=== PATIENT | male | born 1965 | race Caucasian/White ===

== ENCOUNTER → 2016-10-24 | Outpatient (CLI) | payer OTHER ==
[~2016-10-24] MED LIST: /BACL20TA; /BACL20TA OR; /CELE20CA PO; /FENT25PA TD; AMBI10TA PO; AMIT25TA2 OR; AMIT50TA PO; AMIT50TA2 OR; ATEN50TA2; ATEN50TA2 OR; BUPIVACAINE HCL 0.25% 10 ML VIAL As Ordered ONE; BUPIVACAINE HCL 0.25% 30 ML VIAL As Ordered ONE; COLA100C2; COLA100C2 OR; DURAGESIC PATCH; FISH1000 PO; FLON0.05; HYZAAR; HYZAAR OR; KETO-28; KETO-28 OR; LEVO25TABR PO; LYRI200C; LYRI200C OR; LYRI300C OR; NORT25CA2; NORT25CA2 OR; OXYC10TA56; PERC5TAB8; PERC5TAB8 OR; PINDOLOL; PINDOLOL OR; POTASSIUM PO; ROBA750T OR; SKEL800T5 OR; SOMA350T PO; TOPI100T; TOPI100T OR; TOPI200T; TOPOMAX OR; TORA; TORADOL; TORADOL IM; TRIA37.53 PO; TRIAMCINOLONE ACETONIDE SUSP 40 MG/ML VIAL (J3301) As Ordered ONE; VALI5TAB OR; VOLT1GEL TOP; [UNRECOGNIZED DRUG - OTHER] OR
--- NOTE | 2016-10-28 00:08 | ECWPNPC ---
PATIENT NAME: ALEX JI : 1965 GENDER: MALE VISIT DATE: 10/24/2016 DISCHARGE DATE: 10/24/16 1335 VISIT LOCKED DATE TIME: PHYSICIAN: JAVON LEONARDO RESOURCE: JAVON LEONARDO REASON FOR APPOINTMENT 1. TPI UNDER W/C HISTORY OF PRESENT ILLNESS HISTORY OF PRESENT ILLNESS: PAIN THE PATIENT DESCRIBES THE PAIN... FALL RISK SCREENING: SCREENING :NO FALLS IN THE PAST YEAR CURRENT MEDICATIONS TAKING ATENOLOL 50 MG TABLET 1 TABLET ORALLY BID, NOTES: 10/23/16@0 TAKING HYZAAR 100-25 MG TABLET 1 TABLET ORALLY ONCE A DAY, NOTES: 10/23/16 TAKING TRIAMTERENE-HCTZ 37.5-25 MG TABLET 1 TABLET IN THE MORNING ORALLY ONCE A DAY, NOTES: 0600 TAKING KETOROLAC TROMETHAMINE 10 MG TABLET 1 TABLET NEEDED ORALLY EVERY 6 HRS PRN, NOTES: 10/22/16@1500 TAKING LEVOTHYROXINE SODIUM 50 MCG TABLET 1 TABLET ORALLY ONCE A DAY, NOTES: 10/23/16@1000 TAKING PINDOLOL 5 MG TABLET 1 TABLET ORALLY QID, NOTES: 10/24/16@06 TAKING POTASSIUM CHLORIDE 10 PACKET 1 PACKET ORALLY ONCE A DAY, NOTES: 10/24/16@599 TAKING METFORMIN HCL ER 750 MG TABLET EXTENDED RELEASE 24 HOUR ORALLY TWICE A DAY, NOTES: 10/23/16@2000 TAKING TOUJEO SOLOSTAR 300 UNIT/ML SOLUTION PEN-INJECTOR 20 UNITS SUBCUTANEOUS EVERY A M, NOTES: 10/23/16@599 TAKING SOMA 350 MG TABLET 1 TABLET ORALLY AT BEDTIME MDD=1, NOTES: 10/23/16@2199 TAKING ROBAXIN-750 750 MG TABLET 1 TABLET ORALLY Q6H PRN, NOTES: 10/24/16 TAKING COLACE 100 MG CAPSULE 1 CAPSULE NEEDED ORALLY ONCE A DAY, NOTES: 10/23/16 TAKING TOPAMAX 100 MG TABLET 1 TABLET ORALLY TWICE A DAY, NOTES: 10/24/16@00 TAKING AMITRIPTYLINE HCL 50 MG TABLET 3 ORALLY ONCE A DAY, NOTES: 10/23/16@2199 TAKING LYRICA 300 MG CAPSULE 1 CAPSULE ORALLY Q12H MDD2, NOTES: 1/10/17@2200 TAKING FENTANYL 50 MCG/HR PATCH 72 HOUR 1 PATCH TO SKIN TRANSDERMAL 1 PATCH Q72H MDD 1 PATCH Q72H, NOTES: 10/24/16 ON TAKING PERCOCET 7.5-325 MG TABLET 1 ORALLY Q6H PRN MDD4, NOTES: 10/24/16@0600 NOT-TAKING ZYRTEC 10 MG TABLET 1 TABLET NEEDED ORALLY ONCE A DAY NOT-TAKING FLONASE 50 MCG/ACT SUSPENSION 1 SPRAY IN EACH NOSTRIL NASALLY ONCE A DAY MEDICATION LIST REVIEWED AND RECONCILED WITH THE PATIENT PAST MEDICAL HISTORY DM, HTN, CHRONIC PAIN , THYROID DISEASE, GERD, MIGRANES ALLERGIES AZITHROMYCIN: LIP SWELLING: ALLERGY SUMATRIPTAN: FACIAL SWELLING: ALLERGY PROPOXYPHENE: PRICKLY FEELING, RASH, SOB: ALLERGY ZYRTEC: RASH: ALLERGY SURGICAL HISTORY FUSION C3-C4 1994 3 SURGURIES TO LEFT KNEE 1993 SOCIAL HISTORY GENERAL: TOBACCO USE ARE YOU A:NONSMOKER LEARNING BARRIERS / SPECIAL NEEDS ABILITY TO UNDERSTAND WRITTEN INSTRUCTIONS AVERAGE , KNOWLEDGE OF EDUCATIONAL NEEDS/TREATMENT PLAN AVERAGE , RESTORATIONIST? YES CONGREGATION, LEARNING PREFERENCE VERBAL INSTRUCTION/DEMONSTRATION, READING , ORIENTED TO PLAN OF CARE: PATIENT , PAIN MANAGEMENT PATIENT , TEACHING MATERIALS PRINTED HANDOUT , RESPONSE TO EDUCATION DEMOSTRATES INDEPENDENTELY , TEACHING MATERIALS PRINTED HANDOUT , RESPONSE TO EDUCATION DEMONSTRATES INDEPENDENTLY , ORIENTED TO PLAN OF CARE: PATIENT, PAIN MANAGEMENT PATIENT, ORIENTED TO PLAN OF CARE: PATIENT, PAIN MANAGEMENT PATIENT. NEW PATIENT PAIN DIARY TODAY'S VISITNOTES FROM 0-10, WHAT LEVEL IS YOUR PAIN TODAY?0 PAIN CLINIC PFS, CLERGY, PUBLIC HEALTH REFERRALS PFS REFERRAL NEEDED?NO CLERGY REFERRAL NEEDED?NO PUBLIC HEALTH REFERRAL NEEDED?NO WAS THE PROVIDER NOTIFIED OF ANY PERTINENT INFO?NO PFS REFERRAL NEEDED?NO CLERGY REFERRAL NEEDED?NO PUBLIC HEALTH REFERRAL NEEDED?NO WAS THE PROVIDER NOTIFIED OF ANY PERTINENT INFO?NO ADVANCED DIRECTIVES HEALTH CARE PROXY? YES POWER OF STATION HELPER? YES HOSPITALIZATION/MAJOR DIAGNOSTIC PROCEDURE SURGERIES HYPERTENSION HEAD INJURY 03/1986 REVIEW OF SYSTEMS CONSTITUTIONAL: ANY CHANGE IN YOUR MEDICAL CONDITION? NO . CHILLS NO . FEVER NO . INFECTION: DO YOU HAVE NEW INFECTIONS? NO . DO YOU HAVE HISTORY OF MRSA? NO . MUSCULOSKELETAL: ANY NEW PATTERNS OF PAIN OR NUMBNESS? NO . GASTROENTEROLOGY: ANY NEW CHANGE IN BOWEL CONTROL? NO . GENITOURINARY: ANY NEW CHANGE IN BLADDER CONTROL? NO . IS THERE A CHANCE YOU COULD BE ? NO . HEMATOLOGY/LYMPH: DO YOU TAKE ANY BLOOD THINNERS? (FOR EXAMPLE- COUMADIN, PLAVIX, AGGRENOX, PLATEL, PRADAXA, OR XARELTO) NO . WHEN WAS YOUR LAST DOSE? DATE: TIME: . NEUROLOGY: HAVE YOU FALLEN IN THE PAST 6 MONTHS? NO . ANY NEW EXTREMITY NUMBNESS OR WEAKNESS? NO . CARDIOLOGY: DO YOU HAVE A PACEMAKER OR DEFIBRILLATOR? NO . RESPIRATORY: HAVE YOU BEEN SICK IN THE PAST WEEK? NO . FEVER NO . FLU LIKE SYMPTOMS? NO . COUGH NO . INTEGUMENTARY: DO YOU HAVE ANY RASHES OR OPEN SORES? NO . ALLERGIC/IMMUNO: ARE YOU ALLERGIC TO SHELLFISH OR IV DYE? NO . ANY NEW ALLERGIES? NO . PSYCHIATRIC: DO YOU HAVE THOUGHTS OF HURTING YOURSELF OR SOMEONE ELSE? NO . ARE YOU ABUSED, NEGLECTED, OR IN AN UNSAFE ENVIRONMENT? NO . ENDOCRINOLOGY: ARE YOU DIABETIC? YES . OTHER: DO YOU NEED ANY PRESCRIPTIONS? NO . IF YES, PLEASE LIST: ____ . ANY NEW PROBLEMS WITH YOUR MEDICATIONS? NO . WHEN DID YOU LAST EAT? ____10/23/16 . WHEN DID YOU LAST DRINK? ____10/23/16 . WHAT DID YOU LAST DRINK? ____WATER @0600 WITH MEDS . NAME OF PERSON DRIVING YOU HOME? ____WIFE . DO YOU HAVE ANY OTHER QUESTIONS OR CONCERNS NO . REVIEWED BY: PROVIDER: . VITAL SIGNS WT 330 LBS, HT 75 IN, BMI 41.24 INDEX, BP 122/76 MM HG, HR 79 /MIN, RR 18 /MIN, TEMP 97.9 F, OXYGEN SAT % 95%, NA INITIALS SC 10:16, REVIEWED BY: VD. ASSESSMENTS MYALGIA - M79.1 (PRIMARY) PROCEDURES PN TRIGGER POINT INJECTION WITH STEROIDS PRE PROCEDURE DIAGNOSIS 1. MYALGIA 2. PAIN AT BILATERAL NECK, BILATERAL SHOULDER, AND BILATERAL THORACIC AREA POST PROCEDURE DIAGNOSIS 1. MYALGIA 2. PAIN AT BILATERAL NECK, BILATERAL SHOULDER, AND BILATERAL THORACIC AREA PROCEDURE TRIGGER POINT INJECTION AT BILATERAL NECK, BILATERAL SHOULDER, AND BILATERAL THORACIC AREA SURGEON DR. JAVON LEONARDO FOXING CLOSER NONE ANESTHESIA LOCAL PRE PROCEDURE NOTE THE PATIENT HAS A HISTORY OF CHRONIC PAIN AT THE RIGHT AND LEFT NECK, RIGHT AND LEFT SHOULDER, AND RIGHT AND LEFT THORACIC AREA. I EVALUATE THE PATIENT AND REVIEWED THE CHART. THERE IS EVIDENCE OF BANDS OF TISSUE WITH RESTRICTION OF MOVEMENT AND PRESENCE OF TRIGGER POINT AT THE AFFECTED AREA. I WENT OVER THE RISKS, ALTERNATIVES, AND BENEFITS ASSOCIATED WITH THIS PROCEDURE. THE PATIENT WOULD LIKE TO PROCEED AND GIVE CONSENT TO PERFORMED THE PROCEDURE. THE PATIENT DENIES UNEXPLAINABLE WEIGHT LOSS, FEVER, CHILLS, OR NEW CHANGES IN URINARY OR BOWEL CONTROL DESCRIPTION OF PROCEDURE THE PATIENT WAS BROUGHT TO THE PROCEDURE ROOM AND PLACED IN THE SITTING POSITION. THE AREA WAS CLEANED WITH ALCOHOL. THE PROCEDURE WAS DONE USING ASEPTIC STERILE TECHNIQUE. I CHECKED LATERALITY AND THE LEVEL WHERE THE PROCEDURE WAS GOING TO BE PERFORMED WITH THE PATIENT AND THE SUPPORTING STAFF AT THE MOMENT OF THE TIME OUT IN THE PROCEDURE ROOM. USING A 25-GAUGE NEEDLE, TRIGGER POINTS WERE INJECTED AT THE RIGHT AND LEFT NECK, RIGHT AND LEFT SHOULDER, AND RIGHT AND LEFT THORACIC AREA WITH A TOTAL OF 40 ML OF BUPIVACAINE 0.25% AND KENALOG 40 MG. THERE WAS NO EVIDENCE OF BLOOD, PARESTHESIA OR CEREBROSPINAL FLUID DURING THE PROCEDURE. THE PATIENT WAS SENT TO THE RECOVERY ROOM. THE PATIENT WAS MOVING THE EXTREMITIES AND DOING WELL. THERE WAS NO COMPLICATION DURING THE PROCEDURE POST PROCEDURE NOTE THE PATIENT WILL BE SEEN IN A FOLLOW UP IN THE NEXT FEW WEEKS. INSTRUCTIONS WERE GIVEN, QUESTIONS WERE ANSWERED, AND THE PATIENT EXPRESSED UNDERSTANDING AND AGREES WITH THE PLAN. PN WORKMANS' COMP OPINION IN YOUR OPINION, WAS THE INCIDENT THAT THE PATIENT DESCRIBED THE COMPETENT MEDICAL CAUSE OF THIS INJURY/ILLNESS? YES ARE THE PATIENT'S COMPLAINTS CONSISTENT WITH HIS/HER HISTORY OF THE INJURY/ILLNESS? YES IS THE PATIENT'S HISTORY OF THE INJURY/ILLNESS CONSISTENT WITH YOUR OBJECTIVE FINDING? YES WHAT IS THE PERCENTAGE OF TEMPORARY IMPAIRMENT? TOTAL = 100% IS THE PATIENT WORKING? NO DOCTOR ON SITE: JAVON VALDEZ MD PROCEDURE CODES 29135 INJECT TRIGGER POINTS, =/> 3 FOLLOW UP 3 WEEKS ELECTRONICALLY SIGNED BY JAVON LEONARDO MD ON 10/27/2016 AT 05:59 PM EST DISCLAIMER : THIS IS A VISIT SUMMARY EXTRACTED FROM THE [employer] CHART. IT IS NOT A COPY OF THE [employer] PROGRESS NOTE. MTDShiloh
== END ==
LOC: M PAIN 09:40
PROVIDERS: ATTEND Anesthesiology
DX: G89.29 Other chronic pain (principal); M79.1 Myalgia; M54.6 Pain in thoracic spine; M54.2 Cervicalgia; M25.511 Pain in right shoulder; M25.512 Pain in left shoulder; Z79.899 Other long term (current) drug therapy; Z79.891 Long term (current) use of opiate analgesic; Z79.84 Long term (current) use of oral hypoglycemic drugs; Z88.1 Allergy status to other antibiotic agents; Z88.5 Allergy status to narcotic agent; Z88.8 Allergy status to other drugs, medicaments and biological substances
CPT/HCPCS: 20553; J3301

== ENCOUNTER → 2016-11-17 | Outpatient (CLI) | payer OTHER ==
[~2016-11-17] MED LIST changes: -BUPIVACAINE HCL 0.25% 10 ML VIAL As Ordered ONE; -BUPIVACAINE HCL 0.25% 30 ML VIAL As Ordered ONE; -TRIAMCINOLONE ACETONIDE SUSP 40 MG/ML VIAL (J3301) As Ordered ONE
--- NOTE | 2016-11-24 23:54 | ECWPNPC ---
PATIENT NAME: ALEX JI : 1965 GENDER: MALE VISIT DATE: 11/17/2016 DISCHARGE DATE: 11/17/16 1518 VISIT LOCKED DATE TIME: PHYSICIAN: JAVON LEONARDO RESOURCE: JAVON LEONARDO REASON FOR APPOINTMENT 1. W/C NECK, BACK, HEAD HISTORY OF PRESENT ILLNESS HISTORY OF PRESENT ILLNESS: PAIN THE PATIENT DESCRIBES THE PAIN... 51 YEAR OLD MALE PATIENT WITH HISTORY OF CHRONIC NECK, BACK, AND HEAD PAIN. PATIENT DESCRIBES THE PAIN ACHING, TENDER, THROBBING, SORE, AND HAVING IT ALL THE TIME WITH A PAIN SCORE OF 8/10. PATIENT WAS INJURED IN A WORK RELATED INJURY ON 04/13/1988 WORKING FOR [employer], PATIENT WAS TIEING DOWN A ROLL OF CARPET WHEN ANOTHER ROLL OF CARPET FELL ON HIM, INJURING HIS NECK, BACK, AND HEAD. PATIENT RECEIVED A TPI ON 10/24/2016 AND STATES THAT HE FELT A 50 PERCENT REDUCTION IN PAIN. PATIENT REPORTS THAT HE HAS TIRED PHYSICAL THERAPY IN THE PAST AND IT WORKED FOR HIM, DEPENDING ON WHAT THE PHYSICAL THERAPIST DID. PATIENT REPORTS THAT HIS HEADACHES HAVE BEGAN TO COME BACK. THAT SINCE THE LAST INJECTION HE SAW A REDUCTION IN THE NUMBER OF HEADACHES HE WOULD GET. PATIENT REPORTS THAT WHEN HE DOES GET A HEADACHE LIGHTS AND SOUNDS ONLY MAKE IT WORST, AND IT AFFECTS HIS ABILITY TO PERFORM NORMAL ACTIVITIES. PATIENT DENIES UNEXPLAINABLE WEIGHT LOSS, FEVER, CHILLS, NEW CHANGES ON HIS URINARY OR BOWEL CONTROL. FALL RISK SCREENING: SCREENING :NO FALLS IN THE PAST YEAR CURRENT MEDICATIONS TAKING ATENOLOL 50 MG TABLET 1 TABLET ORALLY BID, NOTES: 10/23/16@2200 TAKING HYZAAR 100-25 MG TABLET 1 TABLET ORALLY ONCE A DAY, NOTES: 10/23/16@2200 TAKING TRIAMTERENE-HCTZ 37.5-25 MG TABLET 1 TABLET IN THE MORNING ORALLY ONCE A DAY, NOTES: 0600 TAKING KETOROLAC TROMETHAMINE 10 MG TABLET 1 TABLET NEEDED ORALLY EVERY 6 HRS PRN, NOTES: 10/22/16@1500 TAKING LEVOTHYROXINE SODIUM 50 MCG TABLET 1 TABLET ORALLY ONCE A DAY, NOTES: 10/23/16@1000 TAKING PINDOLOL 5 MG TABLET 1 TABLET ORALLY QID, NOTES: 10/24/16@0600 TAKING POTASSIUM CHLORIDE 10 MEQ (PRT) TABLET EXTENDED RELEASE 1 TABLET ORALLY ONCE A DAY, NOTES: 10/24/16@0600 TAKING METFORMIN HCL ER 750 MG TABLET EXTENDED RELEASE 24 HOUR ORALLY TWICE A DAY, NOTES: 10/23/16@2000 TAKING TOUJEO SOLOSTAR 300 UNIT/ML SOLUTION PEN-INJECTOR 10 UNITS SUBCUTANEOUS EVERY A M, NOTES: 10/23/16@0600 TAKING SOMA 350 MG TABLET 1 TABLET ORALLY AT BEDTIME MDD=1, NOTES: 10/23/16@0 TAKING ROBAXIN-750 750 MG TABLET 1 TABLET ORALLY Q6H PRN, NOTES: 10/24/16@599 TAKING COLACE 100 MG CAPSULE 1 CAPSULE NEEDED ORALLY ONCE A DAY, NOTES: 10/23/16@2199 TAKING TOPAMAX 100 MG TABLET 1 TABLET ORALLY TWICE A DAY, NOTES: 10/24/16@599 TAKING AMITRIPTYLINE HCL 50 MG TABLET 3 ORALLY ONCE A DAY, NOTES: 10/23/16@0 TAKING LYRICA 300 MG CAPSULE 1 CAPSULE ORALLY Q12H MDD2, NOTES: 10/24/16@2199 TAKING FENTANYL 50 MCG/HR PATCH 72 HOUR 1 PATCH TO SKIN TRANSDERMAL 1 PATCH Q72H MDD 1 PATCH Q72H, NOTES: 10/24/16 ON TAKING PERCOCET 7.5-325 MG TABLET 1 ORALLY Q6H PRN MDD4 NOT-TAKING FLONASE 50 MCG/ACT SUSPENSION 1 SPRAY IN EACH NOSTRIL NASALLY ONCE A DAY DISCONTINUED SOMA 350 MG TABLET 1 TABLET NEEDED ORALLY BEFORE BEDTIME PRN MDD1 DISCONTINUED ZYRTEC 10 MG TABLET 1 TABLET NEEDED ORALLY ONCE A DAY MEDICATION LIST REVIEWED AND RECONCILED WITH THE PATIENT PAST MEDICAL HISTORY DM, HTN, CHRONIC PAIN , THYROID DISEASE, GERD, MIGRANES ALLERGIES AZITHROMYCIN: LIP SWELLING: ALLERGY SUMATRIPTAN: FACIAL SWELLING: ALLERGY PROPOXYPHENE: PRICKLY FEELING, RASH, SOB: ALLERGY SURGICAL HISTORY FUSION C3-C4 1994 3 SURGURIES TO LEFT KNEE 1993 FAMILY HISTORY NO FAMILY HISTORY DOCUMENTED. 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 NEW PATIENT PAIN DIARY TODAY'S VISITNOTES FROM 0-10, WHAT LEVEL IS YOUR PAIN TODAY?0 PAIN CLINIC PFS, CLERGY, PUBLIC HEALTH REFERRALS PFS REFERRAL NEEDED?NO CLERGY REFERRAL NEEDED?NO PUBLIC HEALTH REFERRAL NEEDED?NO WAS THE PROVIDER NOTIFIED OF ANY PERTINENT INFO?NO PFS REFERRAL NEEDED?NO CLERGY REFERRAL NEEDED?NO PUBLIC HEALTH REFERRAL NEEDED?NO WAS THE PROVIDER NOTIFIED OF ANY PERTINENT INFO?NO HOSPITALIZATION/MAJOR DIAGNOSTIC PROCEDURE SURGERIES HYPERTENSION HEAD INJURY 03/1986 REVIEW OF SYSTEMS CONSTITUTIONAL: ANY CHANGE IN YOUR MEDICAL CONDITION? NO . CHILLS NO . FEVER NO . INFECTION: DO YOU HAVE NEW INFECTIONS? NO . DO YOU HAVE HISTORY OF MRSA? NO . MUSCULOSKELETAL: ANY NEW PATTERNS OF PAIN OR NUMBNESS? NO . GASTROENTEROLOGY: ANY NEW CHANGE IN BOWEL CONTROL? NO . GENITOURINARY: ANY NEW CHANGE IN BLADDER CONTROL? NO . IS THERE A CHANCE YOU COULD BE ? NO . HEMATOLOGY/LYMPH: DO YOU TAKE ANY BLOOD THINNERS? (FOR EXAMPLE- COUMADIN, PLAVIX, AGGRENOX, PLATEL, PRADAXA, OR XARELTO) NO . WHEN WAS YOUR LAST DOSE? DATE: TIME: . NEUROLOGY: HAVE YOU FALLEN IN THE PAST 6 MONTHS? YES . ANY NEW EXTREMITY NUMBNESS OR WEAKNESS? NO . CARDIOLOGY: DO YOU HAVE A PACEMAKER OR DEFIBRILLATOR? NO . RESPIRATORY: HAVE YOU BEEN SICK IN THE PAST WEEK? NO . FEVER NO . FLU LIKE SYMPTOMS? NO . COUGH NO . INTEGUMENTARY: DO YOU HAVE ANY RASHES OR OPEN SORES? NO . ALLERGIC/IMMUNO: ARE YOU ALLERGIC TO SHELLFISH OR IV DYE? NO . ANY NEW ALLERGIES? NO . PSYCHIATRIC: DO YOU HAVE THOUGHTS OF HURTING YOURSELF OR SOMEONE ELSE? NO . ARE YOU ABUSED, NEGLECTED, OR IN AN UNSAFE ENVIRONMENT? NO . ENDOCRINOLOGY: ARE YOU DIABETIC? YES . OTHER: DO YOU NEED ANY PRESCRIPTIONS? YES . IF YES, PLEASE LIST: ROBAXIN . ANY NEW PROBLEMS WITH YOUR MEDICATIONS? NO . WHEN DID YOU LAST EAT? ____ . WHEN DID YOU LAST DRINK? ____ . WHAT DID YOU LAST DRINK? ____ . NAME OF PERSON DRIVING YOU HOME? ____ . DO YOU HAVE ANY OTHER QUESTIONS OR CONCERNS YES, FOLLOWING WITH [facility] FOR RIGHT SHOULDER AND LEFT KNEE . REVIEWED BY: PROVIDER: JAVON LEONARDO MD . VITAL SIGNS WT 330 LBS, HT 75 IN, BMI 41.24 INDEX, BP 143/98 MM HG, HR 85 /MIN, RR 18 /MIN, TEMP 97.2 F, OXYGEN SAT % 95%, NA INITIALS SC 13:32. EXAMINATION : PATIENT IS ALERT O X 3 AND COOPERATIVE. PATIENT AMBULATES WITH A CANE ON THE RIGHT HAND, WALKS WITH A WIDE ANGLE ANTALGIC GAIT, AND HAS STIFFNESS IN HIS BACK. PATIENT TAKES A WHILE TO STRAIGHTEN OUT HIS BACK. THERE IS TENDERNESS IN THE PATIENT'S CERVICAL AND LUMBAR PARASPINAL MUSCLE GROUP WITH BANDS OF TISSUES, RESTRICTION OF MOVEMENT, AND PRESENCE OF TRIGGER POINTS. PATIENT IS ABLE TO ABDUCT HIS LEFT ARM AT 80 DEGREES AND RIGHT ARM AT 50 DEGREES. PATIENT TRUNK AREA HAS LIMITED FLEXIBILITY, STARTED TO DEVELOP SPASTICITY WHEN HE ATTEMPTED TO FLEX AND EXTEND. PATIENT IS ABLE TO EXTEND NECK AT 5 DEGREES. PATIENT IS ABLE TO TURN HIS NECK TO THE RIGHT AT 45 DEGREES AND TO THE LEFT AT 5 DEGREES. PATIENT LEFT LEG IS WEAKER AT FLEXION AND EXTENSION. ASSESSMENTS CHRONIC MIGRAINE WITHOUT AURA, INTRACTABLE, WITHOUT STATUS MIGRAINOSUS - G43.719 (PRIMARY) MYALGIA - M79.1 SPONDYLOSIS WITHOUT MYELOPATHY OR RADICULOPATHY, LUMBAR REGION - M47.816 SPONDYLOSIS WITHOUT MYELOPATHY OR RADICULOPATHY, LUMBOSACRAL REGION - M47.817 TREATMENT CHRONIC MIGRAINE WITHOUT AURA, INTRACTABLE, WITHOUT STATUS MIGRAINOSUS NOTES: WE DISCUSSED SEVERAL ISSUES WITH MR. JI PAIN MANAGEMENT CASE. AT THIS TIME THE PATIENT WILL CONTINUE ON THE SAME MEDICATION REGIMEN BEFORE AND RECEIVE A REFILL OF THE MEDICATIONS. AT THIS TIME THE PATIENT IS A GOOD CANDIDATE FOR A BOTOX INJECTION AND A LUMBAR FACET BLOCK. WE DISCUSSED THE RISK, ALTERNATIVES, AND BENEFITS AND THE PATIENT WOULD LIKE TO PROCEED. PATIENT WILL BE BOOKED PENDING APPROVAL. SINCE PATIENT SAW GOOD RESULTS FOR PHYSICAL THERAPY I WILL ORDERED FOR THE PATIENT TO BEGIN PT AGAIN. PATIENT DID NOT BRING MEDICATION BOTTLES IN TODAY, AND WAS ADVISED TO ALL BRING THE BOTTLES TO EVERY VISIT. URINE TOX ORDERED ON 06/30/2016 SHOWS INCONSISTENT RESULTS, I WILL ORDER ANOTHER UTOX TODAY. PATIENT TO FOLLOW UP WITH ME IN 3 WEEKS. PROCEDURES PN WORKMANS' COMP OPINION IN YOUR OPINION, WAS THE INCIDENT THAT THE PATIENT DESCRIBED THE COMPETENT MEDICAL CAUSE OF THIS INJURY/ILLNESS? YES ARE THE PATIENT'S COMPLAINTS CONSISTENT WITH HIS/HER HISTORY OF THE INJURY/ILLNESS? YES IS THE PATIENT'S HISTORY OF THE INJURY/ILLNESS CONSISTENT WITH YOUR OBJECTIVE FINDING? YES WHAT IS THE PERCENTAGE OF TEMPORARY IMPAIRMENT? TOTAL = 100% IS THE PATIENT WORKING? NO DOCTOR ON SITE: JAVON VALDEZ MD PREVENTIVE MEDICINE PAIN CLINIC TEACHING: PROCEDURE TEACHING LUMBAR FACET AND BOTOX INFORMATION REVIEWED WITH PATIENT.. PROCEDURE CODES FA211 ESTABILISHED PATIENT [facility] CHARGE [id number] PAIN ASSESS POS TOOL F/U PLAN DOC G8427 DOC MEDS VERIFIED W/PT OR RE FOLLOW UP 3 WEEKS ELECTRONICALLY SIGNED BY JVAON LEONARDO MD ON 11/24/2016 AT 09:55 AM EST DISCLAIMER : THIS IS A VISIT SUMMARY EXTRACTED FROM THE [employer] CHART. IT IS NOT A COPY OF THE [employer] PROGRESS NOTE. MTDD
== END ==
LOC: M PAIN 13:30
PROVIDERS: ATTEND Anesthesiology
DX: Z09 Encounter for follow-up examination after completed treatment for conditions other than malignant neoplasm (principal); G89.29 Other chronic pain; G43.719 Chronic migraine without aura, intractable, without status migrainosus; M79.1 Myalgia; M47.816 Spondylosis without myelopathy or radiculopathy, lumbar region; M47.817 Spondylosis without myelopathy or radiculopathy, lumbosacral region; M54.2 Cervicalgia; E11.9 Type 2 diabetes mellitus without complications; I10 Essential (primary) hypertension; E07.9 Disorder of thyroid, unspecified; K21.9 Gastro-esophageal reflux disease without esophagitis; G43.909 Migraine, unspecified, not intractable, without status migrainosus; Z88.1 Allergy status to other antibiotic agents; Z88.8 Allergy status to other drugs, medicaments and biological substances; Z79.84 Long term (current) use of oral hypoglycemic drugs; Z79.891 Long term (current) use of opiate analgesic; Z79.899 Other long term (current) drug therapy

== ENCOUNTER → 2016-12-19 | Outpatient (CLI) | payer OTHER ==
--- NOTE | 2016-12-30 23:22 | ECWPNPC ---
PATIENT NAME: ALEX JI : 1965 GENDER: MALE VISIT DATE: 12/19/2016 DISCHARGE DATE: 12/19/16 1613 VISIT LOCKED DATE TIME: PHYSICIAN: JAVON LEONARDO RESOURCE: JAVON LEONARDO REASON FOR APPOINTMENT 1. W/C HISTORY OF PRESENT ILLNESS HISTORY OF PRESENT ILLNESS: PAIN THE PATIENT DESCRIBES THE PAIN... 51 YEAR OLD MALE PATIENT WITH HISTORY OF CHRONIC NECK, BACK, AND HEAD PAIN. PATIENT DESCRIBES THE PAIN TENDER, THROBBING, SORE, SHOOTING, IT COMES AND GOES, AND HAVING IT ALL THE TIME WITH A PAIN SCORE OF 8/10 ON TODAY'S VISIT. PATIENT WAS INJURED IN A WORK RELATED INJURY ON 04/13/1988 WORKING FOR [employer], PATIENT WAS TIEING DOWN A ROLL OF CARPET WHEN ANOTHER ROLL OF CARPET FELL ON HIM, INJURING HIS NECK, BACK, AND HEAD. PATIENT REPORTS THAT HE IS SUFFERING FROM HEADACHES, LIGHTS AND SOUNDS ONLY MAKE IT WORST. PATIENT REPORTS THAT HE HAS DIFFICULTIES SLEEPING. PATIENT DENIES UNEXPLAINABLE WEIGHT LOSS, FEVER, CHILLS, NEW CHANGES ON HIS URINARY OR BOWEL CONTROL. FALL RISK SCREENING: SCREENING :NO FALLS IN THE PAST YEAR CURRENT MEDICATIONS TAKING ATENOLOL 50 MG TABLET 1 TABLET ORALLY BID, NOTES: 10/23/16@2200 TAKING HYZAAR 100-25 MG TABLET 1 TABLET ORALLY ONCE A DAY, NOTES: 10/23/16@2199 TAKING TRIAMTERENE-HCTZ 37.5-25 MG TABLET 1 TABLET IN THE MORNING ORALLY ONCE A DAY, NOTES: 0600 TAKING LEVOTHYROXINE SODIUM 50 MCG TABLET 1 TABLET ORALLY ONCE A DAY, NOTES: 10/23/16@1000 TAKING PINDOLOL 5 MG TABLET 1 TABLET ORALLY QID, NOTES: 10/24/16@0600 TAKING POTASSIUM CHLORIDE 10 MEQ (PRT) TABLET EXTENDED RELEASE 1 TABLET ORALLY ONCE A DAY, NOTES: 10/24/16@599 TAKING METFORMIN HCL ER 750 MG TABLET EXTENDED RELEASE 24 HOUR ORALLY TWICE A DAY, NOTES: 10/23/16@1999 TAKING TOUJEO SOLOSTAR 300 UNIT/ML SOLUTION PEN-INJECTOR 10 UNITS SUBCUTANEOUS EVERY A M, NOTES: 10/23/16@0600 TAKING AMITRIPTYLINE HCL 50 MG TABLET 3 ORALLY ONCE A DAY, NOTES: 10/23/16@2200 TAKING PERCOCET 7.5-325 MG TABLET 1 ORALLY Q6H PRN MDD4 TAKING FENTANYL 50 MCG/HR PATCH 72 HOUR 1 PATCH TO SKIN TRANSDERMAL 1 PATCH Q72H MDD 1 PATCH Q72H, NOTES: 10/24/16 ON TAKING LYRICA 300 MG CAPSULE 1 CAPSULE ORALLY TWICE A DAY FOR PAIN TAKING SOMA 350 MG TABLET 1 TABLET NEEDED ORALLY 1 PER DAY TAKING ROBAXIN-750 750 MG TABLET 1 TABLET ORALLY EVERY 4 HRS PRN FOR SPASMS AND PAIN MDD3 TAKING COLACE 100 MG CAPSULE 1 CAPSULE NEEDED ORALLY ONCE A DAY TAKING TOPAMAX 100 MG TABLET 1 TABLET ORALLY TWICE A DAY TAKING KETOROLAC TROMETHAMINE 10 MG TABLET 1 TABLET WITH FOOD OR MILK NEEDED ORALLY EVERY 6 HRS NEEDED FOR PAIN MDD3 NOT-TAKING AMITRIPTYLINE HCL 50 MG TABLET 1 TABLET ORALLY THREE TIMES DAILY NOT-TAKING FLONASE 50 MCG/ACT SUSPENSION 1 SPRAY IN EACH NOSTRIL NASALLY ONCE A DAY DISCONTINUED KETOROLAC TROMETHAMINE 10 MG TABLET 1 TABLET NEEDED ORALLY EVERY 6 HRS PRN, NOTES: 10/22/16@1500 DISCONTINUED SOMA 350 MG TABLET 1 TABLET ORALLY AT BEDTIME MDD=1, NOTES: 10/23/16@0 DISCONTINUED ROBAXIN-750 750 MG TABLET 1 TABLET ORALLY Q6H PRN, NOTES: 10/24/16@0600 DISCONTINUED COLACE 100 MG CAPSULE 1 CAPSULE NEEDED ORALLY ONCE A DAY, NOTES: 10/23/16@2199 DISCONTINUED TOPAMAX 100 MG TABLET 1 TABLET ORALLY TWICE A DAY, NOTES: 10/24/16@0600 DISCONTINUED LYRICA 300 MG CAPSULE 1 CAPSULE ORALLY Q12H MDD2, NOTES: 10/24/16@2199 MEDICATION LIST REVIEWED AND RECONCILED WITH THE PATIENT PAST MEDICAL HISTORY DM, HTN, CHRONIC PAIN , THYROID DISEASE, GERD, MIGRANES ALLERGIES AZITHROMYCIN: LIP SWELLING: ALLERGY SUMATRIPTAN: FACIAL SWELLING: ALLERGY PROPOXYPHENE: PRICKLY FEELING, RASH, SOB: ALLERGY SURGICAL HISTORY FUSION C3-C4 1994 3 SURGURIES TO LEFT KNEE 1993 FAMILY HISTORY NO FAMILY HISTORY DOCUMENTED. 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 NEW PATIENT PAIN DIARY TODAY'S VISITNOTES FROM 0-10, WHAT LEVEL IS YOUR PAIN TODAY?0 PAIN CLINIC PFS, CLERGY, PUBLIC HEALTH REFERRALS PFS REFERRAL NEEDED?NO CLERGY REFERRAL NEEDED?NO PUBLIC HEALTH REFERRAL NEEDED?NO WAS THE PROVIDER NOTIFIED OF ANY PERTINENT INFO?NO PFS REFERRAL NEEDED?NO CLERGY REFERRAL NEEDED?NO PUBLIC HEALTH REFERRAL NEEDED?NO WAS THE PROVIDER NOTIFIED OF ANY PERTINENT INFO?NO HOSPITALIZATION/MAJOR DIAGNOSTIC PROCEDURE SURGERIES HYPERTENSION HEAD INJURY 03/1986 REVIEW OF SYSTEMS CONSTITUTIONAL: ANY CHANGE IN YOUR MEDICAL CONDITION? NO . CHILLS NO . FEVER NO . INFECTION: DO YOU HAVE NEW INFECTIONS? NO . DO YOU HAVE HISTORY OF MRSA? NO . MUSCULOSKELETAL: ANY NEW PATTERNS OF PAIN OR NUMBNESS? NO . GASTROENTEROLOGY: ANY NEW CHANGE IN BOWEL CONTROL? NO . GENITOURINARY: ANY NEW CHANGE IN BLADDER CONTROL? NO . IS THERE A CHANCE YOU COULD BE ? NO . HEMATOLOGY/LYMPH: DO YOU TAKE ANY BLOOD THINNERS? (FOR EXAMPLE- COUMADIN, PLAVIX, AGGRENOX, PLATEL, PRADAXA, OR XARELTO) NO . WHEN WAS YOUR LAST DOSE? DATE: TIME: . NEUROLOGY: HAVE YOU FALLEN IN THE PAST 6 MONTHS? YES PT REPORTS A LABRUM TEAR RIGHT SHOULDER FROM FALL 14 MONTHS AGO . ANY NEW EXTREMITY NUMBNESS OR WEAKNESS? NO . CARDIOLOGY: DO YOU HAVE A PACEMAKER OR DEFIBRILLATOR? NO . RESPIRATORY: HAVE YOU BEEN SICK IN THE PAST WEEK? NO . FEVER NO . FLU LIKE SYMPTOMS? NO . COUGH NO . INTEGUMENTARY: DO YOU HAVE ANY RASHES OR OPEN SORES? NO . ALLERGIC/IMMUNO: ARE YOU ALLERGIC TO SHELLFISH OR IV DYE? NO . ANY NEW ALLERGIES? NO . PSYCHIATRIC: DO YOU HAVE THOUGHTS OF HURTING YOURSELF OR SOMEONE ELSE? NO . ARE YOU ABUSED, NEGLECTED, OR IN AN UNSAFE ENVIRONMENT? NO . ENDOCRINOLOGY: ARE YOU DIABETIC? NO . OTHER: DO YOU NEED ANY PRESCRIPTIONS? YES PATCHES . IF YES, PLEASE LIST: ____ . ANY NEW PROBLEMS WITH YOUR MEDICATIONS? NO . WHEN DID YOU LAST EAT? ____ . WHEN DID YOU LAST DRINK? ____ . WHAT DID YOU LAST DRINK? ____ . NAME OF PERSON DRIVING YOU HOME? ____ . DO YOU HAVE ANY OTHER QUESTIONS OR CONCERNS YES PT WOULD LIKE TO DISCUSS BOTOX INJECTIONS . REVIEWED BY: PROVIDER: JAVON LEONARDO MD . VITAL SIGNS WT 330 LBS, HT 75 IN, BMI 41.24 INDEX, BP 143/87 MM HG, HR 79 /MIN, RR 18 /MIN, TEMP 97.4 F, OXYGEN SAT % 98, SAFE IN ENV? (Y/N) YES, NA INITIALS TL 1417, REVIEWED BY: KAROLINA. EXAMINATION : PATIENT IS ALERT O X 3 AND COOPERATIVE. PATIENT HAS DIFFICULTIES STANDING UP FOR THE EXAMINATION. PATIENT AMBULATES WITH SMALL STEPS AND WITH A CANE ON THE RIGHT HAND. PATIENT HAS A SMALL GAIT AND BALANCE ISSUES. THERE IS TENDERNESS IN THE CERVICAL PARASPINAL MUSCLE GROUP WITH BANDS OF TISSUES, RESTRICTION OF MOVEMENT, AND PRESENCE OF TRIGGER POINTS. AUTONOMIC DYSREFLEXIA WHEN I EXAMINED THE NECK. PATIENT IS ABLE TO ROTATE THE HIS NECK TO THE LEFT AT 5 DEGREES AND TO THE RIGHT AT 15 DEGREES. PATIENT IS ABLE TO EXTEND HIS NECK AT 30 DEGREES AND FLEX AT 5 DEGREES WITH DIFFICULTIES. THERE IS TENDERNESS IN THE LUMBAR PARASPINAL MUSCLE GROUP WITH BANDS OF TISSUES, RESTRICTION OF MOVEMENT, AND PRESENCE OF TRIGGER POINTS. ASSESSMENTS INTRACTABLE CHRONIC MIGRAINE WITHOUT AURA AND WITHOUT STATUS MIGRAINOSUS - G43.719 (PRIMARY) MYALGIA - M79.1 SPONDYLOSIS WITHOUT MYELOPATHY OR RADICULOPATHY, LUMBAR REGION - M47.816 SPONDYLOSIS WITHOUT MYELOPATHY OR RADICULOPATHY, LUMBOSACRAL REGION - M47.817 CERVICALGIA - M54.2 TREATMENT INTRACTABLE CHRONIC MIGRAINE WITHOUT AURA AND WITHOUT STATUS MIGRAINOSUS REFILL PERCOCET TABLET, 7.5-325 MG, 1, ORALLY, Q6H PRN MDD4, 30 DAY(S), 100, REFILLS 0 NOTES: WE DISCUSSED SEVERAL ISSUES WITH MR. JI PAIN MANAGEMENT CASE. PATIENT IS A GOOD CANDIDATE FOR A TRIGGER POINT INJECTION IN THE NECK AREA. WE DISCUSSED THE RISK, BENEFITS, AND ALTERNATIVES AND THE PATIENT WOULD LIKE TO PROCEED. PATIENT WILL BE BOOKED PENDING APPROVAL. DISCUSSED WITH THE PATIENT THAT SINCE THE HEADACHES AND MIGRAINES IS BEING APPEALED BY WORKER COMP AT THIS TIME, I WILL NOT BE ABLE TO REQUEST FOR BOTOX INJECTIONS. PATIENT WILL RECEIVE A REFILL OF THE PERCOCET, FENTANYL PATCH, LYRICA, SOMA, ROBAXIN, COLACE, TOPAMAX, KETOROLAC TODAY. PATIENT BROUGHT HIS MEDICATION BOTTLES TO TODAY'S VISIT. UTOX ORDERED ON 11-17-2016 SHOWS CONSISTENT RESULTS. PATIENT TO FOLLOW UP WITH ME IN 5 WEEKS. , INSTRUCTIONS WERE GIVEN, QUESTIONS WERE ANSWERED, PATIENT REPORTS UNDERSTANDING AND AGREES WITH THE PLAN. I, JOHN ZUNIGA, DOCUMENTED THE ABOVE INFORMATION ACTING A SCRIBE FOR DR. LEONARDO. I HAVE REVIEWED THE ABOVE DOCUMENT, WRITTEN BY JOHN ZUNIGA SCRIBE AND I VERIFY THAT IT IS ACCURATE. OTHERS CONTINUE FENTANYL PATCH 72 HOUR, 50 MCG/HR, 1 PATCH TO SKIN, TRANSDERMAL, 1 PATCH Q72H MDD 1 PATCH Q72H, 30 DAY(S), 10, REFILLS 0, NOTES: 10/24/16 ON REFILL LYRICA CAPSULE, 300 MG, 1 CAPSULE, ORALLY, TWICE A DAY FOR PAIN, 30 DAY(S), 60, REFILLS 0 REFILL SOMA TABLET, 350 MG, 1 TABLET NEEDED, ORALLY, 1 PER DAY, 30 DAY(S), 30, REFILLS 0 REFILL ROBAXIN-750 TABLET, 750 MG, 1 TABLET, ORALLY, EVERY 4 HRS PRN FOR SPASMS AND PAIN MDD3, 30 DAY(S), 90, REFILLS 1 REFILL COLACE CAPSULE, 100 MG, 1 CAPSULE NEEDED, ORALLY, ONCE A DAY, 30 DAY(S), 30, REFILLS 1 REFILL TOPAMAX TABLET, 100 MG, 1 TABLET, ORALLY FOR PAIN, TWICE A DAY, 30 DAY(S), 60, REFILLS 1 REFILL KETOROLAC TROMETHAMINE TABLET, 10 MG, 1 TABLET WITH FOOD OR MILK NEEDED, ORALLY, EVERY 6 HRS NEEDED FOR PAIN MDD3, 5 DAY(S), 15, REFILLS 0 PROCEDURES PN WORKMANS' COMP OPINION IN YOUR OPINION, WAS THE INCIDENT THAT THE PATIENT DESCRIBED THE COMPETENT MEDICAL CAUSE OF THIS INJURY/ILLNESS? YES ARE THE PATIENT'S COMPLAINTS CONSISTENT WITH HIS/HER HISTORY OF THE INJURY/ILLNESS? YES IS THE PATIENT'S HISTORY OF THE INJURY/ILLNESS CONSISTENT WITH YOUR OBJECTIVE FINDING? YES WHAT IS THE PERCENTAGE OF TEMPORARY IMPAIRMENT? TOTAL = 100% IS THE PATIENT WORKING? NO DOCTOR ON SITE: JAVON VALDEZ MD PROCEDURE CODES FA211 ESTABILISHED PATIENT [facility] FACILITY CHARGE G8730 PAIN ASSESS POS TOOL F/U PLAN DOC G8427 DOC MEDS VERIFIED W/PT OR RE DISPOSITION & COMMUNICATION FOLLOW UP 5 WEEKS ELECTRONICALLY SIGNED BY JAVON LEONARDO MD ON 12/30/2016 AT 08:58 PM EDT DISCLAIMER : THIS IS A VISIT SUMMARY EXTRACTED FROM THE [employer] CHART. IT IS NOT A COPY OF THE [employer] PROGRESS NOTE. NAHEED
== END ==
LOC: M PAIN 13:40
PROVIDERS: ATTEND Anesthesiology
DX: Z09 Encounter for follow-up examination after completed treatment for conditions other than malignant neoplasm (principal); G89.29 Other chronic pain; G43.719 Chronic migraine without aura, intractable, without status migrainosus; M79.1 Myalgia; M47.816 Spondylosis without myelopathy or radiculopathy, lumbar region; M47.817 Spondylosis without myelopathy or radiculopathy, lumbosacral region; M54.2 Cervicalgia; E11.9 Type 2 diabetes mellitus without complications; I10 Essential (primary) hypertension; E07.9 Disorder of thyroid, unspecified; K21.9 Gastro-esophageal reflux disease without esophagitis; G43.909 Migraine, unspecified, not intractable, without status migrainosus; Z88.1 Allergy status to other antibiotic agents; Z88.8 Allergy status to other drugs, medicaments and biological substances; Z79.84 Long term (current) use of oral hypoglycemic drugs; Z79.4 Long term (current) use of insulin; Z79.891 Long term (current) use of opiate analgesic; Z79.899 Other long term (current) drug therapy

== ENCOUNTER → 2017-01-04 | Outpatient (CLI) | payer OTHER ==
[~2017-01-04] MED LIST changes: +BUPIVACAINE HCL 0.25% 30 ML VIAL As Ordered ONE; +ISOVUE-M 300 61% 15ML VIAL (Q9967) As Ordered ONE; +LIDOCAINE 1% SDV INJ 30 ML VIAL As Ordered ONE; +MIDAZOLAM INJ 2 MG/2 ML VIAL (J2250) As Ordered ONE; +TRIAMCINOLONE ACETONIDE SUSP 40 MG/ML VIAL (J3301) As Ordered ONE; +fentaNYL 100 MCG/2 ML INJECTION (J3010) As Ordered ONE
--- NOTE | 2017-01-04 16:19 | REP ---
FACET BLOCK: The images were reviewed with Dr. Zee. The patient has a history of low back pain. The portable C-Arm was provided in the OR for Dr. Cota for fluoroscopic guidance. Four intraoperative spot films were obtained for needle placement verification for bilateral lumbar facet injection. The films are on the PACs system and are available for review. 36 seconds of fluoroscopy time was utilized for this procedure. Reviewed by DEON Lr 01/04/2017 04:29 PEdited and Signed by Sim Zee MD 01/05/2017 01:15 P
--- NOTE | 2017-01-10 02:33 | ECWPNPC ---
PATIENT NAME: ALEX JI : 1965 GENDER: MALE VISIT DATE: 01/04/2017 DISCHARGE DATE: 01/04/17 1322 VISIT LOCKED DATE TIME: PHYSICIAN: JAVON LEONARDO RESOURCE: JAVON LEONARDO REASON FOR APPOINTMENT 1. LFBT W/C HISTORY OF PRESENT ILLNESS HISTORY OF PRESENT ILLNESS: PAIN THE PATIENT DESCRIBES THE PAIN... FALL RISK SCREENING: SCREENING :NO FALLS IN THE PAST YEAR CURRENT MEDICATIONS TAKING PERCOCET 7.5-325 MG TABLET 1 ORALLY Q6H PRN MDD4, NOTES: 01-04-17599 TAKING FENTANYL 50 MCG/HR PATCH 72 HOUR 1 PATCH TO SKIN TRANSDERMAL 1 PATCH Q72H MDD 1 PATCH Q72H, NOTES: 01-03-17 ON TAKING LYRICA 300 MG CAPSULE 1 CAPSULE ORALLY TWICE A DAY FOR PAIN, NOTES: 01-04-17599 TAKING SOMA 350 MG TABLET 1 TABLET NEEDED ORALLY 1 PER DAY, NOTES: 01-03-172199 TAKING ROBAXIN-750 750 MG TABLET 1 TABLET ORALLY EVERY 4 HRS PRN FOR SPASMS AND PAIN MDD3, NOTES: 01-04-17599 TAKING COLACE 100 MG CAPSULE 1 CAPSULE NEEDED ORALLY ONCE A DAY, NOTES: 01-03-172199 TAKING TOPAMAX 100 MG TABLET 1 TABLET ORALLY FOR PAIN TWICE A DAY, NOTES: 01-04-17599 TAKING KETOROLAC TROMETHAMINE 10 MG TABLET 1 TABLET WITH FOOD OR MILK NEEDED ORALLY EVERY 6 HRS NEEDED FOR PAIN MDD3, NOTES: WEEK AGO TAKING ATENOLOL 50 MG TABLET 1 TABLET ORALLY BID, NOTES: 01-03-172199 TAKING HYZAAR 100-25 MG TABLET 1 TABLET ORALLY ONCE A DAY, NOTES: 01-03-17 AM TAKING TRIAMTERENE-HCTZ 37.5-25 MG TABLET 1 TABLET IN THE MORNING ORALLY ONCE A DAY, NOTES: 01-04-17599 TAKING LEVOTHYROXINE SODIUM 50 MCG TABLET 1 TABLET ORALLY ONCE A DAY, NOTES: 01-03-17 08 TAKING PINDOLOL 5 MG TABLET 1 TABLET ORALLY QID, NOTES: 01-04-17599 TAKING POTASSIUM CHLORIDE 10 MEQ (PRT) TABLET EXTENDED RELEASE 1 TABLET ORALLY ONCE A DAY, NOTES: 01-04-17599 TAKING METFORMIN HCL ER 750 MG TABLET EXTENDED RELEASE 24 HOUR ORALLY TWICE A DAY, NOTES: 01-03-172199 TAKING TOUJEO SOLOSTAR 300 UNIT/ML SOLUTION PEN-INJECTOR 10 UNITS SUBCUTANEOUS EVERY A M, NOTES: 01-03-17 0600 TAKING AMITRIPTYLINE HCL 50 MG TABLET 3 ORALLY ONCE A DAY, NOTES: 01-03-172199 NOT-TAKING FLONASE 50 MCG/ACT SUSPENSION 1 SPRAY IN EACH NOSTRIL NASALLY ONCE A DAY DISCONTINUED AMITRIPTYLINE HCL 50 MG TABLET 1 TABLET ORALLY THREE TIMES DAILY MEDICATION LIST REVIEWED AND RECONCILED WITH THE PATIENT PAST MEDICAL HISTORY DM, HTN, CHRONIC PAIN , THYROID DISEASE, GERD, MIGRANES ALLERGIES AZITHROMYCIN: LIP SWELLING: ALLERGY SUMATRIPTAN: FACIAL SWELLING: ALLERGY PROPOXYPHENE: PRICKLY FEELING, RASH, SOB: ALLERGY REVIEW OF SYSTEMS CONSTITUTIONAL: ANY CHANGE IN YOUR MEDICAL CONDITION? NO . CHILLS NO . FEVER NO . INFECTION: DO YOU HAVE NEW INFECTIONS? NO . DO YOU HAVE HISTORY OF MRSA? NO . MUSCULOSKELETAL: ANY NEW PATTERNS OF PAIN OR NUMBNESS? NO . GASTROENTEROLOGY: ANY NEW CHANGE IN BOWEL CONTROL? NO . GENITOURINARY: ANY NEW CHANGE IN BLADDER CONTROL? NO . IS THERE A CHANCE YOU COULD BE ? NO . HEMATOLOGY/LYMPH: DO YOU TAKE ANY BLOOD THINNERS? (FOR EXAMPLE- COUMADIN, PLAVIX, AGGRENOX, PLATEL, PRADAXA, OR XARELTO) NO . WHEN WAS YOUR LAST DOSE? DATE: TIME: . NEUROLOGY: HAVE YOU FALLEN IN THE PAST 6 MONTHS? YES . ANY NEW EXTREMITY NUMBNESS OR WEAKNESS? NO . CARDIOLOGY: DO YOU HAVE A PACEMAKER OR DEFIBRILLATOR? NO . RESPIRATORY: HAVE YOU BEEN SICK IN THE PAST WEEK? NO . FEVER NO . FLU LIKE SYMPTOMS? NO . COUGH NO . INTEGUMENTARY: DO YOU HAVE ANY RASHES OR OPEN SORES? NO . ALLERGIC/IMMUNO: ARE YOU ALLERGIC TO SHELLFISH OR IV DYE? NO . ANY NEW ALLERGIES? NO . PSYCHIATRIC: DO YOU HAVE THOUGHTS OF HURTING YOURSELF OR SOMEONE ELSE? NO . ARE YOU ABUSED, NEGLECTED, OR IN AN UNSAFE ENVIRONMENT? NO . ENDOCRINOLOGY: ARE YOU DIABETIC? YES, FSBS= 101 . OTHER: DO YOU NEED ANY PRESCRIPTIONS? NO . IF YES, PLEASE LIST: ____ . ANY NEW PROBLEMS WITH YOUR MEDICATIONS? NO . WHEN DID YOU LAST EAT? 3-22-17 2200 . WHEN DID YOU LAST DRINK? 01-04-17 0600 . WHAT DID YOU LAST DRINK? WATER . NAME OF PERSON DRIVING YOU HOME? [place] . DO YOU HAVE ANY OTHER QUESTIONS OR CONCERNS YES, PATIENT STATES THAT INSURANCE WON'T LET HIM HAVE BOTOX FOR NOW, SO IS WONDERING IF THE TPI WERE SCHEDULED? &NBSP;. REVIEWED BY: PROVIDER: . VITAL SIGNS WT 330 LBS, HT 75 IN, BMI 41.24 INDEX, BP 136/76 MM HG, HR 76 /MIN, RR 18 /MIN, TEMP 96.7 F, OXYGEN SAT % 95%, NA INITIALS SC10:45, REVIEWED BY: CM. ASSESSMENTS SPONDYLOSIS WITHOUT MYELOPATHY OR RADICULOPATHY, LUMBAR REGION - M47.816 (PRIMARY) SPONDYLOSIS WITHOUT MYELOPATHY OR RADICULOPATHY, LUMBOSACRAL REGION - M47.817 PROCEDURES PN LUMBAR FACET BLOCK THERAPEUTIC PRE PROCEDURE DIAGNOSIS : LUMBAR SPONDYLOSIS, LUMBOSACRAL SPONDYLOSIS POST PROCEDURE DIAGNOSIS : LUMBAR SPONDYLOSIS, LUMBOSACRAL SPONDYLOSIS PROCEDURE BILATERAL L4-L5 AND BILATERAL L5-S1 FACET THERAPEUTIC BLOCK SURGEON DR. JAVON LEONARDO MARBLE [place] NONE ANESTHESIA LOCAL WITH IV SEDATION PRE PROCEDURE NOTE THE PATIENT HAS A HISTORY OF CHRONIC LOW BACK PAIN. I EVALUATED THE PATIENT AND REVIEWED THE CHART. PATIENT HAS HISTORY OF TREMORS AND TONIC ACTIVITY, I DISCUSSED IT WITH THE PATIENT. I WILL PROCEED WITH IV SEDATION. I WENT OVER THE RISKS, ALTERNATIVES, AND BENEFITS ASSOCIATED WITH THIS PROCEDURE. THE PATIENT WOULD LIKE TO PROCEED AND GIVE CONSENT TO PERFORMED THE PROCEDURE WITH IV SEDATION.. THE PATIENT DENIES UNEXPLAINABLE WEIGHT LOSS, FEVER, CHILLS, OR NEW CHANGES IN URINARY OR BOWEL CONTROL DESCRIPTION OF PROCEDURE THE PATIENT WAS BROUGHT TO THE PROCEDURE ROOM AND PLACED IN THE PRONE POSITION. THE LUMBOSACRAL AREA WAS CLEANED WITH CHLORAPREP SOLUTION AND DRAPED ASEPTICALLY. THE PROCEDURE WAS DONE UNDER STERILE CONDITIONS. I CHECKED LATERALITY AND THE LEVEL WHERE THE PROCEDURE WAS GOING TO BE PERFORMED WITH THE PATIENT AND THE SUPPORTING STAFF AT THE MOMENT OF THE TIME OUT IN THE PROCEDURE ROOM. UNDER FLUOROSCOPIC GUIDANCE, THE TARGET POINT WAS SELECTED AT THE RIGHT AND LEFT L4-L5 AND RIGHT AND LEFT L5-S1 FACET JOINT. TARGET POINT WAS SELECTED AFTER LATERAL ROTATION AND TILT OF THE MAGNIFIER OF THE C-ARM. LIDOCAINE 0.5% WAS USED TO NUMB THE SKIN AND THE SUBCUTANEOUS TISSUE BELOW IT. SPINAL NEEDLES, 22-GAUGE, WERE ADVANCED UNDER FLUOROSCOPIC GUIDANCE AND FOLLOWING PATIENT FEEDBACK UNTIL THE TARGETS WERE TOUCHED. THE POSITION OF THE NEEDLES WAS VERIFIED WITH AP AND LATERAL VIEWS. AFTER PROPER POSITION OF THE NEEDLES WAS ACHIEVED, ISOVUE-M DYE 30% 0.1 ML WAS INJECTED SHOWING ADEQUATE SPREAD OF THE DYE. THEN A SOLUTION OF 1.9 ML OF BUPIVACAINE 0.125% OF KENALOG 10 MG WAS INJECTED AT EACH SITE. PATIENT RECEIVED VERSED 2 MG AND FENTANYL 100 MCG IV DIVIDED DOSES. FACE TO FACE TIME WAS 15 MINUTES. THERE WAS NO EVIDENCE OF BLOOD, PARESTHESIA OR CEREBROSPINAL FLUID DURING THE PROCEDURE. THE PATIENT WAS SENT TO THE RECOVERY ROOM. THE PATIENT WAS MOVING THE EXTREMITIES AND DOING WELL. THERE WAS NO COMPLICATION DURING THE PROCEDURE. FLUOROSCOPY TIME WAS 39 SECONDS POST PROCEDURE NOTE THE PATIENT WILL BE SEEN IN A FOLLOW UP IN THE NEXT FEW WEEKS. INSTRUCTIONS WERE GIVEN, QUESTIONS WERE ANSWERED, AND THE PATIENT EXPRESSED UNDERSTANDING AND AGREES WITH THE PLAN. INSTRUCTIONS WERE GIVEN, QUESTIONS WERE ANSWERED, PATIENT REPORTS UNDERSTANDING AND AGREES WITH THE PLAN. I, JOHN ZUNIGA, DOCUMENTED THE ABOVE INFORMATION ACTING A SCRIBE FOR DR. LEONARDO. I HAVE REVIEWED THE ABOVE DOCUMENT, WRITTEN BY JOHN ZUNIGA SCRIBE AND I VERIFY THAT IT IS ACCURATE DIAGNOSTIC IMAGING [facility] FACET BLOCK (PAIN)[id number] PROCEDURE CODES 93523 INJ PARAVERT F JNT L/S 1 LEV 36949 INJ PARAVERT F JNT L/S 2 LEV 6045F RADXPS IN END [id number] PXD 63587 MOD SED SAME PHYS/QHP 5/>YRS DISPOSITION & COMMUNICATION FOLLOW UP 3 WEEKS ELECTRONICALLY SIGNED BY JAVON LEONARDO MD ON 01/08/2017 AT 05:15 PM EDT DISCLAIMER : THIS IS A VISIT SUMMARY EXTRACTED FROM THE [employer] CHART. IT IS NOT A COPY OF THE [employer] PROGRESS NOTE. MTDD
== END ==
LOC: M PAIN 10:20
PROVIDERS: ATTEND Anesthesiology
DX: G89.29 Other chronic pain (principal); M47.816 Spondylosis without myelopathy or radiculopathy, lumbar region; M47.817 Spondylosis without myelopathy or radiculopathy, lumbosacral region; M54.5 Low back pain; Z79.891 Long term (current) use of opiate analgesic; Z79.899 Other long term (current) drug therapy; Z79.84 Long term (current) use of oral hypoglycemic drugs; Z79.4 Long term (current) use of insulin; E11.9 Type 2 diabetes mellitus without complications; I10 Essential (primary) hypertension; E03.9 Hypothyroidism, unspecified; K21.9 Gastro-esophageal reflux disease without esophagitis; G43.909 Migraine, unspecified, not intractable, without status migrainosus; Z88.0 Allergy status to penicillin; Z88.8 Allergy status to other drugs, medicaments and biological substances
CPT/HCPCS: 64493; 64494; 99152; J2250; J3010; J3301; Q9967

== ENCOUNTER → 2017-01-23 | Outpatient (CLI) | payer OTHER ==
[~2017-01-23] MED LIST changes: -BUPIVACAINE HCL 0.25% 30 ML VIAL As Ordered ONE; -ISOVUE-M 300 61% 15ML VIAL (Q9967) As Ordered ONE; -LIDOCAINE 1% SDV INJ 30 ML VIAL As Ordered ONE; -MIDAZOLAM INJ 2 MG/2 ML VIAL (J2250) As Ordered ONE; -TRIAMCINOLONE ACETONIDE SUSP 40 MG/ML VIAL (J3301) As Ordered ONE; -fentaNYL 100 MCG/2 ML INJECTION (J3010) As Ordered ONE
--- NOTE | 2017-02-05 00:30 | ECWPNPC ---
PATIENT NAME: ALEX JI : 1965 GENDER: MALE VISIT DATE: 01/23/2017 DISCHARGE DATE: 01/23/17 1607 VISIT LOCKED DATE TIME: PHYSICIAN: JAVON LEONARDO RESOURCE: JAVON LEONARDO REASON FOR APPOINTMENT 1. W/C BACK, NECK, AND HEAD PAIN HISTORY OF PRESENT ILLNESS HISTORY OF PRESENT ILLNESS: PAIN THE PATIENT DESCRIBES THE PAIN... 51 YEAR OLD MALE PATIENT WITH HISTORY OF CHRONIC NECK, BACK, AND HEAD PAIN. PATIENT DESCRIBES THE PAIN TENDER, THROBBING, SORE, SHOOTING, IT COMES AND GOES, AND HAVING IT ALL THE TIME WITH A PAIN SCORE OF 8/10 ON TODAY'S VISIT. 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 MR. JI IS CURRENTLY USING FENTANYL PATCH, PERCOCET, LYRICA, SOMA, TOPAMAX, TRAMADOL, AND ROBAXIN AND STATES THAT THESE MEDICATIONS KEEP HIM MOBILE AND FUNCTIONAL. PATIENT REPORTS THAT HE HAS DIFFICULTIES SLEEPING. PATIENT DENIES UNEXPLAINABLE WEIGHT LOSS, FEVER, CHILLS, NEW CHANGES ON HIS URINARY OR BOWEL CONTROL. FALL RISK SCREENING: SCREENING :NO FALLS IN THE PAST YEAR CURRENT MEDICATIONS TAKING PERCOCET 7.5-325 MG TABLET 1 ORALLY Q6H PRN MDD4 TAKING FENTANYL 50 MCG/HR PATCH 72 HOUR 1 PATCH TO SKIN TRANSDERMAL 1 PATCH Q72H MDD 1 PATCH Q72H TAKING LYRICA 300 MG CAPSULE 1 CAPSULE ORALLY TWICE A DAY FOR PAIN TAKING SOMA 350 MG TABLET 1 TABLET NEEDED ORALLY 1 PER DAY TAKING ROBAXIN-750 750 MG TABLET 1 TABLET ORALLY EVERY 4 HRS PRN FOR SPASMS AND PAIN MDD3 TAKING COLACE 100 MG CAPSULE 1 CAPSULE NEEDED ORALLY ONCE A DAY TAKING TOPAMAX 100 MG TABLET 1 TABLET ORALLY FOR PAIN TWICE A DAY TAKING KETOROLAC TROMETHAMINE 10 MG TABLET 1 TABLET WITH FOOD OR MILK NEEDED ORALLY EVERY 6 HRS NEEDED FOR PAIN MDD3 TAKING ATENOLOL 50 MG TABLET 1 TABLET ORALLY BID TAKING HYZAAR 100-25 MG TABLET 1 TABLET ORALLY ONCE A DAY TAKING TRIAMTERENE-HCTZ 37.5-25 MG TABLET 1 TABLET IN THE MORNING ORALLY ONCE A DAY TAKING LEVOTHYROXINE SODIUM 50 MCG TABLET 1 TABLET ORALLY ONCE A DAY TAKING PINDOLOL 5 MG TABLET 1 TABLET ORALLY QID TAKING POTASSIUM CHLORIDE 10 MEQ (PRT) TABLET EXTENDED RELEASE 1 TABLET ORALLY ONCE A DAY TAKING METFORMIN HCL ER 750 MG TABLET EXTENDED RELEASE 24 HOUR ORALLY TWICE A DAY TAKING TOUJEO SOLOSTAR 300 UNIT/ML SOLUTION PEN-INJECTOR 10 UNITS SUBCUTANEOUS EVERY A M TAKING AMITRIPTYLINE HCL 50 MG TABLET 3 ORALLY ONCE A DAY NOT-TAKING FLONASE 50 MCG/ACT SUSPENSION 1 SPRAY IN EACH NOSTRIL NASALLY ONCE A DAY MEDICATION LIST REVIEWED AND RECONCILED WITH THE PATIENT PAST MEDICAL HISTORY DM, HTN, CHRONIC PAIN , THYROID DISEASE, GERD, MIGRANES ALLERGIES AZITHROMYCIN: LIP SWELLING: ALLERGY SUMATRIPTAN: FACIAL SWELLING: ALLERGY PROPOXYPHENE: PRICKLY FEELING, RASH, SOB: ALLERGY SURGICAL HISTORY FUSION C3-C4 1994 3 SURGURIES TO LEFT KNEE 1993 FAMILY HISTORY NO FAMILY HISTORY DOCUMENTED. SOCIAL HISTORY GENERAL: PAIN CLINIC PFS, CLERGY, PUBLIC HEALTH REFERRALS CLERGY REFERRAL NEEDED?NO WAS THE PROVIDER NOTIFIED OF ANY PERTINENT INFO?NO PFS REFERRAL NEEDED?NO PUBLIC HEALTH REFERRAL NEEDED?NO PATIENT: ____. HOSPITALIZATION/MAJOR DIAGNOSTIC PROCEDURE SURGERIES HYPERTENSION HEAD INJURY 03/1986 REVIEW OF SYSTEMS CONSTITUTIONAL: ANY CHANGE IN YOUR MEDICAL CONDITION? NO . CHILLS NO . FEVER NO . INFECTION: DO YOU HAVE NEW INFECTIONS? NO . DO YOU HAVE HISTORY OF MRSA? NO . MUSCULOSKELETAL: ANY NEW PATTERNS OF PAIN OR NUMBNESS? NUMBNESS OR BURNING DOWN RIGHT LEG AND FOOT. WHEN FOOT IS NUMB HE TENDS TO DRAG IT. INCREASED NUMBNESS LEFT CALF WITH NEW NUMBNESS LEFT BABY TOE . GASTROENTEROLOGY: ANY NEW CHANGE IN BOWEL CONTROL? NO . GENITOURINARY: ANY NEW CHANGE IN BLADDER CONTROL? NO . IS THERE A CHANCE YOU COULD BE ? NO . HEMATOLOGY/LYMPH: DO YOU TAKE ANY BLOOD THINNERS? (FOR EXAMPLE- COUMADIN, PLAVIX, AGGRENOX, PLATEL, PRADAXA, OR XARELTO) NO . WHEN WAS YOUR LAST DOSE? DATE: TIME: . NEUROLOGY: HAVE YOU FALLEN IN THE PAST 6 MONTHS? YES, FELL THIS A.M.--LEGS JUST GAVE OUT. RIGHT ANKLE SEEMS TO BE SWOLLEN NOW . ANY NEW EXTREMITY NUMBNESS OR WEAKNESS? YES, LEFT CALF AND LEFT BABY TOE, NUMBNESS RIGHT FOOT . CARDIOLOGY: DO YOU HAVE A PACEMAKER OR DEFIBRILLATOR? NO . RESPIRATORY: HAVE YOU BEEN SICK IN THE PAST WEEK? NO . FEVER NO . FLU LIKE SYMPTOMS? NO . COUGH NO . INTEGUMENTARY: DO YOU HAVE ANY RASHES OR OPEN SORES? NO . ALLERGIC/IMMUNO: ARE YOU ALLERGIC TO SHELLFISH OR IV DYE? NO . ANY NEW ALLERGIES? NO . PSYCHIATRIC: DO YOU HAVE THOUGHTS OF HURTING YOURSELF OR SOMEONE ELSE? NO . ARE YOU ABUSED, NEGLECTED, OR IN AN UNSAFE ENVIRONMENT? NO . ENDOCRINOLOGY: ARE YOU DIABETIC? YES, FSBS THIS A.M WAS 101 . OTHER: DO YOU NEED ANY PRESCRIPTIONS? YES . IF YES, PLEASE LIST: ____FENTANYL,OXYCODONE, SOMA, ROBAXIN,LYRICA,TOPIRAMATE . ANY NEW PROBLEMS WITH YOUR MEDICATIONS? NO . WHEN DID YOU LAST EAT? ____ . WHEN DID YOU LAST DRINK? ____ . WHAT DID YOU LAST DRINK? ____ . NAME OF PERSON DRIVING YOU HOME? ____ . DO YOU HAVE ANY OTHER QUESTIONS OR CONCERNS WONDERING ABOUT HIS TPI . REVIEWED BY: PROVIDER: JAVON LEONARDO MD . VITAL SIGNS WT 330 LBS, HT 75 IN, BMI 41.24 INDEX, BP 134/77 MM HG, HR 79 /MIN, RR 18 /MIN, TEMP 96.1 F, OXYGEN SAT % 96%, NA INITIALS SC14:[id number], REVIEWED BY: AD. EXAMINATION : PATIENT IS ALERT O X 3 AND COOPERATIVE. PATIENT HAS DIFFICULTIES STANDING UP FOR THE EXAMINATION. PATIENT AMBULATES WITH SMALL STEPS AND WITH A CANE ON THE RIGHT HAND. PATIENT HAS A SMALL GAIT AND BALANCE ISSUES. THERE IS TENDERNESS IN THE CERVICAL PARASPINAL MUSCLE GROUP WITH BANDS OF TISSUES, RESTRICTION OF MOVEMENT, AND PRESENCE OF TRIGGER POINTS. AUTONOMIC DYSREFLEXIA WHEN I EXAMINED THE NECK. PATIENT IS ABLE TO ROTATE THE HIS NECK TO THE LEFT AT 5 DEGREES AND TO THE RIGHT AT 15 DEGREES. PATIENT IS ABLE TO EXTEND HIS NECK AT 30 DEGREES AND FLEX AT 5 DEGREES WITH DIFFICULTIES. THERE IS TENDERNESS IN THE LUMBAR PARASPINAL MUSCLE GROUP WITH BANDS OF TISSUES, RESTRICTION OF MOVEMENT, AND PRESENCE OF TRIGGER POINTS. ASSESSMENTS MYALGIA - M79.1 (PRIMARY) LOW BACK PAIN - M54.5 TREATMENT MYALGIA NOTES: WE DISCUSSED SEVERAL ISSUES WITH MR. JI PAIN MANAGEMENT CASE. AT THIS TIME THE PATIENT WILL CONTINUE WITH THE SAME MEDICATION REGIME BEFORE. PATIENT IS USING PERCOCET, FENTANYL PATCH AND KETOROLAC FOR THE SOMATIC PAIN, SOMA AND ROBAXIN FOR THE MUSCLE SPASMS AND SPASTICITY, AMITRIPTYLINE AND LYRICA FOR THE NEUROPATHIC PAIN, TOPAMAX FOR THE HEADACHES, AND COLACE FOR THE CONSTIPATION FROM THE OPIOIDS. PATIENT STATES THAT THE MEDICATION KEEPS HIM MOBILE AND FUNCTIONAL AND WITHOUT THE MEDICATION HE STATES HE WOULD NOT BE ABLE TO FUNCTION ENOUGH TO EVEN GET OUT OF BED. PATIENT DENIES ABUSE OF ANY MEDICATION, DENIES USE OF ILLEGAL SUBSTANCES, AND STATES THAT HE IS ONLY USING THE MEDICATION FOR PAIN MANAGEMENT. PATIENT URINE TOXICOLOGY REPORT DONE ON 11/17/16 SHOWS CONSISTENT RESULTS WITH THE PATIENTS MEDICATION LIST. PATIENT BROUGHT MEDICATIONS TO THE VISIT IN THEIR ORIGINAL BOTTLES. AT THIS TIME JUST TO THE SPASTICITY AND TIGHTNESS I WOULD LIKE TO MOVE FORWARD WITH TRIGGER POINT INJECTION. WE DISCUSSED THE RISKS, BENEFITS, AND ALTNERATIVES OF THE INJECTION AND THE PATIENT WOULD LIKE TO PROCEED AT THIS TIME. I WOULD ALSO LIKE THE PATIENT TO RECEIVE A CT OF THE LUMBAR AREA THE PATIENT HAS NOT HAD ONE AND HAS A PATTERN OF PAIN AND NUMBNESS. INSTRUCTIONS WERE GIVEN, QUESTIONS WERE ANSWERED, PATIENT REPORTS UNDERSTANDING AND AGREES WITH THE PLAN. I, ADELAIDA SANDERS, DOCUMENTED THE ABOVE INFORMATION ACTING A SCRIBE FOR DR. LEONARDO. I HAVE REVIEWED THE ABOVE DOCUMENT, WRITTEN BY ADELAIDA CRISTOBAL AND I VERIFY THAT IT IS ACCURATE. OTHERS REFILL PERCOCET TABLET, 7.5-325 MG, 1, ORALLY (CODE D FOR CHRONIC PAIN ), Q6H PRN MDD4, 60 DAYS, 200, REFILLS 0 REFILL AMITRIPTYLINE HCL TABLET, 50 MG, 3, ORALLY FOR PAIN, ONCE A DAY, 30 DAY(S), 90, REFILLS 2 REFILL FENTANYL PATCH 72 HOUR, 50 MCG/HR, 1 PATCH TO SKIN, TRANSDERMAL (CODE D FOR CHRONIC PAIN), 1 PATCH Q72 HRS, 60 DAYS, 20, REFILLS 0 REFILL LYRICA CAPSULE, 300 MG, 1 CAPSULE, ORALLY (CODE D FOR CHRONIC PAIN ), TWICE A DAY FOR PAIN, 60 DAYS, 120, REFILLS 0 REFILL SOMA TABLET, 350 MG, 1 TABLET NEEDED, ORALLY ( CHRONIC PAIN CODE D), 1 PER DAY NEEDED FOR SPASMS AND PAIN, 60 DAYS, 60, REFILLS 0 REFILL ROBAXIN-750 TABLET, 750 MG, 1 TABLET, ORALLY, EVERY 4 HRS PRN FOR SPASMS AND PAIN MDD3, 30 DAY(S), 90, REFILLS 2 REFILL COLACE CAPSULE, 100 MG, 1 CAPSULE NEEDED, ORALLY, ONCE A DAY, 30 DAY(S), 30, REFILLS 2 REFILL TOPAMAX TABLET, 100 MG, 1 TABLET, ORALLY FOR PAIN, TWICE A DAY, 30 DAY(S), 60, REFILLS 2 REFILL KETOROLAC TROMETHAMINE TABLET, 10 MG, 1 TABLET WITH FOOD OR MILK NEEDED, ORALLY, EVERY 6 HRS NEEDED FOR PAIN MDD3, 5 DAY(S), 15, REFILLS 1 PROCEDURES PN WORKMANS' COMP OPINION IN YOUR OPINION, WAS THE INCIDENT THAT THE PATIENT DESCRIBED THE COMPETENT MEDICAL CAUSE OF THIS INJURY/ILLNESS? YES ARE THE PATIENT'S COMPLAINTS CONSISTENT WITH HIS/HER HISTORY OF THE INJURY/ILLNESS? YES IS THE PATIENT'S HISTORY OF THE INJURY/ILLNESS CONSISTENT WITH YOUR OBJECTIVE FINDING? YES WHAT IS THE PERCENTAGE OF TEMPORARY IMPAIRMENT? TOTAL = 100% IS THE PATIENT WORKING? NO DOCTOR ON SITE: JAVON VALDEZ MD PROCEDURE CODES FA211 ESTABILISHED PATIENT [facility] FACILITY CHARGE G8427 DOC MEDS VERIFIED W/PT OR RE G8730 PAIN ASSESS POS TOOL F/U PLAN DOC DISPOSITION & COMMUNICATION FOLLOW UP TPI AFTER APPROVAL ELECTRONICALLY SIGNED BY JAVON LEONARDO MD ON 02/04/2017 AT 04:42 PM EDT DISCLAIMER : THIS IS A VISIT SUMMARY EXTRACTED FROM THE [employer] CHART. IT IS NOT A COPY OF THE [employer] PROGRESS NOTE. NAHEED
== END ==
LOC: M PAIN 14:00
PROVIDERS: ATTEND Anesthesiology
DX: M79.1 Myalgia (principal); M54.5 Low back pain; Z79.891 Long term (current) use of opiate analgesic; Z79.899 Other long term (current) drug therapy; Z79.84 Long term (current) use of oral hypoglycemic drugs; Z88.0 Allergy status to penicillin; Z88.8 Allergy status to other drugs, medicaments and biological substances; Z88.5 Allergy status to narcotic agent; E11.9 Type 2 diabetes mellitus without complications; I10 Essential (primary) hypertension; E03.9 Hypothyroidism, unspecified; K21.9 Gastro-esophageal reflux disease without esophagitis; G43.709 Chronic migraine without aura, not intractable, without status migrainosus

== ENCOUNTER → 2017-01-30 | Outpatient (CLI) | payer OTHER ==
[~2017-01-30] MED LIST changes: +BUPIVACAINE HCL 0.25% 10 ML VIAL As Ordered ONE; +BUPIVACAINE HCL 0.25% 30 ML VIAL As Ordered ONE; +TRIAMCINOLONE ACETONIDE SUSP 40 MG/ML VIAL (J3301) As Ordered ONE
--- NOTE | 2017-02-04 23:31 | ECWPNPC ---
PATIENT NAME: ALEX JI : 1965 GENDER: MALE VISIT DATE: 01/30/2017 DISCHARGE DATE: 01/30/17 0000 VISIT LOCKED DATE TIME: PHYSICIAN: JAVON LEONARDO RESOURCE: JAVON LEONARDO REASON FOR APPOINTMENT 1. TPI HISTORY OF PRESENT ILLNESS HISTORY OF PRESENT ILLNESS: PAIN THE PATIENT DESCRIBES THE PAIN... FALL RISK SCREENING: SCREENING :NO FALLS IN THE PAST YEAR CURRENT MEDICATIONS TAKING ATENOLOL 50 MG TABLET 1 TABLET ORALLY BID, NOTES: 629 TAKING HYZAAR 100-25 MG TABLET 1 TABLET ORALLY ONCE A DAY, NOTES: 629 TAKING TRIAMTERENE-HCTZ 37.5-25 MG TABLET 1 TABLET IN THE MORNING ORALLY ONCE A DAY, NOTES: 629 TAKING LEVOTHYROXINE SODIUM 50 MCG TABLET 1 TABLET ORALLY ONCE A DAY, NOTES: 629 TAKING PINDOLOL 5 MG TABLET 1 TABLET ORALLY QID, NOTES: 629 TAKING POTASSIUM CHLORIDE 10 MEQ (PRT) TABLET EXTENDED RELEASE 1 TABLET ORALLY ONCE A DAY, NOTES: 629 TAKING METFORMIN HCL ER 750 MG TABLET EXTENDED RELEASE 24 HOUR ORALLY TWICE A DAY, NOTES: 2199 TAKING TOUJEO SOLOSTAR 300 UNIT/ML SOLUTION PEN-INJECTOR 10 UNITS SUBCUTANEOUS EVERY A M, NOTES: 629 YESTERDAY TAKING PERCOCET 7.5-325 MG TABLET 1 ORALLY (CODE D FOR CHRONIC PAIN ) Q6H PRN MDD4, NOTES: 629 TAKING AMITRIPTYLINE HCL 50 MG TABLET 3 ORALLY FOR PAIN ONCE A DAY, NOTES: 2200 TAKING FENTANYL 50 MCG/HR PATCH 72 HOUR 1 PATCH TO SKIN TRANSDERMAL (CODE D FOR CHRONIC PAIN) 1 PATCH Q72 HRS, NOTES: YESTRERDAY 530PM TAKING LYRICA 300 MG CAPSULE 1 CAPSULE ORALLY (CODE D FOR CHRONIC PAIN ) TWICE A DAY FOR PAIN, NOTES: 0630 TAKING SOMA 350 MG TABLET 1 TABLET NEEDED ORALLY ( CHRONIC PAIN CODE D) 1 PER DAY NEEDED FOR SPASMS AND PAIN, NOTES: 2200 TAKING ROBAXIN-750 750 MG TABLET 1 TABLET ORALLY EVERY 4 HRS PRN FOR SPASMS AND PAIN MDD3, NOTES: 0630 TAKING COLACE 100 MG CAPSULE 1 CAPSULE NEEDED ORALLY ONCE A DAY, NOTES: 65280 TAKING TOPAMAX 100 MG TABLET 1 TABLET ORALLY FOR PAIN TWICE A DAY, NOTES: 629 TAKING KETOROLAC TROMETHAMINE 10 MG TABLET 1 TABLET WITH FOOD OR MILK NEEDED ORALLY EVERY 6 HRS NEEDED FOR PAIN MDD3, NOTES: SUNDAY TOOK 20MG NOT-TAKING FLONASE 50 MCG/ACT SUSPENSION 1 SPRAY IN EACH NOSTRIL NASALLY ONCE A DAY MEDICATION LIST REVIEWED AND RECONCILED WITH THE PATIENT PAST MEDICAL HISTORY DM, HTN, CHRONIC PAIN , THYROID DISEASE, GERD, MIGRANES ALLERGIES AZITHROMYCIN: LIP SWELLING: ALLERGY SUMATRIPTAN: FACIAL SWELLING: ALLERGY PROPOXYPHENE: PRICKLY FEELING, RASH, SOB: ALLERGY SOCIAL HISTORY GENERAL: PAIN CLINIC PFS, CLERGY, PUBLIC HEALTH REFERRALS CLERGY REFERRAL NEEDED?NO WAS THE PROVIDER NOTIFIED OF ANY PERTINENT INFO?NO PFS REFERRAL NEEDED?NO PUBLIC HEALTH REFERRAL NEEDED?NO PATIENT: ____. REVIEW OF SYSTEMS CONSTITUTIONAL: ANY CHANGE IN YOUR MEDICAL CONDITION? NO . CHILLS NO . FEVER NO . INFECTION: DO YOU HAVE NEW INFECTIONS? NO . DO YOU HAVE HISTORY OF MRSA? NO . MUSCULOSKELETAL: ANY NEW PATTERNS OF PAIN OR NUMBNESS? YES, DOWN RIGHT LEG AND INTO RIGHT FOOT. RIGHT FOOT NUMB AND WILL NOT WORK TO PUSH DOWN GAS PEDAL . GASTROENTEROLOGY: ANY NEW CHANGE IN BOWEL CONTROL? NO . GENITOURINARY: ANY NEW CHANGE IN BLADDER CONTROL? NO . IS THERE A CHANCE YOU COULD BE ? NO . HEMATOLOGY/LYMPH: DO YOU TAKE ANY BLOOD THINNERS? (FOR EXAMPLE- COUMADIN, PLAVIX, AGGRENOX, PLATEL, PRADAXA, OR XARELTO) NO . WHEN WAS YOUR LAST DOSE? DATE: TIME: . NEUROLOGY: HAVE YOU FALLEN IN THE PAST 6 MONTHS? YES, LEGS BUCKLE.FOOT DROP TO RIGHT FOOT . ANY NEW EXTREMITY NUMBNESS OR WEAKNESS? NO . CARDIOLOGY: DO YOU HAVE A PACEMAKER OR DEFIBRILLATOR? NO . RESPIRATORY: HAVE YOU BEEN SICK IN THE PAST WEEK? NO . FEVER NO . FLU LIKE SYMPTOMS? NO . COUGH NO . INTEGUMENTARY: DO YOU HAVE ANY RASHES OR OPEN SORES? NO . ALLERGIC/IMMUNO: ARE YOU ALLERGIC TO SHELLFISH OR IV DYE? NO . ANY NEW ALLERGIES? NO . PSYCHIATRIC: DO YOU HAVE THOUGHTS OF HURTING YOURSELF OR SOMEONE ELSE? NO . ARE YOU ABUSED, NEGLECTED, OR IN AN UNSAFE ENVIRONMENT? NO . ENDOCRINOLOGY: ARE YOU DIABETIC? YES, BLOOD SUGAR AT 0630 WAS 97 . OTHER: DO YOU NEED ANY PRESCRIPTIONS? NO . IF YES, PLEASE LIST: ____ . ANY NEW PROBLEMS WITH YOUR MEDICATIONS? NO . WHEN DID YOU LAST EAT? 0600 . WHEN DID YOU LAST DRINK? 0800 . WHAT DID YOU LAST DRINK? WATER . NAME OF PERSON DRIVING YOU HOME? ____ . DO YOU HAVE ANY OTHER QUESTIONS OR CONCERNS NO . REVIEWED BY: PROVIDER: . VITAL SIGNS WT 330 LBS, HT 75 IN, BMI 41.24 INDEX, BP 143/71 MM HG, HR 79 /MIN, RR 18 /MIN, TEMP 96.9 F, OXYGEN SAT % 97%, NA INITIALS [id number], REVIEWED BY: NL. ASSESSMENTS MYALGIA - M79.1 (PRIMARY) PROCEDURES PN TRIGGER POINT INJECTION WITH STEROIDS PRE PROCEDURE DIAGNOSIS 1. MYALGIA 2. PAIN AT BILATERAL NECK AREA, BILATERAL SHOULDER AREA, AND BILATERAL THORACIC AREA POST PROCEDURE DIAGNOSIS 1. MYALGIA 2. PAIN AT BILATERAL NECK AREA, BILATERAL SHOULDER AREA, AND BILATERAL THORACIC AREA PROCEDURE TRIGGER POINT INJECTION AT BILATERAL NECK AREA, BILATERAL SHOULDER AREA, AND THORACIC AREA SURGEON DR. JAVON LEONARDO BLADE WORKER NONE ANESTHESIA LOCAL PRE PROCEDURE NOTE THE PATIENT HAS A HISTORY OF CHRONIC PAIN AT THE RIGHT AND LEFT NECK AREA, RIGHT AND LEFT NECK AREA, AND RIGHT AND LEFT THORACIC AREA. I EVALUATE THE PATIENT AND REVIEWED THE CHART. THERE IS EVIDENCE OF BANDS OF TISSUE WITH RESTRICTION OF MOVEMENT AND PRESENCE OF TRIGGER POINT AT THE AFFECTED AREA. I WENT OVER THE RISKS, ALTERNATIVES, AND BENEFITS ASSOCIATED WITH THIS PROCEDURE. THE PATIENT WOULD LIKE TO PROCEED AND GIVE CONSENT TO PERFORMED THE PROCEDURE. THE PATIENT DENIES UNEXPLAINABLE WEIGHT LOSS, FEVER, CHILLS, OR NEW CHANGES IN URINARY OR BOWEL CONTROL DESCRIPTION OF PROCEDURE THE PATIENT WAS BROUGHT TO THE PROCEDURE ROOM AND PLACED IN THE SITTING POSITION. THE AREA WAS CLEANED WITH ALCOHOL. THE PROCEDURE WAS DONE USING ASEPTIC STERILE TECHNIQUE. I CHECKED LATERALITY AND THE LEVEL WHERE THE PROCEDURE WAS GOING TO BE PERFORMED WITH THE PATIENT AND THE SUPPORTING STAFF AT THE MOMENT OF THE TIME OUT IN THE PROCEDURE ROOM. USING A 25-GAUGE NEEDLE, TRIGGER POINTS WERE INJECTED AT THE RIGHT AND LEFT NECK AREA, RIGHT AND LEFT SHOULDER AREA, AND RIGHT AND LEFT THORACIC AREA WITH A TOTAL OF 40 ML OF BUPIVACAINE 0.25% AND KENALOG 40 MG. THERE WAS NO EVIDENCE OF BLOOD, PARESTHESIA OR CEREBROSPINAL FLUID DURING THE PROCEDURE. THE PATIENT WAS SENT TO THE RECOVERY ROOM. THE PATIENT WAS MOVING THE EXTREMITIES AND DOING WELL. THERE WAS NO COMPLICATION DURING THE PROCEDURE POST PROCEDURE NOTE THE PATIENT WILL BE SEEN IN A FOLLOW UP IN THE NEXT FEW WEEKS. INSTRUCTIONS WERE GIVEN, QUESTIONS WERE ANSWERED, AND THE PATIENT EXPRESSED UNDERSTANDING AND AGREES WITH THE PLAN. I, ADELAIDA SANDERS, DOCUMENTED THE ABOVE INFORMATION ACTING A SCRIBE FOR DR. LEONARDO. I, DR. LEONARDO, HAVE REVIEWED THE ABOVE DOCUMENT, SCRIBED BY ADELAIDA SANDERS, AND I VERIFY THAT IT IS ACCURATE PN WORKMANS' COMP OPINION IN YOUR OPINION, WAS THE INCIDENT THAT THE PATIENT DESCRIBED THE COMPETENT MEDICAL CAUSE OF THIS INJURY/ILLNESS? YES ARE THE PATIENT'S COMPLAINTS CONSISTENT WITH HIS/HER HISTORY OF THE INJURY/ILLNESS? YES IS THE PATIENT'S HISTORY OF THE INJURY/ILLNESS CONSISTENT WITH YOUR OBJECTIVE FINDING? YES WHAT IS THE PERCENTAGE OF TEMPORARY IMPAIRMENT? TOTAL = 100% IS THE PATIENT WORKING? NO DOCTOR ON SITE: JAVON VALDEZ MD PROCEDURE CODES 18756 INJECT TRIGGER POINTS 3/> DISPOSITION & COMMUNICATION FOLLOW UP 3 WEEKS ELECTRONICALLY SIGNED BY JAVON LEONARDO MD ON 02/04/2017 AT 04:55 PM EDT DISCLAIMER : THIS IS A VISIT SUMMARY EXTRACTED FROM THE [employer] CHART. IT IS NOT A COPY OF THE [employer] PROGRESS NOTE. NAHEED
== END ==
LOC: M PAIN 13:20
PROVIDERS: ATTEND Anesthesiology
DX: G89.29 Other chronic pain (principal); M79.1 Myalgia; E11.9 Type 2 diabetes mellitus without complications; I10 Essential (primary) hypertension; M21.371 Foot drop, right foot; K21.9 Gastro-esophageal reflux disease without esophagitis; G43.909 Migraine, unspecified, not intractable, without status migrainosus; E07.9 Disorder of thyroid, unspecified; Z79.84 Long term (current) use of oral hypoglycemic drugs; Z79.899 Other long term (current) drug therapy; Z79.891 Long term (current) use of opiate analgesic; Z88.1 Allergy status to other antibiotic agents; Z88.8 Allergy status to other drugs, medicaments and biological substances
CPT/HCPCS: 20553; J3301

== ENCOUNTER → 2017-03-07 | Outpatient (CLI) | payer OTHER ==
[~2017-03-07] MED LIST changes: -BUPIVACAINE HCL 0.25% 10 ML VIAL As Ordered ONE; -BUPIVACAINE HCL 0.25% 30 ML VIAL As Ordered ONE; -TRIAMCINOLONE ACETONIDE SUSP 40 MG/ML VIAL (J3301) As Ordered ONE
--- NOTE | 2017-03-21 02:59 | ECWPNPC ---
PATIENT NAME: ALEX JI : 1965 GENDER: MALE VISIT DATE: 03/07/2017 DISCHARGE DATE: 03/07/17 1741 VISIT LOCKED DATE TIME: PHYSICIAN: JAVON LEONARDO RESOURCE: JAVON LEONARDO REASON FOR APPOINTMENT 1. MEDS HISTORY OF PRESENT ILLNESS HISTORY OF PRESENT ILLNESS: PAIN THE PATIENT DESCRIBES THE PAIN... 51 YEAR OLD MALE PATIENT WITH HISTORY OF CHRONIC NECK, BACK, AND HEAD PAIN. PATIENT DESCRIBES THE PAIN TENDER, THROBBING, SORE, AND HAVING IT ALL THE TIME WITH A PAIN SCORE OF 8/10 ON TODAY'S VISIT. 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 PATIENT RECEIVED A TRIGGER POINT INJECTION IN THE BILATERAL NECK, SHOULDER, AND THORACIC AREA. PATIENT STATES THE INJECTION HELPED WITH REDUCING HIS PAIN WITH OVER 50 PERCENT OF PAIN RELIEF AND INCREASING HIS MOBILITY AND FUNCTIONALITY. PATIENT DOES REPORT THAT THE PAIN IS SLOWLY RETURNING. PATIENT STATES THAT HIS NECK HURTS THE MOST TODAY. PATIENT STATES THAT HEADACHES CONTINUE TO BOTHER HIM WORKERS' COMP IS NOT ALLOWING BOTOX INJECTIONS. PATIENT DENIES UNEXPLAINABLE WEIGHT LOSS, FEVER, CHILLS, NEW CHANGES ON HIS URINARY OR BOWEL CONTROL. FALL RISK SCREENING: SCREENING :NO FALLS IN THE PAST YEAR CURRENT MEDICATIONS TAKING ATENOLOL 50 MG TABLET 1 TABLET ORALLY BID TAKING HYZAAR 100-25 MG TABLET 1 TABLET ORALLY ONCE A DAY TAKING TRIAMTERENE-HCTZ 37.5-25 MG TABLET 1 TABLET IN THE MORNING ORALLY ONCE A DAY TAKING LEVOTHYROXINE SODIUM 50 MCG TABLET 1 TABLET ORALLY ONCE A DAY TAKING PINDOLOL 5 MG TABLET 1 TABLET ORALLY QID TAKING POTASSIUM CHLORIDE 10 MEQ (PRT) TABLET EXTENDED RELEASE 1 TABLET ORALLY ONCE A DAY TAKING METFORMIN HCL ER 750 MG TABLET EXTENDED RELEASE 24 HOUR ORALLY TWICE A DAY TAKING TOUJEO SOLOSTAR 300 UNIT/ML SOLUTION PEN-INJECTOR 10 UNITS SUBCUTANEOUS EVERY A M TAKING PERCOCET 7.5-325 MG TABLET 1 ORALLY (CODE D FOR CHRONIC PAIN ) Q6H PRN MDD4 TAKING AMITRIPTYLINE HCL 50 MG TABLET 3 ORALLY FOR PAIN ONCE A DAY, NOTES: 2 TAKING FENTANYL 50 MCG/HR PATCH 72 HOUR 1 PATCH TO SKIN TRANSDERMAL (CODE D FOR CHRONIC PAIN) 1 PATCH Q72 HRS, NOTES: YES TAKING LYRICA 300 MG CAPSULE 1 CAPSULE ORALLY (CODE D FOR CHRONIC PAIN ) TWICE A DAY FOR PAIN TAKING SOMA 350 MG TABLET 1 TABLET NEEDED ORALLY ( CHRONIC PAIN CODE D) 1 PER DAY NEEDED FOR SPASMS AND PAIN TAKING ROBAXIN-750 750 MG TABLET 1 TABLET ORALLY EVERY 4 HRS PRN FOR SPASMS AND PAIN MDD3 TAKING COLACE 100 MG CAPSULE 1 CAPSULE NEEDED ORALLY ONCE A DAY TAKING TOPAMAX 100 MG TABLET 1 TABLET ORALLY FOR PAIN TWICE A DAY TAKING KETOROLAC TROMETHAMINE 10 MG TABLET 1 TABLET WITH FOOD OR MILK NEEDED ORALLY EVERY 6 HRS NEEDED FOR PAIN MDD3 NOT-TAKING FLONASE 50 MCG/ACT SUSPENSION 1 SPRAY IN EACH NOSTRIL NASALLY ONCE A DAY MEDICATION LIST REVIEWED AND RECONCILED WITH THE PATIENT PAST MEDICAL HISTORY DM, HTN, CHRONIC PAIN , THYROID DISEASE, GERD, MIGRANES ALLERGIES AZITHROMYCIN: LIP SWELLING: ALLERGY SUMATRIPTAN: FACIAL SWELLING: ALLERGY PROPOXYPHENE: PRICKLY FEELING, RASH, SOB: ALLERGY SURGICAL HISTORY FUSION C3-C4 1994 3 SURGURIES TO LEFT KNEE 1993 FAMILY HISTORY NO FAMILY HISTORY DOCUMENTED. SOCIAL HISTORY GENERAL: PAIN CLINIC PFS, CLERGY, PUBLIC HEALTH REFERRALS CLERGY REFERRAL NEEDED?NO WAS THE PROVIDER NOTIFIED OF ANY PERTINENT INFO?NO PFS REFERRAL NEEDED?NO PUBLIC HEALTH REFERRAL NEEDED?NO PATIENT: ____. HOSPITALIZATION/MAJOR DIAGNOSTIC PROCEDURE SURGERIES HYPERTENSION HEAD INJURY 03/1986 REVIEW OF SYSTEMS CONSTITUTIONAL: ANY CHANGE IN YOUR MEDICAL CONDITION? NO . CHILLS NO . FEVER NO . INFECTION: DO YOU HAVE NEW INFECTIONS? NO . DO YOU HAVE HISTORY OF MRSA? NO . MUSCULOSKELETAL: ANY NEW PATTERNS OF PAIN OR NUMBNESS? NO . GASTROENTEROLOGY: ANY NEW CHANGE IN BOWEL CONTROL? NO . GENITOURINARY: ANY NEW CHANGE IN BLADDER CONTROL? NO . IS THERE A CHANCE YOU COULD BE ? NO . HEMATOLOGY/LYMPH: DO YOU TAKE ANY BLOOD THINNERS? (FOR EXAMPLE- COUMADIN, PLAVIX, AGGRENOX, PLATEL, PRADAXA, OR XARELTO) NO . WHEN WAS YOUR LAST DOSE? DATE: TIME: . NEUROLOGY: HAVE YOU FALLEN IN THE PAST 6 MONTHS? NO . ANY NEW EXTREMITY NUMBNESS OR WEAKNESS? NO . CARDIOLOGY: DO YOU HAVE A PACEMAKER OR DEFIBRILLATOR? NO . RESPIRATORY: HAVE YOU BEEN SICK IN THE PAST WEEK? NO . FEVER NO . FLU LIKE SYMPTOMS? NO . COUGH NO . INTEGUMENTARY: DO YOU HAVE ANY RASHES OR OPEN SORES? NO . ALLERGIC/IMMUNO: ARE YOU ALLERGIC TO SHELLFISH OR IV DYE? NO . ANY NEW ALLERGIES? NO . PSYCHIATRIC: DO YOU HAVE THOUGHTS OF HURTING YOURSELF OR SOMEONE ELSE? NO . ARE YOU ABUSED, NEGLECTED, OR IN AN UNSAFE ENVIRONMENT? NO . ENDOCRINOLOGY: ARE YOU DIABETIC? YES, FSBS= 100 . OTHER: DO YOU NEED ANY PRESCRIPTIONS? NO . IF YES, PLEASE LIST: ____ . ANY NEW PROBLEMS WITH YOUR MEDICATIONS? NO . WHEN DID YOU LAST EAT? ____ . WHEN DID YOU LAST DRINK? ____ . WHAT DID YOU LAST DRINK? ____ . NAME OF PERSON DRIVING YOU HOME? ____ . DO YOU HAVE ANY OTHER QUESTIONS OR CONCERNS NO . REVIEWED BY: PROVIDER: JAVON LEONARDO MD . VITAL SIGNS WT 330.0 LBS, HT 75 IN, BMI 41.24 INDEX, BP 118/69 MM HG, HR 77 /MIN, RR 16 /MIN, TEMP 97.4 F, OXYGEN SAT % 96%, NA INITIALS TL 1558, REVIEWED BY: CM. EXAMINATION : PATIENT IS ALERT O X 3 AND COOPERATIVE. THERE IS TENDERNESS IN THE CERVICAL PARASPINAL MUSCLE GROUP. CT OF THE CERVICAL SPINE DONE ON 07/30/2015 SHOWS FACET ARTHROPATHY AND A FUSION AT C3-C4. CT OF THE LUMBAR SPINE DONE ON DISC BULGES AND FACET ARTHROPATHY AT MULTIPLE LEVELS. ASSESSMENTS SPONDYLOSIS WITHOUT MYELOPATHY OR RADICULOPATHY, CERVICAL REGION - M47.812 (PRIMARY) TREATMENT SPONDYLOSIS WITHOUT MYELOPATHY OR RADICULOPATHY, CERVICAL REGION NOTES: WE DISCUSSED SEVERAL ISSUES WITH MR. JI PAIN MANAGEMENT CASE. AT THIS TIME THE PATIENT WILL CONTINUE WITH THE SAME MEDICATION REGIME BEFORE. PATIENT IS USING PERCOCET, FENTANYL PATCH AND KETOROLAC FOR THE SOMATIC PAIN, SOMA AND ROBAXIN FOR THE MUSCLE SPASMS AND SPASTICITY, AMITRIPTYLINE AND LYRICA FOR THE NEUROPATHIC PAIN, TOPAMAX FOR THE HEADACHES, AND COLACE FOR THE CONSTIPATION FROM THE OPIOIDS. PATIENT STATES THAT THE MEDICATION KEEPS HIM MOBILE AND FUNCTIONAL AND WITHOUT THE MEDICATION HE STATES HE WOULD NOT BE ABLE TO FUNCTION ENOUGH TO EVEN GET OUT OF BED. PATIENT DENIES ABUSE OF ANY MEDICATION, DENIES USE OF ILLEGAL SUBSTANCES, AND STATES THAT HE IS ONLY USING THE MEDICATION FOR PAIN MANAGEMENT. AFTER EXAMINING THE PATIENT AND REVIEWING THE MRI OF THE CERVICAL SPINE PATIENT IS A GOOD CANDIDATE FOR A BILATERAL CERVICAL FACET BLOCK THERAPEUTIC, DUE TO THE FUSION AT C3-C4 I WILL DO LEVELS C2-C3 AND C4-C5. WE DISCUSSED THE RISK, BENEFITS, AND ALTERNATIVES AND PATIENT WOULD LIKE TO PROCEED FORWARD. PATIENT WILL BE BOOKED PENDING APPROVAL. PATIENT URINE TOXICOLOGY REPORT DONE ON 11/17/16 SHOWS CONSISTENT RESULTS WITH THE PATIENTS MEDICATION LIST. PATIENT WILL FOLLOW UP WITH ME IN 6 WEEKS. INSTRUCTIONS WERE GIVEN, QUESTIONS WERE ANSWERED, PATIENT REPORTS UNDERSTANDING AND AGREES WITH THE PLAN. I, JOHN ZUNIGA, DOCUMENTED THE ABOVE INFORMATION ACTING A SCRIBE FOR DR. LEONARDO. I HAVE REVIEWED THE ABOVE DOCUMENT, WRITTEN BY JOHN ZUNIGA SCRIBE AND I VERIFY THAT IT IS ACCURATE. OTHERS REFILL PERCOCET TABLET, 7.5-325 MG, 1, ORALLY, Q6H PRN MDD4, 30 DAY(S), 100, REFILLS 0 REFILL AMITRIPTYLINE HCL TABLET, 50 MG, 3, ORALLY FOR PAIN, ONCE A DAY, 30 DAY(S), 90, REFILLS 2, NOTES: 2 REFILL FENTANYL PATCH 72 HOUR, 50 MCG/HR, 1 PATCH TO SKIN, TRANSDERMAL, 1 PATCH Q72 HRS, 30 DAYS, 10, REFILLS 0, NOTES: YES REFILL LYRICA CAPSULE, 300 MG, 1 CAPSULE, ORALLY, TWICE A DAY FOR PAIN, 30 DAY(S), 60, REFILLS 0 REFILL SOMA TABLET, 350 MG, 1 TABLET NEEDED, ORALLY, 1 PER DAY NEEDED FOR SPASMS AND PAIN, 30 DAY(S), 30, REFILLS 0 REFILL ROBAXIN-750 TABLET, 750 MG, 1 TABLET, ORALLY, EVERY 4 HRS PRN FOR SPASMS AND PAIN MDD3, 30 DAY(S), 90, REFILLS 2 REFILL COLACE CAPSULE, 100 MG, 1 CAPSULE NEEDED, ORALLY, ONCE A DAY, 30 DAY(S), 30, REFILLS 2 REFILL TOPAMAX TABLET, 100 MG, 1 TABLET, ORALLY FOR PAIN, TWICE A DAY, 30 DAY(S), 60, REFILLS 2 REFILL KETOROLAC TROMETHAMINE TABLET, 10 MG, 1 TABLET WITH FOOD OR MILK NEEDED, ORALLY, EVERY 6 HRS NEEDED FOR PAIN MDD3, 5 DAY(S), 15, REFILLS 1 PROCEDURES PN WORKMANS' COMP OPINION IN YOUR OPINION, WAS THE INCIDENT THAT THE PATIENT DESCRIBED THE COMPETENT MEDICAL CAUSE OF THIS INJURY/ILLNESS? YES ARE THE PATIENT'S COMPLAINTS CONSISTENT WITH HIS/HER HISTORY OF THE INJURY/ILLNESS? YES IS THE PATIENT'S HISTORY OF THE INJURY/ILLNESS CONSISTENT WITH YOUR OBJECTIVE FINDING? YES WHAT IS THE PERCENTAGE OF TEMPORARY IMPAIRMENT? TOTAL = 100% IS THE PATIENT WORKING? NO DOCTOR ON SITE: JAVON VALDEZ MD PROCEDURE CODES FA211 ESTABILISHED PATIENT [facility] FACILITY CHARGE G8730 PAIN ASSESS POS TOOL F/U PLAN DOC G8427 DOC MEDS VERIFIED W/PT OR RE DISPOSITION & COMMUNICATION FOLLOW UP 6 WEEKS ELECTRONICALLY SIGNED BY JAVON LEONARDO MD ON 03/20/2017 AT 06:20 PM EDT DISCLAIMER : THIS IS A VISIT SUMMARY EXTRACTED FROM THE [employer] CHART. IT IS NOT A COPY OF THE [employer] PROGRESS NOTE. NAHEED
== END ==
LOC: M PAIN 15:40
PROVIDERS: ATTEND Anesthesiology
DX: M47.812 Spondylosis without myelopathy or radiculopathy, cervical region (principal); G89.29 Other chronic pain; Z79.891 Long term (current) use of opiate analgesic; Z79.899 Other long term (current) drug therapy

== ENCOUNTER → 2017-05-14 | Outpatient (CLI) | payer OTHER ==
[~2017-05-14] MED LIST changes: +BUPIVACAINE HCL 0.25% 30 ML VIAL As Ordered ONE; +ISOVUE-M 300 61% 15ML VIAL (Q9967) As Ordered ONE; +LIDOCAINE 1% SDV INJ 30 ML VIAL As Ordered ONE; +MIDAZOLAM INJ 2 MG/2 ML VIAL (J2250) As Ordered ONE; +TRIAMCINOLONE ACETONIDE SUSP 40 MG/ML VIAL (J3301) As Ordered ONE; +fentaNYL 100 MCG/2 ML INJECTION (J3010) As Ordered ONE
--- NOTE | 2017-05-14 17:51 | REP ---
FACET BLOCK: The images were reviewed with Dr. Mendoza. The patient has a history of neck pain. The portable C-Arm was provided in the OR for Dr. Cota for fluoroscopic guidance. Four intraoperative spot films were obtained for needle placement verification for bilateral cervical facet injection. The films are on the PACs system and are available for review. 12 seconds of fluoroscopy time was utilized for this procedure. Reviewed by DEON Lr 05/15/2017 01:13 PEdited and Signed by Nelson Mendoza MD 05/15/2017 07:15 P
--- NOTE | 2017-05-29 00:52 | ECWPNPC ---
PATIENT NAME: ALEX JI : 1965 GENDER: MALE VISIT DATE: 05/14/2017 DISCHARGE DATE: 05/14/17 1417 VISIT LOCKED DATE TIME: PHYSICIAN: JAVON LEONARDO RESOURCE: JAVON LEONARDO REASON FOR APPOINTMENT 1. CFBT BILATERAL HISTORY OF PRESENT ILLNESS HISTORY OF PRESENT ILLNESS: PAIN THE PATIENT DESCRIBES THE PAIN... FALL RISK SCREENING: SCREENING :NO FALLS IN THE PAST YEAR CURRENT MEDICATIONS TAKING AMITRIPTYLINE HCL 50 MG TABLET 3 ORALLY FOR PAIN ONCE A DAY, NOTES: 05-13-172099 TAKING LYRICA 300 MG CAPSULE 1 CAPSULE ORALLY TWICE A DAY FOR PAIN, NOTES: 05-14-17599 TAKING SOMA 350 MG TABLET 1 TABLET NEEDED ORALLY 1 PER DAY NEEDED FOR SPASMS AND PAIN, NOTES: 05-13-172099 TAKING ROBAXIN-750 750 MG TABLET 1 TABLET ORALLY EVERY 4 HRS PRN FOR SPASMS AND PAIN MDD3, NOTES: 05-14-17999 TAKING COLACE 100 MG CAPSULE 1 CAPSULE NEEDED ORALLY ONCE A DAY, NOTES: 05-13-172099 TAKING TOPAMAX 100 MG TABLET 1 TABLET ORALLY FOR PAIN TWICE A DAY, NOTES: 05-14-17599 TAKING KETOROLAC TROMETHAMINE 10 MG TABLET 1 TABLET WITH FOOD OR MILK NEEDED ORALLY EVERY 6 HRS NEEDED FOR PAIN MDD3, NOTES: 05-12-171999 TAKING ATENOLOL 50 MG TABLET 1 TABLET ORALLY BID, NOTES: 05-14-17999 TAKING HYZAAR 100-25 MG TABLET 1 TABLET ORALLY ONCE A DAY, NOTES: 05-13-172099 TAKING TRIAMTERENE-HCTZ 37.5-25 MG TABLET 1 TABLET IN THE MORNING ORALLY ONCE A DAY, NOTES: 05-14-17599 TAKING LEVOTHYROXINE SODIUM 50 MCG TABLET 1 TABLET ORALLY ONCE A DAY, NOTES: 05-14-17999 TAKING PINDOLOL 5 MG TABLET 1 TABLET ORALLY QID, NOTES: 05-14-17599 TAKING POTASSIUM CHLORIDE 10 MEQ (PRT) TABLET EXTENDED RELEASE 1 TABLET ORALLY ONCE A DAY, NOTES: 05-14-17599 TAKING METFORMIN HCL ER 750 MG TABLET EXTENDED RELEASE 24 HOUR ORALLY TWICE A DAY, NOTES: 05-14-600 TAKING TOUJEO SOLOSTAR 300 UNIT/ML SOLUTION PEN-INJECTOR 10 UNITS SUBCUTANEOUS EVERY A M, NOTES: 05-13-17 0600 TAKING FENTANYL 50 MCG/HR PATCH 72 HOUR 1 PATCH TO SKIN TRANSDERMAL 1 PATCH Q72 HRS, NOTES: YES TAKING PERCOCET 7.5-325 MG TABLET 1 ORALLY Q6H PRN MDD4, NOTES: 05-14-17U NOT-TAKING FLONASE 50 MCG/ACT SUSPENSION 1 SPRAY IN EACH NOSTRIL NASALLY ONCE A DAY MEDICATION LIST REVIEWED AND RECONCILED WITH THE PATIENT PAST MEDICAL HISTORY DM, HTN, CHRONIC PAIN , THYROID DISEASE, GERD, MIGRANES ALLERGIES AZITHROMYCIN: LIP SWELLING: ALLERGY SUMATRIPTAN: FACIAL SWELLING: ALLERGY PROPOXYPHENE: PRICKLY FEELING, RASH, SOB: ALLERGY REVIEW OF SYSTEMS REVIEWED BY: PROVIDER: . CONSTITUTIONAL: ANY CHANGE IN YOUR MEDICAL CONDITION? NO . CHILLS NO . FEVER NO . INFECTION: DO YOU HAVE NEW INFECTIONS? NO . DO YOU HAVE HISTORY OF MRSA? NO . MUSCULOSKELETAL: ANY NEW PATTERNS OF PAIN OR NUMBNESS? NO . GASTROENTEROLOGY: ANY NEW CHANGE IN BOWEL CONTROL? NO . GENITOURINARY: ANY NEW CHANGE IN BLADDER CONTROL? NO . IS THERE A CHANCE YOU COULD BE ? NO . HEMATOLOGY/LYMPH: DO YOU TAKE ANY BLOOD THINNERS? (FOR EXAMPLE- COUMADIN, PLAVIX, AGGRENOX, PLATEL, PRADAXA, OR XARELTO) NO . WHEN WAS YOUR LAST DOSE? DATE: TIME: . NEUROLOGY: HAVE YOU FALLEN IN THE PAST 6 MONTHS? NO . ANY NEW EXTREMITY NUMBNESS OR WEAKNESS? NO . CARDIOLOGY: DO YOU HAVE A PACEMAKER OR DEFIBRILLATOR? NO . RESPIRATORY: HAVE YOU BEEN SICK IN THE PAST WEEK? NO . FEVER NO . FLU LIKE SYMPTOMS? NO . COUGH NO . INTEGUMENTARY: DO YOU HAVE ANY RASHES OR OPEN SORES? NO . ALLERGIC/IMMUNO: ARE YOU ALLERGIC TO SHELLFISH OR IV DYE? NO . ANY NEW ALLERGIES? NO . PSYCHIATRIC: DO YOU HAVE THOUGHTS OF HURTING YOURSELF OR SOMEONE ELSE? NO . ARE YOU ABUSED, NEGLECTED, OR IN AN UNSAFE ENVIRONMENT? NO . ENDOCRINOLOGY: ARE YOU DIABETIC? YES FINGER STICK THIS MORNING 103 . OTHER: DO YOU NEED ANY PRESCRIPTIONS? YES . IF YES, PLEASE LIST: ALL MEDICATIONS . ANY NEW PROBLEMS WITH YOUR MEDICATIONS? NO . WHEN DID YOU LAST EAT? 0600 . WHEN DID YOU LAST DRINK? 0600 . WHAT DID YOU LAST DRINK? WATER . NAME OF PERSON DRIVING YOU HOME? SPOUSE, SON . DO YOU HAVE ANY OTHER QUESTIONS OR CONCERNS YES, STATES BOTOX WAS APPROVED . VITAL SIGNS WT 330.0 LBS, HT 75 IN, BMI 41.24 INDEX, BP 158/79 MM HG, HR 82 /MIN, RR 18 /MIN, TEMP 96.5 F, OXYGEN SAT % 96%, NA INITIALS TL 1140, REVIEWED BY: LS. ASSESSMENTS SPONDYLOSIS WITHOUT MYELOPATHY OR RADICULOPATHY, CERVICAL REGION - M47.812 (PRIMARY) PROCEDURES PN CERVICAL FACET BLOCK LOW BILATERAL CERVICAL PRE PROCEDURE DIAGNOSIS CERVICAL SPONDYLOSIS POST PROCEDURE DIAGNOSIS CERVICAL SPONDYLOSIS PROCEDURE BILATERAL C3-C4 AND BILATERAL C4-C5 CERVICAL FACET BLOCK SURGEON DR. JAVON LEONARDO TENTER FEEDER NONE ANESTHESIA LOCAL WITH IV SEDATION PRE PROCEDURE NOTE THE PATIENT HAS HISTORY OF CHRONIC CERVICAL PAIN. I EVALUATE THE PATIENT AND REVIEWED THE CHART. I WENT OVER THE RISKS, ALTERNATIVES, AND BENEFITS ASSOCIATED WITH THIS PROCEDURE. PATIENT WOULD LIKE TO MOVE FORWARD WITH IV SEDATION DUE TO DISCOMFORT, PAIN AND ANXIETY ASSOCIATED WITH THE PROCEDURE. THE PATIENT WOULD LIKE TO PROCEED AND GIVE CONSENT TO PERFORMED THE PROCEDURE. THE PATIENT DENIES UNEXPLAINABLE WEIGHT LOSS, FEVER, CHILLS, OR NEW CHANGES IN URINARY OR BOWEL CONTROL. DESCRIPTION OF PROCEDURE THE PATIENT WAS BROUGHT TO THE PROCEDURE ROOM AND PLACED IN THE PRONE POSITION. THE CERVICOTHORACIC AREA WAS CLEANED WITH CHLORAPREP SOLUTION AND DRAPED ASEPTICALLY. THE PROCEDURE WAS DONE UNDER STERILE CONDITIONS. I CHECKED LATERALITY AND THE LEVEL WHERE THE PROCEDURE WAS GOING TO BE PERFORMED WITH THE PATIENT AND THE SUPPORTING STAFF AT THE MOMENT OF THE TIME OUT IN THE PROCEDURE ROOM. UNDER FLUOROSCOPIC GUIDANCE, TARGET POINT WAS SELECTED AT THE RIGHT AND LEFT C3-C4 AND RIGHT AND LEFT C4-C5 CERVICAL FACET JOINT. TARGET POINTS WERE SELECTED AFTER LATERAL ROTATION AND TILT OF THE MAGNIFIER OF THE C-ARM. LIDOCAINE 0.5% WAS USED TO NUMB THE SKIN AND THE SUBCUTANEOUS TISSUE BELOW IT. SPINAL NEEDLES, 22-GAUGE, WERE ADVANCED UNDER FLUOROSCOPIC GUIDANCE AND FOLLOWING PATIENT FEEDBACK UNTIL THE TARGETS WERE TOUCHED. THE POSITION OF THE NEEDLES WAS VERIFIED WITH AP AND LATERAL VIEWS. AFTER PROPER POSITION OF THE NEEDLES WAS ACHIEVED, ISOVUE M DYE 30, 0.1 ML WAS INJECTED SHOWING SPREAD OF THE DYE. THEN A SOLUTION OF 0.9 ML OF BUPIVACAINE 0.125% AND KENALOG 10 MG WAS INJECTED AT EACH SITE. PATIENT RECEIVED VERSED 4 MG AND FENTANYL 200 MCG IV DIVIDED DOSES THERE WAS NO EVIDENCE OF BLOOD, PARESTHESIA OR CEREBROSPINAL FLUID DURING THE PROCEDURE. THE PATIENT WAS SENT TO THE RECOVERY ROOM. THE PATIENT WAS MOVING THE EXTREMITIES AND DOING WELL. THERE WAS NO COMPLICATION DURING THE PROCEDURE. FLUOROSCOPY TIME WAS 12 SECONDS. FACE TO FACE TIME WAS 20 MINUTES POST PROCEDURE NOTE THE PATIENT WILL BE SEEN IN A FOLLOW UP IN THE NEXT FEW WEEKS. INSTRUCTIONS WERE GIVEN, QUESTIONS WERE ANSWERED, AND THE PATIENT EXPRESSED UNDERSTANDING AND AGREES WITH THE PLAN. I, ADELAIDA SANDERS, DOCUMENTED THE ABOVE INFORMATION ACTING A SCRIBE FOR DR. LEONARDO. I HAVE REVIEWED THE ABOVE DOCUMENT, WRITTEN BY ADELAIDA SANDERS SCRIBE AND I VERIFY THAT IT IS [facility] FACET BLOCK (PAIN)[id number] PROCEDURE CODES 69039 INJ PARAVERT F JNT C/T 1 LEV 22410 INJ PARAVERT F JNT C/T 2 LEV 6045F RADXPS IN END [id number] PXD 73421 MOD SED SAME PHYS/QHP 5/>YRS DISPOSITION & COMMUNICATION FOLLOW UP 3 WEEKS ELECTRONICALLY SIGNED BY JAVON LEONARDO MD ON 05/28/2017 AT 08:24 PM EDT DISCLAIMER : THIS IS A VISIT SUMMARY EXTRACTED FROM THE [employer] CHART. IT IS NOT A COPY OF THE [employer] PROGRESS NOTE. MTDD
== END ==
LOC: M PAIN 11:40
PROVIDERS: ATTEND Anesthesiology
DX: G89.29 Other chronic pain (principal); M47.812 Spondylosis without myelopathy or radiculopathy, cervical region; E11.9 Type 2 diabetes mellitus without complications; I10 Essential (primary) hypertension; E07.9 Disorder of thyroid, unspecified; K21.9 Gastro-esophageal reflux disease without esophagitis; G43.909 Migraine, unspecified, not intractable, without status migrainosus; Z88.1 Allergy status to other antibiotic agents; Z88.8 Allergy status to other drugs, medicaments and biological substances; Z79.84 Long term (current) use of oral hypoglycemic drugs; Z79.891 Long term (current) use of opiate analgesic; Z79.899 Other long term (current) drug therapy
CPT/HCPCS: 64490; 64491; 99152; J2250; J3010; J3301; Q9967

== ENCOUNTER → 2017-05-18 | Outpatient (CLI) | payer OTHER ==
[~2017-05-18] MED LIST changes: -BUPIVACAINE HCL 0.25% 30 ML VIAL As Ordered ONE; -ISOVUE-M 300 61% 15ML VIAL (Q9967) As Ordered ONE; -LIDOCAINE 1% SDV INJ 30 ML VIAL As Ordered ONE; -MIDAZOLAM INJ 2 MG/2 ML VIAL (J2250) As Ordered ONE; -TRIAMCINOLONE ACETONIDE SUSP 40 MG/ML VIAL (J3301) As Ordered ONE; -fentaNYL 100 MCG/2 ML INJECTION (J3010) As Ordered ONE
--- NOTE | 2017-06-21 01:01 | ECWPNPC ---
PATIENT NAME: ALEX JI : 1965 GENDER: MALE VISIT DATE: 05/18/2017 DISCHARGE DATE: 05/18/17 0000 VISIT LOCKED DATE TIME: PHYSICIAN: BLANE EUGENE RESOURCE: BLANE EUGENE REASON FOR APPOINTMENT 1. W/C, NEEDS BOTOX SCRIPT HISTORY OF PRESENT ILLNESS HISTORY OF PRESENT ILLNESS: HERE FOR POST PROC. F/U.HAD CFBT ON 05-14-17.REPORTS MARKED REDUCTION IN NECK PAIN THAT CONTINUES TODAY.RATING PAIN VAS 3/10.WORSE AREA OF PAIN IS HEADACHE. HAS RESPONDED WELL TO BOTOX INJECTIONS IN PAST.STATES IT HAS BEEN APPROVED VIA [employer].DESCIBES GENERALIZED BODY PAIN CONSTANT, ACHING AND THROBBING. THIS IS A WORK INJURY W 1987.HAD TPI NECK ON 08-09-16.REPORTS SIGNIFICANT REDUCTION IN RESTRICTION OF ROJM UPPER BACK AND NECK POST PROCEDURE.PATIENT FEELS THIS IS BEGINNING TO WEAR OFF. PAIN THE PATIENT DESCRIBES THE PAIN... THE PATIENT DESCRIBES THE PAIN... THE PATIENT DESCRIBES THE PAIN... THE PATIENT DESCRIBES THE PAIN... THE PATIENT DESCRIBES THE PAIN... FALL RISK SCREENING: SCREENING :NO FALLS IN THE PAST YEAR CURRENT MEDICATIONS TAKING AMITRIPTYLINE HCL 50 MG TABLET 3 ORALLY FOR PAIN ONCE A DAY TAKING LYRICA 300 MG CAPSULE 1 CAPSULE ORALLY TWICE A DAY FOR PAIN TAKING SOMA 350 MG TABLET 1 TABLET NEEDED ORALLY 1 PER DAY NEEDED FOR SPASMS AND PAIN TAKING ROBAXIN-750 750 MG TABLET 1 TABLET ORALLY EVERY 4 HRS PRN FOR SPASMS AND PAIN MDD3 TAKING COLACE 100 MG CAPSULE 1 CAPSULE NEEDED ORALLY ONCE A DAY TAKING TOPAMAX 100 MG TABLET 1 TABLET ORALLY FOR PAIN TWICE A DAY TAKING KETOROLAC TROMETHAMINE 10 MG TABLET 1 TABLET WITH FOOD OR MILK NEEDED ORALLY EVERY 6 HRS NEEDED FOR PAIN MDD3 TAKING ATENOLOL 50 MG TABLET 1 TABLET ORALLY BID TAKING HYZAAR 100-25 MG TABLET 1 TABLET ORALLY ONCE A DAY TAKING TRIAMTERENE-HCTZ 37.5-25 MG TABLET 1 TABLET IN THE MORNING ORALLY ONCE A DAY TAKING LEVOTHYROXINE SODIUM 50 MCG TABLET 1 TABLET ORALLY ONCE A DAY TAKING PINDOLOL 5 MG TABLET 1 TABLET ORALLY QID TAKING POTASSIUM CHLORIDE 10 MEQ (PRT) TABLET EXTENDED RELEASE 1 TABLET ORALLY ONCE A DAY TAKING METFORMIN HCL ER 750 MG TABLET EXTENDED RELEASE 24 HOUR ORALLY TWICE A DAY TAKING TOUJEO SOLOSTAR 300 UNIT/ML SOLUTION PEN-INJECTOR 10 UNITS SUBCUTANEOUS EVERY A M TAKING FENTANYL 50 MCG/HR PATCH 72 HOUR 1 PATCH TO SKIN TRANSDERMAL 1 PATCH Q72 HRS TAKING PERCOCET 7.5-325 MG TABLET 1 ORALLY Q6H PRN MDD4 NOT-TAKING FLONASE 50 MCG/ACT SUSPENSION 1 SPRAY IN EACH NOSTRIL NASALLY ONCE A DAY MEDICATION LIST REVIEWED AND RECONCILED WITH THE PATIENT PAST MEDICAL HISTORY DM, HTN, CHRONIC PAIN , THYROID DISEASE, GERD, MIGRANES ALLERGIES AZITHROMYCIN: LIP SWELLING: ALLERGY SUMATRIPTAN: FACIAL SWELLING: ALLERGY PROPOXYPHENE: PRICKLY FEELING, RASH, SOB: ALLERGY SURGICAL HISTORY FUSION C3-C4 1994 3 SURGURIES TO LEFT KNEE 1993 HOSPITALIZATION/MAJOR DIAGNOSTIC PROCEDURE SURGERIES HYPERTENSION HEAD INJURY 03/1986 REVIEW OF SYSTEMS REVIEWED BY: PROVIDER: BLANE ACKERMAN . CONSTITUTIONAL: ANY CHANGE IN YOUR MEDICAL CONDITION? NO . CHILLS NO . FEVER NO . INFECTION: DO YOU HAVE NEW INFECTIONS? NO . DO YOU HAVE HISTORY OF MRSA? NO . MUSCULOSKELETAL: ANY NEW PATTERNS OF PAIN OR NUMBNESS? NO . GASTROENTEROLOGY: ANY NEW CHANGE IN BOWEL CONTROL? NO . GENITOURINARY: ANY NEW CHANGE IN BLADDER CONTROL? NO . IS THERE A CHANCE YOU COULD BE ? NO . HEMATOLOGY/LYMPH: DO YOU TAKE ANY BLOOD THINNERS? (FOR EXAMPLE- COUMADIN, PLAVIX, AGGRENOX, PLATEL, PRADAXA, OR XARELTO) NO . WHEN WAS YOUR LAST DOSE? DATE: TIME: . NEUROLOGY: HAVE YOU FALLEN IN THE PAST 6 MONTHS? YES, PT STATES HE FELL, HIS BACK GAVE OUT AND HE FELL . ANY NEW EXTREMITY NUMBNESS OR WEAKNESS? NO . CARDIOLOGY: DO YOU HAVE A PACEMAKER OR DEFIBRILLATOR? NO . RESPIRATORY: HAVE YOU BEEN SICK IN THE PAST WEEK? NO . FEVER NO . FLU LIKE SYMPTOMS? NO . COUGH NO . INTEGUMENTARY: DO YOU HAVE ANY RASHES OR OPEN SORES? NO . ALLERGIC/IMMUNO: ARE YOU ALLERGIC TO SHELLFISH OR IV DYE? NO . ANY NEW ALLERGIES? NO . PSYCHIATRIC: DO YOU HAVE THOUGHTS OF HURTING YOURSELF OR SOMEONE ELSE? NO . ARE YOU ABUSED, NEGLECTED, OR IN AN UNSAFE ENVIRONMENT? NO . ENDOCRINOLOGY: ARE YOU DIABETIC? YES . OTHER: DO YOU NEED ANY PRESCRIPTIONS? YES, TO DISCUSS WITH BLANE . IF YES, PLEASE LIST: ____ . ANY NEW PROBLEMS WITH YOUR MEDICATIONS? NO . WHEN DID YOU LAST EAT? ____ . WHEN DID YOU LAST DRINK? ____ . WHAT DID YOU LAST DRINK? ____ . NAME OF PERSON DRIVING YOU HOME? ____ . DO YOU HAVE ANY OTHER QUESTIONS OR CONCERNS NO . VITAL SIGNS WT 330 LBS, HT 75 IN, BMI 41.24 INDEX, BP 135/78 MM HG, HR 78 /MIN, RR 18 /MIN, TEMP 96.0 F, OXYGEN SAT % 95, NA INITIALS MP 1126, REVIEWED BY: EM. EXAMINATION GENERAL EXAMINATION: LUNGS:LUNG SOUNDS ARE CLEAR. HEART:HEART RATE REGULAR. MUSCULOSKELETAL:*. LUMBAR SACRAL SPINEMUSCLE STRENGTH TESTING 3/5 BILATERAL. PALPATION: POSITIVE FOR PAIN OVER CERVICAL SPINE. POSITIVE FOR PAIN OVER CERVICAL PARSPINALS. MULTIPLE TRIGGER POINTS ELICITED NECK AND TRAPEZIUS BILAT.. DIAGNOSTIC: . ASSESSMENTS SPONDYLOSIS WITHOUT MYELOPATHY OR RADICULOPATHY, CERVICAL REGION - M47.812 (PRIMARY) MYALGIA - M79.1 (PRIMARY) INTRACTABLE CHRONIC MIGRAINE WITHOUT AURA AND WITHOUT STATUS MIGRAINOSUS - G43.719 TREATMENT OTHERS REFILL AMITRIPTYLINE HCL TABLET, 50 MG, 3, ORALLY FOR PAIN, ONCE A DAY, 30 DAY(S), 90, REFILLS 2 REFILL LYRICA CAPSULE, 300 MG, 1 CAPSULE, ORALLY, TWICE A DAY FOR PAIN, 30 DAY(S), 60, REFILLS 0 REFILL SOMA TABLET, 350 MG, 1 TABLET NEEDED, ORALLY, 1 PER DAY NEEDED FOR SPASMS AND PAIN, 30 DAY(S), 30, REFILLS 0 REFILL ROBAXIN-750 TABLET, 750 MG, 1 TABLET, ORALLY, EVERY 4 HRS PRN FOR SPASMS AND PAIN MDD3, 30 DAY(S), 90, REFILLS 2 REFILL COLACE CAPSULE, 100 MG, 1 CAPSULE NEEDED, ORALLY, ONCE A DAY, 30 DAY(S), 30, REFILLS 2 REFILL TOPAMAX TABLET, 100 MG, 1 TABLET, ORALLY FOR PAIN, TWICE A DAY, 30 DAY(S), 60, REFILLS 2 REFILL FENTANYL PATCH 72 HOUR, 50 MCG/HR, 1 PATCH TO SKIN, TRANSDERMAL, 1 PATCH Q72 HRS, 30 DAYS, 10, REFILLS 0 REFILL PERCOCET TABLET, 7.5-325 MG, 1, ORALLY, Q6H PRN MDD4, 30 DAY(S), 100, REFILLS 0 START CYCLOBENZAPRINE HCL TABLET, 10 MG, 1 TABLET NEEDED, ORALLY, THREE TIMES A DAY, 10 DAY(S), 30 TABLET, REFILLS 0 NOTES: ISTOP REGISTRY REVIEWED AND DEMNOSTRATES COMPLLIANCE. BRINGS IN MEDICATIONS WHICH IS APPROPRIATE FOR WHAT WAS DISPENSED. RECENT URINE TOXICOLOGY REVIEWED. NO UNAUTHORIZED MEDICATIONS. NO ILLICIT SUBSTANCES AND PRESCRIBED MEDICATIONS WERE PRESENT. , RISKS AND BENEFITS OF NARCOTIC/OPIOD MEDICATIONS WERE REVIEWED WITH PATIENT - THIS INCLUDES BUT IS NOT LIMITED TO RISK OF DEPENDANCE/DEVELOPMENT OF ADDICTION, MOOD DISTURBANCE AND DEPRESSION, OSTEOPOROSIS, HORMONAL AND LABIDAL CHANGES, RESPIRATORY DEPRESSION AND . PATIENT IS ADVISED NOT TO DRIVE WHILE ON THESE MEDICA. PROCEDURES PN WORKMANS' COMP OPINION IN YOUR OPINION, WAS THE INCIDENT THAT THE PATIENT DESCRIBED THE COMPETENT MEDICAL CAUSE OF THIS INJURY/ILLNESS? YES ARE THE PATIENT'S COMPLAINTS CONSISTENT WITH HIS/HER HISTORY OF THE INJURY/ILLNESS? YES IS THE PATIENT'S HISTORY OF THE INJURY/ILLNESS CONSISTENT WITH YOUR OBJECTIVE FINDING? YES WHAT IS THE PERCENTAGE OF TEMPORARY IMPAIRMENT? TOTAL = 100% IS THE PATIENT WORKING? NO DOCTOR ON SITE: JAVON VALDEZ MD PROCEDURE CODES FA211 ESTABILISHED PATIENT [facility] CHARGE DISPOSITION & COMMUNICATION FOLLOW UP 4 WEEKS (REASON: W/C SCHEDULE BOTOX) ELECTRONICALLY SIGNED BY MEKA PRESLEY ON 06/20/2017 AT 04:57 PM EDT DISCLAIMER : THIS IS A VISIT SUMMARY EXTRACTED FROM THE [employer] CHART. IT IS NOT A COPY OF THE [employer] PROGRESS NOTE. MTDD
== END ==
LOC: M PAIN 11:00
PROVIDERS: ATTEND Nurse Practitioner Family
DX: M47.812 Spondylosis without myelopathy or radiculopathy, cervical region (principal); M79.1 Myalgia; G43.719 Chronic migraine without aura, intractable, without status migrainosus; I10 Essential (primary) hypertension; E11.9 Type 2 diabetes mellitus without complications; Z79.84 Long term (current) use of oral hypoglycemic drugs; Z79.4 Long term (current) use of insulin; Z79.891 Long term (current) use of opiate analgesic; Z79.899 Other long term (current) drug therapy; Z88.0 Allergy status to penicillin; Z88.8 Allergy status to other drugs, medicaments and biological substances

== ENCOUNTER → 2017-07-11 | Outpatient (CLI) | payer OTHER ==
[~2017-07-11] MED LIST changes: +BOTULINUM INJ 100 UNITS (J0585) IM ONE; +diazePAM 5 MG TAB As Ordered ONE; +oxyCODONE 5MG TAB As Ordered ONE
--- NOTE | 2017-07-18 01:28 | ECWPNPC ---
PATIENT NAME: ALEX JI : 1965 GENDER: MALE VISIT DATE: 07/11/2017 DISCHARGE DATE: 07/11/17 1411 VISIT LOCKED DATE TIME: PHYSICIAN: JAVON LEONARDO RESOURCE: JAVON LEONARDO REASON FOR APPOINTMENT 1. BOTOX HISTORY OF PRESENT ILLNESS HISTORY OF PRESENT ILLNESS: PAIN THE PATIENT DESCRIBES THE PAIN... THE PATIENT DESCRIBES THE PAIN... PAIN THE PATIENT DESCRIBES THE PAIN... THE PATIENT DESCRIBES THE PAIN... FALL RISK SCREENING: SCREENING :NO FALLS IN THE PAST YEAR :NO FALLS IN THE PAST YEAR SCREENING :NO FALLS IN THE PAST YEAR :NO FALLS IN THE PAST YEAR CURRENT MEDICATIONS TAKING KETOROLAC TROMETHAMINE 10 MG TABLET 1 TABLET WITH FOOD OR MILK NEEDED ORALLY EVERY 6 HRS NEEDED FOR PAIN MDD3, NOTES: 2199 TAKING ATENOLOL 50 MG TABLET 1 TABLET ORALLY BID, NOTES: 07-11-17899 TAKING HYZAAR 100-25 MG TABLET 1 TABLET ORALLY ONCE A DAY, NOTES: 07-10-172199 TAKING TRIAMTERENE-HCTZ 37.5-25 MG TABLET 1 TABLET IN THE MORNING ORALLY ONCE A DAY, NOTES: 07-11-17699 TAKING LEVOTHYROXINE SODIUM 50 MCG TABLET 1 TABLET ORALLY ONCE A DAY, NOTES: 07-11-17899 TAKING PINDOLOL 5 MG TABLET 1 TABLET ORALLY QID, NOTES: 07-11-17899 TAKING POTASSIUM CHLORIDE 10 MEQ (PRT) TABLET EXTENDED RELEASE 1 TABLET ORALLY ONCE A DAY, NOTES: 07-11-17699 TAKING METFORMIN HCL ER 750 MG TABLET EXTENDED RELEASE 24 HOUR ORALLY TWICE A DAY, NOTES: 07-10-172099 TAKING TOUJEO SOLOSTAR 300 UNIT/ML SOLUTION PEN-INJECTOR 10 UNITS SUBCUTANEOUS EVERY A M TAKING AMITRIPTYLINE HCL 50 MG TABLET 3 ORALLY FOR PAIN ONCE A DAY, NOTES: 07-10-172199 TAKING ROBAXIN-750 750 MG TABLET 1 TABLET ORALLY EVERY 4 HRS PRN FOR SPASMS AND PAIN MDD3, NOTES: 07-11-17899 TAKING COLACE 100 MG CAPSULE 1 CAPSULE NEEDED ORALLY ONCE A DAY, NOTES: 07-10-172199 TAKING TOPAMAX 100 MG TABLET 1 TABLET ORALLY FOR PAIN TWICE A DAY, NOTES: 8-82-23-0700 TAKING PERCOCET 7.5-325 MG TABLET 1 ORALLY Q6H PRN MDD4, NOTES: 07-11-17 0900 TAKING SOMA 350 MG TABLET 1 TABLET NEEDED ORALLY 1 PER DAY NEEDED FOR SPASMS AND PAIN, NOTES: 07-10-17 2200 TAKING FENTANYL 50 MCG/HR PATCH 72 HOUR 1 PATCH TO SKIN TRANSDERMAL 1 PATCH Q72 HRS, NOTES: ON LEFT SHOULDER TAKING LYRICA 300 MG CAPSULE 1 CAPSULE ORALLY TWICE A DAY FOR PAIN, NOTES: 07-11-17 NOT-TAKING CYCLOBENZAPRINE HCL 10 MG TABLET 1 TABLET NEEDED ORALLY THREE TIMES A DAY NOT-TAKING FLONASE 50 MCG/ACT SUSPENSION 1 SPRAY IN EACH NOSTRIL NASALLY ONCE A DAY MEDICATION LIST REVIEWED AND RECONCILED WITH THE PATIENT PAST MEDICAL HISTORY DM, HTN, CHRONIC PAIN , THYROID DISEASE, GERD, MIGRANES ALLERGIES AZITHROMYCIN: LIP SWELLING: ALLERGY SUMATRIPTAN: FACIAL SWELLING: ALLERGY PROPOXYPHENE: PRICKLY FEELING, RASH, SOB: ALLERGY REVIEW OF SYSTEMS REVIEWED BY: PROVIDER: , . CONSTITUTIONAL: ANY CHANGE IN YOUR MEDICAL CONDITION? NO, NO . CHILLS NO, NO . FEVER NO, NO . INFECTION: DO YOU HAVE NEW INFECTIONS? NO, NO . DO YOU HAVE HISTORY OF MRSA? NO, NO . MUSCULOSKELETAL: ANY NEW PATTERNS OF PAIN OR NUMBNESS? NO, NO . GASTROENTEROLOGY: ANY NEW CHANGE IN BOWEL CONTROL? NO, NO . GENITOURINARY: ANY NEW CHANGE IN BLADDER CONTROL? NO, NO . IS THERE A CHANCE YOU COULD BE ? NO, NO . HEMATOLOGY/LYMPH: DO YOU TAKE ANY BLOOD THINNERS? (FOR EXAMPLE- COUMADIN, PLAVIX, AGGRENOX, PLATEL, PRADAXA, OR XARELTO) NO, NO . WHEN WAS YOUR LAST DOSE? DATE: TIME: , DATE: TIME: . NEUROLOGY: HAVE YOU FALLEN IN THE PAST 6 MONTHS? NO, NO . ANY NEW EXTREMITY NUMBNESS OR WEAKNESS? NO, NO . CARDIOLOGY: DO YOU HAVE A PACEMAKER OR DEFIBRILLATOR? NO, NO . RESPIRATORY: HAVE YOU BEEN SICK IN THE PAST WEEK? NO, NO . FEVER NO, NO . FLU LIKE SYMPTOMS? NO, NO . COUGH NO, NO . INTEGUMENTARY: DO YOU HAVE ANY RASHES OR OPEN SORES? NO, NO . ALLERGIC/IMMUNO: ARE YOU ALLERGIC TO SHELLFISH OR IV DYE? NO, NO . ANY NEW ALLERGIES? NO, NO . PSYCHIATRIC: DO YOU HAVE THOUGHTS OF HURTING YOURSELF OR SOMEONE ELSE? NO, NO . ARE YOU ABUSED, NEGLECTED, OR IN AN UNSAFE ENVIRONMENT? NO, NO . ENDOCRINOLOGY: ARE YOU DIABETIC? NO, NO . OTHER: DO YOU NEED ANY PRESCRIPTIONS? NO, NO . IF YES, PLEASE LIST: ____, ____ . ANY NEW PROBLEMS WITH YOUR MEDICATIONS? NO, NO . WHEN DID YOU LAST EAT? ____, ____LAST NIGHT . WHEN DID YOU LAST DRINK? THIS MORNING . WHAT DID YOU LAST DRINK? WATER____, ____ . NAME OF PERSON DRIVING YOU HOME? ____, ____CRICKET . DO YOU HAVE ANY OTHER QUESTIONS OR CONCERNS NO, NO . VITAL SIGNS WT 330 LBS, HT 75 IN, BMI 41.24 INDEX, BP 117/66 MM HG, HR 87 /MIN, RR 20 /MIN, TEMP 97.2 F, OXYGEN SAT % 94, NA INITIALS MP 1155. ASSESSMENTS CHRONIC MIGRAINE WITHOUT AURA WITHOUT STATUS MIGRAINOSUS, NOT INTRACTABLE - G43.709 (PRIMARY) PROCEDURES PN BOTOX INJECTIONS SUBSEQUENT INJECTIONS PRE PROCEDURE DIAGNOSIS CHRONIC MIGRAINE HEADACHES POST PROCEDURE DIAGNOSIS CHRONIC MIGRAINE HEADACHES PROCEDURE BOTOX INJECTION AT THE HEAD AND SHOULDERS SURGEON DR. JAVON LEONARDO NARROW [employer] WEAVER NONE ANESTHESIA NONE PRE PROCEDURE NOTE THE PATIENT HAS HISTORY OF CHRONIC MIGRAINE HEADACHES. I EVALUATE THE PATIENT AND REVIEWED THE CHART. I WENT OVER THE RISKS, ALTERNATIVES, AND BENEFITS ASSOCIATED WITH THIS PROCEDURE. THE PATIENT WOULD LIKE TO PROCEED AND GIVE CONSENT TO PERFORMED THE PROCEDURE. THE PATIENT DENIES UNEXPLAINABLE WEIGHT LOSS, FEVER, CHILLS, OR NEW CHANGES IN URINARY OR BOWEL CONTROL. THE PATIENT EXPRESS THAT THE USE OF BOTOX HAS REDUCE SIGNIFICANTLY THE SEVERITY OF THE HEADACHES IN THE PAST AND EXPRESSED THAT WANT TO RECEIVE THIS PROCEDURE AGAIN TODAY DESCRIPTION OF PROCEDURE THE PATIENTS WAS BROUGHT TO THE PROCEDURE ROOM AND PLACED IN THE SUPINE POSITION. I CHECKED LATERALITY AND THE AREAS WHERE THE PROCEDURE WAS GOING TO BE PERFORMED WITH THE PATIENT AND THE SUPPORTING STAFF AT THE MOMENT OF THE TIME OUT IN THE PROCEDURE ROOM. FOR THE PROCEDURE I USED A SOLUTION OF 5 UNITS OF BOTOX PER EACH 0.1 ML OF THE SOLUTION. I USED A 30-GAUGE NEEDLE TO INJECT THE SOLUTION AT THE SELECTED LOCATIONS. I INJECTED FIRST THE RIGHT AND LEFT ECONOMIC RESEARCH ASSISTANT MUSCLES. THE LANDMARK FOR BOTH INJECTIONS WAS APPROXIMATELY 1 CM ABOVE THE SUPERIOR MEDIAL EDGE OF THE EYEBROW. AFTER THESE TWO INJECTIONS, I INJECTED THE PROCERUS MUSCLE AT THE MIDLINE POINT BETWEEN THESE FIRST TWO INJECTIONS. THEN I PROCEEDED TO INJECT THE RIGHT AND LEFT FRONTALIS MUSCLE. TWO INJECTIONS WERE DONE IN EACH SIDE. THE FIRST INJECTION WAS DONE APPROXIMATELY 2 CM ABOVE THE FIRST INJECTION OF THE ECONOMIC RESEARCH ASSISTANT. THE SECOND INJECTION WAS DONE APPROXIMATELY 1.5 CM LATERAL TO THIS FIST INJECTION OF THE FRONTALIS OF EACH SIDE. AFTER THE INJECTIONS OVER THE FOREHEAD WERE DONE, THE PATIENT'S HEAD WAS TURNED TO THE LEFT SIDE AND WE STARTED TO WORK WITH THE RIGHT TEMPORALIS MUSCLE. FIRST INJECTION WAS DONE IN A VERTICAL LINE OF THE TRAGUS APPROXIMATELY 3 CM ABOVE THE TRAGUS. THE SECOND INJECTION WAS DONE APPROXIMATELY 2 CM ABOVE THE FIRST INJECTION. THE THIRD INJECTION WAS DONE APPROXIMATELY 1 CM FRONT SARGENT FROM THIS VERTICAL LINE CREATED AT THE LEVEL OF THE TRAGUS, CUSTODIAL BETWEEN THESE TWO INJECTIONS. THE FOURTH INJECTION WAS DONE APPROXIMATELY 1.5 CM BACK FROM THE SECOND INJECTION TO THE TEMPORALIS IN LINE TO THE MIDPORTION OF THE EAR. THEN, WE PROCEEDED TO INJECT THE LEFT TEMPORALIS MUSCLE. WE CLEANED THE AREA WITH ALCOHOL AND PROCEEDED TO PERFORM THE SAME FOR INJECTIONS DESCRIBED ABOVE BUT IN THE LEFT TEMPORALIS MUSCLE USING THE SAME LANDMARKS. AFTER THESE INJECTIONS WERE DONE, THE PATIENT WAS SEATED. FIRST, WE STARTED TO INJECT THE LEFT AND RIGHT OCCIPITALIS MUSCLE. I INJECTED AT THE FOLLOWING PLACES IN THE RIGHT AND LEFT MUSCLE. THE FIRST INJECTION WAS DONE AT THE MIDPOINT POSITION BETWEEN THE MASTOID PROCESS AND THE INION OF THE OCCIPITAL PROTUBERANCE. THE SECOND INJECTION WAS DONE APPROXIMATELY 1.5 CM SUPERIOR AND LATERAL OF THIS POINT. THE THIRD INJECTION WAS DONE APPROXIMATELY 1.5 CM SUPERIOR AND MEDIAL TO THIS FIRST INJECTION. THEN, I PROCEEDED TO INJECT THE RIGHT AND LEFT PARASPINAL MUSCLES. LANDMARK OF THE INJECTION WERE APPROXIMATELY: FIRST INJECTION 3 CM BELOW THE INION AND 1 CM LATERAL TO THE MIDLINE AND SECOND INJECTION AT EACH SIDE WAS DONE APPROXIMATELY 1.5 CM SUPERIOR AND LATERAL OF THE FIRST INJECTION. THE LAST GROUP OF INJECTIONS WAS DONE OVER THE RIGHT AND LEFT TRAPEZIUS MUSCLE OVER THE SHOULDERS AREA. THE FIRST INJECTION WAS DONE AT THE MIDPOINT BETWEEN THE INFLECTION POINT BETWEEN THE NECK AND SHOULDER AND THE ACROMION. THE SECOND AND THIRD INJECTIONS WERE DONE APPROXIMATELY 2.5 CM LATERAL AND MEDIAL FROM THIS FIRST INJECTION. SAME TARGETS WERE USED IN THE RIGHT AND LEFT SIDE. IN TOTAL, I INJECTED 155 UNITS OF BOTOX. PROCEDURE WAS DONE WITHOUT EVIDENCE OF PARESTHESIA, PNEUMOTHORAX, OR ANY COMPLICATIONS. THE PATIENT TOLERATED THE PROCEDURE VERY WELL. THE PATIENT WAS SENT TO THE RECOVERY ROOM FOR OBSERVATIONS. INJECTIONS WERE DONE AFTER CLEANING WITH ALCOHOL, USING ASEPTIC TECHNIQUES POST PROCEDURE NOTE THE PROCEDURE DONE WAS DISCUSSED WITH THE PATIENT. THE PATIENT WILL BE SEEN IN A FOLLOW UP IN THE NEXT FEW WEEKS. INSTRUCTIONS WERE GIVEN, QUESTIONS WERE ANSWERED, AND THE PATIENT EXPRESSED UNDERSTANDING AND AGREES WITH THE PLAN. I, ADELAIDA SANDERS, DOCUMENTED THE ABOVE INFORMATION ACTING A SCRIBE FOR DR. LEONARDO. I HAVE REVIEWED THE ABOVE DOCUMENT, WRITTEN BY ADELAIDA DICKIBAlanna AND I VERIFY THAT IT IS ACCURATE PROCEDURE CODES 76168 CHEMODENERV [employer] MIGRAINE DISPOSITION & COMMUNICATION FOLLOW UP 3 WEEKS ELECTRONICALLY SIGNED BY JAVON LEONARDO MD ON 07/16/2017 AT 12:56 PM EDT DISCLAIMER : THIS IS A VISIT SUMMARY EXTRACTED FROM THE [employer] [facility] [employer] CHART. IT IS NOT A COPY OF THE [employer] [facility] [employer] PROGRESS NOTE. MTDShiloh
== END ==
LOC: M PAIN 11:30
PROVIDERS: ATTEND Anesthesiology
DX: G43.709 Chronic migraine without aura, not intractable, without status migrainosus (principal); E11.9 Type 2 diabetes mellitus without complications; I10 Essential (primary) hypertension; E07.9 Disorder of thyroid, unspecified; Z79.891 Long term (current) use of opiate analgesic; Z79.4 Long term (current) use of insulin; Z88.0 Allergy status to penicillin; Z88.8 Allergy status to other drugs, medicaments and biological substances
CPT/HCPCS: 64615; J0585

== ENCOUNTER → 2017-07-17 | Outpatient (CLI) | payer OTHER ==
[~2017-07-17] MED LIST changes: -BOTULINUM INJ 100 UNITS (J0585) IM ONE; -diazePAM 5 MG TAB As Ordered ONE; -oxyCODONE 5MG TAB As Ordered ONE
== END ==
LOC: M PAIN 15:30
PROVIDERS: ATTEND Anesthesiology
DX: Z53.9 Procedure and treatment not carried out, unspecified reason (principal)

== ENCOUNTER → 2017-07-24 | Outpatient (CLI) | payer OTHER ==
--- NOTE | 2017-07-31 00:50 | ECWPNPC ---
PATIENT NAME: ALEX JI : 1965 GENDER: MALE VISIT DATE: 07/24/2017 DISCHARGE DATE: 07/24/17 170 VISIT LOCKED DATE TIME: PHYSICIAN: JAVON LEONARDO RESOURCE: JAVON LEONARDO REASON FOR APPOINTMENT 1. W/C HISTORY OF PRESENT ILLNESS HISTORY OF PRESENT ILLNESS: PAIN THE PATIENT DESCRIBES THE PAIN... 51 YEAR OLD MALE PATIENT WITH HISTORY OF CHRONIC NECK, BACK, AND HEAD PAIN. PATIENT DESCRIBES THE PAIN TENDER, THROBBING, SORE, AND HAVING IT ALL THE TIME WITH A PAIN SCORE OF 8/10 ON TODAY'S VISIT. PATIENT WAS INJURED IN A WORK RELATED INJURY ON 04/13/1988 WORKING FOR [employer], PATIENT WAS TIEING DOWN A ROLL OF CARPET WHEN ANOTHER ROLL OF CARPET FELL ON HIM, INJURING HIS NECK, BACK, AND HEAD. PATIENT RECEIVED BOTOX INJECTION FOR MIGRAINES ON 07/11/17 AND STATES THAT HE IS FEELING RELIEF FROM THE HEADACHES AT THIS TIME. CURRENTLY THE PATIENT IS USING AMITRIPTYLINE, LYRICA, SOMA, ROBAXIN, COLACE, TOPAMAX AND SOMA AND THE PATIENT STATES THAT WITHOUT THESE MEDICATIONS HE WOULD NOT BE ABLE TO FUNCTION/. PATIENT DENIES UNEXPLAINABLE WEIGHT LOSS, FEVER, CHILLS, NEW CHANGES ON HIS URINARY OR BOWEL CONTROL. FALL RISK SCREENING: SCREENING :NO FALLS IN THE PAST YEAR CURRENT MEDICATIONS TAKING KETOROLAC TROMETHAMINE 10 MG TABLET 1 TABLET WITH FOOD OR MILK NEEDED ORALLY EVERY 6 HRS NEEDED FOR PAIN MDD3, NOTES: 3- 2200 TAKING ATENOLOL 50 MG TABLET 1 TABLET ORALLY BID, NOTES: 07-11-17899 TAKING HYZAAR 100-25 MG TABLET 1 TABLET ORALLY ONCE A DAY, NOTES: 07-10-172199 TAKING TRIAMTERENE-HCTZ 37.5-25 MG TABLET 1 TABLET IN THE MORNING ORALLY ONCE A DAY, NOTES: 07-11-17699 TAKING LEVOTHYROXINE SODIUM 50 MCG TABLET 1 TABLET ORALLY ONCE A DAY, NOTES: 07-11-17899 TAKING PINDOLOL 5 MG TABLET 1 TABLET ORALLY QID, NOTES: 07-11-17899 TAKING POTASSIUM CHLORIDE 10 MEQ (PRT) TABLET EXTENDED RELEASE 1 TABLET ORALLY ONCE A DAY, NOTES: 07-11-17699 TAKING METFORMIN HCL ER 750 MG TABLET EXTENDED RELEASE 24 HOUR ORALLY TWICE A DAY, NOTES: 07-10-17 2100 TAKING TOUJEO SOLOSTAR 300 UNIT/ML SOLUTION PEN-INJECTOR 10 UNITS SUBCUTANEOUS EVERY A M TAKING AMITRIPTYLINE HCL 50 MG TABLET 3 ORALLY FOR PAIN ONCE A DAY, NOTES: 07-10-172199 TAKING ROBAXIN-750 750 MG TABLET 1 TABLET ORALLY EVERY 4 HRS PRN FOR SPASMS AND PAIN MDD3, NOTES: 07-11-17899 TAKING COLACE 100 MG CAPSULE 1 CAPSULE NEEDED ORALLY ONCE A DAY, NOTES: 07-10-172199 TAKING TOPAMAX 100 MG TABLET 1 TABLET ORALLY FOR PAIN TWICE A DAY, NOTES: 07-11-17-699 TAKING PERCOCET 7.5-325 MG TABLET 1 ORALLY Q6H PRN MDD4, NOTES: 07-11-17899 TAKING SOMA 350 MG TABLET 1 TABLET NEEDED ORALLY 1 PER DAY NEEDED FOR SPASMS AND PAIN, NOTES: 07-10-172199 TAKING FENTANYL 50 MCG/HR PATCH 72 HOUR 1 PATCH TO SKIN TRANSDERMAL 1 PATCH Q72 HRS, NOTES: ON LEFT SHOULDER TAKING LYRICA 300 MG CAPSULE 1 CAPSULE ORALLY TWICE A DAY FOR PAIN, NOTES: 07-11-17 NOT-TAKING CYCLOBENZAPRINE HCL 10 MG TABLET 1 TABLET NEEDED ORALLY THREE TIMES A DAY NOT-TAKING FLONASE 50 MCG/ACT SUSPENSION 1 SPRAY IN EACH NOSTRIL NASALLY ONCE A DAY MEDICATION LIST REVIEWED AND RECONCILED WITH THE PATIENT PAST MEDICAL HISTORY DM, HTN, CHRONIC PAIN , THYROID DISEASE, GERD, MIGRANES ALLERGIES AZITHROMYCIN: LIP SWELLING: ALLERGY SUMATRIPTAN: FACIAL SWELLING: ALLERGY PROPOXYPHENE: PRICKLY FEELING, RASH, SOB: ALLERGY REVIEW OF SYSTEMS REVIEWED BY: PROVIDER: JAVON LEONARDO MD . CONSTITUTIONAL: ANY CHANGE IN YOUR MEDICAL CONDITION? NO . CHILLS NO . FEVER NO . INFECTION: DO YOU HAVE NEW INFECTIONS? NO . DO YOU HAVE HISTORY OF MRSA? NO . MUSCULOSKELETAL: ANY NEW PATTERNS OF PAIN OR NUMBNESS? NO . GASTROENTEROLOGY: ANY NEW CHANGE IN BOWEL CONTROL? NO . GENITOURINARY: ANY NEW CHANGE IN BLADDER CONTROL? NO . IS THERE A CHANCE YOU COULD BE ? NO . HEMATOLOGY/LYMPH: DO YOU TAKE ANY BLOOD THINNERS? (FOR EXAMPLE- COUMADIN, PLAVIX, AGGRENOX, PLATEL, PRADAXA, OR XARELTO) NO . WHEN WAS YOUR LAST DOSE? DATE: TIME: . NEUROLOGY: HAVE YOU FALLEN IN THE PAST 6 MONTHS? NO . ANY NEW EXTREMITY NUMBNESS OR WEAKNESS? NO . CARDIOLOGY: DO YOU HAVE A PACEMAKER OR DEFIBRILLATOR? NO . RESPIRATORY: HAVE YOU BEEN SICK IN THE PAST WEEK? NO . FEVER NO . FLU LIKE SYMPTOMS? NO . COUGH NO . INTEGUMENTARY: DO YOU HAVE ANY RASHES OR OPEN SORES? NO . ALLERGIC/IMMUNO: ARE YOU ALLERGIC TO SHELLFISH OR IV DYE? NO . ANY NEW ALLERGIES? NO . PSYCHIATRIC: DO YOU HAVE THOUGHTS OF HURTING YOURSELF OR SOMEONE ELSE? NO . ARE YOU ABUSED, NEGLECTED, OR IN AN UNSAFE ENVIRONMENT? NO . ENDOCRINOLOGY: ARE YOU DIABETIC? YES . OTHER: DO YOU NEED ANY PRESCRIPTIONS? YES . IF YES, PLEASE LIST: ____OXYCODONE, LYRICA, SOMA . ANY NEW PROBLEMS WITH YOUR MEDICATIONS? NO . WHEN DID YOU LAST EAT? ____ . WHEN DID YOU LAST DRINK? ____ . WHAT DID YOU LAST DRINK? ____ . NAME OF PERSON DRIVING YOU HOME? ____ . DO YOU HAVE ANY OTHER QUESTIONS OR CONCERNS NO . VITAL SIGNS WT 330 LBS, HT 75 IN, BMI 41.24 INDEX, BP 130/83 MM HG, HR 88 /MIN, RR 20 /MIN, TEMP 96.8 F, OXYGEN SAT % 93%, BLOOD GLUCOSE LEVEL 91 PER PT, NA INITIALS SC 15:21, REVIEWED BY: KAROLINA. EXAMINATION : PATIENT IS ALERT O X 3 AND COOPERATIVE. THERE IS TENDERNESS IN THE CERVICAL PARASPINAL MUSCLE GROUP. CT OF THE CERVICAL SPINE DONE ON 07/30/2015 SHOWS FACET ARTHROPATHY AND A FUSION AT C3-C4. CT OF THE LUMBAR SPINE DONE ON DISC BULGES AND FACET ARTHROPATHY AT MULTIPLE LEVELS. THE PATIENTS MOVES WITH DIFFICULTIES. GAIT IS UNSTEADY. HE HAS DIFFICULTIES STANDING. HE USE A CANE TO AMBULATE. ALSO SEVERE DIFFICULTIES FLEXING AND EXTENDING HIS BACK. LEFT LEG STRAIGHT LEG RAISING TEST POSITIVE AT [address] LUMBAR SPINE 02/15/2017 REVIEWED. ASSESSMENTS INTERVERTEBRAL DISC DISORDER WITH RADICULOPATHY OF LUMBOSACRAL REGION - M51.17 (PRIMARY) CHRONIC MIGRAINE WITHOUT AURA WITHOUT STATUS MIGRAINOSUS, NOT INTRACTABLE - G43.709 SPONDYLOSIS OF CERVICAL REGION WITHOUT MYELOPATHY OR RADICULOPATHY - M47.812 LOW BACK PAIN - M54.5 OTHER CHRONIC PAIN - G89.29 TREATMENT CHRONIC MIGRAINE WITHOUT AURA WITHOUT STATUS MIGRAINOSUS, NOT INTRACTABLE REFILL TOPAMAX TABLET, 100 MG, 1 TABLET, ORALLY FOR PAIN, TWICE A DAY, 30 DAY(S), 60, REFILLS 2, NOTES: 07-11-17 REFILL PERCOCET TABLET, 7.5-325 MG, 1, ORALLY, Q6H PRN MDD4, 30 DAY(S), 100, REFILLS 0, NOTES: 07-11-17899 REFILL SOMA TABLET, 350 MG, 1 TABLET NEEDED, ORALLY, 1 PER DAY NEEDED FOR SPASMS AND PAIN, 30 DAY(S), 30, REFILLS 0, NOTES: 07-10-172199 REFILL FENTANYL PATCH 72 HOUR, 50 MCG/HR, 1 PATCH TO SKIN, TRANSDERMAL, 1 PATCH Q72 HRS, 30 DAYS, 10, REFILLS 0, NOTES: ON LEFT SHOULDER REFILL LYRICA CAPSULE, 300 MG, 1 CAPSULE, ORALLY, TWICE A DAY FOR PAIN, 30 DAY(S), 60, REFILLS 2, NOTES: 07-11-17 REFILL KETOROLAC TROMETHAMINE TABLET, 10 MG, 1 TABLET WITH FOOD OR MILK NEEDED, ORALLY, EVERY 6 HRS NEEDED FOR PAIN MDD3, 5 DAY(S), 15, REFILLS 1, NOTES: 2199 REFILL AMITRIPTYLINE HCL TABLET, 50 MG, 3, ORALLY FOR PAIN, ONCE A DAY, 30 DAY(S), 90, REFILLS 2, NOTES: 07-10-172199 REFILL ROBAXIN-750 TABLET, 750 MG, 1 TABLET, ORALLY, EVERY 4 HRS PRN FOR SPASMS AND PAIN MDD3, 30 DAY(S), 90, REFILLS 2, NOTES: 07-11-17899 REFILL COLACE CAPSULE, 100 MG, 1 CAPSULE NEEDED, ORALLY, ONCE A DAY, 30 DAY(S), 30, REFILLS 2, NOTES: 07-10-172199 NOTES: URINE TOXICOLOGYPILL COUNT LUMBAR EPIDURAL. CLINICAL NOTES: WE DISCUSSED SEVERAL ISSUES WITH MR. JI PAIN MANAGEMENT CASE. AT THIS TIME THE PATIENT WILL CONTINUE WITH THE SAME MEDICATION REGIME BEFORE. PATIENT IS USING PERCOCET, FENTANYL PATCH AND KETOROLAC FOR THE SOMATIC PAIN, SOMA AND ROBAXIN FOR THE MUSCLE SPASMS AND SPASTICITY, AMITRIPTYLINE AND LYRICA FOR THE NEUROPATHIC PAIN, TOPAMAX FOR THE HEADACHES, AND COLACE FOR THE CONSTIPATION FROM THE OPIOIDS. THE PATIENT EXPLAINED THAT IF HE REDUCE THE USE OF MUSCLE RELAXANTS THE SPASMS ARE NOT TOLERABLE REASON WHY HE NEEDS TO USE THEM EVERY DAY. PATIENT STATES THAT THE MEDICATION KEEPS HIM MOBILE AND FUNCTIONAL AND WITHOUT THE MEDICATION HE STATES HE WOULD NOT BE ABLE TO FUNCTION ENOUGH TO EVEN GET OUT OF BED. MR. JI STATES THAT HE HAS TRIED TO REDUCE THE MEDICATION BUT WHEN HE DOES HE IS UNABLE TO MOVE OR FUNCTION DUE TO SEVERE PAIN. PATIENT DENIES ABUSE OF ANY MEDICATION, DENIES USE OF ILLEGAL SUBSTANCES, AND STATES THAT HE IS ONLY USING THE MEDICATION FOR PAIN MANAGEMENT. URINE TOXICOLOGY REPORT DONE ON 11/2016 SHOWS CONSISTENT RESULTS. PATIENT WILL PERFORM A URINE TOXICOLOGY TODAY. PATIENT HAD A RANDOM PILL COUNT AT TODAY'S VISIT. OPIOID RISK TOOL SHOWS LOW RISK. DUE TO THE SEVERE PAIN IN THE PATIENT'S LOWER BACK AND THE RADICULAR PAIN I WOULD LIKE TO PROCEED WITH A LUMBAR EPIDURAL. THE BOTOX INJECTION HAS HELPED HIM. AFTER FURTHER DISCUSSION WITH MR. JI MY PLAN IS TO REDUCE THE FENTANYL PATCH FROM 50 TO 25 MCG AFTER THE EPIDURAL. THE PATIENT UNDERSTAND THE ATTEMPTS ON REDUCING THE OPIOIDS USE AND WILL LIKE TO CONTINUE WITH THE PLAN. WE DISCUSSED THE RISKS, BENEFITS, AND ALTERNATIVES OF THE INE MEDICATION AND THE PATIENT WOULD LIKE TO PROCEED. PATIENT HAS HAD DECREASED PAIN AND INCREASED MOBILITY AND FUNCTIONALITY FROM THIS INJECTION IN THE PAST. INSTRUCTIONS WERE GIVEN, QUESTIONS WERE ANSWERED, PATIENT REPORTS UNDERSTANDING AND AGREES WITH THE PLAN. I, ADELAIDA SANDERS, DOCUMENTED THE ABOVE INFORMATION ACTING A SCRIBE FOR DR. LEONARDO. I HAVE REVIEWED THE ABOVE DOCUMENT, WRITTEN BY ADELAIDA CRISTOBAL AND I VERIFY THAT IT IS ACCURATE. PROCEDURES PN WORKMANS' COMP OPINION IN YOUR OPINION, WAS THE INCIDENT THAT THE PATIENT DESCRIBED THE COMPETENT MEDICAL CAUSE OF THIS INJURY/ILLNESS? YES ARE THE PATIENT'S COMPLAINTS CONSISTENT WITH HIS/HER HISTORY OF THE INJURY/ILLNESS? YES IS THE PATIENT'S HISTORY OF THE INJURY/ILLNESS CONSISTENT WITH YOUR OBJECTIVE FINDING? YES WHAT IS THE PERCENTAGE OF TEMPORARY IMPAIRMENT? TOTAL = 100% IS THE PATIENT WORKING? NO DOCTOR ON SITE: JAVON VALDEZ MD PROCEDURE CODES FA211 ESTABILISHED PATIENT [facility] CHARGE B0466 DOC MEDS VERIFIED W/PT OR RE D1656 PAIN ASSESS POS TOOL F/U PLAN DOC DISPOSITION & COMMUNICATION FOLLOW UP LESI AFTER APPROVAL ELECTRONICALLY SIGNED BY JAVON LEONARDO MD ON 07/30/2017 AT 11:18 AM EDT DISCLAIMER : THIS IS A VISIT SUMMARY EXTRACTED FROM THE [employer] CHART. IT IS NOT A COPY OF THE [employer] PROGRESS NOTE. MTDD
== END ==
LOC: M PAIN 15:30
PROVIDERS: ATTEND Anesthesiology
DX: M51.17 Intervertebral disc disorders with radiculopathy, lumbosacral region (principal); G43.709 Chronic migraine without aura, not intractable, without status migrainosus; M47.812 Spondylosis without myelopathy or radiculopathy, cervical region; M54.5 Low back pain; G89.29 Other chronic pain; I10 Essential (primary) hypertension; E11.9 Type 2 diabetes mellitus without complications; E07.9 Disorder of thyroid, unspecified; Z79.4 Long term (current) use of insulin; Z79.891 Long term (current) use of opiate analgesic; Z79.899 Other long term (current) drug therapy; Z88.1 Allergy status to other antibiotic agents; Z88.8 Allergy status to other drugs, medicaments and biological substances

== ENCOUNTER → 2017-08-07 | Outpatient (CLI) | payer OTHER ==
[~2017-08-07] MED LIST changes: +ISOVUE-M 300 61% 15ML VIAL (Q9967) As Ordered ONE; +LIDOCAINE 1% SDV INJ 30 ML VIAL As Ordered ONE; +diazePAM 5 MG TAB As Ordered ONE; +methylPREDNISolone SUSP 40 MG/ML (DEPO-medrol) VIAL (J1030) As Ordered ONE; +oxyCODONE 5MG TAB As Ordered ONE
--- NOTE | 2017-08-07 13:36 | REP ---
Partial lumbar spine series: Three views . History: Injection procedure for pain. 21 seconds of fluoroscopy time is reported. Findings: A sequence of three fluoroscopically obtained last image hold procedural spot radiographs of the lumbar spine document needle position and contrast injection associated with injection procedure. Signed by Jabari Rock MD 08/07/2017 01:28 P
--- NOTE | 2017-08-07 23:35 | ECWPNPC ---
PATIENT NAME: ALEX JI : 1965 GENDER: MALE VISIT DATE: 08/07/2017 DISCHARGE DATE: 08/07/171123 VISIT LOCKED DATE TIME: PHYSICIAN: JAVON LEONARDO RESOURCE: JAVON LEONARDO REASON FOR APPOINTMENT 1. LESI L4-L5 W/C HISTORY OF PRESENT ILLNESS HISTORY OF PRESENT ILLNESS: PAIN THE PATIENT DESCRIBES THE PAIN... FALL RISK SCREENING: SCREENING :NO FALLS IN THE PAST YEAR CURRENT MEDICATIONS TAKING ATENOLOL 50 MG TABLET 1 TABLET ORALLY BID, NOTES: 08/06/172199 TAKING HYZAAR 100-25 MG TABLET 1 TABLET ORALLY ONCE A DAY, NOTES: 08/07/17599 TAKING TRIAMTERENE-HCTZ 37.5-25 MG TABLET 1 TABLET IN THE MORNING ORALLY ONCE A DAY, NOTES: 08/07/17599 TAKING LEVOTHYROXINE SODIUM 50 MCG TABLET 1 TABLET ORALLY ONCE A DAY, NOTES: 08/06/17 1000 TAKING PINDOLOL 5 MG TABLET 1 TABLET ORALLY QID, NOTES: 08/07/17599 TAKING POTASSIUM CHLORIDE 10 MEQ (PRT) TABLET EXTENDED RELEASE 1 TABLET ORALLY ONCE A DAY, NOTES: 08/07/17599 TAKING METFORMIN HCL ER 750 MG TABLET EXTENDED RELEASE 24 HOUR ORALLY TWICE A DAY, NOTES: 08/06/172199 TAKING TOUJEO SOLOSTAR 300 UNIT/ML SOLUTION PEN-INJECTOR 10 UNITS SUBCUTANEOUS EVERY A M, NOTES: 08/06/17599 TAKING TOPAMAX 100 MG TABLET 1 TABLET ORALLY FOR PAIN TWICE A DAY, NOTES: 08/07/17599 TAKING PERCOCET 7.5-325 MG TABLET 1 ORALLY Q6H PRN MDD4, NOTES: 08/07/17599 TAKING SOMA 350 MG TABLET 1 TABLET NEEDED ORALLY 1 PER DAY NEEDED FOR SPASMS AND PAIN, NOTES: 08/06/172199 TAKING FENTANYL 50 MCG/HR PATCH 72 HOUR 1 PATCH TO SKIN TRANSDERMAL 1 PATCH Q72 HRS, NOTES: ON LEFT SHOULDER TAKING LYRICA 300 MG CAPSULE 1 CAPSULE ORALLY TWICE A DAY FOR PAIN, NOTES: 08/07/17599 TAKING KETOROLAC TROMETHAMINE 10 MG TABLET 1 TABLET WITH FOOD OR MILK NEEDED ORALLY EVERY 6 HRS NEEDED FOR PAIN MDD3, NOTES: > 1 WEEK TAKING AMITRIPTYLINE HCL 50 MG TABLET 3 ORALLY FOR PAIN ONCE A DAY, NOTES: 08/06/17 2200 TAKING ROBAXIN-750 750 MG TABLET 1 TABLET ORALLY EVERY 4 HRS PRN FOR SPASMS AND PAIN MDD3, NOTES: 08/07/17 0600 TAKING COLACE 100 MG CAPSULE 1 CAPSULE NEEDED ORALLY ONCE A DAY, NOTES: 08/06/17 220 NOT-TAKING CYCLOBENZAPRINE HCL 10 MG TABLET 1 TABLET NEEDED ORALLY THREE TIMES A DAY NOT-TAKING FLONASE 50 MCG/ACT SUSPENSION 1 SPRAY IN EACH NOSTRIL NASALLY ONCE A DAY MEDICATION LIST REVIEWED AND RECONCILED WITH THE PATIENT PAST MEDICAL HISTORY DM, HTN, CHRONIC PAIN , THYROID DISEASE, GERD, MIGRANES ALLERGIES AZITHROMYCIN: LIP SWELLING: ALLERGY SUMATRIPTAN: FACIAL SWELLING: ALLERGY PROPOXYPHENE: PRICKLY FEELING, RASH, SOB: ALLERGY REVIEW OF SYSTEMS REVIEWED BY: PROVIDER: . CONSTITUTIONAL: ANY CHANGE IN YOUR MEDICAL CONDITION? NO . CHILLS NO . FEVER NO . INFECTION: DO YOU HAVE NEW INFECTIONS? NO . DO YOU HAVE HISTORY OF MRSA? NO . MUSCULOSKELETAL: ANY NEW PATTERNS OF PAIN OR NUMBNESS? NO . GASTROENTEROLOGY: ANY NEW CHANGE IN BOWEL CONTROL? NO . GENITOURINARY: ANY NEW CHANGE IN BLADDER CONTROL? NO . IS THERE A CHANCE YOU COULD BE ? NO . HEMATOLOGY/LYMPH: DO YOU TAKE ANY BLOOD THINNERS? (FOR EXAMPLE- COUMADIN, PLAVIX, AGGRENOX, PLATEL, PRADAXA, OR XARELTO) NO . WHEN WAS YOUR LAST DOSE? DATE: TIME: . NEUROLOGY: HAVE YOU FALLEN IN THE PAST 6 MONTHS? YES LEGS BUCKLE AT TIMES, USES KNEE BRACE AND WALKING STICK. LAST FALL WAS TWO DAYS AGO, NO INJURIES SUSTAINED PER PT, NO ED VISIT, NO XRAYS. . ANY NEW EXTREMITY NUMBNESS OR WEAKNESS? NO . CARDIOLOGY: DO YOU HAVE A PACEMAKER OR DEFIBRILLATOR? NO . RESPIRATORY: HAVE YOU BEEN SICK IN THE PAST WEEK? NO . FEVER NO . FLU LIKE SYMPTOMS? NO . COUGH NO . INTEGUMENTARY: DO YOU HAVE ANY RASHES OR OPEN SORES? NO . ALLERGIC/IMMUNO: ARE YOU ALLERGIC TO SHELLFISH OR IV DYE? NO . ANY NEW ALLERGIES? NO . PSYCHIATRIC: DO YOU HAVE THOUGHTS OF HURTING YOURSELF OR SOMEONE ELSE? NO . ARE YOU ABUSED, NEGLECTED, OR IN AN UNSAFE ENVIRONMENT? NO . ENDOCRINOLOGY: ARE YOU DIABETIC? YES . OTHER: DO YOU NEED ANY PRESCRIPTIONS? NO . IF YES, PLEASE LIST: ____ . ANY NEW PROBLEMS WITH YOUR MEDICATIONS? NO . WHEN DID YOU LAST EAT? ____08/06/172399 . WHEN DID YOU LAST DRINK? ____08/06/172399 . WHAT DID YOU LAST DRINK? ____WATER . NAME OF PERSON DRIVING YOU HOME? ____KATE . DO YOU HAVE ANY OTHER QUESTIONS OR CONCERNS NO . VITAL SIGNS WT 330 LBS, HT 75 IN, BMI 41.24 INDEX, BP 168/87 MM HG, HR 82 /MIN, RR 20 /MIN, TEMP 98.0 F, OXYGEN SAT % 95%, NA INITIALS AW 0909, REVIEWED BY: ASSESSMENTS INTERVERTEBRAL DISC DISORDER WITH RADICULOPATHY OF LUMBAR REGION - M51.16 (PRIMARY) PROCEDURES PRE PROCEDURE DIAGNOSIS LUMBAR DISC DISORDER WITH RADICULOPATHY POST PROCEDURE DIAGNOSIS LUMBAR DISC DISORDER WITH RADICULOPATHY PROCEDURE LUMBAR EPIDURAL STEROID INJECTION UNDER FLUOROSCOPIC GUIDANCE SURGEON DR. JAVON LEONARDO TRANSITIONS MANAGER RN NONE ANESTHESIA LOCAL PRE PROCEDURE NOTE THE PATIENT HAS A HISTORY OF CHRONIC LOW BACK PAIN. I EVALUATE THE PATIENT AND REVIEWED THE CHART. I WENT OVER THE RISKS, ALTERNATIVES, AND BENEFITS ASSOCIATED WITH THIS PROCEDURE. THE PATIENT WOULD LIKE TO PROCEED AND GIVE CONSENT TO PERFORMED THE PROCEDURE. THE PATIENT DENIES UNEXPLAINABLE WEIGHT LOSS, FEVER, CHILLS, OR NEW CHANGES IN URINARY OR BOWEL CONTROL. DESCRIPTION OF PROCEDURE THE PATIENT WAS BROUGHT TO THE PROCEDURE ROOM AND PLACED IN THE PRONE POSITION. THE LUMBOSACRAL AREA WAS CLEANED WITH BETADINE SOLUTION AND DRAPED ASEPTICALLY. THE PROCEDURE WAS DONE UNDER STERILE CONDITIONS. I CHECKED LATERALITY AND THE LEVEL WHERE THE PROCEDURE WAS GOING TO BE PERFORMED WITH THE PATIENT AND THE SUPPORTING STAFF AT THE MOMENT OF THE TIME OUT IN THE PROCEDURE ROOM. UNDER FLUOROSCOPIC GUIDANCE, THE TARGET POINT WAS SELECTED AT THE INTERLAMINAR LEVEL OF L4-L5. LIDOCAINE WAS USED TO NUMB THE SKIN AND THE SUBCUTANEOUS TISSUE BELOW IT. EPIDURAL TUOHY NEEDLE, 17-GAUGE, WAS ADVANCED UNDER FLUOROSCOPIC GUIDANCE AND FOLLOWING PATIENT FEEDBACK UNTIL THE EPIDURAL SPACE WAS REACHED, 7 CM DEEP INTO THE SKIN BY THE LOSS OF RESISTANCE TECHNIQUE. ISOVUE M DYE 30%, 0.25 ML, WAS INJECTED SHOWING ADEQUATE SPREAD OF THE DYE. THEN, A SOLUTION OF 3 ML OF NORMAL SALINE WITH DEPO-MEDROL 60 MG WAS INJECTED SLOWLY FOLLOWING PATIENT FEEDBACK. THERE WAS NO EVIDENCE OF BLOOD, PARESTHESIA OR CEREBROSPINAL FLUID DURING THE PROCEDURE. THE PATIENT WAS SENT TO THE RECOVERY ROOM. THE PATIENT WAS MOVING THE EXTREMITIES AND DOING WELL. THERE WAS NO COMPLICATION DURING THE PROCEDURE. FLUOROSCOPY TIME WAS 21 SECONDS. POST PROCEDURE NOTE THE PATIENT WILL BE SEEN IN A FOLLOW UP IN THE NEXT FEW WEEKS. INSTRUCTIONS WERE GIVEN, QUESTIONS WERE ANSWERED, AND THE PATIENT EXPRESSED UNDERSTANDING AND AGREES WITH THE PLAN. I, ADELAIDA SANDERS, DOCUMENTED THE ABOVE INFORMATION ACTING A SCRIBE FOR DR. LEONARDO. I HAVE REVIEWED THE ABOVE DOCUMENT, WRITTEN BY ADELAIDA DICKIBAlanna AND I VERIFY THAT IT IS ACCURATE PN WORKMANS' COMP OPINION IN YOUR OPINION, WAS THE INCIDENT THAT THE PATIENT DESCRIBED THE COMPETENT MEDICAL CAUSE OF THIS INJURY/ILLNESS? YES ARE THE PATIENT'S COMPLAINTS CONSISTENT WITH HIS/HER HISTORY OF THE INJURY/ILLNESS? YES IS THE PATIENT'S HISTORY OF THE INJURY/ILLNESS CONSISTENT WITH YOUR OBJECTIVE FINDING? YES WHAT IS THE PERCENTAGE OF TEMPORARY IMPAIRMENT? TOTAL = 100% IS THE PATIENT WORKING? NO DOCTOR ON SITE: JAVON VALDEZ MD DIAGNOSTIC IMAGING [facility] FLUORO GUIDE SPINE INJECTION (PAIN)[id number] PROCEDURE CODES 90134 LUMBAR/SACRAL W/ IMAGING 6045F RADXPS IN END [id number] PXD DISPOSITION & COMMUNICATION FOLLOW UP 3 WEEKS ELECTRONICALLY SIGNED BY JAVON LEONARDO MD ON 08/07/2017 AT 05:51 PM EDT DISCLAIMER : THIS IS A VISIT SUMMARY EXTRACTED FROM THE [employer] CHART. IT IS NOT A COPY OF THE [employer] PROGRESS NOTE. MTDShiloh
== END ==
LOC: M PAIN 08:45
PROVIDERS: ATTEND Anesthesiology
DX: G89.29 Other chronic pain (principal); M51.16 Intervertebral disc disorders with radiculopathy, lumbar region; G43.709 Chronic migraine without aura, not intractable, without status migrainosus; E11.9 Type 2 diabetes mellitus without complications; I10 Essential (primary) hypertension; E07.9 Disorder of thyroid, unspecified; Z88.1 Allergy status to other antibiotic agents; Z88.8 Allergy status to other drugs, medicaments and biological substances; Z79.4 Long term (current) use of insulin; Z79.891 Long term (current) use of opiate analgesic; Z79.899 Other long term (current) drug therapy
CPT/HCPCS: 62323; J1030; Q9967

== ENCOUNTER → 2017-08-30 | Outpatient (CLI) | payer OTHER ==
[~2017-08-30] MED LIST changes: -ISOVUE-M 300 61% 15ML VIAL (Q9967) As Ordered ONE; -LIDOCAINE 1% SDV INJ 30 ML VIAL As Ordered ONE; -diazePAM 5 MG TAB As Ordered ONE; -methylPREDNISolone SUSP 40 MG/ML (DEPO-medrol) VIAL (J1030) As Ordered ONE; -oxyCODONE 5MG TAB As Ordered ONE
--- NOTE | 2017-09-25 02:04 | ECWPNPC ---
PATIENT NAME: ALEX JI : 1965 GENDER: MALE VISIT DATE: 08/30/2017 DISCHARGE DATE: 08/30/17 1606 VISIT LOCKED DATE TIME: PHYSICIAN: BLANE EUGENE RESOURCE: BLANE EUGENE REASON FOR APPOINTMENT 1. POST BOTOX HISTORY OF PRESENT ILLNESS HISTORY OF PRESENT ILLNESS: PAIN THE PATIENT DESCRIBES THE PAIN... THE PATIENT DESCRIBES THE PAIN... 51 YEAR OLD MALE PATIENT HERE FOR POST PROCEDURE F/U. HISTORY OF CHRONIC NECK, BACK, AND HEAD PAIN.HAD L3/4-L4/5 LESI ON 08-07-17.REPORTS >50% IMPROVEMENT IN PAIN X3 WEEKS THEN PAIN HAS GRADUALLY RETURNED TO BASELINE.PATIENT DESCRIBES THE PAIN TENDER, THROBBING, SORE, AND HAVING IT ALL THE TIME WITH A PAIN SCORE OF 7.5/10 ON TODAY'S VISIT. PATIENT WAS INJURED IN A WORK RELATED INJURY ON 04/13/1988 WORKING FOR [employer].HE WAS TIEING DOWN A ROLL OF CARPET WHEN ANOTHER ROLL OF CARPET FELL ON HIM, INJURING HIS NECK, BACK, AND HEAD. PATIENT RECEIVED BOTOX INJECTION FOR MIGRAINES ON 07/11/17 AND STATES THAT HE IS FEELING RELIEF FROM THE HEADACHES BUT HEADACHE FREQUENCY IS BEGINING TO BE MORE FREQUENT . CURRENTLY THE PATIENT IS USING AMITRIPTYLINE, LYRICA, SOMA, ROBAXIN, COLACE, TOPAMAX AND SOMA AND THE PATIENT STATES THAT WITHOUT THESE MEDICATIONS HE WOULD NOT BE ABLE TO FUNCTION/. PATIENT DENIES UNEXPLAINABLE WEIGHT LOSS, FEVER, CHILLS, NEW CHANGES ON HIS URINARY OR BOWEL CONTROL. FALL RISK SCREENING: SCREENING :NO FALLS IN THE PAST YEAR CURRENT MEDICATIONS TAKING ATENOLOL 50 MG TABLET 1 TABLET ORALLY BID TAKING HYZAAR 100-25 MG TABLET 1 TABLET ORALLY ONCE A DAY TAKING TRIAMTERENE-HCTZ 37.5-25 MG TABLET 1 TABLET IN THE MORNING ORALLY ONCE A DAY TAKING LEVOTHYROXINE SODIUM 50 MCG TABLET 1 TABLET ORALLY ONCE A DAY TAKING PINDOLOL 5 MG TABLET 1 TABLET ORALLY QID TAKING POTASSIUM CHLORIDE 10 MEQ (PRT) TABLET EXTENDED RELEASE 1 TABLET ORALLY ONCE A DAY TAKING METFORMIN HCL ER 750 MG TABLET EXTENDED RELEASE 24 HOUR ORALLY TWICE A DAY TAKING TOUJEO SOLOSTAR 300 UNIT/ML SOLUTION PEN-INJECTOR 10 UNITS SUBCUTANEOUS EVERY A M TAKING TOPAMAX 100 MG TABLET 1 TABLET ORALLY FOR PAIN TWICE A DAY TAKING PERCOCET 7.5-325 MG TABLET 1 ORALLY Q6H PRN MDD4 TAKING SOMA 350 MG TABLET 1 TABLET NEEDED ORALLY 1 PER DAY NEEDED FOR SPASMS AND PAIN TAKING FENTANYL 50 MCG/HR PATCH 72 HOUR 1 PATCH TO SKIN TRANSDERMAL 1 PATCH Q72 HRS TAKING LYRICA 300 MG CAPSULE 1 CAPSULE ORALLY TWICE A DAY FOR PAIN TAKING KETOROLAC TROMETHAMINE 10 MG TABLET 1 TABLET WITH FOOD OR MILK NEEDED ORALLY EVERY 6 HRS NEEDED FOR PAIN MDD3 TAKING AMITRIPTYLINE HCL 50 MG TABLET 3 ORALLY FOR PAIN ONCE A DAY TAKING ROBAXIN-750 750 MG TABLET 1 TABLET ORALLY EVERY 4 HRS PRN FOR SPASMS AND PAIN MDD3 TAKING COLACE 100 MG CAPSULE 1 CAPSULE NEEDED ORALLY ONCE A DAY NOT-TAKING CYCLOBENZAPRINE HCL 10 MG TABLET 1 TABLET NEEDED ORALLY THREE TIMES A DAY NOT-TAKING FLONASE 50 MCG/ACT SUSPENSION 1 SPRAY IN EACH NOSTRIL NASALLY ONCE A DAY MEDICATION LIST REVIEWED AND RECONCILED WITH THE PATIENT PAST MEDICAL HISTORY DM, HTN, CHRONIC PAIN , THYROID DISEASE, GERD, MIGRANES ALLERGIES AZITHROMYCIN: LIP SWELLING: ALLERGY SUMATRIPTAN: FACIAL SWELLING: ALLERGY PROPOXYPHENE: PRICKLY FEELING, RASH, SOB: ALLERGY SURGICAL HISTORY FUSION C3-C4 1994 3 SURGURIES TO LEFT KNEE 1993 SOCIAL HISTORY GENERAL: TOBACCO USE ARE YOU A:NONSMOKER LUNG CANCER SCREENING SMOKING STATUS:NON SMOKER ALCOHOL SCREENING POINTS0 INTERPRETATIONNEGATIVE YARSANISM RELNYVQT19 GNOSTICIST LANGUAGE LANGUAGES SPOKEN:JAPANESE LEARNING BARRIERS / SPECIAL NEEDS BARRIERS TO LEARNING?NO HEARING IMPAIRED?NO VISION IMPAIRED?YES :CORRECTIVE LENSES COGNITIVELY IMPAIRED?NO READINESS TO LEARN?YES LEARNING PREFERENCES?YES :BOOKLETS, HANDOUTS SPECIAL DEVICES?YES :OTHER PAIN CLINIC PFS, CLERGY, PUBLIC HEALTH REFERRALS PFS REFERRAL NEEDED?NO CLERGY REFERRAL NEEDED?NO PUBLIC HEALTH REFERRAL NEEDED?NO WAS THE PROVIDER NOTIFIED OF ANY PERTINENT INFO?NO HAS THE PATIENT BEEN EDUCATED REGARDING HIS/HER PLAN OF CARE?YES HAS THE PATIENT BEEN EDUCATED REGARDING PAIN, THE RISK FOR PAIN, THE IMPORTANCE OF EFFECTIVE PAIN MANAGEMENT, AND THE PAIN ASSESSMENT PROCESS?YES PATIENT: ____. 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 SHE MARIEKES, HOSPITALIZATION/MAJOR DIAGNOSTIC PROCEDURE SURGERIES HYPERTENSION HEAD INJURY 03/1986 REVIEW OF SYSTEMS REVIEWED BY: PROVIDER: BLANE ACKERMAN . CONSTITUTIONAL: ANY CHANGE IN YOUR MEDICAL CONDITION? NO . CHILLS NO . FEVER NO . INFECTION: DO YOU HAVE NEW INFECTIONS? NO . DO YOU HAVE HISTORY OF MRSA? NO . MUSCULOSKELETAL: ANY NEW PATTERNS OF PAIN OR NUMBNESS? NO, PT STATES CERVICAL FACET BLOCK DX DONE 05/14/17. PRE PROCEDURE PAIN WAS 8/10, POST PROCEDURE PAIN WAS 4/10. TODAY PAIN IS 7.5/10 . GASTROENTEROLOGY: ANY NEW CHANGE IN BOWEL CONTROL? NO . GENITOURINARY: ANY NEW CHANGE IN BLADDER CONTROL? NO . IS THERE A CHANCE YOU COULD BE ? NO . HEMATOLOGY/LYMPH: DO YOU TAKE ANY BLOOD THINNERS? (FOR EXAMPLE- COUMADIN, PLAVIX, AGGRENOX, PLATEL, PRADAXA, OR XARELTO) NO . WHEN WAS YOUR LAST DOSE? DATE: TIME: . NEUROLOGY: HAVE YOU FALLEN IN THE PAST 6 MONTHS? YES, PT STATES HE FALLS FREQUENTLY FROM KNEES BUCKELING. PT STATES HE DID SEEK MEDICAL TX FOR INJURIES AND IS CURRENTLY UNDER ORTHO CARE . ANY NEW EXTREMITY NUMBNESS OR WEAKNESS? NO . CARDIOLOGY: DO YOU HAVE A PACEMAKER OR DEFIBRILLATOR? NO . RESPIRATORY: HAVE YOU BEEN SICK IN THE PAST WEEK? NO . FEVER NO . FLU LIKE SYMPTOMS? NO . COUGH NO . INTEGUMENTARY: DO YOU HAVE ANY RASHES OR OPEN SORES? NO . ALLERGIC/IMMUNO: ARE YOU ALLERGIC TO SHELLFISH OR IV DYE? NO . ANY NEW ALLERGIES? NO . PSYCHIATRIC: DO YOU HAVE THOUGHTS OF HURTING YOURSELF OR SOMEONE ELSE? NO . ARE YOU ABUSED, NEGLECTED, OR IN AN UNSAFE ENVIRONMENT? NO . ENDOCRINOLOGY: ARE YOU DIABETIC? YES . OTHER: DO YOU NEED ANY PRESCRIPTIONS? YES, FENTANYL, OXYCODONES, SOMA . IF YES, PLEASE LIST: ____ . ANY NEW PROBLEMS WITH YOUR MEDICATIONS? NO . WHEN DID YOU LAST EAT? ____ . WHEN DID YOU LAST DRINK? ____ . WHAT DID YOU LAST DRINK? ____ . NAME OF PERSON DRIVING YOU HOME? ____ . DO YOU HAVE ANY OTHER QUESTIONS OR CONCERNS NO . VITAL SIGNS WT 330 LBS, HT 75 IN, BMI 41.24 INDEX, BP 138/77 MM HG, HR 78 /MIN, RR 18 /MIN, TEMP 97.8 F, OXYGEN SAT % 91%, NA INITIALS SC 15:12, REVIEWED BY: EM. EXAMINATION GENERAL EXAMINATION: LUNGS:LUNG SOUNDS ARE CLEAR. HEART:HEART RATE REGULAR. MUSCULOSKELETAL:*. LUMBAR SACRAL SPINEMUSCLE STRENGTH TESTING 3/5 BILATERAL. PALPATION: POSITIVE FOR PAIN OVER L/S SPINE. POSITIVE FOR PAIN OVER L/S PARSPINALS. MULTIPLE TRIGGER POINTS ELICITED NECK AND TRAPEZIUS BILAT.. DIAGNOSTIC: . ASSESSMENTS SPONDYLOSIS WITHOUT MYELOPATHY OR RADICULOPATHY, CERVICAL REGION - M47.812 (PRIMARY) MYALGIA - M79.1 (PRIMARY) INTERVERTEBRAL DISC DISORDER WITH RADICULOPATHY OF LUMBOSACRAL REGION - M51.17 (PRIMARY) INTRACTABLE CHRONIC MIGRAINE WITHOUT AURA AND WITHOUT STATUS MIGRAINOSUS - G43.719 TREATMENT SPONDYLOSIS WITHOUT MYELOPATHY OR RADICULOPATHY, CERVICAL REGION CONTINUE TOPAMAX TABLET, 100 MG, 1 TABLET, ORALLY FOR PAIN, TWICE A DAY REFILL PERCOCET TABLET, 7.5-325 MG, 1, ORALLY, Q6H PRN MDD4, 30 DAY(S), 100, REFILLS 0 REFILL SOMA TABLET, 350 MG, 1 TABLET NEEDED, ORALLY, 1 PER DAY NEEDED FOR SPASMS AND PAIN, 30 DAY(S), 30, REFILLS 0 REFILL FENTANYL PATCH 72 HOUR, 50 MCG/HR, 1 PATCH TO SKIN, TRANSDERMAL, 1 PATCH Q72 HRS, 30 DAYS, 10, REFILLS 0 CONTINUE LYRICA CAPSULE, 300 MG, 1 CAPSULE, ORALLY, TWICE A DAY FOR PAIN CONTINUE AMITRIPTYLINE HCL TABLET, 50 MG, 3, ORALLY FOR PAIN, ONCE A DAY CONTINUE ROBAXIN-750 TABLET, 750 MG, 1 TABLET, ORALLY, EVERY 4 HRS PRN FOR SPASMS AND PAIN MDD3 CONTINUE COLACE CAPSULE, 100 MG, 1 CAPSULE NEEDED, ORALLY, ONCE A DAY CONTINUE CYCLOBENZAPRINE HCL TABLET, 10 MG, 1 TABLET NEEDED, ORALLY, THREE TIMES A DAY NOTES: ISTOP REGISTRY REVIEWED [id number] AND DEMNOSTRATES COMPLLIANCE. BRINGS IN MEDICATIONS WHICH IS APPROPRIATE FOR WHAT WAS DISPENSED. RECENT URINE TOXICOLOGY REVIEWED. NO UNAUTHORIZED MEDICATIONS. NO ILLICIT SUBSTANCES AND PRESCRIBED MEDICATIONS WERE PRESENT. , RISKS AND BENEFITS OF NARCOTIC/OPIOD MEDICATIONS WERE REVIEWED WITH PATIENT - THIS INCLUDES BUT IS NOT LIMITED TO RISK OF DEPENDANCE/DEVELOPMENT OF ADDICTION, MOOD DISTURBANCE AND DEPRESSION, OSTEOPOROSIS, HORMONAL AND LABIDAL CHANGES, RESPIRATORY DEPRESSION AND . PATIENT IS ADVISED NOT TO DRIVE WHILE ON THESE MEDICATIONSREQUEST W/C-L3/4-L4/5 LESIREQUEST W/C BOTOX. PROCEDURES PN WORKMANS' COMP OPINION IN YOUR OPINION, WAS THE INCIDENT THAT THE PATIENT DESCRIBED THE COMPETENT MEDICAL CAUSE OF THIS INJURY/ILLNESS? YES IN YOUR OPINION, WAS THE INCIDENT THAT THE PATIENT DESCRIBED THE COMPETENT MEDICAL CAUSE OF THIS INJURY/ILLNESS? YES ARE THE PATIENT'S COMPLAINTS CONSISTENT WITH HIS/HER HISTORY OF THE INJURY/ILLNESS? YES ARE THE PATIENT'S COMPLAINTS CONSISTENT WITH HIS/HER HISTORY OF THE INJURY/ILLNESS? YES IS THE PATIENT'S HISTORY OF THE INJURY/ILLNESS CONSISTENT WITH YOUR OBJECTIVE FINDING? YES IS THE PATIENT'S HISTORY OF THE INJURY/ILLNESS CONSISTENT WITH YOUR OBJECTIVE FINDING? YES WHAT IS THE PERCENTAGE OF TEMPORARY IMPAIRMENT? MARKED = 75% WHAT IS THE PERCENTAGE OF TEMPORARY IMPAIRMENT? MARKED = 75% IS THE PATIENT WORKING? NO , NO IS THE PATIENT WORKING? NO , NO DOCTOR ON SITE: JAVON VALDEZ MD DOCTOR ON SITE: JAVON VALDEZ MD PROCEDURE CODES FA211 ESTABILISHED PATIENT [facility] FACILITY CHARGE DISPOSITION & COMMUNICATION FOLLOW UP 4 WEEKS (REASON: REQUEST W/C-L3/4-L4/5 LESI REQUEST W/C BOTOX) ELECTRONICALLY SIGNED BY MEKA PRESLEY ON 09/24/2017 AT 12:15 PM EST DISCLAIMER : THIS IS A VISIT SUMMARY EXTRACTED FROM THE [employer] CHART. IT IS NOT A COPY OF THE [employer] PROGRESS NOTE. NAHEED
== END ==
LOC: M PAIN 14:30
PROVIDERS: ATTEND Nurse Practitioner Family
DX: M47.812 Spondylosis without myelopathy or radiculopathy, cervical region (principal); M79.1 Myalgia; M51.17 Intervertebral disc disorders with radiculopathy, lumbosacral region; G43.719 Chronic migraine without aura, intractable, without status migrainosus; E11.9 Type 2 diabetes mellitus without complications; I10 Essential (primary) hypertension; E07.9 Disorder of thyroid, unspecified; K21.9 Gastro-esophageal reflux disease without esophagitis; Z79.4 Long term (current) use of insulin; Z79.891 Long term (current) use of opiate analgesic; Z79.899 Other long term (current) drug therapy; Z88.1 Allergy status to other antibiotic agents; Z88.8 Allergy status to other drugs, medicaments and biological substances; Z91.81 History of falling

== ENCOUNTER → 2017-10-04 | Outpatient (CLI) | payer OTHER ==
[~2017-10-04] MED LIST changes: -/BACL20TA; -/BACL20TA OR; -/CELE20CA PO; -/FENT25PA TD; -AMBI10TA PO; -AMIT25TA2 OR; -AMIT50TA PO; -AMIT50TA2 OR; -ATEN50TA2; -ATEN50TA2 OR; +BOTULINUM INJ 100 UNITS (J0585) IM; -COLA100C2; -COLA100C2 OR; -DURAGESIC PATCH; -FISH1000 PO; -FLON0.05; -HYZAAR; -HYZAAR OR; -KETO-28; -KETO-28 OR; -LEVO25TABR PO; -LYRI200C; -LYRI200C OR; -LYRI300C OR; -NORT25CA2; -NORT25CA2 OR; -OXYC10TA56; -PERC5TAB8; -PERC5TAB8 OR; -PINDOLOL; -PINDOLOL OR; -POTASSIUM PO; -ROBA750T OR; -SKEL800T5 OR; -SOMA350T PO; -TOPI100T; -TOPI100T OR; -TOPI200T; -TOPOMAX OR; -TORA; -TORADOL; -TORADOL IM; -TRIA37.53 PO; -VALI5TAB OR; -VOLT1GEL TOP; -[UNRECOGNIZED DRUG - OTHER] OR; +diazePAM 5 MG TAB As Ordered; +oxyCODONE 5MG TAB As Ordered
== END ==
LOC: M PAIN 13:00
DX: G43.709 Chronic migraine without aura, not intractable, without status migrainosus (principal); E11.9 Type 2 diabetes mellitus without complications; I10 Essential (primary) hypertension; E03.9 Hypothyroidism, unspecified; Z79.891 Long term (current) use of opiate analgesic; Z79.899 Other long term (current) drug therapy; Z79.4 Long term (current) use of insulin; Z88.1 Allergy status to other antibiotic agents; Z88.8 Allergy status to other drugs, medicaments and biological substances
CPT/HCPCS: 64615; J0585

== ENCOUNTER → 2017-10-23 | Outpatient (CLI) | payer OTHER | LOC: M PAIN 13:45 | DX: G89.29 Other chronic pain (principal); M47.812 Spondylosis without myelopathy or radiculopathy, cervical region; G43.719 Chronic migraine without aura, intractable, without status migrainosus; M51.17 Intervertebral disc disorders with radiculopathy, lumbosacral region; E11.9 Type 2 diabetes mellitus without complications; I10 Essential (primary) hypertension; K21.9 Gastro-esophageal reflux disease without esophagitis; Z88.8 Allergy status to other drugs, medicaments and biological substances; Z79.84 Long term (current) use of oral hypoglycemic drugs; Z79.891 Long term (current) use of opiate analgesic; Z79.899 Other long term (current) drug therapy; Z98.1 Arthrodesis status | CPT/HCPCS: G0463 ==

== ENCOUNTER → 2017-11-14 | Outpatient (CLI) | payer OTHER ==
[~2017-11-14] MED LIST changes: -BOTULINUM INJ 100 UNITS (J0585) IM; +ISOVUE-M 300 61% 15ML VIAL (Q9967) As Ordered; +LIDOCAINE 1% SDV INJ 30 ML VIAL As Ordered; +methylPREDNISolone SUSP 40 MG/ML (DEPO-medrol) VIAL (J1030) As Ordered
== END ==
LOC: M PAIN 08:30
DX: G89.29 Other chronic pain (principal); M54.5 Low back pain; E11.9 Type 2 diabetes mellitus without complications; I10 Essential (primary) hypertension; E07.9 Disorder of thyroid, unspecified; G43.909 Migraine, unspecified, not intractable, without status migrainosus; Z79.84 Long term (current) use of oral hypoglycemic drugs; Z79.891 Long term (current) use of opiate analgesic; Z79.899 Other long term (current) drug therapy; Z88.1 Allergy status to other antibiotic agents; Z88.8 Allergy status to other drugs, medicaments and biological substances
CPT/HCPCS: J1030

== ENCOUNTER → 2017-12-24 | Outpatient (CLI) | payer OTHER | LOC: M PAIN 10:45 | DX: M51.16 Intervertebral disc disorders with radiculopathy, lumbar region (principal); M47.812 Spondylosis without myelopathy or radiculopathy, cervical region; M79.1 Myalgia; E11.9 Type 2 diabetes mellitus without complications; I10 Essential (primary) hypertension; E07.9 Disorder of thyroid, unspecified; G43.719 Chronic migraine without aura, intractable, without status migrainosus; Z79.84 Long term (current) use of oral hypoglycemic drugs; Z79.891 Long term (current) use of opiate analgesic; Z79.899 Other long term (current) drug therapy; Z88.1 Allergy status to other antibiotic agents; Z88.8 Allergy status to other drugs, medicaments and biological substances | CPT/HCPCS: G0463 ==

== ENCOUNTER → 2018-01-03 | Outpatient (CLI) | payer OTHER ==
[~2018-01-03] MED LIST changes: +BOTULINUM INJ 100 UNITS (J0585) IM; -ISOVUE-M 300 61% 15ML VIAL (Q9967) As Ordered; -LIDOCAINE 1% SDV INJ 30 ML VIAL As Ordered; -methylPREDNISolone SUSP 40 MG/ML (DEPO-medrol) VIAL (J1030) As Ordered
== END ==
LOC: M PAIN 12:30
DX: G43.709 Chronic migraine without aura, not intractable, without status migrainosus (principal); E11.9 Type 2 diabetes mellitus without complications; I10 Essential (primary) hypertension; E07.9 Disorder of thyroid, unspecified; Z79.84 Long term (current) use of oral hypoglycemic drugs; Z79.891 Long term (current) use of opiate analgesic; Z79.899 Other long term (current) drug therapy; Z88.0 Allergy status to penicillin
CPT/HCPCS: J0585

== ENCOUNTER → 2018-01-24 | Outpatient (CLI) | payer OTHER, MEDICARE | LOC: M PAIN 13:15 | DX: G89.29 Other chronic pain (principal); G43.709 Chronic migraine without aura, not intractable, without status migrainosus; E11.9 Type 2 diabetes mellitus without complications; I10 Essential (primary) hypertension; K21.9 Gastro-esophageal reflux disease without esophagitis; E07.9 Disorder of thyroid, unspecified; Z98.1 Arthrodesis status; Z79.891 Long term (current) use of opiate analgesic; Z79.899 Other long term (current) drug therapy; Z88.1 Allergy status to other antibiotic agents; Z88.8 Allergy status to other drugs, medicaments and biological substances | CPT/HCPCS: G0463 ==

== ENCOUNTER → 2018-03-26 | Outpatient (CLI) | payer OTHER | LOC: M PAIN 10:15 | DX: Z53.29 Procedure and treatment not carried out because of patient's decision for other reasons (principal) ==

== ENCOUNTER → 2018-04-08 | Outpatient (CLI) | payer OTHER | LOC: M PAIN 12:30 | DX: G43.709 Chronic migraine without aura, not intractable, without status migrainosus (principal); E11.9 Type 2 diabetes mellitus without complications; I10 Essential (primary) hypertension; E07.9 Disorder of thyroid, unspecified; G43.909 Migraine, unspecified, not intractable, without status migrainosus; Z79.84 Long term (current) use of oral hypoglycemic drugs; Z79.891 Long term (current) use of opiate analgesic; Z79.899 Other long term (current) drug therapy; Z88.1 Allergy status to other antibiotic agents; Z88.8 Allergy status to other drugs, medicaments and biological substances | CPT/HCPCS: J0585 ==

== ENCOUNTER → 2018-06-04 | Outpatient (CLI) | payer OTHER | LOC: M PAIN 11:45 | DX: M51.16 Intervertebral disc disorders with radiculopathy, lumbar region (principal); G43.709 Chronic migraine without aura, not intractable, without status migrainosus; M79.1 Myalgia; M54.2 Cervicalgia; E11.9 Type 2 diabetes mellitus without complications; I10 Essential (primary) hypertension; E03.9 Hypothyroidism, unspecified; K21.9 Gastro-esophageal reflux disease without esophagitis; Z79.82 Long term (current) use of aspirin; Z79.891 Long term (current) use of opiate analgesic; Z79.899 Other long term (current) drug therapy; Z88.8 Allergy status to other drugs, medicaments and biological substances | CPT/HCPCS: G0463 ==

== ENCOUNTER → 2018-06-28 | Outpatient (CLI) | payer OTHER | LOC: M PLARAD 08:13 | DX: M25.562 Pain in left knee (principal); Z53.9 Procedure and treatment not carried out, unspecified reason ==

== ENCOUNTER → 2018-08-20 | Outpatient (CLI) | payer OTHER | LOC: M PAIN 11:45 | DX: M51.16 Intervertebral disc disorders with radiculopathy, lumbar region (principal); G43.809 Other migraine, not intractable, without status migrainosus; E11.9 Type 2 diabetes mellitus without complications; I10 Essential (primary) hypertension; E07.9 Disorder of thyroid, unspecified; K21.9 Gastro-esophageal reflux disease without esophagitis; Z98.1 Arthrodesis status; Z79.84 Long term (current) use of oral hypoglycemic drugs; Z79.899 Other long term (current) drug therapy; Z79.891 Long term (current) use of opiate analgesic; Z88.8 Allergy status to other drugs, medicaments and biological substances; Z88.1 Allergy status to other antibiotic agents | CPT/HCPCS: G0463 ==

== ENCOUNTER → 2018-09-27 | Outpatient (CLI) | payer OTHER ==
[~2018-09-27] MED LIST changes: +/BACL20TA; +/BACL20TA OR; +/CELE20CA PO; +/FENT25PA TD; +AMBI10TA PO; +AMIT25TA2 OR; +AMIT50TA PO; +AMIT50TA2 OR; +ATEN50TA2; +ATEN50TA2 OR; -BOTULINUM INJ 100 UNITS (J0585) IM; +COLA100C2; +COLA100C2 OR; +DURAGESIC PATCH; +FISH1000 PO; +FLON0.05; +HYZAAR; +HYZAAR OR; +KETO-28; +KETO-28 OR; +LEVO25TABR PO; +LYRI200C; +LYRI200C OR; +LYRI300C OR; +NORT25CA2; +NORT25CA2 OR; +OXYC10TA56; +PERC5TAB8; +PERC5TAB8 OR; +PINDOLOL; +PINDOLOL OR; +POTASSIUM PO; +ROBA750T OR; +SKEL800T5 OR; +SOMA350T PO; +TOPI100T; +TOPI100T OR; +TOPI200T; +TOPOMAX OR; +TORA; +TORADOL; +TORADOL IM; +TRIA37.53 PO; +VALI5TAB OR; +VOLT1GEL TOP; +[UNRECOGNIZED DRUG - OTHER] OR; -diazePAM 5 MG TAB As Ordered; -oxyCODONE 5MG TAB As Ordered
--- NOTE | 2018-10-22 01:43 | ECWPNPC ---
PATIENT NAME: ALEX JI : 1965 GENDER: MALE VISIT DATE: 09/27/2018 DISCHARGE DATE: 09/27/18 1544 VISIT LOCKED DATE TIME: PHYSICIAN: BLANE EUGENE RESOURCE: BLANE EUGENE REASON FOR APPOINTMENT 1. W/C MED MGMT- KEEP 30 MINUTES HISTORY OF PRESENT ILLNESS DEPRESSION SCREENING: PHQ-2 IN LAST TWO WEEKS HAVE YOU BEEN BOTHERED BY LITTLE INTEREST OR PLEASURE IN DOING THINGSNO FEELING DOWN, DEPRESSED, OR HOPELESSNO HISTORY OF PRESENT ILLNESS: HERE FOR POST PROCEDURE F/U.HAD LESI L4/5 ON 04-15-18 AND REPORTS SIGNIFICANT IMPROVEMENT IN PAIN THAT CONTINUES TODAY.REPORTS RESOLUTION OF RADICULAR SYMPTOMS IN LEGS.REPORTING MUSCLE SPASM PAIN IN NECK REGION THAT HAS ESCALATED OVER THE PAST 2 WEEKS.REPORTING SEVERE INCREASE IN BILATERAL NEUROPATHY IN FEET SINCE LYRICA WAS STOPPED 5 MONTHS AGO.THIS WAS UNDER COMPLETE CONTROL WHEN HE WAS TAKING LYRICA.REPORTING POOR SLEEP DUE TO UNCONTROLLED NEUROPATHIC PAIN IN FEET.REPORTING INABILITY TO TAKE DOG FOR WALK SINCE STOPPING LYRICA.RATING PAIN VAS 8/10 IN NECK AND FEET.THIS IS A WORK RELATED INJURY WITH DOI:04-13-1988.HE ALSO STATES THAT HE IS HAVING MORE MIGRAINE HEADACHES.HAVING DAILY HEADACHES.HE RESPONDS WELL TO BOTOX INJECTIONS.ROBAXIN IS BEING USED TO TREAT WHOLE BODY SPASMS OF WHICH THEY ARE CURRENTLY DENYING PAYMENT FOR AND HE HAS BEEN HAVING MORE EPISODES WITHOUT THIS MEDICATION. PAIN THE PATIENT DESCRIBES THE PAIN... THE PATIENT DESCRIBES THE PAIN... THE PATIENT DESCRIBES THE PAIN... FALL RISK SCREENING: SCREENING :NO FALLS IN THE PAST YEAR CURRENT MEDICATIONS TAKING ATENOLOL 50 MG TABLET 1 TABLET ORALLY BID TAKING LEVOTHYROXINE SODIUM 50 MCG TABLET 1 TABLET ORALLY ONCE A DAY TAKING TRIAMTERENE-HCTZ 37.5-25 MG TABLET 1 TABLET IN THE MORNING ORALLY ONCE A DAY TAKING PINDOLOL 5 MG TABLET 1 TABLET ORALLY QID TAKING POTASSIUM CHLORIDE 10 MEQ (PRT) TABLET EXTENDED RELEASE 1 TABLET ORALLY TWICE DAILY TAKING METFORMIN HCL ER 750 MG TABLET EXTENDED RELEASE 24 HOUR ORALLY TWICE A DAY TAKING COLACE 100 MG CAPSULE 1 CAPSULE NEEDED ORALLY ONCE A DAY TAKING TOPAMAX 100 MG TABLET 1 TABLET ORALLY FOR PAIN TWICE A DAY TAKING CYCLOBENZAPRINE HCL 10 MG TABLET 1 TABLET NEEDED ORALLY Q6-8H PRN FOR SEVERE MUSCLE SPASM PAIN #45 TAB. SHOULD LAST 30 DAYS TAKING KETOROLAC TROMETHAMINE 10 MG TABLET 1 TABLET WITH FOOD OR MILK NEEDED ORALLY Q6H PRN FOR SEVERE PAIN MDD4 TAKING PERCOCET 7.5-325 MG TABLET 1 ORALLY Q6H PRN MDD4 TAKING FENTANYL 50 MCG/HR PATCH 72 HOUR 1 PATCH TO SKIN TRANSDERMAL Q72 HR=MDD TAKING AMITRIPTYLINE HCL 50 MG TABLET 3 ORALLY FOR PAIN ONCE A DAY NOT-TAKING LYRICA 150 MG CAPSULE 1 CAPSULE ORALLY THREE TIMES A DAY MDD3 NOT-TAKING ROBAXIN-750 750 MG TABLET 1 STRIP ORALLY Q6-8 PRN NOT-TAKING ROBAXIN-750 750 MG TABLET 1 TABLET ORALLY EVERY 4 HRS PRN FOR SPASMS AND PAIN MDD3 MEDICATION LIST REVIEWED AND RECONCILED WITH THE PATIENT PAST MEDICAL HISTORY DM, HTN, CHRONIC PAIN , THYROID DISEASE, GERD, MIGRANES ALLERGIES AZITHROMYCIN: LIP SWELLING: ALLERGY SUMATRIPTAN: FACIAL SWELLING: ALLERGY PROPOXYPHENE: PRICKLY FEELING, RASH, SOB: ALLERGY SURGICAL HISTORY FUSION C3-C4 1994 3 SURGURIES TO LEFT KNEE 1993 FAMILY HISTORY FATHER: 51 YRS, DIAGNOSED WITH DIABETES MOTHER: 50 YRS, DIAGNOSED WITH CANCER 3 BROTHER(S) , 2 SISTER(S) . 1 SON(S) - HEALTHY. ON BROTHER R/T PANCREATIC CANCER, ONE SISTER WITH MS BROTHER - COMPLICATIONS FROM AGENT ORANGEBROTHER - BLOOD CLOT. SOCIAL HISTORY GENERAL: TOBACCO USE ARE YOU A:NONSMOKER LUNG CANCER SCREENING SMOKING STATUS:NON SMOKER ALCOHOL SCREENING DID YOU HAVE A DRINK CONTAINING ALCOHOL IN THE PAST YEAR?NO POINTS0 INTERPRETATIONNEGATIVE RECREATIONAL DRUG USE DRUG USE?NO CAFFEINE CAFFEINE USE?NO HIV / HEP-C SCREENING HIV TEST OFFERED TO PATIENT:YES DATE OFFERED:01/17/2018 TEST ACCEPTED:NO REASON:PATIENT DECLINED BROCHURE PROVIDED TO PATIENTNO HEP-C TEST OFFERED TO PATIENT:YES DATE OFFERED:01/17/2018 TEST ACCEPTED:NO REASON:PATIENT DECLINED YARSANISM [id number] LANGUAGE LANGUAGES SPOKEN:LIBERIAN LEARNING BARRIERS / SPECIAL NEEDS CHANGE FROM LAST VISIT?NO BARRIERS TO LEARNING?NO HEARING IMPAIRED?NO VISION IMPAIRED?YES :CORRECTIVE LENSES COGNITIVELY IMPAIRED?NO READINESS TO LEARN?YES LEARNING PREFERENCES?YES :BOOKLETS, HANDOUTS LEARNING CAPABILITIES PRESENT?YES EMOTIONAL BARRIERS?NO SPECIAL DEVICES?YES :CANE, WHEELCHAIR DOMESTIC VIOLENCE DO YOU FEEL SAFE IN YOUR ENVIRONMENT?YES PAIN CLINIC PFS, CLERGY, PUBLIC HEALTH REFERRALS PFS REFERRAL NEEDED?NO CLERGY REFERRAL NEEDED?NO PUBLIC HEALTH REFERRAL NEEDED?NO WAS THE PROVIDER NOTIFIED OF ANY PERTINENT INFO?NO N/A HAS THE PATIENT BEEN EDUCATED REGARDING HIS/HER PLAN OF CARE?YES HAS THE PATIENT BEEN EDUCATED REGARDING PAIN, THE RISK FOR PAIN, THE IMPORTANCE OF EFFECTIVE PAIN MANAGEMENT, AND THE PAIN ASSESSMENT PROCESS?YES ADVANCE DIRECTIVE ADVANCE DIRECTIVE DISCUSSED WITH PATIENT:YES HCP - SHE JI () REVIEWED 04/15/18 1430 LAS REVIEWED WITH PATIENT 09/27/18 1512 JS. HOSPITALIZATION/MAJOR DIAGNOSTIC PROCEDURE SURGERIES HYPERTENSION HEAD INJURY 03/1986 REVIEW OF SYSTEMS REVIEWED BY: PROVIDER: BLANE ACKERMAN . CONSTITUTIONAL: ANY CHANGE IN YOUR MEDICAL CONDITION? NO . CHILLS NO . FEVER NO . INFECTION: DO YOU HAVE NEW INFECTIONS? NO . DO YOU HAVE HISTORY OF MRSA? NO . MUSCULOSKELETAL: ANY NEW PATTERNS OF PAIN OR NUMBNESS? NO . GASTROENTEROLOGY: ANY NEW CHANGE IN BOWEL CONTROL? NO . GENITOURINARY: ANY NEW CHANGE IN BLADDER CONTROL? NO . IS THERE A CHANCE YOU COULD BE ? NO . HEMATOLOGY/LYMPH: DO YOU TAKE ANY BLOOD THINNERS? (FOR EXAMPLE- COUMADIN, PLAVIX, AGGRENOX, PLATEL, PRADAXA, OR XARELTO) NO . WHEN WAS YOUR LAST DOSE? DATE: TIME: . NEUROLOGY: HAVE YOU FALLEN IN THE PAST 6 MONTHS? NO . ANY NEW EXTREMITY NUMBNESS OR WEAKNESS? NO . CARDIOLOGY: DO YOU HAVE A PACEMAKER OR DEFIBRILLATOR? NO . RESPIRATORY: HAVE YOU BEEN SICK IN THE PAST WEEK? NO . FEVER NO . FLU LIKE SYMPTOMS? NO . COUGH NO . INTEGUMENTARY: DO YOU HAVE ANY RASHES OR OPEN SORES? NO . ALLERGIC/IMMUNO: ARE YOU ALLERGIC TO SHELLFISH OR IV DYE? NO . ANY NEW ALLERGIES? NO . PSYCHIATRIC: DO YOU HAVE THOUGHTS OF HURTING YOURSELF OR SOMEONE ELSE? NO . ARE YOU ABUSED, NEGLECTED, OR IN AN UNSAFE ENVIRONMENT? NO . ENDOCRINOLOGY: ARE YOU DIABETIC? YES . OTHER: DO YOU NEED ANY PRESCRIPTIONS? YES . IF YES, PLEASE LIST: ____OXYCODONE, FENTANYL . ANY NEW PROBLEMS WITH YOUR MEDICATIONS? NO . WHEN DID YOU LAST EAT? ____ . WHEN DID YOU LAST DRINK? ____ . WHAT DID YOU LAST DRINK? ____ . NAME OF PERSON DRIVING YOU HOME? ____ . DO YOU HAVE ANY OTHER QUESTIONS OR CONCERNS NO . VITAL SIGNS WT 332 LBS, HT 75 IN, BMI 41.49 INDEX, BP 168/85 MM HG, HR 85 /MIN, RR 18 /MIN, TEMP 97.1 F, OXYGEN SAT % 96%, SAFE IN ENV? (Y/N) YES, NA INITIALS OK 15:10, REVIEWED BY: TERRENCE. EXAMINATION GENERAL EXAMINATION: LUNGS:LUNG SOUNDS ARE CLEAR . HEART:HEART RATE REGULAR . MUSCULOSKELETAL:*, TRIGGER POINTS:, ELICITED WITH PALPATION OVER CERVICAL SPINOUS PROCESSES AND ACROSS THE TRAPEZIUS MUSCLES BILATERALLY. RESTRICTION OF ROM IS NOTED. MUSCLE SPASM IS NOTED ACROSS TRAPEZIUS BILAT.. LUMBAR SACRAL SPINEMUSCLE STRENGTH TESTING 3/5 BILATERAL. PALPATION: POSITIVE FOR PAIN OVER L/S SPINE. POSITIVE FOR PAIN OVER L/S PARSPINALS. MULTIPLE TRIGGER POINTS ELICITED NECK AND TRAPEZIUS BILAT. . NEUROLOGIC EXAM:ANTALGIC GAIT W ASSIST OF CANE. DIAGNOSTIC: . ASSESSMENTS INTERVERTEBRAL DISC DISORDERS WITH RADICULOPATHY, LUMBOSACRAL REGION - M51.17 (PRIMARY) INTRACTABLE CHRONIC MIGRAINE WITHOUT AURA AND WITHOUT STATUS MIGRAINOSUS - G43.719 CERVICALGIA - M54.2 TREATMENT INTERVERTEBRAL DISC DISORDERS WITH RADICULOPATHY, LUMBOSACRAL REGION CONTINUE CYCLOBENZAPRINE HCL TABLET, 10 MG, 1 TABLET NEEDED, ORALLY, Q6-8H PRN FOR SEVERE MUSCLE SPASM PAIN #45 TAB. SHOULD LAST 30 DAYS CONTINUE KETOROLAC TROMETHAMINE TABLET, 10 MG, 1 TABLET WITH FOOD OR MILK NEEDED, ORALLY, Q6H PRN FOR SEVERE PAIN MDD4 REFILL PERCOCET TABLET, 7.5-325 MG, 1, ORALLY, Q6H PRN MDD4, 30 DAY(S), 120, REFILLS 0 REFILL FENTANYL PATCH 72 HOUR, 50 MCG/HR, 1 PATCH TO SKIN, TRANSDERMAL, Q72 HR=MDD, 30 DAY(S), 10, REFILLS 0 REFILL ROBAXIN-750 TABLET, 750 MG, 1 STRIP, ORALLY, Q6-8 PRN, 30 DAY(S), 60, REFILLS 2 REFILL LYRICA CAPSULE, 150 MG, 1 CAPSULE, ORALLY, THREE TIMES A DAY MDD3, 30 DAY(S), 90, REFILLS 2 NOTES: ISTOP REGISTRY REVIEWED AND DEMONSTRATES COMPLLIANCE. BRINGS IN MEDICATIONS WHICH IS APPROPRIATE FOR WHAT WAS DISPENSED. RECENT URINE TOXICOLOGY REVIEWED. NO UNAUTHORIZED MEDICATIONS. NO ILLICIT SUBSTANCES AND PRESCRIBED MEDICATIONS WERE PRESENT. , RISKS AND BENEFITS OF NARCOTIC/OPIOD MEDICATIONS WERE REVIEWED WITH PATIENT - THIS INCLUDES BUT IS NOT LIMITED TO RISK OF DEPENDANCE/DEVELOPMENT OF ADDICTION, MOOD DISTURBANCE AND DEPRESSION, OSTEOPOROSIS, HORMONAL AND LABIDAL CHANGES, RESPIRATORY DEPRESSION AND . PATIENT IS ADVISED NOT TO DRIVE OR DRINK ALCOHOL WHILE ON THESE MEDICATIONS. PROCEDURES PN WORKMANS' COMP OPINION IN YOUR OPINION, WAS THE INCIDENT THAT THE PATIENT DESCRIBED THE COMPETENT MEDICAL CAUSE OF THIS INJURY/ILLNESS? YES ARE THE PATIENT'S COMPLAINTS CONSISTENT WITH HIS/HER HISTORY OF THE INJURY/ILLNESS? YES IS THE PATIENT'S HISTORY OF THE INJURY/ILLNESS CONSISTENT WITH YOUR OBJECTIVE FINDING? YES WHAT IS THE PERCENTAGE OF TEMPORARY IMPAIRMENT? MARKED = 75% IS THE PATIENT WORKING? NO DOCTOR ON SITE: JAVON VALDEZ MD PREVENTIVE MEDICINE PAIN CLINIC TEACHING: PROCEDURE TEACHING REVIEWED BOTOX PROCEDURE INFORMATION WITH PATIENT. ALSO REVIEWED PRE-PROCEDURE INSTRUCTIONS. PATIENT VERBALIZED AN UNDERSTANDING. SAMY MOTLEY 09/27/2018 3:46:14 PM > . PROCEDURE CODES FA211 ESTABILISHED PATIENT [facility] CHARGE DISPOSITION & COMMUNICATION FOLLOW UP POST BOTOX ELECTRONICALLY SIGNED BY MEKA BAPTISTE ON 10/21/2018 AT 04:45 PM EST DISCLAIMER : THIS IS A VISIT SUMMARY EXTRACTED FROM THE [employer] CHART. IT IS NOT A COPY OF THE [employer] PROGRESS NOTE. NAHEED
== END ==
LOC: M PAIN 14:45
PROVIDERS: ATTEND Nurse Practitioner Family
DX: M51.17 Intervertebral disc disorders with radiculopathy, lumbosacral region (principal); G43.719 Chronic migraine without aura, intractable, without status migrainosus; M54.2 Cervicalgia; E11.9 Type 2 diabetes mellitus without complications; I10 Essential (primary) hypertension; E07.9 Disorder of thyroid, unspecified; G43.909 Migraine, unspecified, not intractable, without status migrainosus; E66.01 Morbid (severe) obesity due to excess calories; Z68.41 Body mass index [BMI] 40.0-44.9, adult; Z79.84 Long term (current) use of oral hypoglycemic drugs; Z79.891 Long term (current) use of opiate analgesic; Z79.899 Other long term (current) drug therapy; Z88.1 Allergy status to other antibiotic agents; Z88.8 Allergy status to other drugs, medicaments and biological substances; Z87.820 Personal history of traumatic brain injury

== ENCOUNTER → 2018-10-23 | Outpatient (CLI) | payer OTHER ==
[~2018-10-23] MED LIST changes: +BOTULINUM INJ 100 UNITS (J0585) IM ONE; +diazePAM 5 MG TAB As Ordered ONE; +oxyCODONE 5MG TAB As Ordered ONE
--- NOTE | 2018-11-11 01:05 | ECWPNPC ---
PATIENT NAME: ALEX JI : 1965 GENDER: MALE VISIT DATE: 10/23/2018 DISCHARGE DATE: 10/23/18 1405 VISIT LOCKED DATE TIME: PHYSICIAN: JAVON LEONARDO MD RESOURCE: JAVON LEONARDO MD REASON FOR APPOINTMENT 1. BOTOX HISTORY OF PRESENT ILLNESS HISTORY OF PRESENT ILLNESS: PAIN THE PATIENT DESCRIBES THE PAIN... FALL RISK SCREENING: SCREENING :NO FALLS IN THE PAST YEAR CURRENT MEDICATIONS TAKING ATENOLOL 50 MG TABLET 1 TABLET ORALLY BID, NOTES: 10/23/18 06 TAKING LEVOTHYROXINE SODIUM 50 MCG TABLET 1 TABLET ORALLY ONCE A DAY, NOTES: 10/23/18599 TAKING TRIAMTERENE-HCTZ 37.5-25 MG TABLET 1 TABLET IN THE MORNING ORALLY ONCE A DAY, NOTES: 10/23/18599 TAKING PINDOLOL 5 MG TABLET 1 TABLET ORALLY QID, NOTES: 10/23/18599 TAKING POTASSIUM CHLORIDE 10 MEQ (PRT) TABLET EXTENDED RELEASE 1 TABLET ORALLY TWICE DAILY, NOTES: 10/23/18599 TAKING METFORMIN HCL ER 750 MG TABLET EXTENDED RELEASE 24 HOUR ORALLY TWICE A DAY, NOTES: 10/22/18 TAKING COLACE 100 MG CAPSULE 1 CAPSULE NEEDED ORALLY ONCE A DAY, NOTES: NONE LATELY TAKING TOPAMAX 100 MG TABLET 1 TABLET ORALLY FOR PAIN TWICE A DAY, NOTES: 10/23/18 06 TAKING AMITRIPTYLINE HCL 50 MG TABLET 3 ORALLY FOR PAIN ONCE A DAY, NOTES: 10/22/18 TAKING CYCLOBENZAPRINE HCL 10 MG TABLET 1 TABLET NEEDED ORALLY Q6-8H PRN FOR SEVERE MUSCLE SPASM PAIN #45 TAB. SHOULD LAST 30 DAYS, NOTES: 10/22/18 TAKING KETOROLAC TROMETHAMINE 10 MG TABLET 1 TABLET WITH FOOD OR MILK NEEDED ORALLY Q6H PRN FOR SEVERE PAIN MDD4, NOTES: 10/19/18 TAKING PERCOCET 7.5-325 MG TABLET 1 ORALLY Q6H PRN MDD4, NOTES: 10/23/18 0600 TAKING FENTANYL 50 MCG/HR PATCH 72 HOUR 1 PATCH TO SKIN TRANSDERMAL Q72 HR=MDD, NOTES: 10/21/18 DISCONTINUED ROBAXIN-750 750 MG TABLET 1 STRIP ORALLY Q6-8 PRN DISCONTINUED LYRICA 150 MG CAPSULE 1 CAPSULE ORALLY THREE TIMES A DAY MDD3 DISCONTINUED ROBAXIN-750 750 MG TABLET 1 TABLET ORALLY EVERY 4 HRS PRN FOR SPASMS AND PAIN MDD3 MEDICATION LIST REVIEWED AND RECONCILED WITH THE PATIENT PAST MEDICAL HISTORY DM, HTN, CHRONIC PAIN , THYROID DISEASE, GERD, MIGRANES ALLERGIES AZITHROMYCIN: LIP SWELLING: ALLERGY SUMATRIPTAN: FACIAL SWELLING: ALLERGY PROPOXYPHENE: PRICKLY FEELING, RASH, SOB: ALLERGY SURGICAL HISTORY FUSION C3-C4 1994 3 SURGURIES TO LEFT KNEE 1993 FAMILY HISTORY FATHER: 51 YRS, DIAGNOSED WITH DIABETES MOTHER: 50 YRS, DIAGNOSED WITH CANCER 3 BROTHER(S) , 2 SISTER(S) . 1 SON(S) - HEALTHY. ON BROTHER R/T PANCREATIC CANCER, ONE SISTER WITH MS BROTHER - COMPLICATIONS FROM AGENT ORANGEBROTHER - BLOOD CLOT. SOCIAL HISTORY GENERAL: TOBACCO USE ARE YOU A:NONSMOKER LUNG CANCER SCREENING SMOKING STATUS:NON SMOKER ALCOHOL SCREENING DID YOU HAVE A DRINK CONTAINING ALCOHOL IN THE PAST YEAR?NO POINTS0 INTERPRETATIONNEGATIVE RECREATIONAL DRUG USE DRUG USE?NO CAFFEINE CAFFEINE USE?NO HIV / HEP-C SCREENING HIV TEST OFFERED TO PATIENT:YES DATE OFFERED:01/17/2018 TEST ACCEPTED:NO REASON:PATIENT DECLINED BROCHURE PROVIDED TO PATIENTNO HEP-C TEST OFFERED TO PATIENT:YES DATE OFFERED:01/17/2018 TEST ACCEPTED:NO REASON:PATIENT DECLINED RELIGIOUS [id number] CONGREGATIONAL LANGUAGE LANGUAGES SPOKEN:AZERI LEARNING BARRIERS / SPECIAL NEEDS CHANGE FROM LAST VISIT?NO BARRIERS TO LEARNING?NO HEARING IMPAIRED?NO VISION IMPAIRED?YES :CORRECTIVE LENSES COGNITIVELY IMPAIRED?NO READINESS TO LEARN?YES LEARNING PREFERENCES?YES :BOOKLETS, HANDOUTS LEARNING CAPABILITIES PRESENT?YES EMOTIONAL BARRIERS?NO SPECIAL DEVICES?YES :CANE, WHEELCHAIR DOMESTIC VIOLENCE DO YOU FEEL SAFE IN YOUR ENVIRONMENT?YES PAIN CLINIC PFS, CLERGY, PUBLIC HEALTH REFERRALS PFS REFERRAL NEEDED?NO CLERGY REFERRAL NEEDED?NO PUBLIC HEALTH REFERRAL NEEDED?NO WAS THE PROVIDER NOTIFIED OF ANY PERTINENT INFO?NO N/A HAS THE PATIENT BEEN EDUCATED REGARDING HIS/HER PLAN OF CARE?YES HAS THE PATIENT BEEN EDUCATED REGARDING PAIN, THE RISK FOR PAIN, THE IMPORTANCE OF EFFECTIVE PAIN MANAGEMENT, AND THE PAIN ASSESSMENT PROCESS?YES ADVANCE DIRECTIVE ADVANCE DIRECTIVE DISCUSSED WITH PATIENT:YES HCP - SHE JI () REVIEWED 04/15/18 1430 LAS REVIEWED WITH PATIENT 09/27/18 1512 JS. HOSPITALIZATION/MAJOR DIAGNOSTIC PROCEDURE SURGERIES HYPERTENSION HEAD INJURY 03/1986 REVIEW OF SYSTEMS REVIEWED BY: PROVIDER: . CONSTITUTIONAL: ANY CHANGE IN YOUR MEDICAL CONDITION? NO . CHILLS NO . FEVER NO . INFECTION: DO YOU HAVE NEW INFECTIONS? NO . DO YOU HAVE HISTORY OF MRSA? NO . MUSCULOSKELETAL: ANY NEW PATTERNS OF PAIN OR NUMBNESS? NO . GASTROENTEROLOGY: ANY NEW CHANGE IN BOWEL CONTROL? NO . GENITOURINARY: ANY NEW CHANGE IN BLADDER CONTROL? NO . IS THERE A CHANCE YOU COULD BE ? NO . HEMATOLOGY/LYMPH: DO YOU TAKE ANY BLOOD THINNERS? (FOR EXAMPLE- COUMADIN, PLAVIX, AGGRENOX, PLATEL, PRADAXA, OR XARELTO) NO . WHEN WAS YOUR LAST DOSE? DATE: TIME: . NEUROLOGY: HAVE YOU FALLEN IN THE PAST 6 MONTHS? YES, FELL LAST WEEKEND FROM LOSS OF BALANCE PT DENIES INJURIES . ANY NEW EXTREMITY NUMBNESS OR WEAKNESS? YES, BILAT ARM AND HAND DEVELOP PINS AND NEEDLES SENSATION WHEN LYING ON THAT SIDE . CARDIOLOGY: DO YOU HAVE A PACEMAKER OR DEFIBRILLATOR? NO . RESPIRATORY: HAVE YOU BEEN SICK IN THE PAST WEEK? NO . FEVER NO . FLU LIKE SYMPTOMS? NO . COUGH NO . INTEGUMENTARY: DO YOU HAVE ANY RASHES OR OPEN SORES? NO . ALLERGIC/IMMUNO: ARE YOU ALLERGIC TO SHELLFISH OR IV DYE? NO . ANY NEW ALLERGIES? NO . PSYCHIATRIC: DO YOU HAVE THOUGHTS OF HURTING YOURSELF OR SOMEONE ELSE? NO . ARE YOU ABUSED, NEGLECTED, OR IN AN UNSAFE ENVIRONMENT? NO . ENDOCRINOLOGY: ARE YOU DIABETIC? YES . OTHER: DO YOU NEED ANY PRESCRIPTIONS? NO . IF YES, PLEASE LIST: ____ . ANY NEW PROBLEMS WITH YOUR MEDICATIONS? NO . WHEN DID YOU LAST EAT? 10/22/18 2200 . WHEN DID YOU LAST DRINK? 10/23/18 0800 . WHAT DID YOU LAST DRINK? WATER . NAME OF PERSON DRIVING YOU HOME? CRICKET . DO YOU HAVE ANY OTHER QUESTIONS OR CONCERNS NO . VITAL SIGNS WT 334 LBS, HT 75 IN, BMI 41.74 INDEX, BP 151/95 MM HG, HR 83 /MIN, RR 18 /MIN, TEMP 95.1 F, OXYGEN SAT % 95%, NA INITIALS SC 11:55, REVIEWED BY: EM. ASSESSMENTS CHRONIC MIGRAINE - G43.709 (PRIMARY) PROCEDURES PN BOTOX INJECTIONS SUBSEQUENT INJECTIONS PRE PROCEDURE DIAGNOSIS CHRONIC MIGRAINE HEADACHES. POST PROCEDURE DIAGNOSIS CHRONIC MIGRAINE HEADACHES. PROCEDURE BOTOX INJECTION AT THE HEAD, NECK AND SHOULDERS. SURGEON DR. JAVON LEONARDO CONTRACT ADMINISTRATIVE ASSISTANT NONE ANESTHESIA NONE PRE PROCEDURE NOTE THE PATIENT HAS HISTORY OF CHRONIC MIGRAINE HEADACHES. I EVALUATE THE PATIENT AND REVIEWED THE CHART. I WENT OVER THE RISKS, ALTERNATIVES, AND BENEFITS ASSOCIATED WITH THIS PROCEDURE. THE PATIENT WOULD LIKE TO PROCEED AND GIVE CONSENT TO PERFORMED THE PROCEDURE. THE PATIENT DENIES UNEXPLAINABLE WEIGHT LOSS, FEVER, CHILLS, OR NEW CHANGES IN URINARY OR BOWEL CONTROL. THE PATIENT DID A BOTOX INJECTION AT THE HEAD, NECK AND SHOULDERS MANY MONTHS AGO AND EXPRESSED MORE THAN 50% REDUCTION ON THE FREQUENCY AND INTENSITY OF THE HEADACHES. BUT THE LAST SESSION WAS DONE MORE THAN 6 MONTHS AGO. NOW HE IS HAVING HEADACHES AGAIN EVERY DAY. THE PATIENT EXPRESS THAT THE USE OF BOTOX HAS REDUCE SIGNIFICANTLY THE SEVERITY OF THE HEADACHES IN THE PAST AND EXPRESSED THAT WANT TO RECEIVE THIS PROCEDURE AGAIN. DESCRIPTION OF PROCEDURE THE PATIENTS WAS BROUGHT TO THE PROCEDURE ROOM AND PLACED IN THE SUPINE POSITION. I CHECKED LATERALITY AND THE AREAS WHERE THE PROCEDURE WAS GOING TO BE PERFORMED WITH THE PATIENT AND THE SUPPORTING STAFF AT THE MOMENT OF THE TIME OUT IN THE PROCEDURE ROOM. FOR THE PROCEDURE I USED A SOLUTION OF 5 UNITS OF BOTOX PER EACH 0.1 ML OF THE SOLUTION. I USED A 30-GAUGE NEEDLE TO INJECT THE SOLUTION AT THE SELECTED LOCATIONS. I INJECTED FIRST THE RIGHT AND LEFT PRISON OFFICER MUSCLES. THE LANDMARK FOR BOTH INJECTIONS WAS APPROXIMATELY 1 CM ABOVE THE SUPERIOR MEDIAL EDGE OF THE EYEBROW. AFTER THESE TWO INJECTIONS, I INJECTED THE PROCERUS MUSCLE AT THE MIDLINE POINT BETWEEN THESE FIRST TWO INJECTIONS. THEN I PROCEEDED TO INJECT THE RIGHT AND LEFT FRONTALIS MUSCLE. TWO INJECTIONS WERE DONE IN EACH SIDE. THE FIRST INJECTION WAS DONE APPROXIMATELY 2 CM ABOVE THE FIRST INJECTION OF THE PRISON OFFICER. THE SECOND INJECTION WAS DONE APPROXIMATELY 1.5 CM LATERAL TO THIS FIST INJECTION OF THE FRONTALIS OF EACH SIDE. AFTER THE INJECTIONS OVER THE FOREHEAD WERE DONE, THE PATIENT'S HEAD WAS TURNED TO THE LEFT SIDE AND WE STARTED TO WORK WITH THE RIGHT TEMPORALIS MUSCLE. FIRST INJECTION WAS DONE IN A VERTICAL LINE OF THE TRAGUS APPROXIMATELY 3 CM ABOVE THE TRAGUS. THE SECOND INJECTION WAS DONE APPROXIMATELY 2 CM ABOVE THE FIRST INJECTION. THE THIRD INJECTION WAS DONE APPROXIMATELY 1 CM FRONT SARGENT FROM THIS VERTICAL LINE CREATED AT THE LEVEL OF THE TRAGUS, SKILLED NURSING BETWEEN THESE TWO INJECTIONS. THE FOURTH INJECTION WAS DONE APPROXIMATELY 1.5 CM BACK FROM THE SECOND INJECTION TO THE TEMPORALIS IN LINE TO THE MIDPORTION OF THE EAR. THEN, WE PROCEEDED TO INJECT THE LEFT TEMPORALIS MUSCLE. WE CLEANED THE AREA WITH ALCOHOL AND PROCEEDED TO PERFORM THE SAME FOR INJECTIONS DESCRIBED ABOVE BUT IN THE LEFT TEMPORALIS MUSCLE USING THE SAME LANDMARKS. AFTER THESE INJECTIONS WERE DONE, THE PATIENT WAS SEATED. FIRST, WE STARTED TO INJECT THE LEFT AND RIGHT OCCIPITALIS MUSCLE. I INJECTED AT THE FOLLOWING PLACES IN THE RIGHT AND LEFT MUSCLE. THE FIRST INJECTION WAS DONE AT THE MIDPOINT POSITION BETWEEN THE MASTOID PROCESS AND THE INION OF THE OCCIPITAL PROTUBERANCE. THE SECOND INJECTION WAS DONE APPROXIMATELY 1.5 CM SUPERIOR AND LATERAL OF THIS POINT. THE THIRD INJECTION WAS DONE APPROXIMATELY 1.5 CM SUPERIOR AND MEDIAL TO THIS FIRST INJECTION. THEN, I PROCEEDED TO INJECT THE RIGHT AND LEFT PARASPINAL MUSCLES. LANDMARK OF THE INJECTION WERE APPROXIMATELY: FIRST INJECTION 3 CM BELOW THE INION AND 1 CM LATERAL TO THE MIDLINE AND SECOND INJECTION AT EACH SIDE WAS DONE APPROXIMATELY 1.5 CM SUPERIOR AND LATERAL OF THE FIRST INJECTION. THE LAST GROUP OF INJECTIONS WAS DONE OVER THE RIGHT AND LEFT TRAPEZIUS MUSCLE OVER THE SHOULDERS AREA. THE FIRST INJECTION WAS DONE AT THE MIDPOINT BETWEEN THE INFLECTION POINT BETWEEN THE NECK AND SHOULDER AND THE ACROMION. THE SECOND AND THIRD INJECTIONS WERE DONE APPROXIMATELY 2.5 CM LATERAL AND MEDIAL FROM THIS FIRST INJECTION. SAME TARGETS WERE USED IN THE RIGHT AND LEFT SIDE. FINALLY I INJECTED 2.5 UNITS OF BOTOX AT 5 POINTS IN THE SUPERIOR CRANIAL AREA WHERE THE PATIENT EXPRESSED HAVING A LOT OF PAIN. IN TOTAL, I INJECTED 167.5 UNITS OF BOTOX. PROCEDURE WAS DONE WITHOUT EVIDENCE OF PARESTHESIA, PNEUMOTHORAX, OR ANY COMPLICATIONS. THE PATIENT TOLERATED THE PROCEDURE VERY WELL. THE PATIENT WAS SENT TO THE RECOVERY ROOM FOR OBSERVATIONS. INJECTIONS WERE DONE AFTER CLEANING WITH ALCOHOL, USING ASEPTIC TECHNIQUES POST PROCEDURE NOTE THE PROCEDURE DONE WAS DISCUSSED WITH THE PATIENT. THE PATIENT WILL BE SEEN IN A FOLLOW UP IN THE NEXT FEW WEEKS. INSTRUCTIONS WERE GIVEN, QUESTIONS WERE ANSWERED, AND THE PATIENT EXPRESSED UNDERSTANDING AND AGREES WITH THE PLAN. I, ALICIA DEL VALLE, DOCUMENTED THE ABOVE INFORMATION ACTING A SCRIBE FOR DR. LEONARDO. I HAVE REVIEWED THE ABOVE DOCUMENT, WRITTEN BY ALICIA CRISTOBAL AND I VERIFY THAT IT IS ACCURATE. PROCEDURE CODES 89353 CHEMODENERV MUSC MIGRAINE DISPOSITION & COMMUNICATION FOLLOW UP 3 WEEKS ELECTRONICALLY SIGNED BY JAVON LEONARDO MD, MD ON 11/10/2018 AT 04:25 PM EST DISCLAIMER : THIS IS A VISIT SUMMARY EXTRACTED FROM THE [employer] CHART. IT IS NOT A COPY OF THE [employer] PROGRESS NOTE. NAHEED
== END ==
LOC: M PAIN 11:30
PROVIDERS: ATTEND Anesthesiology
DX: G43.709 Chronic migraine without aura, not intractable, without status migrainosus (principal); E11.9 Type 2 diabetes mellitus without complications; I10 Essential (primary) hypertension; E07.9 Disorder of thyroid, unspecified; G43.909 Migraine, unspecified, not intractable, without status migrainosus; E66.01 Morbid (severe) obesity due to excess calories; Z68.41 Body mass index [BMI] 40.0-44.9, adult; Z79.84 Long term (current) use of oral hypoglycemic drugs; Z79.891 Long term (current) use of opiate analgesic; Z79.899 Other long term (current) drug therapy; Z88.1 Allergy status to other antibiotic agents; Z88.8 Allergy status to other drugs, medicaments and biological substances
CPT/HCPCS: 64615; J0585

== ENCOUNTER → 2018-12-24 | Outpatient (CLI) | payer OTHER ==
[~2018-12-24] MED LIST changes: -BOTULINUM INJ 100 UNITS (J0585) IM ONE; -diazePAM 5 MG TAB As Ordered ONE; -oxyCODONE 5MG TAB As Ordered ONE
--- NOTE | 2019-01-07 02:33 | ECWPNPC ---
PATIENT NAME: ALEX JI : 1965 GENDER: MALE VISIT DATE: 12/24/2018 DISCHARGE DATE: 12/24/18 1606 VISIT LOCKED DATE TIME: PHYSICIAN: JAVON LEONARDO MD RESOURCE: JAVNO LEONARDO MD REASON FOR APPOINTMENT 1. POST PROC PER LB HISTORY OF PRESENT ILLNESS HISTORY OF PRESENT ILLNESS: PAIN THE PATIENT DESCRIBES THE PAIN... 53 YEAR OLD MALE PATIENT WITH A HISTORY OF CHRONIC MIGRAINES, NECK, AND LOW BACK PAIN. THE PATIENT DESCRIBES THE PAIN ACHING, SORE, TENDER, AND CONTINUOUS WITH A PAIN SCORE OF 3-7/10 DEPENDING ON PHYSICAL ACTIVITY. 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 THE PATIENT SAYS THE THE PATIENT SAYS THE PAIN IN HIS LOW BACK RADIATES DOWN HIS LEFT LEG. THE PATIENT RECEIVED BOTOX ON 10/23/2018 AND REPORTS HAVING MIGRAINES EVERYDAY BEFORE THE INJECTIONS AND NOW HAS LESS THAN 10 TO 12 PER MONTH. PATIENT DENIES UNEXPLAINABLE WEIGHT LOSS, FEVER, CHILLS, NEW CHANGES ON HIS URINARY OR BOWEL CONTROL. FALL RISK SCREENING: SCREENING : NO FALLS IN THE PAST YEAR. CURRENT MEDICATIONS TAKING ATENOLOL 50 MG TABLET 1 TABLET ORALLY BID TAKING LEVOTHYROXINE SODIUM 50 MCG TABLET 1 TABLET ORALLY ONCE A DAY TAKING TRIAMTERENE-HCTZ 37.5-25 MG TABLET 1 TABLET IN THE MORNING ORALLY ONCE A DAY TAKING PINDOLOL 5 MG TABLET 1 TABLET ORALLY QID TAKING POTASSIUM CHLORIDE 10 MEQ (PRT) TABLET EXTENDED RELEASE 1 TABLET ORALLY TWICE DAILY TAKING METFORMIN HCL ER 750 MG TABLET EXTENDED RELEASE 24 HOUR ORALLY TWICE A DAY TAKING COLACE 100 MG CAPSULE 1 CAPSULE NEEDED ORALLY ONCE A DAY, NOTES: NONE LATELY TAKING TOPAMAX 100 MG TABLET 1 TABLET ORALLY FOR PAIN TWICE A DAY TAKING AMITRIPTYLINE HCL 50 MG TABLET 3 ORALLY FOR PAIN ONCE A DAY TAKING CYCLOBENZAPRINE HCL 10 MG TABLET 1 TABLET NEEDED ORALLY Q6-8H PRN FOR SEVERE MUSCLE SPASM PAIN #45 TAB. SHOULD LAST 30 DAYS TAKING KETOROLAC TROMETHAMINE 10 MG TABLET 1 TABLET WITH FOOD OR MILK NEEDED ORALLY Q6H PRN FOR SEVERE PAIN MDD4 TAKING PERCOCET 7.5-325 MG TABLET 1 ORALLY Q6H PRN MDD4 TAKING FENTANYL 50 MCG/HR PATCH 72 HOUR 1 PATCH TO SKIN TRANSDERMAL Q72 HR=MDD MEDICATION LIST REVIEWED AND RECONCILED WITH THE PATIENT PAST MEDICAL HISTORY DM, HTN, CHRONIC PAIN , THYROID DISEASE, GERD, MIGRANES ALLERGIES AZITHROMYCIN: LIP SWELLING - ALLERGY SUMATRIPTAN: FACIAL SWELLING - ALLERGY PROPOXYPHENE: PRICKLY FEELING, RASH, SOB - ALLERGY SURGICAL HISTORY FUSION C3-C4 1994 3 SURGURIES TO LEFT KNEE 1993 FAMILY HISTORY FATHER: 51 YRS, DIAGNOSED WITH DIABETES MOTHER: 50 YRS, CANCER 3 BROTHER(S) , 2 SISTER(S) . 1 SON(S) - HEALTHY. ON BROTHER R/T PANCREATIC CANCER, ONE SISTER WITH MS BROTHER - COMPLICATIONS FROM AGENT ORANGEBROTHER - BLOOD CLOT. SOCIAL HISTORY GENERAL: TOBACCO USE ARE YOU A:NONSMOKER LATEX QUESTIONNAIRE LATEX ALLERGY : HAVE YOU EVER DEVELOPED ANY TYPE OF REACTION AFTER HANDLING LATEX PRODUCTS SUCH RUBBER GLOVES, CONDOMS, DIAPHRAGMS, BALLOONS, SOCKS, OR UNDERWEAR?NO LATEX ALLERGY : HAVE YOU EVER DEVELOPED ANY TYPE OF REACTION DURING OR AFTER DENTAL APPOINTMENT, VAGINAL/RECTAL EXAMINATION, SURGICAL PROCEDURE, OR ANY OTHER EXPOSURE?NO LATEX RISK : HAVE YOU EVER HAD ANY DIFFICULTY BREATHING OR HIVES AFTER EATING OR HANDLING ANY FRUITS, OR VEGETABLES; SUCH KIWI, BANANAS, STONE FRUITS, OR CHESTNUTSNO LATEX RISK : DO YOU HAVE A PREVIOUS PERSONAL HISTORY OF MORE THAN NINE SURGERIES, SPINA BIFIDA, OR REPEATED CATHERTIZATIONS? NO LATEX RISK : ARE YOU FREQUENTLY EXPOSED TO LATEX PRODUCTS IN YOUR OCCUPATION?NO DATE ASKED : 12/24/2018 LUNG CANCER SCREENING SMOKING STATUS:NON SMOKER ALCOHOL SCREENING DID YOU HAVE A DRINK CONTAINING ALCOHOL IN THE PAST YEAR?NO POINTS0 INTERPRETATIONNEGATIVE RECREATIONAL DRUG USE DRUG USE?NO CAFFEINE CAFFEINE USE?NO HIV / HEP-C SCREENING HIV TEST OFFERED TO PATIENT:YES DATE OFFERED:01/17/2018 TEST ACCEPTED:NO REASON:PATIENT DECLINED BROCHURE PROVIDED TO PATIENTNO HEP-C TEST OFFERED TO PATIENT:YES DATE OFFERED:01/17/2018 TEST ACCEPTED:NO REASON:PATIENT DECLINED SABIANIST [id number] LATTER DAY LANGUAGE LANGUAGES SPOKEN:SAUDI ARABIAN LEARNING BARRIERS / SPECIAL NEEDS CHANGE FROM LAST VISIT?NO BARRIERS TO LEARNING?NO HEARING IMPAIRED?NO VISION IMPAIRED?YES :CORRECTIVE LENSES COGNITIVELY IMPAIRED?NO READINESS TO LEARN?YES LEARNING PREFERENCES?YES :BOOKLETS, HANDOUTS LEARNING CAPABILITIES PRESENT?YES EMOTIONAL BARRIERS?NO SPECIAL DEVICES?YES :CANE, WHEELCHAIR DOMESTIC VIOLENCE DO YOU FEEL SAFE IN YOUR ENVIRONMENT?YES PAIN CLINIC PFS, CLERGY, PUBLIC HEALTH REFERRALS PFS REFERRAL NEEDED?NO CLERGY REFERRAL NEEDED?NO PUBLIC HEALTH REFERRAL NEEDED?NO WAS THE PROVIDER NOTIFIED OF ANY PERTINENT INFO?YES N/A HAS THE PATIENT BEEN EDUCATED REGARDING HIS/HER PLAN OF CARE?YES HAS THE PATIENT BEEN EDUCATED REGARDING PAIN, THE RISK FOR PAIN, THE IMPORTANCE OF EFFECTIVE PAIN MANAGEMENT, AND THE PAIN ASSESSMENT PROCESS?YES ADVANCE DIRECTIVE ADVANCE DIRECTIVE DISCUSSED WITH PATIENT:YES HCP - SHE JI () REVIEWED 04/15/18 1430 LAS REVIEWED WITH PATIENT 09/27/18 1512 JS. HOSPITALIZATION/MAJOR DIAGNOSTIC PROCEDURE SURGERIES HYPERTENSION HEAD INJURY 03/1986 REVIEW OF SYSTEMS REVIEWED BY: PROVIDER: JAVON LEONARDO MD . CONSTITUTIONAL: ANY CHANGE IN YOUR MEDICAL CONDITION? NO . CHILLS NO . FEVER NO . INFECTION: DO YOU HAVE NEW INFECTIONS? NO . DO YOU HAVE HISTORY OF MRSA? NO . MUSCULOSKELETAL: ANY NEW PATTERNS OF PAIN OR NUMBNESS? YES, IN LAST MONTH PT STATES THAT HE HAS LOST FEELING IN LEFT TOES, INTERMITTENTLY. PT STATES THAT HE FEELS TINGLING AND LOSS OF SENSATION IN LEFT ARM. . GASTROENTEROLOGY: ANY NEW CHANGE IN BOWEL CONTROL? NO . GENITOURINARY: ANY NEW CHANGE IN BLADDER CONTROL? NO . IS THERE A CHANCE YOU COULD BE ? NO . HEMATOLOGY/LYMPH: DO YOU TAKE ANY BLOOD THINNERS? (FOR EXAMPLE- COUMADIN, PLAVIX, AGGRENOX, PLATEL, PRADAXA, OR XARELTO) NO . WHEN WAS YOUR LAST DOSE? DATE: TIME: . NEUROLOGY: HAVE YOU FALLEN IN THE PAST 12 MONTHS? YES, PT STATES THAT HE FELL ON SUNDAY WHILE AT HOME, LOST BALANCE, LEFT LEG WEAKNESS, NO INJURY, NO REPORT TO ED. . ANY NEW EXTREMITY NUMBNESS OR WEAKNESS? NO . CARDIOLOGY: DO YOU HAVE A PACEMAKER OR DEFIBRILLATOR? NO . RESPIRATORY: HAVE YOU BEEN SICK IN THE PAST WEEK? NO . FEVER NO . FLU LIKE SYMPTOMS? NO . COUGH NO . INTEGUMENTARY: DO YOU HAVE ANY RASHES OR OPEN SORES? NO . ALLERGIC/IMMUNO: ARE YOU ALLERGIC TO IV DYE? NO . ANY NEW ALLERGIES? NO . PSYCHIATRIC: DO YOU HAVE THOUGHTS OF HURTING YOURSELF OR SOMEONE ELSE? NO . ARE YOU ABUSED, NEGLECTED, OR IN AN UNSAFE ENVIRONMENT? NO . ENDOCRINOLOGY: ARE YOU DIABETIC? YES, FSBS 93 ON 12/24 . OTHER: DO YOU NEED ANY PRESCRIPTIONS? NO . IF YES, PLEASE LIST: ____ . ANY NEW PROBLEMS WITH YOUR MEDICATIONS? NO . WHEN DID YOU LAST EAT? ____ . WHEN DID YOU LAST DRINK? ____ . WHAT DID YOU LAST DRINK? ____ . NAME OF PERSON DRIVING YOU HOME? BRAD . DO YOU HAVE ANY OTHER QUESTIONS OR CONCERNS NO . VITAL SIGNS WT 352.4 LBS, HT 75 IN, BMI 44.04 INDEX, BP 142/91 MM HG, HR 78 /MIN, RR 18 /MIN, TEMP 96.7 F, OXYGEN SAT % 96%, SAFE IN ENV? (Y/N) Y, NA INITIALS AW 1510, REVIEWED BY: ANTHONY. EXAMINATION GENERAL EXAMINATION: PATIENT IS ALERT O X 3 AND COOPERATIVE. LEFT LEG IS WEAKER AT EXTENSION AND FLEXION. STRAIGHT LEG RAISE OF THE LEFT LEG IS POSITIVE AT [address] OF THE LUMBAR SPINE DONE ON 02/15/2017 SHOWS STENOSIS AT MULTIPLE LEVELS. ASSESSMENTS CHRONIC MIGRAINE - G43.709 (PRIMARY) INTERVERTEBRAL DISC DISORDER WITH RADICULOPATHY OF LUMBAR REGION - M51.16 TREATMENT CHRONIC MIGRAINE CLINICAL NOTES: WE DISCUSSED SEVERAL ISSUES WITH MR. JI'S PAIN MANAGEMENT CASE. DUE TO THE CHRONIC MIGRAINES AND THE PATIENT HAVING GOOD REDUCTION IN THE AMOUNT OF MIGRAINES PER MONTH IN THE PAST, I WOULD LIKE TO MOVE FORWARD WITH BOTOX INJECTIONS AT THIS TIME. DUE TO THE LUMBAR RADICULOPATHY, I WOULD ALSO LIKE TO MOVE FORWARD WITH A LUMBAR EPIDURAL STEROID INJECTION AT THIS TIME. WE DISCUSSED THE BENEFITS, RISKS, AND ALTERNATIVES OF THE INJECTIONS AND THE PATIENT WOULD LIKE TO PROCEED. THE PATIENT WILL FOLLOW UP WITH A NURSE PRACTITIONER AFTER THE INJECTIONS. INSTRUCTIONS WERE GIVEN, QUESTIONS WERE ANSWERED, PATIENT REPORTS UNDERSTANDING AND AGREES WITH THE PLAN. I, ALICIA DEL VALEL, DOCUMENTED THE ABOVE INFORMATION ACTING A SCRIBE FOR DR. LEONARDO. I HAVE REVIEWED THE ABOVE DOCUMENT, WRITTEN BY ALICIA DICKIBAlanna AND I VERIFY THAT IT IS ACCURATE. . PROCEDURE CODES [id number] ESTABILISHED PATIENT [facility] FACILITY CHARGE [id number] CURRENT MEDS W/DOSAGES DOCUMENTED [id number] PAIN ASSESS POS TOOL F/U PLAN DOC DISPOSITION & COMMUNICATION FOLLOW UP 4 WEEKS ELECTRONICALLY SIGNED BY JAVON LEONARDO MD, MD ON 01/06/2019 AT 06:33 PM EDT DISCLAIMER : THIS IS A VISIT SUMMARY EXTRACTED FROM THE [employer] CHART. IT IS NOT A COPY OF THE [employer] PROGRESS NOTE. NAHEED
== END ==
LOC: M PAIN 14:30
PROVIDERS: ATTEND Anesthesiology
DX: G43.709 Chronic migraine without aura, not intractable, without status migrainosus (principal); M51.16 Intervertebral disc disorders with radiculopathy, lumbar region; E11.9 Type 2 diabetes mellitus without complications; I10 Essential (primary) hypertension; G89.29 Other chronic pain; E07.9 Disorder of thyroid, unspecified; K21.9 Gastro-esophageal reflux disease without esophagitis; Z98.1 Arthrodesis status; Z79.84 Long term (current) use of oral hypoglycemic drugs; Z79.891 Long term (current) use of opiate analgesic; Z79.899 Other long term (current) drug therapy; Z88.1 Allergy status to other antibiotic agents; Z88.8 Allergy status to other drugs, medicaments and biological substances

== ENCOUNTER → 2019-01-27 | Outpatient (CLI) | payer OTHER ==
[~2019-01-27] MED LIST changes: -/BACL20TA; -/BACL20TA OR; -/CELE20CA PO; -/FENT25PA TD; +BACL1TAB9; +BACL1TAB9 OR; +CELE1CAP4 PO; +FENT1DIS14 TD
--- NOTE | 2019-01-29 01:54 | ECWPNPC ---
PATIENT NAME: ALEX JI : 1965 GENDER: MALE VISIT DATE: 01/27/2019 DISCHARGE DATE: 01/27/19 1510 VISIT LOCKED DATE TIME: PHYSICIAN: BLANE EUGENE RESOURCE: BLANE EUGENE REASON FOR APPOINTMENT 1. W/C HISTORY OF PRESENT ILLNESS HISTORY OF PRESENT ILLNESS: HERE FOR ROUTINE F/U AND MEDICINE MANAGEMENT FOR CHRONIC PAIN ASSOCIATED WITH WORK RELATED INJURY.REPORTING MUSCLE SPASM PAIN IN NECK REGION THAT HAS BEEN ESCALATING OVER THE PAST 2 MONTHS.REPORTING DISABLING MIGRAINE HEADACHES THAT OCCUR 20 DAYS APPROXIMATLEY MONTHLY. ACCOMPANIES HIM IN EXAM ROOM TODAY.SHE REPORTS THAT HIS QUALITY OF LIFE AND ABILITY TO PARTICIPATE IN FAMILY ACTIVITIES HAS DRAMATICALLY DECLINED SINCE FENTANYL PATCH DOSAGE WAS REDUCED > THAN SIX MONTHS AGO.STATES THAT HE IS IN BED OR RECLINER 20 HOURS OF THE DAY.HE REPORTS INABILITY TO DO SIMPLE ACTIVITIES IE PREPARE DINNER WITH FAMILY THAT HE WAS ABLE TO DO PRIOR TO LOWERING FENTANYL AND ELIMINATING LYRICA.REPORTING SEVERE INCREASE IN BILATERAL NEUROPATHY IN FEET SINCE LYRICA WAS STOPPED SEVERAL MONTHS AGO.THIS WAS UNDER COMPLETE CONTROL WHEN HE WAS TAKING LYRICA.REPORTING POOR SLEEP DUE TO UNCONTROLLED NEUROPATHIC PAIN IN FEET.REPORTING INABILITY TO TAKE DOG FOR WALK SINCE STOPPING LYRICA AND REDUCING FENTANYL.RATING PAIN VAS 8/10 IN NECK AND FEET.THIS IS A WORK RELATED INJURY WITH DOI:[id number].HE ALSO STATES THAT HE IS HAVING MORE MIGRAINE HEADACHES.HAVING DAILY HEADACHES.HE RESPONDS WELL TO BOTOX INJECTIONS.ROBAXIN IS BEING USED TO TREAT WHOLE BODY SPASMS OF WHICH THEY ARE CURRENTLY DENYING PAYMENT FOR AND HE HAS BEEN HAVING MORE EPISODES WITHOUT THIS MEDICATION. PAIN THE PATIENT DESCRIBES THE PAIN... THE PATIENT DESCRIBES THE PAIN... THE PATIENT DESCRIBES THE PAIN... THE PATIENT DESCRIBES THE PAIN... FALL RISK SCREENING: SCREENING :NO FALLS REPORTED IN THE LAST YEAR CURRENT MEDICATIONS TAKING ATENOLOL 50 MG TABLET 1 TABLET ORALLY BID TAKING LEVOTHYROXINE SODIUM 50 MCG TABLET 1 TABLET ORALLY ONCE A DAY TAKING TRIAMTERENE-HCTZ 37.5-25 MG TABLET 1 TABLET IN THE MORNING ORALLY ONCE A DAY TAKING PINDOLOL 5 MG TABLET 1 TABLET ORALLY QID TAKING POTASSIUM CHLORIDE 10 MEQ (PRT) TABLET EXTENDED RELEASE 1 TABLET ORALLY TWICE DAILY TAKING METFORMIN HCL ER 750 MG TABLET EXTENDED RELEASE 24 HOUR ORALLY TWICE A DAY TAKING COLACE 100 MG CAPSULE 1 CAPSULE NEEDED ORALLY ONCE A DAY, NOTES: NONE LATELY TAKING AMITRIPTYLINE HCL 50 MG TABLET 3 ORALLY FOR PAIN ONCE A DAY TAKING CYCLOBENZAPRINE HCL 10 MG TABLET 1 TABLET NEEDED ORALLY Q6-8H PRN FOR SEVERE MUSCLE SPASM PAIN #45 TAB. SHOULD LAST 30 DAYS TAKING KETOROLAC TROMETHAMINE 10 MG TABLET 1 TABLET WITH FOOD OR MILK NEEDED ORALLY Q6H PRN FOR SEVERE PAIN MDD4 TAKING TOPAMAX 100 MG TABLET 1 TABLET ORALLY FOR PAIN TWICE A DAY TAKING PERCOCET 7.5-325 MG TABLET 1 ORALLY Q6H PRN MDD4 TAKING FENTANYL 50 MCG/HR PATCH 72 HOUR 1 PATCH TO SKIN TRANSDERMAL Q72 HR=MDD MEDICATION LIST REVIEWED AND RECONCILED WITH THE PATIENT PAST MEDICAL HISTORY DM, HTN, CHRONIC PAIN , THYROID DISEASE, GERD, MIGRANES ALLERGIES AZITHROMYCIN: LIP SWELLING - ALLERGY SUMATRIPTAN: FACIAL SWELLING - ALLERGY PROPOXYPHENE: PRICKLY FEELING, RASH, SOB - ALLERGY SURGICAL HISTORY FUSION C3-C4 1994 3 SURGURIES TO LEFT KNEE 1993 FAMILY HISTORY FATHER: 51 YRS, DIAGNOSED WITH DIABETES MOTHER: 50 YRS, CANCER 3 BROTHER(S) , 2 SISTER(S) . 1 SON(S) - HEALTHY. ON BROTHER R\/T PANCREATIC CANCER, ONE SISTER WITH MS \NBROTHER - COMPLICATIONS FROM AGENT ORANGE\NBROTHER - BLOOD CLOT. SOCIAL HISTORY GENERAL: TOBACCO USE ARE YOU A:NONSMOKER LATEX QUESTIONNAIRE LATEX ALLERGY : HAVE YOU EVER DEVELOPED ANY TYPE OF REACTION AFTER HANDLING LATEX PRODUCTS SUCH RUBBER GLOVES, CONDOMS, DIAPHRAGMS, BALLOONS, SOCKS, OR UNDERWEAR?NO LATEX ALLERGY : HAVE YOU EVER DEVELOPED ANY TYPE OF REACTION DURING OR AFTER DENTAL APPOINTMENT, VAGINAL/RECTAL EXAMINATION, SURGICAL PROCEDURE, OR ANY OTHER EXPOSURE?NO LATEX RISK : HAVE YOU EVER HAD ANY DIFFICULTY BREATHING OR HIVES AFTER EATING OR HANDLING ANY FRUITS, OR VEGETABLES; SUCH KIWI, BANANAS, STONE FRUITS, OR CHESTNUTSNO LATEX RISK : DO YOU HAVE A PREVIOUS PERSONAL HISTORY OF MORE THAN NINE SURGERIES, SPINA BIFIDA, OR REPEATED CATHERTIZATIONS? NO LATEX RISK : ARE YOU FREQUENTLY EXPOSED TO LATEX PRODUCTS IN YOUR OCCUPATION?NO DATE ASKED : 01/27/2019 LUNG CANCER SCREENING SMOKING STATUS:NON SMOKER ALCOHOL SCREENING DID YOU HAVE A DRINK CONTAINING ALCOHOL IN THE PAST YEAR?NO POINTS0 INTERPRETATIONNEGATIVE RECREATIONAL DRUG USE DRUG USE?NO CAFFEINE CAFFEINE USE?NO HIV / HEP-C SCREENING HIV TEST OFFERED TO PATIENT:YES DATE OFFERED:01/17/2018 TEST ACCEPTED:NO REASON:PATIENT DECLINED BROCHURE PROVIDED TO PATIENTNO HEP-C TEST OFFERED TO PATIENT:YES DATE OFFERED:01/17/2018 TEST ACCEPTED:NO REASON:PATIENT DECLINED HOAHAOISM [id number] LANGUAGE LANGUAGES SPOKEN:TURKMEN LEARNING BARRIERS / SPECIAL NEEDS CHANGE FROM LAST VISIT?NO BARRIERS TO LEARNING?NO HEARING IMPAIRED?NO VISION IMPAIRED?YES :CORRECTIVE LENSES COGNITIVELY IMPAIRED?NO READINESS TO LEARN?YES LEARNING PREFERENCES?YES :BOOKLETS, HANDOUTS LEARNING CAPABILITIES PRESENT?YES EMOTIONAL BARRIERS?NO SPECIAL DEVICES?YES :CANE, WHEELCHAIR DOMESTIC VIOLENCE DO YOU FEEL SAFE IN YOUR ENVIRONMENT?YES PAIN CLINIC PFS, CLERGY, PUBLIC HEALTH REFERRALS PFS REFERRAL NEEDED?NO CLERGY REFERRAL NEEDED?NO PUBLIC HEALTH REFERRAL NEEDED?NO WAS THE PROVIDER NOTIFIED OF ANY PERTINENT INFO?YES N/A HAS THE PATIENT BEEN EDUCATED REGARDING HIS/HER PLAN OF CARE?YES HAS THE PATIENT BEEN EDUCATED REGARDING PAIN, THE RISK FOR PAIN, THE IMPORTANCE OF EFFECTIVE PAIN MANAGEMENT, AND THE PAIN ASSESSMENT PROCESS?YES ADVANCE DIRECTIVE ADVANCE DIRECTIVE DISCUSSED WITH PATIENT:YES HCP - SHE JI () REVIEWED 04/15/18 1430 LAS REVIEWED WITH PATIENT 09/27/18 1512 JS. HOSPITALIZATION/MAJOR DIAGNOSTIC PROCEDURE SURGERIES HYPERTENSION HEAD INJURY 03/1986 REVIEW OF SYSTEMS REVIEWED BY: PROVIDER: BLANE ACKERMAN . CONSTITUTIONAL: ANY CHANGE IN YOUR MEDICAL CONDITION? NO . CHILLS NO . FEVER NO . INFECTION: DO YOU HAVE NEW INFECTIONS? NO . DO YOU HAVE HISTORY OF MRSA? NO . MUSCULOSKELETAL: ANY NEW PATTERNS OF PAIN OR NUMBNESS? YES, INCREASED PAIN IN LEFT AND RIGHT TOES, NUMBNESS, LEFT NUMBNESS IS GREATER THAN RIGHT. . GASTROENTEROLOGY: ANY NEW CHANGE IN BOWEL CONTROL? NO . GENITOURINARY: ANY NEW CHANGE IN BLADDER CONTROL? NO . IS THERE A CHANCE YOU COULD BE ? NO . HEMATOLOGY/LYMPH: DO YOU TAKE ANY BLOOD THINNERS? (FOR EXAMPLE- COUMADIN, PLAVIX, AGGRENOX, PLATEL, PRADAXA, OR XARELTO) NO . WHEN WAS YOUR LAST DOSE? DATE: TIME: . NEUROLOGY: HAVE YOU FALLEN IN THE PAST 12 MONTHS? YES, PT STATES THAT HE WAS HOME, LEGS BUCKLED AND PT FELL, NO INJURY, NO REPORT TO ED. . ANY NEW EXTREMITY NUMBNESS OR WEAKNESS? YES, NUMBNESS IN TOES INCREASING . CARDIOLOGY: DO YOU HAVE A PACEMAKER OR DEFIBRILLATOR? NO . RESPIRATORY: HAVE YOU BEEN SICK IN THE PAST WEEK? NO . FEVER NO . FLU LIKE SYMPTOMS? NO . COUGH NO . INTEGUMENTARY: DO YOU HAVE ANY RASHES OR OPEN SORES? NO . ALLERGIC/IMMUNO: ARE YOU ALLERGIC TO IV DYE? NO . ANY NEW ALLERGIES? NO . PSYCHIATRIC: DO YOU HAVE THOUGHTS OF HURTING YOURSELF OR SOMEONE ELSE? NO . ARE YOU ABUSED, NEGLECTED, OR IN AN UNSAFE ENVIRONMENT? NO . ENDOCRINOLOGY: ARE YOU DIABETIC? YES, FSBS 93 . OTHER: DO YOU NEED ANY PRESCRIPTIONS? YES, FENTANYL, OXYCODONE . IF YES, PLEASE LIST: ____ . ANY NEW PROBLEMS WITH YOUR MEDICATIONS? NO . WHEN DID YOU LAST EAT? ____ . WHEN DID YOU LAST DRINK? ____ . WHAT DID YOU LAST DRINK? ____ . NAME OF PERSON DRIVING YOU HOME? ____ . DO YOU HAVE ANY OTHER QUESTIONS OR CONCERNS NO, DR Swift HAS SENT REQUEST FOR AUTH FOR LUMBAR EPIDURAL . VITAL SIGNS WT 352 LBS, HT 75 IN, BMI 43.99 INDEX, BP 138/86 MM HG, HR 89 /MIN, RR 18 /MIN, TEMP 96.9 F, OXYGEN SAT % 95%, SAFE IN ENV? (Y/N) Y, NA INITIALS AW 1349, REVIEWED BY: ANTHONY. EXAMINATION GENERAL EXAMINATION: LUNGS:LUNG SOUNDS ARE CLEAR . HEART:HEART RATE REGULAR . MUSCULOSKELETAL:*, TRIGGER POINTS:, ELICITED WITH PALPATION OVER CERVICAL SPINOUS PROCESSES AND ACROSS THE TRAPEZIUS MUSCLES BILATERALLY. RESTRICTION OF ROM IS NOTED. MUSCLE SPASM IS NOTED ACROSS TRAPEZIUS BILAT.. LUMBAR SACRAL SPINEMUSCLE STRENGTH TESTING 3/5 BILATERAL. PALPATION: POSITIVE FOR PAIN OVER L/S SPINE. POSITIVE FOR PAIN OVER L/S PARSPINALS. MULTIPLE TRIGGER POINTS ELICITED NECK AND TRAPEZIUS BILAT. . NEUROLOGIC EXAM:CN'S II-XII GROSSLY INTACT.WALKS WITH WIDE BASED ANTALGIC GAIT WITH ASSIST OF CANE AND .VERY UNSTEADY POSITIVE ROMBERG. DIAGNOSTIC: . ASSESSMENTS INTERVERTEBRAL DISC DISORDER WITH RADICULOPATHY OF LUMBAR REGION - M51.16 (PRIMARY) MIGRAINE WITH AURA AND WITHOUT STATUS MIGRAINOSUS, NOT INTRACTABLE - G43.109 TREATMENT INTERVERTEBRAL DISC DISORDER WITH RADICULOPATHY OF LUMBAR REGION CONTINUE COLACE CAPSULE, 100 MG, 1 CAPSULE NEEDED, ORALLY, ONCE A DAY, NOTES: NONE LATELY CONTINUE TOPAMAX TABLET, 100 MG, 1 TABLET, ORALLY FOR PAIN, TWICE A DAY NOTES: DUE TO MIGRAINE HEADACHE REFRACTORY TO ORAL MEDICATION,TRYPTANS ,NSAIDS,AND ANTIDEPRESSANTS,I FEEL ITS MEDICALLY NECESSARY TO USE AIMOVIG INJECTION MONTHLY.DUE TO SIGNIFICANT REDUCTION IN QUALITY OF LIFE AND INABILITY TO ATTEND TO SIMPLE TASKS IT IS MY RECOMMENDATION TO INCREASE FENTANYL PATCH DOSAGE AND RESTART LYRICA.UNCONTROLLED PAIN CAN BE STATISTICALLY LINKED TO INCREASED RISK FOR SEVERE DEPRESSION THAT CAN RESULT IN INCREASED RISK FOR SUICIDE. OTHERS CONTINUE AMITRIPTYLINE HCL TABLET, 50 MG, 3, ORALLY FOR PAIN, ONCE A DAY CONTINUE CYCLOBENZAPRINE HCL TABLET, 10 MG, 1 TABLET NEEDED, ORALLY, Q6-8H PRN FOR SEVERE MUSCLE SPASM PAIN #45 TAB. SHOULD LAST 30 DAYS CONTINUE KETOROLAC TROMETHAMINE TABLET, 10 MG, 1 TABLET WITH FOOD OR MILK NEEDED, ORALLY, Q6H PRN FOR SEVERE PAIN MDD4 REFILL PERCOCET TABLET, 7.5-325 MG, 1, ORALLY, Q6H PRN MDD4, 30 DAY(S), 120, REFILLS 0 INCREASE FENTANYL PATCH 72 HOUR, 75 MCG/HR, 1 PATCH TO SKIN, TRANSDERMAL, Q72 HR=MDD, 30 DAY(S), 10, REFILLS 0 START AIMOVIG SOLUTION AUTO-INJECTOR, 70 MG/ML, 1 ML, SUBCUTANEOUS, MONTHLY, 30 DAY(S), 4, REFILLS 2 PROCEDURES PN WORKMANS' COMP OPINION IN YOUR OPINION, WAS THE INCIDENT THAT THE PATIENT DESCRIBED THE COMPETENT MEDICAL CAUSE OF THIS INJURY/ILLNESS? YES ARE THE PATIENT'S COMPLAINTS CONSISTENT WITH HIS/HER HISTORY OF THE INJURY/ILLNESS? YES IS THE PATIENT'S HISTORY OF THE INJURY/ILLNESS CONSISTENT WITH YOUR OBJECTIVE FINDING? YES WHAT IS THE PERCENTAGE OF TEMPORARY IMPAIRMENT? MARKED = 75% IS THE PATIENT WORKING? NO DOCTOR ON SITE: JAVON VALDEZ MD PROCEDURE CODES FA211 ESTABILISHED PATIENT [facility] FACILITY CHARGE DISPOSITION & COMMUNICATION FOLLOW UP 1 WEEK/NURSING PILL COUNT/ID ELECTRONICALLY SIGNED BY MEKA BAPTISTE ON 01/28/2019 AT 03:51 PM EDT DISCLAIMER : THIS IS A VISIT SUMMARY EXTRACTED FROM THE [employer] CHART. IT IS NOT A COPY OF THE [employer] PROGRESS NOTE. MTDD
== END ==
LOC: M PAIN 13:45
PROVIDERS: ATTEND Nurse Practitioner Family
DX: M51.16 Intervertebral disc disorders with radiculopathy, lumbar region (principal); G89.29 Other chronic pain; G43.109 Migraine with aura, not intractable, without status migrainosus; E11.9 Type 2 diabetes mellitus without complications; I10 Essential (primary) hypertension; E03.9 Hypothyroidism, unspecified; Z88.1 Allergy status to other antibiotic agents; Z88.5 Allergy status to narcotic agent; Z88.8 Allergy status to other drugs, medicaments and biological substances; E66.01 Morbid (severe) obesity due to excess calories; Z68.41 Body mass index [BMI] 40.0-44.9, adult; Z79.84 Long term (current) use of oral hypoglycemic drugs; Z79.891 Long term (current) use of opiate analgesic; Z79.899 Other long term (current) drug therapy

== ENCOUNTER → 2019-02-20 | Outpatient (CLI) | payer OTHER ==
[~2019-02-20] MED LIST changes: +ISOVUE-M 300 61% 15ML VIAL (Q9967) As Ordered ONE; +LIDOCAINE 1% SDV INJ 30 ML VIAL As Ordered ONE; +MIDAZOLAM INJ 2 MG/2 ML VIAL (J2250) As Ordered ONE; +fentaNYL 100 MCG/2 ML INJECTION (J3010) As Ordered ONE; +methylPREDNISolone SUSP 40 MG/ML (DEPO-medrol) VIAL (J1030) As Ordered ONE
--- NOTE | 2019-02-21 08:07 | REP ---
Partial lumbar spine series: Two views . History: Injection procedure for pain. 17 seconds of fluoroscopy time is reported. Findings: A sequence of two fluoroscopically obtained last image hold procedural spot radiographs of the lumbar spine document needle position and contrast injection associated with injection procedure. Electronically Signed by Jabari Rock MD 02/21/2019 07:57 A
--- NOTE | 2019-03-08 23:31 | ECWPNPC ---
PATIENT NAME: ALEX JI : 1965 GENDER: MALE VISIT DATE: 02/20/2019 DISCHARGE DATE: 02/20/191651 VISIT LOCKED DATE TIME: PHYSICIAN: JAVON LEONARDO MD RESOURCE: JAVON LEONARDO MD REASON FOR APPOINTMENT 1. W/C LESI HISTORY OF PRESENT ILLNESS HISTORY OF PRESENT ILLNESS: PAIN THE PATIENT DESCRIBES THE PAIN... FALL RISK SCREENING: SCREENING :NO FALLS REPORTED IN THE LAST YEAR CURRENT MEDICATIONS TAKING ATENOLOL 50 MG TABLET 1 TABLET ORALLY BID, NOTES: 02/19/19 TAKING LEVOTHYROXINE SODIUM 50 MCG TABLET 1 TABLET ORALLY ONCE A DAY, NOTES: 02/20/19599 TAKING TRIAMTERENE-HCTZ 37.5-25 MG TABLET 1 TABLET IN THE MORNING ORALLY ONCE A DAY, NOTES: 02/20/19599 TAKING PINDOLOL 5 MG TABLET 1 TABLET ORALLY QID, NOTES: 02/20/19599 TAKING POTASSIUM CHLORIDE 10 MEQ (PRT) TABLET EXTENDED RELEASE 1 TABLET ORALLY TWICE DAILY, NOTES: 02/20/19599 TAKING METFORMIN HCL ER 750 MG TABLET EXTENDED RELEASE 24 HOUR ORALLY TWICE A DAY, NOTES: 02/19/19 TAKING COLACE 100 MG CAPSULE 1 CAPSULE NEEDED ORALLY ONCE A DAY, NOTES: 02/19/19 TAKING AMITRIPTYLINE HCL 50 MG TABLET 3 ORALLY FOR PAIN ONCE A DAY, NOTES: 02/19/19 TAKING TOPAMAX 100 MG TABLET 1 TABLET ORALLY FOR PAIN TWICE A DAY, NOTES: 02/20/19599 TAKING CYCLOBENZAPRINE HCL 10 MG TABLET 1 TABLET NEEDED ORALLY Q6-8H PRN FOR SEVERE MUSCLE SPASM PAIN #45 TAB. SHOULD LAST 30 DAYS, NOTES: 02/18/19 TAKING PERCOCET 7.5-325 MG TABLET 1 ORALLY Q6H PRN MDD4, NOTES: 02/20/19 0600 TAKING KETOROLAC TROMETHAMINE 10 MG TABLET 1 TABLET WITH FOOD OR MILK NEEDED ORALLY Q6H PRN FOR SEVERE PAIN MDD4, NOTES: 02/16/19 TAKING FENTANYL 50 MCG/HR PATCH 72 HOUR 1 PATCH TO SKIN TRANSDERMAL Q72 HR=MDD, NOTES: 02/18/19 NOT-TAKING AIMOVIG 70 MG/ML SOLUTION AUTO-INJECTOR 1 ML SUBCUTANEOUS MONTHLY MEDICATION LIST REVIEWED AND RECONCILED WITH THE PATIENT PAST MEDICAL HISTORY DM, HTN, CHRONIC PAIN , THYROID DISEASE, GERD, MIGRANES ALLERGIES AZITHROMYCIN: LIP SWELLING - ALLERGY SUMATRIPTAN: FACIAL SWELLING - ALLERGY PROPOXYPHENE: PRICKLY FEELING, RASH, SOB - ALLERGY SURGICAL HISTORY FUSION C3-C4 1994 3 SURGURIES TO LEFT KNEE 1993 FAMILY HISTORY FATHER: 51 YRS, DIAGNOSED WITH DIABETES MOTHER: 50 YRS, CANCER 3 BROTHER(S) , 2 SISTER(S) . 1 SON(S) - HEALTHY. ON BROTHER R\/T PANCREATIC CANCER, ONE SISTER WITH MS \NBROTHER - COMPLICATIONS FROM AGENT ORANGE\NBROTHER - BLOOD CLOT. SOCIAL HISTORY GENERAL: TOBACCO USE ARE YOU A:NONSMOKER HIV / HEP-C SCREENING HIV TEST OFFERED TO PATIENT:YES DATE OFFERED:01/17/2018 TEST ACCEPTED:NO REASON:PATIENT DECLINED BROCHURE PROVIDED TO PATIENTNO HEP-C TEST OFFERED TO PATIENT:YES DATE OFFERED:01/17/2018 TEST ACCEPTED:NO REASON:PATIENT DECLINED LANGUAGE LANGUAGES SPOKEN:S[place]TH SUDANESE DOMESTIC VIOLENCE DO YOU FEEL SAFE IN YOUR ENVIRONMENT?YES RECREATIONAL DRUG USE DRUG USE?NO LEARNING BARRIERS / SPECIAL NEEDS CHANGE FROM LAST VISIT?NO BARRIERS TO LEARNING?NO HEARING IMPAIRED?NO VISION IMPAIRED?YES :CORRECTIVE LENSES COGNITIVELY IMPAIRED?NO READINESS TO LEARN?YES LEARNING PREFERENCES?YES :BOOKLETS, HANDOUTS LEARNING CAPABILITIES PRESENT?YES EMOTIONAL BARRIERS?NO SPECIAL DEVICES?YES :CANE, WHEELCHAIR LUNG CANCER SCREENING SMOKING STATUS:NON SMOKER PAIN CLINIC PFS, CLERGY, PUBLIC HEALTH REFERRALS PFS REFERRAL NEEDED?NO CLERGY REFERRAL NEEDED?NO PUBLIC HEALTH REFERRAL NEEDED?NO WAS THE PROVIDER NOTIFIED OF ANY PERTINENT INFO?YES N/A HAS THE PATIENT BEEN EDUCATED REGARDING HIS/HER PLAN OF CARE?YES HAS THE PATIENT BEEN EDUCATED REGARDING PAIN, THE RISK FOR PAIN, THE IMPORTANCE OF EFFECTIVE PAIN MANAGEMENT, AND THE PAIN ASSESSMENT PROCESS?YES LATEX QUESTIONNAIRE LATEX ALLERGY : HAVE YOU EVER DEVELOPED ANY TYPE OF REACTION AFTER HANDLING LATEX PRODUCTS SUCH RUBBER GLOVES, CONDOMS, DIAPHRAGMS, BALLOONS, SOCKS, OR UNDERWEAR?NO LATEX ALLERGY : HAVE YOU EVER DEVELOPED ANY TYPE OF REACTION DURING OR AFTER DENTAL APPOINTMENT, VAGINAL/RECTAL EXAMINATION, SURGICAL PROCEDURE, OR ANY OTHER EXPOSURE?NO LATEX RISK : HAVE YOU EVER HAD ANY DIFFICULTY BREATHING OR HIVES AFTER EATING OR HANDLING ANY FRUITS, OR VEGETABLES; SUCH KIWI, BANANAS, STONE FRUITS, OR CHESTNUTSNO LATEX RISK : DO YOU HAVE A PREVIOUS PERSONAL HISTORY OF MORE THAN NINE SURGERIES, SPINA BIFIDA, OR REPEATED CATHERTIZATIONS? NO LATEX RISK : ARE YOU FREQUENTLY EXPOSED TO LATEX PRODUCTS IN YOUR OCCUPATION?NO DATE ASKED : 01/27/2019 CAFFEINE CAFFEINE USE?NO ADVANCE DIRECTIVE ADVANCE DIRECTIVE DISCUSSED WITH PATIENT:YES HCP - SHE JI () ZOROASTRIANISM [id number] LATTER DAY ALCOHOL SCREENING DID YOU HAVE A DRINK CONTAINING ALCOHOL IN THE PAST YEAR?NO POINTS0 INTERPRETATIONNEGATIVE REVIEWED 04/15/18 1430 LAS REVIEWED WITH PATIENT 09/27/18 1512 JS. HOSPITALIZATION/MAJOR DIAGNOSTIC PROCEDURE SURGERIES HYPERTENSION HEAD INJURY 03/1986 REVIEW OF SYSTEMS REVIEWED BY: PROVIDER: . CONSTITUTIONAL: ANY CHANGE IN YOUR MEDICAL CONDITION? NO . CHILLS NO . FEVER NO . INFECTION: DO YOU HAVE NEW INFECTIONS? NO . DO YOU HAVE HISTORY OF MRSA? NO . MUSCULOSKELETAL: ANY NEW PATTERNS OF PAIN OR NUMBNESS? YES . GASTROENTEROLOGY: ANY NEW CHANGE IN BOWEL CONTROL? NO . GENITOURINARY: ANY NEW CHANGE IN BLADDER CONTROL? NO . IS THERE A CHANCE YOU COULD BE ? NO . HEMATOLOGY/LYMPH: DO YOU TAKE ANY BLOOD THINNERS? (FOR EXAMPLE- COUMADIN, PLAVIX, AGGRENOX, PLATEL, PRADAXA, OR XARELTO) NO . WHEN WAS YOUR LAST DOSE? DATE: TIME: . NEUROLOGY: HAVE YOU FALLEN IN THE PAST 12 MONTHS? YES . ANY NEW EXTREMITY NUMBNESS OR WEAKNESS? YES . CARDIOLOGY: DO YOU HAVE A PACEMAKER OR DEFIBRILLATOR? NO . RESPIRATORY: HAVE YOU BEEN SICK IN THE PAST WEEK? NO . FEVER NO . FLU LIKE SYMPTOMS? NO . COUGH NO . INTEGUMENTARY: DO YOU HAVE ANY RASHES OR OPEN SORES? NO . ALLERGIC/IMMUNO: ARE YOU ALLERGIC TO IV DYE? NO . ANY NEW ALLERGIES? NO . PSYCHIATRIC: DO YOU HAVE THOUGHTS OF HURTING YOURSELF OR SOMEONE ELSE? NO . ARE YOU ABUSED, NEGLECTED, OR IN AN UNSAFE ENVIRONMENT? NO . ENDOCRINOLOGY: ARE YOU DIABETIC? YES, FS 91 02/20/19599 . OTHER: DO YOU NEED ANY PRESCRIPTIONS? NO . IF YES, PLEASE LIST: ____ . ANY NEW PROBLEMS WITH YOUR MEDICATIONS? NO . WHEN DID YOU LAST EAT? 02/20/19599 . WHEN DID YOU LAST DRINK? 02/20/19599 . WHAT DID YOU LAST DRINK? WATER . NAME OF PERSON DRIVING YOU HOME? SHE . DO YOU HAVE ANY OTHER QUESTIONS OR CONCERNS NO . VITAL SIGNS WT 352 LBS, HT 75 IN, BMI 43.99 INDEX, BP 142/91 MM HG, HR 74 /MIN, RR 18 /MIN, TEMP 97.1 F, OXYGEN SAT % 97%, NA INITIALS SC 13:57, REVIEWED BY: GINO. ASSESSMENTS INTERVERTEBRAL DISC DISORDER WITH RADICULOPATHY OF LUMBAR REGION - M51.16 (PRIMARY) TREATMENT INTERVERTEBRAL DISC DISORDER WITH RADICULOPATHY OF LUMBAR REGION [facility] FLUORO GUIDE SPINE INJECTION (PAIN)[id number] PROCEDURES PN WORKMANS' COMP OPINION IN YOUR OPINION, WAS THE INCIDENT THAT THE PATIENT DESCRIBED THE COMPETENT MEDICAL CAUSE OF THIS INJURY/ILLNESS? YES ARE THE PATIENT'S COMPLAINTS CONSISTENT WITH HIS/HER HISTORY OF THE INJURY/ILLNESS? YES IS THE PATIENT'S HISTORY OF THE INJURY/ILLNESS CONSISTENT WITH YOUR OBJECTIVE FINDING? YES WHAT IS THE PERCENTAGE OF TEMPORARY IMPAIRMENT? MARKED = 75% IS THE PATIENT WORKING? NO DOCTOR ON SITE: JVAON VALDEZ MD PRE PROCEDURE DIAGNOSIS LUMBAR DISC DISORDER WITH RADICULOPATHY POST PROCEDURE DIAGNOSIS LUMBAR DISC DISORDER WITH RADICULOPATHY PROCEDURE LUMBAR EPIDURAL STEROID INJECTION UNDER FLUOROSCOPIC GUIDANCE SURGEON DR. JAVON LEONARDO GLASS ROLLING MACHINE OPERATOR NONE ANESTHESIA LOCAL WITH IV SEDATION PRE PROCEDURE NOTE THE PATIENT HAS A HISTORY OF CHRONIC LOW BACK PAIN. I EVALUATE THE PATIENT AND REVIEWED THE CHART. I WENT OVER THE RISKS, ALTERNATIVES, AND BENEFITS ASSOCIATED WITH THIS PROCEDURE. THE PATIENT WOULD LIKE TO PROCEED AND GIVE CONSENT TO PERFORMED THE PROCEDURE. PATIENT WOULD LIKE TO MOVE FORWARD WITH IV SEDATION DUE TO DISCOMFORT, PAIN AND ANXIETY ASSOCIATED WITH THE PROCEDURE. THE PATIENT DENIES UNEXPLAINABLE WEIGHT LOSS, FEVER, CHILLS, OR NEW CHANGES IN URINARY OR BOWEL CONTROL. DESCRIPTION OF PROCEDURE THE PATIENT WAS BROUGHT TO THE PROCEDURE ROOM AND PLACED IN THE PRONE POSITION. THE LUMBOSACRAL AREA WAS CLEANED WITH BETADINE SOLUTION AND DRAPED ASEPTICALLY. THE PROCEDURE WAS DONE UNDER STERILE CONDITIONS. I CHECKED LATERALITY AND THE LEVEL WHERE THE PROCEDURE WAS GOING TO BE PERFORMED WITH THE PATIENT AND THE SUPPORTING STAFF AT THE MOMENT OF THE TIME OUT IN THE PROCEDURE ROOM. UNDER FLUOROSCOPIC GUIDANCE, THE TARGET POINT WAS SELECTED AT THE INTERLAMINAR LEVEL OF L4-L5. LIDOCAINE WAS USED TO NUMB THE SKIN AND THE SUBCUTANEOUS TISSUE BELOW IT. EPIDURAL TUOHY NEEDLE, 17-GAUGE, WAS ADVANCED UNDER FLUOROSCOPIC GUIDANCE AND FOLLOWING PATIENT FEEDBACK UNTIL THE EPIDURAL SPACE WAS REACHED, 7 CM DEEP INTO THE SKIN BY THE LOSS OF RESISTANCE TECHNIQUE. ISOVUE M DYE 30%, 0.25 ML, WAS INJECTED SHOWING ADEQUATE SPREAD OF THE DYE. THEN, A SOLUTION OF 3 ML OF NORMAL SALINE WITH DEPO-MEDROL 60 MG WAS INJECTED SLOWLY FOLLOWING PATIENT FEEDBACK. PATIENT RECEIVED VERSED 2 MG AND FENTANYL 300 MCG IV DIVIDED DOSES. THERE WAS NO EVIDENCE OF BLOOD, PARESTHESIA OR CEREBROSPINAL FLUID DURING THE PROCEDURE. THE PATIENT WAS SENT TO THE RECOVERY ROOM. THE PATIENT WAS MOVING THE EXTREMITIES AND DOING WELL. THERE WAS NO COMPLICATION DURING THE PROCEDURE. FLUOROSCOPY TIME WAS 17 SECONDS. FACE TO FACE TIME WAS 16 MINUTES. POST PROCEDURE NOTE THE PATIENT WILL BE SEEN IN A FOLLOW UP IN THE NEXT FEW WEEKS. INSTRUCTIONS WERE GIVEN, QUESTIONS WERE ANSWERED, AND THE PATIENT EXPRESSED UNDERSTANDING AND AGREES WITH THE PLAN. I, ALICIA DEL VALLE, DOCUMENTED THE ABOVE INFORMATION ACTING A SCRIBE FOR DR. LEONARDO. I HAVE REVIEWED THE ABOVE DOCUMENT, WRITTEN BY ALICIA DICKIBAlanna AND I VERIFY THAT IT IS ACCURATE. PROCEDURE CODES 6045F RADXPS IN END [id number] PXD [id number] LUMBAR/SACRAL W/ IMAGING [id number] MOD SED SAME PHYS/QHP 5/>YRS DISPOSITION & COMMUNICATION FOLLOW UP 2 WEEKS ELECTRONICALLY SIGNED BY JAVON LEONARDO MD, MD ON 03/08/2019 AT 04:53 PM EDT DISCLAIMER : THIS IS A VISIT SUMMARY EXTRACTED FROM THE [employer] CHART. IT IS NOT A COPY OF THE [employer] PROGRESS NOTE. MTDD
== END ==
LOC: M PAIN 13:15
PROVIDERS: ATTEND Anesthesiology
DX: G89.29 Other chronic pain (principal); M51.16 Intervertebral disc disorders with radiculopathy, lumbar region; E11.9 Type 2 diabetes mellitus without complications; I10 Essential (primary) hypertension; E07.9 Disorder of thyroid, unspecified; G43.909 Migraine, unspecified, not intractable, without status migrainosus; E66.01 Morbid (severe) obesity due to excess calories; Z68.41 Body mass index [BMI] 40.0-44.9, adult; Z88.1 Allergy status to other antibiotic agents; Z79.84 Long term (current) use of oral hypoglycemic drugs; Z79.891 Long term (current) use of opiate analgesic; Z79.899 Other long term (current) drug therapy; Z88.8 Allergy status to other drugs, medicaments and biological substances; Z87.820 Personal history of traumatic brain injury
CPT/HCPCS: 62323; 99152; J1030; J2250; J3010; Q9967

== ENCOUNTER → 2019-03-20 | Outpatient (CLI) | payer OTHER ==
[~2019-03-20] MED LIST changes: -ISOVUE-M 300 61% 15ML VIAL (Q9967) As Ordered ONE; -LIDOCAINE 1% SDV INJ 30 ML VIAL As Ordered ONE; -MIDAZOLAM INJ 2 MG/2 ML VIAL (J2250) As Ordered ONE; -fentaNYL 100 MCG/2 ML INJECTION (J3010) As Ordered ONE; -methylPREDNISolone SUSP 40 MG/ML (DEPO-medrol) VIAL (J1030) As Ordered ONE
--- NOTE | 2019-04-08 01:33 | ECWPNPC ---
PATIENT NAME: ALEX JI : 1965 GENDER: MALE VISIT DATE: 03/20/2019 DISCHARGE DATE: 03/20/19 0000 VISIT LOCKED DATE TIME: PHYSICIAN: BLANE EGUENE RESOURCE: BLANE EUGENE REASON FOR APPOINTMENT 1. POST PROC/LESI HISTORY OF PRESENT ILLNESS HISTORY OF PRESENT ILLNESS: HERE FOR POST PROCEDURE F/U.HAD LESI 02/20/19.THIS HELPED WITH LBP AND FEELING HAS RETURNED IN LEFT TOES.REPORTING AN INCREASE IN HEAVINESS OF LEGS OVER THE PAST 2 MONTHS.FINDING IT DIFFICULT TO TOLERATE WALKING SHORT DISTANCES.HAS BEEN WAITING FOR BOTOX SINCE FEBRUARY AND THE WAITING HAS ESCALATED HIS PAIN.RATING PAIN VAS 7/10.PATIENT IS SUFFERING FROM 24HR CHRONIC PAIN THAT IS DISRUPTING HIS ABILITY TO TOLERATE MINIMAL ADL'S. PAIN THE PATIENT DESCRIBES THE PAIN... FALL RISK SCREENING: SCREENING :NO FALLS REPORTED IN THE LAST YEAR CURRENT MEDICATIONS TAKING ATENOLOL 50 MG TABLET 1 TABLET ORALLY BID TAKING LEVOTHYROXINE SODIUM 50 MCG TABLET 1 TABLET ORALLY ONCE A DAY TAKING TRIAMTERENE-HCTZ 37.5-25 MG TABLET 1 TABLET IN THE MORNING ORALLY ONCE A DAY TAKING PINDOLOL 5 MG TABLET 1 TABLET ORALLY QID TAKING POTASSIUM CHLORIDE 10 MEQ (PRT) TABLET EXTENDED RELEASE 1 TABLET ORALLY TWICE DAILY TAKING METFORMIN HCL ER 750 MG TABLET EXTENDED RELEASE 24 HOUR ORALLY TWICE A DAY TAKING COLACE 100 MG CAPSULE 1 CAPSULE NEEDED ORALLY ONCE A DAY TAKING AMITRIPTYLINE HCL 50 MG TABLET 3 ORALLY FOR PAIN ONCE A DAY TAKING TOPAMAX 100 MG TABLET 1 TABLET ORALLY FOR PAIN TWICE A DAY TAKING CYCLOBENZAPRINE HCL 10 MG TABLET 1 TABLET NEEDED ORALLY Q6-8H PRN FOR SEVERE MUSCLE SPASM PAIN #45 TAB. SHOULD LAST 30 DAYS TAKING PERCOCET 7.5-325 MG TABLET 1 ORALLY Q6H PRN MDD4 TAKING KETOROLAC TROMETHAMINE 10 MG TABLET 1 TABLET WITH FOOD OR MILK NEEDED ORALLY Q6H PRN FOR SEVERE PAIN MDD4 TAKING FENTANYL 50 MCG/HR PATCH 72 HOUR 1 PATCH TO SKIN TRANSDERMAL Q72 HR=MDD NOT-TAKING AIMOVIG 70 MG/ML SOLUTION AUTO-INJECTOR 1 ML SUBCUTANEOUS MONTHLY MEDICATION LIST REVIEWED AND RECONCILED WITH THE PATIENT PAST MEDICAL HISTORY DM, HTN, CHRONIC PAIN , THYROID DISEASE, GERD, MIGRANES ALLERGIES AZITHROMYCIN: LIP SWELLING - ALLERGY SUMATRIPTAN: FACIAL SWELLING - ALLERGY PROPOXYPHENE: PRICKLY FEELING, RASH, SOB - ALLERGY SURGICAL HISTORY FUSION C3-C4 1994 3 SURGURIES TO LEFT KNEE 1993 FAMILY HISTORY FATHER: 51 YRS, DIAGNOSED WITH DIABETES MOTHER: 50 YRS, CANCER 3 BROTHER(S) , 2 SISTER(S) . 1 SON(S) - HEALTHY. ON BROTHER R\/T PANCREATIC CANCER, ONE SISTER WITH MS \NBROTHER - COMPLICATIONS FROM AGENT ORANGE\NBROTHER - BLOOD CLOT. SOCIAL HISTORY GENERAL: TOBACCO USE ARE YOU A:NONSMOKER HIV / HEP-C SCREENING HIV TEST OFFERED TO PATIENT:YES DATE OFFERED:01/17/2018 TEST ACCEPTED:NO REASON:PATIENT DECLINED BROCHURE PROVIDED TO PATIENTNO HEP-C TEST OFFERED TO PATIENT:YES DATE OFFERED:01/17/2018 TEST ACCEPTED:NO REASON:PATIENT DECLINED LANGUAGE LANGUAGES SPOKEN:MONGOLIAN DOMESTIC VIOLENCE DO YOU FEEL SAFE IN YOUR ENVIRONMENT?YES RECREATIONAL DRUG USE DRUG USE?NO LEARNING BARRIERS / SPECIAL NEEDS CHANGE FROM LAST VISIT?NO BARRIERS TO LEARNING?NO HEARING IMPAIRED?NO VISION IMPAIRED?YES :CORRECTIVE LENSES COGNITIVELY IMPAIRED?NO READINESS TO LEARN?YES LEARNING PREFERENCES?YES :BOOKLETS, HANDOUTS LEARNING CAPABILITIES PRESENT?YES EMOTIONAL BARRIERS?NO SPECIAL DEVICES?YES :CANE, WHEELCHAIR LUNG CANCER SCREENING SMOKING STATUS:NON SMOKER PAIN CLINIC PFS, CLERGY, PUBLIC HEALTH REFERRALS PFS REFERRAL NEEDED?NO CLERGY REFERRAL NEEDED?NO PUBLIC HEALTH REFERRAL NEEDED?NO WAS THE PROVIDER NOTIFIED OF ANY PERTINENT INFO?YES N/A HAS THE PATIENT BEEN EDUCATED REGARDING HIS/HER PLAN OF CARE?YES HAS THE PATIENT BEEN EDUCATED REGARDING PAIN, THE RISK FOR PAIN, THE IMPORTANCE OF EFFECTIVE PAIN MANAGEMENT, AND THE PAIN ASSESSMENT PROCESS?YES LATEX QUESTIONNAIRE LATEX ALLERGY : HAVE YOU EVER DEVELOPED ANY TYPE OF REACTION AFTER HANDLING LATEX PRODUCTS SUCH RUBBER GLOVES, CONDOMS, DIAPHRAGMS, BALLOONS, SOCKS, OR UNDERWEAR?NO LATEX ALLERGY : HAVE YOU EVER DEVELOPED ANY TYPE OF REACTION DURING OR AFTER DENTAL APPOINTMENT, VAGINAL/RECTAL EXAMINATION, SURGICAL PROCEDURE, OR ANY OTHER EXPOSURE?NO LATEX RISK : HAVE YOU EVER HAD ANY DIFFICULTY BREATHING OR HIVES AFTER EATING OR HANDLING ANY FRUITS, OR VEGETABLES; SUCH KIWI, BANANAS, STONE FRUITS, OR CHESTNUTSNO LATEX RISK : DO YOU HAVE A PREVIOUS PERSONAL HISTORY OF MORE THAN NINE SURGERIES, SPINA BIFIDA, OR REPEATED CATHERTIZATIONS? NO LATEX RISK : ARE YOU FREQUENTLY EXPOSED TO LATEX PRODUCTS IN YOUR OCCUPATION?NO DATE ASKED : 01/27/2019 CAFFEINE CAFFEINE USE?NO ADVANCE DIRECTIVE ADVANCE DIRECTIVE DISCUSSED WITH PATIENT:YES HCP - SEH JI () ALEVISM [id number] UATSDIN ALCOHOL SCREENING DID YOU HAVE A DRINK CONTAINING ALCOHOL IN THE PAST YEAR?NO POINTS0 INTERPRETATIONNEGATIVE REVIEWED 04/15/18 1430 LAS REVIEWED WITH PATIENT 09/27/18 1512 JS. HOSPITALIZATION/MAJOR DIAGNOSTIC PROCEDURE SURGERIES HYPERTENSION HEAD INJURY 03/1986 REVIEW OF SYSTEMS REVIEWED BY: PROVIDER: BLANE ACKERMAN . CONSTITUTIONAL: ANY CHANGE IN YOUR MEDICAL CONDITION? NO . CHILLS NO . FEVER NO . INFECTION: DO YOU HAVE NEW INFECTIONS? NO . DO YOU HAVE HISTORY OF MRSA? NO . MUSCULOSKELETAL: ANY NEW PATTERNS OF PAIN OR NUMBNESS? YES, PAIN IS BETTER, CAN FEEL TOES AGAIN BUT LEGS ARE WEAK . GASTROENTEROLOGY: ANY NEW CHANGE IN BOWEL CONTROL? NO . GENITOURINARY: ANY NEW CHANGE IN BLADDER CONTROL? NO . IS THERE A CHANCE YOU COULD BE ? NO . HEMATOLOGY/LYMPH: DO YOU TAKE ANY BLOOD THINNERS? (FOR EXAMPLE- COUMADIN, PLAVIX, AGGRENOX, PLATEL, PRADAXA, OR XARELTO) NO . WHEN WAS YOUR LAST DOSE? DATE: TIME: . NEUROLOGY: HAVE YOU FALLEN IN THE PAST 12 MONTHS? YES, FELL SUNDAY FROM LEG WEAKNESS, PT DENIES INJURY . ANY NEW EXTREMITY NUMBNESS OR WEAKNESS? YES, LEG WEAKNESS BILAT . CARDIOLOGY: DO YOU HAVE A PACEMAKER OR DEFIBRILLATOR? NO . RESPIRATORY: HAVE YOU BEEN SICK IN THE PAST WEEK? NO . FEVER NO . FLU LIKE SYMPTOMS? NO . COUGH NO . INTEGUMENTARY: DO YOU HAVE ANY RASHES OR OPEN SORES? NO . ALLERGIC/IMMUNO: ARE YOU ALLERGIC TO IV DYE? NO . ANY NEW ALLERGIES? NO . PSYCHIATRIC: DO YOU HAVE THOUGHTS OF HURTING YOURSELF OR SOMEONE ELSE? NO . ARE YOU ABUSED, NEGLECTED, OR IN AN UNSAFE ENVIRONMENT? NO . ENDOCRINOLOGY: ARE YOU DIABETIC? YES . OTHER: DO YOU NEED ANY PRESCRIPTIONS? NO . IF YES, PLEASE LIST: ____ . ANY NEW PROBLEMS WITH YOUR MEDICATIONS? NO . WHEN DID YOU LAST EAT? ____ . WHEN DID YOU LAST DRINK? ____ . WHAT DID YOU LAST DRINK? ____ . NAME OF PERSON DRIVING YOU HOME? ____ . DO YOU HAVE ANY OTHER QUESTIONS OR CONCERNS NO . VITAL SIGNS WT 352 LBS, HT 75 IN, BMI 43.99 INDEX, BP 142/95 MM HG, HR 81 /MIN, RR 18 /MIN, TEMP 97.8 F, OXYGEN SAT % 96%, NA INITIALS SC 10:00, REVIEWED BY: GINO. EXAMINATION GENERAL EXAMINATION: LUNGS:LUNG SOUNDS ARE CLEAR . HEART:HEART RATE REGULAR . MUSCULOSKELETAL:*, TRIGGER POINTS:, ELICITED WITH PALPATION OVER CERVICAL SPINOUS PROCESSES AND ACROSS THE TRAPEZIUS MUSCLES BILATERALLY. RESTRICTION OF ROM IS NOTED. MUSCLE SPASM IS NOTED ACROSS TRAPEZIUS BILAT.. LUMBAR SACRAL SPINEMUSCLE STRENGTH TESTING 3/5 BILATERAL. PALPATION: POSITIVE FOR PAIN OVER L/S SPINE. POSITIVE FOR PAIN OVER L/S PARSPINALS. MULTIPLE TRIGGER POINTS ELICITED NECK AND TRAPEZIUS BILAT. . NEUROLOGIC EXAM:CN'S II-XII GROSSLY INTACT.WALKS WITH WIDE BASED ANTALGIC GAIT WITH ASSIST OF CANE AND .VERY UNSTEADY POSITIVE ROMBERG. DIAGNOSTIC: . ASSESSMENTS INTERVERTEBRAL DISC DISORDERS WITH RADICULOPATHY, LUMBOSACRAL REGION - M51.17 (PRIMARY) CHRONIC MIGRAINE WITHOUT AURA WITHOUT STATUS MIGRAINOSUS, NOT INTRACTABLE - G43.709 CHRONIC PAIN DISORDER - G89.4 TREATMENT INTERVERTEBRAL DISC DISORDERS WITH RADICULOPATHY, LUMBOSACRAL REGION CONTINUE PERCOCET TABLET, 7.5-325 MG, 1, ORALLY, Q6H PRN MDD4 CONTINUE KETOROLAC TROMETHAMINE TABLET, 10 MG, 1 TABLET WITH FOOD OR MILK NEEDED, ORALLY, Q6H PRN FOR SEVERE PAIN MDD4 CONTINUE FENTANYL PATCH 72 HOUR, 50 MCG/HR, 1 PATCH TO SKIN, TRANSDERMAL, Q72 HR=MDD NOTES: ISTOP REGISTRY REVIEWED AND DEMONSTRATES COMPLLIANCE. BRINGS IN MEDICATIONS WHICH IS APPROPRIATE FOR WHAT WAS DISPENSED. RECENT URINE TOXICOLOGY REVIEWED. NO UNAUTHORIZED MEDICATIONS. NO ILLICIT SUBSTANCES AND PRESCRIBED MEDICATIONS WERE PRESENT. , RISKS AND BENEFITS OF NARCOTIC/OPIOD MEDICATIONS WERE REVIEWED WITH PATIENT - THIS INCLUDES BUT IS NOT LIMITED TO RISK OF DEPENDANCE/DEVELOPMENT OF ADDICTION, MOOD DISTURBANCE AND DEPRESSION, OSTEOPOROSIS, HORMONAL AND LABIDAL CHANGES, RESPIRATORY DEPRESSION AND . PATIENT IS ADVISED NOT TO DRIVE OR DRINK ALCOHOL WHILE ON THESE MEDICATIONSW/C REQUEST BOTOX. PROCEDURES PN WORKMANS' COMP OPINION IN YOUR OPINION, WAS THE INCIDENT THAT THE PATIENT DESCRIBED THE COMPETENT MEDICAL CAUSE OF THIS INJURY/ILLNESS? YES ARE THE PATIENT'S COMPLAINTS CONSISTENT WITH HIS/HER HISTORY OF THE INJURY/ILLNESS? YES IS THE PATIENT'S HISTORY OF THE INJURY/ILLNESS CONSISTENT WITH YOUR OBJECTIVE FINDING? YES WHAT IS THE PERCENTAGE OF TEMPORARY IMPAIRMENT? MARKED = 75% IS THE PATIENT WORKING? NO DOCTOR ON SITE: JAVON VALDEZ MD PROCEDURE CODES FA211 ESTABILISHED PATIENT [facility] CHARGE DISPOSITION & COMMUNICATION FOLLOW UP W/C REQUEST BOTOX (REASON: POST BOTOX) ELECTRONICALLY SIGNED BY MEKA BAPTISTE ON 04/07/2019 AT 07:42 AM EDT DISCLAIMER : THIS IS A VISIT SUMMARY EXTRACTED FROM THE [employer] CHART. IT IS NOT A COPY OF THE [email or web address] PROGRESS NOTE. NAHEED
== END ==
LOC: M PAIN 09:30
PROVIDERS: ATTEND Nurse Practitioner Family
DX: M51.17 Intervertebral disc disorders with radiculopathy, lumbosacral region (principal); G43.709 Chronic migraine without aura, not intractable, without status migrainosus; G89.4 Chronic pain syndrome; E11.9 Type 2 diabetes mellitus without complications; I10 Essential (primary) hypertension; Z79.84 Long term (current) use of oral hypoglycemic drugs; Z79.891 Long term (current) use of opiate analgesic; Z79.899 Other long term (current) drug therapy; Z88.8 Allergy status to other drugs, medicaments and biological substances

== ENCOUNTER → 2019-04-08 | Outpatient (CLI) | payer OTHER ==
[~2019-04-08] MED LIST changes: +BOTULINUM INJ 100 UNITS (J0585) IM ONE; +diazePAM 5 MG TAB As Ordered ONE; +diphenhydrAMINE 25 MG CAP As Ordered ONE; +oxyCODONE 5MG TAB As Ordered ONE
--- NOTE | 2019-04-17 00:59 | ECWPNPC ---
PATIENT NAME: ALEX JI : 1965 GENDER: MALE VISIT DATE: 04/08/2019 DISCHARGE DATE: 04/08/19 1500 VISIT LOCKED DATE TIME: PHYSICIAN: JAVON LEONARDO MD RESOURCE: JAVON LEONARDO MD REASON FOR APPOINTMENT 1. BOTOX HISTORY OF PRESENT ILLNESS HISTORY OF PRESENT ILLNESS: PAIN THE PATIENT DESCRIBES THE PAIN... FALL RISK SCREENING: SCREENING :NO FALLS REPORTED IN THE LAST YEAR CURRENT MEDICATIONS TAKING ATENOLOL 50 MG TABLET 1 TABLET ORALLY BID, NOTES: 04/08/19 1000 TAKING LEVOTHYROXINE SODIUM 50 MCG TABLET 1 TABLET ORALLY ONCE A DAY, NOTES: 04/08/19 1000 TAKING TRIAMTERENE-HCTZ 37.5-25 MG TABLET 1 TABLET IN THE MORNING ORALLY ONCE A DAY, NOTES: 04/08/19 0500 TAKING PINDOLOL 5 MG TABLET 1 TABLET ORALLY QID, NOTES: 04/08/19 1000 TAKING POTASSIUM CHLORIDE 10 MEQ (PRT) TABLET EXTENDED RELEASE 1 TABLET ORALLY TWICE DAILY, NOTES: 04/08/19 0500 TAKING METFORMIN HCL ER 750 MG TABLET EXTENDED RELEASE 24 HOUR ORALLY TWICE A DAY, NOTES: 04/07/19 TAKING COLACE 100 MG CAPSULE 1 CAPSULE NEEDED ORALLY ONCE A DAY, NOTES: 04/07/19 TAKING TOPAMAX 100 MG TABLET 1 TABLET ORALLY FOR PAIN TWICE A DAY, NOTES: 04/08/19 17489 TAKING CYCLOBENZAPRINE HCL 10 MG TABLET 1 TABLET NEEDED ORALLY Q6-8H PRN FOR SEVERE MUSCLE SPASM PAIN #45 TAB. SHOULD LAST 30 DAYS, NOTES: 04/07/19 TAKING KETOROLAC TROMETHAMINE 10 MG TABLET 1 TABLET WITH FOOD OR MILK NEEDED ORALLY Q6H PRN FOR SEVERE PAIN MDD4, NOTES: SUNDAY TAKING FENTANYL 50 MCG/HR PATCH 72 HOUR 1 PATCH TO SKIN TRANSDERMAL Q72 HR=MDD, NOTES: 04/07/19 TAKING PERCOCET 7.5-325 MG TABLET 1 ORALLY Q6H PRN MDD4, NOTES: 04/08/19 1000 TAKING AMITRIPTYLINE HCL 50 MG TABLET 3 ORALLY FOR PAIN ONCE A DAY, NOTES: 04/07/19 NOT-TAKING AIMOVIG 70 MG/ML SOLUTION AUTO-INJECTOR 1 ML SUBCUTANEOUS MONTHLY MEDICATION LIST REVIEWED AND RECONCILED WITH THE PATIENT PAST MEDICAL HISTORY DM, HTN, CHRONIC PAIN , THYROID DISEASE, GERD, MIGRANES ALLERGIES AZITHROMYCIN: LIP SWELLING - ALLERGY SUMATRIPTAN: FACIAL SWELLING - ALLERGY PROPOXYPHENE: PRICKLY FEELING, RASH, SOB - ALLERGY SURGICAL HISTORY FUSION C3-C4 1994 3 SURGURIES TO LEFT KNEE 1993 FAMILY HISTORY FATHER: 51 YRS, DIAGNOSED WITH DIABETES MOTHER: 50 YRS, CANCER 3 BROTHER(S) , 2 SISTER(S) . 1 SON(S) - HEALTHY. ON BROTHER R\/T PANCREATIC CANCER, ONE SISTER WITH MS \NBROTHER - COMPLICATIONS FROM AGENT ORANGE\NBROTHER - BLOOD CLOT. SOCIAL HISTORY GENERAL: TOBACCO USE ARE YOU A:NONSMOKER HIV / HEP-C SCREENING HIV TEST OFFERED TO PATIENT:YES DATE OFFERED:01/17/2018 TEST ACCEPTED:NO REASON:PATIENT DECLINED BROCHURE PROVIDED TO PATIENTNO HEP-C TEST OFFERED TO PATIENT:YES DATE OFFERED:01/17/2018 TEST ACCEPTED:NO REASON:PATIENT DECLINED LANGUAGE LANGUAGES SPOKEN:KISWAHILI DOMESTIC VIOLENCE DO YOU FEEL SAFE IN YOUR ENVIRONMENT?YES RECREATIONAL DRUG USE DRUG USE?NO LEARNING BARRIERS / SPECIAL NEEDS CHANGE FROM LAST VISIT?NO BARRIERS TO LEARNING?NO HEARING IMPAIRED?NO VISION IMPAIRED?YES :CORRECTIVE LENSES COGNITIVELY IMPAIRED?NO READINESS TO LEARN?YES LEARNING PREFERENCES?YES :BOOKLETS, HANDOUTS LEARNING CAPABILITIES PRESENT?YES EMOTIONAL BARRIERS?NO SPECIAL DEVICES?YES :CANE, WHEELCHAIR LUNG CANCER SCREENING SMOKING STATUS:NON SMOKER PAIN CLINIC PFS, CLERGY, PUBLIC HEALTH REFERRALS PFS REFERRAL NEEDED?NO CLERGY REFERRAL NEEDED?NO PUBLIC HEALTH REFERRAL NEEDED?NO WAS THE PROVIDER NOTIFIED OF ANY PERTINENT INFO?YES N/A HAS THE PATIENT BEEN EDUCATED REGARDING HIS/HER PLAN OF CARE?YES HAS THE PATIENT BEEN EDUCATED REGARDING PAIN, THE RISK FOR PAIN, THE IMPORTANCE OF EFFECTIVE PAIN MANAGEMENT, AND THE PAIN ASSESSMENT PROCESS?YES LATEX QUESTIONNAIRE LATEX ALLERGY : HAVE YOU EVER DEVELOPED ANY TYPE OF REACTION AFTER HANDLING LATEX PRODUCTS SUCH RUBBER GLOVES, CONDOMS, DIAPHRAGMS, BALLOONS, SOCKS, OR UNDERWEAR?NO LATEX ALLERGY : HAVE YOU EVER DEVELOPED ANY TYPE OF REACTION DURING OR AFTER DENTAL APPOINTMENT, VAGINAL/RECTAL EXAMINATION, SURGICAL PROCEDURE, OR ANY OTHER EXPOSURE?NO LATEX RISK : HAVE YOU EVER HAD ANY DIFFICULTY BREATHING OR HIVES AFTER EATING OR HANDLING ANY FRUITS, OR VEGETABLES; SUCH KIWI, BANANAS, STONE FRUITS, OR CHESTNUTSNO LATEX RISK : DO YOU HAVE A PREVIOUS PERSONAL HISTORY OF MORE THAN NINE SURGERIES, SPINA BIFIDA, OR REPEATED CATHERTIZATIONS? NO LATEX RISK : ARE YOU FREQUENTLY EXPOSED TO LATEX PRODUCTS IN YOUR OCCUPATION?NO DATE ASKED : 01/27/2019 CAFFEINE CAFFEINE USE?NO ADVANCE DIRECTIVE ADVANCE DIRECTIVE DISCUSSED WITH PATIENT:YES HCP - SHE JI () ORIENTAL ORTHODOX [id number] JAINISM ALCOHOL SCREENING DID YOU HAVE A DRINK CONTAINING ALCOHOL IN THE PAST YEAR?NO POINTS0 INTERPRETATIONNEGATIVE REVIEWED 04/15/18 1430 LAS REVIEWED WITH PATIENT 09/27/18 1512 JS. HOSPITALIZATION/MAJOR DIAGNOSTIC PROCEDURE SURGERIES HYPERTENSION HEAD INJURY 03/1986 REVIEW OF SYSTEMS REVIEWED BY: PROVIDER: . CONSTITUTIONAL: ANY CHANGE IN YOUR MEDICAL CONDITION? NO . CHILLS NO . FEVER NO . INFECTION: DO YOU HAVE NEW INFECTIONS? NO . DO YOU HAVE HISTORY OF MRSA? NO . MUSCULOSKELETAL: ANY NEW PATTERNS OF PAIN OR NUMBNESS? NO . GASTROENTEROLOGY: ANY NEW CHANGE IN BOWEL CONTROL? NO . GENITOURINARY: ANY NEW CHANGE IN BLADDER CONTROL? NO . IS THERE A CHANCE YOU COULD BE ? NO . HEMATOLOGY/LYMPH: DO YOU TAKE ANY BLOOD THINNERS? (FOR EXAMPLE- COUMADIN, PLAVIX, AGGRENOX, PLATEL, PRADAXA, OR XARELTO) NO . WHEN WAS YOUR LAST DOSE? DATE: TIME: . NEUROLOGY: HAVE YOU FALLEN IN THE PAST 12 MONTHS? NO . ANY NEW EXTREMITY NUMBNESS OR WEAKNESS? NO . CARDIOLOGY: DO YOU HAVE A PACEMAKER OR DEFIBRILLATOR? NO . RESPIRATORY: HAVE YOU BEEN SICK IN THE PAST WEEK? NO . FEVER NO . FLU LIKE SYMPTOMS? NO . COUGH NO . INTEGUMENTARY: DO YOU HAVE ANY RASHES OR OPEN SORES? NO . ALLERGIC/IMMUNO: ARE YOU ALLERGIC TO IV DYE? NO . ANY NEW ALLERGIES? NO . PSYCHIATRIC: DO YOU HAVE THOUGHTS OF HURTING YOURSELF OR SOMEONE ELSE? NO . ARE YOU ABUSED, NEGLECTED, OR IN AN UNSAFE ENVIRONMENT? NO . ENDOCRINOLOGY: ARE YOU DIABETIC? YES, FS 89 04/08/19 0500 . OTHER: DO YOU NEED ANY PRESCRIPTIONS? NO . IF YES, PLEASE LIST: ____ . ANY NEW PROBLEMS WITH YOUR MEDICATIONS? NO . WHEN DID YOU LAST EAT? 04/08/19 0500 . WHEN DID YOU LAST DRINK? 04/08/19 0500 . WHAT DID YOU LAST DRINK? WATER . NAME OF PERSON DRIVING YOU HOME? DILCIA . DO YOU HAVE ANY OTHER QUESTIONS OR CONCERNS NO . VITAL SIGNS WT 352 LBS, HT 75 IN, BMI 43.99 INDEX, BP 154/91 MM HG, HR 75 /MIN, RR 18 /MIN, TEMP 96.0 F, OXYGEN SAT % 97%, NA INITIALS SC 11:46. ASSESSMENTS CHRONIC MIGRAINE - G43.709 (PRIMARY) PROCEDURES PN BOTOX INJECTIONS SUBSEQUENT INJECTIONS PRE PROCEDURE DIAGNOSIS CHRONIC MIGRAINE HEADACHES. POST PROCEDURE DIAGNOSIS CHRONIC MIGRAINE HEADACHES. PROCEDURE BOTOX INJECTION AT THE HEAD, NECK AND SHOULDERS. SURGEON DR. JAVON LEONARDO MANAGER PACKAGING NONE ANESTHESIA NONE PRE PROCEDURE NOTE THE PATIENT HAS HISTORY OF CHRONIC MIGRAINE HEADACHES. I EVALUATE THE PATIENT AND REVIEWED THE CHART. I WENT OVER THE RISKS, ALTERNATIVES, AND BENEFITS ASSOCIATED WITH THIS PROCEDURE. THE PATIENT WOULD LIKE TO PROCEED AND GIVE CONSENT TO PERFORMED THE PROCEDURE. THE PATIENT DENIES UNEXPLAINABLE WEIGHT LOSS, FEVER, CHILLS, OR NEW CHANGES IN URINARY OR BOWEL CONTROL. THE PATIENT DID A BOTOX INJECTION AT THE HEAD, NECK AND SHOULDER IN THE PAST AND EXPRESSED MORE THAN 50% REDUCTION ON THE FREQUENCY AND INTENSITY OF THE HEADACHES. HIS LAST BOTOX WAS 6 MONTHS AGO AND HEADACHES ARE COMING BACK. THE PATIENT EXPRESS THAT THE USE OF BOTOX HAS REDUCE SIGNIFICANTLY THE SEVERITY OF THE HEADACHES IN THE PAST AND EXPRESSED THAT WANT TO RECEIVE THIS PROCEDURE AGAIN TODAY DESCRIPTION OF PROCEDURE THE PATIENTS WAS BROUGHT TO THE PROCEDURE ROOM AND PLACED IN THE SUPINE POSITION. I CHECKED LATERALITY AND THE AREAS WHERE THE PROCEDURE WAS GOING TO BE PERFORMED WITH THE PATIENT AND THE SUPPORTING STAFF AT THE MOMENT OF THE TIME OUT IN THE PROCEDURE ROOM. FOR THE PROCEDURE I USED A SOLUTION OF 5 UNITS OF BOTOX PER EACH 0.1 ML OF THE SOLUTION. I USED A 30-GAUGE NEEDLE TO INJECT THE SOLUTION AT THE SELECTED LOCATIONS. I INJECTED FIRST THE RIGHT AND LEFT MARBLE INSTALLER SUPERVISOR MUSCLES. THE LANDMARK FOR BOTH INJECTIONS WAS APPROXIMATELY 1 CM ABOVE THE SUPERIOR MEDIAL EDGE OF THE EYEBROW. AFTER THESE TWO INJECTIONS, I INJECTED THE PROCERUS MUSCLE AT THE MIDLINE POINT BETWEEN THESE FIRST TWO INJECTIONS. THEN I PROCEEDED TO INJECT THE RIGHT AND LEFT FRONTALIS MUSCLE. TWO INJECTIONS WERE DONE IN EACH SIDE. THE FIRST INJECTION WAS DONE APPROXIMATELY 2 CM ABOVE THE FIRST INJECTION OF THE MARBLE INSTALLER SUPERVISOR. THE SECOND INJECTION WAS DONE APPROXIMATELY 1.5 CM LATERAL TO THIS FIST INJECTION OF THE FRONTALIS OF EACH SIDE. AFTER THE INJECTIONS OVER THE FOREHEAD WERE DONE, THE PATIENT'S HEAD WAS TURNED TO THE LEFT SIDE AND WE STARTED TO WORK WITH THE RIGHT TEMPORALIS MUSCLE. FIRST INJECTION WAS DONE IN A VERTICAL LINE OF THE TRAGUS APPROXIMATELY 3 CM ABOVE THE TRAGUS. THE SECOND INJECTION WAS DONE APPROXIMATELY 2 CM ABOVE THE FIRST INJECTION. THE THIRD INJECTION WAS DONE APPROXIMATELY 1 CM FRONT SARGENT FROM THIS VERTICAL LINE CREATED AT THE LEVEL OF THE TRAGUS, CORRECTION BETWEEN THESE TWO INJECTIONS. THE FOURTH INJECTION WAS DONE APPROXIMATELY 1.5 CM BACK FROM THE SECOND INJECTION TO THE TEMPORALIS IN LINE TO THE MIDPORTION OF THE EAR. THEN, WE PROCEEDED TO INJECT THE LEFT TEMPORALIS MUSCLE. WE CLEANED THE AREA WITH ALCOHOL AND PROCEEDED TO PERFORM THE SAME FOR INJECTIONS DESCRIBED ABOVE BUT IN THE LEFT TEMPORALIS MUSCLE USING THE SAME LANDMARKS. AFTER THESE INJECTIONS WERE DONE, THE PATIENT WAS SEATED. FIRST, WE STARTED TO INJECT THE LEFT AND RIGHT OCCIPITALIS MUSCLE. I INJECTED AT THE FOLLOWING PLACES IN THE RIGHT AND LEFT MUSCLE. THE FIRST INJECTION WAS DONE AT THE MIDPOINT POSITION BETWEEN THE MASTOID PROCESS AND THE INION OF THE OCCIPITAL PROTUBERANCE. THE SECOND INJECTION WAS DONE APPROXIMATELY 1.5 CM SUPERIOR AND LATERAL OF THIS POINT. THE THIRD INJECTION WAS DONE APPROXIMATELY 1.5 CM SUPERIOR AND MEDIAL TO THIS FIRST INJECTION. THEN, I PROCEEDED TO INJECT THE RIGHT AND LEFT PARASPINAL MUSCLES. LANDMARK OF THE INJECTION WERE APPROXIMATELY: FIRST INJECTION 3 CM BELOW THE INION AND 1 CM LATERAL TO THE MIDLINE AND SECOND INJECTION AT EACH SIDE WAS DONE APPROXIMATELY 1.5 CM SUPERIOR AND LATERAL OF THE FIRST INJECTION. THE LAST GROUP OF INJECTIONS WAS DONE OVER THE RIGHT AND LEFT TRAPEZIUS MUSCLE OVER THE SHOULDERS AREA. THE FIRST INJECTION WAS DONE AT THE MIDPOINT BETWEEN THE INFLECTION POINT BETWEEN THE NECK AND SHOULDER AND THE ACROMION. THE SECOND AND THIRD INJECTIONS WERE DONE APPROXIMATELY 2.5 CM LATERAL AND MEDIAL FROM THIS FIRST INJECTION. SAME TARGETS WERE USED IN THE RIGHT AND LEFT SIDE. I INJECTED ALSO 2.5 UNITS OF BOTOX AT 5 POINTS IN THE SUPERIOR CRANIAL AREA WHERE THE PATIENT EXPRESSED HAVING A LOT OF PAIN. THIS HAS WORK FOR HIM IN THE PAST. IN TOTAL, I INJECTED 167.5 UNITS OF BOTOX. PROCEDURE WAS DONE WITHOUT EVIDENCE OF PARESTHESIA, PNEUMOTHORAX, OR ANY COMPLICATIONS. THE PATIENT TOLERATED THE PROCEDURE VERY WELL. THE PATIENT WAS SENT TO THE RECOVERY ROOM FOR OBSERVATIONS. INJECTIONS WERE DONE AFTER CLEANING WITH ALCOHOL, USING ASEPTIC TECHNIQUES POST PROCEDURE NOTE THE PROCEDURE DONE WAS DISCUSSED WITH THE PATIENT. THE PATIENT WILL BE SEEN IN A FOLLOW UP IN THE NEXT FEW WEEKS. INSTRUCTIONS WERE GIVEN, QUESTIONS WERE ANSWERED, AND THE PATIENT EXPRESSED UNDERSTANDING AND AGREES WITH THE PLAN. I, ALICIA DEL VALLE, DOCUMENTED THE ABOVE INFORMATION ACTING A SCRIBE FOR DR. LEONARDO. I HAVE REVIEWED THE ABOVE DOCUMENT, WRITTEN BY ALICIA CRISTOBAL AND I VERIFY THAT IT IS ACCURATE. PN WORKMANS' COMP OPINION IN YOUR OPINION, WAS THE INCIDENT THAT THE PATIENT DESCRIBED THE COMPETENT MEDICAL CAUSE OF THIS INJURY/ILLNESS? YES ARE THE PATIENT'S COMPLAINTS CONSISTENT WITH HIS/HER HISTORY OF THE INJURY/ILLNESS? YES IS THE PATIENT'S HISTORY OF THE INJURY/ILLNESS CONSISTENT WITH YOUR OBJECTIVE FINDING? YES WHAT IS THE PERCENTAGE OF TEMPORARY IMPAIRMENT? MARKED = 75% IS THE PATIENT WORKING? NO DOCTOR ON SITE: JAVON VALDEZ MD PROCEDURE CODES 03592 CHEMOD[facility]ERV [facility] MIGRAINE DISPOSITION & COMMUNICATION FOLLOW UP 3 WEEKS ELECTRONICALLY SIGNED BY JAVON LEONARDO MD, MD ON 04/16/2019 AT 12:55 PM EDT DISCLAIMER : THIS IS A VISIT SUMMARY EXTRACTED FROM THE [employer] CHART. IT IS NOT A COPY OF THE [employer] PROGRESS NOTE. CHRISTOPHERD
== END ==
LOC: M PAIN 11:30
PROVIDERS: ATTEND Anesthesiology
DX: G43.709 Chronic migraine without aura, not intractable, without status migrainosus (principal); E11.9 Type 2 diabetes mellitus without complications; I10 Essential (primary) hypertension; E07.9 Disorder of thyroid, unspecified; K21.9 Gastro-esophageal reflux disease without esophagitis; G89.29 Other chronic pain; Z79.84 Long term (current) use of oral hypoglycemic drugs; Z79.891 Long term (current) use of opiate analgesic; Z79.899 Other long term (current) drug therapy; Z88.1 Allergy status to other antibiotic agents; Z88.8 Allergy status to other drugs, medicaments and biological substances
CPT/HCPCS: 64615; J0585

== ENCOUNTER → 2019-07-04 | Outpatient (CLI) | payer OTHER ==
[~2019-07-04] MED LIST changes: -BOTULINUM INJ 100 UNITS (J0585) IM ONE; -diazePAM 5 MG TAB As Ordered ONE; -diphenhydrAMINE 25 MG CAP As Ordered ONE; -oxyCODONE 5MG TAB As Ordered ONE
--- NOTE | 2019-07-16 00:26 | ECWPNPC ---
PATIENT NAME: ALEX JI : 1965 GENDER: MALE VISIT DATE: 07/04/2019 DISCHARGE DATE: 07/04/19 1109 VISIT LOCKED DATE TIME: PHYSICIAN: BLANE EUGENE RESOURCE: BLANE EUGENE REASON FOR APPOINTMENT 1. W/C POST PROC 30 MIN HISTORY OF PRESENT ILLNESS HISTORY OF PRESENT ILLNESS: HERE FOR F/U OF CHRONIC NECK PAIN ASSOCIATED WITH WORK RELATED INJURY MARCH 1988.HAD BOTOX ON 04/08/19.HAS RESPNDED WELL TO BOTOX AND IT IS TIME FOR 3 MOS BOTOX INJECTIONS.TODAY PAIN IN HEAD HAS ESCALATED.RATING PAIN VAS 9/10. PAIN THE PATIENT DESCRIBES THE PAIN... FALL RISK SCREENING: SCREENING :NO FALLS REPORTED IN THE LAST YEAR CURRENT MEDICATIONS TAKING PINDOLOL 5 MG TABLET 1 TABLET ORALLY QID TAKING POTASSIUM CHLORIDE 10 MEQ (PRT) TABLET EXTENDED RELEASE 1 TABLET ORALLY TWICE DAILY TAKING METFORMIN HCL ER 750 MG TABLET EXTENDED RELEASE 24 HOUR ORALLY TWICE A DAY TAKING COLACE 100 MG CAPSULE 1 CAPSULE NEEDED ORALLY ONCE A DAY TAKING KETOROLAC TROMETHAMINE 10 MG TABLET 1 TABLET WITH FOOD OR MILK NEEDED ORALLY Q6H PRN FOR SEVERE PAIN MDD4, NOTES: SUNDAY TAKING AMITRIPTYLINE HCL 50 MG TABLET 3 ORALLY FOR PAIN ONCE A DAY TAKING TOPAMAX 100 MG TABLET 1 TABLET ORALLY FOR PAIN TWICE A DAY, NOTES: 04/08/19 39358 TAKING CYCLOBENZAPRINE HCL 10 MG TABLET 1 TABLET NEEDED ORALLY Q6-8H PRN FOR SEVERE MUSCLE SPASM PAIN #45 TAB. SHOULD LAST 30 DAYS, NOTES: NEEDS TAKING FENTANYL 50 MCG/HR PATCH 72 HOUR 1 PATCH TO SKIN TRANSDERMAL Q72 HR=MDD TAKING PERCOCET 7.5-325 MG TABLET 1 ORALLY Q6H PRN MDD4 UNKNOWN ATENOLOL 50 MG TABLET 1 TABLET ORALLY BID UNKNOWN LEVOTHYROXINE SODIUM 50 MCG TABLET 1 TABLET ORALLY ONCE A DAY UNKNOWN TRIAMTERENE-HCTZ 37.5-25 MG TABLET 1 TABLET IN THE MORNING ORALLY ONCE A DAY UNKNOWN AIMOVIG 70 MG/ML SOLUTION AUTO-INJECTOR 1 ML SUBCUTANEOUS MONTHLY MEDICATION LIST REVIEWED AND RECONCILED WITH THE PATIENT PAST MEDICAL HISTORY DM, HTN, CHRONIC PAIN , THYROID DISEASE, GERD, MIGRANES ALLERGIES AZITHROMYCIN: LIP SWELLING - ALLERGY SUMATRIPTAN: FACIAL SWELLING - ALLERGY PROPOXYPHENE: PRICKLY FEELING, RASH, SOB - ALLERGY SURGICAL HISTORY FUSION C3-C4 1994 3 SURGURIES TO LEFT KNEE 1993 FAMILY HISTORY FATHER: 51 YRS, DIAGNOSED WITH DIABETES MOTHER: 50 YRS, OTHER MALIGNANT NEOPLASM OF UNSPECIFIED SITE 3 BROTHER(S) , 2 SISTER(S) . 1 SON(S) - HEALTHY. ON BROTHER R\/T PANCREATIC CANCER, ONE SISTER WITH MS \NBROTHER - COMPLICATIONS FROM AGENT ORANGE\NBROTHER - BLOOD CLOT. SOCIAL HISTORY GENERAL: TOBACCO USE ARE YOU A:NONSMOKER HIV / HEP-C SCREENING HIV TEST OFFERED TO PATIENT:YES DATE OFFERED:01/17/2018 TEST ACCEPTED:NO HEP-C TEST OFFERED TO PATIENT:YES DATE OFFERED:01/17/2018 REASON:PATIENT DECLINED TEST ACCEPTED:NO REASON:PATIENT DECLINED BROCHURE PROVIDED TO PATIENTNO LANGUAGE LANGUAGES SPOKEN:AUSTRIAN DOMESTIC VIOLENCE DO YOU FEEL SAFE IN YOUR ENVIRONMENT?YES RECREATIONAL DRUG USE DRUG USE?NO LEARNING BARRIERS / SPECIAL NEEDS CHANGE FROM LAST VISIT?NO BARRIERS TO LEARNING?NO HEARING IMPAIRED?NO VISION IMPAIRED?YES COGNITIVELY IMPAIRED?NO :CORRECTIVE LENSES READINESS TO LEARN?YES LEARNING PREFERENCES?YES :BOOKLETS, HANDOUTS LEARNING CAPABILITIES PRESENT?YES EMOTIONAL BARRIERS?NO SPECIAL DEVICES?YES :CANE, WHEELCHAIR LUNG CANCER SCREENING SMOKING STATUS:NON SMOKER PAIN CLINIC PFS, CLERGY, PUBLIC HEALTH REFERRALS PFS REFERRAL NEEDED?NO CLERGY REFERRAL NEEDED?NO PUBLIC HEALTH REFERRAL NEEDED?NO WAS THE PROVIDER NOTIFIED OF ANY PERTINENT INFO?YES N/A HAS THE PATIENT BEEN EDUCATED REGARDING HIS/HER PLAN OF CARE?YES HAS THE PATIENT BEEN EDUCATED REGARDING PAIN, THE RISK FOR PAIN, THE IMPORTANCE OF EFFECTIVE PAIN MANAGEMENT, AND THE PAIN ASSESSMENT PROCESS?YES LATEX QUESTIONNAIRE LATEX ALLERGY : HAVE YOU EVER DEVELOPED ANY TYPE OF REACTION AFTER HANDLING LATEX PRODUCTS SUCH RUBBER GLOVES, CONDOMS, DIAPHRAGMS, BALLOONS, SOCKS, OR UNDERWEAR?NO LATEX ALLERGY : HAVE YOU EVER DEVELOPED ANY TYPE OF REACTION DURING OR AFTER DENTAL APPOINTMENT, VAGINAL/RECTAL EXAMINATION, SURGICAL PROCEDURE, OR ANY OTHER EXPOSURE?NO DATE ASKED : 01/27/2019 LATEX RISK : HAVE YOU EVER HAD ANY DIFFICULTY BREATHING OR HIVES AFTER EATING OR HANDLING ANY FRUITS, OR VEGETABLES; SUCH KIWI, BANANAS, STONE FRUITS, OR CHESTNUTSNO LATEX RISK : DO YOU HAVE A PREVIOUS PERSONAL HISTORY OF MORE THAN NINE SURGERIES, SPINA BIFIDA, OR REPEATED CATHERIZATIONS? NO LATEX RISK : ARE YOU FREQUENTLY EXPOSED TO LATEX PRODUCTS IN YOUR OCCUPATION?NO CAFFEINE CAFFEINE USE?NO ADVANCE DIRECTIVE ADVANCE DIRECTIVE DISCUSSED WITH PATIENT:YES HCP - SHE JI () ANABAPTISM [id number] RESTORATION ALCOHOL SCREENING DID YOU HAVE A DRINK CONTAINING ALCOHOL IN THE PAST YEAR?NO POINTS0 INTERPRETATIONNEGATIVE REVIEWED 04/15/18 1430 LAS REVIEWED WITH PATIENT 09/27/18 1512 JS. HOSPITALIZATION/MAJOR DIAGNOSTIC PROCEDURE SURGERIES HYPERTENSION HEAD INJURY 03/1986 REVIEW OF SYSTEMS REVIEWED BY: PROVIDER: BLANE ACKERMAN . CONSTITUTIONAL: ANY CHANGE IN YOUR MEDICAL CONDITION? NO . CHILLS NO . FEVER NO . INFECTION: DO YOU HAVE NEW INFECTIONS? NO . DO YOU HAVE HISTORY OF MRSA? NO . MUSCULOSKELETAL: ANY NEW PATTERNS OF PAIN OR NUMBNESS? NO . GASTROENTEROLOGY: ANY NEW CHANGE IN BOWEL CONTROL? NO . GENITOURINARY: ANY NEW CHANGE IN BLADDER CONTROL? NO . IS THERE A CHANCE YOU COULD BE ? NO . HEMATOLOGY/LYMPH: DO YOU TAKE ANY BLOOD THINNERS? (FOR EXAMPLE- COUMADIN, PLAVIX, AGGRENOX, PLATEL, PRADAXA, OR XARELTO) NO . WHEN WAS YOUR LAST DOSE? DATE: TIME: . NEUROLOGY: HAVE YOU FALLEN IN THE PAST 12 MONTHS? NO . ANY NEW EXTREMITY NUMBNESS OR WEAKNESS? NO . CARDIOLOGY: DO YOU HAVE A PACEMAKER OR DEFIBRILLATOR? NO . RESPIRATORY: HAVE YOU BEEN SICK IN THE PAST WEEK? NO . FEVER NO . FLU LIKE SYMPTOMS? NO . COUGH NO . INTEGUMENTARY: DO YOU HAVE ANY RASHES OR OPEN SORES? NO . ALLERGIC/IMMUNO: ARE YOU ALLERGIC TO IV DYE? NO . ANY NEW ALLERGIES? NO . PSYCHIATRIC: DO YOU HAVE THOUGHTS OF HURTING YOURSELF OR SOMEONE ELSE? NO . ARE YOU ABUSED, NEGLECTED, OR IN AN UNSAFE ENVIRONMENT? NO . ENDOCRINOLOGY: ARE YOU DIABETIC? NO . OTHER: DO YOU NEED ANY PRESCRIPTIONS? NO . IF YES, PLEASE LIST: ____ . ANY NEW PROBLEMS WITH YOUR MEDICATIONS? NO . WHEN DID YOU LAST EAT? ____ . WHEN DID YOU LAST DRINK? ____ . WHAT DID YOU LAST DRINK? ____ . NAME OF PERSON DRIVING YOU HOME? ____ . DO YOU HAVE ANY OTHER QUESTIONS OR CONCERNS NO . VITAL SIGNS WT 352 LBS, HT 75 IN, BMI 43.99 INDEX, BP 136/93 MM HG, HR 85 /MIN, RR 18 /MIN, TEMP 96.2 F, OXYGEN SAT % 96%, NA INITIALS AW. EXAMINATION GENERAL EXAMINATION: LUNGS:LUNG SOUNDS ARE CLEAR . HEART:HEART RATE REGULAR . MUSCULOSKELETAL:*, TRIGGER POINTS:, ELICITED WITH PALPATION OVER CERVICAL SPINOUS PROCESSES AND ACROSS THE TRAPEZIUS MUSCLES BILATERALLY. RESTRICTION OF ROM IS NOTED. MUSCLE SPASM IS NOTED ACROSS TRAPEZIUS BILAT.. NEUROLOGIC EXAM:CN'S II-XII GROSSLY INTACT.WALKS WITH WIDE BASED ANTALGIC GAIT WITH ASSIST OF CANE AND .VERY UNSTEADY POSITIVE ROMBERG. ASSESSMENTS CHRONIC MIGRAINE WITHOUT AURA WITHOUT STATUS MIGRAINOSUS, NOT INTRACTABLE - G43.709 (PRIMARY) TREATMENT CHRONIC MIGRAINE WITHOUT AURA WITHOUT STATUS MIGRAINOSUS, NOT INTRACTABLE CONTINUE COLACE CAPSULE, 100 MG, 1 CAPSULE NEEDED, ORALLY, ONCE A DAY CONTINUE KETOROLAC TROMETHAMINE TABLET, 10 MG, 1 TABLET WITH FOOD OR MILK NEEDED, ORALLY, Q6H PRN FOR SEVERE PAIN MDD4, NOTES: SUNDAY CONTINUE AMITRIPTYLINE HCL TABLET, 50 MG, 3, ORALLY FOR PAIN, ONCE A DAY CONTINUE TOPAMAX TABLET, 100 MG, 1 TABLET, ORALLY FOR PAIN, TWICE A DAY, NOTES: 04/08/19 75446 CONTINUE CYCLOBENZAPRINE HCL TABLET, 10 MG, 1 TABLET NEEDED, ORALLY, Q6-8H PRN FOR SEVERE MUSCLE SPASM PAIN #45 TAB. SHOULD LAST 30 DAYS, NOTES: NEEDS CONTINUE FENTANYL PATCH 72 HOUR, 50 MCG/HR, 1 PATCH TO SKIN, TRANSDERMAL, Q72 HR=MDD CONTINUE PERCOCET TABLET, 7.5-325 MG, 1, ORALLY, Q6H PRN MDD4 NOTES: FOLLOWING TREATMENT GUIDELINES FOR CHRONIC MIGRAINE HEADACHE IT IS OUR MEDICAL JUDGMENT TO REQUEST BOTOX INJECTIONS Q3 MOS, ISTOP REGISTRY REVIEWED AND DEMONSTRATES COMPLLIANCE. BRINGS IN MEDICATIONS WHICH IS APPROPRIATE FOR WHAT WAS DISPENSED. RECENT URINE TOXICOLOGY REVIEWED. NO UNAUTHORIZED MEDICATIONS. NO ILLICIT SUBSTANCES AND PRESCRIBED MEDICATIONS WERE PRESENT. URINE TOX TODAY, RISKS AND BENEFITS OF NARCOTIC/OPIOD MEDICATIONS WERE REVIEWED WITH PATIENT - THIS INCLUDES BUT IS NOT LIMITED TO RISK OF DEPENDANCE/DEVELOPMENT OF ADDICTION, MOOD DISTURBANCE AND DEPRESSION, OSTEOPOROSIS, HORMONAL AND LABIDAL CHANGES, RESPIRATORY DEPRESSION AND . PATIENT IS ADVISED NOT TO DRIVE OR DRINK ALCOHOL WHILE ON THESE MEDICATIONS. CLINICAL NOTES: W/C BOTOX. PROCEDURES PN WORKMANS' COMP OPINION IN YOUR OPINION, WAS THE INCIDENT THAT THE PATIENT DESCRIBED THE COMPETENT MEDICAL CAUSE OF THIS INJURY/ILLNESS? YES ARE THE PATIENT'S COMPLAINTS CONSISTENT WITH HIS/HER HISTORY OF THE INJURY/ILLNESS? YES IS THE PATIENT'S HISTORY OF THE INJURY/ILLNESS CONSISTENT WITH YOUR OBJECTIVE FINDING? YES WHAT IS THE PERCENTAGE OF TEMPORARY IMPAIRMENT? MARKED = 75% IS THE PATIENT WORKING? NO DOCTOR ON SITE: JAVON VALDEZ MD PROCEDURE CODES FA211 ESTABILISHED PATIENT [facility] CHARGE DISPOSITION & COMMUNICATION FOLLOW UP POST (REASON: W/C BOTOX ) ELECTRONICALLY SIGNED BY MEKA BAPTISTE ON 07/15/2019 AT 01:56 PM EDT DISCLAIMER : THIS IS A VISIT SUMMARY EXTRACTED FROM THE [employer] CHART. IT IS NOT A COPY OF THE [employer] PROGRESS NOTE. NAHEED
== END ==
LOC: M PAIN 10:00
PROVIDERS: ATTEND Nurse Practitioner Family
DX: G43.709 Chronic migraine without aura, not intractable, without status migrainosus (principal); G89.29 Other chronic pain; E11.9 Type 2 diabetes mellitus without complications; I10 Essential (primary) hypertension; Z88.1 Allergy status to other antibiotic agents; Z88.5 Allergy status to narcotic agent; Z88.8 Allergy status to other drugs, medicaments and biological substances; E66.01 Morbid (severe) obesity due to excess calories; Z68.41 Body mass index [BMI] 40.0-44.9, adult; Z79.84 Long term (current) use of oral hypoglycemic drugs; Z79.891 Long term (current) use of opiate analgesic; Z79.899 Other long term (current) drug therapy

== ENCOUNTER → 2019-08-01 | Outpatient (CLI) | payer OTHER | LOC: M RAD 14:36 | PROVIDERS: ATTEND Physician Assistant | DX: M17.11 Unilateral primary osteoarthritis, right knee (principal) ==

== ENCOUNTER → 2019-08-08 | Outpatient (CLI) | payer OTHER ==
--- NOTE | 2019-08-28 01:43 | ECWPNPC ---
PATIENT NAME: ALEX JI : 1965 GENDER: MALE VISIT DATE: 08/08/2019 DISCHARGE DATE: 08/08/19 0000 VISIT LOCKED DATE TIME: PHYSICIAN: JAVON LEONARDO MD RESOURCE: JAVON LEONARDO MD REASON FOR APPOINTMENT 1. BACK PAIN HISTORY OF PRESENT ILLNESS HISTORY OF PRESENT ILLNESS: PAIN THE PATIENT DESCRIBES THE PAIN... 53 YEAR OLD MALE PATIENT WITH A HISTORY OF CHRONIC BACK PAIN. THE PATIENT DESCRIBES THE PAIN ACHING, TENDER, SORE, AND CONTINUOUS WITH A PAIN SCORE OF 5-10/10 DEPENDING ON PHYSICAL ACTIVITY. 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 THE PATIENT REPORTS BLACKING OUT DOZEN OF TIMES AFTER THE IMPACT AND AN AMBULANCE BROUGHT HIM TO [facility], WHERE THEY PERFORMED X-RAYS AND A SERIES OF TESTS. THE PATIENT SAYS A NECK FRACTURE WAS MISSED IN THE READING OF THE X-RAY AND HE WAS EVENTUALLY RELEASED. THE PATIENT STATES HE CONTINUED TO EXPERIENCE MIGRAINES, HEADACHES, UNEXPECTED BLACKOUTS EVERY COUPLE OF DAYS, LEG BUCKLING, MOTOR AND BALANCE ISSUES, AND PAIN IN HIS SPINE AND DOWN HIS LEGS. THE PATIENT SAYS HE CONTINUED TO WORK WITH DIFFICULTY UNTIL 1994, BUT HE STOPPED WORKING AFTER HE WAS SEEN BY DR. BARBER, HIS ORTHOPEDIC, WHO REFERRED HIM TO DR. DEMARCO WHO PERFORMED AN EMERGENCY C3-C4 FUSION THAT SAME YEAR. THE PATIENT SAYS HE WAS INFORMED THERE WERE BONE SPURS PUSHING ON HIS SPINAL COLUMN, BUT SINCE THE SURGERY HIS PAIN CONTINUES TO PERSIST. THE PATIENT SAYS PHYSICAL THERAPY HELPS WITH SOME OF HIS PAIN DEPENDING ON THE TYPE OF THERAPY WORK. THE PATIENT SAYS MEDICATION MANAGEMENT AND INJECTION THERAPY, INCLUDING BOTOX, TRIGGER POINTS, AND SPINE INJECTIONS, HELPS HIM WELL. THE PATIENT MENTIONS HE HAS ALSO EXPERIENCED MULTIPLE INJURIES TO HIS KNEES DUE TO FALLING, RIGHT SHOULDER PAIN, AND HAS DEVELOPED MEMORY ISSUES. PATIENT DENIES UNEXPLAINABLE WEIGHT LOSS, FEVER, CHILLS, NEW CHANGES ON HIS URINARY OR BOWEL CONTROL. FALL RISK SCREENING: SCREENING :NO FALLS REPORTED IN THE LAST YEAR CURRENT MEDICATIONS TAKING PINDOLOL 5 MG TABLET 1 TABLET ORALLY QID TAKING POTASSIUM CHLORIDE 10 MEQ (PRT) TABLET EXTENDED RELEASE 1 TABLET ORALLY TWICE DAILY TAKING METFORMIN HCL ER 750 MG TABLET EXTENDED RELEASE 24 HOUR ORALLY TWICE A DAY TAKING COLACE 100 MG CAPSULE 1 CAPSULE NEEDED ORALLY ONCE A DAY TAKING KETOROLAC TROMETHAMINE 10 MG TABLET 1 TABLET WITH FOOD OR MILK NEEDED ORALLY Q6H PRN FOR SEVERE PAIN MDD4 TAKING AMITRIPTYLINE HCL 50 MG TABLET 3 ORALLY FOR PAIN ONCE A DAY TAKING CYCLOBENZAPRINE HCL 10 MG TABLET 1 TABLET NEEDED ORALLY Q6-8H PRN FOR SEVERE MUSCLE SPASM PAIN #45 TAB. SHOULD LAST 30 DAYS, NOTES: NEEDS TAKING TOPAMAX 100 MG TABLET 1 TABLET ORALLY FOR PAIN TWICE A DAY TAKING FENTANYL 50 MCG/HR PATCH 72 HOUR 1 PATCH TO SKIN TRANSDERMAL Q72 HR=MDD TAKING PERCOCET 7.5-325 MG TABLET 1 ORALLY Q6H PRN MDD4 NOT-TAKING ATENOLOL 50 MG TABLET 1 TABLET ORALLY BID NOT-TAKING LEVOTHYROXINE SODIUM 50 MCG TABLET 1 TABLET ORALLY ONCE A DAY NOT-TAKING TRIAMTERENE-HCTZ 37.5-25 MG TABLET 1 TABLET IN THE MORNING ORALLY ONCE A DAY NOT-TAKING AIMOVIG 70 MG/ML SOLUTION AUTO-INJECTOR 1 ML SUBCUTANEOUS MONTHLY MEDICATION LIST REVIEWED AND RECONCILED WITH THE PATIENT PAST MEDICAL HISTORY DM, HTN, CHRONIC PAIN , THYROID DISEASE, GERD, MIGRANES ALLERGIES AZITHROMYCIN: LIP SWELLING - ALLERGY SUMATRIPTAN: FACIAL SWELLING - ALLERGY PROPOXYPHENE: PRICKLY FEELING, RASH, SOB - ALLERGY SURGICAL HISTORY FUSION C3-C4 1994 3 SURGURIES TO LEFT KNEE 1993 FAMILY HISTORY FATHER: 51 YRS, DIAGNOSED WITH DIABETES MOTHER: 50 YRS, OTHER MALIGNANT NEOPLASM OF UNSPECIFIED SITE 3 BROTHER(S) , 2 SISTER(S) . 1 SON(S) - HEALTHY. ON BROTHER R\/T PANCREATIC CANCER, ONE SISTER WITH MS \NBROTHER - COMPLICATIONS FROM AGENT ORANGE\NBROTHER - BLOOD CLOT. SOCIAL HISTORY GENERAL: TOBACCO USE ARE YOU A:NONSMOKER HIV / HEP-C SCREENING HIV TEST OFFERED TO PATIENT:YES DATE OFFERED:01/17/2018 TEST ACCEPTED:NO HEP-C TEST OFFERED TO PATIENT:YES DATE OFFERED:01/17/2018 REASON:PATIENT DECLINED TEST ACCEPTED:NO REASON:PATIENT DECLINED BROCHURE PROVIDED TO PATIENTNO LANGUAGE LANGUAGES SPOKEN:HUNGARIAN DOMESTIC VIOLENCE DO YOU FEEL SAFE IN YOUR ENVIRONMENT?YES RECREATIONAL DRUG USE DRUG USE?NO LEARNING BARRIERS / SPECIAL NEEDS CHANGE FROM LAST VISIT?NO BARRIERS TO LEARNING?NO HEARING IMPAIRED?NO VISION IMPAIRED?YES COGNITIVELY IMPAIRED?NO :CORRECTIVE LENSES READINESS TO LEARN?YES LEARNING PREFERENCES?YES :BOOKLETS, HANDOUTS LEARNING CAPABILITIES PRESENT?YES EMOTIONAL BARRIERS?NO SPECIAL DEVICES?YES :CANE, WHEELCHAIR LUNG CANCER SCREENING SMOKING STATUS:NON SMOKER PAIN CLINIC PFS, CLERGY, PUBLIC HEALTH REFERRALS PFS REFERRAL NEEDED?NO CLERGY REFERRAL NEEDED?NO PUBLIC HEALTH REFERRAL NEEDED?NO WAS THE PROVIDER NOTIFIED OF ANY PERTINENT INFO?YES N/A HAS THE PATIENT BEEN EDUCATED REGARDING HIS/HER PLAN OF CARE?YES HAS THE PATIENT BEEN EDUCATED REGARDING PAIN, THE RISK FOR PAIN, THE IMPORTANCE OF EFFECTIVE PAIN MANAGEMENT, AND THE PAIN ASSESSMENT PROCESS?YES LATEX QUESTIONNAIRE LATEX ALLERGY : HAVE YOU EVER DEVELOPED ANY TYPE OF REACTION AFTER HANDLING LATEX PRODUCTS SUCH RUBBER GLOVES, CONDOMS, DIAPHRAGMS, BALLOONS, SOCKS, OR UNDERWEAR?NO LATEX ALLERGY : HAVE YOU EVER DEVELOPED ANY TYPE OF REACTION DURING OR AFTER DENTAL APPOINTMENT, VAGINAL/RECTAL EXAMINATION, SURGICAL PROCEDURE, OR ANY OTHER EXPOSURE?NO DATE ASKED : 01/27/2019 LATEX RISK : HAVE YOU EVER HAD ANY DIFFICULTY BREATHING OR HIVES AFTER EATING OR HANDLING ANY FRUITS, OR VEGETABLES; SUCH KIWI, BANANAS, STONE FRUITS, OR CHESTNUTSNO LATEX RISK : DO YOU HAVE A PREVIOUS PERSONAL HISTORY OF MORE THAN NINE SURGERIES, SPINA BIFIDA, OR REPEATED CATHERIZATIONS? NO LATEX RISK : ARE YOU FREQUENTLY EXPOSED TO LATEX PRODUCTS IN YOUR OCCUPATION?NO CAFFEINE CAFFEINE USE?NO ADVANCE DIRECTIVE ADVANCE DIRECTIVE DISCUSSED WITH PATIENT:YES HCP - SHE JI () NONDENOMINATIONAL [id number] RESTORATION ALCOHOL SCREENING DID YOU HAVE A DRINK CONTAINING ALCOHOL IN THE PAST YEAR?NO POINTS0 INTERPRETATIONNEGATIVE REVIEWED 04/15/18 1430 LAS REVIEWED WITH PATIENT 09/27/18 1512 JS REVIEWED WITH PATIENT 08/08/19 1638 BV. HOSPITALIZATION/MAJOR DIAGNOSTIC PROCEDURE SURGERIES HYPERTENSION HEAD INJURY 03/1986 REVIEW OF SYSTEMS REVIEWED BY: PROVIDER: JAVON LEONARDO MD . CONSTITUTIONAL: ANY CHANGE IN YOUR MEDICAL CONDITION? NO . CHILLS NO . FEVER NO . INFECTION: DO YOU HAVE NEW INFECTIONS? NO . DO YOU HAVE HISTORY OF MRSA? NO . MUSCULOSKELETAL: ANY NEW PATTERNS OF PAIN OR NUMBNESS? NO . GASTROENTEROLOGY: ANY NEW CHANGE IN BOWEL CONTROL? NO . GENITOURINARY: ANY NEW CHANGE IN BLADDER CONTROL? NO . IS THERE A CHANCE YOU COULD BE ? NO . HEMATOLOGY/LYMPH: DO YOU TAKE ANY BLOOD THINNERS? (FOR EXAMPLE- COUMADIN, PLAVIX, AGGRENOX, PLATEL, PRADAXA, OR XARELTO) NO . WHEN WAS YOUR LAST DOSE? DATE: TIME: . NEUROLOGY: HAVE YOU FALLEN IN THE PAST 12 MONTHS? YES, PT REPORTS A COUPLE FALLS SINCE LAST VISIT. STATES DUE TO LEG BUCKLING. DENIES ANY INJURIES OR ED VISIT WITH ANY FALL. . ANY NEW EXTREMITY NUMBNESS OR WEAKNESS? NO . CARDIOLOGY: DO YOU HAVE A PACEMAKER OR DEFIBRILLATOR? NO . RESPIRATORY: HAVE YOU BEEN SICK IN THE PAST WEEK? NO . FEVER NO . FLU LIKE SYMPTOMS? NO . COUGH NO . INTEGUMENTARY: DO YOU HAVE ANY RASHES OR OPEN SORES? NO . ALLERGIC/IMMUNO: ARE YOU ALLERGIC TO IV DYE? NO . ANY NEW ALLERGIES? NO . PSYCHIATRIC: DO YOU HAVE THOUGHTS OF HURTING YOURSELF OR SOMEONE ELSE? NO . ARE YOU ABUSED, NEGLECTED, OR IN AN UNSAFE ENVIRONMENT? NO . ENDOCRINOLOGY: ARE YOU DIABETIC? YES, ON MEDICATION . OTHER: DO YOU NEED ANY PRESCRIPTIONS? NO . IF YES, PLEASE LIST: ____ . ANY NEW PROBLEMS WITH YOUR MEDICATIONS? NO . WHEN DID YOU LAST EAT? ____ . WHEN DID YOU LAST DRINK? ____ . WHAT DID YOU LAST DRINK? ____ . NAME OF PERSON DRIVING YOU HOME? ____ . DO YOU HAVE ANY OTHER QUESTIONS OR CONCERNS NO . VITAL SIGNS WT 353.8 LBS, HT 75 IN, BMI 44.22 INDEX, BP 165/97 MM HG, HR 80 /MIN, RR 18 /MIN, TEMP 97.6 F, OXYGEN SAT % 95%, NA INITIALS 1630, REVIEWED BY: BV. EXAMINATION GENERAL EXAMINATION: PATIENT IS ALERT O X 3 AND COOPERATIVE. ANTALGIC WALK. PATIENT IS USING A CANE IN HIS RIGHT HAND AND HAS A KNEE BRACE ON HIS LEFT LEG THAT CAUSES LIMPING FROM THE LEFT LEG. PATIENT LET GO OF HIS CANE TO STAND WITHOUT IT. THE PATIENT EXHIBITS BALANCE ISSUES. LEFT ARM IS WEAKER AT EXTENSION AND FLEXION. RIGHT HAND INCIDENT RESPONSE CONSULTANT IS REDUCED COMPARED WITH THE LEFT SIDE. TENDERNESS OVER THE PARASPINAL MUSCLE GROUP OF THE CERVICAL AREA. PRESENCE OF BANDS OF TISSUE AND TRIGGER POINTS WITH RESTRICTION OF MOVEMENT OF THE HEAD, NECK, SHOULDERS, AND THORAX. PATIENT MOVED HIS HEAD BACK, WHICH CAUSED A LOSS OF BALANCE AND HE BEGAN TO FALL BACKWARDS. I AND HIS HAD TO CATCH HIM AND RESTABILIZE HIM. TENDERNESS OVER THE PARASPINAL MUSCLE GROUP OF THE LOW BACK, AND TOUCHING THIS AREA CAUSES A LOSS OF BALANCE. PATIENT MOVES SLOWLY TO SIT DOWN. BOTH LEGS ARE WEAK, BUT LEFT LEG IS WEAKER AT EXTENSION AND FLEXION. STRAIGHT LEG RAISE OF BOTH LEGS AT 30 DEGREES SHOWS SIGNS OF RADICULAR SYMPTOMS. CT SCAN OF THE LUMBAR SPINE DONE ON 02/15/2017 SHOWS BULGING DISC AND FACET ARTHROPATHY CHANGES. OPIOID RISK TOOL-1-LOW RISK. 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 JI' PAIN MANAGEMENT CASE. I REVIEWED WITH MR. JI OVER HIS MEDICATIONS ALONG WITH THE OBSERVATIONS DONE BY DR. ORTIZ IN THE CHART REVIEW OF FEBRUARY [id number]. PATIENT IS USING FENTANYL 50 MCG PATCH. MR. JI EXPLAINED THAT WHEN HE REDUCED FENTANYL IN THE PAST, HE WENT THROUGH SEVERE PAIN AND DISCOMFORT. I WOULD SUGGEST TO CONSIDER PERFORMING OTHER MODALITIES AT THE SAME TIME THAT A REDUCTION OF HIS DAILY USE OF NARCOTICS IS ATTEMPTED. POSSIBLE MODALITIES TO CONSIDER INCLUDES ACUPUNCTURE, MEDICAL MARIJUANA, OR PAIN PROCEDURES. MR. JI EXPRESSED HIS DISPOSITION ON TRYING AGAIN TO REDUCE HIS MEDICATIONS. THE PATIENT EXPRESSED THAT MASSAGE THERAPY HAS HELPED HIM IN THE PAST BY INCREASING HIS FUNCTIONALITY AND REDUCING HIS PAIN. THE PATIENT IS USING TOPAMAX PROPHYLAXIS FOR MIGRAINES AND AMITRIPTYLINE TO HELP WITH SLEEP. IN TERMS OF THE CYCLOBENZAPRINE, THE PATIENT IS USING THIS MEDICATION A MUSCLE RELAXANT ONLY IN THE ACUTE SETTING, WHICH IS WITHIN WORKERS COMP GUIDELINES. KETOROLAC IS ALSO USED ONLY IN ACUTE SITUATIONS AND A PRESCRIPTION OF THIS MEDICATION CAN LAST HIM FOR MANY MONTHS. THE PATIENT IS NOT USING SOMA OR LYRICA. THE PATIENT HAS BEEN RECEIVING BOTOX INJECTIONS THAT HAS HELPED HIM CONTROL HIS MIGRAINE HEADACHES. BEFORE STARTING BOTOX, THE PATIENT WAS HAVING 30 HEADACHES PER MONTH, BUT AFTER STARTING BOTOX HIS HEADACHES WERE REDUCED TO LESS THAN 10 PER MONTH. LAST BOTOX WAS DONE ON 04/08/2019. WE ARE WAITING FOR THE APPROVAL OF BOTOX FROM WORKERS COMP TO PERFORM ANOTHER ONE TO HELP WITH HIS PAIN, WHICH HAS BEEN SUCCESSFUL IN THE PAST AT HELPING TO REDUCE THE PATIENT'S PAIN AND INCREASING HIS FUNCTIONALITY. FOR EXAMPLE, WITHOUT BOTOX THE PATIENT TENDS TO STAY IN A DARK ROOM AT HOME DUE TO INCAPACITATION FROM HIS PAIN. HOWEVER, WITH THE USE OF BOTOX, THE PATIENT CAN BE WITH HIS FAMILY IN THE LIVING ROOM AND HAS AN IMPROVED QUALITY OF LIFE. THE PATIENT DOES NOT HAVE OTHER ALTERNATIVES TO INCREASE THE USE OF HIS MEDICATIONS. DUE TO THE TRIGGER POINTS, BANDS OF TISSUE, AND RESTRICTION OF MOVEMENT, I WOULD LIKE TO MOVE FORWARD WITH NECK, SHOULDER, AND THORAX TRIGGER POINT INJECTIONS AT THIS TIME. WE DISCUSSED THE BENEFITS, RISKS, AND ALTERNATIVES OF THE INJECTION AND THE PATIENT WOULD LIKE TO PROCEED. I AM LOOKING FOR LONG LASTING PAIN RELIEF FROM THIS INJECTION FOR THE PATIENT. I WAS WITH THE PATIENT FOR MORE THAN 30 MINUTES AND MORE THAN HALF OF THAT TIME WAS SPENT DISCUSSING THE PATIENT'S CARE, CONDITION, OPTIONS, AND ADDRESSING ANY CONCERNS OR QUESTIONS. INSTRUCTIONS WERE GIVEN, QUESTIONS WERE ANSWERED, PATIENT REPORTS UNDERSTANDING AND AGREES WITH THE PLAN. I, ROMAN DANIELLE, DOCUMENTED THE ABOVE INFORMATION ACTING A SCRIBE FOR DR. LEONARDO. I HAVE REVIEWED THE ABOVE DOCUMENT, WRITTEN BY ROMAN DANIELLE SCRIBAlanna AND I VERIFY THAT IT IS ACCURATE.. OTHERS START NALOXONE HCL SOLUTION, 0.4 MG/ML, DIRECTED, INJECTION START NARCAN LIQUID, 4 MG/0.1ML, DIRECTED, NASALLY, FOR OPIOID OVERDOSE, 1 DAYS, 1, REFILLS 0 PROCEDURES PN WORKMANS' COMP OPINION IN YOUR OPINION, WAS THE INCIDENT THAT THE PATIENT DESCRIBED THE COMPETENT MEDICAL CAUSE OF THIS INJURY/ILLNESS? YES ARE THE PATIENT'S COMPLAINTS CONSISTENT WITH HIS/HER HISTORY OF THE INJURY/ILLNESS? YES IS THE PATIENT'S HISTORY OF THE INJURY/ILLNESS CONSISTENT WITH YOUR OBJECTIVE FINDING? YES WHAT IS THE PERCENTAGE OF TEMPORARY IMPAIRMENT? MARKED = 75% IS THE PATIENT WORKING? NO DOCTOR ON SITE: JAVON VALDEZ MD PROCEDURE CODES FA211 ESTABILISHED PATIENT [facility] FACILITY CHARGE G8427 CURRENT MEDS W/DOSAGES DOCUMENTED G8730 PAIN ASSESS POS TOOL F/U PLAN DOC DISPOSITION & COMMUNICATION FOLLOW UP WITH DIRECTOR PRODUCT SAFETY IN 6 WEEKS ELECTRONICALLY SIGNED BY JAVON LEONARDO MD, MD ON 08/27/2019 AT 04:18 PM EST DISCLAIMER : THIS IS A VISIT SUMMARY EXTRACTED FROM THE [employer] CHART. IT IS NOT A COPY OF THE [employer] PROGRESS NOTE. CHRISTOPHERD
== END ==
LOC: M PAIN 16:15
PROVIDERS: ATTEND Anesthesiology
DX: M79.18 Myalgia, other site (principal); M96.1 Postlaminectomy syndrome, not elsewhere classified; M47.816 Spondylosis without myelopathy or radiculopathy, lumbar region; M51.16 Intervertebral disc disorders with radiculopathy, lumbar region; S14.109A Unspecified injury at unspecified level of cervical spinal cord, initial encounter; Z87.81 Personal history of (healed) traumatic fracture; S06.9X9A Unspecified intracranial injury with loss of consciousness of unspecified duration, initial encounter; E11.9 Type 2 diabetes mellitus without complications; I10 Essential (primary) hypertension; G43.909 Migraine, unspecified, not intractable, without status migrainosus; Z88.1 Allergy status to other antibiotic agents; Z88.5 Allergy status to narcotic agent; Z88.8 Allergy status to other drugs, medicaments and biological substances; E66.01 Morbid (severe) obesity due to excess calories; Z68.41 Body mass index [BMI] 40.0-44.9, adult; Z79.84 Long term (current) use of oral hypoglycemic drugs; Z79.891 Long term (current) use of opiate analgesic; Z79.899 Other long term (current) drug therapy

== ENCOUNTER → 2019-09-04 | Outpatient (CLI) | payer OTHER ==
--- NOTE | 2019-09-11 00:49 | ECWPNPC ---
PATIENT NAME: ALEX JI : 1965 GENDER: MALE VISIT DATE: 09/04/2019 DISCHARGE DATE: 09/04/19 173 VISIT LOCKED DATE TIME: PHYSICIAN: JAVON LEONARDO MD RESOURCE: JAVON LEONARDO MD REASON FOR APPOINTMENT 1. W/C DISCUSS BOTOX DENIAL HISTORY OF PRESENT ILLNESS HISTORY OF PRESENT ILLNESS: PAIN THE PATIENT DESCRIBES THE PAIN... 53 YEAR OLD MALE PATIENT WITH A HISTORY OF CHRONIC NECK, BACK, AND SHOULDER PAIN. THE PATIENT DESCRIBES THE PAIN ACHING, SORE, TENDER, SHOOTING, AND CONTINUOUS WITH A PAIN SCORE OF 4-10/10 DEPENDING ON PHYSICAL ACTIVITY. 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 THE PATIENT STATES HIS PAIN IS AFFECTING HIS ABILITY TO PERFORM HIS DAILY ACTIVITIES SUCH WALKING, HELPING HIS FAMILY AT HOME, OR ENJOYING DAILY LIVING. PATIENT DENIES UNEXPLAINABLE WEIGHT LOSS, FEVER, CHILLS, NEW CHANGES ON HIS URINARY OR BOWEL CONTROL. FALL RISK SCREENING: SCREENING :NO FALLS REPORTED IN THE LAST YEAR CURRENT MEDICATIONS TAKING NARCAN 4 MG/0.1ML LIQUID DIRECTED NASALLY FOR OPIOID OVERDOSE TAKING PINDOLOL 5 MG TABLET 1 TABLET ORALLY QID TAKING POTASSIUM CHLORIDE 10 MEQ (PRT) TABLET EXTENDED RELEASE 1 TABLET ORALLY TWICE DAILY TAKING METFORMIN HCL ER 750 MG TABLET EXTENDED RELEASE 24 HOUR ORALLY TWICE A DAY TAKING COLACE 100 MG CAPSULE 1 CAPSULE NEEDED ORALLY ONCE A DAY TAKING AMITRIPTYLINE HCL 50 MG TABLET 3 ORALLY FOR PAIN ONCE A DAY TAKING CYCLOBENZAPRINE HCL 10 MG TABLET 1 TABLET NEEDED ORALLY Q6-8H PRN FOR SEVERE MUSCLE SPASM PAIN #45 TAB. SHOULD LAST 30 DAYS, NOTES: NEEDS TAKING TOPAMAX 100 MG TABLET 1 TABLET ORALLY FOR PAIN TWICE A DAY TAKING KETOROLAC TROMETHAMINE 10 MG TABLET 1 TABLET WITH FOOD OR MILK NEEDED ORALLY Q6H PRN FOR SEVERE PAIN MDD4 TAKING FENTANYL 50 MCG/HR PATCH 72 HOUR 1 PATCH TO SKIN TRANSDERMAL Q72 HR=MDD TAKING PERCOCET 7.5-325 MG TABLET 1 ORALLY Q6H PRN MDD4 TAKING ATENOLOL 50 MG TABLET 1 TABLET ORALLY BID TAKING LEVOTHYROXINE SODIUM 50 MCG TABLET 1 TABLET ORALLY ONCE A DAY TAKING TRIAMTERENE-HCTZ 37.5-25 MG TABLET 1 TABLET IN THE MORNING ORALLY ONCE A DAY DISCONTINUED NALOXONE HCL 0.4 MG/ML SOLUTION DIRECTED INJECTION DISCONTINUED AIMOVIG 70 MG/ML SOLUTION AUTO-INJECTOR 1 ML SUBCUTANEOUS MONTHLY MEDICATION LIST REVIEWED AND RECONCILED WITH THE PATIENT PAST MEDICAL HISTORY DM, HTN, CHRONIC PAIN , THYROID DISEASE, GERD, MIGRANES LEFT KNEE PAIN RIGHT SHOULDER LABRIUM TEAR ALLERGIES AZITHROMYCIN: LIP SWELLING - ALLERGY SUMATRIPTAN: FACIAL SWELLING - ALLERGY PROPOXYPHENE: PRICKLY FEELING, RASH, SOB - ALLERGY SURGICAL HISTORY FUSION C3-C4 1994 3 SURGURIES TO LEFT KNEE 1993 FAMILY HISTORY FATHER: 51 YRS, DIAGNOSED WITH DIABETES MOTHER: 50 YRS, OTHER MALIGNANT NEOPLASM OF UNSPECIFIED SITE 3 BROTHER(S) , 2 SISTER(S) . 1 SON(S) - HEALTHY. ON BROTHER R\/T PANCREATIC CANCER, ONE SISTER WITH MS \NBROTHER - COMPLICATIONS FROM AGENT ORANGE\NBROTHER - BLOOD CLOT. SOCIAL HISTORY GENERAL: TOBACCO USE ARE YOU A:NONSMOKER HIV / HEP-C SCREENING HIV TEST OFFERED TO PATIENT:YES DATE OFFERED:01/17/2018 TEST ACCEPTED:NO HEP-C TEST OFFERED TO PATIENT:YES DATE OFFERED:01/17/2018 REASON:PATIENT DECLINED TEST ACCEPTED:NO REASON:PATIENT DECLINED BROCHURE PROVIDED TO PATIENTNO LANGUAGE LANGUAGES SPOKEN:BELARUSIAN DOMESTIC VIOLENCE DO YOU FEEL SAFE IN YOUR ENVIRONMENT?YES RECREATIONAL DRUG USE DRUG USE?NO LEARNING BARRIERS / SPECIAL NEEDS CHANGE FROM LAST VISIT?NO BARRIERS TO LEARNING?NO HEARING IMPAIRED?NO VISION IMPAIRED?YES :CORRECTIVE LENSES COGNITIVELY IMPAIRED?NO READINESS TO LEARN?YES LEARNING PREFERENCES?YES :BOOKLETS, HANDOUTS LEARNING CAPABILITIES PRESENT?YES EMOTIONAL BARRIERS?NO SPECIAL DEVICES?YES :CANE, WHEELCHAIR LUNG CANCER SCREENING SMOKING STATUS:NON SMOKER PAIN CLINIC PFS, CLERGY, PUBLIC HEALTH REFERRALS PFS REFERRAL NEEDED?NO CLERGY REFERRAL NEEDED?NO PUBLIC HEALTH REFERRAL NEEDED?NO WAS THE PROVIDER NOTIFIED OF ANY PERTINENT INFO?YES N/A HAS THE PATIENT BEEN EDUCATED REGARDING HIS/HER PLAN OF CARE?YES HAS THE PATIENT BEEN EDUCATED REGARDING PAIN, THE RISK FOR PAIN, THE IMPORTANCE OF EFFECTIVE PAIN MANAGEMENT, AND THE PAIN ASSESSMENT PROCESS?YES LATEX QUESTIONNAIRE LATEX ALLERGY : HAVE YOU EVER DEVELOPED ANY TYPE OF REACTION AFTER HANDLING LATEX PRODUCTS SUCH RUBBER GLOVES, CONDOMS, DIAPHRAGMS, BALLOONS, SOCKS, OR UNDERWEAR?NO LATEX ALLERGY : HAVE YOU EVER DEVELOPED ANY TYPE OF REACTION DURING OR AFTER DENTAL APPOINTMENT, VAGINAL/RECTAL EXAMINATION, SURGICAL PROCEDURE, OR ANY OTHER EXPOSURE?NO LATEX RISK : HAVE YOU EVER HAD ANY DIFFICULTY BREATHING OR HIVES AFTER EATING OR HANDLING ANY FRUITS, OR VEGETABLES; SUCH KIWI, BANANAS, STONE FRUITS, OR CHESTNUTSNO LATEX RISK : DO YOU HAVE A PREVIOUS PERSONAL HISTORY OF MORE THAN NINE SURGERIES, SPINA BIFIDA, OR REPEATED CATHERIZATIONS? NO LATEX RISK : ARE YOU FREQUENTLY EXPOSED TO LATEX PRODUCTS IN YOUR OCCUPATION?NO DATE ASKED : 09/04/2019 CAFFEINE CAFFEINE USE?NO ADVANCE DIRECTIVE ADVANCE DIRECTIVE DISCUSSED WITH PATIENT:YES HCP - SHE JI () RELIGIOUS [id number] CAODAISM ALCOHOL SCREENING DID YOU HAVE A DRINK CONTAINING ALCOHOL IN THE PAST YEAR?NO POINTS0 INTERPRETATIONNEGATIVE REVIEWED 04/15/18 1430 LAS REVIEWED WITH PATIENT 09/27/18 1512 JS REVIEWED WITH PATIENT 08/08/19 1638 BV. HOSPITALIZATION/MAJOR DIAGNOSTIC PROCEDURE SURGERIES HYPERTENSION HEAD INJURY 03/1986 REVIEW OF SYSTEMS REVIEWED BY: PROVIDER: JAVON LEONARDO MD . CONSTITUTIONAL: ANY CHANGE IN YOUR MEDICAL CONDITION? NO . CHILLS NO . FEVER NO . INFECTION: DO YOU HAVE NEW INFECTIONS? NO . DO YOU HAVE HISTORY OF MRSA? NO . MUSCULOSKELETAL: ANY NEW PATTERNS OF PAIN OR NUMBNESS? NO . GASTROENTEROLOGY: ANY NEW CHANGE IN BOWEL CONTROL? NO . GENITOURINARY: ANY NEW CHANGE IN BLADDER CONTROL? NO . IS THERE A CHANCE YOU COULD BE ? NO . HEMATOLOGY/LYMPH: DO YOU TAKE ANY BLOOD THINNERS? (FOR EXAMPLE- COUMADIN, PLAVIX, AGGRENOX, PLATEL, PRADAXA, OR XARELTO) NO . WHEN WAS YOUR LAST DOSE? DATE: TIME: . NEUROLOGY: HAVE YOU FALLEN IN THE PAST 12 MONTHS? YES . ANY NEW EXTREMITY NUMBNESS OR WEAKNESS? NO . CARDIOLOGY: DO YOU HAVE A PACEMAKER OR DEFIBRILLATOR? NO . RESPIRATORY: HAVE YOU BEEN SICK IN THE PAST WEEK? NO . FEVER NO . FLU LIKE SYMPTOMS? NO . COUGH NO . INTEGUMENTARY: DO YOU HAVE ANY RASHES OR OPEN SORES? NO . ALLERGIC/IMMUNO: ARE YOU ALLERGIC TO IV DYE? NO . ANY NEW ALLERGIES? NO . PSYCHIATRIC: DO YOU HAVE THOUGHTS OF HURTING YOURSELF OR SOMEONE ELSE? NO . ARE YOU ABUSED, NEGLECTED, OR IN AN UNSAFE ENVIRONMENT? NO . ENDOCRINOLOGY: ARE YOU DIABETIC? YES . OTHER: DO YOU NEED ANY PRESCRIPTIONS? NO . IF YES, PLEASE LIST: ____ . ANY NEW PROBLEMS WITH YOUR MEDICATIONS? NO . WHEN DID YOU LAST EAT? ____ . WHEN DID YOU LAST DRINK? ____ . WHAT DID YOU LAST DRINK? ____ . NAME OF PERSON DRIVING YOU HOME? ____ . DO YOU HAVE ANY OTHER QUESTIONS OR CONCERNS NO . VITAL SIGNS WT 352.6 LBS, HT 75 IN, BMI 44.07 INDEX, BP 156/88 MM HG, HR 79 /MIN, RR 18 /MIN, TEMP 96.6 F, OXYGEN SAT % 98%, NA INITIALS AW 1512. EXAMINATION GENERAL EXAMINATION: PATIENT IS ALERT O X 3 AND COOPERATIVE. TENDERNESS OVE THE PARASPINAL MUSCLE GROUP OF THE NECK, SHOULDER, AND THORACIC AREAS. PRESENCE OF BANDS OF TISSUE AND TRIGGER POINTS WITH RESTRICTION OF MOVEMENT OF THE NECK, SHOULDER, AND THORACIC AREAS. PATIENT CAN ABDUCT BOTH ARMS TO SHOULDER LEVEL. ASSESSMENTS MYALGIA, OTHER SITE - M79.18 (PRIMARY) CERVICALGIA - M54.2 PAIN IN THORACIC SPINE - M54.6 OTHER CHRONIC PAIN - G89.29 TREATMENT MYALGIA, OTHER SITE CLINICAL NOTES: WE DISCUSSED SEVERAL ISSUES WITH MR. JI' PAIN MANAGEMENT CASE. DUE TO THE TRIGGER POINTS, BANDS OF TISSUE, AND RESTRICTION OF MOVEMENT, I WOULD LIKE TO MOVE FORWARD WITH NECK, SHOULDER, AND THORACIC TRIGGER POINT INJECTIONS AT THIS TIME. WE DISCUSSED THE BENEFITS, RISKS, AND ALTERNATIVES OF THE INJECTION AND THE PATIENT WOULD LIKE TO PROCEED. I AM LOOKING FOR LONG LASTING PAIN RELIEF FROM THIS INJECTION FOR THE PATIENT. WE AGREED TO START THE MEDICATION WEANING PROCESS AFTER THE TRIGGER POINT INJECTIONS. THE PATIENT WILL FOLLOW UP IN SEVERAL WEEKS TO SEE HOW THE INJECTIONS ARE HELPING WITH HIS PAIN. INSTRUCTIONS WERE GIVEN, QUESTIONS WERE ANSWERED, PATIENT REPORTS UNDERSTANDING AND AGREES WITH THE PLAN. I, ROMAN DANIELLE, DOCUMENTED THE ABOVE INFORMATION ACTING A SCRIBE FOR DR. LEONARDO. I HAVE REVIEWED THE ABOVE DOCUMENT, WRITTEN BY ROMAN DICKIBAlanna AND I VERIFY THAT IT IS ACCURATE.. PROCEDURE CODES G8427 CURRENT MEDS W/DOSAGES DOCUMENTED G8730 PAIN ASSESS POS TOOL F/U PLAN DOC FA211 ESTABILISHED PATIENT [facility] CHARGE DISPOSITION & COMMUNICATION ELECTRONICALLY SIGNED BY JAVON LEONARDO MD, MD ON 09/10/2019 AT 04:05 PM EST DISCLAIMER : THIS IS A VISIT SUMMARY EXTRACTED FROM THE [employer] CHART. IT IS NOT A COPY OF THE [employer] PROGRESS NOTE. NAHEED
== END ==
LOC: M PAIN 15:00
PROVIDERS: ATTEND Anesthesiology
DX: M79.18 Myalgia, other site (principal); M54.2 Cervicalgia; M54.6 Pain in thoracic spine; G89.29 Other chronic pain; E11.9 Type 2 diabetes mellitus without complications; I10 Essential (primary) hypertension; E03.9 Hypothyroidism, unspecified; G43.909 Migraine, unspecified, not intractable, without status migrainosus; Z88.1 Allergy status to other antibiotic agents; Z88.8 Allergy status to other drugs, medicaments and biological substances; E66.01 Morbid (severe) obesity due to excess calories; Z68.41 Body mass index [BMI] 40.0-44.9, adult; Z79.84 Long term (current) use of oral hypoglycemic drugs; Z79.891 Long term (current) use of opiate analgesic; Z79.899 Other long term (current) drug therapy

== ENCOUNTER → 2019-10-03 | Outpatient (CLI) | payer OTHER ==
[~2019-10-03] MED LIST changes: +BUPIVACAINE HCL 0.25% 10 ML VIAL As Ordered ONE; +BUPIVACAINE HCL 0.25% 30 ML VIAL As Ordered ONE; +TRIAMCINOLONE ACETONIDE SUSP 40 MG/ML VIAL (J3301) As Ordered ONE
--- NOTE | 2019-10-17 03:17 | ECWPNPC ---
PATIENT NAME: ALEX JI : 1965 GENDER: MALE VISIT DATE: 10/03/2019 DISCHARGE DATE: 10/03/19 1108 VISIT LOCKED DATE TIME: PHYSICIAN: JAVON LEONARDO MD RESOURCE: JAVON LEONARDO MD REASON FOR APPOINTMENT 1. W/C BILAT NECK/RT SHOULDER TPI HISTORY OF PRESENT ILLNESS HISTORY OF PRESENT ILLNESS: PAIN THE PATIENT DESCRIBES THE PAIN... FALL RISK SCREENING: SCREENING :NO FALLS REPORTED IN THE LAST YEAR CURRENT MEDICATIONS TAKING NARCAN 4 MG/0.1ML LIQUID DIRECTED NASALLY FOR OPIOID OVERDOSE, NOTES: NONE LATELY TAKING PINDOLOL 5 MG TABLET 1 TABLET ORALLY QID, NOTES: 10/03/19 AM TAKING POTASSIUM CHLORIDE 10 MEQ (PRT) TABLET EXTENDED RELEASE 1 TABLET ORALLY TWICE DAILY, NOTES: 10/03/19 AM TAKING METFORMIN HCL ER 750 MG TABLET EXTENDED RELEASE 24 HOUR ORALLY TWICE A DAY, NOTES: 10/02 19 TAKING COLACE 100 MG CAPSULE 1 CAPSULE NEEDED ORALLY ONCE A DAY, NOTES: NONE LATELY TAKING CYCLOBENZAPRINE HCL 10 MG TABLET 1 TABLET NEEDED ORALLY Q6-8H PRN FOR SEVERE MUSCLE SPASM PAIN #45 TAB. SHOULD LAST 30 DAYS, NOTES: 10/02/19 TAKING TOPAMAX 100 MG TABLET 1 TABLET ORALLY FOR PAIN TWICE A DAY, NOTES: 10/03/19 TAKING KETOROLAC TROMETHAMINE 10 MG TABLET 1 TABLET WITH FOOD OR MILK NEEDED ORALLY Q6H PRN FOR SEVERE PAIN MDD4, NOTES: 10/02/19 TAKING ATENOLOL 50 MG TABLET 1 TABLET ORALLY BID, NOTES: 10/02/19 TAKING LEVOTHYROXINE SODIUM 50 MCG TABLET 1 TABLET ORALLY ONCE A DAY, NOTES: 10/02/19 TAKING TRIAMTERENE-HCTZ 37.5-25 MG TABLET 1 TABLET IN THE MORNING ORALLY ONCE A DAY, NOTES: 10/03/19 AM TAKING FLONASE ALLERGY RELIEF 50 MCG/ACT SUSPENSION 1 SPRAY IN EACH NOSTRIL NASALLY ONCE A DAY, NOTES: NONE LATELY TAKING FENTANYL 50 MCG/HR PATCH 72 HOUR 1 PATCH TO SKIN TRANSDERMAL Q72 HR=MDD, NOTES: 10/01/19 TAKING PERCOCET 7.5-325 MG TABLET 1 ORALLY Q6H PRN MDD4, NOTES: 10/03/19 TAKING AMITRIPTYLINE HCL 50 MG TABLET 3 ORALLY FOR PAIN ONCE A DAY, NOTES: 10/02/19 MEDICATION LIST REVIEWED AND RECONCILED WITH THE PATIENT PAST MEDICAL HISTORY DM, HTN, CHRONIC PAIN , THYROID DISEASE, GERD, MIGRANES LEFT KNEE PAIN RIGHT SHOULDER LABRIUM TEAR ALLERGIES AZITHROMYCIN: LIP SWELLING - ALLERGY SUMATRIPTAN: FACIAL SWELLING - ALLERGY PROPOXYPHENE: PRICKLY FEELING, RASH, SOB - ALLERGY SURGICAL HISTORY FUSION C3-C4 1994 3 SURGURIES TO LEFT KNEE 1993 FAMILY HISTORY FATHER: 51 YRS, DIAGNOSED WITH DIABETES MOTHER: 50 YRS, OTHER MALIGNANT NEOPLASM OF UNSPECIFIED SITE 3 BROTHER(S) , 2 SISTER(S) . 1 SON(S) - HEALTHY. ON BROTHER R\/T PANCREATIC CANCER, ONE SISTER WITH MS \NBROTHER - COMPLICATIONS FROM AGENT ORANGE\NBROTHER - BLOOD CLOT. SOCIAL HISTORY GENERAL: TOBACCO USE ARE YOU A:NONSMOKER HIV / HEP-C SCREENING HIV TEST OFFERED TO PATIENT:YES DATE OFFERED:01/17/2018 TEST ACCEPTED:NO HEP-C TEST OFFERED TO PATIENT:YES DATE OFFERED:01/17/2018 REASON:PATIENT DECLINED TEST ACCEPTED:NO REASON:PATIENT DECLINED BROCHURE PROVIDED TO PATIENTNO LANGUAGE LANGUAGES SPOKEN:PRYDEINIG DOMESTIC VIOLENCE DO YOU FEEL SAFE IN YOUR ENVIRONMENT?YES RECREATIONAL DRUG USE DRUG USE?NO LEARNING BARRIERS / SPECIAL NEEDS CHANGE FROM LAST VISIT?NO BARRIERS TO LEARNING?NO HEARING IMPAIRED?NO VISION IMPAIRED?YES COGNITIVELY IMPAIRED?NO :CORRECTIVE LENSES READINESS TO LEARN?YES LEARNING PREFERENCES?YES :BOOKLETS, HANDOUTS LEARNING CAPABILITIES PRESENT?YES EMOTIONAL BARRIERS?NO SPECIAL DEVICES?YES :CANE, WHEELCHAIR LUNG CANCER SCREENING SMOKING STATUS:NON SMOKER PAIN CLINIC PFS, CLERGY, PUBLIC HEALTH REFERRALS PFS REFERRAL NEEDED?NO CLERGY REFERRAL NEEDED?NO PUBLIC HEALTH REFERRAL NEEDED?NO WAS THE PROVIDER NOTIFIED OF ANY PERTINENT INFO?YES N/A HAS THE PATIENT BEEN EDUCATED REGARDING HIS/HER PLAN OF CARE?YES HAS THE PATIENT BEEN EDUCATED REGARDING PAIN, THE RISK FOR PAIN, THE IMPORTANCE OF EFFECTIVE PAIN MANAGEMENT, AND THE PAIN ASSESSMENT PROCESS?YES LATEX QUESTIONNAIRE LATEX ALLERGY : HAVE YOU EVER DEVELOPED ANY TYPE OF REACTION AFTER HANDLING LATEX PRODUCTS SUCH RUBBER GLOVES, CONDOMS, DIAPHRAGMS, BALLOONS, SOCKS, OR UNDERWEAR?NO LATEX ALLERGY : HAVE YOU EVER DEVELOPED ANY TYPE OF REACTION DURING OR AFTER DENTAL APPOINTMENT, VAGINAL/RECTAL EXAMINATION, SURGICAL PROCEDURE, OR ANY OTHER EXPOSURE?NO LATEX RISK : HAVE YOU EVER HAD ANY DIFFICULTY BREATHING OR HIVES AFTER EATING OR HANDLING ANY FRUITS, OR VEGETABLES; SUCH KIWI, BANANAS, STONE FRUITS, OR CHESTNUTSNO LATEX RISK : DO YOU HAVE A PREVIOUS PERSONAL HISTORY OF MORE THAN NINE SURGERIES, SPINA BIFIDA, OR REPEATED CATHERIZATIONS? NO LATEX RISK : ARE YOU FREQUENTLY EXPOSED TO LATEX PRODUCTS IN YOUR OCCUPATION?NO DATE ASKED : 09/25/2019 CAFFEINE CAFFEINE USE?NO ADVANCE DIRECTIVE ADVANCE DIRECTIVE DISCUSSED WITH PATIENT:YES HCP - SHE JI () HOLINESS [id number] JEWISH ALCOHOL SCREENING DID YOU HAVE A DRINK CONTAINING ALCOHOL IN THE PAST YEAR?NO POINTS0 INTERPRETATIONNEGATIVE REVIEWED 04/15/18 1430 LAS REVIEWED WITH PATIENT 09/27/18 1512 JS REVIEWED WITH PATIENT 08/08/19 1638 BVREVIEWED WITH PATIENT 09/25/19 1025 NLJPRE PROCEDURE TELEPHONE CALL COMPLETED 09/25/19 1033 NLJ. HOSPITALIZATION/MAJOR DIAGNOSTIC PROCEDURE SURGERIES HYPERTENSION HEAD INJURY 03/1986 REVIEW OF SYSTEMS REVIEWED BY: PROVIDER: . CONSTITUTIONAL: ANY CHANGE IN YOUR MEDICAL CONDITION? NO . CHILLS NO . FEVER NO . INFECTION: DO YOU HAVE NEW INFECTIONS? NO . DO YOU HAVE HISTORY OF MRSA? NO . MUSCULOSKELETAL: ANY NEW PATTERNS OF PAIN OR NUMBNESS? YES - NUMBNESS . GASTROENTEROLOGY: ANY NEW CHANGE IN BOWEL CONTROL? NO . GENITOURINARY: ANY NEW CHANGE IN BLADDER CONTROL? NO . IS THERE A CHANCE YOU COULD BE ? NO . HEMATOLOGY/LYMPH: DO YOU TAKE ANY BLOOD THINNERS? (FOR EXAMPLE- COUMADIN, PLAVIX, AGGRENOX, PLATEL, PRADAXA, OR XARELTO) NO . WHEN WAS YOUR LAST DOSE? DATE: TIME: . NEUROLOGY: HAVE YOU FALLEN IN THE PAST 12 MONTHS? YES . ANY NEW EXTREMITY NUMBNESS OR WEAKNESS? YES . CARDIOLOGY: DO YOU HAVE A PACEMAKER OR DEFIBRILLATOR? NO . RESPIRATORY: HAVE YOU BEEN SICK IN THE PAST WEEK? NO . FEVER NO . FLU LIKE SYMPTOMS? NO . COUGH NO . INTEGUMENTARY: DO YOU HAVE ANY RASHES OR OPEN SORES? NO . ALLERGIC/IMMUNO: ARE YOU ALLERGIC TO IV DYE? NO . ANY NEW ALLERGIES? NO . PSYCHIATRIC: DO YOU HAVE THOUGHTS OF HURTING YOURSELF OR SOMEONE ELSE? NO . ARE YOU ABUSED, NEGLECTED, OR IN AN UNSAFE ENVIRONMENT? NO . ENDOCRINOLOGY: ARE YOU DIABETIC? YES . OTHER: DO YOU NEED ANY PRESCRIPTIONS? NO . IF YES, PLEASE LIST: ____ . ANY NEW PROBLEMS WITH YOUR MEDICATIONS? NO . WHEN DID YOU LAST EAT? 10/02/19 1900 . WHEN DID YOU LAST DRINK? 10/03/19 0600 . WHAT DID YOU LAST DRINK? WATER . NAME OF PERSON DRIVING YOU HOME? DILCIA GARRISON . DO YOU HAVE ANY OTHER QUESTIONS OR CONCERNS NO . VITAL SIGNS WT 350.0 LBS, HT 75 IN, BMI 43.74 INDEX, BP 182/87 MM HG, HR 80 /MIN, RR 18 /MIN, TEMP 98.0 F, OXYGEN SAT % 96%, NA INITIALS AW 0921, REVIEWED BY: THEODORE. ASSESSMENTS MYALGIA, OTHER SITE - M79.18 (PRIMARY) PROCEDURES PN WORKMANS' COMP OPINION IN YOUR OPINION, WAS THE INCIDENT THAT THE PATIENT DESCRIBED THE COMPETENT MEDICAL CAUSE OF THIS INJURY/ILLNESS? YES ARE THE PATIENT'S COMPLAINTS CONSISTENT WITH HIS/HER HISTORY OF THE INJURY/ILLNESS? YES IS THE PATIENT'S HISTORY OF THE INJURY/ILLNESS CONSISTENT WITH YOUR OBJECTIVE FINDING? YES WHAT IS THE PERCENTAGE OF TEMPORARY IMPAIRMENT? TOTAL = 100% IS THE PATIENT WORKING? NO DOCTOR ON SITE: JAVON VALDEZ MD PN TRIGGER POINT INJECTION WITH STEROIDS PRE PROCEDURE DIAGNOSIS 1. MYALGIA 2. PAIN AT BILATERAL NECK AREA AND RIGHT SHOULDER AREA. POST PROCEDURE DIAGNOSIS 1. MYALGIA 2. PAIN AT BILATERAL NECK AREA AND RIGHT SHOULDER AREA. PROCEDURE TRIGGER POINT INJECTION AT BILATERAL NECK AREA AND RIGHT SHOULDER AREA. SURGEON DR. JAVON LEONARDO PASTE MIXER NONE ANESTHESIA LOCAL PRE PROCEDURE NOTE THE PATIENT HAS A HISTORY OF CHRONIC PAIN AT THE BILATERAL NECK AREA AND RIGHT SHOULDER AREA. I EVALUATED THE PATIENT AND REVIEWED THE CHART. THERE IS EVIDENCE OF BANDS OF TISSUE WITH RESTRICTION OF MOVEMENT AND PRESENCE OF TRIGGER POINT AT THE AFFECTED AREA. I WENT OVER THE RISKS, ALTERNATIVES, AND BENEFITS ASSOCIATED WITH THIS PROCEDURE. THE PATIENT WOULD LIKE TO PROCEED AND GIVES CONSENT TO PERFORM THE PROCEDURE. THE PATIENT DENIES UNEXPLAINABLE WEIGHT LOSS, FEVER, CHILLS, OR NEW CHANGES IN URINARY OR BOWEL CONTROL DESCRIPTION OF PROCEDURE THE PATIENT WAS BROUGHT TO THE PROCEDURE ROOM AND PLACED IN THE SITTING POSITION. THE AREA WAS CLEANED WITH ALCOHOL. THE PROCEDURE WAS DONE USING ASEPTIC STERILE TECHNIQUE. I CHECKED LATERALITY AND THE LEVEL WHERE THE PROCEDURE WAS GOING TO BE PERFORMED WITH THE PATIENT AND THE SUPPORTING STAFF AT THE MOMENT OF THE TIME OUT IN THE PROCEDURE ROOM. USING A 25-GAUGE NEEDLE, TRIGGER POINTS WERE INJECTED AT THE RIGHT AND LEFT NECK AREA AND RIGHT SHOULDER AREA WITH A TOTAL OF 40 ML OF BUPIVACAINE 0.25% AND KENALOG 40 MG. THERE WAS NO EVIDENCE OF BLOOD, PARESTHESIA OR CEREBROSPINAL FLUID DURING THE PROCEDURE. THE PATIENT WAS SENT TO THE RECOVERY ROOM. THE PATIENT WAS MOVING THE EXTREMITIES AND DOING WELL. THERE WAS NO COMPLICATION DURING THE PROCEDURE POST PROCEDURE NOTE I AM LOOKING FOR LONG LASTING PAIN RELIEF WITH THIS INTERVENTION. THE PATIENT WILL BE SEEN IN A FOLLOW UP IN THE NEXT FEW WEEKS. INSTRUCTIONS WERE GIVEN, QUESTIONS WERE ANSWERED, AND THE PATIENT EXPRESSED UNDERSTANDING AND AGREES WITH THE PLAN. I, ROMAN DANIELLE, DOCUMENTED THE ABOVE INFORMATION ACTING A SCRIBE FOR DR. LEONARDO. I HAVE REVIEWED THE ABOVE DOCUMENT, WRITTEN BY ROMAN DANIELLE SCRIBAlanna AND I VERIFY THAT IT IS ACCURATE. PROCEDURE CODES 21262 INJECT TRIGGER POINTS 3/> DISPOSITION & COMMUNICATION FOLLOW UP 3 WEEKS ELECTRONICALLY SIGNED BY JAVON LEONARDO MD, MD ON 10/16/2019 AT 01:54 PM EST DISCLAIMER : THIS IS A VISIT SUMMARY EXTRACTED FROM THE [employer] CHART. IT IS NOT A COPY OF THE [employer] PROGRESS NOTE. NAHEED
== END ==
LOC: M PAIN 09:00
PROVIDERS: ATTEND Anesthesiology
DX: M79.18 Myalgia, other site (principal)
CPT/HCPCS: 20553; J3301

== ENCOUNTER → 2019-10-24 | Outpatient (CLI) | payer OTHER ==
[~2019-10-24] MED LIST changes: -BUPIVACAINE HCL 0.25% 10 ML VIAL As Ordered ONE
--- NOTE | 2019-11-06 03:30 | ECWPNPC ---
PATIENT NAME: ALEX JI : 1965 GENDER: MALE VISIT DATE: 10/24/2019 DISCHARGE DATE: 10/24/19 1441 VISIT LOCKED DATE TIME: PHYSICIAN: JAVON LEONARDO MD RESOURCE: JAVON LEONARDO MD REASON FOR APPOINTMENT 1. W/C BILATERAL THORACIC TPI HISTORY OF PRESENT ILLNESS HISTORY OF PRESENT ILLNESS: PAIN THE PATIENT DESCRIBES THE PAIN... FALL RISK SCREENING: SCREENING :NO FALLS REPORTED IN THE LAST YEAR CURRENT MEDICATIONS TAKING NARCAN 4 MG/0.1ML LIQUID DIRECTED NASALLY FOR OPIOID OVERDOSE, NOTES: NONE LATELY TAKING PINDOLOL 5 MG TABLET 1 TABLET ORALLY QID, NOTES: 10/24/19 6A TAKING POTASSIUM CHLORIDE 10 MEQ (PRT) TABLET EXTENDED RELEASE 1 TABLET ORALLY TWICE DAILY, NOTES: 10/24/19 6A TAKING METFORMIN HCL ER 750 MG TABLET EXTENDED RELEASE 24 HOUR ORALLY TWICE A DAY, NOTES: 10/23/19 5PM TAKING COLACE 100 MG CAPSULE 1 CAPSULE NEEDED ORALLY ONCE A DAY, NOTES: 10/24/19 6AM TAKING CYCLOBENZAPRINE HCL 10 MG TABLET 1 TABLET NEEDED ORALLY Q6-8H PRN FOR SEVERE MUSCLE SPASM PAIN #45 TAB. SHOULD LAST 30 DAYS, NOTES: 10/24/19 6AM TAKING TOPAMAX 100 MG TABLET 1 TABLET ORALLY FOR PAIN TWICE A DAY, NOTES: 10/24/19 6AM TAKING KETOROLAC TROMETHAMINE 10 MG TABLET 1 TABLET WITH FOOD OR MILK NEEDED ORALLY Q6H PRN FOR SEVERE PAIN MDD4, NOTES: 10/24/19 6AM TAKING ATENOLOL 50 MG TABLET 1 TABLET ORALLY BID, NOTES: 10/24/19 6AM TAKING LEVOTHYROXINE SODIUM 50 MCG TABLET 1 TABLET ORALLY ONCE A DAY, NOTES: 10/24/19 6AM TAKING TRIAMTERENE-HCTZ 37.5-25 MG TABLET 1 TABLET IN THE MORNING ORALLY ONCE A DAY, NOTES: 10/24/19 6AM TAKING FLONASE ALLERGY RELIEF 50 MCG/ACT SUSPENSION 1 SPRAY IN EACH NOSTRIL NASALLY ONCE A DAY, NOTES: 10/24/19 6AM TAKING FENTANYL 50 MCG/HR PATCH 72 HOUR 1 PATCH TO SKIN TRANSDERMAL Q72 HR=MDD, NOTES: 2 DAYS AGO TAKING PERCOCET 7.5-325 MG TABLET 1 ORALLY Q6H PRN MDD4, NOTES: 10/24/19 6AM TAKING AMITRIPTYLINE HCL 50 MG TABLET 3 ORALLY FOR PAIN ONCE A DAY, NOTES: 10/24/19 6AM MEDICATION LIST REVIEWED AND RECONCILED WITH THE PATIENT PAST MEDICAL HISTORY DM, HTN, CHRONIC PAIN , THYROID DISEASE, GERD, MIGRANES LEFT KNEE PAIN RIGHT SHOULDER LABRIUM TEAR ALLERGIES AZITHROMYCIN: LIP SWELLING - ALLERGY SUMATRIPTAN: FACIAL SWELLING - ALLERGY PROPOXYPHENE: PRICKLY FEELING, RASH, SOB - ALLERGY SURGICAL HISTORY FUSION C3-C4 1994 3 SURGURIES TO LEFT KNEE 1993 FAMILY HISTORY FATHER: 51 YRS, DIAGNOSED WITH DIABETES MOTHER: 50 YRS, OTHER MALIGNANT NEOPLASM OF UNSPECIFIED SITE 3 BROTHER(S) , 2 SISTER(S) . 1 SON(S) - HEALTHY. ON BROTHER R\/T PANCREATIC CANCER, ONE SISTER WITH MS \NBROTHER - COMPLICATIONS FROM AGENT ORANGE\NBROTHER - BLOOD CLOT. SOCIAL HISTORY GENERAL: TOBACCO USE ARE YOU A:NONSMOKER HIV / HEP-C SCREENING HIV TEST OFFERED TO PATIENT:YES DATE OFFERED:01/17/2018 TEST ACCEPTED:NO HEP-C TEST OFFERED TO PATIENT:YES DATE OFFERED:01/17/2018 REASON:PATIENT DECLINED TEST ACCEPTED:NO REASON:PATIENT DECLINED BROCHURE PROVIDED TO PATIENTNO LANGUAGE LANGUAGES SPOKEN:URDU DOMESTIC VIOLENCE DO YOU FEEL SAFE IN YOUR ENVIRONMENT?YES RECREATIONAL DRUG USE DRUG USE?NO LEARNING BARRIERS / SPECIAL NEEDS CHANGE FROM LAST VISIT?NO BARRIERS TO LEARNING?NO HEARING IMPAIRED?NO VISION IMPAIRED?YES COGNITIVELY IMPAIRED?NO :CORRECTIVE LENSES READINESS TO LEARN?YES LEARNING PREFERENCES?YES :BOOKLETS, HANDOUTS LEARNING CAPABILITIES PRESENT?YES EMOTIONAL BARRIERS?NO SPECIAL DEVICES?YES :CANE, WHEELCHAIR LUNG CANCER SCREENING SMOKING STATUS:NON SMOKER PAIN CLINIC PFS, CLERGY, PUBLIC HEALTH REFERRALS PFS REFERRAL NEEDED?NO CLERGY REFERRAL NEEDED?NO PUBLIC HEALTH REFERRAL NEEDED?NO WAS THE PROVIDER NOTIFIED OF ANY PERTINENT INFO?YES N/A HAS THE PATIENT BEEN EDUCATED REGARDING HIS/HER PLAN OF CARE?YES HAS THE PATIENT BEEN EDUCATED REGARDING PAIN, THE RISK FOR PAIN, THE IMPORTANCE OF EFFECTIVE PAIN MANAGEMENT, AND THE PAIN ASSESSMENT PROCESS?YES LATEX QUESTIONNAIRE LATEX ALLERGY : HAVE YOU EVER DEVELOPED ANY TYPE OF REACTION AFTER HANDLING LATEX PRODUCTS SUCH RUBBER GLOVES, CONDOMS, DIAPHRAGMS, BALLOONS, SOCKS, OR UNDERWEAR?NO LATEX ALLERGY : HAVE YOU EVER DEVELOPED ANY TYPE OF REACTION DURING OR AFTER DENTAL APPOINTMENT, VAGINAL/RECTAL EXAMINATION, SURGICAL PROCEDURE, OR ANY OTHER EXPOSURE?NO LATEX RISK : HAVE YOU EVER HAD ANY DIFFICULTY BREATHING OR HIVES AFTER EATING OR HANDLING ANY FRUITS, OR VEGETABLES; SUCH KIWI, BANANAS, STONE FRUITS, OR CHESTNUTSNO LATEX RISK : DO YOU HAVE A PREVIOUS PERSONAL HISTORY OF MORE THAN NINE SURGERIES, SPINA BIFIDA, OR REPEATED CATHERIZATIONS? NO LATEX RISK : ARE YOU FREQUENTLY EXPOSED TO LATEX PRODUCTS IN YOUR OCCUPATION?NO DATE ASKED : 10/24/2019 CAFFEINE CAFFEINE USE?NO ADVANCE DIRECTIVE ADVANCE DIRECTIVE DISCUSSED WITH PATIENT:YES HCP - SHE JI () ANABAPTISM [id number] [place] ALCOHOL SCREENING DID YOU HAVE A DRINK CONTAINING ALCOHOL IN THE PAST YEAR?NO POINTS0 INTERPRETATIONNEGATIVE REVIEWED 04/15/18 1430 LAS REVIEWED WITH PATIENT 09/27/18 1512 JS REVIEWED WITH PATIENT 08/08/19 1638 BVREVIEWED WITH PATIENT 09/25/19 1025 NLJPRE PROCEDURE TELEPHONE CALL COMPLETED 09/25/19 1033 NLREVIEWED WITH PATIENT 10-24-2019 DS. HOSPITALIZATION/MAJOR DIAGNOSTIC PROCEDURE SURGERIES HYPERTENSION HEAD INJURY 03/1986 REVIEW OF SYSTEMS REVIEWED BY: PROVIDER: . CONSTITUTIONAL: ANY CHANGE IN YOUR MEDICAL CONDITION? NO . CHILLS NO . FEVER NO . INFECTION: DO YOU HAVE NEW INFECTIONS? NO . DO YOU HAVE HISTORY OF MRSA? NO . MUSCULOSKELETAL: ANY NEW PATTERNS OF PAIN OR NUMBNESS? NO . GASTROENTEROLOGY: ANY NEW CHANGE IN BOWEL CONTROL? NO . GENITOURINARY: ANY NEW CHANGE IN BLADDER CONTROL? NO . IS THERE A CHANCE YOU COULD BE ? NO . HEMATOLOGY/LYMPH: DO YOU TAKE ANY BLOOD THINNERS? (FOR EXAMPLE- COUMADIN, PLAVIX, AGGRENOX, PLATEL, PRADAXA, OR XARELTO) NO . WHEN WAS YOUR LAST DOSE? DATE: TIME: . NEUROLOGY: HAVE YOU FALLEN IN THE PAST 12 MONTHS? YES, PT STATES THAT HE FELL IN THE BATHROOM, STUMBLED, NO SIGNIFICANT INJURY. DID NOT REPORT TO ED. DS . ANY NEW EXTREMITY NUMBNESS OR WEAKNESS? NO . CARDIOLOGY: DO YOU HAVE A PACEMAKER OR DEFIBRILLATOR? NO . RESPIRATORY: HAVE YOU BEEN SICK IN THE PAST WEEK? NO . FEVER NO . FLU LIKE SYMPTOMS? NO . COUGH NO . INTEGUMENTARY: DO YOU HAVE ANY RASHES OR OPEN SORES? NO . ALLERGIC/IMMUNO: ARE YOU ALLERGIC TO IV DYE? NO . ANY NEW ALLERGIES? NO . PSYCHIATRIC: DO YOU HAVE THOUGHTS OF HURTING YOURSELF OR SOMEONE ELSE? NO . ARE YOU ABUSED, NEGLECTED, OR IN AN UNSAFE ENVIRONMENT? NO . ENDOCRINOLOGY: ARE YOU DIABETIC? YES, FSBS 92 . OTHER: DO YOU NEED ANY PRESCRIPTIONS? NO . IF YES, PLEASE LIST: ____ . ANY NEW PROBLEMS WITH YOUR MEDICATIONS? NO . WHEN DID YOU LAST EAT? 2019-10-24 6AM . WHEN DID YOU LAST DRINK? 10-24-2019 6AM . WHAT DID YOU LAST DRINK? WATER . NAME OF PERSON DRIVING YOU HOME? ALLURA . DO YOU HAVE ANY OTHER QUESTIONS OR CONCERNS NO . VITAL SIGNS WT 350.0 LBS, HT 75 IN, BMI 43.74 INDEX, BP 171/95 MM HG, HR 76 /MIN, RR 16 /MIN, TEMP 98.1 F, OXYGEN SAT % 97, SAFE IN ENV? (Y/N) Y, REVIEWED BY: ANTHONY. ASSESSMENTS MYALGIA, OTHER SITE - M79.18 (PRIMARY) TREATMENT OTHERS CONTINUE FENTANYL PATCH 72 HOUR, 25 MCG/HR, 1 PATCH TO SKIN, TRANSDERMAL, Q72 HR=MDD, 30 DAYS, 10, REFILLS 0 PROCEDURES PN WORKMANS' COMP OPINION IN YOUR OPINION, WAS THE INCIDENT THAT THE PATIENT DESCRIBED THE COMPETENT MEDICAL CAUSE OF THIS INJURY/ILLNESS? YES ARE THE PATIENT'S COMPLAINTS CONSISTENT WITH HIS/HER HISTORY OF THE INJURY/ILLNESS? YES IS THE PATIENT'S HISTORY OF THE INJURY/ILLNESS CONSISTENT WITH YOUR OBJECTIVE FINDING? YES WHAT IS THE PERCENTAGE OF TEMPORARY IMPAIRMENT? TOTAL = 100% IS THE PATIENT WORKING? NO DOCTOR ON SITE: JAVON VALDEZ MD PN TRIGGER POINT INJECTION WITH STEROIDS PRE PROCEDURE DIAGNOSIS 1. MYALGIA 2. PAIN AT BILATERAL THORACIC AREA POST PROCEDURE DIAGNOSIS 1. MYALGIA 2. PAIN AT BILATERAL THORACIC AREA PROCEDURE TRIGGER POINT INJECTION AT RIGHT AND LEFT THORACIC AREAS SURGEON DR. JAVON LEONARDO AWAKE OVERNIGHT COUNSELOR NONE ANESTHESIA LOCAL PRE PROCEDURE NOTE THE PATIENT HAS A HISTORY OF CHRONIC PAIN AT THE RIGHT THORACIC AREA AND LEFT THORACIC AREA. I EVALUATED THE PATIENT AND REVIEWED THE CHART. THERE IS EVIDENCE OF BANDS OF TISSUE WITH RESTRICTION OF MOVEMENT AND PRESENCE OF TRIGGER POINT AT THE AFFECTED AREAS. I WENT OVER THE RISKS, ALTERNATIVES, AND BENEFITS ASSOCIATED WITH THIS PROCEDURE. THE PATIENT WOULD LIKE TO PROCEED AND GIVES CONSENT TO PERFORM THE PROCEDURE. THE PATIENT DENIES UNEXPLAINABLE WEIGHT LOSS, FEVER, CHILLS, OR NEW CHANGES IN URINARY OR BOWEL CONTROL DESCRIPTION OF PROCEDURE THE PATIENT WAS BROUGHT TO THE PROCEDURE ROOM AND PLACED IN THE SITTING POSITION. THE AREA WAS CLEANED WITH ALCOHOL. THE PROCEDURE WAS DONE USING ASEPTIC STERILE TECHNIQUE. I CHECKED LATERALITY AND THE LEVEL WHERE THE PROCEDURE WAS GOING TO BE PERFORMED WITH THE PATIENT AND THE SUPPORTING STAFF AT THE MOMENT OF THE TIME OUT IN THE PROCEDURE ROOM. USING A 25-GAUGE NEEDLE, TRIGGER POINTS WERE INJECTED AT THE RIGHT THORACIC AREA AND LEFT THORACIC AREA WITH A TOTAL OF 40 ML OF BUPIVACAINE 0.25% AND KENALOG 40 MG. THERE WAS NO EVIDENCE OF BLOOD, PARESTHESIA OR CEREBROSPINAL FLUID DURING THE PROCEDURE. THE PATIENT WAS SENT TO THE RECOVERY ROOM. THE PATIENT WAS MOVING THE EXTREMITIES AND DOING WELL. THERE WAS NO COMPLICATION DURING THE PROCEDURE POST PROCEDURE NOTE THE PATIENT WILL BE SEEN IN A FOLLOWUP IN THE NEXT FEW WEEKS. I AM LOOKING FOR LONG-LASTING PAIN RELIEF WITH THIS INJECTION. INSTRUCTIONS WERE GIVEN, QUESTIONS WERE ANSWERED, AND THE PATIENT EXPRESSED UNDERSTANDING AND AGREES WITH THE PLAN. I, RAOUL RAPP, DOCUMENTED THE ABOVE INFORMATION ACTING A SCRIBE FOR DR. LEONARDO. I HAVE REVIEWED THE ABOVE DOCUMENT, WRITTEN BY SUSU ELLIOTT, AND I VERIFY THAT IT IS ACCURATE PROCEDURE CODES 83194 INJECT TRIGGER POINT, 1 OR 2 DISPOSITION & COMMUNICATION FOLLOW UP 3 WEEKS ELECTRONICALLY SIGNED BY JAVON LEONARDO MD, MD ON 11/05/2019 AT 02:55 PM EST DISCLAIMER : THIS IS A VISIT SUMMARY EXTRACTED FROM THE [employer] CHART. IT IS NOT A COPY OF THE [employer] PROGRESS NOTE. NAHEED
== END ==
LOC: M PAIN 13:15
PROVIDERS: ATTEND Anesthesiology
DX: M79.18 Myalgia, other site (principal); E11.9 Type 2 diabetes mellitus without complications; I10 Essential (primary) hypertension; E03.9 Hypothyroidism, unspecified; G43.909 Migraine, unspecified, not intractable, without status migrainosus; Z88.1 Allergy status to other antibiotic agents; Z88.8 Allergy status to other drugs, medicaments and biological substances; E66.01 Morbid (severe) obesity due to excess calories; Z68.41 Body mass index [BMI] 40.0-44.9, adult; Z79.84 Long term (current) use of oral hypoglycemic drugs; Z79.891 Long term (current) use of opiate analgesic; Z79.899 Other long term (current) drug therapy
CPT/HCPCS: 20552; J3301

== ENCOUNTER → 2019-11-10 | Outpatient (CLI) | payer OTHER ==
[~2019-11-10] MED LIST changes: -BUPIVACAINE HCL 0.25% 30 ML VIAL As Ordered ONE; -TRIAMCINOLONE ACETONIDE SUSP 40 MG/ML VIAL (J3301) As Ordered ONE
--- NOTE | 2019-11-12 01:50 | ECWPNPC ---
PATIENT NAME: ALEX JI : 1965 GENDER: MALE VISIT DATE: 11/10/2019 DISCHARGE DATE: 11/10/19 1248 VISIT LOCKED DATE TIME: PHYSICIAN: BLANE EUGENE RESOURCE: BLANE EUGENE REASON FOR APPOINTMENT 1. W/C POST THORACIC TPI HISTORY OF PRESENT ILLNESS HISTORY OF PRESENT ILLNESS: HERE FOR F/U OF CHRONIC BACK AND HEAD PAIN ASSOCIATED WITH WORK RELATED INJURY 04/13/86. HERE FOR POST POST PROCEDURE FOLLOW-UP AND MEDICINE MANAGEMENT. HAD TRIGGER POINT TO THE RIGHT SHOULDER AND BILATERAL NECK REGION ON 10/03/2019. REPORTING IMPROVEMENT IN PAIN POST PROCEDURE THAT CONTINUES TODAY. HAD BILATERAL THORACIC TRIGGER POINT INJECTIONS ON 10/24/2019. REPORTING IMPROVEMENT IN THAT REGION POST PROCEDURE THAT CONTINUES TODAY. REPORTS DISABLING LOW BACK AND LEG PAIN SINCE LOWERING FENTANYL PATCH TO 37.5 G EVERY 72 HOURS, 10 DAYS AGO. STATES MOST OF HIS DAYS ARE SPENT IN THE HOT TUB OR IN BED. REPORTING POOR QUALITY OF LIFE SINCE MEDICATION ADJUSTMENT AND LOWERING. INTERESTED IN USING MEDICAL MARIJUANA SINCE WORKMEN'S COMP WILL NOT COVER HIS CHRONIC PAIN MEDICATION THAT KEPT HIM FUNCTIONAL OVER THE PAST SEVERAL YEARS. DISCUSSED REFERRAL TO MEDICAL [facility] CONSULTANTS IN [place]. RATING PAIN LEVEL VIII/X VAS. PAIN THE PATIENT DESCRIBES THE PAIN... FALL RISK SCREENING: SCREENING :NO FALLS REPORTED IN THE LAST YEAR CURRENT MEDICATIONS TAKING NARCAN 4 MG/0.1ML LIQUID DIRECTED NASALLY FOR OPIOID OVERDOSE TAKING PINDOLOL 5 MG TABLET 1 TABLET ORALLY QID TAKING POTASSIUM CHLORIDE 10 MEQ (PRT) TABLET EXTENDED RELEASE 1 TABLET ORALLY TWICE DAILY TAKING METFORMIN HCL ER 750 MG TABLET EXTENDED RELEASE 24 HOUR ORALLY TWICE A DAY TAKING COLACE 100 MG CAPSULE 1 CAPSULE NEEDED ORALLY ONCE A DAY TAKING CYCLOBENZAPRINE HCL 10 MG TABLET 1 TABLET NEEDED ORALLY Q6-8H PRN FOR SEVERE MUSCLE SPASM PAIN #45 TAB. SHOULD LAST 30 DAYS TAKING TOPAMAX 100 MG TABLET 1 TABLET ORALLY FOR PAIN TWICE A DAY TAKING KETOROLAC TROMETHAMINE 10 MG TABLET 1 TABLET WITH FOOD OR MILK NEEDED ORALLY Q6H PRN FOR SEVERE PAIN MDD4 TAKING ATENOLOL 50 MG TABLET 1 TABLET ORALLY BID TAKING LEVOTHYROXINE SODIUM 50 MCG TABLET 1 TABLET ORALLY ONCE A DAY TAKING TRIAMTERENE-HCTZ 37.5-25 MG TABLET 1 TABLET IN THE MORNING ORALLY ONCE A DAY TAKING FLONASE ALLERGY RELIEF 50 MCG/ACT SUSPENSION 1 SPRAY IN EACH NOSTRIL NASALLY ONCE A DAY TAKING PERCOCET 7.5-325 MG TABLET 1 ORALLY Q6H PRN MDD4 TAKING AMITRIPTYLINE HCL 50 MG TABLET 3 ORALLY FOR PAIN ONCE A DAY TAKING FENTANYL 25 MCG/HR PATCH 72 HOUR 1 PATCH TO SKIN TRANSDERMAL Q72 HR=MDD MEDICATION LIST REVIEWED AND RECONCILED WITH THE PATIENT PAST MEDICAL HISTORY DM, HTN, CHRONIC PAIN , THYROID DISEASE, GERD, MIGRANES LEFT KNEE PAIN RIGHT SHOULDER LABRIUM TEAR ALLERGIES AZITHROMYCIN: LIP SWELLING - ALLERGY SUMATRIPTAN: FACIAL SWELLING - ALLERGY PROPOXYPHENE: PRICKLY FEELING, RASH, SOB - ALLERGY SURGICAL HISTORY FUSION C3-C4 1994 3 SURGURIES TO LEFT KNEE 1993 FAMILY HISTORY FATHER: 51 YRS, DIAGNOSED WITH DIABETES MOTHER: 50 YRS, OTHER MALIGNANT NEOPLASM OF UNSPECIFIED SITE 3 BROTHER(S) , 2 SISTER(S) . 1 SON(S) - HEALTHY. ON BROTHER R\/T PANCREATIC CANCER, ONE SISTER WITH MS \NBROTHER - COMPLICATIONS FROM AGENT ORANGE\NBROTHER - BLOOD CLOT. SOCIAL HISTORY GENERAL: TOBACCO USE ARE YOU A:NONSMOKER HIV / HEP-C SCREENING HIV TEST OFFERED TO PATIENT:YES DATE OFFERED:01/17/2018 TEST ACCEPTED:NO HEP-C TEST OFFERED TO PATIENT:YES DATE OFFERED:01/17/2018 REASON:PATIENT DECLINED TEST ACCEPTED:NO REASON:PATIENT DECLINED BROCHURE PROVIDED TO PATIENTNO LANGUAGE LANGUAGES SPOKEN:LAO DOMESTIC VIOLENCE DO YOU FEEL SAFE IN YOUR ENVIRONMENT?YES RECREATIONAL DRUG USE DRUG USE?NO LEARNING BARRIERS / SPECIAL NEEDS CHANGE FROM LAST VISIT?NO BARRIERS TO LEARNING?NO HEARING IMPAIRED?NO VISION IMPAIRED?YES COGNITIVELY IMPAIRED?NO :CORRECTIVE LENSES READINESS TO LEARN?YES LEARNING PREFERENCES?YES :BOOKLETS, HANDOUTS LEARNING CAPABILITIES PRESENT?YES EMOTIONAL BARRIERS?NO SPECIAL DEVICES?YES :CANE, WHEELCHAIR LUNG CANCER SCREENING SMOKING STATUS:NON SMOKER PAIN CLINIC PFS, CLERGY, PUBLIC HEALTH REFERRALS PFS REFERRAL NEEDED?NO CLERGY REFERRAL NEEDED?NO PUBLIC HEALTH REFERRAL NEEDED?NO WAS THE PROVIDER NOTIFIED OF ANY PERTINENT INFO?YES N/A HAS THE PATIENT BEEN EDUCATED REGARDING HIS/HER PLAN OF CARE?YES HAS THE PATIENT BEEN EDUCATED REGARDING PAIN, THE RISK FOR PAIN, THE IMPORTANCE OF EFFECTIVE PAIN MANAGEMENT, AND THE PAIN ASSESSMENT PROCESS?YES LATEX QUESTIONNAIRE LATEX ALLERGY : HAVE YOU EVER DEVELOPED ANY TYPE OF REACTION AFTER HANDLING LATEX PRODUCTS SUCH RUBBER GLOVES, CONDOMS, DIAPHRAGMS, BALLOONS, SOCKS, OR UNDERWEAR?NO LATEX ALLERGY : HAVE YOU EVER DEVELOPED ANY TYPE OF REACTION DURING OR AFTER DENTAL APPOINTMENT, VAGINAL/RECTAL EXAMINATION, SURGICAL PROCEDURE, OR ANY OTHER EXPOSURE?NO DATE ASKED : 10/24/2019 LATEX RISK : HAVE YOU EVER HAD ANY DIFFICULTY BREATHING OR HIVES AFTER EATING OR HANDLING ANY FRUITS, OR VEGETABLES; SUCH KIWI, BANANAS, STONE FRUITS, OR CHESTNUTSNO LATEX RISK : DO YOU HAVE A PREVIOUS PERSONAL HISTORY OF MORE THAN NINE SURGERIES, SPINA BIFIDA, OR REPEATED CATHERIZATIONS? NO LATEX RISK : ARE YOU FREQUENTLY EXPOSED TO LATEX PRODUCTS IN YOUR OCCUPATION?NO CAFFEINE CAFFEINE USE?NO ADVANCE DIRECTIVE ADVANCE DIRECTIVE DISCUSSED WITH PATIENT:YES HCP - SHE JI () LUTHERAN [id number] CATHOLIC ALCOHOL SCREENING DID YOU HAVE A DRINK CONTAINING ALCOHOL IN THE PAST YEAR?NO POINTS0 INTERPRETATIONNEGATIVE REVIEWED 04/15/18 1430 LAS REVIEWED WITH PATIENT 09/27/18 1512 JS REVIEWED WITH PATIENT 08/08/19 1638 BVREVIEWED WITH PATIENT 09/25/19 1025 NLJPRE PROCEDURE TELEPHONE CALL COMPLETED 09/25/19 1033 NLREVIEWED WITH PATIENT 10-24-2019 DS. HOSPITALIZATION/MAJOR DIAGNOSTIC PROCEDURE SURGERIES HYPERTENSION HEAD INJURY 03/1986 REVIEW OF SYSTEMS REVIEWED BY: PROVIDER: BLANE ACKERMAN . CONSTITUTIONAL: ANY CHANGE IN YOUR MEDICAL CONDITION? NO . CHILLS NO . FEVER NO . INFECTION: DO YOU HAVE NEW INFECTIONS? NO . DO YOU HAVE HISTORY OF MRSA? NO . MUSCULOSKELETAL: ANY NEW PATTERNS OF PAIN OR NUMBNESS? YES . GASTROENTEROLOGY: ANY NEW CHANGE IN BOWEL CONTROL? NO . GENITOURINARY: ANY NEW CHANGE IN BLADDER CONTROL? NO . IS THERE A CHANCE YOU COULD BE ? NO . HEMATOLOGY/LYMPH: DO YOU TAKE ANY BLOOD THINNERS? (FOR EXAMPLE- COUMADIN, PLAVIX, AGGRENOX, PLATEL, PRADAXA, OR XARELTO) NO . WHEN WAS YOUR LAST DOSE? DATE: TIME: . NEUROLOGY: HAVE YOU FALLEN IN THE PAST 12 MONTHS? YES . ANY NEW EXTREMITY NUMBNESS OR WEAKNESS? NO . CARDIOLOGY: DO YOU HAVE A PACEMAKER OR DEFIBRILLATOR? NO . RESPIRATORY: HAVE YOU BEEN SICK IN THE PAST WEEK? NO . FEVER NO . FLU LIKE SYMPTOMS? NO . COUGH NO . INTEGUMENTARY: DO YOU HAVE ANY RASHES OR OPEN SORES? NO . ALLERGIC/IMMUNO: ARE YOU ALLERGIC TO IV DYE? NO . ANY NEW ALLERGIES? NO . PSYCHIATRIC: DO YOU HAVE THOUGHTS OF HURTING YOURSELF OR SOMEONE ELSE? NO . ARE YOU ABUSED, NEGLECTED, OR IN AN UNSAFE ENVIRONMENT? NO . ENDOCRINOLOGY: ARE YOU DIABETIC? YES . OTHER: DO YOU NEED ANY PRESCRIPTIONS? YES . IF YES, PLEASE LIST: ALL . ANY NEW PROBLEMS WITH YOUR MEDICATIONS? NO . WHEN DID YOU LAST EAT? ____ . WHEN DID YOU LAST DRINK? ____ . WHAT DID YOU LAST DRINK? ____ . NAME OF PERSON DRIVING YOU HOME? ____ . DO YOU HAVE ANY OTHER QUESTIONS OR CONCERNS YES - JORDEN FAM WANTED ME TO TALK TO YOU ABOUT MEDICAL MARIJUANA . VITAL SIGNS WT 350 LBS, HT 75 IN, BMI 43.74 INDEX, BP 147/92 MM HG, HR 84 /MIN, RR 16 /MIN, TEMP 96.4 F, OXYGEN SAT % 96%, NA INITIALS AW 1132, REVIEWED BY: THEODORE. EXAMINATION GENERAL EXAMINATION: LUNGS:LUNG SOUNDS ARE CLEAR . HEART:HEART RATE REGULAR . MUSCULOSKELETAL:*, TRIGGER POINTS:, ELICITED WITH PALPATION OVER CERVICAL SPINOUS PROCESSES AND ACROSS THE TRAPEZIUS MUSCLES BILATERALLY. RESTRICTION OF ROM IS NOTED. MUSCLE SPASM IS NOTED ACROSS TRAPEZIUS BILAT.. FOR BILAT. SIJ MUSCLE STRENGTH TESTING 3/5 BILATERAL LOWER EXTREMITIES. PALPATION: POSITIVE FOR PAIN OVER L/S SPINE. POSITIVE FOR PAIN OVER L/S PARSPINALS. MULTIPLE TRIGGER POINTS ELICITED NECK AND TRAPEZIUS BILAT. . NEUROLOGIC EXAM:CN'S II-XII GROSSLY INTACT.WALKS WITH WIDE BASED ANTALGIC GAIT WITH ASSIST OF CANE AND .VERY UNSTEADY POSITIVE ROMBERG. DIAGNOSTIC: . ASSESSMENTS CHRONIC PAIN DISORDER - G89.4 (PRIMARY) TREATMENT CHRONIC PAIN DISORDER REFILL COLACE CAPSULE, 100 MG, 1 CAPSULE NEEDED, ORALLY, ONCE A DAY, 30 DAYS, 30 CAPSULE, REFILLS 5 REFILL CYCLOBENZAPRINE HCL TABLET, 10 MG, 1 TABLET NEEDED, ORALLY, Q6-8H PRN FOR SEVERE MUSCLE SPASM PAIN #45 TAB. SHOULD LAST 30 DAYS, 30 DAYS, 45, REFILLS 5 REFILL TOPAMAX TABLET, 100 MG, 1 TABLET, ORALLY FOR PAIN, TWICE A DAY, 30 DAYS, 60 TABLET, REFILLS 5 REFILL KETOROLAC TROMETHAMINE TABLET, 10 MG, 1 TABLET WITH FOOD OR MILK NEEDED, ORALLY, Q6H PRN FOR SEVERE PAIN MDD4, 30 DAYS, 20, REFILLS 5 REFILL PERCOCET TABLET, 7.5-325 MG, 1, ORALLY, Q6H PRN MDD4, 30 DAYS, 120, REFILLS 0 REFILL AMITRIPTYLINE HCL TABLET, 50 MG, 3, ORALLY FOR PAIN, ONCE A DAY, 30 DAYS, 90, REFILLS 5 DECREASE FENTANYL PATCH 72 HOUR, 12 MCG/HR, 1 PATCH TO SKIN, TRANSDERMAL, Q72 HR=MDD, 24 DAYS, 8, REFILLS 0 NOTES: ISTOP REGISTRY REVIEWED AND DEMONSTRATES COMPLLIANCE. BRINGS IN MEDICATIONS WHICH IS APPROPRIATE FOR WHAT WAS DISPENSED. RECENT URINE TOXICOLOGY REVIEWED. NO UNAUTHORIZED MEDICATIONS. NO ILLICIT SUBSTANCES AND PRESCRIBED MEDICATIONS WERE PRESENT. W/C REFERAL TO [facility]. REFERRAL TO: [facility] REASON:WORKMANS COMP CENTRAL PAIN SYNDROME/CHRONIC PAIN/HEAD INJURY DOI:04/13/86 PROCEDURES PN WORKMANS' COMP OPINION IN YOUR OPINION, WAS THE INCIDENT THAT THE PATIENT DESCRIBED THE COMPETENT MEDICAL CAUSE OF THIS INJURY/ILLNESS? YES ARE THE PATIENT'S COMPLAINTS CONSISTENT WITH HIS/HER HISTORY OF THE INJURY/ILLNESS? YES IS THE PATIENT'S HISTORY OF THE INJURY/ILLNESS CONSISTENT WITH YOUR OBJECTIVE FINDING? YES WHAT IS THE PERCENTAGE OF TEMPORARY IMPAIRMENT? MARKED = 75% IS THE PATIENT WORKING? NO DOCTOR ON SITE: JAVON VALDEZ MD PROCEDURE CODES FA211 ESTABILISHED PATIENT [facility] FACILITY CHARGE DISPOSITION & COMMUNICATION FOLLOW UP 3 WEEKS (REASON: W/C REFERAL TO [facility]) ELECTRONICALLY SIGNED BY MEKA BAPTISTE ON 11/11/2019 AT 10:10 AM EST DISCLAIMER : THIS IS A VISIT SUMMARY EXTRACTED FROM THE [employer] CHART. IT IS NOT A COPY OF THE [employer] PROGRESS NOTE. NAHEED
== END ==
LOC: M PAIN 11:00
PROVIDERS: ATTEND Nurse Practitioner Family
DX: G89.4 Chronic pain syndrome (principal); E11.9 Type 2 diabetes mellitus without complications; I10 Essential (primary) hypertension; E03.9 Hypothyroidism, unspecified; G43.909 Migraine, unspecified, not intractable, without status migrainosus; Z88.1 Allergy status to other antibiotic agents; Z88.8 Allergy status to other drugs, medicaments and biological substances; E66.01 Morbid (severe) obesity due to excess calories; Z68.41 Body mass index [BMI] 40.0-44.9, adult; Z79.84 Long term (current) use of oral hypoglycemic drugs; Z79.891 Long term (current) use of opiate analgesic; Z79.899 Other long term (current) drug therapy

== ENCOUNTER → 2019-12-16 | Outpatient (CLI) | payer OTHER ==
[~2019-12-16] MED LIST changes: +METF500T13 PO
--- NOTE | 2019-12-17 02:13 | ECWPNPC ---
PATIENT NAME: ALEX JI : 1965 GENDER: MALE VISIT DATE: 12/16/2019 DISCHARGE DATE: 12/16/19 1010 VISIT LOCKED DATE TIME: PHYSICIAN: BLANE EUGENE RESOURCE: BLANE EUGENE REASON FOR APPOINTMENT 1. FOLLOW UP HISTORY OF PRESENT ILLNESS HISTORY OF PRESENT ILLNESS: HERE FOR FOLLOW-UP OF CHRONIC HEAD AND BACK PAIN. THIS IS A WORK RELATED INJURY WITH DATE OF INJURY 04/13/1986. COMPLAINING OF SEVERE DAILY HEADACHES. HAS BENEFITED FROM BOTOX IN THE PAST. IT'S BEEN SEVERAL MONTHS SINCE LAST BOTOX. RATING PAIN LEVEL A 7/10. CURRENTLY USING COLACE, CYCLOBENZAPRINE, TOPAMAX, KETOROLAC, PERCOCET AND AMITRIPTYLINE. FINDINGS MEDICATION SOMEWHAT HELPFUL. HAS DISCONTINUED FENTANYL PATCH. USING MEDICAL MARIJUANA. PAIN THE PATIENT DESCRIBES THE PAIN... FALL RISK SCREENING: SCREENING :NO FALLS REPORTED IN THE LAST YEAR CURRENT MEDICATIONS TAKING NARCAN 4 MG/0.1ML LIQUID DIRECTED NASALLY FOR OPIOID OVERDOSE TAKING PINDOLOL 5 MG TABLET 1 TABLET ORALLY QID TAKING POTASSIUM CHLORIDE 10 MEQ (PRT) TABLET EXTENDED RELEASE 1 TABLET ORALLY TWICE DAILY TAKING METFORMIN HCL ER 750 MG TABLET EXTENDED RELEASE 24 HOUR ORALLY TWICE A DAY TAKING ATENOLOL 50 MG TABLET 1 TABLET ORALLY BID TAKING LEVOTHYROXINE SODIUM 50 MCG TABLET 1 TABLET ORALLY ONCE A DAY TAKING TRIAMTERENE-HCTZ 37.5-25 MG TABLET 1 TABLET IN THE MORNING ORALLY ONCE A DAY TAKING FLONASE ALLERGY RELIEF 50 MCG/ACT SUSPENSION 1 SPRAY IN EACH NOSTRIL NASALLY ONCE A DAY, NOTES: JUST NEEDED TAKING COLACE 100 MG CAPSULE 1 CAPSULE NEEDED ORALLY ONCE A DAY TAKING CYCLOBENZAPRINE HCL 10 MG TABLET 1 TABLET NEEDED ORALLY Q6-8H PRN FOR SEVERE MUSCLE SPASM PAIN #45 TAB. SHOULD LAST 30 DAYS TAKING TOPAMAX 100 MG TABLET 1 TABLET ORALLY FOR PAIN TWICE A DAY TAKING KETOROLAC TROMETHAMINE 10 MG TABLET 1 TABLET WITH FOOD OR MILK NEEDED ORALLY Q6H PRN FOR SEVERE PAIN MDD4, NOTES: NEEDED TAKING PERCOCET 7.5-325 MG TABLET 1 ORALLY Q6H PRN MDD4 TAKING AMITRIPTYLINE HCL 50 MG TABLET 3 ORALLY FOR PAIN ONCE A DAY NOT-TAKING FENTANYL 12 MCG/HR PATCH 72 HOUR 1 PATCH TO SKIN TRANSDERMAL Q72 HR=MDD, NOTES: NOT TAKING MEDICATION LIST REVIEWED AND RECONCILED WITH THE PATIENT PAST MEDICAL HISTORY DM, HTN, CHRONIC PAIN , THYROID DISEASE, GERD, MIGRANES LEFT KNEE PAIN RIGHT SHOULDER LABRIUM TEAR ALLERGIES AZITHROMYCIN: LIP SWELLING - ALLERGY SUMATRIPTAN: FACIAL SWELLING - ALLERGY PROPOXYPHENE: PRICKLY FEELING, RASH, SOB - ALLERGY SURGICAL HISTORY FUSION C3-C4 1994 3 SURGURIES TO LEFT KNEE 1993 FAMILY HISTORY FATHER: 51 YRS, DIAGNOSED WITH DIABETES MOTHER: 50 YRS, OTHER MALIGNANT NEOPLASM OF UNSPECIFIED SITE 3 BROTHER(S) , 2 SISTER(S) . 1 SON(S) - HEALTHY. ON BROTHER R\\/T PANCREATIC CANCER, ONE SISTER WITH MS \\NBROTHER - COMPLICATIONS FROM AGENT ORANGE\\NBROTHER - BLOOD CLOT. SOCIAL HISTORY GENERAL: TOBACCO USE ARE YOU A:NONSMOKER HIV / HEP-C SCREENING HIV TEST OFFERED TO PATIENT:YES DATE OFFERED:01/17/2018 TEST ACCEPTED:NO HEP-C TEST OFFERED TO PATIENT:YES DATE OFFERED:01/17/2018 REASON:PATIENT DECLINED TEST ACCEPTED:NO REASON:PATIENT DECLINED BROCHURE PROVIDED TO PATIENTNO LANGUAGE LANGUAGES SPOKEN:GERMAN DOMESTIC VIOLENCE DO YOU FEEL SAFE IN YOUR ENVIRONMENT?YES RECREATIONAL DRUG USE DRUG USE?NO LEARNING BARRIERS / SPECIAL NEEDS CHANGE FROM LAST VISIT?NO BARRIERS TO LEARNING?NO HEARING IMPAIRED?NO VISION IMPAIRED?YES COGNITIVELY IMPAIRED?NO :CORRECTIVE LENSES READINESS TO LEARN?YES LEARNING PREFERENCES?YES :BOOKLETS, HANDOUTS LEARNING CAPABILITIES PRESENT?YES EMOTIONAL BARRIERS?NO SPECIAL DEVICES?YES :CANE, WHEELCHAIR LUNG CANCER SCREENING SMOKING STATUS:NON SMOKER PAIN CLINIC PFS, CLERGY, PUBLIC HEALTH REFERRALS PFS REFERRAL NEEDED?NO CLERGY REFERRAL NEEDED?NO PUBLIC HEALTH REFERRAL NEEDED?NO WAS THE PROVIDER NOTIFIED OF ANY PERTINENT INFO?YES N/A HAS THE PATIENT BEEN EDUCATED REGARDING HIS/HER PLAN OF CARE?YES HAS THE PATIENT BEEN EDUCATED REGARDING PAIN, THE RISK FOR PAIN, THE IMPORTANCE OF EFFECTIVE PAIN MANAGEMENT, AND THE PAIN ASSESSMENT PROCESS?YES LATEX QUESTIONNAIRE LATEX ALLERGY : HAVE YOU EVER DEVELOPED ANY TYPE OF REACTION AFTER HANDLING LATEX PRODUCTS SUCH RUBBER GLOVES, CONDOMS, DIAPHRAGMS, BALLOONS, SOCKS, OR UNDERWEAR?NO LATEX ALLERGY : HAVE YOU EVER DEVELOPED ANY TYPE OF REACTION DURING OR AFTER DENTAL APPOINTMENT, VAGINAL/RECTAL EXAMINATION, SURGICAL PROCEDURE, OR ANY OTHER EXPOSURE?NO DATE ASKED : 10/24/2019 LATEX RISK : HAVE YOU EVER HAD ANY DIFFICULTY BREATHING OR HIVES AFTER EATING OR HANDLING ANY FRUITS, OR VEGETABLES; SUCH KIWI, BANANAS, STONE FRUITS, OR CHESTNUTSNO LATEX RISK : DO YOU HAVE A PREVIOUS PERSONAL HISTORY OF MORE THAN NINE SURGERIES, SPINA BIFIDA, OR REPEATED CATHERIZATIONS? NO LATEX RISK : ARE YOU FREQUENTLY EXPOSED TO LATEX PRODUCTS IN YOUR OCCUPATION?NO CAFFEINE CAFFEINE USE?NO ADVANCE DIRECTIVE ADVANCE DIRECTIVE DISCUSSED WITH PATIENT:YES HCP - SHE JI () [facility] [id number] MORMONISM ALCOHOL SCREENING DID YOU HAVE A DRINK CONTAINING ALCOHOL IN THE PAST YEAR?NO POINTS0 INTERPRETATIONNEGATIVE REVIEWED 04/15/18 1430 LAS REVIEWED WITH PATIENT 09/27/18 1512 JS REVIEWED WITH PATIENT 08/08/19 1638 BVREVIEWED WITH PATIENT 09/25/19 1025 NLJPRE PROCEDURE TELEPHONE CALL COMPLETED 09/25/19 1033 NLREVIEWED WITH PATIENT 10-24-2019 DS. HOSPITALIZATION/MAJOR DIAGNOSTIC PROCEDURE SURGERIES HYPERTENSION HEAD INJURY 03/1986 REVIEW OF SYSTEMS REVIEWED BY: PROVIDER: BLANE ACKERMAN . CONSTITUTIONAL: ANY CHANGE IN YOUR MEDICAL CONDITION? NO . CHILLS NO . FEVER NO . INFECTION: DO YOU HAVE NEW INFECTIONS? NO . DO YOU HAVE HISTORY OF MRSA? NO . MUSCULOSKELETAL: ANY NEW PATTERNS OF PAIN OR NUMBNESS? YES INCREASED DISCOMFORT IN BOTH FEET "FEELS LIKE SWOLLEN" BUT THEY ARE NOT . PT RECENTLY SAW HELPER METAL HANGING WHO STATES THAT INCREASED PAIN IS NOT FROM DIABETIC NEUROPATHY . GASTROENTEROLOGY: ANY NEW CHANGE IN BOWEL CONTROL? NO . GENITOURINARY: ANY NEW CHANGE IN BLADDER CONTROL? NO . IS THERE A CHANCE YOU COULD BE ? NO . HEMATOLOGY/LYMPH: DO YOU TAKE ANY BLOOD THINNERS? (FOR EXAMPLE- COUMADIN, PLAVIX, AGGRENOX, PLATEL, PRADAXA, OR XARELTO) NO . WHEN WAS YOUR LAST DOSE? DATE: TIME: . NEUROLOGY: HAVE YOU FALLEN IN THE PAST 12 MONTHS? PT STATES HE "FALLS OFTEN" BUT NO URGENT CARE VISITS, YES . ANY NEW EXTREMITY NUMBNESS OR WEAKNESS? NO . CARDIOLOGY: DO YOU HAVE A PACEMAKER OR DEFIBRILLATOR? NO . RESPIRATORY: HAVE YOU BEEN SICK IN THE PAST WEEK? NO . FEVER NO . FLU LIKE SYMPTOMS? NO . COUGH NO . INTEGUMENTARY: DO YOU HAVE ANY RASHES OR OPEN SORES? NO . ALLERGIC/IMMUNO: ARE YOU ALLERGIC TO IV DYE? NO . ANY NEW ALLERGIES? NO . PSYCHIATRIC: DO YOU HAVE THOUGHTS OF HURTING YOURSELF OR SOMEONE ELSE? NO . ARE YOU ABUSED, NEGLECTED, OR IN AN UNSAFE ENVIRONMENT? NO . ENDOCRINOLOGY: ARE YOU DIABETIC? NO . OTHER: DO YOU NEED ANY PRESCRIPTIONS? YES NEED ALL, YES . IF YES, PLEASE LIST: ____ . ANY NEW PROBLEMS WITH YOUR MEDICATIONS? NO . WHEN DID YOU LAST EAT? ____ . WHEN DID YOU LAST DRINK? ____ . WHAT DID YOU LAST DRINK? ____ . NAME OF PERSON DRIVING YOU HOME? ____ . DO YOU HAVE ANY OTHER QUESTIONS OR CONCERNS PT WOULD LIKE TO SCHEDULE BOTOX . VITAL SIGNS WT 360 LBS, HT 75 IN, BMI 44.99 INDEX, BP 175/81 MM HG, HR 89 /MIN, RR 16 /MIN, TEMP 97.2 F, OXYGEN SAT % 95%, NA INITIALS AW 0915. EXAMINATION GENERAL EXAMINATION: LUNGS:LUNG SOUNDS ARE CLEAR . HEART:HEART RATE REGULAR . MUSCULOSKELETAL:*, TRIGGER POINTS:, ELICITED WITH PALPATION OVER CERVICAL SPINOUS PROCESSES AND ACROSS THE TRAPEZIUS MUSCLES BILATERALLY. RESTRICTION OF ROM IS NOTED. MUSCLE SPASM IS NOTED ACROSS TRAPEZIUS BILAT.. LUMBAR:MUSCLE STRENGTH TESTING 3/5 BILATERAL LOWER EXTREMITIES. PALPATION: POSITIVE FOR PAIN OVER L/S SPINE. POSITIVE FOR PAIN OVER L/S PARSPINALS. MULTIPLE TRIGGER POINTS ELICITED NECK AND TRAPEZIUS BILAT. . NEUROLOGIC EXAM:CN'S II-XII GROSSLY INTACT.WALKS WITH WIDE BASED ANTALGIC GAIT WITH ASSIST OF CANE AND .VERY UNSTEADY POSITIVE ROMBERG. DIAGNOSTIC: . ASSESSMENTS CHRONIC MIGRAINE WITHOUT AURA WITHOUT STATUS MIGRAINOSUS, NOT INTRACTABLE - G43.709 (PRIMARY) TREATMENT CHRONIC MIGRAINE WITHOUT AURA WITHOUT STATUS MIGRAINOSUS, NOT INTRACTABLE REFILL COLACE CAPSULE, 100 MG, 1 CAPSULE NEEDED, ORALLY, ONCE A DAY, 30 DAYS, 30 CAPSULE, REFILLS 5 REFILL CYCLOBENZAPRINE HCL TABLET, 10 MG, 1 TABLET NEEDED, ORALLY, Q6-8H PRN FOR SEVERE MUSCLE SPASM PAIN #45 TAB. SHOULD LAST 30 DAYS, 30 DAYS, 45, REFILLS 5 REFILL TOPAMAX TABLET, 100 MG, 1 TABLET, ORALLY FOR PAIN, TWICE A DAY, 30 DAYS, 60 TABLET, REFILLS 5 REFILL KETOROLAC TROMETHAMINE TABLET, 10 MG, 1 TABLET WITH FOOD OR MILK NEEDED, ORALLY, Q6H PRN FOR SEVERE PAIN MDD4, 30 DAYS, 20, REFILLS 5, NOTES: NEEDED REFILL PERCOCET TABLET, 7.5-325 MG, 1, ORALLY, Q6H PRN MDD4, 30 DAYS, 120, REFILLS 0 REFILL AMITRIPTYLINE HCL TABLET, 50 MG, 3, ORALLY FOR PAIN, ONCE A DAY, 30 DAYS, 90, REFILLS 5 NOTES: ISTOP REGISTRY REVIEWED AND DEMONSTRATES COMPLLIANCE. BRINGS IN MEDICATIONS WHICH IS APPROPRIATE FOR WHAT WAS DISPENSED. RECENT URINE TOXICOLOGY REVIEWED. NO UNAUTHORIZED MEDICATIONS. NO ILLICIT SUBSTANCES AND PRESCRIBED MEDICATIONS WERE PRESENT.RISKS OF NARCOTIC/OPIOD MEDICATIONS INCLUDES BUT IS NOT LIMITED TO RISK OF DEPENDANCE/DEVELOPMENT OF ADDICTION, MOOD DISTURBANCE AND DEPRESSION, OSTEOPOROSIS, HORMONAL AND LABIDAL CHANGES, RESPIRATORY DEPRESSION AND . PATIENT IS ADVISED NOT TO DRIVE OR DRINK ALCOHOL WHILE ON THESE MEDICATIONS, W/C REQUEST BOTOX. PROCEDURE CODES [id number] ESTABILISHED PATIENT [facility] CHAR[facility] DISPOSITION & COMMUNICATION FOLLOW UP POST (REASON: W/C REQUEST BOTOX) ELECTRONICALLY SIGNED BY MKEA BAPTISTE ON 12/16/2019 AT 10:15 AM EST DISCLAIMER : THIS IS A VISIT SUMMARY EXTRACTED FROM THE [employer] CHART. IT IS NOT A COPY OF THE [employer] PROGRESS NOTE. NAHEED
== END ==
LOC: M PAIN 09:00
PROVIDERS: ATTEND Nurse Practitioner Family
DX: G43.709 Chronic migraine without aura, not intractable, without status migrainosus (principal); G89.29 Other chronic pain; E11.9 Type 2 diabetes mellitus without complications; I10 Essential (primary) hypertension; E03.9 Hypothyroidism, unspecified; Z88.1 Allergy status to other antibiotic agents; Z88.5 Allergy status to narcotic agent; Z88.8 Allergy status to other drugs, medicaments and biological substances; Z91.81 History of falling; E66.01 Morbid (severe) obesity due to excess calories; Z68.41 Body mass index [BMI] 40.0-44.9, adult; Z79.84 Long term (current) use of oral hypoglycemic drugs; Z79.891 Long term (current) use of opiate analgesic; Z79.899 Other long term (current) drug therapy

== ENCOUNTER 2019-12-30 11:29 | Outpatient (CLI) | payer OTHER ==
[2019-12-30] MEDS ORDERED: propofoL 200 MG/20 ML VIAL ONE (11:30)
[2019-12-30 13:56] VITALS: BP 152/77
--- NOTE | 2019-12-30 14:59 | REP ---
MRI LEFT KNEE: TECHNIQUE: Axial proton density fat saturation, sagittal proton density T2 STIR, water excitation, coronal proton density, proton density fat saturation. Comparison is 05/30/[facility]. Once again there is extensive complex tear of the anterior and posterior horns of the medial meniscus with truncation, essentially unchanged compared to the prior study. No tear is seen of the lateral meniscus. The cruciate and collateral ligaments are intact. In the patellar tendon there is ill-defined high signal suggesting tendinitis. There appears to be a fully thickness partial tear of the lateral patellar retinaculum. Medial patellar retinaculum is intact. There is moderate chondromalacia of the medial patellar facet. There is mild chondromalacia of the lateral femoral condyle in the tibial plateau. There is moderately severe chondromalacia of the medial femoral condyle and tibial plateau appearing similar to the prior study. There is no significant marrow edema or occult fracture. There is a moderate joint effusion with mild fluid extending into the medial popliteal fossa. There are two adjacent cartilaginous or calcific bodies in the posterior femoral notch superior to the posterior cruciate ligament having a diameter of 5 mm. IMPRESSION: Extensive complex tear with truncation of the entire medial meniscus, appears similar to the prior study of 05/30/2017. Increased signal in the patellar tendon on T2-weighted images suggesting tendinitis. There is a full thickness partial tear of the lateral patellar retinaculum. Diffuse chondromalacia as discussed above most significantly in the medial joint compartment, as on prior study. No occult fracture. Moderate joint effusion. There appear to be two adjacent cartilaginous or calcific bodies in the posterior femoral notch above the posterior cruciate ligament, maximum diameter 5 mm. Electronically Signed by Sim Zee MD 12/31/2019 09:11 A
== END 2019-12-30 14:11 | disposition home or self-care (01) ==
LOC: M RAD 11:29
PROVIDERS: ATTEND Physician Assistant
DX: M17.12 Unilateral primary osteoarthritis, left knee (principal)

== ENCOUNTER → 2020-01-07 | Outpatient (CLI) | payer OTHER ==
[~2020-01-07] MED LIST changes: +BOTOX THERAPEUTIC 100 UNIT VIAL (J0585 PER 1 UNIT) IM ONE; +diazePAM 5 MG TAB As Ordered ONE; +diphenhydrAMINE 25MG CAP As Ordered ONE; +oxyCODONE 5MG TAB As Ordered ONE
--- NOTE | 2020-01-21 00:46 | ECWPNPC ---
PATIENT NAME: ALEX JI : 1965 GENDER: MALE VISIT DATE: 01/07/2020 DISCHARGE DATE: 01/07/20 1257 VISIT LOCKED DATE TIME: PHYSICIAN: JAVON LEONARDO MD RESOURCE: JAVON LEONARDO MD REASON FOR APPOINTMENT 1. BOTOX W/C, 1 SESSION ONLY HISTORY OF PRESENT ILLNESS HISTORY OF PRESENT ILLNESS: PAIN THE PATIENT DESCRIBES THE PAIN... FALL RISK SCREENING: SCREENING :NO FALLS REPORTED IN THE LAST YEAR CURRENT MEDICATIONS TAKING NARCAN 4 MG/0.1ML LIQUID DIRECTED NASALLY FOR OPIOID OVERDOSE, NOTES: NEVER USED TAKING PINDOLOL 5 MG TABLET 1 TABLET ORALLY QID, NOTES: 01-07-20599 TAKING POTASSIUM CHLORIDE 10 MEQ (PRT) TABLET EXTENDED RELEASE 1 TABLET ORALLY TWICE DAILY, NOTES: 01-07-20599 TAKING METFORMIN HCL ER 750 MG TABLET EXTENDED RELEASE 24 HOUR ORALLY TWICE A DAY, NOTES: 01-06-203299 TAKING ATENOLOL 50 MG TABLET 1 TABLET ORALLY BID, NOTES: 01-07-20599 TAKING LEVOTHYROXINE SODIUM 50 MCG TABLET 1 TABLET ORALLY ONCE A DAY, NOTES: 01-06-30599 TAKING TRIAMTERENE-HCTZ 37.5-25 MG TABLET 1 TABLET IN THE MORNING ORALLY ONCE A DAY, NOTES: 01-07-20599 TAKING FLONASE ALLERGY RELIEF 50 MCG/ACT SUSPENSION 1 SPRAY IN EACH NOSTRIL NASALLY ONCE A DAY, NOTES: JUST NEEDED TAKING COLACE 100 MG CAPSULE 1 CAPSULE NEEDED ORALLY ONCE A DAY, NOTES: 01-04-20899 TAKING CYCLOBENZAPRINE HCL 10 MG TABLET 1 TABLET NEEDED ORALLY Q6-8H PRN FOR SEVERE MUSCLE SPASM PAIN #45 TAB. SHOULD LAST 30 DAYS, NOTES: NOT LATELY TAKING TOPAMAX 100 MG TABLET 1 TABLET ORALLY FOR PAIN TWICE A DAY, NOTES: 01-07-20699 TAKING KETOROLAC TROMETHAMINE 10 MG TABLET 1 TABLET WITH FOOD OR MILK NEEDED ORALLY Q6H PRN FOR SEVERE PAIN MDD4, NOTES: 01-06-20899 TAKING PERCOCET 7.5-325 MG TABLET 1 ORALLY Q6H PRN MDD4, NOTES: 01-07-20 TAKING AMITRIPTYLINE HCL 50 MG TABLET 3 ORALLY FOR PAIN ONCE A DAY, NOTES: 3-24-20 2100 NOT-TAKING FENTANYL 12 MCG/HR PATCH 72 HOUR 1 PATCH TO SKIN TRANSDERMAL Q72 HR=MDD, NOTES: NOT TAKING MEDICATION LIST REVIEWED AND RECONCILED WITH THE PATIENT PAST MEDICAL HISTORY DM, HTN, CHRONIC PAIN , THYROID DISEASE, GERD, MIGRANES LEFT KNEE PAIN RIGHT SHOULDER LABRIUM TEAR ALLERGIES AZITHROMYCIN: LIP SWELLING - ALLERGY SUMATRIPTAN: FACIAL SWELLING - ALLERGY PROPOXYPHENE: PRICKLY FEELING, RASH, SOB - ALLERGY SURGICAL HISTORY FUSION C3-C4 1994 3 SURGURIES TO LEFT KNEE 1993 FAMILY HISTORY FATHER: 51 YRS, DIAGNOSED WITH DIABETES MOTHER: 50 YRS, OTHER MALIGNANT NEOPLASM OF UNSPECIFIED SITE 3 BROTHER(S) , 2 SISTER(S) . 1 SON(S) - HEALTHY. ON BROTHER R\/T PANCREATIC CANCER, ONE SISTER WITH MS \NBROTHER - COMPLICATIONS FROM AGENT ORANGE\NBROTHER - BLOOD CLOT. SOCIAL HISTORY GENERAL: TOBACCO USE ARE YOU A:NONSMOKER HIV / HEP-C SCREENING HIV TEST OFFERED TO PATIENT:YES DATE OFFERED:01/17/2018 TEST ACCEPTED:NO HEP-C TEST OFFERED TO PATIENT:YES DATE OFFERED:01/17/2018 REASON:PATIENT DECLINED TEST ACCEPTED:NO REASON:PATIENT DECLINED BROCHURE PROVIDED TO PATIENTNO LANGUAGE LANGUAGES SPOKEN:CROATIAN DOMESTIC VIOLENCE DO YOU FEEL SAFE IN YOUR ENVIRONMENT?YES RECREATIONAL DRUG USE DRUG USE?NO LEARNING BARRIERS / SPECIAL NEEDS CHANGE FROM LAST VISIT?NO BARRIERS TO LEARNING?NO HEARING IMPAIRED?NO VISION IMPAIRED?YES COGNITIVELY IMPAIRED?NO :CORRECTIVE LENSES READINESS TO LEARN?YES LEARNING PREFERENCES?YES :BOOKLETS, HANDOUTS LEARNING CAPABILITIES PRESENT?YES EMOTIONAL BARRIERS?NO SPECIAL DEVICES?YES :CANE, WHEELCHAIR LUNG CANCER SCREENING SMOKING STATUS:NON SMOKER PAIN CLINIC PFS, CLERGY, PUBLIC HEALTH REFERRALS PFS REFERRAL NEEDED?NO CLERGY REFERRAL NEEDED?NO PUBLIC HEALTH REFERRAL NEEDED?NO WAS THE PROVIDER NOTIFIED OF ANY PERTINENT INFO?YES N/A HAS THE PATIENT BEEN EDUCATED REGARDING HIS/HER PLAN OF CARE?YES HAS THE PATIENT BEEN EDUCATED REGARDING PAIN, THE RISK FOR PAIN, THE IMPORTANCE OF EFFECTIVE PAIN MANAGEMENT, AND THE PAIN ASSESSMENT PROCESS?YES LATEX QUESTIONNAIRE LATEX ALLERGY : HAVE YOU EVER DEVELOPED ANY TYPE OF REACTION AFTER HANDLING LATEX PRODUCTS SUCH RUBBER GLOVES, CONDOMS, DIAPHRAGMS, BALLOONS, SOCKS, OR UNDERWEAR?NO LATEX ALLERGY : HAVE YOU EVER DEVELOPED ANY TYPE OF REACTION DURING OR AFTER DENTAL APPOINTMENT, VAGINAL/RECTAL EXAMINATION, SURGICAL PROCEDURE, OR ANY OTHER EXPOSURE?NO DATE ASKED : 10/24/2019 LATEX RISK : HAVE YOU EVER HAD ANY DIFFICULTY BREATHING OR HIVES AFTER EATING OR HANDLING ANY FRUITS, OR VEGETABLES; SUCH KIWI, BANANAS, STONE FRUITS, OR CHESTNUTSNO LATEX RISK : DO YOU HAVE A PREVIOUS PERSONAL HISTORY OF MORE THAN NINE SURGERIES, SPINA BIFIDA, OR REPEATED CATHERIZATIONS? NO LATEX RISK : ARE YOU FREQUENTLY EXPOSED TO LATEX PRODUCTS IN YOUR OCCUPATION?NO CAFFEINE CAFFEINE USE?NO ADVANCE DIRECTIVE ADVANCE DIRECTIVE DISCUSSED WITH PATIENT:YES HCP - SHE JI () MORMON [id number] UATSDIN ALCOHOL SCREENING DID YOU HAVE A DRINK CONTAINING ALCOHOL IN THE PAST YEAR?NO POINTS0 INTERPRETATIONNEGATIVE REVIEWED 04/15/18 1430 LAS REVIEWED WITH PATIENT 09/27/18 1512 JS REVIEWED WITH PATIENT 08/08/19 1638 BVREVIEWED WITH PATIENT 09/25/19 1025 NLJPRE PROCEDURE TELEPHONE CALL COMPLETED 09/25/19 1033 NLREVIEWED WITH PATIENT 10-24-2019 DS. HOSPITALIZATION/MAJOR DIAGNOSTIC PROCEDURE SURGERIES HYPERTENSION HEAD INJURY 03/1986 REVIEW OF SYSTEMS REVIEWED BY: PROVIDER: . CONSTITUTIONAL: ANY CHANGE IN YOUR MEDICAL CONDITION? NO . CHILLS NO . FEVER NO . INFECTION: DO YOU HAVE NEW INFECTIONS? NO . DO YOU HAVE HISTORY OF MRSA? NO . MUSCULOSKELETAL: ANY NEW PATTERNS OF PAIN OR NUMBNESS? NO . GASTROENTEROLOGY: ANY NEW CHANGE IN BOWEL CONTROL? NO . GENITOURINARY: ANY NEW CHANGE IN BLADDER CONTROL? NO . IS THERE A CHANCE YOU COULD BE ? NO . HEMATOLOGY/LYMPH: DO YOU TAKE ANY BLOOD THINNERS? (FOR EXAMPLE- COUMADIN, PLAVIX, AGGRENOX, PLATEL, PRADAXA, OR XARELTO) NO . WHEN WAS YOUR LAST DOSE? DATE: TIME: . NEUROLOGY: HAVE YOU FALLEN IN THE PAST 12 MONTHS? NO . ANY NEW EXTREMITY NUMBNESS OR WEAKNESS? NO . CARDIOLOGY: DO YOU HAVE A PACEMAKER OR DEFIBRILLATOR? NO . RESPIRATORY: HAVE YOU BEEN SICK IN THE PAST WEEK? NO . FEVER NO . FLU LIKE SYMPTOMS? NO . COUGH NO . INTEGUMENTARY: DO YOU HAVE ANY RASHES OR OPEN SORES? NO . ALLERGIC/IMMUNO: ARE YOU ALLERGIC TO IV DYE? NO . ANY NEW ALLERGIES? NO . PSYCHIATRIC: DO YOU HAVE THOUGHTS OF HURTING YOURSELF OR SOMEONE ELSE? NO . ARE YOU ABUSED, NEGLECTED, OR IN AN UNSAFE ENVIRONMENT? NO . ENDOCRINOLOGY: ARE YOU DIABETIC? NO . OTHER: DO YOU NEED ANY PRESCRIPTIONS? NO . IF YES, PLEASE LIST: ____ . ANY NEW PROBLEMS WITH YOUR MEDICATIONS? NO . WHEN DID YOU LAST EAT? ____01-06-20 2100 . WHEN DID YOU LAST DRINK? ____01-06-30 0900 . WHAT DID YOU LAST DRINK? ____ . NAME OF PERSON DRIVING YOU HOME? ____WIFE- DILCIA . DO YOU HAVE ANY OTHER QUESTIONS OR CONCERNS ALL DAY EVERYDAY MIGRAINES . VITAL SIGNS WT 363 LBS, HT 75 IN, BMI 45.37 INDEX, BP 156/99 MM HG, HR 85 /MIN, RR 16 /MIN, TEMP 95.9 F, OXYGEN SAT % 95%, NA INITIALS AW 1039, REVIEWED BY: THEODORE. ASSESSMENTS CHRONIC MIGRAINE - G43.709 (PRIMARY) PROCEDURES PN BOTOX INJECTIONS FIRST INJECTION PRE PROCEDURE DIAGNOSIS CHRONIC MIGRAINE HEADACHES. POST PROCEDURE DIAGNOSIS CHRONIC MIGRAINE HEADACHES. PROCEDURE BOTOX INJECTION AT THE HEAD, NECK AND SHOULDERS SURGEON DR. JAVON LEONARDO UNDERWRITING CLERKS SUPERVISOR NONE ANESTHESIA NONE PRE PROCEDURE NOTE THE PATIENT WITH HISTORY OF CHRONIC MIGRAINE HEADACHES. I EVALUATED THE PATIENT AND REVIEWED THE CHART. I WENT OVER THE RISKS, ALTERNATIVES, AND BENEFITS ASSOCIATED WITH THIS PROCEDURE. THE PATIENT WOULD LIKE TO PROCEED AND GIVES CONSENT TO PERFORM THE PROCEDURE. THE PATIENT DENIES UNEXPLAINABLE WEIGHT LOSS, FEVER, CHILLS, OR NEW CHANGES IN URINARY OR BOWEL CONTROL. THE PATIENT EXPRESSED SUFFERING OF HEADACHES CONSTANTLY, EVERY DAY OF THE MONTH, UNABLE TO FUNCTION. IN THE PAST THIS PROCEDURE HAS ALLOW HIM TO BE FUNCTIONAL AND REDUCING HIS HEADACHES SIGNIFICANTLY. THE PATIENT HAS USED THE MEDICATIONS LISTED IN THE CHART TO TREAT THE HEADACHES FOR MANY MONTHS AND THE HEADACHES PERSIST DESCRIBED ABOVE. HE EXPRESSED THAT HE WANT TO PROCEED. DESCRIPTION OF PROCEDURE THE PATIENTS WAS BROUGHT TO THE PROCEDURE ROOM AND PLACED IN THE SUPINE POSITION. I CHECKED LATERALITY AND THE AREAS WHERE THE PROCEDURE WAS GOING TO BE PERFORMED WITH THE PATIENT AND THE SUPPORTING STAFF AT THE MOMENT OF THE TIME OUT IN THE PROCEDURE ROOM. FOR THE PROCEDURE I USED A SOLUTION OF 5 UNITS OF BOTOX PER EACH 0.1 ML OF THE SOLUTION. I USED A 30-GAUGE NEEDLE TO INJECT THE SOLUTION AT THE SELECTED LOCATIONS. I INJECTED FIRST THE RIGHT AND LEFT SAFETY INTERN MUSCLES. THE LANDMARK FOR BOTH INJECTIONS WAS APPROXIMATELY 1 CM ABOVE THE SUPERIOR MEDIAL EDGE OF THE EYEBROW. AFTER THESE TWO INJECTIONS, I INJECTED THE PROCERUS MUSCLE AT THE MIDLINE POINT BETWEEN THESE FIRST TWO INJECTIONS. THEN I PROCEEDED TO INJECT THE RIGHT AND LEFT FRONTALIS MUSCLE. TWO INJECTIONS WERE DONE IN EACH SIDE. THE FIRST INJECTION WAS DONE APPROXIMATELY 2 CM ABOVE THE FIRST INJECTION OF THE SAFETY INTERN. THE SECOND INJECTION WAS DONE APPROXIMATELY 1.5 CM LATERAL TO THIS FIST INJECTION OF THE FRONTALIS OF EACH SIDE. AFTER THE INJECTIONS OVER THE FOREHEAD WERE DONE, THE PATIENT'S HEAD WAS TURNED TO THE LEFT SIDE AND WE STARTED TO WORK WITH THE RIGHT TEMPORALIS MUSCLE. FIRST INJECTION WAS DONE IN A VERTICAL LINE OF THE TRAGUS APPROXIMATELY 3 CM ABOVE THE TRAGUS. THE SECOND INJECTION WAS DONE APPROXIMATELY 2 CM ABOVE THE FIRST INJECTION. THE THIRD INJECTION WAS DONE APPROXIMATELY 1 CM FRONT SARGENT FROM THIS VERTICAL LINE CREATED AT THE LEVEL OF THE TRAGUS, FPC BETWEEN THESE TWO INJECTIONS. THE FOURTH INJECTION WAS DONE APPROXIMATELY 1.5 CM BACK FROM THE SECOND INJECTION TO THE TEMPORALIS IN LINE TO THE MIDPORTION OF THE EAR. THEN, WE PROCEEDED TO INJECT THE LEFT TEMPORALIS MUSCLE. WE CLEANED THE AREA WITH ALCOHOL AND PROCEEDED TO PERFORM THE SAME FOR INJECTIONS DESCRIBED ABOVE BUT IN THE LEFT TEMPORALIS MUSCLE USING THE SAME LANDMARKS. AFTER THESE INJECTIONS WERE DONE, THE PATIENT WAS SEATED. FIRST, WE STARTED TO INJECT THE LEFT AND RIGHT OCCIPITALIS MUSCLE. I INJECTED AT THE FOLLOWING PLACES IN THE RIGHT AND LEFT MUSCLE. THE FIRST INJECTION WAS DONE AT THE MIDPOINT POSITION BETWEEN THE MASTOID PROCESS AND THE INION OF THE OCCIPITAL PROTUBERANCE. THE SECOND INJECTION WAS DONE APPROXIMATELY 1.5 CM SUPERIOR AND LATERAL OF THIS POINT. THE THIRD INJECTION WAS DONE APPROXIMATELY 1.5 CM SUPERIOR AND MEDIAL TO THIS FIRST INJECTION. THEN, I PROCEEDED TO INJECT THE RIGHT AND LEFT PARASPINAL MUSCLES. LANDMARK OF THE INJECTION WERE APPROXIMATELY: FIRST INJECTION 3 CM BELOW THE INION AND 1 CM LATERAL TO THE MIDLINE AND SECOND INJECTION AT EACH SIDE WAS DONE APPROXIMATELY 1.5 CM SUPERIOR AND LATERAL OF THE FIRST INJECTION. THE LAST GROUP OF INJECTIONS WAS DONE OVER THE RIGHT AND LEFT TRAPEZIUS MUSCLE OVER THE SHOULDERS AREA. THE FIRST INJECTION WAS DONE AT THE MIDPOINT BETWEEN THE INFLECTION POINT BETWEEN THE NECK AND SHOULDER AND THE ACROMION. THE SECOND AND THIRD INJECTIONS WERE DONE APPROXIMATELY 2.5 CM LATERAL AND MEDIAL FROM THIS FIRST INJECTION. SAME TARGETS WERE USED IN THE RIGHT AND LEFT SIDE. FINALLY I INJECT 2.5 UNITS OF BOTOX AT 4 POINTS IN THE SUPERIOR CRANIAL AREA OF THE PATIENT, WHICH HAS HELPED HIM IN THE PAST. IN TOTAL, I INJECTED 165 UNITS OF BOTOX. PROCEDURE WAS DONE WITHOUT EVIDENCE OF PARESTHESIA OR ANY COMPLICATIONS. THE PATIENT TOLERATED THE PROCEDURE VERY WELL. THE PATIENT WAS SENT TO THE RECOVERY ROOM FOR OBSERVATIONS. INJECTIONS WERE DONE AFTER CLEANING WITH ALCOHOL, USING ASEPTIC TECHNIQUES POST PROCEDURE NOTE THE PROCEDURE DONE WAS DISCUSSED WITH THE PATIENT. THE PATIENT WILL BE SEEN IN A FOLLOW UP IN THE NEXT FEW WEEKS. I AM LOOKING FOR LONG LASTING PAIN RELIEF FOR THE PATIENT WITH THIS INJECTION. INSTRUCTIONS WERE GIVEN, QUESTIONS WERE ANSWERED, AND THE PATIENT EXPRESSED UNDERSTANDING AND AGREES WITH THE PLAN. I, ROMAN DANIELLE, DOCUMENTED THE ABOVE INFORMATION ACTING A SCRIBE FOR DR. LEONARDO. I HAVE REVIEWED THE ABOVE DOCUMENT, WRITTEN BY ROMAN DANIELLE SCRIBAlanna AND I VERIFY THAT IT IS ACCURATE. PN WORKMANS' COMP OPINION IN YOUR OPINION, WAS THE INCIDENT THAT THE PATIENT DESCRIBED THE COMPETENT MEDICAL CAUSE OF THIS INJURY/ILLNESS? YES ARE THE PATIENT'S COMPLAINTS CONSISTENT WITH HIS/HER HISTORY OF THE INJURY/ILLNESS? YES IS THE PATIENT'S HISTORY OF THE INJURY/ILLNESS CONSISTENT WITH YOUR OBJECTIVE FINDING? YES WHAT IS THE PERCENTAGE OF TEMPORARY IMPAIRMENT? TOTAL = 100% IS THE PATIENT WORKING? NO DOCTOR ON SITE: JAVON VALDEZ MD PROCEDURE CODES 28791 CHEMOD[facility]ERV [facility] MIGRAINE DISPOSITION & COMMUNICATION FOLLOW UP 3 WEEKS ELECTRONICALLY SIGNED BY JAVON LEONARDO MD, MD ON 01/20/2020 AT 04:36 PM EDT DISCLAIMER : THIS IS A VISIT SUMMARY EXTRACTED FROM THE [employer] CHART. IT IS NOT A COPY OF THE [employer] PROGRESS NOTE. NAHEED
== END ==
LOC: M PAIN 10:45
PROVIDERS: ATTEND Anesthesiology
DX: G43.709 Chronic migraine without aura, not intractable, without status migrainosus (principal); E11.9 Type 2 diabetes mellitus without complications; I10 Essential (primary) hypertension; E03.9 Hypothyroidism, unspecified; Z88.1 Allergy status to other antibiotic agents; Z88.5 Allergy status to narcotic agent; Z88.8 Allergy status to other drugs, medicaments and biological substances; E66.01 Morbid (severe) obesity due to excess calories; Z68.42 Body mass index [BMI] 45.0-49.9, adult; Z79.84 Long term (current) use of oral hypoglycemic drugs; Z79.891 Long term (current) use of opiate analgesic; Z79.899 Other long term (current) drug therapy

== ENCOUNTER → 2020-01-22 | Outpatient (CLI) | payer OTHER ==
[~2020-01-22] MED LIST changes: -BOTOX THERAPEUTIC 100 UNIT VIAL (J0585 PER 1 UNIT) IM ONE; -diazePAM 5 MG TAB As Ordered ONE; -diphenhydrAMINE 25MG CAP As Ordered ONE; -oxyCODONE 5MG TAB As Ordered ONE
--- NOTE | 2020-01-23 00:42 | ECWPNPC ---
PATIENT NAME: ALEX JI : 1965 GENDER: MALE VISIT DATE: 01/22/2020 DISCHARGE DATE: 01/22/20 1120 VISIT LOCKED DATE TIME: PHYSICIAN: BLANE EUGENE RESOURCE: BLANE EUGENE REASON FOR APPOINTMENT 1. W/C POST BOTOX HISTORY OF PRESENT ILLNESS HISTORY OF PRESENT ILLNESS: HERE FOR POST PROCEDURE FOLLOW-UP. HAD BOTOX ON 01/07/2020. REPORTING MARKED REDUCTION IN FREQUENCY OF MIGRAINE HEADACHE. STATES HE'S ONLY HAD ONE HEADACHE SINCE PROCEDURE. DISCUSSED REPEATING BOTOX IN 3 MONTHS IN ACCORDANCE WITH CLINICAL GUIDELINES FOR THE TREATMENT OF MIGRAINE HEADACHE. CHIEF AREA OF PAIN IS LOW BACK WITH RADIATION INTO LEGS BILATERALLY, LEFT GREATER THAN RIGHT. HAS RESPONDED WELL TO LUMBAR EPIDURAL STEROID INJECTIONS IN THE PAST. PAIN IS AGGRAVATED BY PROLONGED STANDING. THIS IS A WORK RELATED INJURY WITH DATE OF INJURY 1985. PAIN THE PATIENT DESCRIBES THE PAIN... FALL RISK SCREENING: SCREENING :NO FALLS REPORTED IN THE LAST YEAR CURRENT MEDICATIONS TAKING NARCAN 4 MG/0.1ML LIQUID DIRECTED NASALLY FOR OPIOID OVERDOSE TAKING PINDOLOL 5 MG TABLET 1 TABLET ORALLY QID TAKING POTASSIUM CHLORIDE 10 MEQ (PRT) TABLET EXTENDED RELEASE 1 TABLET ORALLY TWICE DAILY TAKING METFORMIN HCL ER 750 MG TABLET EXTENDED RELEASE 24 HOUR ORALLY TWICE A DAY TAKING ATENOLOL 50 MG TABLET 1 TABLET ORALLY BID TAKING LEVOTHYROXINE SODIUM 50 MCG TABLET 1 TABLET ORALLY ONCE A DAY TAKING TRIAMTERENE-HCTZ 37.5-25 MG TABLET 1 TABLET IN THE MORNING ORALLY ONCE A DAY TAKING FLONASE ALLERGY RELIEF 50 MCG/ACT SUSPENSION 1 SPRAY IN EACH NOSTRIL NASALLY ONCE A DAY, NOTES: JUST NEEDED TAKING COLACE 100 MG CAPSULE 1 CAPSULE NEEDED ORALLY ONCE A DAY TAKING CYCLOBENZAPRINE HCL 10 MG TABLET 1 TABLET NEEDED ORALLY Q6-8H PRN FOR SEVERE MUSCLE SPASM PAIN #45 TAB. SHOULD LAST 30 DAYS TAKING TOPAMAX 100 MG TABLET 1 TABLET ORALLY FOR PAIN TWICE A DAY TAKING KETOROLAC TROMETHAMINE 10 MG TABLET 1 TABLET WITH FOOD OR MILK NEEDED ORALLY Q6H PRN FOR SEVERE PAIN MDD4 TAKING PERCOCET 7.5-325 MG TABLET 1 ORALLY Q6H PRN MDD4 TAKING AMITRIPTYLINE HCL 50 MG TABLET 3 ORALLY FOR PAIN ONCE A DAY TAKING MAY HAVE - - MEDICAL MARIJUANA DIRECTED NOT-TAKING FENTANYL 12 MCG/HR PATCH 72 HOUR 1 PATCH TO SKIN TRANSDERMAL Q72 HR=MDD, NOTES: NOT TAKING MEDICATION LIST REVIEWED AND RECONCILED WITH THE PATIENT PAST MEDICAL HISTORY DM, HTN, CHRONIC PAIN , THYROID DISEASE, GERD, MIGRANES LEFT KNEE PAIN RIGHT SHOULDER LABRIUM TEAR ALLERGIES AZITHROMYCIN: LIP SWELLING - ALLERGY SUMATRIPTAN: FACIAL SWELLING - ALLERGY PROPOXYPHENE: PRICKLY FEELING, RASH, SOB - ALLERGY SURGICAL HISTORY FUSION C3-C4 1994 3 SURGURIES TO LEFT KNEE 1993 FAMILY HISTORY FATHER: 51 YRS, DIAGNOSED WITH DIABETES MOTHER: 50 YRS, OTHER MALIGNANT NEOPLASM OF UNSPECIFIED SITE 3 BROTHER(S) , 2 SISTER(S) . 1 SON(S) - HEALTHY. ON BROTHER R\/T PANCREATIC CANCER, ONE SISTER WITH MS \NBROTHER - COMPLICATIONS FROM AGENT ORANGE\NBROTHER - BLOOD CLOT. SOCIAL HISTORY GENERAL: TOBACCO USE ARE YOU A:NONSMOKER HIV / HEP-C SCREENING HIV TEST OFFERED TO PATIENT:YES DATE OFFERED:01/17/2018 TEST ACCEPTED:NO HEP-C TEST OFFERED TO PATIENT:YES DATE OFFERED:01/17/2018 REASON:PATIENT DECLINED TEST ACCEPTED:NO REASON:PATIENT DECLINED BROCHURE PROVIDED TO PATIENTNO LANGUAGE LANGUAGES SPOKEN:NIGERIAN DOMESTIC VIOLENCE DO YOU FEEL SAFE IN YOUR ENVIRONMENT?YES NEW PATIENT PAIN DIARY TODAY'S VISITNOTES 01/22/2020 PATIENT DESCRIBES PAIN :ACHING, BURNING, HAVE IT ALL THE TIME FROM 0-10, WHAT LEVEL IS YOUR PAIN TODAY?7 RECREATIONAL DRUG USE DRUG USE?NO LEARNING BARRIERS / SPECIAL NEEDS CHANGE FROM LAST VISIT?NO BARRIERS TO LEARNING?NO HEARING IMPAIRED?NO VISION IMPAIRED?YES COGNITIVELY IMPAIRED?NO :CORRECTIVE LENSES READINESS TO LEARN?YES LEARNING PREFERENCES?YES :BOOKLETS, HANDOUTS LEARNING CAPABILITIES PRESENT?YES EMOTIONAL BARRIERS?NO SPECIAL DEVICES?YES :CANE, WHEELCHAIR LUNG CANCER SCREENING SMOKING STATUS:NON SMOKER PAIN CLINIC PFS, CLERGY, PUBLIC HEALTH REFERRALS PFS REFERRAL NEEDED?NO CLERGY REFERRAL NEEDED?NO PUBLIC HEALTH REFERRAL NEEDED?NO WAS THE PROVIDER NOTIFIED OF ANY PERTINENT INFO?YES N/A HAS THE PATIENT BEEN EDUCATED REGARDING HIS/HER PLAN OF CARE?YES HAS THE PATIENT BEEN EDUCATED REGARDING PAIN, THE RISK FOR PAIN, THE IMPORTANCE OF EFFECTIVE PAIN MANAGEMENT, AND THE PAIN ASSESSMENT PROCESS?YES LATEX QUESTIONNAIRE LATEX ALLERGY : HAVE YOU EVER DEVELOPED ANY TYPE OF REACTION AFTER HANDLING LATEX PRODUCTS SUCH RUBBER GLOVES, CONDOMS, DIAPHRAGMS, BALLOONS, SOCKS, OR UNDERWEAR?NO LATEX ALLERGY : HAVE YOU EVER DEVELOPED ANY TYPE OF REACTION DURING OR AFTER DENTAL APPOINTMENT, VAGINAL/RECTAL EXAMINATION, SURGICAL PROCEDURE, OR ANY OTHER EXPOSURE?NO LATEX RISK : HAVE YOU EVER HAD ANY DIFFICULTY BREATHING OR HIVES AFTER EATING OR HANDLING ANY FRUITS, OR VEGETABLES; SUCH KIWI, BANANAS, STONE FRUITS, OR CHESTNUTSNO LATEX RISK : DO YOU HAVE A PREVIOUS PERSONAL HISTORY OF MORE THAN NINE SURGERIES, SPINA BIFIDA, OR REPEATED CATHERIZATIONS? NO LATEX RISK : ARE YOU FREQUENTLY EXPOSED TO LATEX PRODUCTS IN YOUR OCCUPATION?NO DATE ASKED : 01/22/2020 CAFFEINE CAFFEINE USE?NO ADVANCE DIRECTIVE ADVANCE DIRECTIVE DISCUSSED WITH PATIENT:YES HCP - SHE JI () DRUZE [id number] PROTESTANT ALCOHOL SCREENING DID YOU HAVE A DRINK CONTAINING ALCOHOL IN THE PAST YEAR?NO POINTS0 INTERPRETATIONNEGATIVE HOSPITALIZATION/MAJOR DIAGNOSTIC PROCEDURE SURGERIES HYPERTENSION HEAD INJURY 03/1986 REVIEW OF SYSTEMS REVIEWED BY: PROVIDER: BLANE ACKERMAN . CONSTITUTIONAL: ANY CHANGE IN YOUR MEDICAL CONDITION? NO . CHILLS NO . FEVER NO . INFECTION: DO YOU HAVE NEW INFECTIONS? NO . DO YOU HAVE HISTORY OF MRSA? NO . MUSCULOSKELETAL: ANY NEW PATTERNS OF PAIN OR NUMBNESS? YES, PAIN WORSENING DOWN LEGS AND TO HIS FEET AND TOES . GASTROENTEROLOGY: ANY NEW CHANGE IN BOWEL CONTROL? NO . GENITOURINARY: ANY NEW CHANGE IN BLADDER CONTROL? NO . IS THERE A CHANCE YOU COULD BE ? NO . HEMATOLOGY/LYMPH: DO YOU TAKE ANY BLOOD THINNERS? (FOR EXAMPLE- COUMADIN, PLAVIX, AGGRENOX, PLATEL, PRADAXA, OR XARELTO) NO . WHEN WAS YOUR LAST DOSE? DATE: TIME: . NEUROLOGY: HAVE YOU FALLEN IN THE PAST 12 MONTHS? YES, STATES MULTIPLE FALLS, NO MAJOR INJURIES, NO ED VISITS . ANY NEW EXTREMITY NUMBNESS OR WEAKNESS? NO . CARDIOLOGY: DO YOU HAVE A PACEMAKER OR DEFIBRILLATOR? NO . RESPIRATORY: HAVE YOU BEEN SICK IN THE PAST WEEK? NO . FEVER NO . FLU LIKE SYMPTOMS? NO . COUGH NO . INTEGUMENTARY: DO YOU HAVE ANY RASHES OR OPEN SORES? NO . ALLERGIC/IMMUNO: ARE YOU ALLERGIC TO IV DYE? NO . ANY NEW ALLERGIES? NO . PSYCHIATRIC: DO YOU HAVE THOUGHTS OF HURTING YOURSELF OR SOMEONE ELSE? NO . ARE YOU ABUSED, NEGLECTED, OR IN AN UNSAFE ENVIRONMENT? NO . ENDOCRINOLOGY: ARE YOU DIABETIC? YES . OTHER: DO YOU NEED ANY PRESCRIPTIONS? NO . IF YES, PLEASE LIST: ____ . ANY NEW PROBLEMS WITH YOUR MEDICATIONS? NO . WHEN DID YOU LAST EAT? ____ . WHEN DID YOU LAST DRINK? ____ . WHAT DID YOU LAST DRINK? ____ . NAME OF PERSON DRIVING YOU HOME? ____ . DO YOU HAVE ANY OTHER QUESTIONS OR CONCERNS NO . VITAL SIGNS WT 363.2 LBS, HT 75 IN, BMI 45.39 INDEX, BP 198/91 MM HG, REPEAT BP 154/99 MM HG, HR 93 /MIN, RR 16 /MIN, TEMP 96.0 F, OXYGEN SAT % 96%, BLOOD GLUCOSE LEVEL 92, SAFE IN ENV? (Y/N) YES, NA INITIALS AW 0938, REVIEWED BY: RADHA TEMP 97.7. EXAMINATION GENERAL EXAMINATION: GENERAL AWAKE,ALERT ,PLEASANT . WALKS WITH ASSISTANCE OF CANE WITH SLOW ANTALGIC GAIT. PSYCH AFFECT NORMAL . LUNGS: LUNG OWENS ARE CLEAR TO AUSCULTATION BILATERALLY. GOOD MOVEMENT OF AIR . HEART: S1, S2 IN A REGULAR RATE AND RHYTHM. NO SIGNIFICANT MURMURS, RUBS OR GALLOPS NOTED . MUSCULOSKELETAL:WEAKNESS NOTED OVER LEFT LEG . LUMBAR: PALPATION: + FOR PAIN OVER L/S SPINE. + FOR PAIN OVER L/S PARASPINALS SLE: POSITIVE OVER LEFT LEG AT 45. DIAGNOSTIC TESTS REVIEWEDPROCEDURES CT L/S SPINE 2017. ASSESSMENTS CHRONIC MIGRAINE - G43.709 (PRIMARY) INTERVERTEBRAL DISC DISORDERS WITH RADICULOPATHY, LUMBOSACRAL REGION - M51.17 TREATMENT CHRONIC MIGRAINE CONTINUE CYCLOBENZAPRINE HCL TABLET, 10 MG, 1 TABLET NEEDED, ORALLY, Q6-8H PRN FOR SEVERE MUSCLE SPASM PAIN #45 TAB. SHOULD LAST 30 DAYS CONTINUE TOPAMAX TABLET, 100 MG, 1 TABLET, ORALLY FOR PAIN, TWICE A DAY CONTINUE COLACE CAPSULE, 100 MG, 1 CAPSULE NEEDED, ORALLY, ONCE A DAY CONTINUE KETOROLAC TROMETHAMINE TABLET, 10 MG, 1 TABLET WITH FOOD OR MILK NEEDED, ORALLY, Q6H PRN FOR SEVERE PAIN MDD4 CONTINUE PERCOCET TABLET, 7.5-325 MG, 1, ORALLY, Q6H PRN MDD4 CONTINUE AMITRIPTYLINE HCL TABLET, 50 MG, 3, ORALLY FOR PAIN, ONCE A DAY NOTES: WORKMEN'S COMP REQUEST BOTOX AFTER 04/08/2020 IN ACCORDANCE WITH TREATMENT GUIDELINES FOR CHRONIC MIGRAINE: BOTOX SHOULD BE ADMINISTERED EVERY 3 MONTHS FOR PREVENTATIVE BENEFITSL4-5 LESI-WORKMEN'S COMP REQUEST, ISTOP REGISTRY REVIEWED AND DEMONSTRATES COMPLLIANCE. BRINGS IN MEDICATIONS WHICH IS APPROPRIATE FOR WHAT WAS DISPENSED. RECENT URINE TOXICOLOGY REVIEWED. NO UNAUTHORIZED MEDICATIONS. NO ILLICIT SUBSTANCES AND PRESCRIBED MEDICATIONS WERE PRESENT. , RISKS OF NARCOTIC/OPIOD MEDICATIONS INCLUDES BUT IS NOT LIMITED TO RISK OF DEPENDANCE/DEVELOPMENT OF ADDICTION, MOOD DISTURBANCE AND DEPRESSION, OSTEOPOROSIS, HORMONAL AND LABIDAL CHANGES, RESPIRATORY DEPRESSION AND . PATIENT IS ADVISED NOT TO DRIVE OR DRINK ALCOHOL WHILE ON THESE MEDICATIONS URINE TOX TODAYFENTANYL PATCHES FORMERLY WASTED PER CLINIC POLICY. PROCEDURES PN WORKMANS' COMP OPINION IN YOUR OPINION, WAS THE INCIDENT THAT THE PATIENT DESCRIBED THE COMPETENT MEDICAL CAUSE OF THIS INJURY/ILLNESS? YES ARE THE PATIENT'S COMPLAINTS CONSISTENT WITH HIS/HER HISTORY OF THE INJURY/ILLNESS? YES IS THE PATIENT'S HISTORY OF THE INJURY/ILLNESS CONSISTENT WITH YOUR OBJECTIVE FINDING? YES WHAT IS THE PERCENTAGE OF TEMPORARY IMPAIRMENT? MODERATE TO MARKED = 66.7% IS THE PATIENT WORKING? NO DOCTOR ON SITE: JAVON VALDEZ MD PREVENTIVE MEDICINE PAIN CLINIC TEACHING: PROCEDURE TEACHING REVIEWED INFORMATION ON BOTOX AND LUMBAR EPIDURAL STEROID INJECTION PROCEDURES WITH PATIENT. ALSO REVIEWED PRE-PROCEDURE INSTRUCTIONS. PATIENT VERBALIZED AN UNDERSTANDING. SAMY MOTLEY 01/22/2020 12:02:02 PM > . DISPOSITION & COMMUNICATION FOLLOW UP POST LESI (REASON: WORKMEN'S COMP REQUEST BOTOX AFTER 04/08/2020 IN ACCORDANCE WITH TREATMENT GUIDELINES FOR CHRONIC MIGRAINE: BOTOX SHOULD BE ADMINISTERED EVERY 3 MONTHS FOR PREVENTATIVE BENEFITS) ELECTRONICALLY SIGNED BY MEKA BAPTISTE ON 01/22/2020 AT 02:53 PM EDT DISCLAIMER : THIS IS A VISIT SUMMARY EXTRACTED FROM THE [facility] CHART. IT IS NOT A COPY OF THE [employer] PROGRESS NOTE. NAHEED
== END ==
LOC: M PAIN 09:30
PROVIDERS: ATTEND Nurse Practitioner Family
DX: G43.709 Chronic migraine without aura, not intractable, without status migrainosus (principal); M51.17 Intervertebral disc disorders with radiculopathy, lumbosacral region; E11.9 Type 2 diabetes mellitus without complications; I10 Essential (primary) hypertension; E03.9 Hypothyroidism, unspecified; Z88.1 Allergy status to other antibiotic agents; Z88.5 Allergy status to narcotic agent; Z88.8 Allergy status to other drugs, medicaments and biological substances; E66.01 Morbid (severe) obesity due to excess calories; Z68.42 Body mass index [BMI] 45.0-49.9, adult; Z79.84 Long term (current) use of oral hypoglycemic drugs; Z79.891 Long term (current) use of opiate analgesic; Z79.899 Other long term (current) drug therapy

== ENCOUNTER → 2020-02-10 | Outpatient (CLI) | payer OTHER | LOC: M LABSMTC 13:42 | PROVIDERS: ATTEND Anesthesiology | DX: Z11.59 Encounter for screening for other viral diseases (principal) ==

== ENCOUNTER → 2020-02-12 | Outpatient (CLI) | payer OTHER ==
[~2020-02-12] MED LIST changes: +ISOVUE-M 300 61% 15ML VIAL As Ordered ONE; +LIDOCAINE 1% SDV 30ML VIAL As Ordered ONE; +dexameTHASONE 10MG/1ML VIAL PRES.FREE (J1100 PER 1MG) As Ordered ONE; +diazePAM 5 MG TAB As Ordered ONE; +oxyCODONE 5MG TAB As Ordered ONE
--- NOTE | 2020-02-12 11:09 | REP ---
C-ARM VIEWS LUMBAR SPINE: CLINICAL HISTORY: Pain. Three C-arm views of the lower lumbar spine performed during epidural injection performed by Dr. Cota. A needle is seen in the L4-5 level and a small amount of contrast is injected. 10 seconds of fluoroscopy time utilized. Electronically Signed by Sim Zee MD 02/12/2020 12:02 P
--- NOTE | 2020-02-18 00:54 | ECWPNPC ---
PATIENT NAME: ALEX JI : 1965 GENDER: MALE VISIT DATE: 02/12/2020 DISCHARGE DATE: 02/12/20 1013 VISIT LOCKED DATE TIME: PHYSICIAN: JAVON LEONARDO MD RESOURCE: JAVON LEONARDO MD REASON FOR APPOINTMENT 1. W/C LUMBAR EPIDURAL STEROID INJECTION L4/L5 HISTORY OF PRESENT ILLNESS HISTORY OF PRESENT ILLNESS: PAIN THE PATIENT DESCRIBES THE PAIN... FALL RISK SCREENING: SCREENING :NO FALLS REPORTED IN THE LAST YEAR CURRENT MEDICATIONS TAKING NARCAN 4 MG/0.1ML LIQUID DIRECTED NASALLY FOR OPIOID OVERDOSE, NOTES: NEVER TAKING PINDOLOL 5 MG TABLET 1 TABLET ORALLY QID, NOTES: 02/11 600 TAKING POTASSIUM CHLORIDE 10 MEQ (PRT) TABLET EXTENDED RELEASE 1 TABLET ORALLY TWICE DAILY, NOTES: 02/11 600 TAKING METFORMIN HCL ER 750 MG TABLET EXTENDED RELEASE 24 HOUR ORALLY TWICE A DAY, NOTES: 02/10 600 TAKING ATENOLOL 50 MG TABLET 1 TABLET ORALLY BID, NOTES: 02/11 600 TAKING LEVOTHYROXINE SODIUM 50 MCG TABLET 1 TABLET ORALLY ONCE A DAY, NOTES: 02/10 1200 TAKING TRIAMTERENE-HCTZ 37.5-25 MG TABLET 1 TABLET IN THE MORNING ORALLY ONCE A DAY, NOTES: 02/11 600 TAKING FLONASE ALLERGY RELIEF 50 MCG/ACT SUSPENSION 1 SPRAY IN EACH NOSTRIL NASALLY ONCE A DAY, NOTES: JUST NEEDED 02/11 600 TAKING MAY HAVE - - MEDICAL MARIJUANA DIRECTED, NOTES: 02/11 600 TAKING CYCLOBENZAPRINE HCL 10 MG TABLET 1 TABLET NEEDED ORALLY Q6-8H PRN FOR SEVERE MUSCLE SPASM PAIN #45 TAB. SHOULD LAST 30 DAYS, NOTES: 02/09 TAKING TOPAMAX 100 MG TABLET 1 TABLET ORALLY FOR PAIN TWICE A DAY, NOTES: 02/11 600 TAKING COLACE 100 MG CAPSULE 1 CAPSULE NEEDED ORALLY ONCE A DAY, NOTES: 3-4 DAYS AGP TAKING KETOROLAC TROMETHAMINE 10 MG TABLET 1 TABLET WITH FOOD OR MILK NEEDED ORALLY Q6H PRN FOR SEVERE PAIN MDD4, NOTES: 02/09 TAKING AMITRIPTYLINE HCL 50 MG TABLET 3 ORALLY FOR PAIN ONCE A DAY, NOTES: 02/10 2200 TAKING PERCOCET 7.5-325 MG TABLET 1 ORALLY Q6H PRN MDD4, NOTES: 4/30 0600 NOT-TAKING FENTANYL 12 MCG/HR PATCH 72 HOUR 1 PATCH TO SKIN TRANSDERMAL Q72 HR=MDD, NOTES: NOT TAKING MEDICATION LIST REVIEWED AND RECONCILED WITH THE PATIENT PAST MEDICAL HISTORY DM, HTN, CHRONIC PAIN , THYROID DISEASE, GERD, MIGRANES LEFT KNEE PAIN RIGHT SHOULDER LABRIUM TEAR ALLERGIES AZITHROMYCIN: LIP SWELLING - ALLERGY SUMATRIPTAN: FACIAL SWELLING - ALLERGY PROPOXYPHENE: PRICKLY FEELING, RASH, SOB - ALLERGY SURGICAL HISTORY FUSION C3-C4 1994 3 SURGURIES TO LEFT KNEE 1993 FAMILY HISTORY FATHER: 51 YRS, DIAGNOSED WITH DIABETES MOTHER: 50 YRS, OTHER MALIGNANT NEOPLASM OF UNSPECIFIED SITE 3 BROTHER(S) , 2 SISTER(S) . 1 SON(S) - HEALTHY. ON BROTHER R\/T PANCREATIC CANCER, ONE SISTER WITH MS \NBROTHER - COMPLICATIONS FROM AGENT ORANGE\NBROTHER - BLOOD CLOT. SOCIAL HISTORY GENERAL: TOBACCO USE ARE YOU A:NONSMOKER LATEX QUESTIONNAIRE LATEX ALLERGY : HAVE YOU EVER DEVELOPED ANY TYPE OF REACTION AFTER HANDLING LATEX PRODUCTS SUCH RUBBER GLOVES, CONDOMS, DIAPHRAGMS, BALLOONS, SOCKS, OR UNDERWEAR?NO LATEX ALLERGY : HAVE YOU EVER DEVELOPED ANY TYPE OF REACTION DURING OR AFTER DENTAL APPOINTMENT, VAGINAL/RECTAL EXAMINATION, SURGICAL PROCEDURE, OR ANY OTHER EXPOSURE?NO LATEX RISK : HAVE YOU EVER HAD ANY DIFFICULTY BREATHING OR HIVES AFTER EATING OR HANDLING ANY FRUITS, OR VEGETABLES; SUCH KIWI, BANANAS, STONE FRUITS, OR CHESTNUTSNO LATEX RISK : DO YOU HAVE A PREVIOUS PERSONAL HISTORY OF MORE THAN NINE SURGERIES, SPINA BIFIDA, OR REPEATED CATHERIZATIONS? NO LATEX RISK : ARE YOU FREQUENTLY EXPOSED TO LATEX PRODUCTS IN YOUR OCCUPATION?NO DATE ASKED : 02/11/2020 LUNG CANCER SCREENING SMOKING STATUS:NON SMOKER ALCOHOL SCREENING DID YOU HAVE A DRINK CONTAINING ALCOHOL IN THE PAST YEAR?NO POINTS0 INTERPRETATIONNEGATIVE RECREATIONAL DRUG USE DRUG USE?NO CAFFEINE CAFFEINE USE?NO HIV / HEP-C SCREENING HIV TEST OFFERED TO PATIENT:YES DATE OFFERED:01/17/2018 TEST ACCEPTED:NO HEP-C TEST OFFERED TO PATIENT:YES DATE OFFERED:01/17/2018 REASON:PATIENT DECLINED TEST ACCEPTED:NO REASON:PATIENT DECLINED BROCHURE PROVIDED TO PATIENTNO SIKHISM [id number] GNOSTICIST LANGUAGE LANGUAGES SPOKEN:MOHAWK LEARNING BARRIERS / SPECIAL NEEDS CHANGE FROM LAST VISIT?NO BARRIERS TO LEARNING?NO HEARING IMPAIRED?NO VISION IMPAIRED?YES COGNITIVELY IMPAIRED?NO :CORRECTIVE LENSES READINESS TO LEARN?YES LEARNING PREFERENCES?YES :BOOKLETS, HANDOUTS LEARNING CAPABILITIES PRESENT?YES EMOTIONAL BARRIERS?NO SPECIAL DEVICES?YES :CANE, WHEELCHAIR DOMESTIC VIOLENCE DO YOU FEEL SAFE IN YOUR ENVIRONMENT?YES NEW PATIENT PAIN DIARY TODAY'S VISITNOTES 02/12/2020 PATIENT DESCRIBES PAIN :ACHING, BURNING, HAVE IT ALL THE TIME FROM 0-10, WHAT LEVEL IS YOUR PAIN TODAY?7 PAIN CLINIC PFS, CLERGY, PUBLIC HEALTH REFERRALS PFS REFERRAL NEEDED?NO CLERGY REFERRAL NEEDED?NO PUBLIC HEALTH REFERRAL NEEDED?NO WAS THE PROVIDER NOTIFIED OF ANY PERTINENT INFO?YES N/A HAS THE PATIENT BEEN EDUCATED REGARDING HIS/HER PLAN OF CARE?YES HAS THE PATIENT BEEN EDUCATED REGARDING PAIN, THE RISK FOR PAIN, THE IMPORTANCE OF EFFECTIVE PAIN MANAGEMENT, AND THE PAIN ASSESSMENT PROCESS?YES ADVANCE DIRECTIVE ADVANCE DIRECTIVE DISCUSSED WITH PATIENT:YES 02/12/2020 HCP - SHE JI () PAT DONE - DS. HOSPITALIZATION/MAJOR DIAGNOSTIC PROCEDURE SURGERIES HYPERTENSION HEAD INJURY 03/1986 REVIEW OF SYSTEMS REVIEWED BY: PROVIDER: JAVON LEONARDO MD . CONSTITUTIONAL: ANY CHANGE IN YOUR MEDICAL CONDITION? NO . CHILLS NO . FEVER NO . INFECTION: DO YOU HAVE NEW INFECTIONS? NO . DO YOU HAVE HISTORY OF MRSA? NO . MUSCULOSKELETAL: ANY NEW PATTERNS OF PAIN OR NUMBNESS? YES, PAIN NOW IS RADIATING INTO BOTH FEET, FEET BOTH FEEL THOUGH THEY HAVE SIGNIFICANT PRESSURE SENSATION . GASTROENTEROLOGY: ANY NEW CHANGE IN BOWEL CONTROL? NO . GENITOURINARY: ANY NEW CHANGE IN BLADDER CONTROL? NO . IS THERE A CHANCE YOU COULD BE ? NO . HEMATOLOGY/LYMPH: DO YOU TAKE ANY BLOOD THINNERS? (FOR EXAMPLE- COUMADIN, PLAVIX, AGGRENOX, PLATEL, PRADAXA, OR XARELTO) NO . WHEN WAS YOUR LAST DOSE? DATE: TIME: . NEUROLOGY: HAVE YOU FALLEN IN THE PAST 12 MONTHS? YES, PT STATES THAT HE FELL ON SUNDAY, NO SIGNIFICANT INJURY, NO REPORT TO ED.DS . ANY NEW EXTREMITY NUMBNESS OR WEAKNESS? NO . CARDIOLOGY: DO YOU HAVE A PACEMAKER OR DEFIBRILLATOR? NO . RESPIRATORY: HAVE YOU BEEN SICK IN THE PAST WEEK? NO . FEVER NO . FLU LIKE SYMPTOMS? NO . COUGH NO . INTEGUMENTARY: DO YOU HAVE ANY RASHES OR OPEN SORES? YES, SMALL SCAB WITH REDDENED AREA AROUND IT NOTED RIGHT LOWER LEG. DR. LEONARDO AWARE AND IN TO SEE PT. OKAY TO PROCEED WITH PROCEDURE.AD . ALLERGIC/IMMUNO: ARE YOU ALLERGIC TO IV DYE? NO . ANY NEW ALLERGIES? NO . PSYCHIATRIC: DO YOU HAVE THOUGHTS OF HURTING YOURSELF OR SOMEONE ELSE? NO . ARE YOU ABUSED, NEGLECTED, OR IN AN UNSAFE ENVIRONMENT? NO . ENDOCRINOLOGY: ARE YOU DIABETIC? YES, MANAGED WITH METFORMIN . OTHER: DO YOU NEED ANY PRESCRIPTIONS? NO . IF YES, PLEASE LIST: ____ . ANY NEW PROBLEMS WITH YOUR MEDICATIONS? NO . WHEN DID YOU LAST EAT? 02/10 1830 . WHEN DID YOU LAST DRINK? 02/11 06 . WHAT DID YOU LAST DRINK? WATER . NAME OF PERSON DRIVING YOU HOME? -SHE . DO YOU HAVE ANY OTHER QUESTIONS OR CONCERNS NO . VITAL SIGNS WT 364.0 LBS, HT 75 IN, BMI 45.49 INDEX, BP 188/86 MM HG, HR 94 /MIN, RR 16 /MIN, TEMP 97.0 F, OXYGEN SAT % 99%, NA INITIALS AW 0943, REVIEWED BY: AD. ASSESSMENTS INTERVERTEBRAL DISC DISORDERS WITH RADICULOPATHY, LUMBAR REGION - M51.16 (PRIMARY) LOW BACK PAIN - M54.5 OTHER CHRONIC PAIN - G89.29 TREATMENT INTERVERTEBRAL DISC DISORDERS WITH RADICULOPATHY, LUMBAR REGION [facility] FLUORO GUIDE SPINE INJECTION (PAIN) PROCEDURES PN WORKMANS' COMP OPINION IN YOUR OPINION, WAS THE INCIDENT THAT THE PATIENT DESCRIBED THE COMPETENT MEDICAL CAUSE OF THIS INJURY/ILLNESS? YES ARE THE PATIENT'S COMPLAINTS CONSISTENT WITH HIS/HER HISTORY OF THE INJURY/ILLNESS? YES IS THE PATIENT'S HISTORY OF THE INJURY/ILLNESS CONSISTENT WITH YOUR OBJECTIVE FINDING? YES WHAT IS THE PERCENTAGE OF TEMPORARY IMPAIRMENT? MODERATE TO MARKED = 66.7% IS THE PATIENT WORKING? NO DOCTOR ON SITE: JAVON VALDEZ MD PRE PROCEDURE DIAGNOSIS LUMBAR DISC DISORDER WITH RADICULOPATHY POST PROCEDURE DIAGNOSIS LUMBAR DISC DISORDER WITH RADICULOPATHY PROCEDURE LUMBAR EPIDURAL STEROID INJECTION UNDER FLUOROSCOPIC GUIDANCE SURGEON DR. JAVON LEONARDO CARROT BUNCHER NONE ANESTHESIA LOCAL PRE PROCEDURE NOTE THE PATIENT HAS A HISTORY OF CHRONIC LOW BACK PAIN. I EVALUATED THE PATIENT AND REVIEWED THE CHART. I WENT OVER THE RISKS, ALTERNATIVES, AND BENEFITS ASSOCIATED WITH THIS PROCEDURE. I DISCUSSED WITH THE PATIENT THAT THE USE OF STEROIDS MAY CONTRIBUTE TO IMMUNOSUPPRESSION OF HIS BODY AGAINST INFECTIONS SUCH THE CASTRO VIRUS, COVID-19. HE IS AWARE OF THE POTENTIAL COMPLICATIONS ASSOCIATED WITH AN INFECTION OF THIS VIRUS INCLUDING . THE PATIENT WOULD LIKE TO PROCEED AND GIVE CONSENT TO PERFORMED THE PROCEDURE. THE PATIENT DENIES UNEXPLAINABLE WEIGHT LOSS, FEVER, CHILLS, OR NEW CHANGES IN URINARY OR BOWEL CONTROL. THE PATIENT IS COVID-19 NEGATIVE DESCRIPTION OF PROCEDURE THE PATIENT WAS BROUGHT TO THE PROCEDURE ROOM AND PLACED IN THE PRONE POSITION. THE LUMBOSACRAL AREA WAS CLEANED WITH BETADINE SOLUTION AND DRAPED ASEPTICALLY. THE PROCEDURE WAS DONE UNDER STERILE CONDITIONS. I CHECKED LATERALITY AND THE LEVEL WHERE THE PROCEDURE WAS GOING TO BE PERFORMED WITH THE PATIENT AND THE SUPPORTING STAFF AT THE MOMENT OF THE TIME OUT IN THE PROCEDURE ROOM. UNDER FLUOROSCOPIC GUIDANCE, THE TARGET POINT WAS SELECTED AT THE INTERLAMINAR LEVEL OF L4-L5. LIDOCAINE WAS USED TO NUMB THE SKIN AND THE SUBCUTANEOUS TISSUE BELOW IT. EPIDURAL TUOHY NEEDLE, 17-GAUGE, WAS ADVANCED UNDER FLUOROSCOPIC GUIDANCE AND FOLLOWING PATIENT FEEDBACK UNTIL THE EPIDURAL SPACE WAS REACHED, 12 CM DEEP INTO THE SKIN BY THE LOSS OF RESISTANCE TECHNIQUE. ISOVUE M DYE 30%, 0.25 ML, WAS INJECTED SHOWING ADEQUATE SPREAD OF THE DYE. THEN, A SOLUTION OF 3 ML OF NORMAL SALINE WITH DEXAMETHASONE 10 MG WAS INJECTED SLOWLY FOLLOWING PATIENT FEEDBACK. THERE WAS NO EVIDENCE OF BLOOD, PARESTHESIA OR CEREBROSPINAL FLUID DURING THE PROCEDURE. THE PATIENT WAS SENT TO THE RECOVERY ROOM. THE PATIENT WAS MOVING THE EXTREMITIES AND DOING WELL. THERE WAS NO COMPLICATION DURING THE PROCEDURE. FLUOROSCOPY TIME WAS 10 SECONDS POST PROCEDURE NOTE THE PATIENT WILL BE SEEN IN A FOLLOW UP IN THE NEXT FEW WEEKS. I AM LOOKING FOR LONG LASTING PAIN RELIEF FOR THE PATIENT WITH THIS INJECTION. INSTRUCTIONS WERE GIVEN, QUESTIONS WERE ANSWERED, AND THE PATIENT EXPRESSED UNDERSTANDING AND AGREES WITH THE PLAN. I INSTRUCTED THE PATIENT TO STAY HOME, IF POSSIBLE, FOR A WEEK DUE TO COVID-19. I, ALFREDO JIMENEZ, DOCUMENTED THE ABOVE INFORMATION ACTING A SCRIBE FOR DR. LEONARDO. I HAVE REVIEWED THE ABOVE DOCUMENT, WRITTEN BY ALFREDO JIMENEZ, MAYELINIBE, AND I VERIFY THAT IT IS ACCURATE PROCEDURE CODES 89628 LUMBAR/SACRAL W/ IMAGING 6045F RADXPS IN END [id number] PXD DISPOSITION & COMMUNICATION FOLLOW UP F/UP CREDIT RISK ANALYTICS MANAGER. 2 WEEKS (REASON: POST-PROCEDURE F/UP) ELECTRONICALLY SIGNED BY JAVON LEONARDO MD, MD ON 02/17/2020 AT 05:02 PM EDT DISCLAIMER : THIS IS A VISIT SUMMARY EXTRACTED FROM THE [employer] CHART. IT IS NOT A COPY OF THE [employer] PROGRESS NOTE. NAHEED
== END ==
LOC: M PAIN 08:30
PROVIDERS: ATTEND Anesthesiology
DX: M51.16 Intervertebral disc disorders with radiculopathy, lumbar region (principal); M54.5 Low back pain; G89.29 Other chronic pain; E11.9 Type 2 diabetes mellitus without complications; I10 Essential (primary) hypertension; E03.9 Hypothyroidism, unspecified; G43.909 Migraine, unspecified, not intractable, without status migrainosus; Z88.1 Allergy status to other antibiotic agents; Z88.5 Allergy status to narcotic agent; Z88.8 Allergy status to other drugs, medicaments and biological substances; E66.01 Morbid (severe) obesity due to excess calories; Z68.42 Body mass index [BMI] 45.0-49.9, adult; Z79.84 Long term (current) use of oral hypoglycemic drugs; Z79.891 Long term (current) use of opiate analgesic; Z79.899 Other long term (current) drug therapy
CPT/HCPCS: 62323; J1100; Q9967

== ENCOUNTER 2020-03-05 18:48 | Emergency (ER) | payer MEDICARE, OTHER ==
[~2020-03-05] VITALS: Ht 195.6 cm; Wt 152.2 kg
[~2020-03-05 18:48] MED LIST changes: -ISOVUE-M 300 61% 15ML VIAL As Ordered ONE; -LIDOCAINE 1% SDV 30ML VIAL As Ordered ONE; -dexameTHASONE 10MG/1ML VIAL PRES.FREE (J1100 PER 1MG) As Ordered ONE; -diazePAM 5 MG TAB As Ordered ONE; -oxyCODONE 5MG TAB As Ordered ONE
[2020-03-05] MEDS ORDERED: POTA20TA6 (19:01)
[2020-03-05] MEDS ORDERED: PIND25TA (19:01)
[2020-03-05] MEDS ORDERED: CYCL-707 (19:01)
[2020-03-05] MEDS ORDERED: NS 500 ML IV ONE (20:00)
[2020-03-05] MEDS ORDERED: HumuLIN R (REGULAR) INSULIN (NovoLIN R) **100U/ML** PER UNIT IV ONE ×2 (20:15→21:45)
[2020-03-05 20:26] LABS: BASO # 0.1 10^3/uL (0.0-0.2); BASO % 0.9 % (0.0-1.0); EOS # 0.1 10^3/uL (0.0-0.5); EOS % 1.2 % (0.0-3.0); HEMATOCRIT 47.7 % (42.0-52.0); HEMOGLOBIN 16.8 g/dl (13.5-17.5); LYMPH % 18.3 % (24.0-44.0); MEAN CORPUSCULAR HEMOGLOBIN 29.4 pg (27.0-33.0); MEAN CORPUSCULAR HGB CONC 35.2 g/dl (32.0-36.5); MEAN CORPUSCULAR VOLUME 83.5 fl (80.0-96.0); MONO # 1.3 10^3/uL (0.0-0.8); MONO % 11.8 % (0.0-5.0); NEUTROPHILS # 7.1 10^3/uL (1.5-8.5); NEUTROPHILS % 66.7 % (36.0-66.0); PLATELET COUNT, AUTOMATED 267 10^3/uL (150-450); RED BLOOD COUNT 5.71 10^6/uL (4.30-6.10); WHITE BLOOD COUNT 10.7 10^3/uL (4.0-10.0)
[2020-03-05 20:54] LABS: CALCIUM LEVEL 9.4 MG/DL (8.5-10.1); CREATININE FOR GFR 1.56 MG/DL (0.70-1.30); GLOMERULAR FILTRATION RATE 49.4 (>56); POTASSIUM SERUM 4.1 MEQ/L (3.5-5.1)
[2020-03-05 22:29] VITALS: BP 169/78
== END 2020-03-05 22:43 | disposition home or self-care (01) ==
LOC: M ED 18:48
DX: R73.01 Impaired fasting glucose (principal)

== ENCOUNTER 2020-03-06 21:56 | Emergency (ER) | payer MEDICARE, OTHER ==
[~2020-03-06] VITALS: Ht 195.6 cm; Wt 151.8 kg
[~2020-03-06 21:56] MED LIST changes: +CYCL-707; +PIND25TA; +POTA20TA6
[2020-03-06] MEDS ORDERED: NS 1,000 ML IV ONE ×2 (22:15→23:30)
[2020-03-06 22:35] LABS: VENOUS BASE EXCESS -3.4 (-2.0-2.0); VENOUS HCO3 20.9 MEQ/L (23.0-27.0); VENOUS O2 SATURATION 99.1 % (60.0-80.0); VENOUS PARTIAL PRESSURE O2 149.1 mmHg (30.0-50.0); VENOUS PH 7.382 UNITS (7.330-7.430); VENOUS STANDARD HCO3 21.7 MEQ/L
[2020-03-06 22:37] LABS: BASO # 0.1 10^3/uL (0.0-0.2); BASO % 0.8 % (0.0-1.0); EOS # 0.2 10^3/uL (0.0-0.5); EOS % 1.7 % (0.0-3.0); HEMATOCRIT 46.8 % (42.0-52.0); HEMOGLOBIN 16.5 g/dl (13.5-17.5); LYMPH # 2.1 10^3/uL (1.5-5.0); LYMPH % 19.1 % (24.0-44.0); MEAN CORPUSCULAR HEMOGLOBIN 29.7 pg (27.0-33.0); MEAN CORPUSCULAR HGB CONC 35.3 g/dl (32.0-36.5); MEAN CORPUSCULAR VOLUME 84.3 fl (80.0-96.0); MONO # 1.2 10^3/uL (0.0-0.8); NEUTROPHILS # 7.4 10^3/uL (1.5-8.5); NEUTROPHILS % 66.1 % (36.0-66.0); PLATELET COUNT, AUTOMATED 290 10^3/uL (150-450); RED BLOOD COUNT 5.55 10^6/uL (4.30-6.10); WHITE BLOOD COUNT 11.2 10^3/uL (4.0-10.0)
[2020-03-06 23:09] LABS: ACETONE/KETONE 25.61 MG/DL (<2.81); ALBUMIN 4.1 GM/DL (3.2-5.2); BILIRUBIN,DIRECT 0.3 MG/DL (0.0-0.2); BILIRUBIN,TOTAL 1.3 MG/DL (0.2-1.0); TOTAL PROTEIN 7.3 GM/DL (6.4-8.2)
[2020-03-06] MEDS ORDERED: HumaLOG INSULIN (NovoLOG) PER UNIT SC STA (23:24)
[2020-03-06] MEDS ORDERED: LEVEMIR (INSULIN DETEMIR) 1 UNITS/0.01ML SC ONE (23:30)
[2020-03-07] MEDS ORDERED: HumaLOG INSULIN (NovoLOG) PER UNIT SC STA (00:44)
[2020-03-07] MEDS ORDERED: LEVE1INJ5 SC (02:50)
[2020-03-07 02:58] VITALS: BP 139/88
== END 2020-03-07 03:09 | disposition home or self-care (01) ==
LOC: M ED 21:56
DX: E11.65 Type 2 diabetes mellitus with hyperglycemia (principal); I10 Essential (primary) hypertension; G43.909 Migraine, unspecified, not intractable, without status migrainosus; M54.9 Dorsalgia, unspecified; G89.29 Other chronic pain; Z88.1 Allergy status to other antibiotic agents; Z88.5 Allergy status to narcotic agent; Z88.8 Allergy status to other drugs, medicaments and biological substances; Z79.899 Other long term (current) drug therapy; Z79.84 Long term (current) use of oral hypoglycemic drugs

== ENCOUNTER → 2020-04-09 | Outpatient (CLI) | payer OTHER ==
[~2020-04-09] MED LIST changes: +LEVE1INJ5 SC
--- NOTE | 2020-04-14 02:49 | ECWPNPC ---
PATIENT NAME: ALEX JI : 1965 GENDER: MALE VISIT DATE: 04/09/2020 DISCHARGE DATE: 04/09/20 1047 VISIT LOCKED DATE TIME: PHYSICIAN: BLANE EUGENE RESOURCE: BLANE EUGENE REASON FOR APPOINTMENT 1. 1 [facility] HISTORY OF PRESENT ILLNESS GENERAL: -. FALL RISK SCREENING: SCREENING :NO FALLS REPORTED IN THE LAST YEAR PAIN SCREENING: PATIENT HAS A COMPLAINT OF ACUTE OR CHRONIC PAIN :NO NURSING NOTE: -. PAIN CENTER INTAKE QUESTIONS: DO YOU HAVE A HISTORY OF MRSA? :NO DO YOU TAKE A BLOOD THINNERS? :NO DO YOU HAVE ANY BLEEDING DISORDERS? :NO ANY NEW NUMBNESS OR WEAKNESS IN YOUR LEGS OR ARMS? :NO ANY PACEMAKER,DEFIBRILLATOR, OR DORSAL COLUMN STIMULATOR? :NO DO YOU HAVE ANY RASHES OR OPEN SORES? :NO ARE YOU ALLERGIC TO IV DYE? :NO ARE YOU DIABETIC? :NO ANY NEW PROBLEMS WITH YOUR MEDICATIONS? :NO HAVE YOU RECEIVED A VACCINE IN THE PAST 30 DAYS? :NO DO YOU PLAN TO RECEIVE A VACCINE IN THE NEXT 21 DAYS? :NO DO YOU NEED ANY PRESCRIPTION? :NO DO YOU TAKE ANY IMMUNOSUPPRESSIVE MEDICATIONS? :NO IS THERE A CHANCE YOU COULD BE ? :NO ARE YOU BREAST FEEDING? :NO HISTORY OF PRESENT ILLNESS: HERE FOR FOLLOW-UP OF CHRONIC HEAD AND BACK PAIN. THIS IS A WORK RELATED INJURY WITH DATE OF INJURY 04/13/1986. COMPLAINING OF SEVERE DAILY HEADACHES. HAS BENEFITED FROM BOTOX IN THE PAST. IT'S BEEN SEVERAL MONTHS SINCE LAST BOTOX. HAS DISCONTINUED FENTANYL PATCH. USING MEDICAL MARIJUANA. PAIN THE PATIENT DESCRIBES THE PAIN... CURRENT MEDICATIONS TAKING PINDOLOL 5 MG TABLET 1 TABLET ORALLY QID TAKING POTASSIUM CHLORIDE 10 MEQ (PRT) TABLET EXTENDED RELEASE 1 TABLET ORALLY TWICE DAILY TAKING METFORMIN HCL ER 750 MG TABLET EXTENDED RELEASE 24 HOUR ORALLY TWICE A DAY TAKING ATENOLOL 50 MG TABLET 1 TABLET ORALLY BID TAKING LEVOTHYROXINE SODIUM 50 MCG TABLET 1 TABLET ORALLY ONCE A DAY TAKING TRIAMTERENE-HCTZ 37.5-25 MG TABLET 1 TABLET IN THE MORNING ORALLY ONCE A DAY TAKING FLONASE ALLERGY RELIEF 50 MCG/ACT SUSPENSION 1 SPRAY IN EACH NOSTRIL NASALLY ONCE A DAY TAKING MAY HAVE - - MEDICAL MARIJUANA DIRECTED TAKING CYCLOBENZAPRINE HCL 10 MG TABLET 1 TABLET NEEDED ORALLY Q6-8H PRN FOR SEVERE MUSCLE SPASM PAIN #45 TAB. SHOULD LAST 30 DAYS TAKING TOPAMAX 100 MG TABLET 1 TABLET ORALLY FOR PAIN TWICE A DAY TAKING KETOROLAC TROMETHAMINE 10 MG TABLET 1 TABLET WITH FOOD OR MILK NEEDED ORALLY Q6H PRN FOR SEVERE PAIN MDD4 TAKING AMITRIPTYLINE HCL 50 MG TABLET 3 ORALLY FOR PAIN ONCE A DAY TAKING PERCOCET 7.5-325 MG TABLET 1 ORALLY Q6H PRN MDD4 TAKING LEVEMIR 100 UNIT/ML SOLUTION 16 UNITS SUBCUTANEOUS BID NOT-TAKING COLACE 100 MG CAPSULE 1 CAPSULE NEEDED ORALLY ONCE A DAY NOT-TAKING NARCAN 4 MG/0.1ML LIQUID DIRECTED NASALLY FOR OPIOID OVERDOSE, NOTES: NEVER NOT-TAKING FENTANYL 12 MCG/HR PATCH 72 HOUR 1 PATCH TO SKIN TRANSDERMAL Q72 HR=MDD, NOTES: NOT TAKING MEDICATION LIST REVIEWED AND RECONCILED WITH THE PATIENT PAST MEDICAL HISTORY DM, HTN, CHRONIC PAIN , THYROID DISEASE, GERD, MIGRANES LEFT KNEE PAIN RIGHT SHOULDER LABRIUM TEAR FUSION AT 3-4 C ALLERGIES AZITHROMYCIN: LIP SWELLING - ALLERGY SUMATRIPTAN: FACIAL SWELLING - ALLERGY PROPOXYPHENE: PRICKLY FEELING, RASH, SOB - ALLERGY SURGICAL HISTORY FUSION C3-C4 1994 3 SURGURIES TO LEFT KNEE 1993 FAMILY HISTORY FATHER: 51 YRS, DIAGNOSED WITH DIABETES MOTHER: 50 YRS, OTHER MALIGNANT NEOPLASM OF UNSPECIFIED SITE 3 BROTHER(S) , 2 SISTER(S) . 1 SON(S) - HEALTHY. ON BROTHER R\/T PANCREATIC CANCER, ONE SISTER WITH MS \NBROTHER - COMPLICATIONS FROM AGENT ORANGE\NBROTHER - BLOOD CLOT. SOCIAL HISTORY GENERAL: TOBACCO USE ARE YOU A:NONSMOKER LATEX QUESTIONNAIRE LATEX ALLERGY : HAVE YOU EVER DEVELOPED ANY TYPE OF REACTION AFTER HANDLING LATEX PRODUCTS SUCH RUBBER GLOVES, CONDOMS, DIAPHRAGMS, BALLOONS, SOCKS, OR UNDERWEAR?NO LATEX ALLERGY : HAVE YOU EVER DEVELOPED ANY TYPE OF REACTION DURING OR AFTER DENTAL APPOINTMENT, VAGINAL/RECTAL EXAMINATION, SURGICAL PROCEDURE, OR ANY OTHER EXPOSURE?NO DATE ASKED : 02/27/2020 LATEX RISK : HAVE YOU EVER HAD ANY DIFFICULTY BREATHING OR HIVES AFTER EATING OR HANDLING ANY FRUITS, OR VEGETABLES; SUCH KIWI, BANANAS, STONE FRUITS, OR CHESTNUTSNO LATEX RISK : DO YOU HAVE A PREVIOUS PERSONAL HISTORY OF MORE THAN NINE SURGERIES, SPINA BIFIDA, OR REPEATED CATHERIZATIONS? NO LATEX RISK : ARE YOU FREQUENTLY EXPOSED TO LATEX PRODUCTS IN YOUR OCCUPATION?NO LUNG CANCER SCREENING SMOKING STATUS:NON SMOKER ALCOHOL SCREENING DID YOU HAVE A DRINK CONTAINING ALCOHOL IN THE PAST YEAR?NO POINTS0 INTERPRETATIONNEGATIVE RECREATIONAL DRUG USE DRUG USE?NO CAFFEINE CAFFEINE USE?NO HIV / HEP-C SCREENING HIV TEST OFFERED TO PATIENT:YES DATE OFFERED:01/17/2018 TEST ACCEPTED:NO HEP-C TEST OFFERED TO PATIENT:YES DATE OFFERED:01/17/2018 REASON:PATIENT DECLINED TEST ACCEPTED:NO REASON:PATIENT DECLINED BROCHURE PROVIDED TO PATIENTNO CHRISTIANITY [id number] ANABAPTISM LANGUAGE LANGUAGES SPOKEN:GERMAN LEARNING BARRIERS / SPECIAL NEEDS CHANGE FROM LAST VISIT?NO BARRIERS TO LEARNING?NO HEARING IMPAIRED?NO VISION IMPAIRED?YES COGNITIVELY IMPAIRED?NO :CORRECTIVE LENSES READINESS TO LEARN?YES LEARNING PREFERENCES?YES :BOOKLETS, HANDOUTS LEARNING CAPABILITIES PRESENT?YES EMOTIONAL BARRIERS?NO SPECIAL DEVICES?YES :CANE, WHEELCHAIR DOMESTIC VIOLENCE DO YOU FEEL SAFE IN YOUR ENVIRONMENT?YES NEW PATIENT PAIN DIARY TODAY'S VISITNOTES 02/27/2020 PATIENT DESCRIBES PAIN :ACHING, BURNING, HAVE IT ALL THE TIME FROM 0-10, WHAT LEVEL IS YOUR PAIN TODAY?7 PAIN CLINIC PFS, CLERGY, PUBLIC HEALTH REFERRALS PFS REFERRAL NEEDED?NO CLERGY REFERRAL NEEDED?NO PUBLIC HEALTH REFERRAL NEEDED?NO WAS THE PROVIDER NOTIFIED OF ANY PERTINENT INFO?YES N/A HAS THE PATIENT BEEN EDUCATED REGARDING HIS/HER PLAN OF CARE?YES HAS THE PATIENT BEEN EDUCATED REGARDING PAIN, THE RISK FOR PAIN, THE IMPORTANCE OF EFFECTIVE PAIN MANAGEMENT, AND THE PAIN ASSESSMENT PROCESS?YES ADVANCE DIRECTIVE ADVANCE DIRECTIVE DISCUSSED WITH PATIENT:YES HCP - SHE JI () PAT DONE 4-29 DS. HOSPITALIZATION/MAJOR DIAGNOSTIC PROCEDURE SURGERIES HYPERTENSION HEAD INJURY 03/1986 REVIEW OF SYSTEMS CONSTITUTIONAL: ANY RECENT FEVER NO . CHILLS NO . WEIGHT CHANGE OF UNKNOWN REASONS NO . GASTROENTEROLOGY: NEW UNEXPLAINABLE CHANGES IN BOWEL CONTROL NO . CONSTIPATION NO . GENITOURINARY: ANY NEW CHANGE IN BLADDER CONTROL? NO . NEUROLOGY: NEW ONSET DIZZINESS OR NEUROLOGICAL CHANGES NOT MENTIONED NO . NEW NUMBNESS OR PAIN PATTERNS NOT MENTIONED AND PERTINENT TO TODAY'S VISIT NO . CARDIOLOGY: NEW CHEST PRESSURE NO . NEW CHEST PAIN NO . RESPIRATORY: UNEXPLAINABLE COUGH NO . NEW SHORTNESS OF BREATH NO . VITAL SIGNS WT 329.2 LBS, HT 75 IN, BMI 41.14 INDEX, BP 137/74 MM HG, HR 90 /MIN, RR 18 /MIN, TEMP 97.3 F, OXYGEN SAT % 96%, NA INITIALS SC 10:14. EXAMINATION GENERAL EXAMINATION: GENERALAWAKE,ALERT ,PLEASANT . PSYCHAFFECT NORMAL . LUNGS:LUNG OWENS ARE CLEAR TO AUSCULTATION BILATERALLY. GOOD MOVEMENT OF AIR . HEART:S1, S2 IN A REGULAR RATE AND RHYTHM. NO SIGNIFICANT MURMURS, RUBS OR GALLOPS NOTED . ASSESSMENTS INTERVERTEBRAL DISC DISORDERS WITH RADICULOPATHY, LUMBOSACRAL REGION - M51.17 (PRIMARY) CHRONIC MIGRAINE - G43.709 TREATMENT INTERVERTEBRAL DISC DISORDERS WITH RADICULOPATHY, LUMBOSACRAL REGION CONTINUE PERCOCET TABLET, 7.5-325 MG, 1, ORALLY, Q6H PRN MDD4 CONTINUE AMITRIPTYLINE HCL TABLET, 50 MG, 3, ORALLY FOR PAIN, ONCE A DAY CONTINUE KETOROLAC TROMETHAMINE TABLET, 10 MG, 1 TABLET WITH FOOD OR MILK NEEDED, ORALLY, Q6H PRN FOR SEVERE PAIN MDD4 CONTINUE COLACE CAPSULE, 100 MG, 1 CAPSULE NEEDED, ORALLY, ONCE A DAY NOTES: WE ARE REQUESTING MRI OF LS SPINE WITH IV SEDATION. WORKMEN'S COMP COORDINATOR SPOKE WITH PATIENT. FOLLOW-UP WILL BE SCHEDULED POST BOTOX. PROCEDURES PN WORKMANS' COMP OPINION IN YOUR OPINION, WAS THE INCIDENT THAT THE PATIENT DESCRIBED THE COMPETENT MEDICAL CAUSE OF THIS INJURY/ILLNESS? YES ARE THE PATIENT'S COMPLAINTS CONSISTENT WITH HIS/HER HISTORY OF THE INJURY/ILLNESS? YES IS THE PATIENT'S HISTORY OF THE INJURY/ILLNESS CONSISTENT WITH YOUR OBJECTIVE FINDING? YES WHAT IS THE PERCENTAGE OF TEMPORARY IMPAIRMENT? MILD = 25% IS THE PATIENT WORKING? NO DOCTOR ON SITE: JAVON VALDEZ MD PROCEDURE CODES FA211 ESTABILISHED PATIENT [facility] FACILITY CHARGE DISPOSITION & COMMUNICATION FOLLOW UP 1 MONTH POST BOTOX (REASON: W/C HEADACHE/BACK PAIN) ELECTRONICALLY SIGNED BY MEKA BAPTISTE ON 04/13/2020 AT 03:35 PM EDT DISCLAIMER : THIS IS A VISIT SUMMARY EXTRACTED FROM THE [employer] CHART. IT IS NOT A COPY OF THE [employer] PROGRESS NOTE. NAHEED
== END ==
LOC: M PAIN 09:45
PROVIDERS: ATTEND Nurse Practitioner Family
DX: M51.17 Intervertebral disc disorders with radiculopathy, lumbosacral region (principal); G43.709 Chronic migraine without aura, not intractable, without status migrainosus; E11.9 Type 2 diabetes mellitus without complications; I10 Essential (primary) hypertension; Z79.4 Long term (current) use of insulin; Z79.891 Long term (current) use of opiate analgesic; Z79.899 Other long term (current) drug therapy; Z88.1 Allergy status to other antibiotic agents; Z88.8 Allergy status to other drugs, medicaments and biological substances

== ENCOUNTER → 2020-04-18 | Outpatient (CLI) | payer OTHER | LOC: M LABSMTC 09:33 | PROVIDERS: ATTEND Anesthesiology | DX: Z03.818 Encounter for observation for suspected exposure to other biological agents ruled out (principal); Z11.59 Encounter for screening for other viral diseases | CPT/HCPCS: C9803; U0003 ==

== ENCOUNTER → 2020-04-21 | Outpatient (CLI) | payer OTHER ==
[~2020-04-21] MED LIST changes: +BOTOX THERAPEUTIC 100 UNIT VIAL (J0585 PER 1 UNIT) IM ONE; +diazePAM 5 MG TAB As Ordered ONE; +diphenhydrAMINE 25MG CAP As Ordered ONE; +oxyCODONE 5MG TAB As Ordered ONE
--- NOTE | 2020-04-22 02:39 | ECWPNPC ---
PATIENT NAME: ALEX JI : 1965 GENDER: MALE VISIT DATE: 04/21/2020 DISCHARGE DATE: 04/21/20 1248 VISIT LOCKED DATE TIME: PHYSICIAN: JAVON LEONARDO MD RESOURCE: JAVON LEONARDO MD REASON FOR APPOINTMENT 1. BOTOX WAS APPROVED FOR 1 INJECTION ONLY. W/C HISTORY OF PRESENT ILLNESS GENERAL: -. FALL RISK SCREENING: SCREENING :TWO OR MORE FALLS WITHOUT INJURY IN THE PAST YEAR PAIN SCREENING: PATIENT HAS A COMPLAINT OF ACUTE OR CHRONIC PAIN :YES LOCATION OF PAIN: HEAD NECK SHOULDERS INTENSITY OF PAIN (SCALE OF 1 TO 10):7 WHAT DOES YOUR PAIN FEEL LIKE:CONTINOUS, TENDER, THROBBING PAIN IS INCREASED BY:ACTIVITIES PAIN IS DECREASED BY:OTHERS LAY DOWN NURSING NOTE: -. PAIN CENTER INTAKE QUESTIONS: DO YOU HAVE A HISTORY OF MRSA? :NO DO YOU TAKE A BLOOD THINNERS? :NO DO YOU HAVE ANY BLEEDING DISORDERS? :NO ANY NEW NUMBNESS OR WEAKNESS IN YOUR LEGS OR ARMS? :NO ANY PACEMAKER,DEFIBRILLATOR, OR DORSAL COLUMN STIMULATOR? :NO DO YOU HAVE ANY RASHES OR OPEN SORES? :NO ARE YOU ALLERGIC TO IV DYE? :NO ARE YOU DIABETIC? :YES METFORMIN ANY NEW PROBLEMS WITH YOUR MEDICATIONS? :NO HAVE YOU RECEIVED A VACCINE IN THE PAST 30 DAYS? :NO DO YOU PLAN TO RECEIVE A VACCINE IN THE NEXT 21 DAYS? :NO DO YOU TAKE ANY IMMUNOSUPPRESSIVE MEDICATIONS? :NO ANY HISTORY OF SEIZURES? :NO ANY HISTORY OF CARDIAC ISSUES OR EVENTS? :NO DO YOU HAVE SLEEP APNEA? :NO ANY RECENT HEAD INJURY? :NO DO YOU HAVE ANY NEW INFECTIONS? :NO IS THERE A CHANCE YOU COULD BE ? :NO ARE YOU BREAST FEEDING? :NO WHEN DID YOU LAST EAT? : -04/20/201999 WHEN DID YOU LAST DRINK? : -04/21/20599 WHAT DID YOU LAST DRINK? : GREEN TEA NAME OF PERSON DRIVING YOU HOME? : -BRAD () DO YOU HAVE ANY OTHER QUESTIONS OR CONCERNS? : -NO CURRENT MEDICATIONS TAKING PINDOLOL 5 MG TABLET 1 TABLET ORALLY QID, NOTES: 04/21/20599 TAKING POTASSIUM CHLORIDE 10 MEQ (PRT) TABLET EXTENDED RELEASE 1 TABLET ORALLY TWICE DAILY, NOTES: 04/21/20599 TAKING METFORMIN HCL ER 750 MG TABLET EXTENDED RELEASE 24 HOUR ORALLY TWICE A DAY, NOTES: 04/20/20 08 TAKING ATENOLOL 50 MG TABLET 1 TABLET ORALLY BID, NOTES: 04/21/20599 TAKING LEVOTHYROXINE SODIUM 50 MCG TABLET 1 TABLET ORALLY ONCE A DAY, NOTES: 04/21/20599 TAKING TRIAMTERENE-HCTZ 37.5-25 MG TABLET 1 TABLET IN THE MORNING ORALLY ONCE A DAY, NOTES: 04/21/20599 TAKING FLONASE ALLERGY RELIEF 50 MCG/ACT SUSPENSION 1 SPRAY IN EACH NOSTRIL NASALLY ONCE A DAY, NOTES: 04/21/20599 TAKING MAY HAVE - - MEDICAL MARIJUANA DIRECTED, NOTES: 04/21/20599 TAKING CYCLOBENZAPRINE HCL 10 MG TABLET 1 TABLET NEEDED ORALLY Q6-8H PRN FOR SEVERE MUSCLE SPASM PAIN #45 TAB. SHOULD LAST 30 DAYS, NOTES: 04/19/20 TAKING TOPAMAX 100 MG TABLET 1 TABLET ORALLY FOR PAIN TWICE A DAY, NOTES: 04/21/20599 TAKING LEVEMIR 100 UNIT/ML SOLUTION 16 UNITS SUBCUTANEOUS BID, NOTES: 04/20/201999 TAKING PERCOCET 7.5-325 MG TABLET 1 ORALLY Q6H PRN MDD4, NOTES: 04/21/20599 TAKING AMITRIPTYLINE HCL 50 MG TABLET 3 ORALLY FOR PAIN ONCE A DAY, NOTES: 04/20/201999 TAKING KETOROLAC TROMETHAMINE 10 MG TABLET 1 TABLET WITH FOOD OR MILK NEEDED ORALLY Q6H PRN FOR SEVERE PAIN MDD4, NOTES: 04/19/20 TAKING COLACE 100 MG CAPSULE 1 CAPSULE NEEDED ORALLY ONCE A DAY, NOTES: 04/21/20599 TAKING BYDUREON 2 MG PEN-INJECTOR DIRECTED SUBCUTANEOUS , NOTES: 1 WEEK AGO NOT-TAKING NARCAN 4 MG/0.1ML LIQUID DIRECTED NASALLY FOR OPIOID OVERDOSE, NOTES: NEVER NOT-TAKING FENTANYL 12 MCG/HR PATCH 72 HOUR 1 PATCH TO SKIN TRANSDERMAL Q72 HR=MDD, NOTES: NOT TAKING MEDICATION LIST REVIEWED AND RECONCILED WITH THE PATIENT PAST MEDICAL HISTORY DM, HTN, CHRONIC PAIN , THYROID DISEASE, GERD, MIGRANES LEFT KNEE PAIN RIGHT SHOULDER LABRIUM TEAR FUSION AT 3-4 C ALLERGIES AZITHROMYCIN: LIP SWELLING - ALLERGY SUMATRIPTAN: FACIAL SWELLING - ALLERGY PROPOXYPHENE: PRICKLY FEELING, RASH, SOB - ALLERGY SURGICAL HISTORY FUSION C3-C4 1994 3 SURGURIES TO LEFT KNEE 1993 FAMILY HISTORY FATHER: 51 YRS, DIAGNOSED WITH DIABETES MOTHER: 50 YRS, OTHER MALIGNANT NEOPLASM OF UNSPECIFIED SITE 3 BROTHER(S) , 2 SISTER(S) . 1 SON(S) - HEALTHY. ON BROTHER R\/T PANCREATIC CANCER, ONE SISTER WITH MS \NBROTHER - COMPLICATIONS FROM AGENT ORANGE\NBROTHER - BLOOD CLOT. SOCIAL HISTORY GENERAL: TOBACCO USE ARE YOU A:NONSMOKER LATEX QUESTIONNAIRE LATEX ALLERGY : HAVE YOU EVER DEVELOPED ANY TYPE OF REACTION AFTER HANDLING LATEX PRODUCTS SUCH RUBBER GLOVES, CONDOMS, DIAPHRAGMS, BALLOONS, SOCKS, OR UNDERWEAR?NO LATEX ALLERGY : HAVE YOU EVER DEVELOPED ANY TYPE OF REACTION DURING OR AFTER DENTAL APPOINTMENT, VAGINAL/RECTAL EXAMINATION, SURGICAL PROCEDURE, OR ANY OTHER EXPOSURE?NO DATE ASKED : 02/27/2020 LATEX RISK : HAVE YOU EVER HAD ANY DIFFICULTY BREATHING OR HIVES AFTER EATING OR HANDLING ANY FRUITS, OR VEGETABLES; SUCH KIWI, BANANAS, STONE FRUITS, OR CHESTNUTSNO LATEX RISK : DO YOU HAVE A PREVIOUS PERSONAL HISTORY OF MORE THAN NINE SURGERIES, SPINA BIFIDA, OR REPEATED CATHERIZATIONS? NO LATEX RISK : ARE YOU FREQUENTLY EXPOSED TO LATEX PRODUCTS IN YOUR OCCUPATION?NO LUNG CANCER SCREENING SMOKING STATUS:NON SMOKER ALCOHOL SCREENING DID YOU HAVE A DRINK CONTAINING ALCOHOL IN THE PAST YEAR?NO POINTS0 INTERPRETATIONNEGATIVE RECREATIONAL DRUG USE DRUG USE?NO HAS PRESCRIPTION FOR MEDICAL MARIJUANA. CAFFEINE CAFFEINE USE?NO HIV / HEP-C SCREENING HIV TEST OFFERED TO PATIENT:YES DATE OFFERED:01/17/2018 TEST ACCEPTED:NO HEP-C TEST OFFERED TO PATIENT:YES DATE OFFERED:01/17/2018 REASON:PATIENT DECLINED TEST ACCEPTED:NO REASON:PATIENT DECLINED BROCHURE PROVIDED TO PATIENTNO JEWISH [id number] ZOROASTRIANISM LANGUAGE LANGUAGES SPOKEN:NIGERIAN LEARNING BARRIERS / SPECIAL NEEDS CHANGE FROM LAST VISIT?NO BARRIERS TO LEARNING?NO HEARING IMPAIRED?NO VISION IMPAIRED?YES COGNITIVELY IMPAIRED?NO :CORRECTIVE LENSES READINESS TO LEARN?YES LEARNING PREFERENCES?YES :BOOKLETS, HANDOUTS LEARNING CAPABILITIES PRESENT?YES EMOTIONAL BARRIERS?NO SPECIAL DEVICES?YES :CANE, WHEELCHAIR DOMESTIC VIOLENCE DO YOU FEEL SAFE IN YOUR ENVIRONMENT?YES NEW PATIENT PAIN DIARY TODAY'S VISITNOTES 02/27/2020 PATIENT DESCRIBES PAIN :ACHING, BURNING, HAVE IT ALL THE TIME FROM 0-10, WHAT LEVEL IS YOUR PAIN TODAY?7 PAIN CLINIC PFS, CLERGY, PUBLIC HEALTH REFERRALS PFS REFERRAL NEEDED?NO CLERGY REFERRAL NEEDED?NO PUBLIC HEALTH REFERRAL NEEDED?NO WAS THE PROVIDER NOTIFIED OF ANY PERTINENT INFO?YES N/A HAS THE PATIENT BEEN EDUCATED REGARDING HIS/HER PLAN OF CARE?YES HAS THE PATIENT BEEN EDUCATED REGARDING PAIN, THE RISK FOR PAIN, THE IMPORTANCE OF EFFECTIVE PAIN MANAGEMENT, AND THE PAIN ASSESSMENT PROCESS?YES ADVANCE DIRECTIVE ADVANCE DIRECTIVE DISCUSSED WITH PATIENT:YES HCP - SHE JI () PAT DONE 4-29 DS. HOSPITALIZATION/MAJOR DIAGNOSTIC PROCEDURE SURGERIES HYPERTENSION HEAD INJURY 03/1986 VITAL SIGNS WT 329.0 LBS, HT 75 IN, BMI 41.12 INDEX, BP 127/79 MM HG, HR 95 /MIN, RR 18 /MIN, TEMP 96.0 F, OXYGEN SAT % 95%, SAFE IN ENV? (Y/N) YES, NA INITIALS AW 1043, REVIEWED BY: THEODORE. EXAMINATION GENERAL EXAMINATION: THE PATIENT IS ALERT, ORIENTED TIMES THREE AND COOPERATIVE. HEART SHOWS REGULAR RHYTHM, NO MURMURS AND NO GALLOPS. LUNGS ARE CLEAR TO AUSCULTATION. ASSESSMENTS CHRONIC MIGRAINE - G43.709 (PRIMARY) TREATMENT CHRONIC MIGRAINE MEDICATION: BENADRYL TAB 25MG ORALLY (DIPHENHYDRAMINE)TO MCKEE RN 04/21/2020 11:24:14 AM > LOT #[id number] EXP. 09/03/22. TO MKCEE RN 04/21/2020 11:32:28 AM > GIVEN. MEDICATION: VALIUM TAB 10MG ORALLY (DIAZEPAM)TO MCKEE RN 04/21/2020 11:25:14 AM > LOT #[id number]. EXP. 12/05. TO MCKEE RN 04/21/2020 11:32:59 AM > GIVEN. MEDICATION: OXYCODONE HCL TAB 10MG ORALLYTO MCKEE RN 04/21/2020 11:26:11 AM > LOT #[id number]. EXP. 11/2021. TO MCKEE RN 04/21/2020 11:33:19 AM > GIVEN. PROCEDURES PAIN NURSING RECORD PRE-PROCEDURE IV SITE N/A, PRE-PROCEDURE ORAL MEDICATIONS INSTRUCTED REGARDING POTENTIAL DIZZINESS AND DROWSINESS AFTER SEDATION MEDICATIONS. VERBALIZED UNDERSTANDING. PROCEDURE IN ROOM N/A, PHYSICIAN IN ROOM 1203, START 1212, FINISH 1227, PHYSICIAN OUT OF ROOM 1231, OUT OF ROOM 1240, STEROID N/A, O2 N/A, ECG N/A, PATIENT SHIELDED NO, SAFETY STRAP NO, PREP ALCOHOL, IV INFUSED N/A, DRESSING N/A LOC: IN ROOM N/A, PHYSICIAN IN ROOM 1203, START 1212, FINISH 1227, PHYSICIAN OUT OF ROOM 1231, OUT OF ROOM 1240, STEROID N/A, O2 N/A, ECG N/A, PATIENT SHIELDED NO, SAFETY STRAP NO, PREP ALCOHOL, IV INFUSED N/A, DRESSING N/A RESP: TO MCKEE RN 04/21/2020 12:16:24 PM > , 1. ALERT, ORIENTED COLOR: TO MCKEE RN 04/21/2020 12:16:38 PM > , 1. PINK SKIN: TO MCKEE RN 04/21/2020 12:16:44 PM > , 1. WARM, DRY POSITION: TO MCKEE RN 04/21/2020 12:16:52 PM > , 2. SUPINE VITALS: 1232 124/58 100-16 95%. Ishmael MCKEE EXTRUSION FORMER: POST PAIN /10, DRESSING SITE NO DRESSING, IV N/A, GAIT STEADY, TEACHING COMPLETED, PATIENT ACKNOWLEDGES UNDERSTANDING YES, PATIENT DISCHARGED AT 1243 PN BOTOX INJECTIONS SUBSEQUENT INJECTIONS PRE PROCEDURE DIAGNOSIS CHRONIC MIGRAINE HEADACHES POST PROCEDURE DIAGNOSIS CHRONIC MIGRAINE HEADACHES PROCEDURE BOTOX INJECTION AT THE HEAD, NECK AND SHOULDERS SURGEON DR. JAVON LEONARDO FILTERING MACHINE TENDER NONE ANESTHESIA NONE PRE PROCEDURE NOTE THE PATIENT WITH HISTORY OF CHRONIC MIGRAINE HEADACHES. I EVALUATED THE PATIENT AND REVIEWED THE CHART. I WENT OVER THE RISKS, ALTERNATIVES, AND BENEFITS ASSOCIATED WITH THIS PROCEDURE. THE PATIENT WOULD LIKE TO PROCEED AND GAVE CONSENT TO PERFORM THE PROCEDURE. THE PATIENT DENIES UNEXPLAINABLE WEIGHT LOSS, FEVER, CHILLS, OR NEW CHANGES IN URINARY OR BOWEL CONTROL. THE PATIENT DID A BOTOX INJECTION AT THE HEAD, NECK AND SHOULDERS 3 MONTHS AGO. THE PATIENT STATES THAT BEFORE THE FIRST INJECTION, HE WAS HAVING HEADACHES CONSTANTLY THAT WOULD CAUSE NAUSEA AND VISUAL PROBLEMS AND HE WAS CONFINED TO A DARK ROOM. AFTER THAT INJECTION, HE CAN FUNCTION AND CAN PERFORM ACTIVITIES WITH HIS FAMILY. HE DOES NOT FEEL NAUSEA AND DOES NOT HAVE VISUAL PROBLEMS. HE STATES THAT THE PAIN STILL PERSISTS; HOWEVER, IT IS LESS IN INTENSITY. BEFORE THE INJECTIONS, HE HAD 10/10 PAIN AND AFTER IT WENT DOWN TO A 4/10. THE PATIENT SAID THAT THE USE OF BOTOX HAS REDUCED SIGNIFICANTLY THE SEVERITY OF THE HEADACHES. THE PATIENT WOULD LIKE TO PROCEED WITH THIS PROCEDURE AGAIN TODAY DESCRIPTION OF PROCEDURE THE PATIENT WAS BROUGHT TO THE PROCEDURE ROOM AND PLACED IN THE SUPINE POSITION. I CHECKED LATERALITY AND THE AREAS WHERE THE PROCEDURE WAS GOING TO BE PERFORMED WITH THE PATIENT AND THE SUPPORTING STAFF AT THE MOMENT OF THE TIME OUT IN THE PROCEDURE ROOM. FOR THE PROCEDURE I USED A SOLUTION OF 5 UNITS OF BOTOX PER EACH 0.1 ML OF THE SOLUTION. I USED A 30-GAUGE NEEDLE TO INJECT THE SOLUTION AT THE SELECTED LOCATIONS. I INJECTED FIRST THE RIGHT AND LEFT IGNITION MECHANIC MUSCLES. THE LANDMARK FOR BOTH INJECTIONS WAS APPROXIMATELY 1 CM ABOVE THE SUPERIOR MEDIAL EDGE OF THE EYEBROW. AFTER THESE TWO INJECTIONS, I INJECTED THE PROCERUS MUSCLE AT THE MIDLINE POINT BETWEEN THESE FIRST TWO INJECTIONS. THEN I PROCEEDED TO INJECT THE RIGHT AND LEFT FRONTALIS MUSCLE. TWO INJECTIONS WERE DONE IN EACH SIDE. THE FIRST INJECTION WAS DONE APPROXIMATELY 2 CM ABOVE THE FIRST INJECTION OF THE IGNITION MECHANIC. THE SECOND INJECTION WAS DONE APPROXIMATELY 1.5 CM LATERAL TO THIS FIST INJECTION OF THE FRONTALIS OF EACH SIDE. AFTER THE INJECTIONS OVER THE FOREHEAD WERE DONE, THE PATIENT'S HEAD WAS TURNED TO THE LEFT SIDE AND WE STARTED TO WORK WITH THE RIGHT TEMPORALIS MUSCLE. FIRST INJECTION WAS DONE IN A VERTICAL LINE OF THE TRAGUS APPROXIMATELY 3 CM ABOVE THE TRAGUS. THE SECOND INJECTION WAS DONE APPROXIMATELY 2 CM ABOVE THE FIRST INJECTION. THE THIRD INJECTION WAS DONE APPROXIMATELY 1 CM FRONTWARD FROM THIS VERTICAL LINE CREATED AT THE LEVEL OF THE TRAGUS, SENIOR CARE BETWEEN THESE TWO INJECTIONS. THE FOURTH INJECTION WAS DONE APPROXIMATELY 1.5 CM BACK FROM THE SECOND INJECTION TO THE TEMPORALIS IN LINE TO THE MIDPORTION OF THE EAR. THEN, WE PROCEEDED TO INJECT THE LEFT TEMPORALIS MUSCLE. WE CLEANED THE AREA WITH ALCOHOL AND PROCEEDED TO PERFORM THE SAME FOR INJECTIONS DESCRIBED ABOVE BUT IN THE LEFT TEMPORALIS MUSCLE USING THE SAME LANDMARKS. AFTER THESE INJECTIONS WERE DONE, THE PATIENT WAS SEATED. FIRST, WE STARTED TO INJECT THE LEFT AND RIGHT OCCIPITALIS MUSCLE. I INJECTED AT THE FOLLOWING PLACES IN THE RIGHT AND LEFT MUSCLE. THE FIRST INJECTION WAS DONE AT THE MIDPOINT POSITION BETWEEN THE MASTOID PROCESS AND THE INION OF THE OCCIPITAL PROTUBERANCE. THE SECOND INJECTION WAS DONE APPROXIMATELY 1.5 CM SUPERIOR AND LATERAL OF THIS POINT. THE THIRD INJECTION WAS DONE APPROXIMATELY 1.5 CM SUPERIOR AND MEDIAL TO THIS FIRST INJECTION. NEXT, I PROCEEDED TO INJECT THE RIGHT AND LEFT PARASPINAL MUSCLES. LANDMARK OF THE INJECTION WERE APPROXIMATELY: FIRST INJECTION 3 CM BELOW THE INION AND 1 CM LATERAL TO THE MIDLINE AND SECOND INJECTION AT EACH SIDE WAS DONE APPROXIMATELY 1.5 CM SUPERIOR AND LATERAL OF THE FIRST INJECTION. THE LAST GROUP OF INJECTIONS WAS DONE OVER THE RIGHT AND LEFT TRAPEZIUS MUSCLE OVER THE SHOULDER AREA. THE FIRST INJECTION WAS DONE AT THE MIDPOINT BETWEEN THE INFLECTION POINT BETWEEN THE NECK AND SHOULDER AND THE ACROMION. THE SECOND AND THIRD INJECTIONS WERE DONE APPROXIMATELY 2.5 CM LATERAL AND MEDIAL FROM THIS FIRST INJECTION. SAME TARGETS WERE USED IN THE RIGHT AND LEFT SIDE. FINALLY, I INJECTED 2.5 UNITS OF BOTOX AT 4 POINTS IN THE SUPERIOR CRANIAL AREA OF THE PATIENT, WHICH HAS HELPED HIM IN THE PAST. IN TOTAL, I INJECTED 165 UNITS OF BOTOX. THE MEDICATION WAS VERIFIED WITH THE NURSE. PROCEDURE WAS DONE WITHOUT EVIDENCE OF PARESTHESIA, PNEUMOTHORAX, OR ANY COMPLICATIONS. THE PATIENT TOLERATED THE PROCEDURE VERY WELL. EBL LESS THAN 5 ML. THE PATIENT WAS SENT TO THE RECOVERY ROOM FOR OBSERVATIONS. INJECTIONS WERE DONE AFTER CLEANING WITH ALCOHOL, USING ASEPTIC TECHNIQUES POST PROCEDURE NOTE THE PROCEDURE WAS DISCUSSED WITH THE PATIENT. THE PATIENT WILL BE SEEN IN A FOLLOW UP IN THE NEXT FEW WEEKS. I AM LOOKING FOR LONG LASTING PAIN RELIEF FOR THE PATIENT WITH THIS INTERVENTION. INSTRUCTIONS WERE GIVEN, QUESTIONS WERE ANSWERED, AND THE PATIENT EXPRESSED UNDERSTANDING AND AGREED WITH THE PLAN. I, ALFREDO JIMENEZ, DOCUMENTED THE ABOVE INFORMATION ACTING A SCRIBE FOR DR. LEONARDO. I HAVE REVIEWED THE ABOVE DOCUMENT, WRITTEN BY ALFREDO JIMENEZ, GRINDING MACHINE TENDER, AND I VERIFY THAT IT IS ACCURATE PN WORKMANS' COMP OPINION IN YOUR OPINION, WAS THE INCIDENT THAT THE PATIENT DESCRIBED THE COMPETENT MEDICAL CAUSE OF THIS INJURY/ILLNESS? YES ARE THE PATIENT'S COMPLAINTS CONSISTENT WITH HIS/HER HISTORY OF THE INJURY/ILLNESS? YES IS THE PATIENT'S HISTORY OF THE INJURY/ILLNESS CONSISTENT WITH YOUR OBJECTIVE FINDING? YES WHAT IS THE PERCENTAGE OF TEMPORARY IMPAIRMENT? TOTAL = 100% . IS THE PATIENT WORKING? NO . DOCTOR ON SITE: JAVON VALDEZ MD PROCEDURE CODES 09261 CHEMODENERV MUSC MIGRAINE DISPOSITION & COMMUNICATION FOLLOW UP F/UP WITH MINE SAFETY MANAGER (REASON: W/C POST BOTOX ) ELECTRONICALLY SIGNED BY JAVON LEONARDO MD, MD ON 04/21/2020 AT 04:53 PM EDT DISCLAIMER : THIS IS A VISIT SUMMARY EXTRACTED FROM THE [employer] CHART. IT IS NOT A COPY OF THE [employer] PROGRESS NOTE. NAHEED
== END ==
LOC: M PAIN 10:45
PROVIDERS: ATTEND Anesthesiology
DX: G43.709 Chronic migraine without aura, not intractable, without status migrainosus (principal)
CPT/HCPCS: 64615; J0585

== ENCOUNTER 2020-05-18 11:50 | Day surgery (SDC) | payer OTHER ==
[~2020-05-18 11:50] MED LIST changes: -BOTOX THERAPEUTIC 100 UNIT VIAL (J0585 PER 1 UNIT) IM ONE; -diazePAM 5 MG TAB As Ordered ONE; -diphenhydrAMINE 25MG CAP As Ordered ONE; -oxyCODONE 5MG TAB As Ordered ONE
== END 2020-05-18 13:15 | disposition home or self-care (01) ==
LOC: M SDC 11:50
PROVIDERS: ATTEND Anesthesiology
DX: M51.36 Other intervertebral disc degeneration, lumbar region (principal); M46.96 Unspecified inflammatory spondylopathy, lumbar region; M48.061 Spinal stenosis, lumbar region without neurogenic claudication; M51.17 Intervertebral disc disorders with radiculopathy, lumbosacral region

== ENCOUNTER → 2020-05-20 | Outpatient (CLI) | payer OTHER | LOC: M LABSMTC 13:20 | PROVIDERS: ATTEND Orthopaedic Surgery | DX: Z11.59 Encounter for screening for other viral diseases (principal) ==

== ENCOUNTER → 2020-08-02 | Outpatient (CLI) | payer OTHER ==
--- NOTE | 2020-08-09 16:27 | ECWPNPC ---
PATIENT NAME: ALEX JI : 1965 GENDER: MALE VISIT DATE: 08/02/2020 DISCHARGE DATE: 08/02/20929 VISIT LOCKED DATE TIME: PHYSICIAN: JAVON LEONARDO MD RESOURCE: JAVON LEONARDO MD REASON FOR APPOINTMENT 1. W/C NECK/BACK HISTORY OF PRESENT ILLNESS GENERAL: 54-YEAR-OLD MALE PATIENT WITH A HISTORY OF CHRONIC LOW BACK AND BILATERAL LEG PAIN. THE PATIENT DESCRIBES THE PAIN ACHING, SHARP, SHOOTING AND CONTINUOUS WITH A PAIN SCORE RANGING FROM 4-9/10 DEPENDING ON PHYSICAL ACTIVITY IN THE BACK WITH RADIATION TOWARDS BOTH LEGS WITH A LITTLE MORE RADIATION TOWARDS THE RIGHT FOOT. THE PATIENT IS HAVING DIFFICULTY WALKING. THIS IS AFFECTING HIS ACTIVITIES OF DAILY LIVING SUCH COOKING AND CLEANING HIS HOUSE. THE PATIENT WAS HURT ON A WORK RELATED INJURY IN 04/13/1986. THE PATIENT IS EXPERIENCING AN LOW QUALITY OF LIFE DUE TO THE PAIN AND THE MEDICATIONS ARE NOT ENOUGH TO HELP WITH THE PAIN. PATIENT DENIES UNEXPLAINABLE WEIGHT LOSS, FEVER, CHILLS, NEW CHANGES ON HIS URINARY OR BOWEL CONTROL. FALL RISK SCREENING: SCREENING :NO FALLS REPORTED IN THE LAST YEAR FALL WITH INJURY EVALUATED BY MD. STATES HE INJURED RIGHT SHOULDER AND LEFT KNEE. PAIN SCREENING: PATIENT HAS A COMPLAINT OF ACUTE OR CHRONIC PAIN :YES LOCATION OF PAIN:NECK, UPPER BACK, MID BACK, LOW BACK, LEFT HIP, RIGHT HIP, LEG(S), FEET INTENSITY OF PAIN (SCALE OF 1 TO 10):7 WHAT DOES YOUR PAIN FEEL LIKE:CONTINOUS, SHARP, SHOOTING DURATION:CONTINOUS, CONSTANT PAIN IS INCREASED BY:ACTIVITIES PAIN IS DECREASED BY:USE OF PAIN MEDICATIONS, OTHERS HEAT TREATMENT/MEDICATIONS USED TO MANAGE PAIN:OPIOIDS LEVEL OF RELIEF FROM PAIN TREATMENTS IN THE PAST:25% PAIN HAS INTERFERED WITH THE FOLLOWING:MOOD, WALKING ABILITY, EMPLOYMENT, SLEEP NURSING NOTE: -. PAIN CENTER INTAKE QUESTIONS: DO YOU HAVE A HISTORY OF MRSA? :NO DO YOU TAKE A BLOOD THINNERS? :NO DO YOU HAVE ANY BLEEDING DISORDERS? :NO ANY NEW NUMBNESS OR WEAKNESS IN YOUR LEGS OR ARMS? :YES INTERMITTENT ANY PACEMAKER,DEFIBRILLATOR, OR DORSAL COLUMN STIMULATOR? :NO DO YOU HAVE ANY RASHES OR OPEN SORES? :NO ARE YOU ALLERGIC TO IV DYE? :NO ARE YOU DIABETIC? :YES ANY NEW PROBLEMS WITH YOUR MEDICATIONS? :NO HAVE YOU RECEIVED A VACCINE IN THE PAST 30 DAYS? :NO DO YOU PLAN TO RECEIVE A VACCINE IN THE NEXT 21 DAYS? :NO DO YOU NEED ANY PRESCRIPTION? :NO DO YOU TAKE ANY IMMUNOSUPPRESSIVE MEDICATIONS? :NO ANY HISTORY OF SEIZURES? :NO ANY HISTORY OF CARDIAC ISSUES OR EVENTS? :NO DO YOU HAVE SLEEP APNEA? :NO ANY RECENT HEAD INJURY? :NO DO YOU HAVE ANY NEW INFECTIONS? :NO IS THERE A CHANCE YOU COULD BE ? :NO ARE YOU BREAST FEEDING? :NO WHEN DID YOU LAST EAT? : - WHEN DID YOU LAST DRINK? : - WHAT DID YOU LAST DRINK? : - NAME OF PERSON DRIVING YOU HOME? : - DO YOU HAVE ANY OTHER QUESTIONS OR CONCERNS? : - CURRENT MEDICATIONS TAKING PINDOLOL 5 MG TABLET 1 TABLET ORALLY QID TAKING POTASSIUM CHLORIDE 10 MEQ (PRT) TABLET EXTENDED RELEASE 1 TABLET ORALLY TWICE DAILY TAKING METFORMIN HCL ER 750 MG TABLET EXTENDED RELEASE 24 HOUR ORALLY TWICE A DAY TAKING ATENOLOL 50 MG TABLET 1 TABLET ORALLY BID TAKING LEVOTHYROXINE SODIUM 50 MCG TABLET 1 TABLET ORALLY ONCE A DAY TAKING TRIAMTERENE-HCTZ 37.5-25 MG TABLET 1 TABLET IN THE MORNING ORALLY ONCE A DAY TAKING FLONASE ALLERGY RELIEF 50 MCG/ACT SUSPENSION 1 SPRAY IN EACH NOSTRIL NASALLY ONCE A DAY TAKING MAY HAVE - - MEDICAL MARIJUANA DIRECTED TAKING CYCLOBENZAPRINE HCL 10 MG TABLET 1 TABLET NEEDED ORALLY Q6-8H PRN FOR SEVERE MUSCLE SPASM PAIN #45 TAB. SHOULD LAST 30 DAYS TAKING TOPAMAX 100 MG TABLET 1 TABLET ORALLY FOR PAIN TWICE A DAY TAKING LEVEMIR 100 UNIT/ML SOLUTION 16 UNITS SUBCUTANEOUS BID TAKING KETOROLAC TROMETHAMINE 10 MG TABLET 1 TABLET WITH FOOD OR MILK NEEDED ORALLY Q6H PRN FOR SEVERE PAIN MDD4 TAKING COLACE 100 MG CAPSULE 1 CAPSULE NEEDED ORALLY ONCE A DAY TAKING BYDUREON 2 MG PEN-INJECTOR DIRECTED SUBCUTANEOUS TAKING PERCOCET 5-325 MG TABLET 1 ORALLY Q6H PRN MDD4 TAKING AMITRIPTYLINE HCL 50 MG TABLET 3 ORALLY FOR PAIN ONCE A DAY NOT-TAKING NARCAN 4 MG/0.1ML LIQUID DIRECTED NASALLY FOR OPIOID OVERDOSE, NOTES: NEVER NOT-TAKING FENTANYL 12 MCG/HR PATCH 72 HOUR 1 PATCH TO SKIN TRANSDERMAL Q72 HR=MDD, NOTES: NOT TAKING MEDICATION LIST REVIEWED AND RECONCILED WITH THE PATIENT PAST MEDICAL HISTORY DM, HTN, CHRONIC PAIN , THYROID DISEASE, GERD, MIGRANES LEFT KNEE PAIN RIGHT SHOULDER LABRIUM TEAR FUSION AT 3-4 C ALLERGIES AZITHROMYCIN: LIP SWELLING - ALLERGY SUMATRIPTAN: FACIAL SWELLING - ALLERGY PROPOXYPHENE: PRICKLY FEELING, RASH, SOB - ALLERGY SURGICAL HISTORY FUSION C3-C4 1994 3 SURGURIES TO LEFT KNEE 1993 LEFT KNEE ARTHROSCOPY 05/2020 FAMILY HISTORY FATHER: 51 YRS, DIAGNOSED WITH DIABETES MOTHER: 50 YRS, OTHER MALIGNANT NEOPLASM OF UNSPECIFIED SITE 3 BROTHER(S) , 2 SISTER(S) . 1 SON(S) - HEALTHY. ON BROTHER R\/T PANCREATIC CANCER, ONE SISTER WITH MS \NBROTHER - COMPLICATIONS FROM AGENT ORANGE\NBROTHER - BLOOD CLOT. SOCIAL HISTORY GENERAL: TOBACCO USE ARE YOU A:NONSMOKER LATEX QUESTIONNAIRE LATEX ALLERGY : HAVE YOU EVER DEVELOPED ANY TYPE OF REACTION AFTER HANDLING LATEX PRODUCTS SUCH RUBBER GLOVES, CONDOMS, DIAPHRAGMS, BALLOONS, SOCKS, OR UNDERWEAR?NO LATEX ALLERGY : HAVE YOU EVER DEVELOPED ANY TYPE OF REACTION DURING OR AFTER DENTAL APPOINTMENT, VAGINAL/RECTAL EXAMINATION, SURGICAL PROCEDURE, OR ANY OTHER EXPOSURE?NO LATEX RISK : HAVE YOU EVER HAD ANY DIFFICULTY BREATHING OR HIVES AFTER EATING OR HANDLING ANY FRUITS, OR VEGETABLES; SUCH KIWI, BANANAS, STONE FRUITS, OR CHESTNUTSNO LATEX RISK : DO YOU HAVE A PREVIOUS PERSONAL HISTORY OF MORE THAN NINE SURGERIES, SPINA BIFIDA, OR REPEATED CATHERIZATIONS? NO LATEX RISK : ARE YOU FREQUENTLY EXPOSED TO LATEX PRODUCTS IN YOUR OCCUPATION?NO DATE ASKED : 08/02/2020 LUNG CANCER SCREENING SMOKING STATUS:NON SMOKER ALCOHOL SCREENING DID YOU HAVE A DRINK CONTAINING ALCOHOL IN THE PAST YEAR?NO POINTS0 INTERPRETATIONNEGATIVE RECREATIONAL DRUG USE DRUG USE?NO HAS PRESCRIPTION FOR MEDICAL MARIJUANA. CAFFEINE CAFFEINE USE?NO HIV / HEP-C SCREENING HIV TEST OFFERED TO PATIENT:YES DATE OFFERED:01/17/2018 TEST ACCEPTED:NO HEP-C TEST OFFERED TO PATIENT:YES DATE OFFERED:01/17/2018 REASON:PATIENT DECLINED TEST ACCEPTED:NO REASON:PATIENT DECLINED BROCHURE PROVIDED TO PATIENTNO ORTHODOXY [id number] PENTECOSTALISM LANGUAGE LANGUAGES SPOKEN:KYRGYZ LEARNING BARRIERS / SPECIAL NEEDS CHANGE FROM LAST VISIT?NO BARRIERS TO LEARNING?NO HEARING IMPAIRED?NO VISION IMPAIRED?YES :CORRECTIVE LENSES COGNITIVELY IMPAIRED?NO READINESS TO LEARN?YES LEARNING PREFERENCES?YES :BOOKLETS, HANDOUTS LEARNING CAPABILITIES PRESENT?YES EMOTIONAL BARRIERS?NO SPECIAL DEVICES?YES :CANE, WHEELCHAIR SAMPLE WRAPPER NEEDED?NO DOMESTIC VIOLENCE DO YOU FEEL SAFE IN YOUR ENVIRONMENT?YES PAIN CLINIC PFS, CLERGY, PUBLIC HEALTH REFERRALS PFS REFERRAL NEEDED?NO CLERGY REFERRAL NEEDED?NO PUBLIC HEALTH REFERRAL NEEDED?NO WAS THE PROVIDER NOTIFIED OF ANY PERTINENT INFO?YES N/A HAS THE PATIENT BEEN EDUCATED REGARDING HIS/HER PLAN OF CARE?YES HAS THE PATIENT BEEN EDUCATED REGARDING PAIN, THE RISK FOR PAIN, THE IMPORTANCE OF EFFECTIVE PAIN MANAGEMENT, AND THE PAIN ASSESSMENT PROCESS?YES ADVANCE DIRECTIVE ADVANCE DIRECTIVE DISCUSSED WITH PATIENT:YES HCP - SHE JI () PAT DONE 02-10 DS. HOSPITALIZATION/MAJOR DIAGNOSTIC PROCEDURE SURGERIES HYPERTENSION HEAD INJURY 03/1986 REVIEW OF SYSTEMS CONSTITUTIONAL: ANY RECENT FEVER NO . CHILLS NO . WEIGHT CHANGE OF UNKNOWN REASONS NO . GASTROENTEROLOGY: NEW UNEXPLAINABLE CHANGES IN BOWEL CONTROL NO . CONSTIPATION NO . GENITOURINARY: ANY NEW CHANGE IN BLADDER CONTROL? NO . NEUROLOGY: NEW ONSET DIZZINESS OR NEUROLOGICAL CHANGES NOT MENTIONED NO . NEW NUMBNESS OR PAIN PATTERNS NOT MENTIONED AND PERTINENT TO TODAY'S VISIT NO . CARDIOLOGY: NEW CHEST PRESSURE NO . NEW CHEST PAIN NO . RESPIRATORY: UNEXPLAINABLE COUGH NO . NEW SHORTNESS OF BREATH NO . VITAL SIGNS WT 317 LBS, HT 78 IN, BMI 36.63 INDEX, BP 130/70 MM HG, HR 80 /MIN, RR 18 /MIN, TEMP 97.5 F, OXYGEN SAT % 98, SAFE IN ENV? (Y/N) YES, NA INITIALS KG, REVIEWED BY: LETTY. EXAMINATION GENERAL EXAMINATION: THE PATIENT IS ALERT, ORIENTED TIMES THREE AND COOPERATIVE. HEART SHOWS REGULAR RHYTHM, NO MURMURS AND NO GALLOPS. LUNGS ARE CLEAR TO AUSCULTATION. THE PATIENT HAS A LOT OF DIFFICULT STANDING. THE PATIENT HAS AN UNSTEADY GAIT. THE PATIENT IS HOLDING A CANE WITH HIS RIGHT HAND. STRAIGHT LEG RAISE IS POSITIVE FOR RADICULOPATHY OVER THE RIGHT LEG AT 20 DEGREE. MRI OF THE LUMBAR DATED 03/18/2020 SHOWS A RIGHT SEVERE STENOSIS AT L4-L5. ASSESSMENTS INTERVERTEBRAL DISC DISORDER WITH RADICULOPATHY OF LUMBAR REGION - M51.16 (PRIMARY) TREATMENT INTERVERTEBRAL DISC DISORDER WITH RADICULOPATHY OF LUMBAR REGION CLINICAL NOTES: I DISCUSSED ALTERNATIVES WITH MR. JI. I FEEL THAT WE SHOULD DO AN EPIDURAL STEROID INJECTION AT L4-L5 TO HELP THE PATIENT. I WILL REQUEST AUTHORIZATION, BOOK AFTER APPROVED. THE PATIENT UNDERSTANDS AND AGREES WITH THE PLAN. I, ALFREDO JIMENEZ, DOCUMENTED THE ABOVE INFORMATION ACTING A SCRIBE FOR DR. LEONARDO. I HAVE REVIEWED THE ABOVE DOCUMENT, WRITTEN BY ALFREDO JIMENEZ, AUTOMOTIVE PRODUCTION WORKER, AND I VERIFY THAT IT IS ACCURATE. PROCEDURES PN WORKMANS' COMP OPINION IN YOUR OPINION, WAS THE INCIDENT THAT THE PATIENT DESCRIBED THE COMPETENT MEDICAL CAUSE OF THIS INJURY/ILLNESS? YES ARE THE PATIENT'S COMPLAINTS CONSISTENT WITH HIS/HER HISTORY OF THE INJURY/ILLNESS? YES IS THE PATIENT'S HISTORY OF THE INJURY/ILLNESS CONSISTENT WITH YOUR OBJECTIVE FINDING? YES WHAT IS THE PERCENTAGE OF TEMPORARY IMPAIRMENT? TOTAL = 100% . IS THE PATIENT WORKING? NO . DOCTOR ON SITE: JAVON VALDEZ MD PROCEDURE CODES FA211 ESTABILISHED PATIENT [facility] FACILITY CHARGE 06106 OFFICE/OUTPATIENT VISIT EST DISPOSITION & COMMUNICATION FOLLOW UP REQUEST AUTH FOR L4-L5 EPIDURAL STEROID INJECTION. (REASON: REQUEST AUTH FOR L4-L5 EPIDURAL STEROID INJECTION. ) ELECTRONICALLY SIGNED BY JAVON LEONARDO MD, MD ON 08/09/2020 AT 01:16 PM EDT DISCLAIMER : THIS IS A VISIT SUMMARY EXTRACTED FROM THE [employer] CHART. IT IS NOT A COPY OF THE [employer] PROGRESS NOTE. [facility]
== END ==
LOC: M PAIN 15:00
PROVIDERS: ATTEND Anesthesiology
DX: M51.16 Intervertebral disc disorders with radiculopathy, lumbar region (principal); E11.9 Type 2 diabetes mellitus without complications; I10 Essential (primary) hypertension; K21.9 Gastro-esophageal reflux disease without esophagitis; G43.909 Migraine, unspecified, not intractable, without status migrainosus; M25.562 Pain in left knee; E07.9 Disorder of thyroid, unspecified; Z79.84 Long term (current) use of oral hypoglycemic drugs; Z79.891 Long term (current) use of opiate analgesic; Z79.899 Other long term (current) drug therapy; Z88.1 Allergy status to other antibiotic agents; Z88.8 Allergy status to other drugs, medicaments and biological substances

== ENCOUNTER → 2020-08-04 | Outpatient (CLI) | payer OTHER ==
--- NOTE | 2020-08-05 11:12 | ECWPNPC ---
PATIENT NAME: ALEX JI : 1965 GENDER: MALE VISIT DATE: 08/04/2020 DISCHARGE DATE: 08/04/20 0000 VISIT LOCKED DATE TIME: PHYSICIAN: BLANE EUGENE RESOURCE: BLANE EUGENE REASON FOR APPOINTMENT 1. W/C POST BOTOX-PT CANCELED POST BOTOX 06/17/20 HISTORY OF PRESENT ILLNESS DEPRESSION SCREENING: PHQ-2 (2015 EDITION) LITTLE INTEREST OR PLEASURE IN DOING THINGS?SEVERAL DAYS FEELING DOWN, DEPRESSED, OR HOPELESS?NOT AT ALL TOTAL SCORE1 PAIN SCREENING: PATIENT HAS A COMPLAINT OF ACUTE OR CHRONIC PAIN :YES LOCATION OF PAIN:NECK, UPPER BACK, MID BACK, LOW BACK, LEFT HIP, RIGHT HIP, LEG(S), FEET INTENSITY OF PAIN (SCALE OF 1 TO 10):7 WHAT DOES YOUR PAIN FEEL LIKE:CONTINOUS, SHARP, SHOOTING DURATION:CONTINOUS, CONSTANT PAIN IS INCREASED BY:ACTIVITIES PAIN IS DECREASED BY:USE OF PAIN MEDICATIONS, OTHERS HEAT TREATMENT/MEDICATIONS USED TO MANAGE PAIN:OPIOIDS LEVEL OF RELIEF FROM PAIN TREATMENTS IN THE PAST:25% PAIN HAS INTERFERED WITH THE FOLLOWING:MOOD, WALKING ABILITY, EMPLOYMENT, SLEEP GENERAL: HERE FOR POST BOTOX FOLLOW UP.HAD BOTOX INJECTIONS IN APRIL.REPORTING MARKED EDUCTION IN FREQUENCY AND INTENSITY OF MIGRAINE HEADACHES SINCE STARTING Q3 MOS BOTOX.THIS IS A WORK RELATED INJURY WITH DOI :04/13/1986. - -. NURSING NOTE: - -. FALL RISK SCREENING: SCREENING :NO FALLS REPORTED IN THE LAST YEAR FALL WITH INJURY EVALUATED BY MD. STATES HE INJURED RIGHT SHOULDER AND LEFT KNEE. PAIN CENTER INTAKE QUESTIONS: DO YOU HAVE A HISTORY OF MRSA? :NO DO YOU TAKE A BLOOD THINNERS? :NO DO YOU HAVE ANY BLEEDING DISORDERS? :NO ANY NEW NUMBNESS OR WEAKNESS IN YOUR LEGS OR ARMS? :YES ANY PACEMAKER,DEFIBRILLATOR, OR DORSAL COLUMN STIMULATOR? :NO DO YOU HAVE ANY RASHES OR OPEN SORES? :NO ARE YOU ALLERGIC TO IV DYE? :NO ARE YOU DIABETIC? :YES ANY NEW PROBLEMS WITH YOUR MEDICATIONS? :NO HAVE YOU RECEIVED A VACCINE IN THE PAST 30 DAYS? :NO DO YOU PLAN TO RECEIVE A VACCINE IN THE NEXT 21 DAYS? :NO DO YOU NEED ANY PRESCRIPTION? :NO DO YOU TAKE ANY IMMUNOSUPPRESSIVE MEDICATIONS? :NO IS THERE A CHANCE YOU COULD BE ? :NO ARE YOU BREAST FEEDING? :NO CURRENT MEDICATIONS TAKING PINDOLOL 5 MG TABLET 1 TABLET ORALLY QID TAKING POTASSIUM CHLORIDE 10 MEQ (PRT) TABLET EXTENDED RELEASE 1 TABLET ORALLY TWICE DAILY TAKING METFORMIN HCL ER 750 MG TABLET EXTENDED RELEASE 24 HOUR ORALLY TWICE A DAY TAKING ATENOLOL 50 MG TABLET 1 TABLET ORALLY BID TAKING LEVOTHYROXINE SODIUM 50 MCG TABLET 1 TABLET ORALLY ONCE A DAY TAKING TRIAMTERENE-HCTZ 37.5-25 MG TABLET 1 TABLET IN THE MORNING ORALLY ONCE A DAY TAKING FLONASE ALLERGY RELIEF 50 MCG/ACT SUSPENSION 1 SPRAY IN EACH NOSTRIL NASALLY ONCE A DAY TAKING MAY HAVE - - MEDICAL MARIJUANA DIRECTED TAKING CYCLOBENZAPRINE HCL 10 MG TABLET 1 TABLET NEEDED ORALLY Q6-8H PRN FOR SEVERE MUSCLE SPASM PAIN #45 TAB. SHOULD LAST 30 DAYS TAKING TOPAMAX 100 MG TABLET 1 TABLET ORALLY FOR PAIN TWICE A DAY TAKING LEVEMIR 100 UNIT/ML SOLUTION 16 UNITS SUBCUTANEOUS BID TAKING KETOROLAC TROMETHAMINE 10 MG TABLET 1 TABLET WITH FOOD OR MILK NEEDED ORALLY Q6H PRN FOR SEVERE PAIN MDD4 TAKING COLACE 100 MG CAPSULE 1 CAPSULE NEEDED ORALLY ONCE A DAY TAKING BYDUREON 2 MG PEN-INJECTOR DIRECTED SUBCUTANEOUS TAKING PERCOCET 5-325 MG TABLET 1 ORALLY Q6H PRN MDD4 TAKING AMITRIPTYLINE HCL 50 MG TABLET 3 ORALLY FOR PAIN ONCE A DAY NOT-TAKING NARCAN 4 MG/0.1ML LIQUID DIRECTED NASALLY FOR OPIOID OVERDOSE, NOTES: NEVER NOT-TAKING FENTANYL 12 MCG/HR PATCH 72 HOUR 1 PATCH TO SKIN TRANSDERMAL Q72 HR=MDD, NOTES: NOT TAKING MEDICATION LIST REVIEWED AND RECONCILED WITH THE PATIENT PAST MEDICAL HISTORY DM, HTN, CHRONIC PAIN , THYROID DISEASE, GERD, MIGRANES LEFT KNEE PAIN RIGHT SHOULDER LABRIUM TEAR FUSION AT 3-4 C ALLERGIES AZITHROMYCIN: LIP SWELLING - ALLERGY SUMATRIPTAN: FACIAL SWELLING - ALLERGY PROPOXYPHENE: PRICKLY FEELING, RASH, SOB - ALLERGY SURGICAL HISTORY FUSION C3-C4 1994 3 SURGURIES TO LEFT KNEE 1993 LEFT KNEE ARTHROSCOPY 05/2020 FAMILY HISTORY FATHER: 51 YRS, DIAGNOSED WITH DIABETES MOTHER: 50 YRS, OTHER MALIGNANT NEOPLASM OF UNSPECIFIED SITE 3 BROTHER(S) , 2 SISTER(S) . 1 SON(S) - HEALTHY. ON BROTHER R\/T PANCREATIC CANCER, ONE SISTER WITH MS \NBROTHER - COMPLICATIONS FROM AGENT ORANGE\NBROTHER - BLOOD CLOT. SOCIAL HISTORY GENERAL: TOBACCO USE ARE YOU A:NONSMOKER LATEX QUESTIONNAIRE LATEX ALLERGY : HAVE YOU EVER DEVELOPED ANY TYPE OF REACTION AFTER HANDLING LATEX PRODUCTS SUCH RUBBER GLOVES, CONDOMS, DIAPHRAGMS, BALLOONS, SOCKS, OR UNDERWEAR?NO LATEX ALLERGY : HAVE YOU EVER DEVELOPED ANY TYPE OF REACTION DURING OR AFTER DENTAL APPOINTMENT, VAGINAL/RECTAL EXAMINATION, SURGICAL PROCEDURE, OR ANY OTHER EXPOSURE?NO LATEX RISK : HAVE YOU EVER HAD ANY DIFFICULTY BREATHING OR HIVES AFTER EATING OR HANDLING ANY FRUITS, OR VEGETABLES; SUCH KIWI, BANANAS, STONE FRUITS, OR CHESTNUTSNO LATEX RISK : DO YOU HAVE A PREVIOUS PERSONAL HISTORY OF MORE THAN NINE SURGERIES, SPINA BIFIDA, OR REPEATED CATHERIZATIONS? NO LATEX RISK : ARE YOU FREQUENTLY EXPOSED TO LATEX PRODUCTS IN YOUR OCCUPATION?NO DATE ASKED : 08/04/2020 LUNG CANCER SCREENING SMOKING STATUS:NON SMOKER ALCOHOL SCREENING DID YOU HAVE A DRINK CONTAINING ALCOHOL IN THE PAST YEAR?NO POINTS0 INTERPRETATIONNEGATIVE RECREATIONAL DRUG USE DRUG USE?NO HAS PRESCRIPTION FOR MEDICAL MARIJUANA. CAFFEINE CAFFEINE USE?NO HIV / HEP-C SCREENING HIV TEST OFFERED TO PATIENT:YES DATE OFFERED:01/17/2018 TEST ACCEPTED:NO HEP-C TEST OFFERED TO PATIENT:YES DATE OFFERED:01/17/2018 REASON:PATIENT DECLINED TEST ACCEPTED:NO REASON:PATIENT DECLINED BROCHURE PROVIDED TO PATIENTNO HINDU [id number] YAZIDI LANGUAGE LANGUAGES SPOKEN:NEPALESE LEARNING BARRIERS / SPECIAL NEEDS CHANGE FROM LAST VISIT?NO BARRIERS TO LEARNING?NO HEARING IMPAIRED?NO VISION IMPAIRED?YES COGNITIVELY IMPAIRED?NO :CORRECTIVE LENSES READINESS TO LEARN?YES LEARNING PREFERENCES?YES :BOOKLETS, HANDOUTS LEARNING CAPABILITIES PRESENT?YES EMOTIONAL BARRIERS?NO SPECIAL DEVICES?YES :CANE, WHEELCHAIR CLINICAL RN MANAGER NEEDED?NO DOMESTIC VIOLENCE DO YOU FEEL SAFE IN YOUR ENVIRONMENT?YES PAIN CLINIC PFS, CLERGY, PUBLIC HEALTH REFERRALS PFS REFERRAL NEEDED?NO CLERGY REFERRAL NEEDED?NO PUBLIC HEALTH REFERRAL NEEDED?NO WAS THE PROVIDER NOTIFIED OF ANY PERTINENT INFO?YES N/A HAS THE PATIENT BEEN EDUCATED REGARDING HIS/HER PLAN OF CARE?YES HAS THE PATIENT BEEN EDUCATED REGARDING PAIN, THE RISK FOR PAIN, THE IMPORTANCE OF EFFECTIVE PAIN MANAGEMENT, AND THE PAIN ASSESSMENT PROCESS?YES ADVANCE DIRECTIVE ADVANCE DIRECTIVE DISCUSSED WITH PATIENT:YES HCP - SHE JI () PAT DONE 4-29 DS. HOSPITALIZATION/MAJOR DIAGNOSTIC PROCEDURE SURGERIES HYPERTENSION HEAD INJURY 03/1986 REVIEW OF SYSTEMS CONSTITUTIONAL: ANY RECENT FEVER NO . CHILLS NO . WEIGHT CHANGE OF UNKNOWN REASONS NO . GASTROENTEROLOGY: NEW UNEXPLAINABLE CHANGES IN BOWEL CONTROL NO . CONSTIPATION NO . GENITOURINARY: ANY NEW CHANGE IN BLADDER CONTROL? NO . NEUROLOGY: NEW ONSET DIZZINESS OR NEUROLOGICAL CHANGES NOT MENTIONED NO . NEW NUMBNESS OR PAIN PATTERNS NOT MENTIONED AND PERTINENT TO TODAY'S VISIT NO . CARDIOLOGY: NEW CHEST PRESSURE NO . NEW CHEST PAIN NO . RESPIRATORY: UNEXPLAINABLE COUGH NO . NEW SHORTNESS OF BREATH NO . VITAL SIGNS WT 317 LBS, HT 78 IN, BMI 36.63 INDEX, BP 142/76 MM HG, HR 101 /MIN, RR 18 /MIN, TEMP 96.8 F, OXYGEN SAT % 97%, SAFE IN ENV? (Y/N) YES, NA INITIALS SC 10:31, REVIEWED BY: TERRENCE. EXAMINATION GENERAL EXAMINATION: LUNGS:LUNG SOUNDS ARE CLEAR . HEART:HEART RATE REGULAR . MUSCULOSKELETAL:*. NEUROLOGIC EXAM:CN'S II-XII GROSSLY INTACT.WALKS WITH WIDE BASED ANTALGIC GAIT. ASSESSMENTS CHRONIC MIGRAINE - G43.709 (PRIMARY) TREATMENT CHRONIC MIGRAINE NOTES: W/C REQUEST BOTOX FOR CHRONIC MIGRAINE HEADACHE PREVENTATIVE THERAPY EVERY 3 MONTHS PER CLINICAL GUIDELINES. OTHERS NOTES: PAT COMPLETED 08.03.20 PF. PROCEDURES PN WORKMANS' COMP OPINION IN YOUR OPINION, WAS THE INCIDENT THAT THE PATIENT DESCRIBED THE COMPETENT MEDICAL CAUSE OF THIS INJURY/ILLNESS? YES ARE THE PATIENT'S COMPLAINTS CONSISTENT WITH HIS/HER HISTORY OF THE INJURY/ILLNESS? YES IS THE PATIENT'S HISTORY OF THE INJURY/ILLNESS CONSISTENT WITH YOUR OBJECTIVE FINDING? YES WHAT IS THE PERCENTAGE OF TEMPORARY IMPAIRMENT? MARKED = 75% IS THE PATIENT WORKING? NO DOCTOR ON SITE: JAVON VALDEZ MD PREVENTIVE MEDICINE (MALE) PREVENTIVE WELLNESS PLAN: TODAY'S VISIT PATIENT PRESENTS TODAY FOR: BOTOX INJECTIONS AND WILL SEE POST PROCEDURE. HE IS CLEAR AND ALL PRE-PROCEDURE INSTRUCTIONS AND KNOWS TO STOP HIS MEDS, TALKED WITH BLANE AND SHE WAS FINE WITH LETTING HIM GO WITH A VERBAL PRE-PROCEDURE TEACHING PROCEDURE CODES FA211 ESTABILISHED PATIENT [facility] CHARGE DISPOSITION & COMMUNICATION FOLLOW UP POST PROCEDURE (REASON: W/C REQUEST BOTOX FOR CHRONIC MIGRAINE HEADACHE ) ELECTRONICALLY SIGNED BY MEKA BAPTISTE ON 08/05/2020 AT 10:38 AM EDT DISCLAIMER : THIS IS A VISIT SUMMARY EXTRACTED FROM THE [employer] CHART. IT IS NOT A COPY OF THE [employer] PROGRESS NOTE. NAHEED
== END ==
LOC: M PAIN 10:00
PROVIDERS: ATTEND Nurse Practitioner Family
DX: G43.709 Chronic migraine without aura, not intractable, without status migrainosus (principal); E11.9 Type 2 diabetes mellitus without complications; I10 Essential (primary) hypertension; K21.9 Gastro-esophageal reflux disease without esophagitis; E07.9 Disorder of thyroid, unspecified; Z79.4 Long term (current) use of insulin; Z79.891 Long term (current) use of opiate analgesic; Z79.899 Other long term (current) drug therapy; Z98.1 Arthrodesis status; Z88.1 Allergy status to other antibiotic agents; Z88.8 Allergy status to other drugs, medicaments and biological substances

== ENCOUNTER → 2020-09-01 | Outpatient (CLI) | payer OTHER ==
[~2020-09-01] MED LIST changes: +ATEN50TA2 PO; +BYDU1INJ SC; -CYCL-707; +CYCL-707 PO; +KETO10TAB PO; +METF750T36 PO; +PERC7.5T11 PO; -PIND25TA; +PIND25TA PO; -POTA20TA6; +POTA20TA6 PO; +SYNT50TA PO; +TOPI100T9 PO
== END ==
LOC: M LABSMTC 11:57
PROVIDERS: ATTEND Anesthesiology
DX: Z20.828 Contact with and (suspected) exposure to other viral communicable diseases (principal)

== ENCOUNTER 2020-09-03 15:19 | Observation (INO) | payer OTHER ==
[~2020-09-03] VITALS: Ht 195.6 cm; Wt 144.3 kg
[~2020-09-03 15:19] MED LIST changes: -ATEN50TA2 PO; -BYDU1INJ SC; -KETO10TAB PO; -METF750T36 PO; -PERC7.5T11 PO; -SYNT50TA PO; -TOPI100T9 PO
[2020-09-03] MEDS ORDERED: KETO10TAB PO ×2 (15:47→20:25)
[2020-09-03] MEDS ORDERED: LIDOCAINE 5% (LIDODERM) PATCH TD ONE ×2 (16:30→18:00)
[2020-09-03] MEDS ORDERED: BACLOFEN 10 MG TAB PO ONE (16:30)
--- NOTE | 2020-09-03 16:52 | REPVR ---
PROCEDURE INFORMATION: Exam: CT Head Without Contrast Exam date and time: 09/03/2020 4:24 PM Age: 54 years old Clinical indication: Other: Blacking out; Additional info: "blacking out" TECHNIQUE: Imaging protocol: Computed tomography of the head without contrast. Radiation optimization: All CT scans at this facility use at least one of these dose optimization techniques: automated exposure control; mA and/or kV adjustment per patient size (includes targeted exams where dose is matched to clinical indication); or iterative reconstruction. COMPARISON: CT Head without contrast 10/26/2015 4:58 PM FINDINGS: Brain: Mild diffuse cortical volume loss. No acute intracranial hemorrhage. Mild chronic small vessel ischemic changes in the bilateral periventricular white matter. No midline shift. Cerebral ventricles: No ventriculomegaly. Bones/joints: No acute fracture. Paranasal sinuses: Visualized sinuses are unremarkable. No fluid levels. Mastoid air cells: Visualized mastoid air cells are well aerated. Soft tissues: Unremarkable. IMPRESSION: Acute intracranial abnormality is identified. Electronically signed by: Elizabeth Talavera On 09/03/2020 16:52:13 PM
[2020-09-03 18:00] LABS: BASO # 0.1 10^3/uL (0.0-0.2); BASO % 0.6 % (0.0-1.0); EOS # 0.1 10^3/uL (0.0-0.5); EOS % 1.1 % (0.0-3.0); HEMOGLOBIN 15.7 g/dl (13.5-17.5); LYMPH # 1.5 10^3/uL (1.5-5.0); MEAN CORPUSCULAR HEMOGLOBIN 28.6 pg (27.0-33.0); MEAN CORPUSCULAR HGB CONC 33.4 g/dl (32.0-36.5); MEAN CORPUSCULAR VOLUME 85.6 fl (80.0-96.0); MONO # 0.7 10^3/uL (0.0-0.8); MONO % 5.6 % (0.0-5.0); NEUTROPHILS # 9.3 10^3/uL (1.5-8.5); NEUTROPHILS % 78.8 % (36.0-66.0); PLATELET COUNT, AUTOMATED 307 10^3/uL (150-450); RED BLOOD COUNT 5.49 10^6/uL (4.30-6.10); WHITE BLOOD COUNT 11.8 10^3/uL (4.0-10.0)
[2020-09-03 18:28] LABS: AMPHETAMINES LEVEL URINE NEGATIVE (NEGATIVE); BARBITURATES URINE NEGATIVE (NEGATIVE); BENZODIAZEPINES URINE NEGATIVE (NEGATIVE); CANNABINOIDS URINE POSITIVE (NEGATIVE); COCAINE METABOLITE URINE NEGATIVE (NEGATIVE); METHADONE URINE NEGATIVE (NEGATIVE); OPIATES URINE NEGATIVE (NEGATIVE); PHENCYCLIDINE URINE NEGATIVE (NEGATIVE)
[2020-09-03 18:36] LABS: ACETAMINOPHEN LEVEL < 2.0 UG/ML (10.0-30.0); ALBUMIN 3.9 GM/DL (3.2-5.2); ALT/SGPT 37 U/L (12-78); BILIRUBIN,DIRECT 0.2 MG/DL (0.0-0.2); BILIRUBIN,TOTAL 0.8 MG/DL (0.2-1.0); BLOOD UREA NITROGEN 26 MG/DL (7-18); CALCIUM LEVEL 9.2 MG/DL (8.5-10.1); CARBON DIOXIDE LEVEL 26 MEQ/L (21-32); CHLORIDE LEVEL 106 MEQ/L (98-107); CK-MB VALUE MASS 2.1 NG/ML (<3.6); CPK CREATINE PHOSPHOKINASE 135 U/L (39-308); CREATININE FOR GFR 1.52 MG/DL (0.70-1.30); ETHYL ALCOHOL (ETHANOL) < 0.003 % (0.000-0.010); FREE T4 1.18 NG/DL (0.76-1.46); GLOMERULAR FILTRATION RATE 50.9 (>56); GLUCOSE, FASTING 146 MG/DL (70-100); LIPASE 95 U/L (73-393); MB/CK RELATIVE INDEX 1.56 (< OR =4); POTASSIUM SERUM 3.7 MEQ/L (3.5-5.1); SALICYLATE LEVEL < 1.7 MG/DL (5.0-30.0); SODIUM LEVEL 139 MEQ/L (136-145); THYROID STIMULATING HORMONE 0.791 uIU/ML (0.358-3.740); TROPONIN I < 0.02 NG/ML (< 0.10)
[2020-09-03] MEDS ORDERED: ONDANSETRON 4MG/2ML VIAL IV ONE (20:00)
[2020-09-03] MEDS ORDERED: MORPHINE 4 MG/ML 1ML VIAL/SYRINGE (J2270) IV ONE (20:00)
[2020-09-03] MEDS ORDERED: MAALOX 30 ML SUSP *UDC PO PRN (20:15)
[2020-09-03] MEDS ORDERED: DEXTROSE 50% 50 ML SYRINGE IV PRN (20:15)
[2020-09-03] MEDS ORDERED: GLUCAGON INJ 1MG VIAL SC PRN (20:15)
[2020-09-03] MEDS ORDERED: MOM 30ML SUSPENSION UDC PO PRN (20:15)
[2020-09-03] MEDS ORDERED: GLUCOSE 4GM CHEW TABLET PO PRN (20:15)
[2020-09-03] MEDS ORDERED: ACETAMINOPHEN TAB 650MG DOSE (2X325MG) PO PRN (20:15)
[2020-09-03] MEDS ORDERED: ATEN50TA2 PO (20:25)
[2020-09-03] MEDS ORDERED: SYNT50TA PO (20:25)
[2020-09-03] MEDS ORDERED: BYDU1INJ SC (20:25)
[2020-09-03] MEDS ORDERED: METF750T36 PO (20:25)
[2020-09-03] MEDS ORDERED: PERC7.5T11 PO (20:25)
[2020-09-03] MEDS ORDERED: TOPI100T9 PO (20:25)
[2020-09-03 20:30] LABS: HEMOGLOBIN A1c 5.9 %
[2020-09-03] MEDS ORDERED: LORazepam 2 MG/ML VIAL IV STA (20:58)
[2020-09-03] MEDS ORDERED: **NOTE PATIENT COMMENT** MISC XX SCH ×2 (21:00)
[2020-09-03] MEDS ORDERED: metFORMIN XR 750 MG TAB PO SCH (21:00)
[2020-09-03] MEDS ORDERED: LEVEMIR (INSULIN DETEMIR) 1 UNITS/0.01ML SC SCH (21:00)
[2020-09-03] MEDS ORDERED: HumaLOG INSULIN (NovoLOG) PER UNIT SC SCH (21:00)
--- NOTE | 2020-09-03 21:44 | ECGEPIP ---
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
[2020-09-03] MEDS ORDERED: MORPHINE 2 MG/ML 1ML VIAL (J2270) IV ONE (22:45)
--- NOTE | 2020-09-03 23:20 | HPEPDOC ---
[facility] Medical History & Physical Date of Admission Sep 03, 2020 Date of Service: Sep 03, 2020 Other Provider Ilene DINERO- Attending Physician: LUIS COFFEY MD History and Physical TIME OF SERVICE: 8:36 PM CHIEF COMPLAINT: Back pain HISTORY OF PRESENT ILLNESS: This 54 year old gentleman developed acute worsening of his chronic back pain while riding back from [place]. His was driving at the time. He took 40 mg of Toradol, 10 mg of cyclobenzaprine and some powdered cannabis, but this didn't help alleviate his pain. After taking the medications. He noted that he had episodes where he "blacked out" it's unclear whether he lost consciousness, but there are lapses in his memory. As of the back pain. He has had difficulty walking. But he denies having reduced sensation in his perineal area or rectal area. Per discussion with the Laurie Chin, his rectal tone was intact. The patient also mentioned one episode of urinary incontinence last week, which has not reoccurred. REVIEW OF SYSTEMS: 12 point review of systems negative except as listed in HPI PAST MEDICAL/ SURGICAL HISTORY: hx of TBI CKD 3 HTN Hypothyroidism NIDDM Migraines Chronic back pain Small vessel ischemic disease Obesity Right vein ligation Chronic neck pain / C3-C4 fusion Left knee surgery 3 SOCIAL HISTORY: He doesn't smoke or drink and uses medically prescribed cannabis FAMILY HISTORY: DM, pancreatic cancer, multiple sclerosis ALLERGIES: Please see below. HOME MEDICATIONS: Please see below. PHYSICAL EXAMINATION: Vital Signs Date Time Temp Pulse Resp B/P (MAP) Pulse Ox O2 Delivery O2 Flow Rate FiO2 09/03/20 15:41 184/102 (129) 09/03/20 15:47 99.5 75 24 100 Room Air GEN: well-nourished / well developed/ anxious INTEGUMENT: slightly flushed/ not jaundice HEENT: lips acyanotic /mucus membranes dry and pink / has mild conjunctival injection CVS: RRR/NMRG/ radial and dorsalis pedis pulses intact LUNGS: able to speak full sentences without stopping to take a breath / no coughing / lungs are clear to auscultation bilaterally on room air ABDOMEN: Contour ( obese) MSK/EXTREMITIES: NCAT / range of motion in arms and legs limited bc of back and neck pain NEURO: CN 2-12 are grossly intact / speech is not dysarthric / he was not able to provide full resistance while I was checking the strength in his limbs bc of back pain PSYCH: alert and oriented to person place and time/ able to understand and follow all commands LABORATORY DATA: Immature Granulocyte % (Auto) 0.9, Neutrophils (%) (Auto) 78.8H, Lymphocytes (%) (Auto) 13.0L, Monocytes (%) (Auto) 5.6H, Eosinophils (%) (Auto) 1.1, Basophils (%) (Auto) 0.6, Neutrophils # (Auto) 9.3H, Lymphocytes # (Auto) 1.5, Monocytes # (Auto) 0.7, Eosinophils # (Auto) 0.1, Basophils # (Auto) 0.1, Nucleated Red Blood Cells % (auto) 0.0, Urine Color YELLOW, Urine Appearance CLEAR, Urine pH 6.0, Urine Specific Gordon 1.015, Urine Protein NEGATIVE, Urine Glucose (UA) NEGATIVE, Urine Ketones NEGATIVE, Urine Blood NEGATIVE, Urine Nitrite NEGATIVE, Urine Bilirubin NEGATIVE, Urine Urobilinogen 2.0H, Urine Leukocyte Esterase NEGATIVE, Urine WBC (Auto) 1, Urine RBC (Auto) 0, Urine Hyaline Casts (Auto) 1, Urine Bacteria (Auto) NEGATIVE, Urine Squamous Epithelial Cells 0, Urine Mucus (Auto) SMALL, Urine Sperm (Auto) , Anion Gap 7L, Glomerular Filtration Rate 50.9L, Estimated Mean Plasma Glucose 123H, Hemoglobin A1c 5.9, Calcium Level 9.2, Total Bilirubin 0.8, Direct Bilirubin 0.2, Aspartate Amino Transf (AST/SGOT) 19, Alanine Aminotransferase (ALT/SGPT) 37, Alkaline Phosphatase 105, Total Creatine Kinase 135, Creatine Kinase MB 2.1, Creatine Kinase MB Relative Index 1.56, Troponin I < 0.02, Total Protein 7.0, Albumin 3.9, Albumin/Globulin Ratio 1.3, Lipase 95, Thyroid Stimulating Hormone (TSH) 0.791, Free Thyroxine 1.18, Salicylates Level < 1.7L, Urine Opiates Screen NEGATIVE, Urine Methadone Screen NEGATIVE, Acetaminophen Level < 2.0L, Urine Barbiturates Screen NEGATIVE, Urine Phencyclidine Screen NEGATIVE, Urine Amphetamines Screen NEGATIVE, Urine Benzodiazepines Screen NEGATIVE, Urine Cocaine Metabolite Screen NEGATIVE, Urine Cannabinoids Screen POSITIVEH, Ethyl Alcohol Level < 0.003 09/03/20 20:35: Coronavirus (COVID-19)(PCR) NEGATIVE 09/03/20 22:28: Bedside Glucose (Misc Panel) 111H IMAGING: CT head "No acute intracranial abnormality." MICROBIOLOGY: Please see below. ASSESSMENT: Mr. Keane is a 54-year-old with a history of chronic neck and back pain, migraines, NIDDM, hypertension, CKD 3, hypothyroidism, and obesity who came to the hospital for evaluation of acute on chronic back pain, memory lapse after taking tramadol, Flexeril, and cannabis powder. PLAN: 1. Transient metabolic encephalopathy Likely due to combination of tramadol, Flexeril, and cannabis powder. CT of head and ammonia unrevealing Plan: Admit to medical floor/follow-up, frequent neuro checks / fall precautions 2. Acute on chronic back pain His next appointment with Dr. Avila is on Sunday. MRI of the spine was ordered in the ER but the pt was unable to complete it bc of severe pain Plan: f/u MRI tomorrow once his pain is better controlled / continue with oxycodone with acetaminophen, cyclobenzaprine, ketorolac, and add Flector patch/ daytime team and consider placing a pain management consult 3. Hypothyroidism Plan: f/u TSH / levothyroxine 4. CKD 3 stable 5. Chronic HTN Plan: Triamterene, hydrochlorothiazide, pindolol and atenolol 6. NIDDM Plan: diabetic diet / f/u accuchecks & A1C / hypoglycemia protocol / sliding scale insulin / hold metformin / decrease Levemir from 16 units BID to 10 units BID 7. Migraines Plan: Topiramate, amitriptyline 8. Small vessel ischemic disease Plan: manage BP 9. Obesity complicates care since the BMI >35 and the patient has DM they are a candidate for bariatric surgery Plan: f/u A1C / the pt can f/u w his PCP for STOP BANG questionnaire, marketing specialist consult & referral to Bariatric Surgeon / recommend cardiovascular exercise for 40 min 4-5 days a week DVT PROPHYLAXIS: Lovenox DISPOSITION: home after more than 2 midnight's stay Home Medications Scheduled Amitriptyline HCl (Amitriptyline HCl) 50 Mg Tab, 150 MG PO QHS Atenolol (Atenolol) 50 Mg Tablet, 50 MG PO BID Exenatide Microspheres (Bydureon) 2 Mg/0.65 Ml Pen.injctr, 2 MG SC 1XWK ON MONDAYS Levothyroxine Sodium (Synthroid) 50 Mcg Tablet, 50 MCG PO DAILY Metformin HCl (Metformin HCl ER) 750 Mg Tab.er.24h, 750 MG PO BID Oxycodone HCl/Acetaminophen (Percocet 7.5-325 mg Tablet) 1 Each Tablet, 1 TAB PO TID CAN TAKE EXTRA TAB NEEDED FOR BREAKTHROUGH PAIN Pindolol (Pindolol) 5 Mg Tablet, 5 MG PO QID Potassium Chloride (Potassium Chloride) 20 Meq Tab.er.prt, 20 MEQ PO BID Topiramate (Topiramate) 100 Mg Tablet, 100 MG PO BID Triamterene/Hydrochlorothiazid (Triamterene-Hctz 37.5-25 mg Cp) 1 Cap Cap, 1 CAP PO DAILY @ 1200 Scheduled PRN Cyclobenzaprine HCl (Cyclobenzaprine HCl) 10 Mg Tablet, 10 MG PO Q8H PRN for MUSCLE SPASMS Ketorolac Tromethamine (Ketorolac Tromethamine) 10 Mg Tablet, 10 MG PO Q6H PRN for PAIN Allergies Coded Allergies: sumatriptan (Verified Allergy, Severe, FACIAL SWELLING, 03/06/20) azithromycin (Verified Allergy, Unknown, LIP SWELLING, 03/06/20) propoxyphene (Verified Allergy, Unknown, PRICKLY FEELING, RASH, SOB, 03/06/20) A-FIB/CHADSVASC A-FIB History Current/History of A-Fib/PAF?: No Current PO Anticoag Therapy: No LUIS COFFEY MD Sep 03, 2020 23:19
[2020-09-03] MEDS ORDERED: KETOROLAC TROMETHAMINE 10 MG TAB PO PRN (23:45)
[2020-09-03] MEDS ORDERED: AMITRIPTYLINE 50 MG TAB PO SCH (23:45)
[2020-09-04] MEDS: CYCLOBENZAPRINE 10MG TABLET PO PRN ×2 (00:59→10:22)
[2020-09-04] MEDS: TOPIRAMATE (TopAMAX) 100 MG TAB PO SCH ×2 (00:59→08:34)
[2020-09-04] MEDS: ANEXSIA, NORCO 7.5MG/325MG TABLET(HYDROCODONE/APAP) PO PRN ×2 (01:00→12:44)
[2020-09-04] MEDS: POTASSIUM CHLORIDE 10 MEQ SR TABLET PO SCH ×2 (01:01→08:33)
[2020-09-04] MEDS: DICLOFENAC EPOLAMINE 1.3 % PATCH TOP SCH ×2 (01:01→08:35)
[2020-09-04] MEDS: atenoloL 50 MG TAB PO SCH ×2 (01:01→08:37)
[2020-09-04 01:54] VITALS: BP 138/88
[2020-09-04 06:00] VITALS: BP 123/63
[2020-09-04 06:26] LABS: HEMATOCRIT 43.6 % (42.0-52.0); HEMOGLOBIN 14.6 g/dl (13.5-17.5); MEAN CORPUSCULAR HEMOGLOBIN 29.3 pg (27.0-33.0); MEAN CORPUSCULAR HGB CONC 33.5 g/dl (32.0-36.5); MEAN CORPUSCULAR VOLUME 87.4 fl (80.0-96.0); PLATELET COUNT, AUTOMATED 225 10^3/uL (150-450); RED BLOOD COUNT 4.99 10^6/uL (4.30-6.10); WHITE BLOOD COUNT 9.6 10^3/uL (4.0-10.0)
[2020-09-04 06:51] LABS: BLOOD UREA NITROGEN 27 MG/DL (7-18); CALCIUM LEVEL 8.4 MG/DL (8.5-10.1); CARBON DIOXIDE LEVEL 26 MEQ/L (21-32); CHLORIDE LEVEL 109 MEQ/L (98-107); CREATININE FOR GFR 1.23 MG/DL (0.70-1.30); GLOMERULAR FILTRATION RATE > 60.0 (>56); GLUCOSE, FASTING 119 MG/DL (70-100); POTASSIUM SERUM 3.2 MEQ/L (3.5-5.1); SODIUM LEVEL 141 MEQ/L (136-145)
[2020-09-04] MEDS ORDERED: metFORMIN XR 750 MG TAB PO SCH (08:00)
[2020-09-04] MEDS: HumaLOG INSULIN (NovoLOG) PER UNIT SC SCH ×2 (08:32→12:00)
[2020-09-04 08:37] VITALS: BP 118/68
[2020-09-04] MEDS ORDERED: NS 1,000 ML IV SCH (09:00)
[2020-09-04] MEDS ORDERED: LEVEMIR (INSULIN DETEMIR) 1 UNITS/0.01ML SC SCH (09:00)
[2020-09-04] MEDS ORDERED: KETOROLAC 30 MG/ML 1ML VIAL IV SCH (09:00)
[2020-09-04] MEDS ORDERED: POTASSIUM CHLORIDE 10 MEQ SR TABLET PO SCH (09:00)
[2020-09-04] MEDS ORDERED: LEVOTHYROXINE 50MCG TABLET (0.05MG) PO SCH (09:00)
[2020-09-04] MEDS ORDERED: DICLOFENAC EPOLAMINE 1.3 % PATCH TOP SCH (09:00)
[2020-09-04] MEDS ORDERED: ENOXAPARIN 40MG/0.4ML SYRINGE (J1650 PER 10MG) SC SCH (09:00)
--- NOTE | 2020-09-04 11:52 | IPNPDOC ---
Date Seen The patient was seen on 09/04/20. Progress Note SUBJECTIVE: Patient complains at 6 out of 10 pain in his lower back with radiation down to his legs which is chronic but worsened in the past week. He is scheduled to see Dr. Avila for injections in the back on Sunday and is anxious to go home by then. He denies any urine incontinence and no weakness of the lower extremities. . He complains of migraine symptoms without visual changes, slight photophobia. OBJECTIVE: PHYSICAL EXAMINATION: VITAL SIGNS: SEE BELOW GEN.: Obese, awake, alert, oriented 3, no respiratory distress HEENT: Moist mucous membranes. No JVD, no thyromegaly. Extraocular muscles are intact. Trachea is midline mild conjunctival injection CVS: S1, S2, regular rate and rhythm radial and dorsalis pedis pulses intact LUNGS: clear to auscultation bilaterally. Is equal bilaterally. No adventitious breath sounds ABDOMEN: Obese, soft, nontender, nondistended, positive bowel sounds 4 quadrants. No rebound, guarding EXTREMITIES NO CYANOSIS OR CLUBBING NEURO: Patient is complaining of paresthesias in bilateral lower legs which shooting pain described as sharp, electrical-like shock from his lower back to his toes. Rectal tone intact PER on admission Negative straight leg raise test. . Motor function 5 out of 54 extremities LABORATORY DATA: SEE BELOW Imaging studies: SEE BELOW ASSESSMENT: 54 [id number] male admitted on 09/03/2020 due to worsening pain while driving home from [place] describe this radicular involving bilateral lower extremities with no relief after taking Toradol, cyclobenzaprine and cannabis resulting in acute encephalopathy and possible. Problem list: Acute toxic encephalopathy secondary to polypharmacy with using cannabis, Toradol, cyclobenzaprine for back pain Lumbar Radiculopathy Debility secondary to lumbar radiculopathy Gait imbalance hx of TBI CKD 3 HTN Hypothyroidism NIDDM Migraines Chronic back pain Small vessel ischemic disease Obesity Right vein ligation Chronic neck pain / C3-C4 fusion Left knee surgery 3 PLAN physical therapy, Toradol as needed pain medications. Patient has an appointment with Dr. Avila on Sunday for injections. IV Reglan for migraines and Toradol. Monitor patient's urine output and creatinine. IV fluid hydration to prevent nephrotoxicity. Continue all other present medications. Discharge plans for Sunday ordered. The latest Sunday morning. He has an appointment at 10 AM with pain management. VS, I&O, [facility] Vital Signs/I&O Vital Signs Date Time Temp Pulse Resp B/P (MAP) Pulse Ox O2 Delivery O2 Flow Rate FiO2 09/04/20 08:37 84 118/68 09/04/20 06:00 97.5 18 97 Room Air I&O- Last 24 Hours up to 6 AM 09/04/20 06:00 Intake Total 0 ml Output Total 0 ml Balance 0 ml Laboratory Data 24H LABS Laboratory Tests 2 09/03/20 17:44: Immature Granulocyte % (Auto) 0.9, Neutrophils (%) (Auto) 78.8H, Lymphocytes (%) (Auto) 13.0L, Monocytes (%) (Auto) 5.6H, Eosinophils (%) (Auto) 1.1, Basophils (%) (Auto) 0.6, Neutrophils # (Auto) 9.3H, Lymphocytes # (Auto) 1.5, Monocytes # (Auto) 0.7, Eosinophils # (Auto) 0.1, Basophils # (Auto) 0.1, Nucleated Red Blood Cells % (auto) 0.0, Urine Color YELLOW, Urine Appearance CLEAR, Urine pH 6.0, Urine Specific [place] 1.015, Urine Protein NEGATIVE, Urine Glucose (UA) NEGATIVE, Urine Ketones NEGATIVE, Urine Blood NEGATIVE, Urine Nitrite NEGATIVE, Urine Bilirubin NEGATIVE, Urine Urobilinogen 2.0H, Urine Leukocyte Esterase NEGATIVE, Urine WBC (Auto) 1, Urine RBC (Auto) 0, Urine Hyaline Casts (Auto) 1, Urine Bacteria (Auto) NEGATIVE, Urine Squamous Epithelial Cells 0, Urine Mucus (Auto) SMALL, Urine Sperm (Auto) , Anion Gap 7L, Glomerular Filtration Rate 50.9 L, Estimated Mean Plasma Glucose 123H, Hemoglobin A1c 5.9, Calcium Level 9.2, Total Bilirubin 0.8, Direct Bilirubin 0.2, Aspartate Amino Transf (AST/SGOT) 19, Alanine Aminotransferase (ALT/SGPT) 37, Alkaline Phosphatase 105, Total Creatine Kinase 135, Creatine Kinase MB 2.1, Creatine Kinase MB Relative Index 1.56, Troponin I < 0.02, Total Protein 7.0, Albumin 3.9, Albumin/Globulin Ratio 1.3, Lipase 95, Thyroid Stimulating Hormone (TSH) 0.791, Free Thyroxine 1.18, Salicylates Level < 1.7L, Urine Opiates Screen NEGATIVE, Urine Methadone Screen NEGATIVE, Acetaminophen Level < 2.0L, Urine Barbiturates Screen NEGATIVE, Urine Phencyclidine Screen NEGATIVE, Urine Amphetamines Screen NEGATIVE, Urine Benzodiazepines Screen NEGATIVE, Urine Cocaine Metabolite Screen NEGATIVE, Urine Cannabinoids Screen POSITIVEH, Ethyl Alcohol Level < 0.003 09/03/20 20:35: Coronavirus (COVID-19)(PCR) NEGATIVE 09/03/20 22:28: Bedside Glucose (Misc Panel) 111H 09/04/20 00:18: Bedside Glucose (Misc Panel) 114H 09/04/20 06:15: Nucleated Red Blood Cells % (auto) 0.0, Anion Gap 6L, Glomerular Filtration Rate > 60.0, Calcium Level 8.4L CBC/BMP Laboratory Tests 09/03/20 17:44 09/04/20 06:15 CHARLENE GENTILE MD Sep 04, 2020 11:52
[2020-09-04] MEDS ORDERED: DYAZIDE 37.5/25 CAP (TRIAM/HCTZ) PO SCH (12:00)
[2020-09-04] MEDS ORDERED: METOCLOPRAMIDE INJ 10MG/2ML VIAL (J2765 PER 1) IV SCH (12:00)
[2020-09-04] MEDS ORDERED: PINDOLOL 5 MG PO SCH (13:00)
[2020-09-04 14:00] VITALS: BP 142/83
--- NOTE | 2020-09-04 14:15 | DS.PDOC ---
Discharge Summary General Date of Admission Sep 03, 2020 at 15:20 Date of Discharge 09/04/20 Discharge Summary DISCHARGE DIAGNOSES: Acute toxic encephalopathy secondary to polypharmacy with using cannabis, T oradol, cyclobenzaprine for back pain Lumbar Radiculopathy Debility secondary to lumbar radiculopathy Gait imbalance hx of TBI CKD 3 HTN Hypothyroidism NIDDM Migraines Chronic back pain Small vessel ischemic disease Obesity Right vein ligation Chronic neck pain / C3-C4 fusion Left knee surgery 3 DISCHARGE MEDICATIONS: SEE BELOW HOSPITAL COURSE: 54 year-old male admitted on 09/03/2020 due to worsening pain while driving home from [place] describe this radicular involving bilateral lower extremities with no relief after taking Toradol, cyclobenzaprine and cannabis resulting in acute encephalopathy due to polypharmacy. He also c/o migraine and acute on chronic back pain, for which he was treated with flector patch, iv toradol and reglan for migraine, with improvement. pt had no saddle anesthesia or b/l le paralysis. He was given ivfluids and PRN pain meds, and once the pain was tolerable,pt requested discharge home with f/u w Dr. Avila on sunday. DISCHARGE PHYSICAL EXAMINATION: VITAL SIGNS: SEE BELOW GEN.: Obese, awake, alert, oriented 3, no respiratory distress HEENT: Moist mucous membranes. No JVD, no thyromegaly. Extraocular muscles are intact. Trachea is midline mild conjunctival injection CVS: S1, S2, regular rate and rhythm radial and dorsalis pedis pulses intact LUNGS: clear to auscultation bilaterally. Is equal bilaterally. No adventitious breath sounds ABDOMEN: Obese, soft, nontender, nondistended, positive bowel sounds 4 quadrants. No rebound, guarding EXTREMITIES NO CYANOSIS OR CLUBBING NEURO: Patient is complaining of paresthesias in bilateral lower legs which shooting pain described as sharp, electrical-like shock from his lower back to his toes. Rectal tone intact PER on admission Negative straight leg raise test. . Motor function 5 out of 54 extremities LABORATORY DATA: SEE BELOW CTHEAD: NO ACUTE INTRACRANIAL ABNORMALITY TIME SPENT ON DISCHARGE: 30 MIN Vital Signs/I&Os Vital Signs Date Time Temp Pulse Resp B/P (MAP) Pulse Ox O2 Delivery O2 Flow Rate FiO2 09/04/20 13:30 18 09/04/20 08:37 84 118/68 09/04/20 06:00 97.5 97 Room Air I&O- Last 24 Hours up to 6 AM 09/04/20 05:59 Intake Total 0 ml Output Total 0 ml Balance 0 ml Laboratory Data Labs 24H Laboratory Tests 2 09/03/20 17:44: Immature Granulocyte % (Auto) 0.9, Neutrophils (%) (Auto) 78.8H, Lymphocytes (%) (Auto) 13.0L, Monocytes (%) (Auto) 5.6H, Eosinophils (%) (Auto) 1.1, Basophils (%) (Auto) 0.6, Neutrophils # (Auto) 9.3H, Lymphocytes # (Auto) 1.5, Monocytes # (Auto) 0.7, Eosinophils # (Auto) 0.1, Basophils # (Auto) 0.1, Nucleated Red Blood Cells % (auto) 0.0, Urine Color YELLOW, Urine Appearance CLEAR, Urine pH 6.0, Urine Specific [place] 1.015, Urine Protein NEGATIVE, Urine Glucose (UA) NEGATIVE, Urine Ketones NEGATIVE, Urine Blood NEGATIVE, Urine Nitrite NEGATIVE, Urine Bilirubin NEGATIVE, Urine Urobilinogen 2.0H, Urine Leukocyte Esterase NEGATIVE, Urine WBC (Auto) 1, Urine RBC (Auto) 0, Urine Hyaline Casts (Auto) 1, Urine Bacteria (Auto) NEGATIVE, Urine Squamous Epithelial Cells 0, Urine Mucus (Auto) SMALL, Urine Sperm (Auto) , Anion Gap 7L, Glomerular Filtration Rate 50.9L, Estimated Mean Plasma Glucose 123H, Hemoglobin A1c 5.9, Calcium Level 9.2, Total Bilirubin 0.8, Direct Bilirubin 0.2, Aspartate Amino Transf (AST/SGOT) 19, Alanine Aminotransferase (ALT/SGPT) 37, Alkaline Phosphatase 105, Total Creatine Kinase 135, Creatine Kinase MB 2.1, Creatine Kinase MB Relative Index 1.56, Troponin I < 0.02, Total Protein 7.0, Albumin 3.9, Albumin/Globulin Ratio 1.3, Lipase 95, Thyroid Stimulating Hormone (TSH) 0.791, Free Thyroxine 1.18, Salicylates Level < 1.7L, Urine Opiates Screen NEGATIVE, Urine Methadone Screen NEGATIVE, Acetaminophen Level < 2.0L, Urine Barbiturates Screen NEGATIVE, Urine Phencyclidine Screen NEGATIVE, Urine Amphetamines Screen NEGATIVE, Urine Benzodiazepines Screen NEGATIVE, Urine Cocaine Metabolite Screen NEGATIVE, Urine Cannabinoids Screen POSITIVEH, Ethyl Alcohol Level < 0.003 09/03/20 20:35: Coronavirus (COVID-19)(PCR) NEGATIVE 09/03/20 22:28: Bedside Glucose (Misc Panel) 111H 09/04/20 00:18: Bedside Glucose (Misc Panel) 114H 09/04/20 06:15: Nucleated Red Blood Cells % (auto) 0.0, Anion Gap 6L, Glomerular Filtration Rate > 60.0, Calcium Level 8.4L 09/04/20 11:37: Bedside Glucose (Misc Panel) 84 CBC/BMP Laboratory Tests 09/03/20 17:44 09/04/20 06:15 FSBS Laboratory Tests Test 09/03/20 22:28 09/04/20 00:18 09/04/20 11:37 Range/Units Bedside Glucose (Misc Panel) 111 114 84 70-105 MG/DL Discharge Medications Scheduled Amitriptyline HCl (Amitriptyline HCl) 50 Mg Tab, 150 MG PO QHS, (Reported) Atenolol (Atenolol) 50 Mg Tablet, 50 MG PO BID, (Reported) Exenatide Microspheres (Bydureon) 2 Mg/0.65 Ml Pen.injctr, 2 MG SC 1XWK, (Reported) ON MONDAYS Levothyroxine Sodium (Synthroid) 50 Mcg Tablet, 50 MCG PO DAILY, (Reported) Metformin HCl (Metformin HCl ER) 750 Mg Tab.er.24h, 750 MG PO BID, (Reported) Oxycodone HCl/Acetaminophen (Percocet 7.5-325 mg Tablet) 1 Each Tablet, 1 TAB PO TID, (Reported) CAN TAKE EXTRA TAB NEEDED FOR BREAKTHROUGH PAIN Pindolol (Pindolol) 5 Mg Tablet, 5 MG PO QID, (Reported) Potassium Chloride (Potassium Chloride) 20 Meq Tab.er.prt, 20 MEQ PO BID, (Reported) Topiramate (Topiramate) 100 Mg Tablet, 100 MG PO BID, (Reported) Triamterene/Hydrochlorothiazid (Triamterene-Hctz 37.5-25 mg Cp) 1 Cap Cap, 1 CAP PO DAILY, (Reported) @ 1200 Scheduled PRN Cyclobenzaprine HCl (Cyclobenzaprine HCl) 10 Mg Tablet, 10 MG PO Q8H PRN for MUSCLE SPASMS, (Reported) Ketorolac Tromethamine (Ketorolac Tromethamine) 10 Mg Tablet, 10 MG PO Q6H PRN for PAIN, (Reported) Allergies Coded Allergies: sumatriptan (Verified Allergy, Severe, FACIAL SWELLING, 03/06/20) azithromycin (Verified Allergy, Unknown, LIP SWELLING, 03/06/20) propoxyphene (Verified Allergy, Unknown, PRICKLY FEELING, RASH, SOB, 03/06) CHARLENE GENTILE MD Sep 04, 2020 14:15
== END 2020-09-04 16:00 | disposition home or self-care (01) ==
LOC: M ED 15:19 → M ED INP 15:20 → M MS5PR 09-04
PROVIDERS: ADMIT Internal Medicine; ATTEND Internal Medicine
DX: G92 Toxic encephalopathy (principal); G89.29 Other chronic pain; M54.16 Radiculopathy, lumbar region; G43.909 Migraine, unspecified, not intractable, without status migrainosus; F12.10 Cannabis abuse, uncomplicated; E11.9 Type 2 diabetes mellitus without complications; N18.30 Chronic kidney disease, stage 3 unspecified; I10 Essential (primary) hypertension; E03.9 Hypothyroidism, unspecified; E66.9 Obesity, unspecified; R26.9 Unspecified abnormalities of gait and mobility; Z87.820 Personal history of traumatic brain injury; Z79.899 Other long term (current) drug therapy; I67.89 Other cerebrovascular disease; Z88.1 Allergy status to other antibiotic agents; Z88.8 Allergy status to other drugs, medicaments and biological substances
CPT/HCPCS: 36415; 70450; 80048; 80076; 80307; 81001; 82550; 82553; 83036; 83690; 84439; 84443; 84484; 85025; 85027; 93005; 93041; 96372; 96374; 96375; 96376; 99285; G0480; J1650; J1885; J2270; J2405; U0002

== ENCOUNTER → 2020-09-06 | Outpatient (CLI) | payer OTHER ==
[~2020-09-06] MED LIST changes: +ATEN50TA2 PO; +BYDU1INJ SC; +ISOVUE-M 300 61% 15ML VIAL As Ordered ONE; +KETO10TAB PO; +LIDOCAINE 1% SDV 30ML VIAL As Ordered ONE; +METF750T36 PO; +PERC7.5T11 PO; +SYNT50TA PO; +TOPI100T9 PO; +diazePAM 5 MG TAB As Ordered ONE; +methylPREDNISolone SUSP 40MG/ML 1ML VIAL (DEPO MEDROL) As Ordered ONE; +oxyCODONE 5MG TAB As Ordered ONE
--- NOTE | 2020-09-06 13:42 | REP ---
INDICATION: LESI. Pain COMPARISON: None. TECHNIQUE: Four C-arm views of lower lumbar spine performed during the injection. FINDINGS: A needle is seen at the L4-5 level. IMPRESSION: 20 seconds of fluoroscopy time is utilized. <Electronically signed by Sim Zee > 09/06/20 [id number]
--- NOTE | 2020-09-16 02:08 | ECWPNPC ---
PATIENT NAME: ALEX JI : 1965 GENDER: MALE VISIT DATE: 09/06/2020 DISCHARGE DATE: 09/06/20 1248 VISIT LOCKED DATE TIME: PHYSICIAN: JAVON LEONARDO MD RESOURCE: JAVON LEONARDO MD REASON FOR APPOINTMENT 1. W/C L4-L5 LUMBAR EPIDURAL STEROID INJECTION HISTORY OF PRESENT ILLNESS GENERAL: -. FALL RISK SCREENING: SCREENING :TWO OR MORE FALLS WITH INJURY IN THE PAST YEAR FALL LAST SUNDAY DUE TO BLACKING OUT - WENT TO ED - DID CT SCAN AND BLOOD WORK - NOTHING FOUND. ALSO RECEIVED PAIN MEDICATIONS FOR PAIN CONTROL. PAIN SCREENING: PATIENT HAS A COMPLAINT OF ACUTE OR CHRONIC PAIN :YES LOCATION OF PAIN:NECK, LOW BACK, LEG(S), OTHER: BUTTOCKS INTENSITY OF PAIN (SCALE OF 1 TO 10):9 WHAT DOES YOUR PAIN FEEL LIKE:CONTINOUS, THROBBING, SHOOTING, OTHER ELECTRICAL DURATION:CONTINOUS, CONSTANT, STEADY, ALL DAY PAIN IS INCREASED BY:ACTIVITIES, PROLONGED STANDING, OTHERS WALKING, LAYING PAIN IS DECREASED BY:USE OF PAIN MEDICATIONS, SITTING, OTHERS ICE NURSING NOTE: -. PAIN CENTER INTAKE QUESTIONS: DO YOU HAVE A HISTORY OF MRSA? :NO DO YOU TAKE A BLOOD THINNERS? :NO DO YOU HAVE ANY BLEEDING DISORDERS? :NO ANY NEW NUMBNESS OR WEAKNESS IN YOUR LEGS OR ARMS? :NO ANY PACEMAKER,DEFIBRILLATOR, OR DORSAL COLUMN STIMULATOR? :NO DO YOU HAVE ANY RASHES OR OPEN SORES? :NO ARE YOU ALLERGIC TO IV DYE? :NO ARE YOU DIABETIC? :YES FSBS 94 ANY NEW PROBLEMS WITH YOUR MEDICATIONS? :NO HAVE YOU RECEIVED A VACCINE IN THE PAST 30 DAYS? :NO DO YOU PLAN TO RECEIVE A VACCINE IN THE NEXT 21 DAYS? :NO DO YOU TAKE ANY IMMUNOSUPPRESSIVE MEDICATIONS? :NO ANY HISTORY OF SEIZURES? :NO ANY HISTORY OF CARDIAC ISSUES OR EVENTS? :NO DO YOU HAVE SLEEP APNEA? :NO ANY RECENT HEAD INJURY? :NO DO YOU HAVE ANY NEW INFECTIONS? :NO IS THERE A CHANCE YOU COULD BE ? :NO ARE YOU BREAST FEEDING? :NO WHEN DID YOU LAST EAT? : 09/05/20 2200 WHEN DID YOU LAST DRINK? : 0600 WHAT DID YOU LAST DRINK? : WATER NAME OF PERSON DRIVING YOU HOME? : BRAD () DO YOU HAVE ANY OTHER QUESTIONS OR CONCERNS? : - CURRENT MEDICATIONS TAKING PINDOLOL 5 MG TABLET 1 TABLET ORALLY QID, NOTES: 0600 TAKING POTASSIUM CHLORIDE 10 MEQ (PRT) TABLET EXTENDED RELEASE 1 TABLET ORALLY TWICE DAILY, NOTES: 0600 TAKING METFORMIN HCL ER 750 MG TABLET EXTENDED RELEASE 24 HOUR ORALLY TWICE A DAY, NOTES: 09/05/20 2200 TAKING ATENOLOL 50 MG TABLET 1 TABLET ORALLY BID, NOTES: 0600 TAKING LEVOTHYROXINE SODIUM 50 MCG TABLET 1 TABLET ORALLY ONCE A DAY, NOTES: 0600 TAKING TRIAMTERENE-HCTZ 37.5-25 MG TABLET 1 TABLET IN THE MORNING ORALLY ONCE A DAY, NOTES: 09/05/20 1030 TAKING FLONASE ALLERGY RELIEF 50 MCG/ACT SUSPENSION 1 SPRAY IN EACH NOSTRIL NASALLY ONCE A DAY, NOTES: NONE RECENT TAKING MAY HAVE - - MEDICAL MARIJUANA DIRECTED, NOTES: 09/03/20 TAKING CYCLOBENZAPRINE HCL 10 MG TABLET 1 TABLET NEEDED ORALLY Q6-8H PRN FOR SEVERE MUSCLE SPASM PAIN #45 TAB. SHOULD LAST 30 DAYS, NOTES: 09/05/202199 TAKING TOPAMAX 100 MG TABLET 1 TABLET ORALLY FOR PAIN TWICE A DAY, NOTES: 06 TAKING LEVEMIR 100 UNIT/ML SOLUTION 16 UNITS SUBCUTANEOUS BID, NOTES: 09/05/20 0600 TAKING KETOROLAC TROMETHAMINE 10 MG TABLET 1 TABLET WITH FOOD OR MILK NEEDED ORALLY Q6H PRN FOR SEVERE PAIN MDD4, NOTES: 09/04/20 TAKING COLACE 100 MG CAPSULE 1 CAPSULE NEEDED ORALLY ONCE A DAY, NOTES: 09/05/20 0600 TAKING BYDUREON 2 MG PEN-INJECTOR DIRECTED SUBCUTANEOUS WEEKLY, NOTES: 08/30/20 TAKING AMITRIPTYLINE HCL 50 MG TABLET 3 ORALLY FOR PAIN ONCE A DAY, NOTES: 09/05/202199 TAKING PERCOCET 5-325 MG TABLET 1 ORALLY Q6H PRN MDD4, NOTES: 0600 NOT-TAKING NARCAN 4 MG/0.1ML LIQUID DIRECTED NASALLY FOR OPIOID OVERDOSE, NOTES: NEVER NOT-TAKING FENTANYL 12 MCG/HR PATCH 72 HOUR 1 PATCH TO SKIN TRANSDERMAL Q72 HR=MDD, NOTES: NOT TAKING MEDICATION LIST REVIEWED AND RECONCILED WITH THE PATIENT PAST MEDICAL HISTORY DM, HTN, CHRONIC PAIN , THYROID DISEASE, GERD, MIGRANES LEFT KNEE PAIN RIGHT SHOULDER LABRIUM TEAR FUSION AT 3-4 C ALLERGIES AZITHROMYCIN: LIP SWELLING - ALLERGY SUMATRIPTAN: FACIAL SWELLING - ALLERGY PROPOXYPHENE: PRICKLY FEELING, RASH, SOB - ALLERGY SURGICAL HISTORY FUSION C3-C4 1994 3 SURGURIES TO LEFT KNEE 1993 LEFT KNEE ARTHROSCOPY 05/2020 FAMILY HISTORY FATHER: 51 YRS, DIAGNOSED WITH DIABETES MOTHER: 50 YRS, OTHER MALIGNANT NEOPLASM OF UNSPECIFIED SITE 3 BROTHER(S) , 2 SISTER(S) . 1 SON(S) - HEALTHY. ON BROTHER R\/T PANCREATIC CANCER, ONE SISTER WITH MS \NBROTHER - COMPLICATIONS FROM AGENT ORANGE\NBROTHER - BLOOD CLOT. SOCIAL HISTORY GENERAL: TOBACCO USE ARE YOU A:NONSMOKER LATEX QUESTIONNAIRE LATEX ALLERGY : HAVE YOU EVER DEVELOPED ANY TYPE OF REACTION AFTER HANDLING LATEX PRODUCTS SUCH RUBBER GLOVES, CONDOMS, DIAPHRAGMS, BALLOONS, SOCKS, OR UNDERWEAR?NO LATEX ALLERGY : HAVE YOU EVER DEVELOPED ANY TYPE OF REACTION DURING OR AFTER DENTAL APPOINTMENT, VAGINAL/RECTAL EXAMINATION, SURGICAL PROCEDURE, OR ANY OTHER EXPOSURE?NO LATEX RISK : HAVE YOU EVER HAD ANY DIFFICULTY BREATHING OR HIVES AFTER EATING OR HANDLING ANY FRUITS, OR VEGETABLES; SUCH KIWI, BANANAS, STONE FRUITS, OR CHESTNUTSNO LATEX RISK : DO YOU HAVE A PREVIOUS PERSONAL HISTORY OF MORE THAN NINE SURGERIES, SPINA BIFIDA, OR REPEATED CATHERIZATIONS? NO LATEX RISK : ARE YOU FREQUENTLY EXPOSED TO LATEX PRODUCTS IN YOUR OCCUPATION?NO DATE ASKED : 08/04/2020 LUNG CANCER SCREENING SMOKING STATUS:NON SMOKER ALCOHOL SCREENING DID YOU HAVE A DRINK CONTAINING ALCOHOL IN THE PAST YEAR?NO POINTS0 INTERPRETATIONNEGATIVE RECREATIONAL DRUG USE DRUG USE?NO HAS PRESCRIPTION FOR MEDICAL MARIJUANA. CAFFEINE CAFFEINE USE?NO HIV / HEP-C SCREENING HIV TEST OFFERED TO PATIENT:YES DATE OFFERED:01/17/2018 TEST ACCEPTED:NO HEP-C TEST OFFERED TO PATIENT:YES DATE OFFERED:01/17/2018 REASON:PATIENT DECLINED TEST ACCEPTED:NO REASON:PATIENT DECLINED BROCHURE PROVIDED TO PATIENTNO YARSANISM [id number] CONFUCIANIST LANGUAGE LANGUAGES SPOKEN:[place]IZ[place] OF [place] LEARNING BARRIERS / SPECIAL NEEDS CHANGE FROM LAST VISIT?NO BARRIERS TO LEARNING?NO HEARING IMPAIRED?NO VISION IMPAIRED?YES :CORRECTIVE LENSES COGNITIVELY IMPAIRED?NO READINESS TO LEARN?YES LEARNING PREFERENCES?YES :BOOKLETS, HANDOUTS LEARNING CAPABILITIES PRESENT?YES EMOTIONAL BARRIERS?NO SPECIAL DEVICES?YES :CANE, WHEELCHAIR SOURCING ENGINEER NEEDED?NO DOMESTIC VIOLENCE DO YOU FEEL SAFE IN YOUR ENVIRONMENT?YES PAIN CLINIC PFS, CLERGY, PUBLIC HEALTH REFERRALS PFS REFERRAL NEEDED?NO CLERGY REFERRAL NEEDED?NO PUBLIC HEALTH REFERRAL NEEDED?NO WAS THE PROVIDER NOTIFIED OF ANY PERTINENT INFO?YES N/A HAS THE PATIENT BEEN EDUCATED REGARDING HIS/HER PLAN OF CARE?YES HAS THE PATIENT BEEN EDUCATED REGARDING PAIN, THE RISK FOR PAIN, THE IMPORTANCE OF EFFECTIVE PAIN MANAGEMENT, AND THE PAIN ASSESSMENT PROCESS?YES ADVANCE DIRECTIVE ADVANCE DIRECTIVE DISCUSSED WITH PATIENT:YES HCP - SHE JI () PAT DONE 4-29 DS. HOSPITALIZATION/MAJOR DIAGNOSTIC PROCEDURE SURGERIES HYPERTENSION HEAD INJURY 03/1986 FALL/ PAIN CONTROL 08/2020 VITAL SIGNS WT REF, HT 78 IN, BMI 36.03 INDEX, BP 138/92 MM HG, HR 95 /MIN, RR 18 /MIN, TEMP 97.0 F, OXYGEN SAT % 97%, SAFE IN ENV? (Y/N) Y, NA INITIALS AW 1050, REVIEWED BY: JSJ. TIESHA RN. EXAMINATION GENERAL EXAMINATION: THE PATIENT IS ALERT, ORIENTED TIMES THREE AND COOPERATIVE. HEART SHOWS REGULAR RHYTHM, NO MURMURS AND NO GALLOPS. LUNGS ARE CLEAR TO AUSCULTATION. ASSESSMENTS INTERVERTEBRAL DISC DISORDER WITH RADICULOPATHY OF LUMBAR REGION - M51.16 (PRIMARY), RISK: (NULL) TREATMENT INTERVERTEBRAL DISC DISORDER WITH RADICULOPATHY OF LUMBAR REGION [facility] FLUORO GUIDE SPINE INJECTION (PAIN)[id number] MEDICATION: VALIUM TAB 10MG ORALLY (DIAZEPAM)SAMY MOTLEY 09/06/2020 11:11:44 AM > LOT: [id number], EXP: 05/04. TO MCKEE RN 09/06/2020 11:13:39 AM > VERIFIED. SAMY MOTLEY 09/06/2020 11:16:44 AM > ADMINISTERED MEDICATION: OXYCODONE HCL TAB 10MG ORALLYSAMY MOTLEY 09/06/2020 11:12:38 AM > LOT: [id number], EXP: 11/2021. TO MCKEE RN 09/06/2020 11:13:54 AM > VERIFIED. SAMY MOTLEY 09/06/2020 11:17:04 AM > ADMINISTERED PROCEDURES PAIN NURSING RECORD PRE-PROCEDURE IV SITE N/A, PRE-PROCEDURE ORAL MEDICATIONS VALIUM 10 MG & OXYCODONE 10 MG PROCEDURE IN ROOM 1150, PHYSICIAN IN ROOM 1208, START 1211, FINISH 1218, PHYSICIAN OUT OF ROOM 1220, OUT OF ROOM 1228, STEROID DEPOMEDROL, O2 RA, ECG NORMAL SINUS, PATIENT SHIELDED YES, SAFETY STRAP YES, PREP BETADINE BY Yong MOTLEY RN, IV INFUSED N/A, DRESSING TEGADERM BY DR. LEONARDO LOC: SAMY MOTLEY 09/06/2020 12:12:38 PM > , 1. ALERT, ORIENTED RESP: SAMY MOTLEY 09/06/2020 12:12:42 PM > , 1. REGULAR, NO DYSPNEA COLOR: SAMY MOTLEY 09/06/2020 12:12:46 PM > , 1. PINK SKIN: SAMY MOTLEY 09/06/2020 12:12:51 PM > , 1. WARM, DRY POSITION: SAMY MOTLEY 09/06/2020 12:13:01 PM > , 1. PRONE VITALS: SAMY MOTLEY 09/06/2020 11:58:31 AM > 161/104, 87, 18, 98% SAMY MOTLEY 09/06/2020 12:13:31 PM > 164/108, 90, 18, 97% SAMY MOTLEY 09/06/2020 12:15:05 PM > 167/110, 90, 18, 98% SAMY MOTLEY 09/06/2020 12:19:50 PM > 150/105, 87, 18, 96% SAMY MOTLEY 09/06/2020 12:48:40 PM > 146/96, 88, 18, 96% DISCHARGE: POST PAIN 6, DRESSING SITE DRY AND INTACT, IV N/A, GAIT STEADY, TEACHING COMPLETED, PATIENT ACKNOWLEDGES UNDERSTANDING YES, PATIENT DISCHARGED AT 1247 PN WORKMANS' COMP OPINION IN YOUR OPINION, WAS THE INCIDENT THAT THE PATIENT DESCRIBED THE COMPETENT MEDICAL CAUSE OF THIS INJURY/ILLNESS? YES ARE THE PATIENT'S COMPLAINTS CONSISTENT WITH HIS/HER HISTORY OF THE INJURY/ILLNESS? YES IS THE PATIENT'S HISTORY OF THE INJURY/ILLNESS CONSISTENT WITH YOUR OBJECTIVE FINDING? YES WHAT IS THE PERCENTAGE OF TEMPORARY IMPAIRMENT? TOTAL = 100% . IS THE PATIENT WORKING? NO . DOCTOR ON SITE: JAVON VALDEZ MD PRE PROCEDURE DIAGNOSIS LUMBAR DISC DISORDER WITH RADICULOPATHY POST PROCEDURE DIAGNOSIS LUMBAR DISC DISORDER WITH RADICULOPATHY PROCEDURE LUMBAR EPIDURAL STEROID INJECTION UNDER FLUOROSCOPIC GUIDANCE SURGEON DR. JAVON LEONARDO HEAD OF BUSINESS DEVELOPMENT NONE ANESTHESIA LOCAL PRE PROCEDURE NOTE THE PATIENT HAS A HISTORY OF CHRONIC LOW BACK PAIN. I EVALUATED THE PATIENT AND REVIEWED THE CHART. I WENT OVER THE RISKS, ALTERNATIVES, AND BENEFITS ASSOCIATED WITH THIS PROCEDURE. I DISCUSSED THAT THE USE OF STEROIDS MAY CONTRIBUTE TO IMMUNOSUPPRESSION OF THE PATIENT'S BODY AGAINST INFECTIONS SUCH COVID-19. THE PATIENT IS AWARE OF THE POTENTIAL COMPLICATIONS ASSOCIATED WITH THIS VIRUS, INCLUDING, BUT NOT LIMITED TO, . THE PATIENT WOULD LIKE TO PROCEED AND GIVE CONSENT TO PERFORMED THE PROCEDURE. THE PATIENT DENIES UNEXPLAINABLE WEIGHT LOSS, FEVER, CHILLS, OR NEW CHANGES IN URINARY OR BOWEL CONTROL. THE PATIENT IS COVID-19 NEGATIVE DESCRIPTION OF PROCEDURE THE PATIENT WAS BROUGHT TO THE PROCEDURE ROOM AND PLACED IN THE PRONE POSITION. THE LUMBOSACRAL AREA WAS CLEANED WITH BETADINE SOLUTION AND DRAPED ASEPTICALLY. THE PROCEDURE WAS DONE UNDER STERILE CONDITIONS. A TIMEOUT WAS PERFORMED WHERE LATERALITY AND THE SITE OF THE PROCEDURE WERE CHECKED AND CONFIRMED WITH EVERYONE IN THE ROOM. UNDER FLUOROSCOPIC GUIDANCE, THE TARGET POINT WAS SELECTED AT THE INTERLAMINAR LEVEL OF L4-L5. I CONFIRMED AGAIN WITH EVERYONE IN THE ROOM THE LATERALITY OF THE TARGET 1211. LIDOCAINE WAS USED TO NUMB THE SKIN AND THE SUBCUTANEOUS TISSUE BELOW IT. EPIDURAL TUOHY NEEDLE, 17-GAUGE 5 INCH, WAS ADVANCED UNDER FLUOROSCOPIC GUIDANCE AND FOLLOWING PATIENT FEEDBACK UNTIL THE EPIDURAL SPACE WAS REACHED 8 CM DEEP INTO THE SKIN BY THE LOSS OF RESISTANCE TECHNIQUE. ISOVUE-M DYE 30%, 0.25 ML, WAS INJECTED SHOWING ADEQUATE SPREAD OF THE DYE. THEN, A SOLUTION OF 3 ML OF NORMAL SALINE WITH DEPO-MEDROL 80 MG WAS INJECTED SLOWLY FOLLOWING PATIENT FEEDBACK. THE MEDICATIONS WERE VERIFIED WITH THE NURSE. THERE WAS NO EVIDENCE OF BLOOD, PARESTHESIA OR CEREBROSPINAL FLUID DURING THE PROCEDURE. THE PATIENT WAS SENT TO THE RECOVERY ROOM. THE PATIENT WAS MOVING THE EXTREMITIES AND DOING WELL. THERE WERE NO COMPLICATIONS DURING THE PROCEDURE. ESTIMATED BLOOD LOSS WAS LESS THAN 5 ML. FLUOROSCOPY TIME WAS 19 SECONDS POST PROCEDURE NOTE THE PATIENT WILL BE SEEN IN A FOLLOW UP IN THE NEXT FEW WEEKS. I AM LOOKING FOR LONG LASTING RELIEF FOR THE PATIENT WITH THIS INTERVENTION. INSTRUCTIONS WERE GIVEN, QUESTIONS WERE ANSWERED, AND THE PATIENT EXPRESSED UNDERSTANDING AND AGREES WITH THE PLAN. I, ALFREDO JIMENEZ, DOCUMENTED THE ABOVE INFORMATION ACTING A SCRIBE FOR DR. LEONARDO. I HAVE REVIEWED THE ABOVE DOCUMENT, WRITTEN BY ALFREDO JIMENEZ, ASSISTANT PROFESSOR OF ART, AND I VERIFY THAT IT IS ACCURATE PROCEDURE CODES 25469 LUMBAR/SACRAL W/ IMAGING DISPOSITION & COMMUNICATION FOLLOW UP FOLLOW UP WITH MANAGER ACADEMIC (REASON: W/C POST L4-L5 LESI) ELECTRONICALLY SIGNED BY JAVON LEONARDO MD, MD ON 09/15/2020 AT 09:18 AM EST DISCLAIMER : THIS IS A VISIT SUMMARY EXTRACTED FROM THE [employer] CHART. IT IS NOT A COPY OF THE [employer] PROGRESS NOTE. NAHEED
== END ==
LOC: M PAIN 10:30
PROVIDERS: ATTEND Anesthesiology
DX: M51.16 Intervertebral disc disorders with radiculopathy, lumbar region (principal); E11.9 Type 2 diabetes mellitus without complications; I10 Essential (primary) hypertension; G89.29 Other chronic pain; E07.9 Disorder of thyroid, unspecified; K21.9 Gastro-esophageal reflux disease without esophagitis; G43.909 Migraine, unspecified, not intractable, without status migrainosus; Z98.1 Arthrodesis status; Z79.891 Long term (current) use of opiate analgesic; Z79.899 Other long term (current) drug therapy; Z88.1 Allergy status to other antibiotic agents; Z88.8 Allergy status to other drugs, medicaments and biological substances
CPT/HCPCS: 62323; J1030; Q9967

== ENCOUNTER → 2020-09-20 | Outpatient (CLI) | payer OTHER ==
[~2020-09-20] MED LIST changes: -ISOVUE-M 300 61% 15ML VIAL As Ordered ONE; -LIDOCAINE 1% SDV 30ML VIAL As Ordered ONE; -diazePAM 5 MG TAB As Ordered ONE; -methylPREDNISolone SUSP 40MG/ML 1ML VIAL (DEPO MEDROL) As Ordered ONE; -oxyCODONE 5MG TAB As Ordered ONE
--- NOTE | 2020-09-25 02:27 | ECWPNPC ---
PATIENT NAME: ALEX JI : 1965 GENDER: MALE VISIT DATE: 09/20/2020 DISCHARGE DATE: 09/20/20 1109 VISIT LOCKED DATE TIME: PHYSICIAN: BLANE EUGENE RESOURCE: BLANE EUGENE REASON FOR APPOINTMENT 1. W/C POST L4-L5 LESI HISTORY OF PRESENT ILLNESS GENERAL: HERE FOR POST PROCEDURE FOLLOW-UP. HAD L4-5 LUMBAR EPIDURAL STEROID INJECTION ON 09/06/2020. REPORTING MARKED REDUCTION IN LOW BACK PAIN AND RADICULAR SYMPTOMS OF THE LEG POST PROCEDURE. REPORTING IMPROVED ACTIVITY TOLERANCE POST PROCEDURE. REPORTING INCREASE IN HEADACHE. HAD SEVERE INCREASE IN HEADACHES THAT REQUIRED EMERGENCY ROOM VISIT 1 WEEK AGO. HE IS OVERDUE FOR HIS EVERY 3 MONTH BOTOX AND FEELS THOUGH HEADACHES ARE RETURNING. CURRENTLY WE HAVE A REQUEST INTO WORKMEN'S COMP FOR BOTOX INJECTION. THIS IS A FOLLOW-UP FOR A WORK RELATED INJURY.-. FALL RISK SCREENING: SCREENING :TWO OR MORE FALLS WITH INJURY IN THE PAST YEAR PAIN SCREENING: PATIENT HAS A COMPLAINT OF ACUTE OR CHRONIC PAIN :YES LOCATION OF PAIN:HEAD, FACE, NECK, BOTH SHOULDERS, LOW BACK, LEG(S) INTENSITY OF PAIN (SCALE OF 1 TO 10):4-5 7-8 IN HEAD AND NECK WHAT DOES YOUR PAIN FEEL LIKE:ACHING, TENDER, THROBBING, SORE, OTHER ELECTRICAL SENSATION DURATION:CONTINOUS PAIN IS INCREASED BY:PROLONGED STANDING, ACTIVITIES TURNING TO LEFT PAIN IS DECREASED BY:SITTING, USE OF PAIN MEDICATIONS ICE NURSING NOTE: -. PAIN CENTER INTAKE QUESTIONS: DO YOU HAVE A HISTORY OF MRSA? :NO DO YOU TAKE A BLOOD THINNERS? :NO DO YOU HAVE ANY BLEEDING DISORDERS? :NO ANY NEW NUMBNESS OR WEAKNESS IN YOUR LEGS OR ARMS? :NO ANY PACEMAKER,DEFIBRILLATOR, OR DORSAL COLUMN STIMULATOR? :NO DO YOU HAVE ANY RASHES OR OPEN SORES? :NO ARE YOU ALLERGIC TO IV DYE? :NO ARE YOU DIABETIC? :YES ANY NEW PROBLEMS WITH YOUR MEDICATIONS? :NO HAVE YOU RECEIVED A VACCINE IN THE PAST 30 DAYS? :NO DO YOU PLAN TO RECEIVE A VACCINE IN THE NEXT 21 DAYS? :NO DO YOU NEED ANY PRESCRIPTION? :NO DO YOU TAKE ANY IMMUNOSUPPRESSIVE MEDICATIONS? :NO IS THERE A CHANCE YOU COULD BE ? :NO ARE YOU BREAST FEEDING? :NO CURRENT MEDICATIONS TAKING PINDOLOL 5 MG TABLET 1 TABLET ORALLY QID TAKING POTASSIUM CHLORIDE 10 MEQ (PRT) TABLET EXTENDED RELEASE 1 TABLET ORALLY TWICE DAILY TAKING METFORMIN HCL ER 750 MG TABLET EXTENDED RELEASE 24 HOUR ORALLY TWICE A DAY TAKING ATENOLOL 50 MG TABLET 1 TABLET ORALLY BID TAKING LEVOTHYROXINE SODIUM 50 MCG TABLET 1 TABLET ORALLY ONCE A DAY TAKING TRIAMTERENE-HCTZ 37.5-25 MG TABLET 1 TABLET IN THE MORNING ORALLY ONCE A DAY TAKING FLONASE ALLERGY RELIEF 50 MCG/ACT SUSPENSION 1 SPRAY IN EACH NOSTRIL NASALLY ONCE A DAY NEEDED TAKING MAY HAVE - - MEDICAL MARIJUANA DIRECTED TAKING CYCLOBENZAPRINE HCL 10 MG TABLET 1 TABLET NEEDED ORALLY Q6-8H PRN FOR SEVERE MUSCLE SPASM PAIN #45 TAB. SHOULD LAST 30 DAYS TAKING TOPAMAX 100 MG TABLET 1 TABLET ORALLY FOR PAIN TWICE A DAY TAKING LEVEMIR 100 UNIT/ML SOLUTION 16 UNITS SUBCUTANEOUS BID TAKING KETOROLAC TROMETHAMINE 10 MG TABLET 1 TABLET WITH FOOD OR MILK NEEDED ORALLY Q6H PRN FOR SEVERE PAIN MDD4 TAKING COLACE 100 MG CAPSULE 1 CAPSULE NEEDED ORALLY ONCE A DAY TAKING BYDUREON 2 MG PEN-INJECTOR DIRECTED SUBCUTANEOUS WEEKLY TAKING AMITRIPTYLINE HCL 50 MG TABLET 3 ORALLY FOR PAIN ONCE A DAY TAKING PERCOCET 5-325 MG TABLET 1 ORALLY Q6H PRN MDD4 NOT-TAKING NARCAN 4 MG/0.1ML LIQUID DIRECTED NASALLY FOR OPIOID OVERDOSE, NOTES: NEVER NOT-TAKING FENTANYL 12 MCG/HR PATCH 72 HOUR 1 PATCH TO SKIN TRANSDERMAL Q72 HR=MDD, NOTES: NOT TAKING MEDICATION LIST REVIEWED AND RECONCILED WITH THE PATIENT PAST MEDICAL HISTORY DM, HTN, CHRONIC PAIN , THYROID DISEASE, GERD, MIGRANES LEFT KNEE PAIN RIGHT SHOULDER LABRIUM TEAR FUSION AT 3-4 C ALLERGIES AZITHROMYCIN: LIP SWELLING - ALLERGY SUMATRIPTAN: FACIAL SWELLING - ALLERGY PROPOXYPHENE: PRICKLY FEELING, RASH, SOB - ALLERGY SURGICAL HISTORY FUSION C3-C4 1994 3 SURGURIES TO LEFT KNEE 1993 LEFT KNEE ARTHROSCOPY 05/2020 FAMILY HISTORY FATHER: 51 YRS, DIAGNOSED WITH DIABETES MOTHER: 50 YRS, OTHER MALIGNANT NEOPLASM OF UNSPECIFIED SITE 3 BROTHER(S) , 2 SISTER(S) . 1 SON(S) - HEALTHY. ON BROTHER R\/T PANCREATIC CANCER, ONE SISTER WITH MS \NBROTHER - COMPLICATIONS FROM AGENT ORANGE\NBROTHER - BLOOD CLOT. SOCIAL HISTORY GENERAL: TOBACCO USE ARE YOU A:NONSMOKER LATEX QUESTIONNAIRE LATEX ALLERGY : HAVE YOU EVER DEVELOPED ANY TYPE OF REACTION AFTER HANDLING LATEX PRODUCTS SUCH RUBBER GLOVES, CONDOMS, DIAPHRAGMS, BALLOONS, SOCKS, OR UNDERWEAR?NO LATEX ALLERGY : HAVE YOU EVER DEVELOPED ANY TYPE OF REACTION DURING OR AFTER DENTAL APPOINTMENT, VAGINAL/RECTAL EXAMINATION, SURGICAL PROCEDURE, OR ANY OTHER EXPOSURE?NO DATE ASKED : 08/04/2020 LATEX RISK : HAVE YOU EVER HAD ANY DIFFICULTY BREATHING OR HIVES AFTER EATING OR HANDLING ANY FRUITS, OR VEGETABLES; SUCH KIWI, BANANAS, STONE FRUITS, OR CHESTNUTSNO LATEX RISK : DO YOU HAVE A PREVIOUS PERSONAL HISTORY OF MORE THAN NINE SURGERIES, SPINA BIFIDA, OR REPEATED CATHERIZATIONS? NO LATEX RISK : ARE YOU FREQUENTLY EXPOSED TO LATEX PRODUCTS IN YOUR OCCUPATION?NO LUNG CANCER SCREENING SMOKING STATUS:NON SMOKER ALCOHOL SCREENING DID YOU HAVE A DRINK CONTAINING ALCOHOL IN THE PAST YEAR?NO POINTS0 INTERPRETATIONNEGATIVE RECREATIONAL DRUG USE DRUG USE?NO HAS PRESCRIPTION FOR MEDICAL MARIJUANA. CAFFEINE CAFFEINE USE?NO HIV / HEP-C SCREENING HIV TEST OFFERED TO PATIENT:YES DATE OFFERED:01/17/2018 TEST ACCEPTED:NO HEP-C TEST OFFERED TO PATIENT:YES DATE OFFERED:01/17/2018 REASON:PATIENT DECLINED TEST ACCEPTED:NO REASON:PATIENT DECLINED BROCHURE PROVIDED TO PATIENTNO VOODOO [id number] MANDAEISM LANGUAGE LANGUAGES SPOKEN:[place]TH [place]ORE[place] LEARNING BARRIERS / SPECIAL NEEDS CHANGE FROM LAST VISIT?NO BARRIERS TO LEARNING?NO HEARING IMPAIRED?NO VISION IMPAIRED?YES COGNITIVELY IMPAIRED?NO :CORRECTIVE LENSES READINESS TO LEARN?YES LEARNING PREFERENCES?YES :BOOKLETS, HANDOUTS LEARNING CAPABILITIES PRESENT?YES EMOTIONAL BARRIERS?NO SPECIAL DEVICES?YES :CANE, WHEELCHAIR GLORY HOLE TENDER NEEDED?NO DOMESTIC VIOLENCE DO YOU FEEL SAFE IN YOUR ENVIRONMENT?YES PAIN CLINIC PFS, CLERGY, PUBLIC HEALTH REFERRALS PFS REFERRAL NEEDED?NO CLERGY REFERRAL NEEDED?NO PUBLIC HEALTH REFERRAL NEEDED?NO WAS THE PROVIDER NOTIFIED OF ANY PERTINENT INFO?YES N/A HAS THE PATIENT BEEN EDUCATED REGARDING HIS/HER PLAN OF CARE?YES HAS THE PATIENT BEEN EDUCATED REGARDING PAIN, THE RISK FOR PAIN, THE IMPORTANCE OF EFFECTIVE PAIN MANAGEMENT, AND THE PAIN ASSESSMENT PROCESS?YES ADVANCE DIRECTIVE ADVANCE DIRECTIVE DISCUSSED WITH PATIENT:YES HCP - SHE JI () PAT DONE 4-29 DS. HOSPITALIZATION/MAJOR DIAGNOSTIC PROCEDURE SURGERIES HYPERTENSION HEAD INJURY 03/1986 FALL/ PAIN CONTROL 08/2020 REVIEW OF SYSTEMS CONSTITUTIONAL: ANY RECENT FEVER NO . CHILLS NO . WEIGHT CHANGE OF UNKNOWN REASONS NO . GASTROENTEROLOGY: NEW UNEXPLAINABLE CHANGES IN BOWEL CONTROL NO . CONSTIPATION NO . GENITOURINARY: ANY NEW CHANGE IN BLADDER CONTROL? NO . NEUROLOGY: NEW ONSET DIZZINESS OR NEUROLOGICAL CHANGES NOT MENTIONED NO . NEW NUMBNESS OR PAIN PATTERNS NOT MENTIONED AND PERTINENT TO TODAY'S VISIT NO . CARDIOLOGY: NEW CHEST PRESSURE NO . NEW CHEST PAIN NO . RESPIRATORY: UNEXPLAINABLE COUGH NO . NEW SHORTNESS OF BREATH NO . VITAL SIGNS WT 322.2 LBS, HT 78 IN, BMI 37.23 INDEX, BP 129/80 MM HG, HR 97 /MIN, RR 20 /MIN, TEMP 97.5 F, OXYGEN SAT % 96%, SAFE IN ENV? (Y/N) YES, NA INITIALS MI 10: 1022 REVIEWED. Ishmael MCKEE RN. EXAMINATION GENERAL EXAMINATION: GENERAL AWAKE,ALERT ,PLEASANT . WALKS WITH ASSISTANCE OF CANE WITH SLOW ANTALGIC GAIT. PSYCH AFFECT NORMAL . LUNGS: LUNG OWENS ARE CLEAR TO AUSCULTATION BILATERALLY. GOOD MOVEMENT OF AIR . HEART: S1, S2 IN A REGULAR RATE AND RHYTHM. NO SIGNIFICANT MURMURS, RUBS OR GALLOPS NOTED . 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 WE ARE IN THE PROCESS OF REDUCING AND DISCONTINUING PERCOCET 5/325. TODAY I'VE ADVISED HIM TO REDUCE MAXIMUM DAILY DOSE OF PERCOCET TO 3 PER DAY WITH #90 TABLETS FOR 30 DAY SUPPLY. SPOKE WITH ALICIA CURTIS, IN REGARDS TO BOTOX REQUEST/WORKMEN'S COMP. ENCOURAGED PATIENT TO CONTACT US IF HE DOESN'T HEAR FROM OUR OFFICE IN REGARDS TO BOTOX INJECTIONS BY THE END OF THE WEEK. URINE FOR TOXICOLOGY TODAY. FOLLOW-UP POST-BOTOX/REVIEW URINE TOXICOLOGY. PROCEDURES PN WORKMANS' COMP OPINION IN YOUR OPINION, WAS THE INCIDENT THAT THE PATIENT DESCRIBED THE COMPETENT MEDICAL CAUSE OF THIS INJURY/ILLNESS? YES ARE THE PATIENT'S COMPLAINTS CONSISTENT WITH HIS/HER HISTORY OF THE INJURY/ILLNESS? YES IS THE PATIENT'S HISTORY OF THE INJURY/ILLNESS CONSISTENT WITH YOUR OBJECTIVE FINDING? YES WHAT IS THE PERCENTAGE OF TEMPORARY IMPAIRMENT? MARKED = 75% IS THE PATIENT WORKING? NO DOCTOR ON SITE: JAVON VALDEZ MD PROCEDURE CODES FA211 ESTABILISHED PATIENT [facility] CHARGE DISPOSITION & COMMUNICATION FOLLOW UP AWAITING WORKMEN'S COMP APPROVAL FOR BOTOX INJECTIONS (REASON: POST BOTOX/MEDICATION MANAGEMENT/REVIEW URINE TOXICOLOGY) ELECTRONICALLY SIGNED BY MEKA BAPTISTE ON 09/24/2020 AT 02:44 PM EST DISCLAIMER : THIS IS A VISIT SUMMARY EXTRACTED FROM THE [employer] CHART. IT IS NOT A COPY OF THE [employer] PROGRESS NOTE. NAHEED
== END ==
LOC: M PAIN 09:30
PROVIDERS: ATTEND Nurse Practitioner Family
DX: G89.29 Other chronic pain (principal); G43.719 Chronic migraine without aura, intractable, without status migrainosus; M51.16 Intervertebral disc disorders with radiculopathy, lumbar region; E11.9 Type 2 diabetes mellitus without complications; E03.9 Hypothyroidism, unspecified; Z88.1 Allergy status to other antibiotic agents; Z88.5 Allergy status to narcotic agent; Z88.8 Allergy status to other drugs, medicaments and biological substances; Z79.84 Long term (current) use of oral hypoglycemic drugs; Z79.891 Long term (current) use of opiate analgesic; Z79.899 Other long term (current) drug therapy

== ENCOUNTER → 2020-10-21 | Outpatient (CLI) | payer OTHER | LOC: M LABSMTC 12:37 | PROVIDERS: ATTEND Anesthesiology | DX: Z20.822 Contact with and (suspected) exposure to COVID-19 (principal) ==

== ENCOUNTER → 2020-10-26 | Outpatient (CLI) | payer OTHER ==
[~2020-10-26] MED LIST changes: +BOTOX THERAPEUTIC 100 UNIT VIAL (J0585 PER 1 UNIT) IM ONE; +diazePAM 5MG TABLET As Ordered ONE; +oxyCODONE 5MG TAB As Ordered ONE
--- NOTE | 2020-10-28 03:34 | ECWPNPC ---
PATIENT NAME: ALEX JI : 1965 GENDER: MALE VISIT DATE: 10/26/2020 DISCHARGE DATE: 10/26/20 1646 VISIT LOCKED DATE TIME: PHYSICIAN: JAVON LEONARDO MD RESOURCE: JAVON LEONARDO MD REASON FOR APPOINTMENT 1. BOTOX INJECTIONS TO HEAD, NECK AND SHOULDER AREAS HISTORY OF PRESENT ILLNESS GENERAL: -. FALL RISK SCREENING: SCREENING :TWO OR MORE FALLS WITH INJURY IN THE PAST YEAR PAIN SCREENING: PATIENT HAS A COMPLAINT OF ACUTE OR CHRONIC PAIN :YES LOCATION OF PAIN:HEAD, NECK, BOTH SHOULDERS INTENSITY OF PAIN (SCALE OF 1 TO 10):9 AVERAGE 8 WHAT DOES YOUR PAIN FEEL LIKE:ACHING, CONTINOUS, STABBING, TENDER, THROBBING, SORE DURATION:CONTINOUS, CONSTANT, AWAKENS FROM SLEEP PAIN IS INCREASED BY: MOVEMENT, TRYING TO MOVE ARMS, PROLONGED SITTING, STANDING OR LYING DOWN PAIN IS DECREASED BY: MEDS, BOTOX INJECTIONS NURSING NOTE: -. PAIN CENTER INTAKE QUESTIONS: DO YOU HAVE A HISTORY OF MRSA? :NO DO YOU TAKE A BLOOD THINNERS? :NO DO YOU HAVE ANY BLEEDING DISORDERS? :NO ANY NEW NUMBNESS OR WEAKNESS IN YOUR LEGS OR ARMS? :NO ANY PACEMAKER,DEFIBRILLATOR, OR DORSAL COLUMN STIMULATOR? :NO DO YOU HAVE ANY RASHES OR OPEN SORES? :NO ARE YOU ALLERGIC TO IV DYE? :NO ARE YOU DIABETIC? :YES ANY NEW PROBLEMS WITH YOUR MEDICATIONS? :NO HAVE YOU RECEIVED A VACCINE IN THE PAST 30 DAYS? :NO DO YOU PLAN TO RECEIVE A VACCINE IN THE NEXT 21 DAYS? :NO DO YOU TAKE ANY IMMUNOSUPPRESSIVE MEDICATIONS? :NO ANY HISTORY OF SEIZURES? :NO ANY HISTORY OF CARDIAC ISSUES OR EVENTS? :NO HYPERTENSION DO YOU HAVE SLEEP APNEA? :NO ANY RECENT HEAD INJURY? :NO DO YOU HAVE ANY NEW INFECTIONS? :NO IS THERE A CHANCE YOU COULD BE ? :NO ARE YOU BREAST FEEDING? :NO WHEN DID YOU LAST EAT? : 10/26/2020 0600 WHEN DID YOU LAST DRINK? : 10/26/2020 WHAT DID YOU LAST DRINK? : WATER NAME OF PERSON DRIVING YOU HOME? : SHE DO YOU HAVE ANY OTHER QUESTIONS OR CONCERNS? : NONE CURRENT MEDICATIONS TAKING PINDOLOL 5 MG TABLET 1 TABLET ORALLY QID, NOTES: 10/26/2020 0600 TAKING POTASSIUM CHLORIDE 10 MEQ (PRT) TABLET EXTENDED RELEASE 1 TABLET ORALLY TWICE DAILY, NOTES: 10/26/2020 0600 TAKING METFORMIN HCL ER 750 MG TABLET EXTENDED RELEASE 24 HOUR ORALLY TWICE A DAY, NOTES: 10/25/2020 1800 TAKING ATENOLOL 50 MG TABLET 1 TABLET ORALLY BID, NOTES: 10/26/2020 0600 TAKING LEVOTHYROXINE SODIUM 50 MCG TABLET 1 TABLET ORALLY ONCE A DAY, NOTES: 10/26/2020 0600 TAKING TRIAMTERENE-HCTZ 37.5-25 MG TABLET 1 TABLET IN THE MORNING ORALLY ONCE A DAY, NOTES: 10/26/2020 0600 TAKING FLONASE ALLERGY RELIEF 50 MCG/ACT SUSPENSION 1 SPRAY IN EACH NOSTRIL NASALLY ONCE A DAY NEEDED, NOTES: 10/25/2020 TAKING MAY HAVE - - MEDICAL MARIJUANA DIRECTED, NOTES: 10/25/2020 HS TAKING CYCLOBENZAPRINE HCL 10 MG TABLET 1 TABLET NEEDED ORALLY Q6-8H PRN FOR SEVERE MUSCLE SPASM PAIN #45 TAB. SHOULD LAST 30 DAYS, NOTES: 10/25/2020 TAKING LEVEMIR 100 UNIT/ML SOLUTION 16 UNITS SUBCUTANEOUS BID, NOTES: 10/25/2020 TAKING KETOROLAC TROMETHAMINE 10 MG TABLET 1 TABLET WITH FOOD OR MILK NEEDED ORALLY Q6H PRN FOR SEVERE PAIN MDD4, NOTES: 10/25/2020 TAKING COLACE 100 MG CAPSULE 1 CAPSULE NEEDED ORALLY ONCE A DAY TAKING BYDUREON 2 MG PEN-INJECTOR DIRECTED SUBCUTANEOUS WEEKLY TAKING AMITRIPTYLINE HCL 50 MG TABLET 3 ORALLY FOR PAIN ONCE A DAY TAKING PERCOCET 5-325 MG TABLET 1 ORALLY Q6H PRN MDD4, NOTES: MDD 3 TAKING BOTOX 100 UNIT SOLUTION RECONSTITUTED FOR IM INJECTION AT THE HEAD, NECK AND SHOULDER MUSCLES ICD G43.709 BOTOX APPT AT 2:30PM ON 10/25/2020. TAKING TOPAMAX 100 MG TABLET 1 TABLET ORALLY FOR PAIN TWICE A DAY NOT-TAKING NARCAN 4 MG/0.1ML LIQUID DIRECTED NASALLY FOR OPIOID OVERDOSE, NOTES: NEVER NOT-TAKING FENTANYL 12 MCG/HR PATCH 72 HOUR 1 PATCH TO SKIN TRANSDERMAL Q72 HR=MDD, NOTES: NOT TAKING MEDICATION LIST REVIEWED AND RECONCILED WITH THE PATIENT PAST MEDICAL HISTORY DM, HTN, CHRONIC PAIN , THYROID DISEASE, GERD, MIGRANES LEFT KNEE PAIN RIGHT SHOULDER LABRIUM TEAR FUSION AT 3-4 C BACK AND NECK SPASMS ALLERGIES AZITHROMYCIN: LIP SWELLING - ALLERGY SUMATRIPTAN: FACIAL SWELLING - ALLERGY PROPOXYPHENE: PRICKLY FEELING, RASH, SOB - ALLERGY SURGICAL HISTORY FUSION C3-C4 1994 3 SURGURIES TO LEFT KNEE 1993 LEFT KNEE ARTHROSCOPY 05/2020 FAMILY HISTORY FATHER: 51 YRS, DIAGNOSED WITH DIABETES MOTHER: 50 YRS, OTHER MALIGNANT NEOPLASM OF UNSPECIFIED SITE 3 BROTHER(S) , 2 SISTER(S) . 1 SON(S) - HEALTHY. ON BROTHER R\/T PANCREATIC CANCER, ONE SISTER WITH MS \NBROTHER - COMPLICATIONS FROM AGENT ORANGE\NBROTHER - BLOOD CLOT. SOCIAL HISTORY GENERAL: TOBACCO USE ARE YOU A:NONSMOKER LATEX QUESTIONNAIRE LATEX ALLERGY : HAVE YOU EVER DEVELOPED ANY TYPE OF REACTION AFTER HANDLING LATEX PRODUCTS SUCH RUBBER GLOVES, CONDOMS, DIAPHRAGMS, BALLOONS, SOCKS, OR UNDERWEAR?NO LATEX ALLERGY : HAVE YOU EVER DEVELOPED ANY TYPE OF REACTION DURING OR AFTER DENTAL APPOINTMENT, VAGINAL/RECTAL EXAMINATION, SURGICAL PROCEDURE, OR ANY OTHER EXPOSURE?NO LATEX RISK : HAVE YOU EVER HAD ANY DIFFICULTY BREATHING OR HIVES AFTER EATING OR HANDLING ANY FRUITS, OR VEGETABLES; SUCH KIWI, BANANAS, STONE FRUITS, OR CHESTNUTSNO LATEX RISK : DO YOU HAVE A PREVIOUS PERSONAL HISTORY OF MORE THAN NINE SURGERIES, SPINA BIFIDA, OR REPEATED CATHERIZATIONS? NO LATEX RISK : ARE YOU FREQUENTLY EXPOSED TO LATEX PRODUCTS IN YOUR OCCUPATION?NO DATE ASKED : 10/25/2020 LUNG CANCER SCREENING SMOKING STATUS:NON SMOKER ALCOHOL SCREENING DID YOU HAVE A DRINK CONTAINING ALCOHOL IN THE PAST YEAR?NO POINTS0 INTERPRETATIONNEGATIVE RECREATIONAL DRUG USE DRUG USE?NO HAS PRESCRIPTION FOR MEDICAL MARIJUANA. CAFFEINE CAFFEINE USE?NO HIV / HEP-C SCREENING HIV TEST OFFERED TO PATIENT:YES DATE OFFERED:01/17/2018 TEST ACCEPTED:NO HEP-C TEST OFFERED TO PATIENT:YES DATE OFFERED:01/17/2018 REASON:PATIENT DECLINED TEST ACCEPTED:NO REASON:PATIENT DECLINED BROCHURE PROVIDED TO PATIENTNO CATHOLIC [id number] RELIGIOUS LANGUAGE LANGUAGES SPOKEN:DOMINICAN LEARNING BARRIERS / SPECIAL NEEDS CHANGE FROM LAST VISIT?NO BARRIERS TO LEARNING?NO HEARING IMPAIRED?NO VISION IMPAIRED?YES :CORRECTIVE LENSES COGNITIVELY IMPAIRED?NO READINESS TO LEARN?YES LEARNING PREFERENCES?YES :BOOKLETS, HANDOUTS LEARNING CAPABILITIES PRESENT?YES EMOTIONAL BARRIERS?NO SPECIAL DEVICES?YES :CANE, WHEELCHAIR TELEPHOTO ENGINEER NEEDED?NO DOMESTIC VIOLENCE DO YOU FEEL SAFE IN YOUR ENVIRONMENT?YES PAIN CLINIC PFS, CLERGY, PUBLIC HEALTH REFERRALS PFS REFERRAL NEEDED?NO CLERGY REFERRAL NEEDED?NO PUBLIC HEALTH REFERRAL NEEDED?NO HAS THE PATIENT BEEN EDUCATED REGARDING HIS/HER PLAN OF CARE?YES HAS THE PATIENT BEEN EDUCATED REGARDING PAIN, THE RISK FOR PAIN, THE IMPORTANCE OF EFFECTIVE PAIN MANAGEMENT, AND THE PAIN ASSESSMENT PROCESS?YES ADVANCE DIRECTIVE ADVANCE DIRECTIVE DISCUSSED WITH PATIENT:YES HCP - SHE JI () PAT DONE 4-29 DS. HOSPITALIZATION/MAJOR DIAGNOSTIC PROCEDURE SURGERIES HYPERTENSION HEAD INJURY 03/1986 FALL/ PAIN CONTROL 08/2020 VITAL SIGNS WT 322.2 LBS, HT 78 IN, BMI 37.23 INDEX, BP 125/76 MM HG, HR 106 /MIN, RR 20 /MIN, TEMP 95.4 F, OXYGEN SAT % 96%, BLOOD GLUCOSE LEVEL 84, SAFE IN ENV? (Y/N) YES, NA INITIALS SC 14:39, REVIEWED BY: JOEL RODRIGUEZ RN. EXAMINATION GENERAL EXAMINATION: THE PATIENT IS ALERT, ORIENTED TIMES THREE AND COOPERATIVE. LUNGS ARE CLEAR TO AUSCULTATION. HEART SHOWS REGULAR RHYTHM, NO MURMURS AND NO GALLOPS. ASSESSMENTS CHRONIC MIGRAINE - G43.709 (PRIMARY) TREATMENT CHRONIC MIGRAINE MEDICATION: VALIUM TAB 10MG ORALLY (DIAZEPAM)EDIN MARK 10/26/2020 3:14:56 PM > LOT# [id number] EXP: 05/2021. EDNI MARK 10/26/2020 3:15:04 PM > VERIFIED. ALICIA BOSTON 10/26/2020 3:16:35 PM > ADMINISTERED MEDICATION: OXYCODONE HCL TAB 10MG ORALLYDEEDEEEDIN 10/26/2020 3:14:18 PM > LOT # [id number] EXP: 11/2021. EDIN MARK 10/26/2020 3:14:27 PM > VERIFIED. ALICIA BOSTON 10/26/2020 3:17:07 PM > ADMINISTERED OTHERS CLINICAL NOTES: 10/25/20 1823 PRE-PROCEDURE CALL COMPLETED. DIA CANNON. PROCEDURES PAIN NURSING RECORD PROCEDURE IN ROOM 1428, PHYSICIAN IN ROOM 1600, START 1604, FINISH 1620, PHYSICIAN OUT OF ROOM 1621, OUT OF ROOM 1645, ECG N/A, PATIENT SHIELDED N/A, SAFETY STRAP N/A, PREP ALCOHOL DR LEONARDO, DRESSING N/A LOC: 10/26/2020 1600 , 1. ALERT, ORIENTED RESP: 10/26/2020 1600 , 1. REGULAR, NO DYSPNEA COLOR: 10/26/2020 1600 , 1. PINK SKIN: 10/26/2020 1600 , 1. WARM, DRY POSITION: 10/26/2020 1600, 4. OTHER- SUPINE TO SITTING VITALS: 10/26/2020 1628- 140/73-73-18-96% DISCHARGE: POST PAIN 6 HEAD, DRESSING SITE NO DRESSING, IV N/A, GAIT STEADY, TEACHING COMPLETED, PATIENT ACKNOWLEDGES UNDERSTANDING YES DISCHARGE INSTRUCTIONS REVIEWED, PATIENT VERBLAIZES UNDERSTANDING, PATIENT DISCHARGED AT 1645 PN BOTOX INJECTIONS FIRST INJECTION PRE PROCEDURE DIAGNOSIS CHRONIC MIGRAINE HEADACHES POST PROCEDURE DIAGNOSIS CHRONIC MIGRAINE HEADACHES PROCEDURE BOTOX INJECTION AT THE HEAD, NECK AND SHOULDERS SURGEON DR. JAVON LEONARDO PRESCHOOL ASSISTANT NONE ANESTHESIA NONE PRE PROCEDURE NOTE THE PATIENT HAS HISTORY OF CHRONIC MIGRAINE HEADACHES. I EVALUATED THE PATIENT AND REVIEWED THE CHART. I WENT OVER THE RISKS, ALTERNATIVES, AND BENEFITS ASSOCIATED WITH THIS PROCEDURE. THE PATIENT WOULD LIKE TO PROCEED AND GAVE CONSENT TO PERFORM THE PROCEDURE. THE PATIENT DENIES UNEXPLAINABLE WEIGHT LOSS, FEVER, CHILLS, OR NEW CHANGES IN URINARY OR BOWEL CONTROL. THE PATIENT HAS BEEN SUFFERING FROM HEADACHES FOR MORE THAN 16 DAYS OF THE MONTH. THESE HEADACHES LAST MORE THAN 4 HOURS PER DAY. THE PATIENT IS HAVING HEADACHES EVERY DAY. THE PATIENT HAS USED THE MEDICATIONS LISTED IN THE CHART TO TREAT THE HEADACHES FOR MANY MONTHS BUT THE HEADACHES PERSIST DESCRIBED ABOVE. THE PATIENT IS COVID-19 NEGATIVE DESCRIPTION OF PROCEDURE THE PATIENT WAS BROUGHT TO THE PROCEDURE ROOM AND PLACED IN THE SUPINE POSITION. I CHECKED THE AREAS WHERE THE PROCEDURE WAS GOING TO BE PERFORMED WITH THE PATIENT AND THE SUPPORTING STAFF AT THE MOMENT OF THE TIME OUT IN THE PROCEDURE ROOM. FOR THE PROCEDURE I USED A SOLUTION OF 5 UNITS OF BOTOX PER EACH 0.1 ML OF THE SOLUTION. I USED A 30-GAUGE NEEDLE TO INJECT THE SOLUTION AT THE SELECTED LOCATIONS. I INJECTED FIRST THE RIGHT AND LEFT COSTUMER ASSISTANT MUSCLES. THE LANDMARK FOR BOTH INJECTIONS WAS APPROXIMATELY 1 CM ABOVE THE SUPERIOR MEDIAL EDGE OF THE EYEBROW. AFTER THESE TWO INJECTIONS, I INJECTED THE PROCERUS MUSCLE AT THE MIDLINE POINT BETWEEN THESE FIRST TWO INJECTIONS. THEN I PROCEEDED TO INJECT THE RIGHT AND LEFT FRONTALIS MUSCLE. TWO INJECTIONS WERE DONE IN EACH SIDE. THE FIRST INJECTION WAS DONE APPROXIMATELY 2 CM ABOVE THE FIRST INJECTION OF THE COSTUMER ASSISTANT. THE SECOND INJECTION WAS DONE APPROXIMATELY 1.5 CM LATERAL TO THIS FIST INJECTION OF THE FRONTALIS OF EACH SIDE. AFTER THE INJECTIONS OVER THE FOREHEAD WERE DONE, THE PATIENT'S HEAD WAS TURNED TO THE LEFT SIDE AND WE STARTED TO WORK WITH THE RIGHT TEMPORALIS MUSCLE. FIRST INJECTION WAS DONE IN A VERTICAL LINE OF THE TRAGUS APPROXIMATELY 3 CM ABOVE THE TRAGUS. THE SECOND INJECTION WAS DONE APPROXIMATELY 2 CM ABOVE THE FIRST INJECTION. THE THIRD INJECTION WAS DONE APPROXIMATELY 1 CM FRONTWARD FROM THIS VERTICAL LINE CREATED AT THE LEVEL OF THE TRAGUS, INTERMEDIATE BETWEEN THESE TWO INJECTIONS. THE FOURTH INJECTION WAS DONE APPROXIMATELY 1.5 CM BACK FROM THE SECOND INJECTION TO THE TEMPORALIS IN LINE TO THE MIDPORTION OF THE EAR. THEN, WE PROCEEDED TO INJECT THE LEFT TEMPORALIS MUSCLE. WE CLEANED THE AREA WITH ALCOHOL AND PROCEEDED TO PERFORM THE SAME FOR INJECTIONS DESCRIBED ABOVE BUT IN THE LEFT TEMPORALIS MUSCLE USING THE SAME LANDMARKS. AFTER THESE INJECTIONS WERE DONE, THE PATIENT WAS SEATED. FIRST, WE STARTED TO INJECT THE LEFT AND RIGHT OCCIPITALIS MUSCLE. I INJECTED AT THE FOLLOWING PLACES IN THE RIGHT AND LEFT MUSCLE. THE FIRST INJECTION WAS DONE AT THE MIDPOINT POSITION BETWEEN THE MASTOID PROCESS AND THE INION OF THE OCCIPITAL PROTUBERANCE. THE SECOND INJECTION WAS DONE APPROXIMATELY 1.5 CM SUPERIOR AND LATERAL OF THIS POINT. THE THIRD INJECTION WAS DONE APPROXIMATELY 1.5 CM SUPERIOR AND MEDIAL TO THIS FIRST INJECTION. NEXT, I PROCEEDED TO INJECT THE RIGHT AND LEFT PARASPINAL MUSCLES. LANDMARK OF THE INJECTION WERE APPROXIMATELY: FIRST INJECTION 3 CM BELOW THE INION AND 1 CM LATERAL TO THE MIDLINE AND SECOND INJECTION AT EACH SIDE WAS DONE APPROXIMATELY 1.5 CM SUPERIOR AND LATERAL OF THE FIRST INJECTION. THE LAST GROUP OF INJECTIONS WAS DONE OVER THE RIGHT AND LEFT TRAPEZIUS MUSCLE OVER THE SHOULDERS AREA. THE FIRST INJECTION WAS DONE AT THE MIDPOINT BETWEEN THE INFLECTION POINT BETWEEN THE NECK AND SHOULDER AND THE ACROMION. THE SECOND AND THIRD INJECTIONS WERE DONE APPROXIMATELY 2.5 CM LATERAL AND MEDIAL FROM THIS FIRST INJECTION. SAME TARGETS WERE USED IN THE RIGHT AND LEFT SIDE. FINALLY, I INJECTED 2.5 UNITS OF BOTOX AT 4 POINTS IN THE SUPERIOR CRANIAL AREA OF THE PATIENT, WHICH HAS HELPED HIM IN THE PAST. IN TOTAL, I INJECTED 155 UNITS OF BOTOX. THE MEDICATIONS WERE VERIFIED WITH THE NURSE. PROCEDURE WAS DONE WITHOUT EVIDENCE OF PARESTHESIA OR ANY COMPLICATIONS. THE PATIENT TOLERATED THE PROCEDURE VERY WELL. ESTIMATED BLOOD LOSS WAS LESS THAN 5 ML. THE PATIENT WAS SENT TO THE RECOVERY ROOM FOR OBSERVATIONS. INJECTIONS WERE DONE AFTER CLEANING WITH ALCOHOL, USING ASEPTIC TECHNIQUES POST PROCEDURE NOTE THE PROCEDURE DONE WAS DISCUSSED WITH THE PATIENT. THE PATIENT WILL BE SEEN IN A FOLLOW UP IN THE NEXT FEW WEEKS. I AM LOOKING FOR LONG LASTING PAIN RELIEF FOR THE PATIENT WITH THIS INTERVENTION. INSTRUCTIONS WERE GIVEN, QUESTIONS WERE ANSWERED, AND THE PATIENT EXPRESSED UNDERSTANDING AND AGREES WITH THE PLAN. I, ALFREDO JIMENEZ, DOCUMENTED THE ABOVE INFORMATION ACTING A SCRIBE FOR DR. LEONARDO. I HAVE REVIEWED THE ABOVE DOCUMENT, WRITTEN BY ALFREDO JIMENEZ, GREASE RENDERER, AND I VERIFY THAT IT IS ACCURATE PN WORKMANS' COMP OPINION IN YOUR OPINION, WAS THE INCIDENT THAT THE PATIENT DESCRIBED THE COMPETENT MEDICAL CAUSE OF THIS INJURY/ILLNESS? YES ARE THE PATIENT'S COMPLAINTS CONSISTENT WITH HIS/HER HISTORY OF THE INJURY/ILLNESS? YES IS THE PATIENT'S HISTORY OF THE INJURY/ILLNESS CONSISTENT WITH YOUR OBJECTIVE FINDING? YES WHAT IS THE PERCENTAGE OF TEMPORARY IMPAIRMENT? TOTAL = 100% . IS THE PATIENT WORKING? NO . DOCTOR ON SITE: JAVON VALDEZ MD PROCEDURE CODES 08402 [facility] DISPOSITION & COMMUNICATION FOLLOW UP FOLLOW UP WITH YOUTH ASSOCIATE (REASON: POST BOTOX INJECTIONS TO HEAD, NECK AND SHOULDER AREAS) ELECTRONICALLY SIGNED BY JAVON LEONARDO MD, MD ON 10/27/2020 AT 09:25 AM EST DISCLAIMER : THIS IS A VISIT SUMMARY EXTRACTED FROM THE Spreadshirt CHART. IT IS NOT A COPY OF THE Spreadshirt PROGRESS NOTE. NAHEED
== END ==
LOC: M PAIN 14:30
PROVIDERS: ATTEND Anesthesiology
DX: G43.709 Chronic migraine without aura, not intractable, without status migrainosus (principal); E11.9 Type 2 diabetes mellitus without complications; E03.9 Hypothyroidism, unspecified; Z88.1 Allergy status to other antibiotic agents; Z88.8 Allergy status to other drugs, medicaments and biological substances; Z79.84 Long term (current) use of oral hypoglycemic drugs; Z79.891 Long term (current) use of opiate analgesic; Z79.899 Other long term (current) drug therapy
CPT/HCPCS: 64615; J0585

== ENCOUNTER → 2020-11-05 | Outpatient (CLI) | payer OTHER ==
[~2020-11-05] MED LIST changes: -BOTOX THERAPEUTIC 100 UNIT VIAL (J0585 PER 1 UNIT) IM ONE; -diazePAM 5MG TABLET As Ordered ONE; -oxyCODONE 5MG TAB As Ordered ONE
--- NOTE | 2020-11-11 01:06 | ECWPNPC ---
PATIENT NAME: ALEX JI : 1965 GENDER: MALE VISIT DATE: 11/05/2020 DISCHARGE DATE: 11/05/20 1216 VISIT LOCKED DATE TIME: PHYSICIAN: JAVON LEONARDO MD RESOURCE: JAVON LEONARDO MD REASON FOR APPOINTMENT 1. F/U PER DR. Swift HISTORY OF PRESENT ILLNESS GENERAL: 55-YEAR-OLD MALE PATIENT WITH A HISTORY OF CHRONIC LOW BACK AND BILATERAL LEG PAIN. HE HAS BEEN SUFFERING FORM THIS PAIN FOR MANY YEARS. THE PATIENT SUFFERED FROM A WORK RELATED INJURY WHILE WORKING FOR [employer] ON 04/13/1986 WHEN A 500 POUND CARPET GAVE HIM A COMPRESSION INJURY OVER HIS HEAD. THE PATIENT DESCRIBES THE PAIN CONTINUOUS AND STABBING WITH A PAIN SCORE RANGING FROM 6-10/10 IN THE BACK WITH RADIATION TO BOTH LEGS, BUT MAINLY THE RIGHT LEG. HE NOTICES THAT WHEN HE STANDS UP, THE PAIN IS INCREASED WITH SOME NUMBNESS TO BOTH FEET. HE LOOKS FOR PAIN RELIEF WHEN HE IS SITTING. WE DID AN EPIDURAL AT L4-L5 AND THE PATIENT REPORTS IMPORTANT IMPROVEMENT FOR 3 WEEKS. THE SECOND ISSUE LEFT NECK AND ARM PAIN. THE PATIENT DESCRIBES THE ACHING AND STABBING WITH LANCINATING PAIN TO THE LEFT ARM WITH A PAIN SCORE RANGING FROM 6-9/10. THE PATIENT IS HAVING DIFFICULTY MOVING HIS NECK WITH THE SPASMS AND SEVERE HEADACHES. THE PATIENT IS HAVING A ROUGH TIME WITH THE NECK PAIN. FALL RISK SCREENING: SCREENING :TWO OR MORE FALLS WITH INJURY IN THE PAST YEAR PAIN SCREENING: PATIENT HAS A COMPLAINT OF ACUTE OR CHRONIC PAIN :YES LOCATION OF PAIN:LOW BACK, LEG(S), FEET, OTHER: BILATERAL BUTTOCKS AND LEGS INTENSITY OF PAIN (SCALE OF 1 TO 10):7 WHAT DOES YOUR PAIN FEEL LIKE:ACHING, CONTINOUS, SHOOTING DURATION:CONTINOUS, CONSTANT, STEADY, ALL DAY, AWAKENS FROM SLEEP PAIN IS INCREASED BY:PROLONGED STANDING, OTHERS LAYING DOWN, TWISTING, BENDING PAIN IS DECREASED BY:USE OF PAIN MEDICATIONS, SITTING CHANGING POSITIONS NURSING NOTE: -. PAIN CENTER INTAKE QUESTIONS: DO YOU HAVE A HISTORY OF MRSA? :NO DO YOU TAKE A BLOOD THINNERS? :NO DO YOU HAVE ANY BLEEDING DISORDERS? :NO ANY NEW NUMBNESS OR WEAKNESS IN YOUR LEGS OR ARMS? :YES WORSENING WEAKNESS ANY PACEMAKER,DEFIBRILLATOR, OR DORSAL COLUMN STIMULATOR? :NO DO YOU HAVE ANY RASHES OR OPEN SORES? :NO ARE YOU ALLERGIC TO IV DYE? :NO ARE YOU DIABETIC? :YES ANY NEW PROBLEMS WITH YOUR MEDICATIONS? :NO HAVE YOU RECEIVED A VACCINE IN THE PAST 30 DAYS? :NO DO YOU PLAN TO RECEIVE A VACCINE IN THE NEXT 21 DAYS? :NO DO YOU NEED ANY PRESCRIPTION? :NO DO YOU TAKE ANY IMMUNOSUPPRESSIVE MEDICATIONS? :NO IS THERE A CHANCE YOU COULD BE ? :NO ARE YOU BREAST FEEDING? :NO CURRENT MEDICATIONS TAKING PINDOLOL 5 MG TABLET 1 TABLET ORALLY QID TAKING POTASSIUM CHLORIDE 10 MEQ (PRT) TABLET EXTENDED RELEASE 1 TABLET ORALLY TWICE DAILY TAKING METFORMIN HCL ER 750 MG TABLET EXTENDED RELEASE 24 HOUR ORALLY TWICE A DAY TAKING ATENOLOL 50 MG TABLET 1 TABLET ORALLY BID TAKING LEVOTHYROXINE SODIUM 50 MCG TABLET 1 TABLET ORALLY ONCE A DAY TAKING TRIAMTERENE-HCTZ 37.5-25 MG TABLET 1 TABLET IN THE MORNING ORALLY ONCE A DAY TAKING FLONASE ALLERGY RELIEF 50 MCG/ACT SUSPENSION 1 SPRAY IN EACH NOSTRIL NASALLY ONCE A DAY NEEDED TAKING MAY HAVE - - MEDICAL MARIJUANA DIRECTED TAKING CYCLOBENZAPRINE HCL 10 MG TABLET 1 TABLET NEEDED ORALLY Q6-8H PRN FOR SEVERE MUSCLE SPASM PAIN #45 TAB. SHOULD LAST 30 DAYS TAKING LEVEMIR 100 UNIT/ML SOLUTION 16 UNITS SUBCUTANEOUS BID TAKING KETOROLAC TROMETHAMINE 10 MG TABLET 1 TABLET WITH FOOD OR MILK NEEDED ORALLY Q6H PRN FOR SEVERE PAIN MDD4 TAKING COLACE 100 MG CAPSULE 1 CAPSULE NEEDED ORALLY ONCE A DAY TAKING BYDUREON 2 MG PEN-INJECTOR DIRECTED SUBCUTANEOUS WEEKLY TAKING PERCOCET 5-325 MG TABLET 1 ORALLY Q6H PRN MDD4, NOTES: MDD 3 TAKING BOTOX 100 UNIT SOLUTION RECONSTITUTED FOR IM INJECTION AT THE HEAD, NECK AND SHOULDER MUSCLES ICD G43.709 BOTOX APPT AT 2:30PM ON 10/25/2020. TAKING TOPAMAX 100 MG TABLET 1 TABLET ORALLY FOR PAIN TWICE A DAY TAKING AMITRIPTYLINE HCL 50 MG TABLET 3 ORALLY FOR PAIN ONCE A DAY NOT-TAKING NARCAN 4 MG/0.1ML LIQUID DIRECTED NASALLY FOR OPIOID OVERDOSE, NOTES: NEVER NOT-TAKING FENTANYL 12 MCG/HR PATCH 72 HOUR 1 PATCH TO SKIN TRANSDERMAL Q72 HR=MDD, NOTES: NOT TAKING MEDICATION LIST REVIEWED AND RECONCILED WITH THE PATIENT PAST MEDICAL HISTORY DM, HTN, CHRONIC PAIN , THYROID DISEASE, GERD, MIGRANES LEFT KNEE PAIN RIGHT SHOULDER LABRIUM TEAR FUSION AT 3-4 C BACK AND NECK SPASMS CHRONIC PAIN ALLERGIES AZITHROMYCIN: LIP SWELLING - ALLERGY SUMATRIPTAN: FACIAL SWELLING - ALLERGY PROPOXYPHENE: PRICKLY FEELING, RASH, SOB - ALLERGY SOCIAL HISTORY GENERAL: TOBACCO USE ARE YOU A:NONSMOKER LATEX QUESTIONNAIRE LATEX ALLERGY : HAVE YOU EVER DEVELOPED ANY TYPE OF REACTION AFTER HANDLING LATEX PRODUCTS SUCH RUBBER GLOVES, CONDOMS, DIAPHRAGMS, BALLOONS, SOCKS, OR UNDERWEAR?NO LATEX ALLERGY : HAVE YOU EVER DEVELOPED ANY TYPE OF REACTION DURING OR AFTER DENTAL APPOINTMENT, VAGINAL/RECTAL EXAMINATION, SURGICAL PROCEDURE, OR ANY OTHER EXPOSURE?NO LATEX RISK : HAVE YOU EVER HAD ANY DIFFICULTY BREATHING OR HIVES AFTER EATING OR HANDLING ANY FRUITS, OR VEGETABLES; SUCH KIWI, BANANAS, STONE FRUITS, OR CHESTNUTSNO LATEX RISK : DO YOU HAVE A PREVIOUS PERSONAL HISTORY OF MORE THAN NINE SURGERIES, SPINA BIFIDA, OR REPEATED CATHERIZATIONS? NO LATEX RISK : ARE YOU FREQUENTLY EXPOSED TO LATEX PRODUCTS IN YOUR OCCUPATION?NO DATE ASKED : 10/25/2020 ALCOHOL USE: NO. LUNG CANCER SCREENING SMOKING STATUS:NON SMOKER ALCOHOL SCREENING DID YOU HAVE A DRINK CONTAINING ALCOHOL IN THE PAST YEAR?NO POINTS0 INTERPRETATIONNEGATIVE RECREATIONAL DRUG USE DRUG USE?NO HAS PRESCRIPTION FOR MEDICAL MARIJUANA. CAFFEINE CAFFEINE USE?NO HIV / HEP-C SCREENING HIV TEST OFFERED TO PATIENT:YES DATE OFFERED:01/17/2018 TEST ACCEPTED:NO HEP-C TEST OFFERED TO PATIENT:YES DATE OFFERED:01/17/2018 REASON:PATIENT DECLINED TEST ACCEPTED:NO REASON:PATIENT DECLINED BROCHURE PROVIDED TO PATIENTNO ANABAPTISM [id number] LATTER DAY LANGUAGE LANGUAGES SPOKEN:SAMMARINESE LEARNING BARRIERS / SPECIAL NEEDS CHANGE FROM LAST VISIT?NO BARRIERS TO LEARNING?NO HEARING IMPAIRED?NO VISION IMPAIRED?YES :CORRECTIVE LENSES COGNITIVELY IMPAIRED?NO READINESS TO LEARN?YES LEARNING PREFERENCES?YES :BOOKLETS, HANDOUTS LEARNING CAPABILITIES PRESENT?YES EMOTIONAL BARRIERS?NO SPECIAL DEVICES?YES :CANE, WHEELCHAIR BOMB SQUAD OFFICER NEEDED?NO HOSPITALIZATION/MAJOR DIAGNOSTIC PROCEDURE SURGERIES HYPERTENSION HEAD INJURY 03/1986 FALL/ PAIN CONTROL 08/2020 REVIEW OF SYSTEMS CONSTITUTIONAL: ANY RECENT FEVER NO . CHILLS NO . WEIGHT CHANGE OF UNKNOWN REASONS NO . GASTROENTEROLOGY: NEW UNEXPLAINABLE CHANGES IN BOWEL CONTROL NO . CONSTIPATION NO . GENITOURINARY: ANY NEW CHANGE IN BLADDER CONTROL? NO . NEUROLOGY: NEW ONSET DIZZINESS OR NEUROLOGICAL CHANGES NOT MENTIONED NO . NEW NUMBNESS OR PAIN PATTERNS NOT MENTIONED AND PERTINENT TO TODAY'S VISIT NO . CARDIOLOGY: NEW CHEST PRESSURE NO . NEW CHEST PAIN NO . RESPIRATORY: UNEXPLAINABLE COUGH NO . NEW SHORTNESS OF BREATH NO . VITAL SIGNS WT 330.6 LBS, HT 78 IN, BMI 38.20 INDEX, BP 160/95 MM HG, REPEAT BP 162/100 MANUAL, HR 96 /MIN, RR 18 /MIN, TEMP 97.0 F, OXYGEN SAT % 97%, SAFE IN ENV? (Y/N) YES, NA INITIALS AW 1013, REVIEWED BY: JSJ. TIESHA RNDISCUSSED ELEVATED BP WITH PATIENT. PATIENT IS ASYMPTOMATIC. HE DOES TAKE MEDICATIONS FOR BP. STATES HE IS IN A LOT OF PAIN TODAY. DR. LEONARDO NOTIFIED. Yong MOTLEY RN. EXAMINATION GENERAL EXAMINATION: THE PATIENT IS ALERT, ORIENTED TIMES THREE AND COOPERATIVE. LUNGS ARE CLEAR TO AUSCULTATION. HEART SHOWS REGULAR RHYTHM, NO MURMURS AND NO GALLOPS. THE PATIENT IS USING A CANE TO AMBULATED WITH AN ANTALGIC GAIT. HE SEEMS TO BE LIMPING MORE FROM HIS RIGHT LEG WITH SOME SPASTICITY. THE PATIENT HAS AN UNSTEADY GAIT. THE LEGS ARE WEAK WITH SOME SPASTICITY. STRAIGHT LEG RAISE IS POSITIVE FOR RADICULOPATHY ON THE RIGHT AT 20 DEGREES. LUMBOSACRAL SPINE DATED 05/18/2020 SHOWS SOME FACET ARTHROPATHY CHANGES, BULGING DISC AT L3-L4 AND L4-L5 WITH SEVERE RIGHT FORAMINAL STENOSIS AT L3-L4 AND L4-L5. THE PATIENT CAN ABDUCT THE UPPER EXTREMITIES TO THE SHOULDER LEFT. THE RIGHT ARM IS WEAKER WE THAN THE LEFT ARM ON FLEXION AND EXTENSION. HAND RECREATION TECHNICIAN ON THE LEFT IS REDUCED COMPARED TO THE RIGHT. THE PATIENT HAS DIFFICULTY EXTENDING HIS NECK. EXTENDING THE NECK THE PATIENT DEVELOPED SPASMS DOWN THE BODY. 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 JI. I AM GOING TO REQUEST AUTHORIZATION FOR A RIGHT TRANSFORAMINAL EPIDURAL STEROID INJECTION L3-L4, L4-L5 IT IS MORE SPECIFIC AND GOES BETWEEN THE ROOT OF THE NERVE AND THE DISC. THE PATIENT WOULD LIKE TO MOVE FORWARD WITH IV SEDATION DUE TO ANXIETY AND DISCOMFORT ASSOCIATED WITH THE PROCEDURE. I AM GOING TO TALK TO THE RADIOLOGIST ABOUT THE LUMBAR MRI. THE LAST STUDY OF THE NECK WAS MORE THAN 5 YEARS AGO. THE PATIENT IS HAVING TERRIBLE PROBLEMS WITH THE NECK. THE PATIENT HAS A HISTORY OF A NECK SURGERY. I WOULD LIKE TO ORDER AN NECK MRI UNDER ANESTHESIA WITH AND WITHOUT CONTRAST. THE PATIENT REPORTS UNDERSTANDING AND AGREES WITH THE PLAN. I, ALFREDO JIMENEZ, DOCUMENTED THE ABOVE INFORMATION ACTING A SCRIBE FOR DR. LEONARDO. I HAVE REVIEWED THE ABOVE DOCUMENT, WRITTEN BY ALFREDO JIEMNEZ, BRIDGE/STRUCTURE INSPECTION TEAM LEADER, AND I VERIFY THAT IT IS ACCURATE. CERVICAL POST-LAMINECTOMY SYNDROME [facility] MRI SPINE, CERVICAL WITH [id number] [facility] MRI SPINE, CERVICAL WITHOUT [id number] OTHERS NOTES: TRANSFORAMINAL PROCEDURE INFORMATION AND PRE PROCEDURE INSTRUCTIONS GIVEN TO PATIENT 11/05/2020 Priti FARIA RN . PROCEDURES PN WORKMANS' COMP OPINION IN YOUR OPINION, WAS THE INCIDENT THAT THE PATIENT DESCRIBED THE COMPETENT MEDICAL CAUSE OF THIS INJURY/ILLNESS? YES ARE THE PATIENT'S COMPLAINTS CONSISTENT WITH HIS/HER HISTORY OF THE INJURY/ILLNESS? YES IS THE PATIENT'S HISTORY OF THE INJURY/ILLNESS CONSISTENT WITH YOUR OBJECTIVE FINDING? YES WHAT IS THE PERCENTAGE OF TEMPORARY IMPAIRMENT? TOTAL = 100% . IS THE PATIENT WORKING? NO . DOCTOR ON SITE: JAVON VALDEZ MD PROCEDURE CODES 47669 OFFICE/OUTPATIENT VISIT EST [id number] ESTABILISHED PATIENT [facility] FACILITY CHARGE DISPOSITION & COMMUNICATION FOLLOW UP REQUEST AUTH FOR RIGHT TRANSFORAMINAL EPIDURAL STEROID INJECTION L3-L4, L4-L5 WITH IV SEDATION (REASON: REQUEST AUTH FOR CERVICAL MRI WITH AND WITHOUT CONTRAST UNDER ANESTHESIA ) ELECTRONICALLY SIGNED BY JAVON LEONARDO MD, MD ON 11/10/2020 AT 01:15 PM EST DISCLAIMER : THIS IS A VISIT SUMMARY EXTRACTED FROM THE [employer] 2000 CHART. IT IS NOT A COPY OF THE [employer] 2000 PROGRESS NOTE. CHRISTOPHERD
== END ==
LOC: M PAIN 10:00
PROVIDERS: ATTEND Anesthesiology
DX: M47.816 Spondylosis without myelopathy or radiculopathy, lumbar region (principal); M48.061 Spinal stenosis, lumbar region without neurogenic claudication; M96.1 Postlaminectomy syndrome, not elsewhere classified; E11.9 Type 2 diabetes mellitus without complications; G89.29 Other chronic pain; I10 Essential (primary) hypertension; K21.9 Gastro-esophageal reflux disease without esophagitis; G43.909 Migraine, unspecified, not intractable, without status migrainosus; Z79.4 Long term (current) use of insulin; Z79.899 Other long term (current) drug therapy; Z88.1 Allergy status to other antibiotic agents; Z88.8 Allergy status to other drugs, medicaments and biological substances

== ENCOUNTER → 2020-11-09 | Outpatient (CLI) | payer OTHER ==
--- NOTE | 2020-11-11 03:46 | ECWPNPC ---
PATIENT NAME: ALEX JI : 1965 GENDER: MALE VISIT DATE: 11/09/2020 DISCHARGE DATE: 11/09/20 1136 VISIT LOCKED DATE TIME: PHYSICIAN: BLANE EUGENE RESOURCE: BLANE EUGENE REASON FOR APPOINTMENT 1. POST BOTOX HISTORY OF PRESENT ILLNESS GENERAL: HERE FOR POST BOTOX VISIT AND MEDICATION MANAGEMENT FOR CHRONIC PAIN. REPORTING NO MIGRAINE HEADACHES SINCE BOTOX INJECTIONS. HE SUFFERS FROM DAILY HEAD PAIN . WE FOLLOW PATIENT FOR CHRONIC PAIN ASSOCIATED WITH WORK RELATED INJURY. CURRENTLY BEING FOLLOWED BY DR. LEONARDO IN PURSUIT OF IV SEDATION MRI OF THE CERVICAL AND LUMBAR SPINE. THEY ARE ALSO LOOKING AT REQUESTING TRANSFORAMINAL EPIDURAL STEROID INJECTION IN THE LUMBAR REGION. DISCUSSED MEDICATION MANAGEMENT. WE ARE IN THE PROCESS OF REDUCING PERCOCET 5/325 . HE IS TOLERATING THIS WELL. CURRENTLY USING MEDICAL MARIJUANA AT NIGHT. -. FALL RISK SCREENING: SCREENING :TWO OR MORE FALLS WITH INJURY IN THE PAST YEAR PATIENT SOUGHT MEDICAL TREATMENT. PAIN SCREENING: PATIENT HAS A COMPLAINT OF ACUTE OR CHRONIC PAIN :YES LOCATION OF PAIN:HEAD, NECK, BOTH SHOULDERS INTENSITY OF PAIN (SCALE OF 1 TO 10):6 WHAT DOES YOUR PAIN FEEL LIKE:ACHING, STABBING, SHOOTING DURATION:CONTINOUS, AWAKENS FROM SLEEP PAIN IS INCREASED BY:ACTIVITIES PAIN IS DECREASED BY:USE OF PAIN MEDICATIONS, OTHERS ICE, DRY SAUNA, OXYCODONE TREATMENT/MEDICATIONS USED TO MANAGE PAIN:OPIOIDS NURSING NOTE: -. PAIN CENTER INTAKE QUESTIONS: DO YOU HAVE A HISTORY OF MRSA? :NO DO YOU TAKE A BLOOD THINNERS? :NO DO YOU HAVE ANY BLEEDING DISORDERS? :NO ANY NEW NUMBNESS OR WEAKNESS IN YOUR LEGS OR ARMS? :NO ANY PACEMAKER,DEFIBRILLATOR, OR DORSAL COLUMN STIMULATOR? :NO DO YOU HAVE ANY RASHES OR OPEN SORES? :NO ARE YOU ALLERGIC TO IV DYE? :NO ARE YOU DIABETIC? :YES ANY NEW PROBLEMS WITH YOUR MEDICATIONS? :NO HAVE YOU RECEIVED A VACCINE IN THE PAST 30 DAYS? :NO DO YOU PLAN TO RECEIVE A VACCINE IN THE NEXT 21 DAYS? :NO DO YOU NEED ANY PRESCRIPTION? :NO DO YOU TAKE ANY IMMUNOSUPPRESSIVE MEDICATIONS? :NO IS THERE A CHANCE YOU COULD BE ? :NO ARE YOU BREAST FEEDING? :NO CURRENT MEDICATIONS TAKING PINDOLOL 5 MG TABLET 1 TABLET ORALLY QID TAKING POTASSIUM CHLORIDE 10 MEQ (PRT) TABLET EXTENDED RELEASE 1 TABLET ORALLY TWICE DAILY TAKING METFORMIN HCL ER 750 MG TABLET EXTENDED RELEASE 24 HOUR ORALLY TWICE A DAY TAKING ATENOLOL 50 MG TABLET 1 TABLET ORALLY BID TAKING LEVOTHYROXINE SODIUM 50 MCG TABLET 1 TABLET ORALLY ONCE A DAY TAKING TRIAMTERENE-HCTZ 37.5-25 MG TABLET 1 TABLET IN THE MORNING ORALLY ONCE A DAY TAKING FLONASE ALLERGY RELIEF 50 MCG/ACT SUSPENSION 1 SPRAY IN EACH NOSTRIL NASALLY ONCE A DAY NEEDED TAKING MAY HAVE - - MEDICAL MARIJUANA DIRECTED TAKING CYCLOBENZAPRINE HCL 10 MG TABLET 1 TABLET NEEDED ORALLY Q6-8H PRN FOR SEVERE MUSCLE SPASM PAIN #45 TAB. SHOULD LAST 30 DAYS TAKING LEVEMIR 100 UNIT/ML SOLUTION 16 UNITS SUBCUTANEOUS BID TAKING KETOROLAC TROMETHAMINE 10 MG TABLET 1 TABLET WITH FOOD OR MILK NEEDED ORALLY Q6H PRN FOR SEVERE PAIN MDD4 TAKING COLACE 100 MG CAPSULE 1 CAPSULE NEEDED ORALLY ONCE A DAY TAKING BYDUREON 2 MG PEN-INJECTOR DIRECTED SUBCUTANEOUS WEEKLY TAKING PERCOCET 5-325 MG TABLET 1 ORALLY THREE TIMES DAILY NEEDED, NOTES: MDD 3 TAKING BOTOX 100 UNIT SOLUTION RECONSTITUTED FOR IM INJECTION AT THE HEAD, NECK AND SHOULDER MUSCLES ICD G43.709 BOTOX APPT AT 2:30PM ON 10/25/2020. TAKING TOPAMAX 100 MG TABLET 1 TABLET ORALLY FOR PAIN TWICE A DAY TAKING AMITRIPTYLINE HCL 50 MG TABLET 3 ORALLY FOR PAIN ONCE A DAY UNKNOWN NARCAN 4 MG/0.1ML LIQUID DIRECTED NASALLY FOR OPIOID OVERDOSE, NOTES: NEVER UNKNOWN FENTANYL 12 MCG/HR PATCH 72 HOUR 1 PATCH TO SKIN TRANSDERMAL Q72 HR=MDD, NOTES: NOT TAKING MEDICATION LIST REVIEWED AND RECONCILED WITH THE PATIENT PAST MEDICAL HISTORY DM, HTN, CHRONIC PAIN , THYROID DISEASE, GERD, MIGRANES LEFT KNEE PAIN RIGHT SHOULDER LABRIUM TEAR FUSION AT 3-4 C BACK AND NECK SPASMS CHRONIC PAIN ALLERGIES AZITHROMYCIN: LIP SWELLING - ALLERGY SUMATRIPTAN: FACIAL SWELLING - ALLERGY PROPOXYPHENE: PRICKLY FEELING, RASH, SOB - ALLERGY REVIEW OF SYSTEMS CONSTITUTIONAL: ANY RECENT FEVER NO . CHILLS NO . WEIGHT CHANGE OF UNKNOWN REASONS NO . GASTROENTEROLOGY: NEW UNEXPLAINABLE CHANGES IN BOWEL CONTROL NO . CONSTIPATION NO . GENITOURINARY: ANY NEW CHANGE IN BLADDER CONTROL? NO . NEUROLOGY: NEW ONSET DIZZINESS OR NEUROLOGICAL CHANGES NOT MENTIONED NO . NEW NUMBNESS OR PAIN PATTERNS NOT MENTIONED AND PERTINENT TO TODAY'S VISIT NO . CARDIOLOGY: NEW CHEST PRESSURE NO . NEW CHEST PAIN NO . RESPIRATORY: UNEXPLAINABLE COUGH NO . NEW SHORTNESS OF BREATH NO . VITAL SIGNS WT 335.8 LBS, HT 78 IN, BMI 38.80 INDEX, BP 180/106 MM HG, REPEAT BP 138/98 MANUAL, HR 92 /MIN, RR 18 /MIN, TEMP 97.2 F, OXYGEN SAT % 96%, SAFE IN ENV? (Y/N) YES, REVIEWED BY: JOHN DAMON MA. EXAMINATION GENERAL EXAMINATION: GENERAL AWAKE,ALERT ,PLEASANT . WALKS WITH ASSISTANCE OF CANE WITH SLOW ANTALGIC GAIT. PSYCH AFFECT NORMAL . LUNGS: LUNG OWENS ARE CLEAR TO AUSCULTATION BILATERALLY. GOOD MOVEMENT OF AIR . HEART: S1, S2 IN A REGULAR RATE AND RHYTHM. NO SIGNIFICANT MURMURS, RUBS OR GALLOPS NOTED . ASSESSMENTS OTHER CHRONIC PAIN - G89.29 (PRIMARY) INTERVERTEBRAL DISC DISORDERS WITH RADICULOPATHY, LUMBOSACRAL REGION - M51.17 CHRONIC MIGRAINE - G43.709 CHRONIC PRESCRIPTION OPIATE USE - Z79.891 TREATMENT OTHER CHRONIC PAIN REFILL PERCOCET TABLET, 5-325 MG, 1, ORALLY, Q8H PRN MDD3, 30 DAYS, 90, REFILLS 0, NOTES: MDD 3 PAIN PROCEDURE LOGDATE OF PROCEDURE1PROCEDURE:BOTOX INJECTIONS TO HEAD, NECK, AND SHOULDER AREASAMOUNT OF PRE SEDATEVALIUM 10 MG & OXYCODONE 10 MGRESULT:REPORTS NO MIGRAINE HEADACHES SINCE BOTOX NOTES: REQUEST BOTOX INJECTIONS HEAD,NECK ,SHOULDERS FOR MIGRAINE HEADACHE PREVENTION EVERY 3 MONTHS PER CLINICAL GUIDELINES CONTINUE TO REDUCE PERCOCET TO MAXIMUM OF 3 TABLETS DAILY. , ISTOP REGISTRY REVIEWED AND DEMONSTRATES COMPLLIANCE. RECENT URINE TOXICOLOGY REVIEWED. NO UNAUTHORIZED MEDICATIONS. NO ILLICIT SUBSTANCES AND PRESCRIBED MEDICATIONS WERE PRESENT. BRING IN MEDICATION TO ALL FOLLOW UP SHONDAS Marvin ARGUELLES. PROCEDURES PN WORKMANS' COMP OPINION IN YOUR OPINION, WAS THE INCIDENT THAT THE PATIENT DESCRIBED THE COMPETENT MEDICAL CAUSE OF THIS INJURY/ILLNESS? YES ARE THE PATIENT'S COMPLAINTS CONSISTENT WITH HIS/HER HISTORY OF THE INJURY/ILLNESS? YES IS THE PATIENT'S HISTORY OF THE INJURY/ILLNESS CONSISTENT WITH YOUR OBJECTIVE FINDING? YES WHAT IS THE PERCENTAGE OF TEMPORARY IMPAIRMENT? TOTAL = 100% IS THE PATIENT WORKING? NO DOCTOR ON SITE: JAVON VALDEZ MD PROCEDURE CODES FA211 ESTABILISHED PATIENT [facility] FACILITY CHARGE DISPOSITION & COMMUNICATION FOLLOW UP 3 MONTHS MEDICATION MANAGEMENT/URINE TOXICOLOGY (REASON: REQUEST BOTOX INJECTIONS FOR HEAD,NECK,SHOULDERS /MIGRAINE HEADACHE PREVENTION EVERY 3 MONTHS PER CLINICAL GUIDELINES) ELECTRONICALLY SIGNED BY MEKA BAPTISTE ON 11/10/2020 AT 12:46 PM EST DISCLAIMER : THIS IS A VISIT SUMMARY EXTRACTED FROM THE [employer] CHART. IT IS NOT A COPY OF THE [employer] PROGRESS NOTE. NAHEED
== END ==
LOC: M PAIN 10:45
PROVIDERS: ATTEND Nurse Practitioner Family
DX: G89.29 Other chronic pain (principal); M51.17 Intervertebral disc disorders with radiculopathy, lumbosacral region; G43.709 Chronic migraine without aura, not intractable, without status migrainosus; Z79.891 Long term (current) use of opiate analgesic; E11.9 Type 2 diabetes mellitus without complications; I10 Essential (primary) hypertension; K21.9 Gastro-esophageal reflux disease without esophagitis; Z79.4 Long term (current) use of insulin; Z79.899 Other long term (current) drug therapy; Z88.1 Allergy status to other antibiotic agents; Z88.8 Allergy status to other drugs, medicaments and biological substances

== ENCOUNTER → 2020-12-10 | Outpatient (CLI) | payer OTHER ==
--- NOTE | 2020-12-14 00:20 | ECWPNPC ---
PATIENT NAME: ALEX JI : 1965 GENDER: MALE VISIT DATE: 12/10/2020 DISCHARGE DATE: 12/10/20 1200 VISIT LOCKED DATE TIME: PHYSICIAN: JAVON LEONARDO MD RESOURCE: JAVON LEONARDO MD REASON FOR APPOINTMENT 1. PRESEDATE FOR RIGHT TRANSFORAMINAL EPIDURAL STEROID INJECTION L3-L4, L4-L5 HISTORY OF PRESENT ILLNESS GENERAL: 55-YEAR-OLD MALE PATIENT WITH A HISTORY OF CHRONIC LOW BACK AND LEG PAIN. THE PATIENT DESCRIBES THE PAIN ACHING, THROBBING AND SHOOTING WITH A PAIN SCORE RANGING FROM 6-9/10 IN THE BACK RADIATING DOWN BOTH LEGS BUT MAINLY THE RIGHT LEG. THIS IS AFFECTING HIS ABILITY TO CLEAN HIS HOUSE, MOVE AROUND, GROCERY SHOP AND BASIC ACTIVITIES. THE PATIENT NEEDS HELP. FALL RISK SCREENING: SCREENING :ONE FALL WITH INJURY IN THE PAST YEAR PAIN SCREENING: PATIENT HAS A COMPLAINT OF ACUTE OR CHRONIC PAIN :YES LOCATION OF PAIN:HEAD, NECK, BOTH SHOULDERS, LOW BACK, LEG(S) INTENSITY OF PAIN (SCALE OF 1 TO 10):7 WHAT DOES YOUR PAIN FEEL LIKE:ACHING, THROBBING, SHOOTING DURATION:CONTINOUS, CONSTANT PAIN IS INCREASED BY:ACTIVITIES PAIN IS DECREASED BY:USE OF PAIN MEDICATIONS NURSING NOTE: -. PAIN CENTER INTAKE QUESTIONS: DO YOU HAVE A HISTORY OF MRSA? :NO DO YOU TAKE A BLOOD THINNERS? :NO DO YOU HAVE ANY BLEEDING DISORDERS? :NO ANY NEW NUMBNESS OR WEAKNESS IN YOUR LEGS OR ARMS? :YES RIGHT FOOT DETENTION NUMBNESS ANY PACEMAKER,DEFIBRILLATOR, OR DORSAL COLUMN STIMULATOR? :NO DO YOU HAVE ANY RASHES OR OPEN SORES? :NO ARE YOU ALLERGIC TO IV DYE? :NO ARE YOU DIABETIC? :YES ANY NEW PROBLEMS WITH YOUR MEDICATIONS? :YES PT WEANING DOWN ON OXY W BLANE HAVE YOU RECEIVED A VACCINE IN THE PAST 30 DAYS? :NO DO YOU PLAN TO RECEIVE A VACCINE IN THE NEXT 21 DAYS? :NO DO YOU NEED ANY PRESCRIPTION? :NO DO YOU TAKE ANY IMMUNOSUPPRESSIVE MEDICATIONS? :NO IS THERE A CHANCE YOU COULD BE ? :NO ARE YOU BREAST FEEDING? :NO CURRENT MEDICATIONS TAKING PINDOLOL 5 MG TABLET 1 TABLET ORALLY QID TAKING POTASSIUM CHLORIDE 10 MEQ (PRT) TABLET EXTENDED RELEASE 1 TABLET ORALLY TWICE DAILY TAKING METFORMIN HCL ER 750 MG TABLET EXTENDED RELEASE 24 HOUR ORALLY TWICE A DAY TAKING ATENOLOL 50 MG TABLET 1 TABLET ORALLY BID TAKING LEVOTHYROXINE SODIUM 50 MCG TABLET 1 TABLET ORALLY ONCE A DAY TAKING TRIAMTERENE-HCTZ 37.5-25 MG TABLET 1 TABLET IN THE MORNING ORALLY ONCE A DAY TAKING FLONASE ALLERGY RELIEF 50 MCG/ACT SUSPENSION 1 SPRAY IN EACH NOSTRIL NASALLY ONCE A DAY NEEDED TAKING MAY HAVE - - MEDICAL MARIJUANA DIRECTED TAKING CYCLOBENZAPRINE HCL 10 MG TABLET 1 TABLET NEEDED ORALLY Q6-8H PRN FOR SEVERE MUSCLE SPASM PAIN #45 TAB. SHOULD LAST 30 DAYS TAKING LEVEMIR 100 UNIT/ML SOLUTION 16 UNITS SUBCUTANEOUS BID TAKING KETOROLAC TROMETHAMINE 10 MG TABLET 1 TABLET WITH FOOD OR MILK NEEDED ORALLY Q6H PRN FOR SEVERE PAIN MDD4 TAKING COLACE 100 MG CAPSULE 1 CAPSULE NEEDED ORALLY ONCE A DAY TAKING BYDUREON 2 MG PEN-INJECTOR DIRECTED SUBCUTANEOUS WEEKLY TAKING BOTOX 100 UNIT SOLUTION RECONSTITUTED FOR IM INJECTION AT THE HEAD, NECK AND SHOULDER MUSCLES ICD G43.709 BOTOX APPT AT 2:30PM ON 10/25/2020. TAKING TOPAMAX 100 MG TABLET 1 TABLET ORALLY FOR PAIN TWICE A DAY TAKING AMITRIPTYLINE HCL 50 MG TABLET 3 ORALLY FOR PAIN ONCE A DAY TAKING PERCOCET 5-325 MG TABLET 1 ORALLY Q8H PRN MDD3, NOTES: MDD 3 NOT-TAKING NARCAN 4 MG/0.1ML LIQUID DIRECTED NASALLY FOR OPIOID OVERDOSE, NOTES: NEVER NOT-TAKING FENTANYL 12 MCG/HR PATCH 72 HOUR 1 PATCH TO SKIN TRANSDERMAL Q72 HR=MDD, NOTES: NOT TAKING MEDICATION LIST REVIEWED AND RECONCILED WITH THE PATIENT PAST MEDICAL HISTORY DM, HTN, CHRONIC PAIN , THYROID DISEASE, GERD, MIGRANES LEFT KNEE PAIN RIGHT SHOULDER LABRIUM TEAR FUSION AT 3-4 C BACK AND NECK SPASMS CHRONIC PAIN ALLERGIES AZITHROMYCIN: LIP SWELLING - ALLERGY SUMATRIPTAN: FACIAL SWELLING - ALLERGY PROPOXYPHENE: PRICKLY FEELING, RASH, SOB - ALLERGY SOCIAL HISTORY GENERAL: TOBACCO USE ARE YOU A:NONSMOKER LATEX QUESTIONNAIRE LATEX ALLERGY : HAVE YOU EVER DEVELOPED ANY TYPE OF REACTION AFTER HANDLING LATEX PRODUCTS SUCH RUBBER GLOVES, CONDOMS, DIAPHRAGMS, BALLOONS, SOCKS, OR UNDERWEAR?NO LATEX ALLERGY : HAVE YOU EVER DEVELOPED ANY TYPE OF REACTION DURING OR AFTER DENTAL APPOINTMENT, VAGINAL/RECTAL EXAMINATION, SURGICAL PROCEDURE, OR ANY OTHER EXPOSURE?NO DATE ASKED : 10/25/2020 LATEX RISK : HAVE YOU EVER HAD ANY DIFFICULTY BREATHING OR HIVES AFTER EATING OR HANDLING ANY FRUITS, OR VEGETABLES; SUCH KIWI, BANANAS, STONE FRUITS, OR CHESTNUTSNO LATEX RISK : DO YOU HAVE A PREVIOUS PERSONAL HISTORY OF MORE THAN NINE SURGERIES, SPINA BIFIDA, OR REPEATED CATHERIZATIONS? NO LATEX RISK : ARE YOU FREQUENTLY EXPOSED TO LATEX PRODUCTS IN YOUR OCCUPATION?NO ALCOHOL USE: NO. LUNG CANCER SCREENING SMOKING STATUS:NON SMOKER ALCOHOL SCREENING DID YOU HAVE A DRINK CONTAINING ALCOHOL IN THE PAST YEAR?NO POINTS0 INTERPRETATIONNEGATIVE RECREATIONAL DRUG USE DRUG USE?NO HAS PRESCRIPTION FOR MEDICAL MARIJUANA. CAFFEINE CAFFEINE USE?NO HIV / HEP-C SCREENING HIV TEST OFFERED TO PATIENT:YES DATE OFFERED:01/17/2018 TEST ACCEPTED:NO HEP-C TEST OFFERED TO PATIENT:YES DATE OFFERED:01/17/2018 REASON:PATIENT DECLINED TEST ACCEPTED:NO REASON:PATIENT DECLINED BROCHURE PROVIDED TO PATIENTNO CONFUCIANIST [id number] LANGUAGE LANGUAGES SPOKEN:[place] CITIZEN LEARNING BARRIERS / SPECIAL NEEDS CHANGE FROM LAST VISIT?NO BARRIERS TO LEARNING?NO HEARING IMPAIRED?NO VISION IMPAIRED?YES COGNITIVELY IMPAIRED?NO :CORRECTIVE LENSES READINESS TO LEARN?YES LEARNING PREFERENCES?YES :BOOKLETS, HANDOUTS LEARNING CAPABILITIES PRESENT?YES EMOTIONAL BARRIERS?NO SPECIAL DEVICES?YES :CANE, WHEELCHAIR 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 VITAL SIGNS WT 344.2 LBS, HT 78 IN, BMI 39.77 INDEX, BP 178/96 MM HG, HR 90 /MIN, RR 20 /MIN, TEMP 97.4 F, OXYGEN SAT % 96%, SAFE IN ENV? (Y/N) Y, NA INITIALS SC 10:36, REVIEWED BY: EM. EXAMINATION GENERAL EXAMINATION: THE PATIENT IS ALERT, ORIENTED TIMES THREE AND COOPERATIVE. LUNGS ARE CLEAR TO AUSCULTATION. HEART SHOWS REGULAR RHYTHM, NO MURMURS AND NO GALLOPS. THE PATIENT WALKS WITH THE ASSISTANCE OF A CANE THAT HE HOLDS IN HIS RIGHT HAND. THE PATIENT HAS DIFFICULTY STANDING. HE HAS AN ANTALGIC GAIT. THE PATIENT ALSO HAS DIFFICULTY SITTING. THE RIGHT LEG SEEMS TO BE WEAKER THAN THE LEFT LEG ON FLEXION AND EXTENSION. STRAIGHT LEG RAISE IS POSITIVE FOR RADICULOPATHY ON THE RIGHT AT 30 DEGREES. 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 ASSESSMENTS INTERVERTEBRAL DISC DISORDERS WITH RADICULOPATHY, LUMBAR REGION - M51.16 (PRIMARY) TREATMENT INTERVERTEBRAL DISC DISORDERS WITH RADICULOPATHY, LUMBAR REGION MED: VERSED 1MG IV MIDAZOLAM (ORDERED FOR 12/13/2020)EDIN MARK 12/13/2020 12:51:16 PM > VERIFIED ALFREDO JIMENEZ 12/13/2020 01:35:48 PM - SECOND DOSE ORDERED, VERIFIED WITH ALFREDO KINNEY 12/13/2020 01:38:27 PM - THIRD DOSE ORDERED, VERIFIED WITH ALICIA DUMAS 12/13/2020 2:13:50 PM > 1 ST DOSE AT 1334, 2 ND DOSE AT 1336, 3 RD DOSE AT 1338 FOR A TOTAL DOSE MEDICATION: FENTANYL CITRATE 50MCG IV (ORDERED FOR 12/13/2020)EDIN MARK 12/13/2020 12:51:34 PM > VERIFIED. ALFREDO JIMENEZ 12/13/2020 01:37:11 PM - SECOND DOSE ORDERED, VERIFIED WITH ALFREDO KINNEY 12/13/2020 01:39:09 PM - THIRD DOSE ORDERED, VERIFIED WITH ALICIA DUMAS 12/13/2020 2:14:42 PM > 1 ST DOSE AT 1335, 2 ND DOSE AT 1337, 3 RD DOSE AT 1339 FOR A TOTAL DOSE OF 150 MCG OXYGEN AT 2 LITERS PER NASAL CANNULA (ORDERED FOR 12/13/2020)EDIN MARK 12/13/2020 2:34:39 PM > OXYGEN ON: 1305 OFF: 1352 IV LACTATED RINGER'S AT KVO (ORDERED FOR 12/13/2020)ALICIA BOSTON 12/13/2020 12:55:54 PM > #20 IV STARTED X 1 ATTEMPT BY THIS DOCK MANAGER IN LEFT HAND. SITE ASYMPTOMATIC, PATIENT TOLERATED WELL. LR INFUSING AT KVO WITHOUT DIFFICULTY. EDIN MARK 12/13/2020 2:35:13 PM > PATIENT RECEIVED AT TOTAL OF 300CCS OF LR. CLINICAL NOTES: I DISCUSSED ALTERNATIVES WITH MR. JI. WE AGREE ON DOING A TRANSFORAMINAL EPIDURAL STEROID INJECTION L3-L4, L4-L5 WITH IV SEDATION DUE TO ANXIETY AND DISCOMFORT ASSOCIATED WITH THE PROCEDURE. THE PATIENT REPORTS UNDERSTANDING AND AGREES WITH THE PLAN. I, ALFREDO JIMENEZ, DOCUMENTED THE ABOVE INFORMATION ACTING A SCRIBE FOR DR. LEONARDO. I HAVE REVIEWED THE ABOVE DOCUMENT, WRITTEN BY ALFREDO JIMENEZ, COMMISSION SPECIALIST, AND I VERIFY THAT IT IS ACCURATE. PROCEDURES PN WORKMANS' COMP OPINION IN YOUR OPINION, WAS THE INCIDENT THAT THE PATIENT DESCRIBED THE COMPETENT MEDICAL CAUSE OF THIS INJURY/ILLNESS? YES ARE THE PATIENT'S COMPLAINTS CONSISTENT WITH HIS/HER HISTORY OF THE INJURY/ILLNESS? YES IS THE PATIENT'S HISTORY OF THE INJURY/ILLNESS CONSISTENT WITH YOUR OBJECTIVE FINDING? YES WHAT IS THE PERCENTAGE OF TEMPORARY IMPAIRMENT? TOTAL = 100% . IS THE PATIENT WORKING? NO . DOCTOR ON SITE: JAVON VALDEZ MD PROCEDURE CODES FA211 ESTABILISHED PATIENT [facility] FACILITY CHARGE 51419 OFFICE/OUTPATIENT VISIT EST DISPOSITION & COMMUNICATION FOLLOW UP OKAY TO BOOK (REASON: RIGHT TRANSFORAMINAL EPIDURAL STEROID INJECTION L3-L4, L4-L5) ELECTRONICALLY SIGNED BY JAVON LEONARDO MD, MD ON 12/13/2020 AT 04:30 PM EST DISCLAIMER : THIS IS A VISIT SUMMARY EXTRACTED FROM THE [employer] CHART. IT IS NOT A COPY OF THE [employer] PROGRESS NOTE. NAHEED
== END ==
LOC: M PAIN 10:30
PROVIDERS: ATTEND Anesthesiology
DX: M51.16 Intervertebral disc disorders with radiculopathy, lumbar region (principal); E11.9 Type 2 diabetes mellitus without complications; I10 Essential (primary) hypertension; G89.29 Other chronic pain; K21.9 Gastro-esophageal reflux disease without esophagitis; G43.909 Migraine, unspecified, not intractable, without status migrainosus; E07.9 Disorder of thyroid, unspecified; Z79.84 Long term (current) use of oral hypoglycemic drugs; Z79.891 Long term (current) use of opiate analgesic; Z79.899 Other long term (current) drug therapy; Z88.1 Allergy status to other antibiotic agents; Z88.8 Allergy status to other drugs, medicaments and biological substances

== ENCOUNTER → 2020-12-10 | Outpatient (CLI) | payer OTHER | LOC: M LABSMTC 12:13 | PROVIDERS: ATTEND Anesthesiology | DX: Z11.52 Encounter for screening for COVID-19 (principal) ==

== ENCOUNTER → 2020-12-13 | Outpatient (CLI) | payer OTHER ==
[~2020-12-13] MED LIST changes: +BUPIVACAINE HCL 0.25% 30ML VIAL As Ordered ONE; +ISOVUE-M 300 61% 15ML VIAL As Ordered ONE; +LIDOCAINE 1% SDV 30ML VIAL As Ordered ONE; +MIDAZOLAM INJ 2MG/2ML VIAL (J2250 PER 1MG) As Ordered ONE; +dexameTHASONE 10MG/1ML VIAL PRES.FREE (J1100 PER 1MG) As Ordered ONE; +fentaNYL 100 MCG/2 ML INJECTION (J3010) As Ordered ONE
--- NOTE | 2020-12-13 16:47 | REP ---
INDICATION: RIGHT TRANSFORAMINAL EPIDURAL STEROID INJECTION L3-L4, L4-L5. COMPARISON: None. TECHNIQUE: Multiple C-arm views lower lumbar spine. FINDINGS: Two needles are seen along the lower lumbar spine. A small amount of contrast is injected. IMPRESSION: 36 seconds fluoroscopy time utilized. <Electronically signed by Sim Zee > 12/13/20 [id number]
--- NOTE | 2020-12-14 02:38 | ECWPNPC ---
PATIENT NAME: ALEX JI : 1965 GENDER: MALE VISIT DATE: 12/13/2020 DISCHARGE DATE: 12/13/201416 VISIT LOCKED DATE TIME: PHYSICIAN: JAVON LEONARDO MD RESOURCE: JAVON LEONARDO MD REASON FOR APPOINTMENT 1. RIGHT TRANSFORAMINAL EPIDURAL STEROID INJECTION L3-L4, L4-L5 HISTORY OF PRESENT ILLNESS GENERAL: --. FALL RISK SCREENING: SCREENING :ONE FALL WITH INJURY IN THE PAST YEAR PAIN SCREENING: PATIENT HAS A COMPLAINT OF ACUTE OR CHRONIC PAIN :YES LOCATION OF PAIN:HEAD, NECK, BOTH SHOULDERS, LOW BACK, LEG(S) INTENSITY OF PAIN (SCALE OF 1 TO 10):7 WHAT DOES YOUR PAIN FEEL LIKE:ACHING, THROBBING, SORE, SHOOTING DURATION:CONTINOUS, CONSTANT, AWAKENS FROM SLEEP PAIN IS INCREASED BY:ACTIVITIES PAIN IS DECREASED BY:USE OF PAIN MEDICATIONS PLAN/GOALS/TREATMENT/INTERVENTION/FOLLOW UP:SEE PLAN PAIN CENTER INTAKE QUESTIONS: DO YOU HAVE A HISTORY OF MRSA? :NO DO YOU TAKE A BLOOD THINNERS? :NO DO YOU HAVE ANY BLEEDING DISORDERS? :NO ANY NEW NUMBNESS OR WEAKNESS IN YOUR LEGS OR ARMS? :NO ANY PACEMAKER,DEFIBRILLATOR, OR DORSAL COLUMN STIMULATOR? :NO DO YOU HAVE ANY RASHES OR OPEN SORES? :NO ARE YOU ALLERGIC TO IV DYE? :NO ARE YOU DIABETIC? :YES 102 AM ANY NEW PROBLEMS WITH YOUR MEDICATIONS? :NO HAVE YOU RECEIVED A VACCINE IN THE PAST 30 DAYS? :NO DO YOU PLAN TO RECEIVE A VACCINE IN THE NEXT 21 DAYS? :NO DO YOU NEED ANY PRESCRIPTION? :NO DO YOU TAKE ANY IMMUNOSUPPRESSIVE MEDICATIONS? :NO ANY HISTORY OF SEIZURES? :NO ANY HISTORY OF CARDIAC ISSUES OR EVENTS? :NO DO YOU HAVE SLEEP APNEA? :NO ANY RECENT HEAD INJURY? :NO DO YOU HAVE ANY NEW INFECTIONS? :NO IS THERE A CHANCE YOU COULD BE ? :NO ARE YOU BREAST FEEDING? :NO WHEN DID YOU LAST EAT? : 12/13/20529 WHEN DID YOU LAST DRINK? : 12/13/20929 WHAT DID YOU LAST DRINK? : WATER NAME OF PERSON DRIVING YOU HOME? : DILCIA () DO YOU HAVE ANY OTHER QUESTIONS OR CONCERNS? : NO CURRENT MEDICATIONS TAKING PINDOLOL 5 MG TABLET 1 TABLET ORALLY QID, NOTES: 12/13 829 TAKING POTASSIUM CHLORIDE 10 MEQ (PRT) TABLET EXTENDED RELEASE 1 TABLET ORALLY TWICE DAILY TAKING METFORMIN HCL ER 750 MG TABLET EXTENDED RELEASE 24 HOUR ORALLY TWICE A DAY, NOTES: 12/12 2199 TAKING ATENOLOL 50 MG TABLET 1 TABLET ORALLY BID, NOTES: 12/13 599 TAKING LEVOTHYROXINE SODIUM 50 MCG TABLET 1 TABLET ORALLY ONCE A DAY TAKING TRIAMTERENE-HCTZ 37.5-25 MG TABLET 1 TABLET IN THE MORNING ORALLY ONCE A DAY, NOTES: 12/13 599 TAKING FLONASE ALLERGY RELIEF 50 MCG/ACT SUSPENSION 1 SPRAY IN EACH NOSTRIL NASALLY ONCE A DAY NEEDED TAKING MAY HAVE - - MEDICAL MARIJUANA DIRECTED, NOTES: 12/13 599 TAKING CYCLOBENZAPRINE HCL 10 MG TABLET 1 TABLET NEEDED ORALLY Q6-8H PRN FOR SEVERE MUSCLE SPASM PAIN #45 TAB. SHOULD LAST 30 DAYS, NOTES: THREE WEEKS TAKING LEVEMIR 100 UNIT/ML SOLUTION 16 UNITS SUBCUTANEOUS BID, NOTES: 12/12 2199 TAKING KETOROLAC TROMETHAMINE 10 MG TABLET 1 TABLET WITH FOOD OR MILK NEEDED ORALLY Q6H PRN FOR SEVERE PAIN MDD4, NOTES: THREE WEEKS TAKING COLACE 100 MG CAPSULE 1 CAPSULE NEEDED ORALLY ONCE A DAY TAKING BYDUREON 2 MG PEN-INJECTOR DIRECTED SUBCUTANEOUS WEEKLY TAKING BOTOX 100 UNIT SOLUTION RECONSTITUTED FOR IM INJECTION AT THE HEAD, NECK AND SHOULDER MUSCLES ICD G43.709 BOTOX APPT AT 2:30PM ON 10/25/2020. TAKING TOPAMAX 100 MG TABLET 1 TABLET ORALLY FOR PAIN TWICE A DAY TAKING AMITRIPTYLINE HCL 50 MG TABLET 3 ORALLY FOR PAIN ONCE A DAY TAKING PERCOCET 5-325 MG TABLET 1 ORALLY Q8H PRN MDD3, NOTES: 12/13 599 MDD 3 NOT-TAKING NARCAN 4 MG/0.1ML LIQUID DIRECTED NASALLY FOR OPIOID OVERDOSE, NOTES: NEVER NOT-TAKING FENTANYL 12 MCG/HR PATCH 72 HOUR 1 PATCH TO SKIN TRANSDERMAL Q72 HR=MDD, NOTES: NOT TAKING MEDICATION LIST REVIEWED AND RECONCILED WITH THE PATIENT PAST MEDICAL HISTORY DM, HTN, CHRONIC PAIN , THYROID DISEASE, GERD, MIGRANES LEFT KNEE PAIN RIGHT SHOULDER LABRIUM TEAR FUSION AT 3-4 C BACK AND NECK SPASMS CHRONIC PAIN ALLERGIES AZITHROMYCIN: LIP SWELLING - ALLERGY SUMATRIPTAN: FACIAL SWELLING - ALLERGY PROPOXYPHENE: PRICKLY FEELING, RASH, SOB - ALLERGY SOCIAL HISTORY GENERAL: TOBACCO USE ARE YOU A:NONSMOKER LATEX QUESTIONNAIRE LATEX ALLERGY : HAVE YOU EVER DEVELOPED ANY TYPE OF REACTION AFTER HANDLING LATEX PRODUCTS SUCH RUBBER GLOVES, CONDOMS, DIAPHRAGMS, BALLOONS, SOCKS, OR UNDERWEAR?NO LATEX ALLERGY : HAVE YOU EVER DEVELOPED ANY TYPE OF REACTION DURING OR AFTER DENTAL APPOINTMENT, VAGINAL/RECTAL EXAMINATION, SURGICAL PROCEDURE, OR ANY OTHER EXPOSURE?NO LATEX RISK : HAVE YOU EVER HAD ANY DIFFICULTY BREATHING OR HIVES AFTER EATING OR HANDLING ANY FRUITS, OR VEGETABLES; SUCH KIWI, BANANAS, STONE FRUITS, OR CHESTNUTSNO LATEX RISK : DO YOU HAVE A PREVIOUS PERSONAL HISTORY OF MORE THAN NINE SURGERIES, SPINA BIFIDA, OR REPEATED CATHERIZATIONS? NO LATEX RISK : ARE YOU FREQUENTLY EXPOSED TO LATEX PRODUCTS IN YOUR OCCUPATION?NO DATE ASKED : 12/10/2020 ALCOHOL USE: NO. LUNG CANCER SCREENING SMOKING STATUS:NON SMOKER ALCOHOL SCREENING DID YOU HAVE A DRINK CONTAINING ALCOHOL IN THE PAST YEAR?NO POINTS0 INTERPRETATIONNEGATIVE RECREATIONAL DRUG USE DRUG USE?NO HAS PRESCRIPTION FOR MEDICAL MARIJUANA. CAFFEINE CAFFEINE USE?NO HIV / HEP-C SCREENING HIV TEST OFFERED TO PATIENT:YES DATE OFFERED:01/17/2018 TEST ACCEPTED:NO HEP-C TEST OFFERED TO PATIENT:YES DATE OFFERED:01/17/2018 REASON:PATIENT DECLINED TEST ACCEPTED:NO REASON:PATIENT DECLINED BROCHURE PROVIDED TO PATIENTNO CATHOLIC [id number] RASTAFARIAN LANGUAGE LANGUAGES SPOKEN:AUSTRIAN LEARNING BARRIERS / SPECIAL NEEDS CHANGE FROM LAST VISIT?NO BARRIERS TO LEARNING?NO HEARING IMPAIRED?NO VISION IMPAIRED?YES COGNITIVELY IMPAIRED?NO :CORRECTIVE LENSES READINESS TO LEARN?YES LEARNING PREFERENCES?YES :BOOKLETS, HANDOUTS LEARNING CAPABILITIES PRESENT?YES EMOTIONAL BARRIERS?NO SPECIAL DEVICES?YES :CANE, WHEELCHAIR COAL PULVERIZING OPERATOR NEEDED?NO VITAL SIGNS WT 344.2 LBS, HT 78 IN, BMI 39.77 INDEX, BP 146/86 MM HG, HR 91 /MIN, RR 20 /MIN, TEMP 96.4 F, OXYGEN SAT % 95%, SAFE IN ENV? (Y/N) YES, NA INITIALS SC 12:32, REVIEWED BY: Tiffany MARK RN BSN. EXAMINATION GENERAL EXAMINATION: A HISTORY AND PHYSICAL EXAM ON THE PATIENT WAS DONE ON 12/10/2020 (DATE OF ORIGINAL ASSESSMENT) IN PREPARATION OF SURGERY/PROCEDURE. I HAVE NOW REASSESSED THIS PATIENT'S HEALTH STATUS AND PERFORMED AN UPDATED EXAM TODAY. ALL CHANGES IN THE PATIENT'S HISTORY, PHYSICAL EXAM, PRE-EXISTING CONDITONS, AND INDICATIONS/CONTRAINDICATIONS TO THE PLANNED PROCEDURE AND ANESTHESIA ARE DOCUMENTED AND EVALUATED BELOW. I ATTEST TO THE ADEQUACY AND APPROPRIATENESS OF MY ASSESSMENT, AND CONFIRM THE NECESSITY FOR THE PLANNED PROCEDURE. THE PATIENT IS ALERT, ORIENTED TIMES THREE AND COOPERATIVE. LUNGS ARE CLEAR TO AUSCULTATION. HEART SHOWS REGULAR RHYTHM, NO MURMURS AND NO GALLOPS. ASSESSMENTS INTERVERTEBRAL DISC DISORDERS WITH RADICULOPATHY, LUMBAR REGION - M51.16 (PRIMARY) TREATMENT INTERVERTEBRAL DISC DISORDERS WITH RADICULOPATHY, LUMBAR REGION [facility] FLUORO GUIDE SPINE INJECTION (PAIN)[id number] COMPLETION OF PROCEDURAL VISIT WHEN MEETS CRITERIA MED: VERSED 1MG IV MIDAZOLAMEDIN MARK 12/13/2020 12:51:16 PM > VERIFIED ALFREDO JIMENEZ 12/13/2020 01:35:48 PM - SECOND DOSE ORDERED, VERIFIED WITH ALFREDO KINNEY 12/13/2020 01:38:27 PM - THIRD DOSE ORDERED, VERIFIED WITH ALICIA DUMAS 12/13/2020 2:13:50 PM > 1 ST DOSE AT 1334, 2 ND DOSE AT 1336, 3 RD DOSE AT 1338 FOR A TOTAL DOSE MEDICATION: FENTANYL CITRATE 50MCG IV EDIN MARK 12/13/2020 12:51:34 PM > VERIFIED. ALFREDO JIMENEZ 12/13/2020 01:37:11 PM - SECOND DOSE ORDERED, VERIFIED WITH ALFREDO KINNEY 12/13/2020 01:39:09 PM - THIRD DOSE ORDERED, VERIFIED WITH ALICIA DUMAS 12/13/2020 2:14:42 PM > 1 ST DOSE AT 1335, 2 ND DOSE AT 1337, 3 RD DOSE AT 1339 FOR A TOTAL DOSE OF 150 MCG OXYGEN AT 2 LITERS PER NASAL CANNULAEDIN MARK 12/13/2020 2:34:39 PM > OXYGEN ON: 1305 OFF: 1352 IV LACTATED RINGER'S AT KVALICIA VILLALOBOS 12/13/2020 12:55:54 PM > #20 IV STARTED X 1 ATTEMPT BY THIS NURSE ADMINISTRATOR IN LEFT HAND. SITE ASYMPTOMATIC, PATIENT TOLERATED WELL. LR INFUSING AT KVO WITHOUT DIFFICULTY. EDIN MARK 12/13/2020 2:35:13 PM > PATIENT RECEIVED AT TOTAL OF 300CCS OF LR. OTHERS NOTES: 12/10/20 1442 PAT COMPLETED. NATHEN TRACK LAYER. PROCEDURES PAIN NURSING RECORD PROCEDURE IN ROOM 1302, PHYSICIAN IN ROOM 1331, START 1337, FINISH 1348, PHYSICIAN OUT OF ROOM 1350, OUT OF ROOM 1405, ECG NORMAL SINUS, PATIENT SHIELDED YES, SAFETY STRAP YES, PREP BETADINE Tiffany MARK TRACK LAYER, DRESSING TEGADERM DR. LEONARDO LOC: EDIN MARK 12/13/2020 1:05:46 PM > 1. ALERT, ORIENTED, LOC REMAINED AT BASELINE THROUGHOUT THE PROCEDURE. RESP: ARPIT MARKISSA 12/13/2020 1:05:46 PM > 1. REGULAR, NO DYSPNEA COLOR: ARPIT MARKISSA 12/13/2020 1:05:46 PM > 1. PINK SKIN: DEEDEEEDIN 12/13/2020 1:05:46 PM > 1. WARM, DRY POSITION: DEEDEEEDIN 12/13/2020 1:05:46 PM > 1. PRONE VITALS: EDIN MARK 12/13/2020 1:10:46 PM > 145/92, 86, 98% 2L NC, 18. DEEDEEEDIN 12/13/2020 1:15:27 PM > 138/89, 86, 99% 2L NC, 18. DEEDEEEDIN 12/13/2020 1:20:51 PM > 151/104, 87, 99% 2L NC, 18. DEEDEEEDIN 12/13/2020 1:25:40 PM > 147/105, 91, 99% 2L NC, 18. DEEDEEEDIN 12/13/2020 1:30:36 PM > 167/105, 89, 98% 2L NC, 18. DEEDEEEDIN 12/13/2020 1:35:36 PM > 149/91, 89, 98% 2L NC, 18. DEEDEEEDIN 12/13/2020 1:40:00 PM > 133/89. 90, 89% 2L NC, 18. DEEDEEEDIN 12/13/2020 1:45:55 PM > 143/90, 87, 95% 2L NC, 18. DEEDEEEDIN 12/13/2020 1:48:54 PM > 145/90, 89, 95% 2L NC, 18. EDIN MARK 12/13/2020 2:10:56 PM > POST PROCEDURE 144/80, 91, 95% RA, 18. COMPLETION OF PROCEDURE APPOINTMENT: POST PAIN 02/21, DRESSING SITE DRY AND INTACT, IV DISCONTINUED, SITE CLEAR, CATHETER INTACT SALINE LOCK REMOVED BY Tiffany MARK TRACK LAYER, PATIENT TOLERATED PROCEDURE WELL., GAIT WHEELCHAIR PATIENT BROUGHT TO VEHICLE VIA WHEELCHAIR DUE TO IV SEDATION., TEACHING COMPLETED, PATIENT ACKNOWLEDGES UNDERSTANDING YES, PROCEDURE APPOINTMENT COMPLETED AT BY: Tiffany MARK RN AT 1420. PN LUMBAR TRANSFORAMINAL BLOCKS PRE PROCEDURE DIAGNOSIS LUMBAR DISC DISORDER WITH RADICULOPATHY POST PROCEDURE DIAGNOSIS LUMBAR DISC DISORDER WITH RADICULOPATHY PROCEDURE RIGHT L3-L4 AND RIGHT L4-L5 TRANSFORAMINAL EPIDURAL STEROID INJECTION UNDER FLUOROSCOPIC GUIDANCE SURGEON DR JAVON LEONARDO LINE PATROLMAN NONE ANESTHESIA LOCAL WITH IV SEDATION PRE PROCEDURE NOTE THE PATIENT WITH HISTORY OF CHRONIC LOW BACK PAIN. I EVALUATED THE PATIENT AND REVIEWED THE CHART. I WENT OVER THE RISKS, ALTERNATIVES, AND BENEFITS ASSOCIATED WITH THIS PROCEDURE. THE PATIENT WOULD LIKE TO PROCEED AND GIVE CONSENT TO PERFORMED THE PROCEDURE. THE PATIENT WOULD LIKE TO MOVE FORWARD WITH IV SEDATION DUE TO ANXIETY AND DISCOMFORT ASSOCIATED WITH THE PROCEDURE. THE PATIENT DENIES UNEXPLAINABLE WEIGHT LOSS, FEVER, CHILLS, OR CHANGES IN URINARY OR BOWEL CONTROL. THE PATIENT IS COVID-19 NEGATIVE DESCRIPTION OF PROCEDURE THE PATIENT WAS BROUGHT TO THE PROCEDURE ROOM AND PLACED IN THE PRONE POSITION. THE LUMBOSACRAL AREA WAS CLEANED WITH BETADINE SOLUTION AND DRAPED ASEPTICALLY. THE PROCEDURE WAS DONE UNDER STERILE CONDITIONS. A TIMEOUT WAS PERFORMED WHERE THE CONSENTED SITE WAS VERIFIED WITH EVERYONE IN THE ROOM. UNDER FLUOROSCOPIC GUIDANCE, THE TARGET POINT WAS SELECTED AT THE RIGHT TRANSFORAMINAL OPENING OF L3 AND L4. TARGET POINT WAS SELECTED AFTER LATERAL ROTATION AND TILT OF THE MAGNIFIER OF THE C-ARM. I CONFIRMED AGAIN THE SITE OF TARGET. LIDOCAINE 0.5% WAS USED TO NUMB THE SKIN AND THE SUBCUTANEOUS TISSUE BELOW IT. AN EPIMED INTRODUCER, 18-GAUGE, WAS ADVANCED UNTIL I WENT CLOSE TO THE SELECTED TRANSFORAMINAL OPENINGS. AFTER PROPER POSITION OF THE NEEDLES WAS ACHIEVED, A 22-GAUGE, EPIMED NEEDLE, WAS PLACED INSIDE OF THE INTRODUCER AND ADVANCED TO THE TRANSFORAMINAL OPENING OF THE SELECTED SITES. WHEN PROPER POSITION OF THE NEEDLE WAS ACHIEVED, ISOVUE-M DYE 30%, 0.25 ML, WAS INJECTED SHOWING ADEQUATE SPREAD OF THE DYE. THIS WAS DONE UNDER DIGITAL SUBTRACTION AND ANGIOGRAPHY. THERE WAS NO VASCULAR UPDATE. THEN, A SOLUTION OF 1.5 ML OF BUPIVACAINE 0.25% AND DEXAMETHASONE 5 MG WAS INJECTED AT EACH SITE. THE MEDICATION WAS VERIFIED WITH THE NURSE. THERE WAS NO EVIDENCE OF BLOOD, PARESTHESIA OR CEREBROSPINAL FLUID DURING THE PROCEDURE. THE PATIENT WAS SENT TO THE RECOVERY ROOM. THE PATIENT WAS MOVING THE EXTREMITIES AND DOING WELL. THERE WAS NO COMPLICATION DURING THE PROCEDURE. ESTIMATED BLOOD LOSS WAS LESS THAN 5 ML. FLUOROSCOPY TIME WAS 36 SECONDS. THE PATIENT RECEIVED VERSED 3 MG AND FENTANYL 150 MCG IV IN DIVIDED DOSES. FACE TO FACE START TIME: 1334 FACE TO FACE END TIME: 1351 TOTAL FACE TO FACE TIME: 17 MINUTES POST PROCEDURE NOTE THE PROCEDURE DONE WAS DISCUSSED WITH THE PATIENT. THE PATIENT WILL BE SEEN IN A FOLLOW UP IN THE NEXT FEW WEEKS. I AM LOOKING FOR LONG LASTING PAIN RELIEF FOR THE PATIENT WITH THIS INTERVENTION. INSTRUCTIONS WERE GIVEN, QUESTIONS WERE ANSWERED, AND THE PATIENT EXPRESSED UNDERSTANDING AND AGREES WITH THE PLAN. I, ALFREDO JIMENEZ, DOCUMENTED THE ABOVE INFORMATION ACTING A SCRIBE FOR DR. LEONARDO. I HAVE REVIEWED THE ABOVE DOCUMENT, WRITTEN BY ALFREDO JIMENEZ, OPHTHALMIC DISPENSER, AND I VERIFY THAT IT IS ACCURATE PN WORKMANS' COMP OPINION IN YOUR OPINION, WAS THE INCIDENT THAT THE PATIENT DESCRIBED THE COMPETENT MEDICAL CAUSE OF THIS INJURY/ILLNESS? YES ARE THE PATIENT'S COMPLAINTS CONSISTENT WITH HIS/HER HISTORY OF THE INJURY/ILLNESS? YES IS THE PATIENT'S HISTORY OF THE INJURY/ILLNESS CONSISTENT WITH YOUR OBJECTIVE FINDING? YES WHAT IS THE PERCENTAGE OF TEMPORARY IMPAIRMENT? TOTAL = 100% . IS THE PATIENT WORKING? NO . DOCTOR ON SITE: JAVON VALDEZ MD PROCEDURE CODES 61431 INJ FORAMEN EPIDURAL L/S, MODIFIERS: [place] [address] INJ FORAMEN EPIDURAL [place], [place]: [place] [address] MOD SED SAME PHYS/QHP 5/>YRS DISPOSITION & COMMUNICATION FOLLOW UP FOLLOW UP WITH SUPERVISOR NURSE (REASON: POST RIGHT TRANSFORAMINAL EPIDURAL STEROID INJECTION L3-L4, L4-L5) ELECTRONICALLY SIGNED BY JAVON LEONARDO MD, MD ON 12/13/2020 AT 04:40 PM EST DISCLAIMER : THIS IS A VISIT SUMMARY EXTRACTED FROM THE [employer] CHART. IT IS NOT A COPY OF THE [employer] PROGRESS NOTE. MTDD
== END ==
LOC: M PAIN 12:30
PROVIDERS: ATTEND Anesthesiology
DX: M51.16 Intervertebral disc disorders with radiculopathy, lumbar region (principal); E11.9 Type 2 diabetes mellitus without complications; G43.909 Migraine, unspecified, not intractable, without status migrainosus; Z88.1 Allergy status to other antibiotic agents; Z88.8 Allergy status to other drugs, medicaments and biological substances; Z79.4 Long term (current) use of insulin; Z79.891 Long term (current) use of opiate analgesic; Z79.899 Other long term (current) drug therapy
CPT/HCPCS: 64483; 64484; 99152; J1100; J2250; J3010; Q9967

== ENCOUNTER → 2020-12-24 | Outpatient (CLI) | payer OTHER ==
[~2020-12-24] MED LIST changes: -BUPIVACAINE HCL 0.25% 30ML VIAL As Ordered ONE; -ISOVUE-M 300 61% 15ML VIAL As Ordered ONE; -LIDOCAINE 1% SDV 30ML VIAL As Ordered ONE; -MIDAZOLAM INJ 2MG/2ML VIAL (J2250 PER 1MG) As Ordered ONE; -dexameTHASONE 10MG/1ML VIAL PRES.FREE (J1100 PER 1MG) As Ordered ONE; -fentaNYL 100 MCG/2 ML INJECTION (J3010) As Ordered ONE
== END ==
LOC: M LABSMTC 09:46
PROVIDERS: ATTEND Anesthesiology
DX: Z20.822 Contact with and (suspected) exposure to COVID-19 (principal)

== ENCOUNTER → 2020-12-28 | Outpatient (CLI) | payer OTHER ==
--- NOTE | 2020-12-30 03:40 | ECWPNPC ---
PATIENT NAME: ALEX JI : 1965 GENDER: MALE VISIT DATE: 12/28/2020 DISCHARGE DATE: 12/28/20 1013 VISIT LOCKED DATE TIME: PHYSICIAN: BLANE EUGENE RESOURCE: BLANE EUGENE REASON FOR APPOINTMENT 1. POST RIGHT TRANSFORAMINAL EPIDURAL STEROID INJECTION L3-L4, L4-L5 WITH IV SEDATION HISTORY OF PRESENT ILLNESS GENERAL: HERE FOR POST PROCEDURE FOLLOW-UP. HAD RIGHT L3-4, L4-5 TRANSFORAMINAL EPIDURAL STEROID INJECTION ON 12/13/2020. REPORTS MARKED IMPROVEMENT IN PAIN AND PARESTHESIA IN THE L3-4 AND L4-5 DERMATOME DISTRIBUTION RIGHT LEG. CONTINUES WITH PARESTHESIA AND PAIN TRANSMITTED FROM L2-3 AND L5-S1 DERMATOMES AFFECTING RIGHT LEG. THIS IS A WORK RELATED INJURY. REVIEWED MRI OF LUMBOSACRAL SPINE AND DISCUSSED TREATMENT PLAN. -. FALL RISK SCREENING: SCREENING : NO FALLS REPORTED IN THE LAST YEAR. PAIN SCREENING: PATIENT HAS A COMPLAINT OF ACUTE OR CHRONIC PAIN :YES LOCATION OF PAIN:LOW BACK INTENSITY OF PAIN (SCALE OF 1 TO 10):4 WHAT DOES YOUR PAIN FEEL LIKE:TENDER, THROBBING, SORE DURATION:CONTINOUS, CONSTANT, ALL DAY PAIN IS INCREASED BY:ACTIVITIES, PROLONGED STANDING PAIN IS DECREASED BY:USE OF PAIN MEDICATIONS NURSING NOTE: -. PAIN CENTER INTAKE QUESTIONS: DO YOU HAVE A HISTORY OF MRSA? :NO DO YOU TAKE A BLOOD THINNERS? :NO DO YOU HAVE ANY BLEEDING DISORDERS? :NO ANY NEW NUMBNESS OR WEAKNESS IN YOUR LEGS OR ARMS? :NO ANY PACEMAKER,DEFIBRILLATOR, OR DORSAL COLUMN STIMULATOR? :NO DO YOU HAVE ANY RASHES OR OPEN SORES? :NO ARE YOU ALLERGIC TO IV DYE? :NO ARE YOU DIABETIC? :YES ANY NEW PROBLEMS WITH YOUR MEDICATIONS? :NO HAVE YOU RECEIVED A VACCINE IN THE PAST 30 DAYS? :NO DO YOU PLAN TO RECEIVE A VACCINE IN THE NEXT 21 DAYS? :NO DO YOU NEED ANY PRESCRIPTION? :NO DO YOU TAKE ANY IMMUNOSUPPRESSIVE MEDICATIONS? :NO IS THERE A CHANCE YOU COULD BE ? :NO ARE YOU BREAST FEEDING? :NO CURRENT MEDICATIONS TAKING PINDOLOL 5 MG TABLET 1 TABLET ORALLY QID TAKING POTASSIUM CHLORIDE 10 MEQ (PRT) TABLET EXTENDED RELEASE 1 TABLET ORALLY TWICE DAILY TAKING METFORMIN HCL ER 750 MG TABLET EXTENDED RELEASE 24 HOUR ORALLY TWICE A DAY TAKING ATENOLOL 50 MG TABLET 1 TABLET ORALLY BID TAKING LEVOTHYROXINE SODIUM 50 MCG TABLET 1 TABLET ORALLY ONCE A DAY TAKING TRIAMTERENE-HCTZ 37.5-25 MG TABLET 1 TABLET IN THE MORNING ORALLY ONCE A DAY TAKING FLONASE ALLERGY RELIEF 50 MCG/ACT SUSPENSION 1 SPRAY IN EACH NOSTRIL NASALLY ONCE A DAY NEEDED TAKING MAY HAVE - - MEDICAL MARIJUANA DIRECTED TAKING CYCLOBENZAPRINE HCL 10 MG TABLET 1 TABLET NEEDED ORALLY Q6-8H PRN FOR SEVERE MUSCLE SPASM PAIN #45 TAB. SHOULD LAST 30 DAYS TAKING LEVEMIR 100 UNIT/ML SOLUTION 16 UNITS SUBCUTANEOUS BID TAKING KETOROLAC TROMETHAMINE 10 MG TABLET 1 TABLET WITH FOOD OR MILK NEEDED ORALLY Q6H PRN FOR SEVERE PAIN MDD4 TAKING COLACE 100 MG CAPSULE 1 CAPSULE NEEDED ORALLY ONCE A DAY TAKING BYDUREON 2 MG PEN-INJECTOR DIRECTED SUBCUTANEOUS WEEKLY TAKING BOTOX 100 UNIT SOLUTION RECONSTITUTED FOR IM INJECTION AT THE HEAD, NECK AND SHOULDER MUSCLES ICD G43.709 BOTOX APPT AT 2:30PM ON 10/25/2020. TAKING TOPAMAX 100 MG TABLET 1 TABLET ORALLY FOR PAIN TWICE A DAY TAKING AMITRIPTYLINE HCL 50 MG TABLET 3 ORALLY FOR PAIN ONCE A DAY TAKING PERCOCET 5-325 MG TABLET 1 ORALLY TWICE PER DAY PRN SEVERE PAIN MDD2 NOT-TAKING BOTOX 100 UNIT SOLUTION RECONSTITUTED FOR IM INJECTION AT THE HEAD, NECK AND SHOULDER MUSCLES ICD G43.709 BOTOX ON 12/29/20 AT 10:40 NOT-TAKING NARCAN 4 MG/0.1ML LIQUID DIRECTED NASALLY FOR OPIOID OVERDOSE, NOTES: NEVER NOT-TAKING FENTANYL 12 MCG/HR PATCH 72 HOUR 1 PATCH TO SKIN TRANSDERMAL Q72 HR=MDD, NOTES: NOT TAKING MEDICATION LIST REVIEWED AND RECONCILED WITH THE PATIENT PAST MEDICAL HISTORY DM, HTN, CHRONIC PAIN , THYROID DISEASE, GERD, MIGRANES LEFT KNEE PAIN RIGHT SHOULDER LABRIUM TEAR FUSION AT 3-4 C BACK AND NECK SPASMS CHRONIC BACK PAIN ALLERGIES AZITHROMYCIN: LIP SWELLING - ALLERGY SUMATRIPTAN: FACIAL SWELLING - ALLERGY PROPOXYPHENE: PRICKLY FEELING, RASH, SOB - ALLERGY SOCIAL HISTORY GENERAL: TOBACCO USE ARE YOU A:NONSMOKER LATEX QUESTIONNAIRE LATEX ALLERGY : HAVE YOU EVER DEVELOPED ANY TYPE OF REACTION AFTER HANDLING LATEX PRODUCTS SUCH RUBBER GLOVES, CONDOMS, DIAPHRAGMS, BALLOONS, SOCKS, OR UNDERWEAR?NO LATEX ALLERGY : HAVE YOU EVER DEVELOPED ANY TYPE OF REACTION DURING OR AFTER DENTAL APPOINTMENT, VAGINAL/RECTAL EXAMINATION, SURGICAL PROCEDURE, OR ANY OTHER EXPOSURE?NO LATEX RISK : HAVE YOU EVER HAD ANY DIFFICULTY BREATHING OR HIVES AFTER EATING OR HANDLING ANY FRUITS, OR VEGETABLES; SUCH KIWI, BANANAS, STONE FRUITS, OR CHESTNUTSNO LATEX RISK : DO YOU HAVE A PREVIOUS PERSONAL HISTORY OF MORE THAN NINE SURGERIES, SPINA BIFIDA, OR REPEATED CATHERIZATIONS? NO LATEX RISK : ARE YOU FREQUENTLY EXPOSED TO LATEX PRODUCTS IN YOUR OCCUPATION?NO DATE ASKED : 12/28/2020 ALCOHOL USE: NO. LUNG CANCER SCREENING SMOKING STATUS:NON SMOKER ALCOHOL SCREENING DID YOU HAVE A DRINK CONTAINING ALCOHOL IN THE PAST YEAR?NO POINTS0 INTERPRETATIONNEGATIVE RECREATIONAL DRUG USE DRUG USE?NO HAS PRESCRIPTION FOR MEDICAL MARIJUANA. CAFFEINE CAFFEINE USE?NO HIV / HEP-C SCREENING HIV TEST OFFERED TO PATIENT:YES DATE OFFERED:01/17/2018 TEST ACCEPTED:NO HEP-C TEST OFFERED TO PATIENT:YES DATE OFFERED:01/17/2018 REASON:PATIENT DECLINED TEST ACCEPTED:NO REASON:PATIENT DECLINED BROCHURE PROVIDED TO PATIENTNO BAPTISM [id number] PROTESTANT LANGUAGE LANGUAGES SPOKEN:QATARI LEARNING BARRIERS / SPECIAL NEEDS CHANGE FROM LAST VISIT?NO BARRIERS TO LEARNING?NO HEARING IMPAIRED?NO VISION IMPAIRED?YES :CORRECTIVE LENSES COGNITIVELY IMPAIRED?NO READINESS TO LEARN?YES LEARNING PREFERENCES?YES :BOOKLETS, HANDOUTS LEARNING CAPABILITIES PRESENT?YES EMOTIONAL BARRIERS?NO SPECIAL DEVICES?YES :CANE, WHEELCHAIR, OTHER EDITOR SOUND NEEDED?NO REVIEW OF SYSTEMS CONSTITUTIONAL: ANY RECENT FEVER NO . CHILLS NO . WEIGHT CHANGE OF UNKNOWN REASONS NO . GASTROENTEROLOGY: NEW UNEXPLAINABLE CHANGES IN BOWEL CONTROL NO . CONSTIPATION NO . GENITOURINARY: ANY NEW CHANGE IN BLADDER CONTROL? NO . NEUROLOGY: NEW ONSET DIZZINESS OR NEUROLOGICAL CHANGES NOT MENTIONED NO . NEW NUMBNESS OR PAIN PATTERNS NOT MENTIONED AND PERTINENT TO TODAY'S VISIT NO . CARDIOLOGY: NEW CHEST PRESSURE NO . PATIENT DENIES NO . RESPIRATORY: UNEXPLAINABLE COUGH NO . NEW SHORTNESS OF BREATH NO . VITAL SIGNS WT 339.8 LBS, HT 78 IN, BMI 39.26 INDEX, BP 138/94 MM HG, HR 98 /MIN, RR 18 /MIN, TEMP 97.5 F, OXYGEN SAT % 95%, SAFE IN ENV? (Y/N) YES, NA INITIALS AW 0934T.UNIQUE VALDEZ. EXAMINATION GENERAL EXAMINATION: GENERALWALKS WITH ANTALGIC GAIT AND ASSIST OF CANE. PSYCHAPPROPRIATE MOOD AND AFFECT . LUNGS:CLEAR TO AUSCULTATION BILATERALLY, NO WHEEZES, RHONCHI, RALES. HEART:NO MURMURS, REGULAR RATE AND RHYTHM. MUSCULOSKELETAL:WEAKNESS NOTED OVER RIGHT LEG COMPARED TO LEFT. PATIENT HAS DIFFICULTY RAISING TO A STANDING POSITION . LUMBAR: PALPATION: + FOR PAIN OVER L/S SPINE. + FOR PAIN OVER L/S PARSPINALS. ASSESSMENTS OTHER CHRONIC PAIN - G89.29 (PRIMARY) INTERVERTEBRAL DISC DISORDER WITH RADICULOPATHY OF LUMBAR REGION - M51.16 TREATMENT OTHER CHRONIC PAIN PAIN PROCEDURE LOGDATE OF PROCEDURE1PROCEDURE:RIGHT TRANSFORAMINAL EPIDURAL STERIOD INJECTION L3-L4,L4-[id number] OF PRE SEDATEVERSED 1MG, FENTANYL CITRATE 50MCGRESULT:MARKED REDUCTION IN PAIN AND DERMATOME REGION RIGHT LEG L3-4, L4-5 NOTES: RIGHT TRANSFORAMINAL EPIDURAL STERIOD INJECTION L2-3,L5-S1 WITH IV SEDATION. PROCEDURES PN WORKMANS' COMP OPINION IN YOUR OPINION, WAS THE INCIDENT THAT THE PATIENT DESCRIBED THE COMPETENT MEDICAL CAUSE OF THIS INJURY/ILLNESS? YES ARE THE PATIENT'S COMPLAINTS CONSISTENT WITH HIS/HER HISTORY OF THE INJURY/ILLNESS? YES IS THE PATIENT'S HISTORY OF THE INJURY/ILLNESS CONSISTENT WITH YOUR OBJECTIVE FINDING? YES WHAT IS THE PERCENTAGE OF TEMPORARY IMPAIRMENT? MARKED = 75% IS THE PATIENT WORKING? NO DOCTOR ON SITE: JAVON VALDEZ MD PROCEDURE CODES FA211 ESTABILISHED PATIENT [facility] FACILITY CHARGE DISPOSITION & COMMUNICATION FOLLOW UP DR Jeniffer UGALDE (REASON: RIGHT TRANSFORAMINAL EPIDURAL STERIOD INJECTION L2-3,L5-S1 WITH IV SEDATION) ELECTRONICALLY SIGNED BY MEKA BAPTISTE ON 12/29/2020 AT 11:52 AM EDT DISCLAIMER : THIS IS A VISIT SUMMARY EXTRACTED FROM THE [employer] CHART. IT IS NOT A COPY OF THE [employer] PROGRESS NOTE. NAHEED
== END ==
LOC: M PAIN 09:15
PROVIDERS: ATTEND Nurse Practitioner Family
DX: G89.29 Other chronic pain (principal); M51.16 Intervertebral disc disorders with radiculopathy, lumbar region; E11.9 Type 2 diabetes mellitus without complications; I10 Essential (primary) hypertension; E07.9 Disorder of thyroid, unspecified; K21.9 Gastro-esophageal reflux disease without esophagitis; G43.909 Migraine, unspecified, not intractable, without status migrainosus; Z79.84 Long term (current) use of oral hypoglycemic drugs; Z79.891 Long term (current) use of opiate analgesic; Z79.899 Other long term (current) drug therapy; Z88.1 Allergy status to other antibiotic agents; Z88.8 Allergy status to other drugs, medicaments and biological substances

== ENCOUNTER → 2020-12-29 | Outpatient (CLI) | payer OTHER ==
[~2020-12-29] MED LIST changes: +BOTOX THERAPEUTIC 100 UNIT VIAL (J0585 PER 1 UNIT) IM ONE; +diazePAM 5MG TABLET As Ordered ONE; +oxyCODONE 5MG TAB As Ordered ONE
--- NOTE | 2020-12-31 02:51 | ECWPNPC ---
PATIENT NAME: ALEX JI : 1965 GENDER: MALE VISIT DATE: 12/29/2020 DISCHARGE DATE: 12/29/20 1251 VISIT LOCKED DATE TIME: PHYSICIAN: JAVON LEONARDO MD RESOURCE: JAVON LEONARDO MD REASON FOR APPOINTMENT 1. BOTOX INJECTIONS TO HEAD, NECK, SHOULDERS HISTORY OF PRESENT ILLNESS GENERAL: -. FALL RISK SCREENING: SCREENING 1 FALL REPORTED IN THE LAST YEAR WITH INJURY. PAIN SCREENING: PATIENT HAS A COMPLAINT OF ACUTE OR CHRONIC PAIN :YES LOCATION OF PAIN:HEAD, NECK, BOTH SHOULDERS INTENSITY OF PAIN (SCALE OF 1 TO 10):7 WHAT DOES YOUR PAIN FEEL LIKE:ACHING, CONTINOUS, THROBBING DURATION:CONTINOUS, CONSTANT PAIN IS INCREASED BY:ACTIVITIES PAIN IS DECREASED BY:USE OF PAIN MEDICATIONS NURSING NOTE: -. PAIN CENTER INTAKE QUESTIONS: DO YOU HAVE A HISTORY OF MRSA? :NO DO YOU TAKE A BLOOD THINNERS? :NO DO YOU HAVE ANY BLEEDING DISORDERS? :NO ANY NEW NUMBNESS OR WEAKNESS IN YOUR LEGS OR ARMS? :NO ANY PACEMAKER,DEFIBRILLATOR, OR DORSAL COLUMN STIMULATOR? :NO DO YOU HAVE ANY RASHES OR OPEN SORES? :NO ARE YOU ALLERGIC TO IV DYE? :NO ARE YOU DIABETIC? :YES ANY NEW PROBLEMS WITH YOUR MEDICATIONS? :NO HAVE YOU RECEIVED A VACCINE IN THE PAST 30 DAYS? :NO DO YOU PLAN TO RECEIVE A VACCINE IN THE NEXT 21 DAYS? :NO DO YOU TAKE ANY IMMUNOSUPPRESSIVE MEDICATIONS? :NO ANY HISTORY OF SEIZURES? :NO ANY HISTORY OF CARDIAC ISSUES OR EVENTS? :NO DO YOU HAVE ANY KIDNEY OR LIVER DISEASE? :NO DO YOU HAVE SLEEP APNEA? :NO ANY RECENT HEAD INJURY? :NO DO YOU HAVE ANY NEW INFECTIONS? :NO IS THERE A CHANCE YOU COULD BE ? :NO ARE YOU BREAST FEEDING? :NO WHEN DID YOU LAST EAT? : 12/28/20 WHEN DID YOU LAST DRINK? : 12/29/20 0630 WHAT DID YOU LAST DRINK? : GREEN TEA NAME OF PERSON DRIVING YOU HOME? : BRAD DO YOU HAVE ANY OTHER QUESTIONS OR CONCERNS? : - CURRENT MEDICATIONS TAKING PINDOLOL 5 MG TABLET 1 TABLET ORALLY QID TAKING POTASSIUM CHLORIDE 10 MEQ (PRT) TABLET EXTENDED RELEASE 1 TABLET ORALLY TWICE DAILY TAKING METFORMIN HCL ER 750 MG TABLET EXTENDED RELEASE 24 HOUR ORALLY TWICE A DAY, NOTES: 12/28/20 TAKING ATENOLOL 50 MG TABLET 1 TABLET ORALLY BID TAKING LEVOTHYROXINE SODIUM 50 MCG TABLET 1 TABLET ORALLY ONCE A DAY TAKING TRIAMTERENE-HCTZ 37.5-25 MG TABLET 1 TABLET IN THE MORNING ORALLY ONCE A DAY TAKING FLONASE ALLERGY RELIEF 50 MCG/ACT SUSPENSION 1 SPRAY IN EACH NOSTRIL NASALLY ONCE A DAY NEEDED TAKING MAY HAVE - - MEDICAL MARIJUANA DIRECTED TAKING CYCLOBENZAPRINE HCL 10 MG TABLET 1 TABLET NEEDED ORALLY Q6-8H PRN FOR SEVERE MUSCLE SPASM PAIN #45 TAB. SHOULD LAST 30 DAYS TAKING LEVEMIR 100 UNIT/ML SOLUTION 16 UNITS SUBCUTANEOUS BID, NOTES: 12/28/20 TAKING KETOROLAC TROMETHAMINE 10 MG TABLET 1 TABLET WITH FOOD OR MILK NEEDED ORALLY Q6H PRN FOR SEVERE PAIN MDD4 TAKING COLACE 100 MG CAPSULE 1 CAPSULE NEEDED ORALLY ONCE A DAY TAKING BYDUREON 2 MG PEN-INJECTOR DIRECTED SUBCUTANEOUS WEEKLY, NOTES: 12/27/20 TAKING BOTOX 100 UNIT SOLUTION RECONSTITUTED FOR IM INJECTION AT THE HEAD, NECK AND SHOULDER MUSCLES ICD G43.709 BOTOX APPT AT 2:30PM ON 10/25/2020. TAKING TOPAMAX 100 MG TABLET 1 TABLET ORALLY FOR PAIN TWICE A DAY TAKING AMITRIPTYLINE HCL 50 MG TABLET 3 ORALLY FOR PAIN ONCE A DAY TAKING PERCOCET 5-325 MG TABLET 1 ORALLY TWICE PER DAY PRN SEVERE PAIN MDD2, NOTES: 12/29/20 0600 NOT-TAKING BOTOX 100 UNIT SOLUTION RECONSTITUTED FOR IM INJECTION AT THE HEAD, NECK AND SHOULDER MUSCLES ICD G43.709 BOTOX ON 12/29/20 AT 10:40 NOT-TAKING NARCAN 4 MG/0.1ML LIQUID DIRECTED NASALLY FOR OPIOID OVERDOSE, NOTES: NEVER NOT-TAKING FENTANYL 12 MCG/HR PATCH 72 HOUR 1 PATCH TO SKIN TRANSDERMAL Q72 HR=MDD, NOTES: NOT TAKING MEDICATION LIST REVIEWED AND RECONCILED WITH THE PATIENT PAST MEDICAL HISTORY DM, HTN, CHRONIC PAIN , THYROID DISEASE, GERD, MIGRANES LEFT KNEE PAIN RIGHT SHOULDER LABRIUM TEAR FUSION AT 3-4 C BACK AND NECK SPASMS CHRONIC PAIN ALLERGIES AZITHROMYCIN: LIP SWELLING - ALLERGY SUMATRIPTAN: FACIAL SWELLING - ALLERGY PROPOXYPHENE: PRICKLY FEELING, RASH, SOB - ALLERGY SOCIAL HISTORY GENERAL: TOBACCO USE ARE YOU A:NONSMOKER LATEX QUESTIONNAIRE LATEX ALLERGY : HAVE YOU EVER DEVELOPED ANY TYPE OF REACTION AFTER HANDLING LATEX PRODUCTS SUCH RUBBER GLOVES, CONDOMS, DIAPHRAGMS, BALLOONS, SOCKS, OR UNDERWEAR?NO LATEX ALLERGY : HAVE YOU EVER DEVELOPED ANY TYPE OF REACTION DURING OR AFTER DENTAL APPOINTMENT, VAGINAL/RECTAL EXAMINATION, SURGICAL PROCEDURE, OR ANY OTHER EXPOSURE?NO DATE ASKED : 12/10/2020 LATEX RISK : HAVE YOU EVER HAD ANY DIFFICULTY BREATHING OR HIVES AFTER EATING OR HANDLING ANY FRUITS, OR VEGETABLES; SUCH KIWI, BANANAS, STONE FRUITS, OR CHESTNUTSNO LATEX RISK : DO YOU HAVE A PREVIOUS PERSONAL HISTORY OF MORE THAN NINE SURGERIES, SPINA BIFIDA, OR REPEATED CATHERIZATIONS? NO LATEX RISK : ARE YOU FREQUENTLY EXPOSED TO LATEX PRODUCTS IN YOUR OCCUPATION?NO ALCOHOL USE: NO. LUNG CANCER SCREENING SMOKING STATUS:NON SMOKER ALCOHOL SCREENING DID YOU HAVE A DRINK CONTAINING ALCOHOL IN THE PAST YEAR?NO POINTS0 INTERPRETATIONNEGATIVE RECREATIONAL DRUG USE DRUG USE?NO HAS PRESCRIPTION FOR MEDICAL MARIJUANA. CAFFEINE CAFFEINE USE?NO HIV / HEP-C SCREENING HIV TEST OFFERED TO PATIENT:YES DATE OFFERED:01/17/2018 TEST ACCEPTED:NO HEP-C TEST OFFERED TO PATIENT:YES DATE OFFERED:01/17/2018 REASON:PATIENT DECLINED TEST ACCEPTED:NO REASON:PATIENT DECLINED BROCHURE PROVIDED TO PATIENTNO RESTORATIONIST [id number] PENTECOSTAL LANGUAGE LANGUAGES SPOKEN:VIETNAMESE LEARNING BARRIERS / SPECIAL NEEDS CHANGE FROM LAST VISIT?NO BARRIERS TO LEARNING?NO HEARING IMPAIRED?NO VISION IMPAIRED?YES COGNITIVELY IMPAIRED?NO :CORRECTIVE LENSES READINESS TO LEARN?YES LEARNING PREFERENCES?YES :BOOKLETS, HANDOUTS LEARNING CAPABILITIES PRESENT?YES EMOTIONAL BARRIERS?NO SPECIAL DEVICES?YES :CANE, WHEELCHAIR CARDIOLOGY PHYSICIAN NEEDED?NO VITAL SIGNS WT 339.8 LBS, HT 78 IN, BMI 39.26 INDEX, BP 157/95 MM HG, HR 85 /MIN, RR 20 /MIN, TEMP 97.1 F, OXYGEN SAT % 96%, NA INITIALS SC 11:07. EXAMINATION GENERAL EXAMINATION: THE PATIENT IS ALERT, ORIENTED TIMES THREE AND COOPERATIVE. LUNGS ARE CLEAR TO AUSCULTATION. HEART SHOWS REGULAR RHYTHM, NO MURMURS AND NO GALLOPS. ASSESSMENTS CHRONIC MIGRAINE - G43.709 (PRIMARY) TREATMENT CHRONIC MIGRAINE MEDICATION: VALIUM TAB 10MG ORALLY (DIAZEPAM)MELLISA PADILLA 12/29/2020 11:18:01 AM > VERIFIED DAQUAN SONG 12/29/2020 11:24:59 AM > ADMINISTERED MEDICATION: OXYCODONE HCL TAB 10MG ORALLYLILLIANATRASMELLISA 12/29/2020 11:18:18 AM > VERIFIED DAQUAN SONG 12/29/2020 11:25:24 AM > ADMINISTERED COMPLETION OF PROCEDURAL VISIT WHEN MEETS CRITERIA OTHERS NOTES: PAT DONE 12/27/20 Alanna SONG PILE DRIVER OPERATOR BARGE MOUNTED. PROCEDURES PAIN NURSING RECORD PROCEDURE IN ROOM 1200, PHYSICIAN IN ROOM 1218, START 1223, FINISH 1230, PHYSICIAN OUT OF ROOM 1232, OUT OF ROOM 1243, ECG N/A, PATIENT SHIELDED NO, SAFETY STRAP NO, PREP ALCOHOL, DRESSING N/A LOC: 1. ALERT, ORIENTED NEVA SEALS 12/29/2020 12:28:29 PM > RESP: 1. REGULAR, NO DYSPNEA NEVA SEALS 12/29/2020 12:28:35 PM > COLOR: 1. PINK NEVA SEALS 12/29/2020 12:28:40 PM > SKIN: 1. WARM, DRY NEVA SEALS 12/29/2020 12:28:46 PM > POSITION: 2. SUPINE NEVA SEALS 12/29/2020 12:28:52 PM > VITALS: 162/88 88 18 99 % ON RA 1240 KONSTANTIN CANNON PN BOTOX INJECTIONS FIRST INJECTION PRE PROCEDURE DIAGNOSIS CHRONIC MIGRAINE HEADACHES POST PROCEDURE DIAGNOSIS CHRONIC MIGRAINE HEADACHES PROCEDURE BOTOX INJECTION AT THE HEAD, NECK AND SHOULDERS SURGEON DR. JAVON LEONARDO COMMUNITY SERVICE MANAGER NONE ANESTHESIA NONE PRE PROCEDURE NOTE THE PATIENT HAS HISTORY OF CHRONIC MIGRAINE HEADACHES. I EVALUATED THE PATIENT AND REVIEWED THE CHART. I WENT OVER THE RISKS, ALTERNATIVES, AND BENEFITS ASSOCIATED WITH THIS PROCEDURE. THE PATIENT WOULD LIKE TO PROCEED AND GAVE CONSENT TO PERFORM THE PROCEDURE. THE PATIENT DENIES UNEXPLAINABLE WEIGHT LOSS, FEVER, CHILLS, OR NEW CHANGES IN URINARY OR BOWEL CONTROL. THE PATIENT STATES THAT BEFORE BOTOX, HE WAS HAVING HEADACHES EVERY DAY. THE PATIENT STATES THAT 1 OR 2 MONTHS AFTER THE BOTOX, HE NOTICED ABOUT 13 HEADACHES PER MONTH. THE PATIENT HAS USED THE MEDICATIONS LISTED IN THE CHART TO TREAT THE HEADACHES FOR MANY MONTHS BUT THE HEADACHES PERSIST DESCRIBED ABOVE. THE PATIENT IS COVID-19 NEGATIVE DESCRIPTION OF PROCEDURE THE PATIENT WAS BROUGHT TO THE PROCEDURE ROOM AND PLACED IN THE SUPINE POSITION. A TIMEOUT WAS PERFORMED WHERE THE CONSENTED SITE WAS VERIFIED WITH EVERYONE IN THE ROOM FOR THE PROCEDURE I USED A SOLUTION OF 5 UNITS OF BOTOX PER EACH 0.1 ML OF THE SOLUTION. I USED A 30-GAUGE NEEDLE TO INJECT THE SOLUTION AT THE SELECTED LOCATIONS. I INJECTED FIRST THE RIGHT AND LEFT RODEO PERFORMER MUSCLES. THE LANDMARK FOR BOTH INJECTIONS WAS APPROXIMATELY 1 CM ABOVE THE SUPERIOR MEDIAL EDGE OF THE EYEBROW. AFTER THESE TWO INJECTIONS, I INJECTED THE PROCERUS MUSCLE AT THE MIDLINE POINT BETWEEN THESE FIRST TWO INJECTIONS. THEN I PROCEEDED TO INJECT THE RIGHT AND LEFT FRONTALIS MUSCLE. TWO INJECTIONS WERE DONE IN EACH SIDE. THE FIRST INJECTION WAS DONE APPROXIMATELY 2 CM ABOVE THE FIRST INJECTION OF THE RODEO PERFORMER. THE SECOND INJECTION WAS DONE APPROXIMATELY 1.5 CM LATERAL TO THIS FIST INJECTION OF THE FRONTALIS OF EACH SIDE. AFTER THE INJECTIONS OVER THE FOREHEAD WERE DONE, I INJECTED 2.5 UNITS OF BOTOX IN 2 SPOTS ON THE LEFT SIDE OF THE CORONAL PLANE ON THE TOP OF HIS HEAD AND 2.5 UNITS IN 2 SPOTS OVER THE RIGHT SIDE OF THE CORONAL AREA FOR A TOTAL OF 10 UNITS OF ADDITIONAL BOTOX. THEN THE PATIENT'S HEAD WAS TURNED TO THE LEFT SIDE AND WE STARTED TO WORK WITH THE RIGHT TEMPORALIS MUSCLE. FIRST INJECTION WAS DONE IN A VERTICAL LINE OF THE TRAGUS APPROXIMATELY 3 CM ABOVE THE TRAGUS. THE SECOND INJECTION WAS DONE APPROXIMATELY 2 CM ABOVE THE FIRST INJECTION. THE THIRD INJECTION WAS DONE APPROXIMATELY 1 CM FORWARD FROM THIS VERTICAL LINE CREATED AT THE LEVEL OF THE TRAGUS, LONGTERM BETWEEN THESE TWO INJECTIONS. THE FOURTH INJECTION WAS DONE APPROXIMATELY 1.5 CM BACK FROM THE SECOND INJECTION TO THE TEMPORALIS IN LINE TO THE MIDPORTION OF THE EAR. THEN, WE PROCEEDED TO INJECT THE LEFT TEMPORALIS MUSCLE. WE CLEANED THE AREA WITH ALCOHOL AND PROCEEDED TO PERFORM THE SAME FOR INJECTIONS DESCRIBED ABOVE BUT IN THE LEFT TEMPORALIS MUSCLE USING THE SAME LANDMARKS. AFTER THESE INJECTIONS WERE DONE, THE PATIENT WAS SEATED. FIRST, WE STARTED TO INJECT THE LEFT AND RIGHT OCCIPITALIS MUSCLE. I INJECTED AT THE FOLLOWING PLACES IN THE RIGHT AND LEFT MUSCLE. THE FIRST INJECTION WAS DONE AT THE MIDPOINT POSITION BETWEEN THE MASTOID PROCESS AND THE INION OF THE OCCIPITAL PROTUBERANCE. THE SECOND INJECTION WAS DONE APPROXIMATELY 1.5 CM SUPERIOR AND LATERAL OF THIS POINT. THE THIRD INJECTION WAS DONE APPROXIMATELY 1.5 CM SUPERIOR AND MEDIAL TO THIS FIRST INJECTION. NEXT, I PROCEEDED TO INJECT THE RIGHT AND LEFT PARASPINAL MUSCLES. LANDMARK OF THE INJECTION WERE APPROXIMATELY: FIRST INJECTION 3 CM BELOW THE INION AND 1 CM LATERAL TO THE MIDLINE AND SECOND INJECTION AT EACH SIDE WAS DONE APPROXIMATELY 1.5 CM SUPERIOR AND LATERAL OF THE FIRST INJECTION. THE LAST GROUP OF INJECTIONS WAS DONE OVER THE RIGHT AND LEFT TRAPEZIUS MUSCLE OVER THE SHOULDERS AREA. THE FIRST INJECTION WAS DONE AT THE MIDPOINT BETWEEN THE INFLECTION POINT BETWEEN THE NECK AND SHOULDER AND THE ACROMION. THE SECOND AND THIRD INJECTIONS WERE DONE APPROXIMATELY 2.5 CM LATERAL AND MEDIAL FROM THIS FIRST INJECTION. SAME TARGETS WERE USED IN THE RIGHT AND LEFT SIDE. IN TOTAL, I INJECTED 165 UNITS OF BOTOX. THE MEDICATIONS WERE VERIFIED WITH THE NURSE. PROCEDURE WAS DONE WITHOUT EVIDENCE OF PARESTHESIA OR ANY COMPLICATIONS. THE PATIENT TOLERATED THE PROCEDURE VERY WELL. ESTIMATED BLOOD LOSS WAS LESS THAN 5 ML. THE PATIENT WAS SENT TO THE RECOVERY ROOM FOR OBSERVATIONS. INJECTIONS WERE DONE AFTER CLEANING WITH ALCOHOL, USING ASEPTIC TECHNIQUES POST PROCEDURE NOTE THE PROCEDURE DONE WAS DISCUSSED WITH THE PATIENT. THE PATIENT WILL BE SEEN IN A FOLLOW UP IN THE NEXT FEW WEEKS. I AM LOOKING FOR LONG LASTING PAIN RELIEF FOR THE PATIENT WITH THIS INTERVENTION. INSTRUCTIONS WERE GIVEN, QUESTIONS WERE ANSWERED, AND THE PATIENT EXPRESSED UNDERSTANDING AND AGREES WITH THE PLAN. I, ALFREDO JIMENEZ, DOCUMENTED THE ABOVE INFORMATION ACTING A SCRIBE FOR DR. LEONARDO. I HAVE REVIEWED THE ABOVE DOCUMENT, WRITTEN BY ALFREDO JIMENEZ, CERTIFIED CREDIT COUNSELOR, AND I VERIFY THAT IT IS ACCURATE PN WORKMANS' COMP OPINION IN YOUR OPINION, WAS THE INCIDENT THAT THE PATIENT DESCRIBED THE COMPETENT MEDICAL CAUSE OF THIS INJURY/ILLNESS? YES ARE THE PATIENT'S COMPLAINTS CONSISTENT WITH HIS/HER HISTORY OF THE INJURY/ILLNESS? YES IS THE PATIENT'S HISTORY OF THE INJURY/ILLNESS CONSISTENT WITH YOUR OBJECTIVE FINDING? YES WHAT IS THE PERCENTAGE OF TEMPORARY IMPAIRMENT? TOTAL = 100% . IS THE PATIENT WORKING? NO . DOCTOR ON SITE: JAVON VALDEZ MD PROCEDURE CODES 19672 CHEMODENERV MUSC MIGRAINE DISPOSITION & COMMUNICATION FOLLOW UP FOLLOW UP WITH MACHINE STAMPER (REASON: POST BOTOX INJECTIONS TO HEAD, NECK AND SHOULDER AREAS) ELECTRONICALLY SIGNED BY JAVON LEONARDO MD, MD ON 12/30/2020 AT 03:37 PM EDT DISCLAIMER : THIS IS A VISIT SUMMARY EXTRACTED FROM THE [employer] CHART. IT IS NOT A COPY OF THE [employer] PROGRESS NOTE. NAHEED
== END ==
LOC: M PAIN 10:40
PROVIDERS: ATTEND Anesthesiology
DX: G43.709 Chronic migraine without aura, not intractable, without status migrainosus (principal); E11.9 Type 2 diabetes mellitus without complications; I10 Essential (primary) hypertension; E07.9 Disorder of thyroid, unspecified; K21.9 Gastro-esophageal reflux disease without esophagitis; Z98.1 Arthrodesis status; Z79.891 Long term (current) use of opiate analgesic; Z79.899 Other long term (current) drug therapy; Z88.1 Allergy status to other antibiotic agents; Z88.8 Allergy status to other drugs, medicaments and biological substances
CPT/HCPCS: 64615; J0585

== ENCOUNTER 2021-01-19 14:46 | Emergency (ER) | payer OTHER ==
[~2021-01-19] VITALS: Ht 198.1 cm; Wt 145.4 kg
[2021-01-19] MEDS ORDERED: NS 500 ML IV ONE (15:30)
[2021-01-19 16:05] LABS: BASO # 0.1 10^3/uL (0.0-0.2); BASO % 0.7 % (0.0-1.0); EOS # 0.2 10^3/uL (0.0-0.5); EOS % 1.8 % (0.0-3.0); HEMATOCRIT 48.5 % (42.0-52.0); HEMOGLOBIN 16.4 g/dl (13.5-17.5); LYMPH # 2.1 10^3/uL (1.5-5.0); LYMPH % 15.1 % (24.0-44.0); MEAN CORPUSCULAR HEMOGLOBIN 29.4 pg (27.0-33.0); MEAN CORPUSCULAR HGB CONC 33.8 g/dl (32.0-36.5); MEAN CORPUSCULAR VOLUME 87.1 fl (80.0-96.0); MONO # 1.1 10^3/uL (0.0-0.8); MONO % 8.2 % (2.0-8.0); NEUTROPHILS % 72.9 % (36.0-66.0); PLATELET COUNT, AUTOMATED 340 10^3/uL (150-450); RED BLOOD COUNT 5.57 10^6/uL (4.30-6.10); WHITE BLOOD COUNT 13.7 10^3/uL (4.0-10.0)
--- NOTE | 2021-01-19 16:12 | REP ---
INDICATION: CHEST PAIN. COMPARISON: 05/17/2020. TECHNIQUE: SINGLE PORTABLE AP VIEW OF THE CHEST WAS PERFORMED. FINDINGS: There is no acute infiltrate. There is mild cardiomegaly. The mediastinal silhouette is unchanged. IMPRESSION: Mild cardiomegaly. No acute infiltrate. <Electronically signed by Sim Zee > 01/19/21 [id number]
[2021-01-19 16:38] LABS: ACETAMINOPHEN LEVEL < 2.0 UG/ML (10.0-30.0); ALBUMIN 3.8 GM/DL (3.2-5.2); ALT/SGPT 43 U/L (12-78); BILIRUBIN,DIRECT 0.2 MG/DL (0.0-0.2); BILIRUBIN,TOTAL 0.9 MG/DL (0.2-1.0); BLOOD UREA NITROGEN 23 MG/DL (7-18); CALCIUM LEVEL 8.8 MG/DL (8.5-10.1); CARBON DIOXIDE LEVEL 27 MEQ/L (21-32); CHLORIDE LEVEL 104 MEQ/L (98-107); CREATININE FOR GFR 1.27 MG/DL (0.70-1.30); ETHYL ALCOHOL (ETHANOL) < 0.003 % (0.000-0.010); FREE T4 1.04 NG/DL (0.76-1.46); GLOMERULAR FILTRATION RATE > 60.0 (>56); GLUCOSE, FASTING 142 MG/DL (70-100); LIPASE 110 U/L (73-393); POTASSIUM SERUM 3.6 MEQ/L (3.5-5.1); SALICYLATE LEVEL < 1.7 MG/DL (5.0-30.0); SODIUM LEVEL 137 MEQ/L (136-145); THYROID STIMULATING HORMONE 0.997 uIU/ML (0.358-3.740); TOTAL PROTEIN 6.5 GM/DL (6.4-8.2)
[2021-01-19 16:41] LABS: CK-MB VALUE MASS 3.1 NG/ML (<3.6); CPK CREATINE PHOSPHOKINASE 172 U/L (39-308); TROPONIN I < 0.02 NG/ML (< 0.10)
[2021-01-19] MEDS ORDERED: KETOROLAC 30 MG/ML 1ML VIAL IV ONE (17:05)
[2021-01-19] MEDS ORDERED: MORPHINE 4 MG/ML 1ML VIAL/SYRINGE (J2270) IV ONE (18:35)
[2021-01-19 20:45] VITALS: BP 144/91
--- NOTE | 2021-01-20 01:29 | ECGEPIP ---
[facility] - ED Test Date: 2021-01-19 Pat Name: ALEX JI Department: Room: - Gender: Male Seismic Prospecting Observer: JLUIANNA CANNON : 1965 Requested By: Mattie Busch Order Number: [id number] Reading MD: Robert Cohn Measurements Intervals Printer Rate: 95 P: 11 OH: 142 QRS: 2 QRSD: 146 T: 4 QT: 396 QTc: 497 Interpretive Statements Normal sinus rhythm Nonspecific intraventricular block SIMILAR TO 09/03/20 Electronically Signed on 01-20-2021 1:29:26 EDT by Robert Cohn
== END 2021-01-19 20:50 | disposition home or self-care (01) ==
LOC: M ED 14:46
DX: M54.9 Dorsalgia, unspecified (principal); T40.7X5A Adverse effect of cannabis (derivatives), initial encounter; X58.XXXA Exposure to other specified factors, initial encounter; Y92.89 Other specified places as the place of occurrence of the external cause; E10.9 Type 1 diabetes mellitus without complications; I10 Essential (primary) hypertension; K21.9 Gastro-esophageal reflux disease without esophagitis; F33.9 Major depressive disorder, recurrent, unspecified; G43.909 Migraine, unspecified, not intractable, without status migrainosus; Z79.4 Long term (current) use of insulin; Z79.899 Other long term (current) drug therapy; Z88.1 Allergy status to other antibiotic agents; Z88.8 Allergy status to other drugs, medicaments and biological substances
CPT/HCPCS: 71045; 80048; 80076; 80143; 82077; 82550; 82553; 83690; 84439; 84443; 84484; 85025; 93005; 93041; 94760; 96361; 96374; 96375; 99285; J1885; J2270

== ENCOUNTER → 2021-01-19 | Outpatient (REF) | payer MEDICARE ==
[~2021-01-19] MED LIST changes: -BOTOX THERAPEUTIC 100 UNIT VIAL (J0585 PER 1 UNIT) IM ONE; +[UNRECOGNIZED DRUG - OTHER] PO; -diazePAM 5MG TABLET As Ordered ONE; -oxyCODONE 5MG TAB As Ordered ONE
[2021-01-20 14:00] LABS: ALBUMIN 3.7 GM/DL (3.2-5.2); ALT/SGPT 40 U/L (12-78); BILIRUBIN,TOTAL 0.9 MG/DL (0.2-1.0); BLOOD UREA NITROGEN 20 MG/DL (7-18); CALCIUM LEVEL 9.1 MG/DL (8.5-10.1); CARBON DIOXIDE LEVEL 23 MEQ/L (21-32); CHLORIDE LEVEL 102 MEQ/L (98-107); CREATININE FOR GFR 1.24 MG/DL (0.70-1.30); GLOMERULAR FILTRATION RATE > 60.0 (>56); GLUCOSE, FASTING 132 MG/DL (70-100); POTASSIUM SERUM 3.6 MEQ/L (3.5-5.1); SODIUM LEVEL 135 MEQ/L (136-145); TOTAL PROTEIN 6.5 GM/DL (6.4-8.2)
== END ==
LOC: M LAB REF 13:29
PROVIDERS: ATTEND Nurse Practitioner Family
DX: Z00.01 Encounter for general adult medical examination with abnormal findings (principal); Z79.899 Other long term (current) drug therapy; Z79.84 Long term (current) use of oral hypoglycemic drugs; Z79.891 Long term (current) use of opiate analgesic

== ENCOUNTER → 2021-01-28 | Outpatient (CLI) | payer OTHER ==
--- NOTE | 2021-01-31 00:15 | ECWPNPC ---
PATIENT NAME: ALEX JI : 1965 GENDER: MALE VISIT DATE: 01/28/2021 DISCHARGE DATE: 01/28/21 1034 VISIT LOCKED DATE TIME: PHYSICIAN: BLANE EUGENE RESOURCE: BLANE EUGENE REASON FOR APPOINTMENT 1. POST BOTOX INJECTIONS FOR HEAD,NECK,SHOULDERS /MIGRAINE HEADACHE PREVENTION HISTORY OF PRESENT ILLNESS DEPRESSION SCREENING: PHQ-2 (2015 EDITION) LITTLE INTEREST OR PLEASURE IN DOING THINGS?NOT AT ALL FEELING DOWN, DEPRESSED, OR HOPELESS?SEVERAL DAYS TOTAL SCORE1 GENERAL: HERE FOR POST BOTOX FOLLOW-UP. REPORTS THAT HEADACHE FREQUENCY AND INTENSITY IS MARKEDLY REDUCED SINCE BOTOX INJECTION A FEW WEEKS AGO. HAS BEEN HAVING CARDIAC ISSUES AND WILL BE SEEN BY [employer]ACE[employer] SYSTEMS ENGINEER NEXT WEEK. WE ARE WAITING FOR MEDICAL CLEARANCE/CARDIOLOGY CLEARANCE TO PURSUE IV SEDATION AND RIGHT TRANSFORAMINAL INJECTION. THIS IS CHRONIC PAIN RELATED TO A WORK INJURY. CONTINUES TO WEAN DOWN AND OFF OF OXYCODONE AND IS USING MEDICAL MARIJUANA. HE HAS BEEN HAVING SOME ADVERSE REACTIONS TO MEDICAL MARIJUANA PRESCRIBED. -. FALL RISK SCREENING: SCREENING HAD BEVERLYPLY FALL DID GO THE ER AND HURT HIM SELF. PAIN SCREENING: PATIENT HAS A COMPLAINT OF ACUTE OR CHRONIC PAIN :YES LOCATION OF PAIN:HEAD INTENSITY OF PAIN (SCALE OF 1 TO 10):7 WHAT DOES YOUR PAIN FEEL LIKE:TENDER, THROBBING, SORE DURATION:CONTINOUS, CONSTANT, ALL DAY PAIN IS INCREASED BY:ACTIVITIES PAIN IS DECREASED BY:USE OF PAIN MEDICATIONS NURSING NOTE: -. PAIN CENTER INTAKE QUESTIONS: DO YOU HAVE A HISTORY OF MRSA? :NO DO YOU TAKE A BLOOD THINNERS? :NO DO YOU HAVE ANY BLEEDING DISORDERS? :NO ANY NEW NUMBNESS OR WEAKNESS IN YOUR LEGS OR ARMS? :NO ANY PACEMAKER,DEFIBRILLATOR, OR DORSAL COLUMN STIMULATOR? :NO DO YOU HAVE ANY RASHES OR OPEN SORES? :NO ARE YOU ALLERGIC TO IV DYE? :NO ARE YOU DIABETIC? :YES ANY NEW PROBLEMS WITH YOUR MEDICATIONS? :NO HAVE YOU RECEIVED A VACCINE IN THE PAST 30 DAYS? :NO DO YOU PLAN TO RECEIVE A VACCINE IN THE NEXT 21 DAYS? :NO DO YOU NEED ANY PRESCRIPTION? :NO DO YOU TAKE ANY IMMUNOSUPPRESSIVE MEDICATIONS? :NO IS THERE A CHANCE YOU COULD BE ? :NO ARE YOU BREAST FEEDING? :NO CURRENT MEDICATIONS TAKING PINDOLOL 5 MG TABLET 1 TABLET ORALLY QID TAKING POTASSIUM CHLORIDE 10 MEQ (PRT) TABLET EXTENDED RELEASE 1 TABLET ORALLY TWICE DAILY TAKING METFORMIN HCL ER 750 MG TABLET EXTENDED RELEASE 24 HOUR ORALLY TWICE A DAY TAKING ATENOLOL 50 MG TABLET 1 TABLET ORALLY BID TAKING LEVOTHYROXINE SODIUM 50 MCG TABLET 1 TABLET ORALLY ONCE A DAY TAKING TRIAMTERENE-HCTZ 37.5-25 MG TABLET 1 TABLET IN THE MORNING ORALLY ONCE A DAY TAKING FLONASE ALLERGY RELIEF 50 MCG/ACT SUSPENSION 1 SPRAY IN EACH NOSTRIL NASALLY ONCE A DAY NEEDED TAKING MAY HAVE - - MEDICAL MARIJUANA DIRECTED TAKING CYCLOBENZAPRINE HCL 10 MG TABLET 1 TABLET NEEDED ORALLY Q6-8H PRN FOR SEVERE MUSCLE SPASM PAIN #45 TAB. SHOULD LAST 30 DAYS TAKING LEVEMIR 100 UNIT/ML SOLUTION 16 UNITS SUBCUTANEOUS BID TAKING KETOROLAC TROMETHAMINE 10 MG TABLET 1 TABLET WITH FOOD OR MILK NEEDED ORALLY Q6H PRN FOR SEVERE PAIN MDD4 TAKING COLACE 100 MG CAPSULE 1 CAPSULE NEEDED ORALLY ONCE A DAY TAKING BYDUREON 2 MG PEN-INJECTOR DIRECTED SUBCUTANEOUS WEEKLY TAKING BOTOX 100 UNIT SOLUTION RECONSTITUTED FOR IM INJECTION AT THE HEAD, NECK AND SHOULDER MUSCLES ICD G43.709 BOTOX APPT AT 2:30PM ON 10/25/2020. TAKING AMITRIPTYLINE HCL 50 MG TABLET 3 ORALLY FOR PAIN ONCE A DAY TAKING TOPAMAX 100 MG TABLET 1 TABLET ORALLY FOR PAIN TWICE A DAY TAKING PERCOCET 5-325 MG TABLET 1 ORALLY 1 TAB DAILY IF NEEDED FOR SEVERE PAIN EPISODES MDD1 NOT-TAKING BOTOX 100 UNIT SOLUTION RECONSTITUTED FOR IM INJECTION AT THE HEAD, NECK AND SHOULDER MUSCLES ICD G43.709 BOTOX ON 12/29/20 AT 10:40 NOT-TAKING NARCAN 4 MG/0.1ML LIQUID DIRECTED NASALLY FOR OPIOID OVERDOSE, NOTES: NEVER NOT-TAKING FENTANYL 12 MCG/HR PATCH 72 HOUR 1 PATCH TO SKIN TRANSDERMAL Q72 HR=MDD, NOTES: NOT TAKING MEDICATION LIST REVIEWED AND RECONCILED WITH THE PATIENT PAST MEDICAL HISTORY DM, HTN, CHRONIC PAIN , THYROID DISEASE, GERD, MIGRANES LEFT KNEE PAIN RIGHT SHOULDER LABRIUM TEAR FUSION AT 3-4 C BACK AND NECK SPASMS CHRONIC PAIN ALLERGIES AZITHROMYCIN: LIP SWELLING - ALLERGY SUMATRIPTAN: FACIAL SWELLING - ALLERGY PROPOXYPHENE: PRICKLY FEELING, RASH, SOB - ALLERGY SURGICAL HISTORY FUSION C3-C4 1994 3 SURGURIES TO LEFT KNEE 1993 LEFT KNEE ARTHROSCOPY 05/2020 SOCIAL HISTORY GENERAL: TOBACCO USE ARE YOU A:NONSMOKER LATEX QUESTIONNAIRE LATEX ALLERGY : HAVE YOU EVER DEVELOPED ANY TYPE OF REACTION AFTER HANDLING LATEX PRODUCTS SUCH RUBBER GLOVES, CONDOMS, DIAPHRAGMS, BALLOONS, SOCKS, OR UNDERWEAR?NO LATEX ALLERGY : HAVE YOU EVER DEVELOPED ANY TYPE OF REACTION DURING OR AFTER DENTAL APPOINTMENT, VAGINAL/RECTAL EXAMINATION, SURGICAL PROCEDURE, OR ANY OTHER EXPOSURE?NO LATEX RISK : HAVE YOU EVER HAD ANY DIFFICULTY BREATHING OR HIVES AFTER EATING OR HANDLING ANY FRUITS, OR VEGETABLES; SUCH KIWI, BANANAS, STONE FRUITS, OR CHESTNUTSNO LATEX RISK : DO YOU HAVE A PREVIOUS PERSONAL HISTORY OF MORE THAN NINE SURGERIES, SPINA BIFIDA, OR REPEATED CATHERIZATIONS? NO LATEX RISK : ARE YOU FREQUENTLY EXPOSED TO LATEX PRODUCTS IN YOUR OCCUPATION?NO DATE ASKED : 01/28/2021 ALCOHOL USE: NO. LUNG CANCER SCREENING SMOKING STATUS:NON SMOKER ALCOHOL SCREENING DID YOU HAVE A DRINK CONTAINING ALCOHOL IN THE PAST YEAR?NO POINTS0 INTERPRETATIONNEGATIVE RECREATIONAL DRUG USE DRUG USE?NO HAS PRESCRIPTION FOR MEDICAL MARIJUANA. CAFFEINE CAFFEINE USE?NO HIV / HEP-C SCREENING HIV TEST OFFERED TO PATIENT:YES DATE OFFERED:01/17/2018 TEST ACCEPTED:NO HEP-C TEST OFFERED TO PATIENT:YES DATE OFFERED:01/17/2018 REASON:PATIENT DECLINED TEST ACCEPTED:NO REASON:PATIENT DECLINED BROCHURE PROVIDED TO PATIENTNO [employer] [id number] RESTORATION LANGUAGE LANGUAGES SPOKEN:MAURITANIAN LEARNING BARRIERS / SPECIAL NEEDS CHANGE FROM LAST VISIT?NO BARRIERS TO LEARNING?NO HEARING IMPAIRED?NO VISION IMPAIRED?YES :CORRECTIVE LENSES COGNITIVELY IMPAIRED?NO READINESS TO LEARN?YES LEARNING PREFERENCES?YES :BOOKLETS, HANDOUTS LEARNING CAPABILITIES PRESENT?YES EMOTIONAL BARRIERS?NO SPECIAL DEVICES?YES :CANE NEEDED SECTION MAINTAINER NEEDED?NO HOSPITALIZATION/MAJOR DIAGNOSTIC PROCEDURE SURGERIES HYPERTENSION HEAD INJURY 03/1986 FALL/ PAIN CONTROL 08/2020 REVIEW OF SYSTEMS CONSTITUTIONAL: ANY RECENT FEVER NO . CHILLS NO . WEIGHT CHANGE OF UNKNOWN REASONS NO . GASTROENTEROLOGY: NEW UNEXPLAINABLE CHANGES IN BOWEL CONTROL NO . CONSTIPATION NO . GENITOURINARY: ANY NEW CHANGE IN BLADDER CONTROL? NO . NEUROLOGY: NEW ONSET DIZZINESS OR NEUROLOGICAL CHANGES NOT MENTIONED NO . NEW NUMBNESS OR PAIN PATTERNS NOT MENTIONED AND PERTINENT TO TODAY'S VISIT NO . CARDIOLOGY: NEW CHEST PRESSURE NO . PATIENT DENIES NO . RESPIRATORY: UNEXPLAINABLE COUGH NO . NEW SHORTNESS OF BREATH NO . VITAL SIGNS WT 338.4 LBS, HT 78 IN, BMI 39.10 INDEX, BP 177/116 MM HG, REPEAT BP 158/87 MM HG, HR 990 /MIN, RR 18 /MIN, TEMP 98.2 F, OXYGEN SAT % 97%, NA INITIALS AW 1004, REVIEWED BY: DARNELL VALDEZ. EXAMINATION GENERAL EXAMINATION: GENERALWALKS WITH ANTALGIC GAIT AND ASSIST OF CANE. PSYCHAPPROPRIATE MOOD AND AFFECT . LUNGS:CLEAR TO AUSCULTATION BILATERALLY, NO WHEEZES, RHONCHI, RALES. HEART:NO MURMURS, REGULAR RATE AND RHYTHM. MUSCULOSKELETAL:WEAKNESS NOTED OVER RIGHT LEG COMPARED TO LEFT. PATIENT HAS DIFFICULTY RAISING TO A STANDING POSITION . LUMBAR: PALPATION: + FOR PAIN OVER L/S SPINE. + FOR PAIN OVER L/S PARSPINALS. ASSESSMENTS OTHER CHRONIC PAIN - G89.29 (PRIMARY) TREATMENT OTHER CHRONIC PAIN PAIN PROCEDURE LOGDATE OF PROCEDURE1PROCEDURE:BOTOX INJECTIONS TO NECK,SHOULDERS, HEADAMOUNT OF PRE SEDATEVALIUM 10MG, OXYCODONE 10MGRESULT:REDUCED HEADACE FREQUENCY AND INTENSITY OF PAIN PROCEDURES PN WORKMANS' COMP OPINION IN YOUR OPINION, WAS THE INCIDENT THAT THE PATIENT DESCRIBED THE COMPETENT MEDICAL CAUSE OF THIS INJURY/ILLNESS? YES ARE THE PATIENT'S COMPLAINTS CONSISTENT WITH HIS/HER HISTORY OF THE INJURY/ILLNESS? YES IS THE PATIENT'S HISTORY OF THE INJURY/ILLNESS CONSISTENT WITH YOUR OBJECTIVE FINDING? YES WHAT IS THE PERCENTAGE OF TEMPORARY IMPAIRMENT? MARKED = 75% IS THE PATIENT WORKING? NO DOCTOR ON SITE: JAVON VALDEZ MD PROCEDURE CODES FA211 ESTABILISHED PATIENT [facility] CHARGE DISPOSITION & COMMUNICATION FOLLOW UP HE WILL CONTACT US FOR F/U (REASON: MED MGMNT) ELECTRONICALLY SIGNED BY MEKA BAPTISTE ON 01/30/2021 AT 08:19 PM EDT DISCLAIMER : THIS IS A VISIT SUMMARY EXTRACTED FROM THE [employer] CHART. IT IS NOT A COPY OF THE [employer] PROGRESS NOTE. NAHEED
== END ==
LOC: M PAIN 09:45
PROVIDERS: ATTEND Nurse Practitioner Family
DX: G89.29 Other chronic pain (principal); E11.9 Type 2 diabetes mellitus without complications; I10 Essential (primary) hypertension; K21.9 Gastro-esophageal reflux disease without esophagitis; G43.909 Migraine, unspecified, not intractable, without status migrainosus; E07.9 Disorder of thyroid, unspecified; Z79.84 Long term (current) use of oral hypoglycemic drugs; Z79.899 Other long term (current) drug therapy; Z88.1 Allergy status to other antibiotic agents; Z88.8 Allergy status to other drugs, medicaments and biological substances

== ENCOUNTER → 2021-02-17 | Outpatient (CLI) | payer OTHER | LOC: M LABSMTC 12:00 | PROVIDERS: ATTEND Anesthesiology | DX: Z01.818 Encounter for other preprocedural examination (principal); Z20.822 Contact with and (suspected) exposure to COVID-19 ==

== ENCOUNTER → 2021-02-22 | Outpatient (CLI) | payer OTHER ==
[~2021-02-22] MED LIST changes: +PROHANCE 279.3MG/ML 15ML VIAL As Ordered ONE; +PROHANCE 279.3MG/ML 5ML VIAL As Ordered ONE; +propofoL 200 MG/20 ML VIAL ONE
[2021-02-22 14:15] VITALS: BP 133/96
--- NOTE | 2021-02-22 14:40 | REPVR ---
PROCEDURE INFORMATION: Exam: MR Cervical Spine Without Contrast Exam date and time: 02/22/2021 11:46 AM Age: 55 years old Clinical indication: Pain; Cervicalgia; Prior surgery; Surgery date: 6+ months; Surgery type: Fusion; Additional info: M96.1-cervical postlaminectomy syndrome TECHNIQUE: Imaging protocol: Multiplanar magnetic resonance images of the cervical spine without contrast. COMPARISON: XA FLUORO GUIDE SPINE INJECTION 12/13/2020 1:19 PM FINDINGS: Limitations: The study is severely limited due to patient motion artifact. Vertebrae: There is straightening of the normal cervical lordosis. Postoperative fusion of the C3 and C4 vertebral bodies are noted. Spinal cord: Normal signal. No cord compression. Discs/Spinal canal/Neural foramina: Moderate degenerative changes of the cervical spine are present. There is no severe spinal canal stenosis. Soft tissues: Unremarkable IMPRESSION: 1. Severely limited exam due to patient motion artifact. 2. No definite acute abnormality of the cervical spine Electronically signed by: Mike Flores On 02/22/2021 14:40:20 PM
== END ==
LOC: M SDC 11:42
PROVIDERS: ATTEND Anesthesiology
DX: M96.1 Postlaminectomy syndrome, not elsewhere classified (principal)
CPT/HCPCS: 72141; A9576

== ENCOUNTER → 2021-02-28 | Outpatient (CLI) | payer OTHER ==
[~2021-02-28] MED LIST changes: -PROHANCE 279.3MG/ML 15ML VIAL As Ordered ONE; -PROHANCE 279.3MG/ML 5ML VIAL As Ordered ONE; -propofoL 200 MG/20 ML VIAL ONE
--- NOTE | 2021-03-03 23:59 | ECWPNPC ---
PATIENT NAME: ALEX JI : 1965 GENDER: MALE VISIT DATE: 02/28/2021 DISCHARGE DATE: 02/28/21 1106 VISIT LOCKED DATE TIME: PHYSICIAN: BLANE EUGENE RESOURCE: BLANE EUGENE REASON FOR APPOINTMENT 1. W/C MED MANAGEMENT HISTORY OF PRESENT ILLNESS GENERAL: HERE FOR FOLLOW-UP AND MEDICATION MANAGEMENT FOR WORK RELATED INJURY. HAS SLOWLY WEANED OFF AND DISCONTINUED OXYCODONE. RECENT REACTION TO MEDICAL MARIJUANA PER PATIENT. HE WAS SEEN BY CARDIOLOGY AND CLEARED. HE CONTINUES TO USE POWDER FORM OF MEDICAL MARIJUANA. HE MAY CONSIDER SLOWLY INCREASING THIS OVER TIME. CURRENTLY USING TOPAMAX AND AMITRIPTYLINE. OCCASIONALLY USES CYCLOBENZAPRINE FOR SEVERE PAIN EPISODES. DOING FAIRLY WELL ALTHOUGH HE CONTINUES TO COMPLAIN OF INABILITY TO TOLERATE HIS USUAL ACTIVITIES. CHIEF AREA OF PAIN IS LOW BACK. HE WILL BE HAVING LUMBAR INJECTIONS IN THE NEAR FUTURE. RECEIVES BOTOX INJECTIONS EVERY 3 MONTHS FOR HEAD PAIN. -. FALL RISK SCREENING: SCREENING MULTPY FALLS REPORTED IN THE LAST YEAR NO INJURIES, 6 FALLS THIS YEAR, WHEN TO THE ER FOR A COUPLE OF THEM, LEFT KNEE REPLACEMENT ,RIGHT SHOULDER.. PAIN SCREENING: PATIENT HAS A COMPLAINT OF ACUTE OR CHRONIC PAIN :YES LOCATION OF PAIN:LOW BACK INTENSITY OF PAIN (SCALE OF 1 TO 10):7 WHAT DOES YOUR PAIN FEEL LIKE:ACHING, BURNING, TENDER, SORE, SHOOTING DURATION:CONTINOUS, CONSTANT, ALL DAY PAIN IS INCREASED BY:ACTIVITIES PAIN IS DECREASED BY:OTHERS HEAT, COOL BATH NURSING NOTE: -. PAIN CENTER INTAKE QUESTIONS: DO YOU HAVE A HISTORY OF MRSA? :NO DO YOU TAKE A BLOOD THINNERS? :NO DO YOU HAVE ANY BLEEDING DISORDERS? :NO ANY NEW NUMBNESS OR WEAKNESS IN YOUR LEGS OR ARMS? :NO ANY PACEMAKER,DEFIBRILLATOR, OR DORSAL COLUMN STIMULATOR? :NO DO YOU HAVE ANY RASHES OR OPEN SORES? :NO ARE YOU ALLERGIC TO IV DYE? :NO ARE YOU DIABETIC? :YES ANY NEW PROBLEMS WITH YOUR MEDICATIONS? :NO HAVE YOU RECEIVED A VACCINE IN THE PAST 30 DAYS? :NO DO YOU PLAN TO RECEIVE A VACCINE IN THE NEXT 21 DAYS? :NO DO YOU NEED ANY PRESCRIPTION? :NO DO YOU TAKE ANY IMMUNOSUPPRESSIVE MEDICATIONS? :NO IS THERE A CHANCE YOU COULD BE ? :NO ARE YOU BREAST FEEDING? :NO CURRENT MEDICATIONS TAKING PINDOLOL 5 MG TABLET 1 TABLET ORALLY FOUR TIMES A DAY TAKING POTASSIUM CHLORIDE 10 MEQ (PRT) TABLET EXTENDED RELEASE 1 TABLET ORALLY TWICE DAILY TAKING METFORMIN HCL ER 750 MG TABLET EXTENDED RELEASE 24 HOUR ORALLY TWICE A DAY TAKING ATENOLOL 50 MG TABLET 1 TABLET ORALLY BID TAKING LEVOTHYROXINE SODIUM 50 MCG TABLET 1 TABLET ORALLY ONCE A DAY TAKING TRIAMTERENE-HCTZ 37.5-25 MG TABLET 1 TABLET IN THE MORNING ORALLY ONCE A DAY TAKING FLONASE ALLERGY RELIEF 50 MCG/ACT SUSPENSION 1 SPRAY IN EACH NOSTRIL NASALLY ONCE A DAY NEEDED TAKING MAY HAVE - - MEDICAL MARIJUANA DIRECTED TAKING CYCLOBENZAPRINE HCL 10 MG TABLET 1 TABLET NEEDED ORALLY Q6-8H PRN FOR SEVERE MUSCLE SPASM PAIN #45 TAB. SHOULD LAST 30 DAYS TAKING LEVEMIR 100 UNIT/ML SOLUTION 16 UNITS SUBCUTANEOUS BID TAKING KETOROLAC TROMETHAMINE 10 MG TABLET 1 TABLET WITH FOOD OR MILK NEEDED ORALLY Q6H PRN FOR SEVERE PAIN MDD4 TAKING COLACE 100 MG CAPSULE 1 CAPSULE NEEDED ORALLY ONCE A DAY TAKING BYDUREON 2 MG PEN-INJECTOR DIRECTED SUBCUTANEOUS WEEKLY TAKING BOTOX 100 UNIT SOLUTION RECONSTITUTED FOR IM INJECTION AT THE HEAD, NECK AND SHOULDER MUSCLES ICD G43.709 BOTOX APPT AT 2:30PM ON 10/25/2020. TAKING TOPAMAX 100 MG TABLET 1 TABLET ORALLY FOR PAIN TWICE A DAY TAKING AMITRIPTYLINE HCL 150 MG TABLET 3 TAB ORALLY ONCE A DAY TAKING PERCOCET 5-325 MG TABLET 1 ORALLY EVERY OTHER DAY X30 DAYS THEN STOP =MDD NOT-TAKING BOTOX 100 UNIT SOLUTION RECONSTITUTED FOR IM INJECTION AT THE HEAD, NECK AND SHOULDER MUSCLES ICD G43.709 BOTOX ON 12/29/20 AT 10:40 NOT-TAKING NARCAN 4 MG/0.1ML LIQUID DIRECTED NASALLY FOR OPIOID OVERDOSE, NOTES: NEVER NOT-TAKING FENTANYL 12 MCG/HR PATCH 72 HOUR 1 PATCH TO SKIN TRANSDERMAL Q72 HR=MDD, NOTES: NOT TAKING MEDICATION LIST REVIEWED AND RECONCILED WITH THE PATIENT PAST MEDICAL HISTORY DM, HTN, CHRONIC PAIN , THYROID DISEASE, GERD, MIGRANES LEFT KNEE PAIN RIGHT SHOULDER LABRIUM TEAR FUSION AT 3-4 C BACK AND NECK SPASMS CHRONIC PAIN MULTPY FALLS REPORTED IN THE LAST YEAR NO INJURIES, 6 FALLS THIS YEAR, WHEN TO THE ER FOR A COUPLE OF THEM, LEFT KNEE REPLACEMENT ,RIGHT SHOULDER.. ALLERGIES AZITHROMYCIN: LIP SWELLING - ALLERGY SUMATRIPTAN: FACIAL SWELLING - ALLERGY PROPOXYPHENE: PRICKLY FEELING, RASH, SOB - ALLERGY SURGICAL HISTORY FUSION C3-C4 1994 3 SURGURIES TO LEFT KNEE 1993 LEFT KNEE ARTHROSCOPY 05/2020 SOCIAL HISTORY GENERAL: TOBACCO USE ARE YOU A:NONSMOKER LATEX QUESTIONNAIRE LATEX ALLERGY : HAVE YOU EVER DEVELOPED ANY TYPE OF REACTION AFTER HANDLING LATEX PRODUCTS SUCH RUBBER GLOVES, CONDOMS, DIAPHRAGMS, BALLOONS, SOCKS, OR UNDERWEAR?NO LATEX ALLERGY : HAVE YOU EVER DEVELOPED ANY TYPE OF REACTION DURING OR AFTER DENTAL APPOINTMENT, VAGINAL/RECTAL EXAMINATION, SURGICAL PROCEDURE, OR ANY OTHER EXPOSURE?NO LATEX RISK : HAVE YOU EVER HAD ANY DIFFICULTY BREATHING OR HIVES AFTER EATING OR HANDLING ANY FRUITS, OR VEGETABLES; SUCH KIWI, BANANAS, STONE FRUITS, OR CHESTNUTSNO LATEX RISK : DO YOU HAVE A PREVIOUS PERSONAL HISTORY OF MORE THAN NINE SURGERIES, SPINA BIFIDA, OR REPEATED CATHERIZATIONS? NO LATEX RISK : ARE YOU FREQUENTLY EXPOSED TO LATEX PRODUCTS IN YOUR OCCUPATION?NO DATE ASKED : 02/28/2021 ALCOHOL USE: NO. LUNG CANCER SCREENING SMOKING STATUS:NON SMOKER ALCOHOL SCREENING DID YOU HAVE A DRINK CONTAINING ALCOHOL IN THE PAST YEAR?NO POINTS0 INTERPRETATIONNEGATIVE RECREATIONAL DRUG USE DRUG USE?NO HAS PRESCRIPTION FOR MEDICAL MARIJUANA. CAFFEINE CAFFEINE USE?NO HIV / HEP-C SCREENING HIV TEST OFFERED TO PATIENT:YES DATE OFFERED:01/17/2018 TEST ACCEPTED:NO HEP-C TEST OFFERED TO PATIENT:YES DATE OFFERED:01/17/2018 REASON:PATIENT DECLINED TEST ACCEPTED:NO REASON:PATIENT DECLINED BROCHURE PROVIDED TO PATIENTNO CATHOLIC [id number] GNOSTICIST LANGUAGE LANGUAGES SPOKEN:MAORI LEARNING BARRIERS / SPECIAL NEEDS CHANGE FROM LAST VISIT?NO BARRIERS TO LEARNING?NO HEARING IMPAIRED?NO VISION IMPAIRED?YES :CORRECTIVE LENSES COGNITIVELY IMPAIRED?NO READINESS TO LEARN?YES LEARNING PREFERENCES?YES :BOOKLETS, HANDOUTS LEARNING CAPABILITIES PRESENT?YES EMOTIONAL BARRIERS?NO SPECIAL DEVICES?YES :CANE NEEDED PUBLIC HOUSING INTERVIEWER NEEDED?NO HOSPITALIZATION/MAJOR DIAGNOSTIC PROCEDURE SURGERIES HYPERTENSION HEAD INJURY 03/1986 FALL/ PAIN CONTROL 08/2020 BAD REACTION TO MEDICAL MARJUINE 01/2021 REVIEW OF SYSTEMS CONSTITUTIONAL: ANY RECENT FEVER NO . CHILLS NO . WEIGHT CHANGE OF UNKNOWN REASONS NO . GASTROENTEROLOGY: NEW UNEXPLAINABLE CHANGES IN BOWEL CONTROL NO . CONSTIPATION NO . GENITOURINARY: ANY NEW CHANGE IN BLADDER CONTROL? NO . NEUROLOGY: NEW ONSET DIZZINESS OR NEUROLOGICAL CHANGES NOT MENTIONED NO . NEW NUMBNESS OR PAIN PATTERNS NOT MENTIONED AND PERTINENT TO TODAY'S VISIT NO . CARDIOLOGY: NEW CHEST PRESSURE NO . PATIENT DENIES NO . RESPIRATORY: UNEXPLAINABLE COUGH NO . NEW SHORTNESS OF BREATH NO . VITAL SIGNS WT 337.2 LBS, HT 78 IN, BMI 38.96 INDEX, BP 129/97 MM HG, HR 95 /MIN, RR 20 /MIN, TEMP 97.0 F, OXYGEN SAT % 96%, BLOOD GLUCOSE LEVEL 81, SAFE IN ENV? (Y/N) YES, NA INITIALS OK 10:38T.UNIQUE VALDEZ. EXAMINATION GENERAL EXAMINATION: GENERALAWAKE,ALERT ,PLEASANT . PSYCHAFFECT NORMAL . LUNGS:LUNG OWENS ARE CLEAR TO AUSCULTATION BILATERALLY. GOOD MOVEMENT OF AIR . HEART:S1, S2 IN A REGULAR RATE AND RHYTHM. NO SIGNIFICANT MURMURS, RUBS OR GALLOPS NOTED . ASSESSMENTS INTERVERTEBRAL DISC DISORDERS WITH RADICULOPATHY, LUMBOSACRAL REGION - M51.17 (PRIMARY) TREATMENT INTERVERTEBRAL DISC DISORDERS WITH RADICULOPATHY, LUMBOSACRAL REGION NOTES: CONTINUE HOME EXCERSISE AND STRETCHING. PROCEDURES PN WORKMANS' COMP OPINION IN YOUR OPINION, WAS THE INCIDENT THAT THE PATIENT DESCRIBED THE COMPETENT MEDICAL CAUSE OF THIS INJURY/ILLNESS? YES ARE THE PATIENT'S COMPLAINTS CONSISTENT WITH HIS/HER HISTORY OF THE INJURY/ILLNESS? YES IS THE PATIENT'S HISTORY OF THE INJURY/ILLNESS CONSISTENT WITH YOUR OBJECTIVE FINDING? YES WHAT IS THE PERCENTAGE OF TEMPORARY IMPAIRMENT? MARKED = 75% IS THE PATIENT WORKING? NO DOCTOR ON SITE: JAVON VALDEZ MD PROCEDURE CODES FA211 ESTABILISHED PATIENT [facility] CHARGE DISPOSITION & COMMUNICATION FOLLOW UP HAS APPOINTMENT FOR PROCEDURE AND WILL HAVE POST PROCEDURE F/U WITH ME (REASON: LOW BACK PAIN/HEAD PAIN) ELECTRONICALLY SIGNED BY MEKA BAPTISTE ON 03/03/2021 AT 08:59 AM EDT DISCLAIMER : THIS IS A VISIT SUMMARY EXTRACTED FROM THE [employer] CHART. IT IS NOT A COPY OF THE [employer] PROGRESS NOTE. NAHEED
== END ==
LOC: M PAIN 10:30
PROVIDERS: ATTEND Nurse Practitioner Family
DX: M51.17 Intervertebral disc disorders with radiculopathy, lumbosacral region (principal); E11.9 Type 2 diabetes mellitus without complications; E03.9 Hypothyroidism, unspecified; G43.909 Migraine, unspecified, not intractable, without status migrainosus; Z88.1 Allergy status to other antibiotic agents; Z88.8 Allergy status to other drugs, medicaments and biological substances; Z79.4 Long term (current) use of insulin; Z79.891 Long term (current) use of opiate analgesic; Z79.899 Other long term (current) drug therapy

== ENCOUNTER → 2021-03-07 | Outpatient (CLI) | payer OTHER ==
--- NOTE | 2021-03-11 00:54 | ECWPNPC ---
PATIENT NAME: ALEX JI : 1965 GENDER: MALE VISIT DATE: 03/07/2021 DISCHARGE DATE: 03/07/21 145 VISIT LOCKED DATE TIME: PHYSICIAN: JAVON LEONARDO MD RESOURCE: JAVON LEONARDO MD REASON FOR APPOINTMENT 1. PRESEDATE FOR RIGHT TRANSFORAMINAL EPIDURAL STEROID INJECTION L2-3,L5-S1 WITH IV SEDATION HISTORY OF PRESENT ILLNESS GENERAL: 55-YEAR-OLD MALE PATIENT WITH A HISTORY OF CHRONIC LOW BACK AND MAINLY RIGHT LEG PAIN. THE PATIENT DESCRIBES THE PAIN SEVERE, ACHING, BURNING AND SORE WITH A PAIN SCORE RANGING FROM 7-10/10 OVER THE BACK IN BOTH LEGS, SOME DAYS WORSE IN THE LEFT LEG AND SOME DAYS WORSE IN THE RIGHT LEG. HE HAS RECEIVED EPIDURALS IN THE PAST WITH GOOD PAIN RELEIF. HE SUFFERED A WORK RELATED INJURY. HE HAS TRIED MEDICATION MANAGEMENT BUT THE PAIN PERSISTS. FALL RISK SCREENING: SCREENING SEVERAL FALLS WITHOUT NEW INJURY. PAIN SCREENING: PATIENT HAS A COMPLAINT OF ACUTE OR CHRONIC PAIN :YES LOCATION OF PAIN:HEAD, NECK, LEFT SHOULDER, RIGHT SHOULDER, UPPER BACK, LOW BACK, LEG(S) BILATERAL ARMS TO ELBOWS AND BILATERAL LEGS TO TOES INTENSITY OF PAIN (SCALE OF 1 TO 10):7.5 WHAT DOES YOUR PAIN FEEL LIKE:ACHING, BURNING, CONTINOUS, STABBING, TENDER, SORE, SHOOTING DURATION:CONTINOUS PAIN IS INCREASED BY:ACTIVITIES, PROLONGED STANDING PAIN IS DECREASED BY:USE OF PAIN MEDICATIONS, OTHERS HEAT/ICE NURSING NOTE: -. PAIN CENTER INTAKE QUESTIONS: DO YOU HAVE A HISTORY OF MRSA? :NO DO YOU TAKE A BLOOD THINNERS? :NO DO YOU HAVE ANY BLEEDING DISORDERS? :NO ANY NEW NUMBNESS OR WEAKNESS IN YOUR LEGS OR ARMS? :NO ANY PACEMAKER,DEFIBRILLATOR, OR DORSAL COLUMN STIMULATOR? :NO DO YOU HAVE ANY RASHES OR OPEN SORES? :NO ARE YOU ALLERGIC TO IV DYE? :NO ARE YOU DIABETIC? :YES ANY NEW PROBLEMS WITH YOUR MEDICATIONS? :NO HAVE YOU RECEIVED A VACCINE IN THE PAST 30 DAYS? :NO DO YOU PLAN TO RECEIVE A VACCINE IN THE NEXT 21 DAYS? :NO DO YOU NEED ANY PRESCRIPTION? :NO DO YOU TAKE ANY IMMUNOSUPPRESSIVE MEDICATIONS? :NO DO YOU HAVE ANY KIDNEY OR LIVER DISEASE? :NO IS THERE A CHANCE YOU COULD BE ? :NO ARE YOU BREAST FEEDING? :NO CURRENT MEDICATIONS TAKING PINDOLOL 5 MG TABLET 1 TABLET ORALLY FOUR TIMES A DAY TAKING POTASSIUM CHLORIDE 10 MEQ (PRT) TABLET EXTENDED RELEASE 1 TABLET ORALLY TWICE DAILY TAKING METFORMIN HCL ER 750 MG TABLET EXTENDED RELEASE 24 HOUR ORALLY TWICE A DAY TAKING ATENOLOL 50 MG TABLET 1 TABLET ORALLY BID TAKING LEVOTHYROXINE SODIUM 50 MCG TABLET 1 TABLET ORALLY ONCE A DAY TAKING TRIAMTERENE-HCTZ 37.5-25 MG TABLET 1 TABLET IN THE MORNING ORALLY ONCE A DAY TAKING FLONASE ALLERGY RELIEF 50 MCG/ACT SUSPENSION 1 SPRAY IN EACH NOSTRIL NASALLY ONCE A DAY NEEDED TAKING MAY HAVE - - MEDICAL MARIJUANA DIRECTED TAKING CYCLOBENZAPRINE HCL 10 MG TABLET 1 TABLET NEEDED ORALLY Q6-8H PRN FOR SEVERE MUSCLE SPASM PAIN #45 TAB. SHOULD LAST 30 DAYS TAKING LEVEMIR 100 UNIT/ML SOLUTION 16 UNITS SUBCUTANEOUS BID TAKING COLACE 100 MG CAPSULE 1 CAPSULE NEEDED ORALLY ONCE A DAY TAKING BYDUREON 2 MG PEN-INJECTOR DIRECTED SUBCUTANEOUS WEEKLY TAKING BOTOX 100 UNIT SOLUTION RECONSTITUTED FOR IM INJECTION AT THE HEAD, NECK AND SHOULDER MUSCLES ICD G43.709 BOTOX APPT AT 2:30PM ON 10/25/2020. TAKING TOPAMAX 100 MG TABLET 1 TABLET ORALLY FOR PAIN TWICE A DAY TAKING AMITRIPTYLINE HCL 50 MG TABLET 3 TAB ORALLY ONCE A DAY AT HS FOR TOTAL OF 150MG TAKING PERCOCET 5-325 MG TABLET 1 ORALLY EVERY OTHER DAY X30 DAYS THEN STOP =MDD TAKING KETOROLAC TROMETHAMINE 10 MG TABLET 1 TABLET WITH FOOD OR MILK NEEDED ORALLY Q6H PRN FOR SEVERE PAIN MDD4 NOT-TAKING BOTOX 100 UNIT SOLUTION RECONSTITUTED FOR IM INJECTION AT THE HEAD, NECK AND SHOULDER MUSCLES ICD G43.709 BOTOX ON 12/29/20 AT 10:40 NOT-TAKING NARCAN 4 MG/0.1ML LIQUID DIRECTED NASALLY FOR OPIOID OVERDOSE, NOTES: NEVER NOT-TAKING FENTANYL 12 MCG/HR PATCH 72 HOUR 1 PATCH TO SKIN TRANSDERMAL Q72 HR=MDD, NOTES: NOT TAKING MEDICATION LIST REVIEWED AND RECONCILED WITH THE PATIENT PAST MEDICAL HISTORY DM, HTN, CHRONIC PAIN , THYROID DISEASE, GERD, MIGRANES LEFT KNEE PAIN RIGHT SHOULDER LABRIUM TEAR FUSION AT 3-4 C BACK AND NECK SPASMS CHRONIC PAIN MULTPY FALLS REPORTED IN THE LAST YEAR NO INJURIES, 6 FALLS THIS YEAR, WHEN TO THE ER FOR A COUPLE OF THEM, LEFT KNEE REPLACEMENT ,RIGHT SHOULDER.. ALLERGIES AZITHROMYCIN: LIP SWELLING - ALLERGY SUMATRIPTAN: FACIAL SWELLING - ALLERGY PROPOXYPHENE: PRICKLY FEELING, RASH, SOB - ALLERGY SURGICAL HISTORY FUSION C3-C4 1994 3 SURGURIES TO LEFT KNEE 1993 LEFT KNEE ARTHROSCOPY 05/2020 FAMILY HISTORY FATHER: 51 YRS, DIAGNOSED WITH DIABETES MOTHER: 50 YRS, OTHER MALIGNANT NEOPLASM OF UNSPECIFIED SITE 3 BROTHER(S) , 2 SISTER(S) . 1 SON(S) - HEALTHY. ON BROTHER R\/T PANCREATIC CANCER, ONE SISTER WITH MS \NBROTHER - COMPLICATIONS FROM AGENT ORANGE\NBROTHER - BLOOD CLOT. SOCIAL HISTORY GENERAL: TOBACCO USE ARE YOU A:NONSMOKER LATEX QUESTIONNAIRE LATEX ALLERGY : HAVE YOU EVER DEVELOPED ANY TYPE OF REACTION AFTER HANDLING LATEX PRODUCTS SUCH RUBBER GLOVES, CONDOMS, DIAPHRAGMS, BALLOONS, SOCKS, OR UNDERWEAR?NO LATEX ALLERGY : HAVE YOU EVER DEVELOPED ANY TYPE OF REACTION DURING OR AFTER DENTAL APPOINTMENT, VAGINAL/RECTAL EXAMINATION, SURGICAL PROCEDURE, OR ANY OTHER EXPOSURE?NO LATEX RISK : HAVE YOU EVER HAD ANY DIFFICULTY BREATHING OR HIVES AFTER EATING OR HANDLING ANY FRUITS, OR VEGETABLES; SUCH KIWI, BANANAS, STONE FRUITS, OR CHESTNUTSNO LATEX RISK : DO YOU HAVE A PREVIOUS PERSONAL HISTORY OF MORE THAN NINE SURGERIES, SPINA BIFIDA, OR REPEATED CATHERIZATIONS? NO LATEX RISK : ARE YOU FREQUENTLY EXPOSED TO LATEX PRODUCTS IN YOUR OCCUPATION?NO DATE ASKED : 03/07/2021 ALCOHOL USE: NO. LUNG CANCER SCREENING SMOKING STATUS:NON SMOKER ALCOHOL SCREENING DID YOU HAVE A DRINK CONTAINING ALCOHOL IN THE PAST YEAR?NO POINTS0 INTERPRETATIONNEGATIVE RECREATIONAL DRUG USE DRUG USE?NO HAS PRESCRIPTION FOR MEDICAL MARIJUANA. CAFFEINE CAFFEINE USE?NO HIV / HEP-C SCREENING HIV TEST OFFERED TO PATIENT:YES DATE OFFERED:01/17/2018 TEST ACCEPTED:NO HEP-C TEST OFFERED TO PATIENT:YES DATE OFFERED:01/17/2018 REASON:PATIENT DECLINED TEST ACCEPTED:NO REASON:PATIENT DECLINED BROCHURE PROVIDED TO PATIENTNO VOODOO [id number] CHEONDOISM LANGUAGE LANGUAGES SPOKEN:THAI LEARNING BARRIERS / SPECIAL NEEDS CHANGE FROM LAST VISIT?NO BARRIERS TO LEARNING?NO HEARING IMPAIRED?NO VISION IMPAIRED?YES :CORRECTIVE LENSES COGNITIVELY IMPAIRED?NO READINESS TO LEARN?YES LEARNING PREFERENCES?YES :BOOKLETS, HANDOUTS LEARNING CAPABILITIES PRESENT?YES EMOTIONAL BARRIERS?NO SPECIAL DEVICES?YES :CANE NEEDED LOGGING ASSISTANT NEEDED?NO HOSPITALIZATION/MAJOR DIAGNOSTIC PROCEDURE SURGERIES HYPERTENSION HEAD INJURY 03/1986 FALL/ PAIN CONTROL 08/2020 BAD REACTION TO MEDICAL MARJUANA 01/2021 REVIEW OF SYSTEMS GLAUCOMA: NOTHYROID DISEASE: HYPOTHYROIDISMHYPERTENSION: YESHEART DISEASE: NOLUNG DISEASE: NODIABETES: TYPE II DIABETESGI DISEASE: NO LIVER DISEASE: NO KIDNEY DISEASE: NOSTERIOD USE: NONEUROLOGICAL DISEASE: HISTORY OF SPASMSBACK PROBLEMS: YES PAINEXTREMITIES: YES PAINGENITOURINARY: NOBLEEDING DISORDER: NOASA CLASS: IIAIRWAY CLASS: II. VITAL SIGNS WT 337.2 LBS, HT 78 IN, BMI 38.96 INDEX, BP 139/89 MM HG, HR 87 /MIN, RR 20 /MIN, TEMP 97.9 F, OXYGEN SAT % 94%, SAFE IN ENV? (Y/N) YES, NA INITIALS SC 12:48, REVIEWED BY: LETTY CANNON. EXAMINATION GENERAL: THE PATIENT IS ALERT, ORIENTED TIMES THREE AND COOPERATIVE. LUNGS ARE CLEAR TO AUSCULTATION. HEART SHOWS REGULAR RHYTHM, NO MURMURS AND NO GALLOPS. STRAIGHT LEG RAISE IS POSITIVE FOR RADICULOPATHY ON THE RIGHT AT 30 DEGREES. MRI OF THE LUMBAR SPINE DATED 05/18/2020 SHOWS BULGING DISC AT MULTIPLE LEVELS. ASSESSMENTS INTERVERTEBRAL DISC DISORDERS WITH RADICULOPATHY, LUMBAR REGION - M51.16 (PRIMARY) INTERVERTEBRAL DISC DISORDERS WITH RADICULOPATHY, LUMBOSACRAL REGION - M51.17 TREATMENT INTERVERTEBRAL DISC DISORDERS WITH RADICULOPATHY, LUMBAR REGION CLINICAL NOTES: I DISCUSSED ALTERNATIVES WITH MR. JI. WE AGREE ON DOING A RIGHT L2-L3, L5-S1 TRANSFORAMINAL EPIDURAL STEROID INJECTION WITH IV SEDATION DUE TO ANXIETY AND DISCOMFORT ASSOCIATED WITH THE PROCEDURE. THE PATIENT REPORTS UNDERSTANDING AND AGREES WITH THE PLAN. I, ALFREDO JIMENEZ, DOCUMENTED THE ABOVE INFORMATION ACTING A SCRIBE FOR DR. LEONARDO. I HAVE REVIEWED THE ABOVE DOCUMENT, WRITTEN BY ALFREDO JIMENEZ, VIDEO EDITING INTERNSHIP, AND I VERIFY THAT IT IS ACCURATE. PROCEDURES PN WORKMANS' COMP OPINION IN YOUR OPINION, WAS THE INCIDENT THAT THE PATIENT DESCRIBED THE COMPETENT MEDICAL CAUSE OF THIS INJURY/ILLNESS? YES ARE THE PATIENT'S COMPLAINTS CONSISTENT WITH HIS/HER HISTORY OF THE INJURY/ILLNESS? YES IS THE PATIENT'S HISTORY OF THE INJURY/ILLNESS CONSISTENT WITH YOUR OBJECTIVE FINDING? YES WHAT IS THE PERCENTAGE OF TEMPORARY IMPAIRMENT? TOTAL = 100% IS THE PATIENT WORKING? NO DOCTOR ON SITE: JAVON VALDEZ MD PROCEDURE CODES FA211 ESTABILISHED PATIENT [facility] FACILITY CHARGE [id number] OFFICE/OUTPATIENT VISIT EST DISPOSITION & COMMUNICATION FOLLOW UP OKAY TO BOOK (REASON: RIGHT TRANSFORAMINAL EPIDURAL STEROID INJECTION L2-L3, L5-S1) ELECTRONICALLY SIGNED BY JAVON LEONARDO MD, MD ON 03/10/2021 AT 04:27 PM EDT DISCLAIMER : THIS IS A VISIT SUMMARY EXTRACTED FROM THE [facility] CHART. IT IS NOT A COPY OF THE [facility] PROGRESS NOTE. NAHEED
== END ==
LOC: M PAIN 12:40
PROVIDERS: ATTEND Anesthesiology
DX: M51.16 Intervertebral disc disorders with radiculopathy, lumbar region (principal); M51.17 Intervertebral disc disorders with radiculopathy, lumbosacral region; E11.9 Type 2 diabetes mellitus without complications; I10 Essential (primary) hypertension; E07.9 Disorder of thyroid, unspecified; K21.9 Gastro-esophageal reflux disease without esophagitis; G43.909 Migraine, unspecified, not intractable, without status migrainosus; G89.29 Other chronic pain; R29.6 Repeated falls; Z98.1 Arthrodesis status; Z79.891 Long term (current) use of opiate analgesic; Z79.84 Long term (current) use of oral hypoglycemic drugs; Z79.899 Other long term (current) drug therapy; Z88.1 Allergy status to other antibiotic agents; Z88.8 Allergy status to other drugs, medicaments and biological substances

== ENCOUNTER → 2021-03-08 | Outpatient (CLI) | payer OTHER | LOC: M LABSMTC 11:18 | PROVIDERS: ATTEND Anesthesiology | DX: Z20.822 Contact with and (suspected) exposure to COVID-19 (principal) ==

== ENCOUNTER → 2021-03-10 | Outpatient (CLI) | payer OTHER ==
[~2021-03-10] MED LIST changes: +BUPIVACAINE HCL 0.25% 30ML VIAL As Ordered ONE; +ISOVUE-M 300 61% 15ML VIAL As Ordered ONE; +LIDOCAINE 1% SDV 30ML VIAL As Ordered ONE; +MIDAZOLAM INJ 2MG/2ML VIAL (J2250 PER 1MG) As Ordered ONE; +ONDANSETRON 4MG/2ML VIAL As Ordered ONE; +dexameTHASONE 10MG/1ML VIAL PRES.FREE (J1100 PER 1MG) As Ordered ONE; +diphenhydrAMINE 50MG/ML VIAL (J1200) As Ordered ONE; +fentaNYL 100 MCG/2 ML INJECTION (J3010) As Ordered ONE
--- NOTE | 2021-03-10 14:21 | REP ---
INDICATION: RIHT TRANSFORMINAL. COMPARISON: None. TECHNIQUE: Ninety-six views. 75.6 seconds of fluoroscopy time is reported. FINDINGS: A sequence of 96 last image hold fluoroscopically obtained spot radiograph(s) of the lumbar spine document(s) needle position(s) and contrast injection associated with injection procedure. IMPRESSION: Procedural imaging. <Electronically signed by Bradley Rock > 03/10/21 2160
--- NOTE | 2021-03-10 23:26 | ECWPNPC ---
PATIENT NAME: ALEX JI : 1965 GENDER: MALE VISIT DATE: 03/10/2021 DISCHARGE DATE: 03/10/21 143 VISIT LOCKED DATE TIME: PHYSICIAN: JAVON LEONARDO MD RESOURCE: JAVON LEONARDO MD REASON FOR APPOINTMENT 1. RIGHT TRANSFORAMINAL EPIDURAL STEROID INJECTION L2-3,L5-S1 WITH IV SEDATION - OK PER MCKAY HISTORY OF PRESENT ILLNESS GENERAL: - -. FALL RISK SCREENING: SCREENING : NO FALLS REPORTED IN THE LAST YEAR , :. PAIN SCREENING: PATIENT HAS A COMPLAINT OF ACUTE OR CHRONIC PAIN :YES INTENSITY OF PAIN (SCALE OF 1 TO 10):8 WHAT DOES YOUR PAIN FEEL LIKE:CONTINOUS, BURNING, TENDER, SORE NURSING NOTE: - -. PAIN CENTER INTAKE QUESTIONS: DO YOU HAVE A HISTORY OF MRSA? :NO DO YOU TAKE A BLOOD THINNERS? :NO DO YOU HAVE ANY BLEEDING DISORDERS? :NO ANY NEW NUMBNESS OR WEAKNESS IN YOUR LEGS OR ARMS? :NO ANY PACEMAKER,DEFIBRILLATOR, OR DORSAL COLUMN STIMULATOR? :NO DO YOU HAVE ANY RASHES OR OPEN SORES? :NO ARE YOU ALLERGIC TO IV DYE? :NO ARE YOU DIABETIC? :YES ANY NEW PROBLEMS WITH YOUR MEDICATIONS? :NO HAVE YOU RECEIVED A VACCINE IN THE PAST 30 DAYS? :NO DO YOU PLAN TO RECEIVE A VACCINE IN THE NEXT 21 DAYS? :NO DO YOU TAKE ANY IMMUNOSUPPRESSIVE MEDICATIONS? :NO ANY HISTORY OF SEIZURES? :NO ANY HISTORY OF CARDIAC ISSUES OR EVENTS? :NO DO YOU HAVE ANY KIDNEY OR LIVER DISEASE? :NO DO YOU HAVE SLEEP APNEA? :NO ANY RECENT HEAD INJURY? :NO DO YOU HAVE ANY NEW INFECTIONS? :NO IS THERE A CHANCE YOU COULD BE ? :NO ARE YOU BREAST FEEDING? :NO WHEN DID YOU LAST EAT? : -LAST NIGHT WHEN DID YOU LAST DRINK? : -0600 THIS MORNING WHAT DID YOU LAST DRINK? : -WATER NAME OF PERSON DRIVING YOU HOME? : -BRAD DO YOU HAVE ANY OTHER QUESTIONS OR CONCERNS? : - CURRENT MEDICATIONS TAKING PINDOLOL 5 MG TABLET 1 TABLET ORALLY FOUR TIMES A DAY TAKING POTASSIUM CHLORIDE 10 MEQ (PRT) TABLET EXTENDED RELEASE 1 TABLET ORALLY TWICE DAILY TAKING METFORMIN HCL ER 750 MG TABLET EXTENDED RELEASE 24 HOUR ORALLY TWICE A DAY, NOTES: NOT TODAY TAKING ATENOLOL 50 MG TABLET 1 TABLET ORALLY BID, NOTES: 03-08-2021 TAKING LEVOTHYROXINE SODIUM 50 MCG TABLET 1 TABLET ORALLY ONCE A DAY TAKING TRIAMTERENE-HCTZ 37.5-25 MG TABLET 1 TABLET IN THE MORNING ORALLY ONCE A DAY TAKING FLONASE ALLERGY RELIEF 50 MCG/ACT SUSPENSION 1 SPRAY IN EACH NOSTRIL NASALLY ONCE A DAY NEEDED TAKING MAY HAVE - - MEDICAL MARIJUANA DIRECTED TAKING CYCLOBENZAPRINE HCL 10 MG TABLET 1 TABLET NEEDED ORALLY Q6-8H PRN FOR SEVERE MUSCLE SPASM PAIN #45 TAB. SHOULD LAST 30 DAYS TAKING LEVEMIR 100 UNIT/ML SOLUTION 16 UNITS SUBCUTANEOUS BID, NOTES: 03-07-2021 TAKING COLACE 100 MG CAPSULE 1 CAPSULE NEEDED ORALLY ONCE A DAY TAKING BYDUREON 2 MG PEN-INJECTOR DIRECTED SUBCUTANEOUS WEEKLY TAKING BOTOX 100 UNIT SOLUTION RECONSTITUTED FOR IM INJECTION AT THE HEAD, NECK AND SHOULDER MUSCLES ICD G43.709 BOTOX APPT AT 2:30PM ON 10/25/2020. TAKING TOPAMAX 100 MG TABLET 1 TABLET ORALLY FOR PAIN TWICE A DAY TAKING AMITRIPTYLINE HCL 50 MG TABLET 3 TAB ORALLY ONCE A DAY AT HS FOR TOTAL OF 150MG TAKING PERCOCET 5-325 MG TABLET 1 ORALLY EVERY OTHER DAY X30 DAYS THEN STOP =MDD TAKING KETOROLAC TROMETHAMINE 10 MG TABLET 1 TABLET WITH FOOD OR MILK NEEDED ORALLY Q6H PRN FOR SEVERE PAIN MDD4, NOTES: COUPLE WEEKS NOT-TAKING BOTOX 100 UNIT SOLUTION RECONSTITUTED FOR IM INJECTION AT THE HEAD, NECK AND SHOULDER MUSCLES ICD G43.709 BOTOX ON 12/29/20 AT 10:40 NOT-TAKING NARCAN 4 MG/0.1ML LIQUID DIRECTED NASALLY FOR OPIOID OVERDOSE, NOTES: NEVER NOT-TAKING FENTANYL 12 MCG/HR PATCH 72 HOUR 1 PATCH TO SKIN TRANSDERMAL Q72 HR=MDD, NOTES: NOT TAKING MEDICATION LIST REVIEWED AND RECONCILED WITH THE PATIENT ALLERGIES NO[ALLERGIES VERIFIED] VITAL SIGNS WT 337.2 LBS, HT 78 IN, BMI 38.96 INDEX, BP 163/99 MM HG, HR 89 /MIN, RR 20 /MIN, TEMP 97.5 F, OXYGEN SAT % 98%, SAFE IN ENV? (Y/N) YES, NA INITIALS SC 11:48, REVIEWED BY: BULL. EXAMINATION GENERAL: A HISTORY AND PHYSICAL EXAM ON THE PATIENT WAS DONE ON 03/07/2021 (DATE OF ORIGINAL ASSESSMENT) IN PREPARATION OF SURGERY/PROCEDURE. I HAVE NOW REASSESSED THIS PATIENT'S HEALTH STATUS AND PERFORMED AN UPDATED EXAM TODAY. ALL CHANGES IN THE PATIENT'S HISTORY, PHYSICAL EXAM, PRE-EXISTING CONDITONS, AND INDICATIONS/CONTRAINDICATIONS TO THE PLANNED PROCEDURE AND ANESTHESIA ARE DOCUMENTED AND EVALUATED BELOW. I ATTEST TO THE ADEQUACY AND APPROPRIATENESS OF MY ASSESSMENT, AND CONFIRM THE NECESSITY FOR THE PLANNED PROCEDURE. THE PATIENT IS ALERT, ORIENTED TIMES THREE AND COOPERATIVE. LUNGS ARE CLEAR TO AUSCULTATION. HEART SHOWS REGULAR RHYTHM, NO MURMURS AND NO GALLOPS. ASSESSMENTS INTERVERTEBRAL DISC DISORDERS WITH RADICULOPATHY, LUMBOSACRAL REGION - M51.17 (PRIMARY) INTERVERTEBRAL DISC DISORDER WITH RADICULOPATHY OF LUMBAR REGION - M51.16 TREATMENT INTERVERTEBRAL DISC DISORDERS WITH RADICULOPATHY, LUMBOSACRAL REGION [facility] FLUORO GUIDE SPINE INJECTION (PAIN)[id number] INTERVERTEBRAL DISC DISORDER WITH RADICULOPATHY OF LUMBAR REGION [facility] FLUORO GUIDE SPINE INJECTION (PAIN)[id number] MEDICATION: FENTANYL CITRATE 25MCG IVGULLOJERELNEVA 03/10/2021 1:09:04 PM > VERIFIED LYN JIMENEZL 03/10/2021 2:04:41 PM > ORDER CANCELED MED: VERSED 1MG IV MIDAZOLAMGULLNEVA Schilling 03/10/2021 12:55:18 PM > VERIFIED ALFREDOOALFREDO 03/10/2021 1:49:20 PM > SECOND DOSE ORDERED, VERIFIED WITH SAMY SNOWDEN 03/10/2021 3:19:10 PM > 1ST DOSE @ 1344, 2ND DOSE @ 1348. TOTAL VERSED GIVEN: 4 MG. MEDICATION: FENTANYL CITRATE 50MCG IV DILEONALYN CHAVEZL 03/10/2021 1:52:28 PM > SECOND DOSE ORDERED, VERIFIED WITH SAMY SNOWDEN 03/10/2021 3:20:40 PM > 1ST DOSE @ 1346, 2ND DOSE @ 1352. TOTAL FENTANYL GIVEN: 200 MCG. MED: VERSED 2MG IV MIDAZOLAMSAMY MOTLYE 03/10/2021 3:15:25 PM > VERIFIED WITH DR. LEONARDO. GIVEN @ 1339. OXYGEN AT 2 LITERS PER NASAL CANNULASAMY MOTLEY 03/10/2021 2:30:35 PM > OXYGEN ON @ 1330. OXYGEN OFF @ 1403. IV LACTATED RINGER'S AT NEVA CHERY 03/10/2021 1:15:56 PM > 22 G STARTED ON RIGHT HAND 1ST ATTEMPT SAMY MOTLEY 03/10/2021 2:31:08 PM > TOTAL OF 200 ML GIVEN. COMPLETION OF PROCEDURAL VISIT WHEN MEETS CRITERIA MEDICATION: PAIN ZOFRAN 4MG/2ML IV ONDANSETRONNEVA SEALS 03/10/2021 12:55:40 PM > VERIFIED SAMY MOTLEY 03/10/2021 1:09:35 PM > ADMINISTERED. MED: PAIN BENADRYL 25MG IV DIPHENHYDRAMINENEVA SEALS 03/10/2021 12:56:10 PM > VERIFIED SAMY MOTLEY 03/10/2021 1:10:56 PM > ADMINISTERED. DILEONARDSILVANO SchillingALFREDO 03/10/2021 1:56:05 PM > SECOND DOSE ORDERED, VERIFIED WITH SAMY SNOWDEN 03/10/2021 2:34:37 PM > 2ND DOSE GIVEN @ 1355. TOTAL GIVEN: 50 MG. MEDICATION: FENTANYL CITRATE 100MCG IVKEVINGRANTSAMY Annie 03/10/2021 3:17:09 PM > VERIFIED WITH DR. LEONARDO. GIVEN @ 1342. PROCEDURES PAIN NURSING RECORD PROCEDURE IN ROOM 1323, PHYSICIAN IN ROOM 1335, START 1344, FINISH 1402, PHYSICIAN OUT OF ROOM 1404, OUT OF ROOM 1415, ECG NORMAL SINUS, PATIENT SHIELDED YES, SAFETY STRAP NO, PREP CHLOROPREP Constance SEALS RN, DRESSING TEGADERM DR. LEONARDO LOC: 1. ALERT, ORIENTED NEVA SEALS 03/10/2021 1:47:03 PM > RESP: 1. REGULAR, NO DYSPNEA NEVA SEALS 03/10/2021 1:47:07 PM > COLOR: 1. PINK NEVA SEALS 03/10/2021 1:47:12 PM > SKIN: 1. WARM, DRY NEVA SEALS 03/10/2021 1:47:16 PM > POSITION: 1. PRONE NEVA SEALS 03/10/2021 1:47:31 PM > VITALS: 1330 172/88, 92 98% ON 2 LITERS RESP 20 KGULLO RN 1335 165 /114 91 97% ON 2 LITERS RESP 20 KGULLO RN 1340 155/99 94 98% ON 2 LITERS RESP 18 KGULLO RN 1345 191/145 94 01% ON 2 LITERS RESP 18 KGULLO RN 1350 181/109 92 88 ON 2 LITERS ENCOURAGED TO BREATH DEEP RESP 22 [id number] 92 97% ON 2 LITERS RESP 20 KGULLO RN 1400 142/88 92 95 97% ON 2 LITERS RESP 18 KGULLO RN 1405 161/76 88 96% ON 2 LITERS RESP 18 KGULLO RN 1420 141/76 90 93 ON RA RESP 18 KGULLO RN POST PROCEDURE AND AT DISCHARGE VS STABLE NOTES Constance SEALS RN COMPLETION OF PROCEDURE APPOINTMENT: POST PAIN 5, DRESSING SITE DRY AND INTACT, IV DISCONTINUED, SITE CLEAR, CATHETER INTACT KONSTANTIN RN, GAIT STEADY WITH WALKING STICK JUST PRIOR TO PROCEDURE, TEACHING COMPLETED, PATIENT ACKNOWLEDGES UNDERSTANDING YES WENT OVER ENTIRE POST PROCEDURE EDUCATION INCLUDING DIARY WITH THE PATIENT AND HIS BOTH VERBALIZED UNDERSTANDING, PROCEDURE APPOINTMENT COMPLETED AT 1425 BY: Constance SEALS RN PN LUMBAR TRANSFORAMINAL BLOCKS PRE PROCEDURE DIAGNOSIS LUMBAR DISC DISORDER WITH RADICULOPATHY POST PROCEDURE DIAGNOSIS LUMBAR DISC DISORDER WITH RADICULOPATHY PROCEDURE RIGHT L2-L3 AND RIGHT L5-S1 TRANSFORAMINAL EPIDURAL STEROID INJECTION UNDER FLUOROSCOPIC GUIDANCE SURGEON DR JAVON LEONARDO POWER BRAKE REBUILDER NONE ANESTHESIA LOCAL WITH IV SEDATION PRE PROCEDURE NOTE THE PATIENT WITH HISTORY OF CHRONIC LOW BACK PAIN. I EVALUATED THE PATIENT AND REVIEWED THE CHART. I WENT OVER THE RISKS, ALTERNATIVES, AND BENEFITS ASSOCIATED WITH THIS PROCEDURE. THE PATIENT WOULD LIKE TO PROCEED AND GIVE CONSENT TO PERFORMED THE PROCEDURE. THE PATIENT WOULD LIKE TO MOVE FORWARD WITH IV SEDATION DUE TO PAIN AND ANXIETY ASSOCIATED WITH THE PROCEDURE. THE PATIENT DENIES UNEXPLAINABLE WEIGHT LOSS, FEVER, CHILLS, OR CHANGES IN URINARY OR BOWEL CONTROL. THE PATIENT IS COVID-19 NEGATIVE DESCRIPTION OF PROCEDURE THE PATIENT WAS BROUGHT TO THE PROCEDURE ROOM AND PLACED IN THE PRONE POSITION. THE LUMBOSACRAL AREA WAS CLEANED WITH BETADINE SOLUTION AND DRAPED ASEPTICALLY. THE PROCEDURE WAS DONE UNDER STERILE CONDITIONS. A TIMEOUT WAS PERFORMED WHERE THE CONSENTED SITE WAS VERIFIED WITH EVERYONE IN THE ROOM. UNDER FLUOROSCOPIC GUIDANCE, THE TARGET POINT WAS SELECTED AT THE RIGHT TRANSFORAMINAL OPENING OF L2 AND THE RIGHT TRANSFORAMINAL OPENING OF L5. TARGET POINT WAS SELECTED AFTER LATERAL ROTATION AND TILT OF THE MAGNIFIER OF THE C-ARM. I CONFIRMED AGAIN THE SITE OF TARGET. LIDOCAINE 0.5% WAS USED TO NUMB THE SKIN AND THE SUBCUTANEOUS TISSUE BELOW IT. AN EPIMED INTRODUCER, 18-GAUGE, WAS ADVANCED UNTIL I WENT CLOSE TO THE SELECTED TRANSFORAMINAL OPENINGS. AFTER PROPER POSITION OF THE NEEDLES WAS ACHIEVED, A 22-GAUGE, EPIMED NEEDLE, WAS PLACED INSIDE OF THE INTRODUCER AND ADVANCED TO THE TRANSFORAMINAL OPENING OF THE SELECTED SITES. WHEN PROPER POSITION OF THE NEEDLE WAS ACHIEVED, ISOVUE-M DYE 30%, 0.25 ML, WAS INJECTED SHOWING ADEQUATE SPREAD OF THE DYE. THIS WAS DONE UNDER DIGITAL SUBTRACTION AND ANGIOGRAPHY. THERE WAS NO VASCULAR UPDATE. THEN, A SOLUTION OF 2 ML OF BUPIVACAINE 0.25% AND DEXAMETHASONE 5 MG WAS INJECTED AT EACH SITE. THE MEDICATION WAS VERIFIED WITH THE NURSE. THERE WAS NO EVIDENCE OF BLOOD, PARESTHESIA OR CEREBROSPINAL FLUID DURING THE PROCEDURE. THE PATIENT WAS SENT TO THE RECOVERY ROOM. THE PATIENT WAS MOVING THE EXTREMITIES AND DOING WELL. THERE WAS NO COMPLICATION DURING THE PROCEDURE. ESTIMATED BLOOD LOSS WAS LESS THAN 5 ML. FLUOROSCOPY TIME WAS 1 MINUTE 18 SECONDS. THE PATIENT RECEIVED VERSED 4 MG AND FENTANYL 200 MCG AND BENADRYL 50 MG IV IN DIVIDED DOSES. FACE TO FACE START TIME: 1339 FACE TO FACE END TIME: 1404 TOTAL FACE TO FACE TIME: 25 MINUTES. POST PROCEDURE NOTE CONSIDER DOING ANY FUTURE PROCEDURES IN THE OR DUE TO THE AMOUNT OF SEDATION THE PATIENT NEEDS. THE PROCEDURE DONE WAS DISCUSSED WITH THE PATIENT. THE PATIENT WILL BE SEEN IN A FOLLOW UP IN THE NEXT FEW WEEKS. I AM LOOKING FOR LONG LASTING PAIN RELIEF FOR THE PATIENT WITH THIS INTERVENTION. INSTRUCTIONS WERE GIVEN, QUESTIONS WERE ANSWERED, AND THE PATIENT EXPRESSED UNDERSTANDING AND AGREES WITH THE PLAN. I, ALFREDO JIMENEZ, DOCUMENTED THE ABOVE INFORMATION ACTING A SCRIBE FOR DR. LEONARDO. I HAVE REVIEWED THE ABOVE DOCUMENT, WRITTEN BY ALFREDO JIMENEZ, RADIO DESPATCHER, AND I VERIFY THAT IT IS ACCURATE PN WORKMANS' COMP OPINION IN YOUR OPINION, WAS THE INCIDENT THAT THE PATIENT DESCRIBED THE COMPETENT MEDICAL CAUSE OF THIS INJURY/ILLNESS? YES ARE THE PATIENT'S COMPLAINTS CONSISTENT WITH HIS/HER HISTORY OF THE INJURY/ILLNESS? YES IS THE PATIENT'S HISTORY OF THE INJURY/ILLNESS CONSISTENT WITH YOUR OBJECTIVE FINDING? YES WHAT IS THE PERCENTAGE OF TEMPORARY IMPAIRMENT? TOTAL = 100% IS THE PATIENT WORKING? NO DOCTOR ON SITE: JAVON VALDEZ MD PROCEDURE CODES 95311 INJ FORAMEN EPIDURAL L/S, [place]IF[place]: [place] [address] INJ FORAMEN EPIDURAL ADD-[place], [place]: [place] [address] MOD SED SAME PHYS/QHP 5/>YRS 95861 MOD SED SAME PHYS/QHP EA DISPOSITION & COMMUNICATION FOLLOW UP FOLLOW UP WITH INSTRUCTIONAL MATERIALS DIRECTOR (REASON: POST RIGHT TRANSFORMAINAL EPIDURAL STEROID INJECTION L2-L3, L5-S1) ELECTRONICALLY SIGNED BY JAVON LEONARDO MD, MD ON 03/10/2021 AT 05:39 PM EDT DISCLAIMER : THIS IS A VISIT SUMMARY EXTRACTED FROM THE [facility] CHART. IT IS NOT A COPY OF THE [facility] PROGRESS NOTE. CHRISTOPHERD
== END ==
LOC: M PAIN 11:40
PROVIDERS: ATTEND Anesthesiology
DX: M51.17 Intervertebral disc disorders with radiculopathy, lumbosacral region (principal); M51.16 Intervertebral disc disorders with radiculopathy, lumbar region; E11.9 Type 2 diabetes mellitus without complications; Z79.891 Long term (current) use of opiate analgesic; Z79.4 Long term (current) use of insulin; Z79.899 Other long term (current) drug therapy
CPT/HCPCS: 64483; 64484; 99152; 99153; J1100; J1200; J2250; J2405; J3010; Q9967

== ENCOUNTER → 2021-03-24 | Outpatient (CLI) | payer OTHER ==
[~2021-03-24] MED LIST changes: -BUPIVACAINE HCL 0.25% 30ML VIAL As Ordered ONE; -ISOVUE-M 300 61% 15ML VIAL As Ordered ONE; -LIDOCAINE 1% SDV 30ML VIAL As Ordered ONE; -MIDAZOLAM INJ 2MG/2ML VIAL (J2250 PER 1MG) As Ordered ONE; -ONDANSETRON 4MG/2ML VIAL As Ordered ONE; -dexameTHASONE 10MG/1ML VIAL PRES.FREE (J1100 PER 1MG) As Ordered ONE; -diphenhydrAMINE 50MG/ML VIAL (J1200) As Ordered ONE; -fentaNYL 100 MCG/2 ML INJECTION (J3010) As Ordered ONE
--- NOTE | 2021-03-29 01:36 | ECWPNPC ---
PATIENT NAME: ALEX JI : 1965 GENDER: MALE VISIT DATE: 03/24/2021 DISCHARGE DATE: 03/24/21 1026 VISIT LOCKED DATE TIME: PHYSICIAN: BLANE EUGENE RESOURCE: BLANE EUGENE REASON FOR APPOINTMENT 1. POST RIGHT TRANSFORAMINAL EPIDURAL STEROID INJECTION L2-3,L5-S1 WITH IV SEDATION HISTORY OF PRESENT ILLNESS GENERAL: HERE FOR POST PROCEDURE FOLLOW-UP. HAD RIGHT L2-3, L5-S1 TRANSFORAMINAL STEROID INJECTION ON 03/10/2021. THIS WAS DONE WITH IV SEDATION. PATIENT REPORTS GREATER THAN 80% REDUCTION IN PAIN POST PROCEDURE THAT CONTINUES TODAY. REPORTING IMPROVED SLEEP AND IMPROVED ACTIVITY TOLERANCE SINCE PROCEDURE. THIS IS A WORK RELATED INJURY. CHIEF COMPLAINT IS PERSISTENT NECK AND HEAD PAIN. WILL BE SCHEDULED FOR BOTOX INJECTIONS IN THE NEAR FUTURE. -. FALL RISK SCREENING: SCREENING : NO FALLS REPORTED IN THE LAST YEAR. PAIN SCREENING: PATIENT HAS A COMPLAINT OF ACUTE OR CHRONIC PAIN :YES LOCATION OF PAIN:LOW BACK INTENSITY OF PAIN (SCALE OF 1 TO 10):5 WHAT DOES YOUR PAIN FEEL LIKE:CONTINOUS, TENDER, SORE DURATION:CONTINOUS, CONSTANT, ALL DAY PAIN IS INCREASED BY:ACTIVITIES PAIN IS DECREASED BY:USE OF PAIN MEDICATIONS NURSING NOTE: -. PAIN CENTER INTAKE QUESTIONS: DO YOU HAVE A HISTORY OF MRSA? :NO DO YOU TAKE A BLOOD THINNERS? :NO DO YOU HAVE ANY BLEEDING DISORDERS? :NO ANY NEW NUMBNESS OR WEAKNESS IN YOUR LEGS OR ARMS? :NO RIGHT FEET NUMBESS ANY PACEMAKER,DEFIBRILLATOR, OR DORSAL COLUMN STIMULATOR? :NO DO YOU HAVE ANY RASHES OR OPEN SORES? :NO ARE YOU ALLERGIC TO IV DYE? :NO ARE YOU DIABETIC? :YES ANY NEW PROBLEMS WITH YOUR MEDICATIONS? :NO HAVE YOU RECEIVED A VACCINE IN THE PAST 30 DAYS? :NO DO YOU PLAN TO RECEIVE A VACCINE IN THE NEXT 21 DAYS? :NO DO YOU NEED ANY PRESCRIPTION? :NO DO YOU TAKE ANY IMMUNOSUPPRESSIVE MEDICATIONS? :NO IS THERE A CHANCE YOU COULD BE ? :NO ARE YOU BREAST FEEDING? :NO CURRENT MEDICATIONS TAKING PINDOLOL 5 MG TABLET 1 TABLET ORALLY FOUR TIMES A DAY TAKING POTASSIUM CHLORIDE 10 MEQ (PRT) TABLET EXTENDED RELEASE 1 TABLET ORALLY TWICE DAILY TAKING METFORMIN HCL ER 750 MG TABLET EXTENDED RELEASE 24 HOUR ORALLY TWICE A DAY TAKING ATENOLOL 50 MG TABLET 1 TABLET ORALLY BID TAKING LEVOTHYROXINE SODIUM 50 MCG TABLET 1 TABLET ORALLY ONCE A DAY TAKING TRIAMTERENE-HCTZ 37.5-25 MG TABLET 1 TABLET IN THE MORNING ORALLY ONCE A DAY TAKING FLONASE ALLERGY RELIEF 50 MCG/ACT SUSPENSION 1 SPRAY IN EACH NOSTRIL NASALLY ONCE A DAY NEEDED TAKING MAY HAVE - - MEDICAL MARIJUANA DIRECTED TAKING CYCLOBENZAPRINE HCL 10 MG TABLET 1 TABLET NEEDED ORALLY Q6-8H PRN FOR SEVERE MUSCLE SPASM PAIN #45 TAB. SHOULD LAST 30 DAYS TAKING LEVEMIR 100 UNIT/ML SOLUTION 16 UNITS SUBCUTANEOUS BID TAKING COLACE 100 MG CAPSULE 1 CAPSULE NEEDED ORALLY ONCE A DAY TAKING BYDUREON 2 MG PEN-INJECTOR DIRECTED SUBCUTANEOUS WEEKLY TAKING BOTOX 100 UNIT SOLUTION RECONSTITUTED FOR IM INJECTION AT THE HEAD, NECK AND SHOULDER MUSCLES ICD G43.709 BOTOX APPT AT 2:30PM ON 10/25/2020. TAKING TOPAMAX 100 MG TABLET 1 TABLET ORALLY FOR PAIN TWICE A DAY TAKING AMITRIPTYLINE HCL 50 MG TABLET 3 TAB ORALLY ONCE A DAY AT HS FOR TOTAL OF 150MG, NOTES: 150MG TAKING KETOROLAC TROMETHAMINE 10 MG TABLET 1 TABLET WITH FOOD OR MILK NEEDED ORALLY Q6H PRN FOR SEVERE PAIN MDD4, NOTES: COUPLE WEEKS NOT-TAKING PERCOCET 5-325 MG TABLET 1 ORALLY EVERY OTHER DAY X30 DAYS THEN STOP =MDD NOT-TAKING BOTOX 100 UNIT SOLUTION RECONSTITUTED FOR IM INJECTION AT THE HEAD, NECK AND SHOULDER MUSCLES ICD G43.709 BOTOX ON 12/29/20 AT 10:40 NOT-TAKING NARCAN 4 MG/0.1ML LIQUID DIRECTED NASALLY FOR OPIOID OVERDOSE, NOTES: NEVER NOT-TAKING FENTANYL 12 MCG/HR PATCH 72 HOUR 1 PATCH TO SKIN TRANSDERMAL Q72 HR=MDD, NOTES: NOT TAKING MEDICATION LIST REVIEWED AND RECONCILED WITH THE PATIENT PAST MEDICAL HISTORY DM, HTN, CHRONIC PAIN , THYROID DISEASE, GERD, MIGRANES LEFT KNEE PAIN RIGHT SHOULDER LABRIUM TEAR FUSION AT 3-4 C BACK AND NECK SPASMS CHRONIC PAIN MULTPY FALLS REPORTED IN THE LAST YEAR NO INJURIES, 6 FALLS THIS YEAR, WHEN TO THE ER FOR A COUPLE OF THEM, LEFT KNEE REPLACEMENT ,RIGHT SHOULDER.. ALLERGIES AZITHROMYCIN: LIP SWELLING - ALLERGY SUMATRIPTAN: FACIAL SWELLING - ALLERGY PROPOXYPHENE: PRICKLY FEELING, RASH, SOB - ALLERGY REVIEW OF SYSTEMS CONSTITUTIONAL: ANY RECENT FEVER NO . CHILLS NO . WEIGHT CHANGE OF UNKNOWN REASONS NO . GASTROENTEROLOGY: NEW UNEXPLAINABLE CHANGES IN BOWEL CONTROL NO . CONSTIPATION NO . GENITOURINARY: ANY NEW CHANGE IN BLADDER CONTROL? NO . NEUROLOGY: NEW ONSET DIZZINESS OR NEUROLOGICAL CHANGES NOT MENTIONED NO . NEW NUMBNESS OR PAIN PATTERNS NOT MENTIONED AND PERTINENT TO TODAY'S VISIT NO . CARDIOLOGY: NEW CHEST PRESSURE NO . PATIENT DENIES NO . RESPIRATORY: UNEXPLAINABLE COUGH NO . NEW SHORTNESS OF BREATH NO . VITAL SIGNS WT 331.8 LBS, HT 78 IN, BMI 38.34 INDEX, BP 146/76 MM HG, REPEAT BP 136/84 MM HG, HR 89 /MIN, RR 18 /MIN, TEMP 97.4 F, OXYGEN SAT % 100%, SAFE IN ENV? (Y/N) YES, NA INITIALS AW 0941T.UNIQUE VALDEZ. EXAMINATION GENERAL EXAMINATION: GENERALAWAKE,ALERT ,PLEASANT . PSYCHAFFECT NORMAL . LUNGS:LUNG OWENS ARE CLEAR TO AUSCULTATION BILATERALLY. GOOD MOVEMENT OF AIR . HEART:S1, S2 IN A REGULAR RATE AND RHYTHM. NO SIGNIFICANT MURMURS, RUBS OR GALLOPS NOTED . ASSESSMENTS OTHER CHRONIC PAIN - G89.29 (PRIMARY) INTERVERTEBRAL DISC DISORDERS WITH RADICULOPATHY, LUMBOSACRAL REGION - M51.17 TREATMENT OTHER CHRONIC PAIN REFILL CYCLOBENZAPRINE HCL TABLET, 10 MG, 1 TABLET NEEDED, ORALLY, Q6-8H PRN FOR SEVERE MUSCLE SPASM PAIN #45 TAB. SHOULD LAST 30 DAYS, 30 DAYS, 45, REFILLS 5 PAIN PROCEDURE LOGDATE OF PROCEDURE1PROCEDURE:RIGHT TRANSFORAMINAL EPIDURAL STERIOD INJECTION L2-L3,L5-E2DJFAEI OF PRE SEDATEVERSED 4MG, FENTANYL 200MCG, BENADRYL 50MGRESULT:MARKED REDUCTION IN PAIN CONTINUES TODAY PROCEDURES PN WORKMANS' COMP OPINION IN YOUR OPINION, WAS THE INCIDENT THAT THE PATIENT DESCRIBED THE COMPETENT MEDICAL CAUSE OF THIS INJURY/ILLNESS? YES ARE THE PATIENT'S COMPLAINTS CONSISTENT WITH HIS/HER HISTORY OF THE INJURY/ILLNESS? YES IS THE PATIENT'S HISTORY OF THE INJURY/ILLNESS CONSISTENT WITH YOUR OBJECTIVE FINDING? YES WHAT IS THE PERCENTAGE OF TEMPORARY IMPAIRMENT? MARKED = 75% IS THE PATIENT WORKING? NO DOCTOR ON SITE: JAVON VALDEZ MD PROCEDURE CODES FA211 ESTABILISHED PATIENT [facility] CHARGE DISPOSITION & COMMUNICATION FOLLOW UP 3 MONTHS W ME/F/U DR Swift 6WKS OR HWEN AVAILABLE TALK PROCEDURES (REASON: W/C F/U LBP/RESPONDS WELL TO TRANSFORAMINAL EPIDURAL) ELECTRONICALLY SIGNED BY MEKA BAPTISTE ON 03/28/2021 AT 10:16 AM EDT DISCLAIMER : THIS IS A VISIT SUMMARY EXTRACTED FROM THE [employer] CHART. IT IS NOT A COPY OF THE [employer] PROGRESS NOTE. NAHEED
== END ==
LOC: M PAIN 09:30
PROVIDERS: ATTEND Nurse Practitioner Family
DX: G89.29 Other chronic pain (principal); M51.17 Intervertebral disc disorders with radiculopathy, lumbosacral region; E11.9 Type 2 diabetes mellitus without complications; I10 Essential (primary) hypertension; E07.9 Disorder of thyroid, unspecified; K21.9 Gastro-esophageal reflux disease without esophagitis; G43.909 Migraine, unspecified, not intractable, without status migrainosus; Z98.1 Arthrodesis status; Z88.1 Allergy status to other antibiotic agents; Z79.4 Long term (current) use of insulin; Z79.899 Other long term (current) drug therapy

== ENCOUNTER → 2021-05-13 | Outpatient (CLI) | payer OTHER ==
[~2021-05-13] MED LIST changes: +BYDU2INJ7 SC; +CLAR10CA3 PO; +FLON1SPR; +POTA-151 PO; -POTA20TA6 PO
== END ==
LOC: M PAIN 10:30
PROVIDERS: ATTEND Anesthesiology
DX: M48.062 Spinal stenosis, lumbar region with neurogenic claudication (principal); M51.16 Intervertebral disc disorders with radiculopathy, lumbar region; E11.9 Type 2 diabetes mellitus without complications; M25.562 Pain in left knee; Z98.1 Arthrodesis status; Z79.4 Long term (current) use of insulin; Z79.891 Long term (current) use of opiate analgesic; Z79.899 Other long term (current) drug therapy; Z88.1 Allergy status to other antibiotic agents; Z88.8 Allergy status to other drugs, medicaments and biological substances

== ENCOUNTER → 2021-05-19 | Outpatient (CLI) | payer OTHER ==
[~2021-05-19] MED LIST changes: -BYDU2INJ7 SC; -CLAR10CA3 PO; -FLON1SPR; -POTA-151 PO; +POTA20TA6 PO
== END ==
LOC: M LABSMTC 09:46
PROVIDERS: ATTEND Anesthesiology
DX: Z01.818 Encounter for other preprocedural examination (principal); Z20.822 Contact with and (suspected) exposure to COVID-19

== ENCOUNTER → 2021-05-24 | Outpatient (CLI) | payer OTHER ==
[~2021-05-24] MED LIST changes: +BOTOX THERAPEUTIC 100 UNIT VIAL (J0585 PER 1 UNIT) IM ONE; +diazePAM 5MG TABLET As Ordered ONE; +oxyCODONE 5MG TAB As Ordered ONE
--- NOTE | 2021-05-28 04:40 | ECWPNPC ---
PATIENT NAME: ALEX JI : 1965 GENDER: MALE VISIT DATE: 05/24/2021 DISCHARGE DATE: 05/24/21 1324 VISIT LOCKED DATE TIME: PHYSICIAN: JAVON LEONARDO MD RESOURCE: JAVON LEONARDO MD REASON FOR APPOINTMENT 1. BOTOX INJECTIONS FOR HEAD,BILATERAL NECK, BILATERAL SHOULDERS HISTORY OF PRESENT ILLNESS GENERAL: -. FALL RISK SCREENING: SCREENING : NO FALLS REPORTED IN THE LAST YEAR. PAIN SCREENING: PATIENT HAS A COMPLAINT OF ACUTE OR CHRONIC PAIN :YES LOCATION OF PAIN:HEAD, NECK, BOTH SHOULDERS INTENSITY OF PAIN (SCALE OF 1 TO 10):8 WHAT DOES YOUR PAIN FEEL LIKE:ACHING, BURNING DURATION:CONTINOUS, CONSTANT, STEADY, ALL DAY PAIN IS INCREASED BY:ACTIVITIES PAIN IS DECREASED BY:USE OF PAIN MEDICATIONS REPOSITIONING NURSING NOTE: -. PAIN CENTER INTAKE QUESTIONS: DO YOU HAVE A HISTORY OF MRSA? :NO DO YOU TAKE A BLOOD THINNERS? :NO DO YOU HAVE ANY BLEEDING DISORDERS? :NO ANY NEW NUMBNESS OR WEAKNESS IN YOUR LEGS OR ARMS? :NO ANY PACEMAKER,DEFIBRILLATOR, OR DORSAL COLUMN STIMULATOR? :NO DO YOU HAVE ANY RASHES OR OPEN SORES? :NO ARE YOU ALLERGIC TO IV DYE? :NO ARE YOU DIABETIC? :YES FSBS: ANY NEW PROBLEMS WITH YOUR MEDICATIONS? :NO HAVE YOU RECEIVED A VACCINE IN THE PAST 30 DAYS? :NO DO YOU PLAN TO RECEIVE A VACCINE IN THE NEXT 21 DAYS? :NO DO YOU TAKE ANY IMMUNOSUPPRESSIVE MEDICATIONS? :NO ANY HISTORY OF SEIZURES? :NO ANY HISTORY OF CARDIAC ISSUES OR EVENTS? :NO DO YOU HAVE ANY KIDNEY OR LIVER DISEASE? :NO DO YOU HAVE SLEEP APNEA? :NO ANY RECENT HEAD INJURY? :NO DO YOU HAVE ANY NEW INFECTIONS? :NO IS THERE A CHANCE YOU COULD BE ? :NO ARE YOU BREAST FEEDING? :NO WHEN DID YOU LAST EAT? : 05/23/21 WHEN DID YOU LAST DRINK? : 05/24/21629 WHAT DID YOU LAST DRINK? : TEA NAME OF PERSON DRIVING YOU HOME? : - DILCIA DO YOU HAVE ANY OTHER QUESTIONS OR CONCERNS? : - CURRENT MEDICATIONS TAKING PINDOLOL 5 MG TABLET 1 TABLET ORALLY FOUR TIMES A DAY, NOTES: 05/24/21629 TAKING POTASSIUM CHLORIDE 10 MEQ (PRT) TABLET EXTENDED RELEASE 1 TABLET ORALLY TWICE DAILY TAKING METFORMIN HCL ER 750 MG TABLET EXTENDED RELEASE 24 HOUR ORALLY TWICE A DAY, NOTES: 05/23/21 TAKING ATENOLOL 50 MG TABLET 1 TABLET ORALLY BID, NOTES: 05/24/21 0630 TAKING LEVOTHYROXINE SODIUM 50 MCG TABLET 1 TABLET ORALLY ONCE A DAY TAKING TRIAMTERENE-HCTZ 37.5-25 MG TABLET 1 TABLET IN THE MORNING ORALLY ONCE A DAY TAKING FLONASE ALLERGY RELIEF 50 MCG/ACT SUSPENSION 1 SPRAY IN EACH NOSTRIL NASALLY ONCE A DAY NEEDED TAKING MAY HAVE - - MEDICAL MARIJUANA DIRECTED, NOTES: LAST WEEK TAKING LEVEMIR 100 UNIT/ML SOLUTION 16 UNITS SUBCUTANEOUS BID, NOTES: 05/23/21 TAKING COLACE 100 MG CAPSULE 1 CAPSULE NEEDED ORALLY ONCE A DAY TAKING BYDUREON 2 MG PEN-INJECTOR DIRECTED SUBCUTANEOUS WEEKLY TAKING BOTOX 100 UNIT SOLUTION RECONSTITUTED FOR IM INJECTION AT THE HEAD, NECK AND SHOULDER MUSCLES ICD G43.709 BOTOX APPT AT 2:30PM ON 10/25/2020. TAKING TOPAMAX 100 MG TABLET 1 TABLET ORALLY FOR PAIN TWICE A DAY TAKING KETOROLAC TROMETHAMINE 10 MG TABLET 1 TABLET WITH FOOD OR MILK NEEDED ORALLY Q6H PRN FOR SEVERE PAIN MDD4, NOTES: 05/22/21 TAKING CYCLOBENZAPRINE HCL 10 MG TABLET 1 TABLET NEEDED ORALLY Q6-8H PRN FOR SEVERE MUSCLE SPASM PAIN #45 TAB. SHOULD LAST 30 DAYS, NOTES: 05/22/21 TAKING AMITRIPTYLINE HCL 50 MG TABLET 3 TAB ORALLY ONCE A DAY AT HS FOR TOTAL OF 150MG, NOTES: 150MG TAKING BOTOX 100 UNIT SOLUTION RECONSTITUTED FOR IM INJECTION AT THE HEAD, NECK AND SHOULDER MUSCLES ICD G43.709 BOTOX ON 05/24/21 AT 10:40 NOT-TAKING PERCOCET 5-325 MG TABLET 1 ORALLY EVERY OTHER DAY X30 DAYS THEN STOP =MDD NOT-TAKING BOTOX 100 UNIT SOLUTION RECONSTITUTED FOR IM INJECTION AT THE HEAD, NECK AND SHOULDER MUSCLES ICD G43.709 BOTOX ON 12/29/20 AT 10:40 NOT-TAKING NARCAN 4 MG/0.1ML LIQUID DIRECTED NASALLY FOR OPIOID OVERDOSE, NOTES: NEVER NOT-TAKING FENTANYL 12 MCG/HR PATCH 72 HOUR 1 PATCH TO SKIN TRANSDERMAL Q72 HR=MDD, NOTES: NOT TAKING MEDICATION LIST REVIEWED AND RECONCILED WITH THE PATIENT PAST MEDICAL HISTORY DM, HTN, CHRONIC PAIN , THYROID DISEASE, GERD, MIGRANES LEFT KNEE PAIN RIGHT SHOULDER LABRIUM TEAR FUSION AT 3-4 C BACK AND NECK SPASMS CHRONIC PAIN MULTPY FALLS REPORTED IN THE LAST YEAR NO INJURIES, 6 FALLS THIS YEAR, WHEN TO THE ER FOR A COUPLE OF THEM, LEFT KNEE REPLACEMENT ,RIGHT SHOULDER.. ALLERGIES AZITHROMYCIN: LIP SWELLING - ALLERGY SUMATRIPTAN: FACIAL SWELLING - ALLERGY PROPOXYPHENE: PRICKLY FEELING, RASH, SOB - ALLERGY SOCIAL HISTORY GENERAL: TOBACCO USE ARE YOU A:NONSMOKER LATEX QUESTIONNAIRE LATEX ALLERGY : HAVE YOU EVER DEVELOPED ANY TYPE OF REACTION AFTER HANDLING LATEX PRODUCTS SUCH RUBBER GLOVES, CONDOMS, DIAPHRAGMS, BALLOONS, SOCKS, OR UNDERWEAR?NO LATEX ALLERGY : HAVE YOU EVER DEVELOPED ANY TYPE OF REACTION DURING OR AFTER DENTAL APPOINTMENT, VAGINAL/RECTAL EXAMINATION, SURGICAL PROCEDURE, OR ANY OTHER EXPOSURE?NO LATEX RISK : HAVE YOU EVER HAD ANY DIFFICULTY BREATHING OR HIVES AFTER EATING OR HANDLING ANY FRUITS, OR VEGETABLES; SUCH KIWI, BANANAS, STONE FRUITS, OR CHESTNUTSNO LATEX RISK : DO YOU HAVE A PREVIOUS PERSONAL HISTORY OF MORE THAN NINE SURGERIES, SPINA BIFIDA, OR REPEATED CATHERIZATIONS? NO LATEX RISK : ARE YOU FREQUENTLY EXPOSED TO LATEX PRODUCTS IN YOUR OCCUPATION?NO DATE ASKED : 05/13/2021 ALCOHOL USE: NO. LUNG CANCER SCREENING SMOKING STATUS:NON SMOKER ALCOHOL SCREENING DID YOU HAVE A DRINK CONTAINING ALCOHOL IN THE PAST YEAR?NO POINTS0 INTERPRETATIONNEGATIVE RECREATIONAL DRUG USE DRUG USE?NO HAS PRESCRIPTION FOR MEDICAL MARIJUANA. CAFFEINE CAFFEINE USE?NO HIV / HEP-C SCREENING HIV TEST OFFERED TO PATIENT:YES DATE OFFERED:01/17/2018 TEST ACCEPTED:NO REASON:PATIENT DECLINED BROCHURE PROVIDED TO PATIENTNO HEP-C TEST OFFERED TO PATIENT:YES DATE OFFERED:01/17/2018 TEST ACCEPTED:NO REASON:PATIENT DECLINED JAINISM [id number] CHEONDOISM LANGUAGE LANGUAGES SPOKEN:TANZANIAN LEARNING BARRIERS / SPECIAL NEEDS CHANGE FROM LAST VISIT?NO BARRIERS TO LEARNING?NO HEARING IMPAIRED?NO VISION IMPAIRED?YES :CORRECTIVE LENSES COGNITIVELY IMPAIRED?NO READINESS TO LEARN?YES LEARNING PREFERENCES?YES :BOOKLETS, HANDOUTS LEARNING CAPABILITIES PRESENT?YES EMOTIONAL BARRIERS?NO SPECIAL DEVICES?YES :CANE NEEDED COOPERER NEEDED?NO VITAL SIGNS WT 331.8 LBS, WT-KG 150.5 KG, HT 78 IN, BMI 38.34 INDEX, BP 135/80 MM HG, HR 93 /MIN, RR 18 /MIN, TEMP 97.5 F, OXYGEN SAT % 95%, SAFE IN ENV? (Y/N) Y, NA INITIALS AW 1044, REVIEWED BY: GINO. EXAMINATION GENERAL: THE PATIENT IS ALERT, ORIENTED TIMES THREE AND COOPERATIVE. LUNGS ARE CLEAR TO AUSCULTATION. HEART SHOWS REGULAR RHYTHM, NO MURMURS AND NO GALLOPS. ASSESSMENTS CHRONIC MIGRAINE - G43.709 (PRIMARY) TREATMENT CHRONIC MIGRAINE MEDICATION: PAIN VALIUM TAB 10MG ORALLY (DIAZEPAM)[id number],TOM 05/24/2021 12:07:25 PM > VERIFIED DAQUAN SONG 05/24/2021 12:10:03 PM > ADMINISTERED MEDICATION: PAIN OXYCODONE HCL TAB 10MG [id number],TOM 05/24/2021 12:08:02 PM > VERIFIED DAQUAN SONG 05/24/2021 12:10:19 PM > VERIFIED DAQUAN SONG 05/24/2021 12:10:59 PM > VERIFIED WRITTEN BY MISTAKE. ADMINISTERED. COMPLETION OF PROCEDURAL VISIT WHEN MEETS [id number],ELIZABETH 05/24/2021 1:44:01 PM > CRITERIA MET OTHERS CLINICAL NOTES: PAT COMPLETED 05/23/21 DAVIS MABRY. PROCEDURES PAIN NURSING RECORD PROCEDURE IN ROOM 1045, PHYSICIAN IN ROOM 1242, START 1247, FINISH 1257, PHYSICIAN OUT OF ROOM 1258, OUT OF ROOM 1320, ECG N/A, PATIENT SHIELDED N/A, SAFETY STRAP N/A, PREP ALCOHOL DR. LEONARDO, DRESSING N/A LOC: 1. ALERT, ORIENTED, DAQUAN SONG 05/24/2021 1:31:32 PM > RESP: 1. REGULAR, NO DYSPNEA, DAQUAN SONG 05/24/2021 1:31:38 PM > COLOR: 1. PINK, DAQUAN SONG 05/24/2021 1:31:42 PM > SKIN: 1. WARM, DRY, DAQUAN SONG 05/24/2021 1:31:47 PM > POSITION: 2. SUPINE, DAQUAN SONG 05/24/2021 1:32:46 PM > VITALS: 150/87, 91, 16, 96%, DAQUAN SONG 05/24/2021 1:05:09 PM > NOTES Lit SONG RN COMPLETION OF PROCEDURE APPOINTMENT: POST PAIN 4, DRESSING SITE NO DRESSING, IV N/A, GAIT STEADY CANE, TEACHING COMPLETED, PATIENT ACKNOWLEDGES UNDERSTANDING YES, PROCEDURE APPOINTMENT COMPLETED AT 1320 PN BOTOX INJECTIONS FIRST INJECTION PRE PROCEDURE DIAGNOSIS CHRONIC MIGRAINE HEADACHES POST PROCEDURE DIAGNOSIS CHRONIC MIGRAINE HEADACHES PROCEDURE BOTOX INJECTION AT THE HEAD, NECK AND SHOULDERS SURGEON DR. JAVON LEONARDO ORDER PLANNER NONE ANESTHESIA NONE PRE PROCEDURE NOTE THE PATIENT HAS HISTORY OF CHRONIC MIGRAINE HEADACHES. I EVALUATED THE PATIENT AND REVIEWED THE CHART. I WENT OVER THE RISKS, ALTERNATIVES, AND BENEFITS ASSOCIATED WITH THIS PROCEDURE. THE PATIENT WOULD LIKE TO PROCEED AND GAVE CONSENT TO PERFORM THE PROCEDURE. THE PATIENT DENIES UNEXPLAINABLE WEIGHT LOSS, FEVER, CHILLS, OR NEW CHANGES IN URINARY OR BOWEL CONTROL. BEFORE STARTING BOTOX INJECTIONS, HE WAS HAVING HEADACHES EVERY DAY. AFTER DOING BOTOX, HE HAS 10 PER MONTH. HE IS OVER DUE FOR HIS BOTOX INJECTIONS SO THE HEADACHES HAVE COME BACK. THE PATIENT HAS USED THE MEDICATIONS LISTED IN THE CHART TO TREAT THE HEADACHES FOR MANY MONTHS BUT THE HEADACHES PERSIST DESCRIBED ABOVE DESCRIPTION OF PROCEDURE THE PATIENT WAS BROUGHT TO THE PROCEDURE ROOM AND PLACED IN THE SUPINE POSITION. A TIMEOUT WAS PERFORMED WHERE THE CONSENTED SITE WAS VERIFIED WITH EVERYONE IN THE ROOM FOR THE PROCEDURE I USED A SOLUTION OF 5 UNITS OF BOTOX PER EACH 0.1 ML OF THE SOLUTION. I USED A 30-GAUGE NEEDLE TO INJECT THE SOLUTION AT THE SELECTED LOCATIONS. I INJECTED FIRST THE RIGHT AND LEFT TILE POWER SHEAR OPERATOR MUSCLES. THE LANDMARK FOR BOTH INJECTIONS WAS APPROXIMATELY 1 CM ABOVE THE SUPERIOR MEDIAL EDGE OF THE EYEBROW. AFTER THESE TWO INJECTIONS, I INJECTED THE PROCERUS MUSCLE AT THE MIDLINE POINT BETWEEN THESE FIRST TWO INJECTIONS. THEN I PROCEEDED TO INJECT THE RIGHT AND LEFT FRONTALIS MUSCLE. TWO INJECTIONS WERE DONE IN EACH SIDE. THE FIRST INJECTION WAS DONE APPROXIMATELY 2 CM ABOVE THE FIRST INJECTION OF THE TILE POWER SHEAR OPERATOR. THE SECOND INJECTION WAS DONE APPROXIMATELY 1.5 CM LATERAL TO THIS FIST INJECTION OF THE FRONTALIS OF EACH SIDE. AFTER THE INJECTIONS OVER THE FOREHEAD WERE DONE, I INJECTED 2.5 UNITS OF BOTOX IN 2 SPOTS ON THE LEFT SIDE OF THE CORONAL PLANE ON THE TOP OF HIS HEAD AND 2.5 UNITS IN 2 SPOTS OVER THE RIGHT SIDE OF THE CORONAL AREA FOR A TOTAL OF 10 UNITS OF ADDITIONAL BOTOX. THEN THE PATIENT'S HEAD WAS TURNED TO THE LEFT SIDE AND WE STARTED TO WORK WITH THE RIGHT TEMPORALIS MUSCLE. FIRST INJECTION WAS DONE IN A VERTICAL LINE OF THE TRAGUS APPROXIMATELY 3 CM ABOVE THE TRAGUS. THE SECOND INJECTION WAS DONE APPROXIMATELY 2 CM ABOVE THE FIRST INJECTION. THE THIRD INJECTION WAS DONE APPROXIMATELY 1 CM FORWARD FROM THIS VERTICAL LINE CREATED AT THE LEVEL OF THE TRAGUS, MCC BETWEEN THESE TWO INJECTIONS. THE FOURTH INJECTION WAS DONE APPROXIMATELY 1.5 CM BACK FROM THE SECOND INJECTION TO THE TEMPORALIS IN LINE TO THE MIDPORTION OF THE EAR. THEN, WE PROCEEDED TO INJECT THE LEFT TEMPORALIS MUSCLE. WE CLEANED THE AREA WITH ALCOHOL AND PROCEEDED TO PERFORM THE SAME FOR INJECTIONS DESCRIBED ABOVE BUT IN THE LEFT TEMPORALIS MUSCLE USING THE SAME LANDMARKS. AFTER THESE INJECTIONS WERE DONE, THE PATIENT WAS SEATED. FIRST, WE STARTED TO INJECT THE LEFT AND RIGHT OCCIPITALIS MUSCLE. I INJECTED AT THE FOLLOWING PLACES IN THE RIGHT AND LEFT MUSCLE. THE FIRST INJECTION WAS DONE AT THE MIDPOINT POSITION BETWEEN THE MASTOID PROCESS AND THE INION OF THE OCCIPITAL PROTUBERANCE. THE SECOND INJECTION WAS DONE APPROXIMATELY 1.5 CM SUPERIOR AND LATERAL OF THIS POINT. THE THIRD INJECTION WAS DONE APPROXIMATELY 1.5 CM SUPERIOR AND MEDIAL TO THIS FIRST INJECTION. NEXT, I PROCEEDED TO INJECT THE RIGHT AND LEFT PARASPINAL MUSCLES. LANDMARK OF THE INJECTION WERE APPROXIMATELY: FIRST INJECTION 3 CM BELOW THE INION AND 1 CM LATERAL TO THE MIDLINE AND SECOND INJECTION AT EACH SIDE WAS DONE APPROXIMATELY 1.5 CM SUPERIOR AND LATERAL OF THE FIRST INJECTION. THE LAST GROUP OF INJECTIONS WAS DONE OVER THE RIGHT AND LEFT TRAPEZIUS MUSCLE OVER THE SHOULDERS AREA. THE FIRST INJECTION WAS DONE AT THE MIDPOINT BETWEEN THE INFLECTION POINT BETWEEN THE NECK AND SHOULDER AND THE ACROMION. THE SECOND AND THIRD INJECTIONS WERE DONE APPROXIMATELY 2.5 CM LATERAL AND MEDIAL FROM THIS FIRST INJECTION. SAME TARGETS WERE USED IN THE RIGHT AND LEFT SIDE. IN TOTAL, I INJECTED 165 UNITS OF BOTOX. THE MEDICATIONS WERE VERIFIED WITH THE NURSE. PROCEDURE WAS DONE WITHOUT EVIDENCE OF PARESTHESIA OR ANY COMPLICATIONS. THE PATIENT TOLERATED THE PROCEDURE VERY WELL. ESTIMATED BLOOD LOSS WAS LESS THAN 5 ML. THE PATIENT WAS SENT TO THE RECOVERY ROOM FOR OBSERVATIONS. INJECTIONS WERE DONE AFTER CLEANING WITH ALCOHOL, USING ASEPTIC TECHNIQUES. POST PROCEDURE NOTE THE PROCEDURE DONE WAS DISCUSSED WITH THE PATIENT. THE PATIENT WILL BE SEEN IN A FOLLOW UP IN THE NEXT FEW WEEKS. I AM LOOKING FOR LONG LASTING PAIN RELIEF FOR THE PATIENT WITH THIS INTERVENTION. INSTRUCTIONS WERE GIVEN, QUESTIONS WERE ANSWERED, AND THE PATIENT EXPRESSED UNDERSTANDING AND AGREES WITH THE PLAN. I, ALFREDO JIMENEZ, DOCUMENTED THE ABOVE INFORMATION ACTING A SCRIBE FOR DR. LEONARDO. I HAVE REVIEWED THE ABOVE DOCUMENT, WRITTEN BY ALFREDO JIMENEZ, TIRE RECAPPER, AND I VERIFY THAT IT IS ACCURATE PN WORKMANS' COMP OPINION IN YOUR OPINION, WAS THE INCIDENT THAT THE PATIENT DESCRIBED THE COMPETENT MEDICAL CAUSE OF THIS INJURY/ILLNESS? YES ARE THE PATIENT'S COMPLAINTS CONSISTENT WITH HIS/HER HISTORY OF THE INJURY/ILLNESS? YES IS THE PATIENT'S HISTORY OF THE INJURY/ILLNESS CONSISTENT WITH YOUR OBJECTIVE FINDING? YES WHAT IS THE PERCENTAGE OF TEMPORARY IMPAIRMENT? TOTAL = 100% IS THE PATIENT WORKING? NO DOCTOR ON SITE: JAVON VALDEZ MD VISIT CODES PROCEDURE CODES 96878 CHEMOD[facility]ERV [facility] MIGRAINE DISPOSITION & COMMUNICATION FOLLOW UP FOLLOW UP WITH VICE PRESIDENT COMPLIANCE (REASON: POST BOTOX INJECTIONS TO HEAD, NECK AND SHOULDER AREAS) ELECTRONICALLY SIGNED BY JAVON LEONARDO MD, MD ON 05/27/2021 AT 02:07 PM EDT DISCLAIMER : THIS IS A VISIT SUMMARY EXTRACTED FROM THE [employer] CHART. IT IS NOT A COPY OF THE [employer] PROGRESS NOTE. NAHEED
== END ==
LOC: M PAIN 10:40
PROVIDERS: ATTEND Anesthesiology
DX: G43.709 Chronic migraine without aura, not intractable, without status migrainosus (principal); E11.9 Type 2 diabetes mellitus without complications; E03.9 Hypothyroidism, unspecified; Z88.1 Allergy status to other antibiotic agents; Z88.8 Allergy status to other drugs, medicaments and biological substances; Z79.4 Long term (current) use of insulin; Z79.899 Other long term (current) drug therapy
CPT/HCPCS: 64615; J0585

== ENCOUNTER → 2021-07-07 | Outpatient (CLI) | payer OTHER ==
[~2021-07-07] MED LIST changes: -BOTOX THERAPEUTIC 100 UNIT VIAL (J0585 PER 1 UNIT) IM ONE; -diazePAM 5MG TABLET As Ordered ONE; -oxyCODONE 5MG TAB As Ordered ONE
== END ==
LOC: M PAIN 09:30
PROVIDERS: ATTEND Anesthesiology
DX: M51.16 Intervertebral disc disorders with radiculopathy, lumbar region (principal); M48.062 Spinal stenosis, lumbar region with neurogenic claudication; E11.9 Type 2 diabetes mellitus without complications; I10 Essential (primary) hypertension; K21.9 Gastro-esophageal reflux disease without esophagitis; G43.909 Migraine, unspecified, not intractable, without status migrainosus; E07.9 Disorder of thyroid, unspecified; Z79.84 Long term (current) use of oral hypoglycemic drugs; Z79.899 Other long term (current) drug therapy; Z88.1 Allergy status to other antibiotic agents; Z88.8 Allergy status to other drugs, medicaments and biological substances

== ENCOUNTER → 2021-07-13 | Outpatient (CLI) | payer OTHER ==
[~2021-07-13] MED LIST changes: +BYDU2INJ7 SC; +CLAR10CA3 PO; +FLON1SPR
== END ==
LOC: M LABSMTC 10:33
PROVIDERS: ATTEND Anesthesiology
DX: Z01.818 Encounter for other preprocedural examination (principal); Z11.52 Encounter for screening for COVID-19

== ENCOUNTER 2021-07-18 10:39 | Day surgery (SDC) | payer OTHER ==
[~2021-07-18] VITALS: Ht 198.1 cm; Wt 148.8 kg
[2021-07-18] MEDS ORDERED: BUPIVACAINE HCL 0.25% 10ML VIAL As Ordered ONE (11:54)
[2021-07-18] MEDS ORDERED: dexameTHASONE 10MG/1ML VIAL PRES.FREE (J1100 PER 1MG) As Ordered ONE (11:55)
[2021-07-18] MEDS ORDERED: ISOVUE-300 61% 50ML VIAL As Ordered ONE (11:55)
[2021-07-18] MEDS ORDERED: LIDOCAINE 1% SDV 30ML VIAL As Ordered ONE (11:57)
[2021-07-18] MEDS ORDERED: BUPIVACAINE HCL 0.25% 30ML VIAL As Ordered ONE (11:58)
[2021-07-18] MEDS ORDERED: LIDOCAINE W/EPINEPHRINE 1% 20ML VIAL As Ordered ONE (12:00)
[2021-07-18] MEDS ORDERED: MIDAZOLAM INJ 2MG/2ML VIAL (J2250 PER 1MG) As Ordered ONE ×2 (12:17→12:45)
[2021-07-18] MEDS ORDERED: fentaNYL 100 MCG/2 ML INJECTION (J3010) As Ordered ONE ×2 (12:18→12:49)
[2021-07-18] MEDS ORDERED: propofoL 500 MG/50 ML VIAL As Ordered ONE (12:19)
[2021-07-18] MEDS ORDERED: LIDOCAINE 2% 100MG/5ML SDV (FOR ANES.) As Ordered ONE (12:20)
[2021-07-18] MEDS ORDERED: ONDANSETRON 4MG/2ML VIAL As Ordered ONE (12:49)
[2021-07-18] MEDS ORDERED: LABETALOL 100MG/20ML VIAL As Ordered ONE (13:03)
--- NOTE | 2021-07-18 13:54 | REP ---
INDICATION: INTERVERTEBRAL DISC DISORDER WITH RADICULOPATHY. COMPARISON: None. TECHNIQUE: Ninety-six views. 101.8 seconds of fluoroscopy time is reported. FINDINGS: A sequence of 96 last image hold fluoroscopically obtained spot radiographs of the lumbar spine document needle position and contrast injection associated with injection procedure. IMPRESSION: Procedural imaging. <Electronically signed by Bradley Rock > 07/18/21 [id number]
[2021-07-18 14:10] VITALS: BP 170/72
--- NOTE | 2021-07-19 11:47 | ROOPDOC ---
[facility] Report Of Operation Report of Operation Monty Keane : 1965 Date of procedure: 07/18/2021 Pre Procedure Diagnosis: Lumbar disc disorder with radiculopathy Post Procedure Diagnosis: Lumbar disc disorder with radiculopathy Procedure: Bilateral L4-L5 transforaminal epidural steroid injection under fluoroscopic guidance. Surgeon: Dr. Rishi Avila. Big Machine Consultant: None. Anesthesia: Local with monitored anesthesia care Pre Procedure Note: The patient with history of chronic low back pain. I evaluated the patient and reviewed the chart. I went over the risks, altern atives, and benefits associated with this procedure. The patient would like to proceed and give consent to performed the procedure. The patient denies unexplainable weight loss, fever, chills, or changes in urinary or bowel control. Description of Procedure: The patient was brought to the operating room and placed in the prone position. The lumbosacral area was cleaned with Betadine solution and draped aseptically. The procedure was done under sterile conditions. A timeout was performed where the consented site was verified with everyone in the room. Under fluoroscopic guidance, the target point was selected at the right and left transforaminal opening of L4. Target point was selected after lateral rotation and tilt of the magnifier of the C-arm. I confirmed again the site of target. Lidocaine 0.5% was used to numb the skin and the subcutaneous tissue below it. An Epimed introducer, 18-gauge, was advanced until I went close to the selected transforaminal openings. After proper position of the needles was achieved, a 22-gauge, Epimed needle, was placed inside of the introducer and advanced to the transforaminal opening of the selected sites. When proper position of the needle was achieved, Isovue-M dye 30%, 0.25 mL, was injected showing adequate spread of the dye. This was done under digital subtraction and angiography. There was no vascular update. Then, a solution of 2 mL of bupivacaine 0.25% and Dexamethasone 5 mg was injected at each site. The medication was verified with the nurse. There was no evidence of blood, paresthesia or cerebrospinal fluid during the procedure. The patient was sent to the recovery room. The patient was moving the extremities and doing well. There was no complication during the procedure. Estimated blood loss was less than 5 mL. Post Procedure Note: The procedure done was discussed with the patient. The patient will be seen in a follow up in the next few weeks. I am looking for long lasting pain relief for the patient with this intervention. Instructions were given, questions were answered, and the patient expressed understanding and agrees with the plan. Rishi Cota MD Jul 19, 2021 11:47
== END 2021-07-18 14:15 | disposition home or self-care (01) ==
LOC: M SDC 10:39
PROVIDERS: ATTEND Anesthesiology
DX: M51.16 Intervertebral disc disorders with radiculopathy, lumbar region (principal); M48.062 Spinal stenosis, lumbar region with neurogenic claudication; I10 Essential (primary) hypertension; E11.9 Type 2 diabetes mellitus without complications; E03.9 Hypothyroidism, unspecified; K21.9 Gastro-esophageal reflux disease without esophagitis; F32.9 Major depressive disorder, single episode, unspecified; R56.9 Unspecified convulsions; G89.21 Chronic pain due to trauma; G43.909 Migraine, unspecified, not intractable, without status migrainosus; M62.830 Muscle spasm of back; T88.53XA Unintended awareness under general anesthesia during procedure, initial encounter; Z98.1 Arthrodesis status; Z88.1 Allergy status to other antibiotic agents; Z88.8 Allergy status to other drugs, medicaments and biological substances; Z79.899 Other long term (current) drug therapy; Z79.891 Long term (current) use of opiate analgesic; Z79.4 Long term (current) use of insulin
CPT/HCPCS: 64483; J1100; J2250; J2405; J3010; Q9967

== ENCOUNTER → 2021-09-02 | Outpatient (CLI) | payer OTHER | LOC: M PAIN 10:15 | PROVIDERS: ATTEND Anesthesiology | DX: G89.29 Other chronic pain (principal); G43.909 Migraine, unspecified, not intractable, without status migrainosus; E11.9 Type 2 diabetes mellitus without complications; I10 Essential (primary) hypertension; E07.9 Disorder of thyroid, unspecified; K21.9 Gastro-esophageal reflux disease without esophagitis; Z79.4 Long term (current) use of insulin; Z79.899 Other long term (current) drug therapy; Z88.1 Allergy status to other antibiotic agents; Z88.8 Allergy status to other drugs, medicaments and biological substances ==

== ENCOUNTER → 2021-11-10 | Outpatient (CLI) | payer OTHER ==
[~2021-11-10] MED LIST changes: +POTA-151 PO; -POTA20TA6 PO
== END ==
LOC: M LABSMTC 11:14
PROVIDERS: ATTEND Anesthesiology
DX: Z01.812 Encounter for preprocedural laboratory examination (principal); Z11.52 Encounter for screening for COVID-19

== ENCOUNTER → 2021-12-10 | Outpatient (CLI) | payer OTHER | LOC: M LABSMTC 10:25 | PROVIDERS: ATTEND Anesthesiology | DX: Z01.818 Encounter for other preprocedural examination (principal); Z11.52 Encounter for screening for COVID-19 ==

== ENCOUNTER → 2021-12-15 | Outpatient (CLI) | payer OTHER ==
[~2021-12-15] MED LIST changes: +BOTOX THERAPEUTIC 100 UNIT VIAL (J0585 PER 1 UNIT) IM ONE; +diazePAM 5MG TABLET As Ordered ONE; +oxyCODONE 5MG TAB As Ordered ONE
== END ==
LOC: M PAIN 08:30
PROVIDERS: ATTEND Anesthesiology
DX: G43.709 Chronic migraine without aura, not intractable, without status migrainosus (principal); E11.9 Type 2 diabetes mellitus without complications; I10 Essential (primary) hypertension; G89.29 Other chronic pain; E07.9 Disorder of thyroid, unspecified; K21.9 Gastro-esophageal reflux disease without esophagitis; M25.562 Pain in left knee; Z79.84 Long term (current) use of oral hypoglycemic drugs; Z79.899 Other long term (current) drug therapy; Z88.1 Allergy status to other antibiotic agents; Z88.8 Allergy status to other drugs, medicaments and biological substances
CPT/HCPCS: 64615; J0585

== ENCOUNTER → 2022-01-16 | Outpatient (CLI) | payer OTHER ==
[~2022-01-16] MED LIST changes: -BOTOX THERAPEUTIC 100 UNIT VIAL (J0585 PER 1 UNIT) IM ONE; -diazePAM 5MG TABLET As Ordered ONE; -oxyCODONE 5MG TAB As Ordered ONE
== END ==
LOC: M TMPAIN 15:30 → M PAIN 15:30
PROVIDERS: ATTEND Anesthesiology
DX: G89.29 Other chronic pain (principal); M54.50 Low back pain, unspecified; M54.2 Cervicalgia; E11.9 Type 2 diabetes mellitus without complications; I10 Essential (primary) hypertension; E07.9 Disorder of thyroid, unspecified; K21.9 Gastro-esophageal reflux disease without esophagitis; G43.909 Migraine, unspecified, not intractable, without status migrainosus; Z79.4 Long term (current) use of insulin; Z79.899 Other long term (current) drug therapy; Z88.1 Allergy status to other antibiotic agents; Z88.8 Allergy status to other drugs, medicaments and biological substances

== ENCOUNTER → 2022-01-25 | Outpatient (CLI) | payer OTHER | LOC: M PAIN 10:30 | PROVIDERS: ATTEND Anesthesiology | DX: G43.109 Migraine with aura, not intractable, without status migrainosus (principal); E11.9 Type 2 diabetes mellitus without complications; I10 Essential (primary) hypertension; G89.29 Other chronic pain; E07.9 Disorder of thyroid, unspecified; K21.9 Gastro-esophageal reflux disease without esophagitis; M25.562 Pain in left knee; M62.830 Muscle spasm of back; Z79.4 Long term (current) use of insulin; Z79.899 Other long term (current) drug therapy; Z88.1 Allergy status to other antibiotic agents; Z88.8 Allergy status to other drugs, medicaments and biological substances ==

== ENCOUNTER → 2022-03-04 | Outpatient (CLI) | payer OTHER | LOC: M LABSMTC 10:47 | PROVIDERS: ATTEND Anesthesiology | DX: Z01.812 Encounter for preprocedural laboratory examination (principal); Z20.822 Contact with and (suspected) exposure to COVID-19 ==

== ENCOUNTER → 2022-03-08 | Outpatient (CLI) | payer OTHER ==
[~2022-03-08] MED LIST changes: +BOTOX THERAPEUTIC 100 UNIT VIAL (J0585 PER 1 UNIT) IM ONE; +diazePAM 5MG TABLET As Ordered ONE; +oxyCODONE 5MG TAB As Ordered ONE
== END ==
LOC: M PAIN 13:30
PROVIDERS: ATTEND Anesthesiology
DX: G43.709 Chronic migraine without aura, not intractable, without status migrainosus (principal); E11.9 Type 2 diabetes mellitus without complications; I10 Essential (primary) hypertension; G89.29 Other chronic pain; E07.9 Disorder of thyroid, unspecified; K21.9 Gastro-esophageal reflux disease without esophagitis; M25.562 Pain in left knee; Z98.1 Arthrodesis status; Z79.899 Other long term (current) drug therapy; Z88.1 Allergy status to other antibiotic agents; Z88.8 Allergy status to other drugs, medicaments and biological substances
CPT/HCPCS: 64615; J0585

== ENCOUNTER → 2022-04-12 | Outpatient (CLI) | payer OTHER ==
[~2022-04-12] MED LIST changes: -BOTOX THERAPEUTIC 100 UNIT VIAL (J0585 PER 1 UNIT) IM ONE; -TRIA37.53 PO; +TRIA37.577 PO; -diazePAM 5MG TABLET As Ordered ONE; -oxyCODONE 5MG TAB As Ordered ONE
== END ==
LOC: M PAIN 10:45
PROVIDERS: ATTEND Anesthesiology
DX: M79.10 Myalgia, unspecified site (principal); M79.18 Myalgia, other site; E11.9 Type 2 diabetes mellitus without complications; I10 Essential (primary) hypertension; G89.29 Other chronic pain; E07.9 Disorder of thyroid, unspecified; K21.9 Gastro-esophageal reflux disease without esophagitis; G43.909 Migraine, unspecified, not intractable, without status migrainosus; M25.562 Pain in left knee; M62.830 Muscle spasm of back; Z79.4 Long term (current) use of insulin; Z79.899 Other long term (current) drug therapy; Z88.1 Allergy status to other antibiotic agents; Z88.8 Allergy status to other drugs, medicaments and biological substances

== ENCOUNTER → 2022-05-01 | Outpatient (CLI) | payer OTHER | LOC: M PAIN 12:45 | PROVIDERS: ATTEND Anesthesiology | DX: G43.909 Migraine, unspecified, not intractable, without status migrainosus (principal); E11.9 Type 2 diabetes mellitus without complications; I10 Essential (primary) hypertension; G89.29 Other chronic pain; E07.9 Disorder of thyroid, unspecified; K21.9 Gastro-esophageal reflux disease without esophagitis; M25.562 Pain in left knee; Z98.1 Arthrodesis status; M62.830 Muscle spasm of back; R29.6 Repeated falls; Z79.84 Long term (current) use of oral hypoglycemic drugs; Z79.890 Hormone replacement therapy; Z79.4 Long term (current) use of insulin; Z79.899 Other long term (current) drug therapy; Z88.1 Allergy status to other antibiotic agents; Z88.8 Allergy status to other drugs, medicaments and biological substances ==

== ENCOUNTER → 2022-05-18 | Outpatient (CLI) | payer OTHER | LOC: M TMPAIN 15:15 → M PAIN 15:15 | PROVIDERS: ATTEND Anesthesiology | DX: M54.2 Cervicalgia (principal); E11.9 Type 2 diabetes mellitus without complications; I10 Essential (primary) hypertension; G89.29 Other chronic pain; E07.9 Disorder of thyroid, unspecified; K21.9 Gastro-esophageal reflux disease without esophagitis; G43.909 Migraine, unspecified, not intractable, without status migrainosus; M25.562 Pain in left knee; Z98.1 Arthrodesis status; M62.830 Muscle spasm of back; Z79.4 Long term (current) use of insulin; Z79.890 Hormone replacement therapy; Z79.899 Other long term (current) drug therapy; Z88.1 Allergy status to other antibiotic agents; Z88.8 Allergy status to other drugs, medicaments and biological substances ==

== ENCOUNTER → 2022-06-11 | Outpatient (CLI) | payer OTHER ==
[~2022-06-11] MED LIST changes: +GABA-282; +TIZA10TA
== END ==
LOC: M LABSMTC 10:30
PROVIDERS: ATTEND Anesthesiology
DX: Z01.812 Encounter for preprocedural laboratory examination (principal); Z11.52 Encounter for screening for COVID-19

== ENCOUNTER → 2022-06-13 | Outpatient (CLI) | payer OTHER ==
[~2022-06-13] MED LIST changes: +BOTOX THERAPEUTIC 100 UNIT VIAL (J0585 PER 1 UNIT) IM ONE; +diazePAM 5MG TABLET As Ordered ONE; +oxyCODONE 5MG TAB As Ordered ONE
== END ==
LOC: M PAIN 10:40
PROVIDERS: ATTEND Anesthesiology
DX: G43.709 Chronic migraine without aura, not intractable, without status migrainosus (principal); E11.9 Type 2 diabetes mellitus without complications; I10 Essential (primary) hypertension; G89.29 Other chronic pain; E07.9 Disorder of thyroid, unspecified; K21.9 Gastro-esophageal reflux disease without esophagitis; M25.562 Pain in left knee; Z98.1 Arthrodesis status; M62.830 Muscle spasm of back; R29.6 Repeated falls; Z79.890 Hormone replacement therapy; Z79.899 Other long term (current) drug therapy; Z88.1 Allergy status to other antibiotic agents; Z88.8 Allergy status to other drugs, medicaments and biological substances
CPT/HCPCS: 64615; J0585

== ENCOUNTER → 2022-06-20 | Outpatient (CLI) | payer MEDICARE, MEDICAID, OTHER ==
[~2022-06-20] MED LIST changes: -BOTOX THERAPEUTIC 100 UNIT VIAL (J0585 PER 1 UNIT) IM ONE; -diazePAM 5MG TABLET As Ordered ONE; -oxyCODONE 5MG TAB As Ordered ONE
== END ==
LOC: M RAD 09:13
PROVIDERS: ATTEND Internal Medicine
DX: D45 Polycythemia vera (principal); K76.0 Fatty (change of) liver, not elsewhere classified

== ENCOUNTER → 2022-08-08 | Outpatient (CLI) | payer OTHER | LOC: M PAIN 13:00 | PROVIDERS: ATTEND Anesthesiology | DX: M79.10 Myalgia, unspecified site (principal); M79.18 Myalgia, other site; E11.9 Type 2 diabetes mellitus without complications; I10 Essential (primary) hypertension; G89.29 Other chronic pain; E07.9 Disorder of thyroid, unspecified; K21.9 Gastro-esophageal reflux disease without esophagitis; G43.909 Migraine, unspecified, not intractable, without status migrainosus; M25.562 Pain in left knee; Z98.1 Arthrodesis status; Z79.4 Long term (current) use of insulin; Z88.1 Allergy status to other antibiotic agents; Z88.8 Allergy status to other drugs, medicaments and biological substances ==

== ENCOUNTER → 2022-08-20 | Outpatient (CLI) | payer MEDICARE, MEDICAID, OTHER | LOC: M LABSMTC 11:46 | PROVIDERS: ATTEND Anesthesiology | DX: Z01.812 Encounter for preprocedural laboratory examination (principal); Z11.52 Encounter for screening for COVID-19 ==

== ENCOUNTER → 2022-08-24 | Outpatient (CLI) | payer OTHER ==
[~2022-08-24] MED LIST changes: +BUPIVACAINE HCL 0.25% 10ML VIAL As Ordered ONE; +BUPIVACAINE HCL 0.25% 30ML VIAL As Ordered ONE; +TRIAMCINOLONE ACETONIDE SUSP 40 MG/ML VIAL (J3301) As Ordered ONE; +diazePAM 5MG TABLET As Ordered ONE; +oxyCODONE 5MG TAB As Ordered ONE
== END ==
LOC: M PAIN 10:30
PROVIDERS: ATTEND Anesthesiology
DX: M79.12 Myalgia of auxiliary muscles, head and neck (principal); M79.18 Myalgia, other site; E11.9 Type 2 diabetes mellitus without complications; I10 Essential (primary) hypertension; G89.29 Other chronic pain; E07.9 Disorder of thyroid, unspecified; K21.9 Gastro-esophageal reflux disease without esophagitis; G43.909 Migraine, unspecified, not intractable, without status migrainosus; M25.562 Pain in left knee; Z98.1 Arthrodesis status; M62.830 Muscle spasm of back; Z79.4 Long term (current) use of insulin; Z79.899 Other long term (current) drug therapy; Z88.1 Allergy status to other antibiotic agents; Z88.8 Allergy status to other drugs, medicaments and biological substances
CPT/HCPCS: 20553; J3301

== ENCOUNTER → 2022-09-04 | Outpatient (CLI) | payer OTHER ==
[~2022-09-04] MED LIST changes: -BUPIVACAINE HCL 0.25% 10ML VIAL As Ordered ONE; -BUPIVACAINE HCL 0.25% 30ML VIAL As Ordered ONE; +BYDU2INJ7; +FLUTISP; +KETO10TAB; +LEVE1INJ5; +LORA-579; +OMEG12003 PO; -TRIAMCINOLONE ACETONIDE SUSP 40 MG/ML VIAL (J3301) As Ordered ONE; -diazePAM 5MG TABLET As Ordered ONE; -oxyCODONE 5MG TAB As Ordered ONE
== END ==
LOC: M PAIN 12:30
PROVIDERS: ATTEND Anesthesiology
DX: G89.29 Other chronic pain (principal); G43.709 Chronic migraine without aura, not intractable, without status migrainosus; M54.50 Low back pain, unspecified; M79.18 Myalgia, other site; E11.9 Type 2 diabetes mellitus without complications; I10 Essential (primary) hypertension; E03.9 Hypothyroidism, unspecified; Z88.1 Allergy status to other antibiotic agents; Z88.5 Allergy status to narcotic agent; Z88.8 Allergy status to other drugs, medicaments and biological substances; Z79.4 Long term (current) use of insulin; Z79.890 Hormone replacement therapy; Z79.899 Other long term (current) drug therapy

== ENCOUNTER → 2022-09-19 | Outpatient (CLI) | payer OTHER | LOC: M PAIN 13:00 | PROVIDERS: ATTEND Anesthesiology | DX: G89.29 Other chronic pain (principal); M47.812 Spondylosis without myelopathy or radiculopathy, cervical region; E11.9 Type 2 diabetes mellitus without complications; I10 Essential (primary) hypertension; E07.9 Disorder of thyroid, unspecified; K21.9 Gastro-esophageal reflux disease without esophagitis; G43.909 Migraine, unspecified, not intractable, without status migrainosus; M25.562 Pain in left knee; R29.6 Repeated falls; Z88.1 Allergy status to other antibiotic agents; Z88.8 Allergy status to other drugs, medicaments and biological substances; Z79.84 Long term (current) use of oral hypoglycemic drugs; Z79.899 Other long term (current) drug therapy ==

== ENCOUNTER → 2022-10-05 | Outpatient (CLI) | payer OTHER | LOC: M PAIN 07:45 | PROVIDERS: ATTEND Anesthesiology | DX: M47.812 Spondylosis without myelopathy or radiculopathy, cervical region (principal); E11.9 Type 2 diabetes mellitus without complications; I10 Essential (primary) hypertension; E03.9 Hypothyroidism, unspecified; G43.909 Migraine, unspecified, not intractable, without status migrainosus; Z88.1 Allergy status to other antibiotic agents; Z88.8 Allergy status to other drugs, medicaments and biological substances; Z79.4 Long term (current) use of insulin; Z79.84 Long term (current) use of oral hypoglycemic drugs; Z79.890 Hormone replacement therapy; Z79.899 Other long term (current) drug therapy | CPT/HCPCS: 76000; G0463 ==

== ENCOUNTER → 2022-11-09 | Outpatient (CLI) | payer OTHER, MEDICARE, MEDICAID | LOC: M LABSMTC 09:21 | PROVIDERS: ATTEND Anesthesiology | DX: Z01.818 Encounter for other preprocedural examination (principal) ==

== ENCOUNTER → 2022-11-13 | Outpatient (CLI) | payer OTHER ==
[~2022-11-13] MED LIST changes: +BOTOX THERAPEUTIC 100 UNIT VIAL IM ONE; +diazePAM 5MG TABLET As Ordered ONE; +oxyCODONE 5MG TAB As Ordered ONE
== END ==
LOC: M PAIN 13:30
PROVIDERS: ATTEND Anesthesiology
DX: G43.709 Chronic migraine without aura, not intractable, without status migrainosus (principal); E11.9 Type 2 diabetes mellitus without complications; M25.562 Pain in left knee; G89.29 Other chronic pain; M62.830 Muscle spasm of back; R29.6 Repeated falls; I10 Essential (primary) hypertension; E07.9 Disorder of thyroid, unspecified; K21.9 Gastro-esophageal reflux disease without esophagitis; G43.909 Migraine, unspecified, not intractable, without status migrainosus; Z79.4 Long term (current) use of insulin; Z79.890 Hormone replacement therapy; Z79.899 Other long term (current) drug therapy; Z88.1 Allergy status to other antibiotic agents; Z88.8 Allergy status to other drugs, medicaments and biological substances
CPT/HCPCS: 64615; J0585

== ENCOUNTER → 2022-11-20 | Outpatient (CLI) | payer OTHER ==
[~2022-11-20] MED LIST changes: -BOTOX THERAPEUTIC 100 UNIT VIAL IM ONE; -diazePAM 5MG TABLET As Ordered ONE; -oxyCODONE 5MG TAB As Ordered ONE
== END ==
LOC: M PAIN 09:30
PROVIDERS: ATTEND Anesthesiology
DX: M54.50 Low back pain, unspecified (principal); M79.18 Myalgia, other site; G89.29 Other chronic pain; E11.9 Type 2 diabetes mellitus without complications; I10 Essential (primary) hypertension; E03.9 Hypothyroidism, unspecified; G43.909 Migraine, unspecified, not intractable, without status migrainosus; Z88.1 Allergy status to other antibiotic agents; Z88.8 Allergy status to other drugs, medicaments and biological substances; Z79.4 Long term (current) use of insulin; Z79.84 Long term (current) use of oral hypoglycemic drugs; Z79.890 Hormone replacement therapy; Z79.899 Other long term (current) drug therapy

== ENCOUNTER → 2022-12-14 | Outpatient (CLI) | payer OTHER ==
[~2022-12-14] MED LIST changes: +INSU100I6; +INSU100I6 SC; -LEVE1INJ5; -LEVE1INJ5 SC
== END ==
LOC: M PAIN 11:30
PROVIDERS: ATTEND Anesthesiology
DX: M47.812 Spondylosis without myelopathy or radiculopathy, cervical region (principal); E11.9 Type 2 diabetes mellitus without complications; I10 Essential (primary) hypertension; G89.29 Other chronic pain; E07.9 Disorder of thyroid, unspecified; K21.9 Gastro-esophageal reflux disease without esophagitis; G43.909 Migraine, unspecified, not intractable, without status migrainosus; Z79.890 Hormone replacement therapy; Z79.4 Long term (current) use of insulin; Z79.899 Other long term (current) drug therapy; Z88.1 Allergy status to other antibiotic agents; Z88.8 Allergy status to other drugs, medicaments and biological substances

== ENCOUNTER → 2022-12-18 | Outpatient (CLI) | payer OTHER ==
[~2022-12-18] MED LIST changes: +TIZA6CAP PO
== END ==
LOC: M PAIN 14:00
PROVIDERS: ATTEND Anesthesiology
DX: G89.29 Other chronic pain (principal); G43.709 Chronic migraine without aura, not intractable, without status migrainosus; E11.9 Type 2 diabetes mellitus without complications; I10 Essential (primary) hypertension; E07.9 Disorder of thyroid, unspecified; K21.9 Gastro-esophageal reflux disease without esophagitis; Z98.1 Arthrodesis status; M25.562 Pain in left knee; R29.6 Repeated falls; M62.830 Muscle spasm of back; Z88.1 Allergy status to other antibiotic agents; Z88.8 Allergy status to other drugs, medicaments and biological substances; Z79.84 Long term (current) use of oral hypoglycemic drugs; Z79.899 Other long term (current) drug therapy

== ENCOUNTER → 2022-12-21 | Outpatient (CLI) | payer OTHER ==
[~2022-12-21] MED LIST changes: -TIZA6CAP PO
== END ==
LOC: M LABSMTC 12:56
PROVIDERS: ATTEND Anesthesiology
DX: Z01.812 Encounter for preprocedural laboratory examination (principal); Z20.822 Contact with and (suspected) exposure to COVID-19

== ENCOUNTER → 2022-12-21 | Outpatient (CLI) | payer OTHER ==
[~2022-12-21] MED LIST changes: +BUPIVACAINE HCL 0.25% 30ML VIAL As Ordered ONE; +FLUT50SP17; -FLUTISP; +ISOVUE-M 300 61% 15ML VIAL As Ordered ONE; +LIDOCAINE 1% SDV 30ML VIAL As Ordered ONE; +MIDAZOLAM INJ 2MG/2ML VIAL As Ordered ONE; +TIZA6CAP PO; +TRIAMCINOLONE ACETONIDE SUSP 40MG/ML 1ML VIAL As Ordered ONE; +diphenhydrAMINE 50MG/ML VIAL As Ordered ONE; +fentaNYL 100 MCG/2 ML INJECTION As Ordered ONE
== END ==
LOC: M PAIN 12:00
PROVIDERS: ATTEND Anesthesiology
DX: M47.812 Spondylosis without myelopathy or radiculopathy, cervical region (principal); E11.9 Type 2 diabetes mellitus without complications; I10 Essential (primary) hypertension; G89.29 Other chronic pain; E07.9 Disorder of thyroid, unspecified; K21.9 Gastro-esophageal reflux disease without esophagitis; M62.830 Muscle spasm of back; M25.562 Pain in left knee; G43.909 Migraine, unspecified, not intractable, without status migrainosus; Z88.1 Allergy status to other antibiotic agents; Z88.8 Allergy status to other drugs, medicaments and biological substances; Z98.1 Arthrodesis status; Z79.84 Long term (current) use of oral hypoglycemic drugs; Z79.890 Hormone replacement therapy; Z79.4 Long term (current) use of insulin; Z79.899 Other long term (current) drug therapy
CPT/HCPCS: 64490; 64491; J1200; J2250; J3010; J3301; Q9967; S0020

== ENCOUNTER → 2023-01-17 | Outpatient (CLI) | payer OTHER ==
[~2023-01-17] MED LIST changes: -BUPIVACAINE HCL 0.25% 30ML VIAL As Ordered ONE; -ISOVUE-M 300 61% 15ML VIAL As Ordered ONE; -LIDOCAINE 1% SDV 30ML VIAL As Ordered ONE; -MIDAZOLAM INJ 2MG/2ML VIAL As Ordered ONE; -TRIAMCINOLONE ACETONIDE SUSP 40MG/ML 1ML VIAL As Ordered ONE; -diphenhydrAMINE 50MG/ML VIAL As Ordered ONE; -fentaNYL 100 MCG/2 ML INJECTION As Ordered ONE
== END ==
LOC: M PAIN 15:15
PROVIDERS: ATTEND Anesthesiology
DX: G89.29 Other chronic pain (principal); M54.2 Cervicalgia; M47.812 Spondylosis without myelopathy or radiculopathy, cervical region; E11.9 Type 2 diabetes mellitus without complications; I10 Essential (primary) hypertension; E07.9 Disorder of thyroid, unspecified; K21.9 Gastro-esophageal reflux disease without esophagitis; Z79.890 Hormone replacement therapy; Z79.899 Other long term (current) drug therapy; Z79.84 Long term (current) use of oral hypoglycemic drugs; Z88.1 Allergy status to other antibiotic agents; Z88.8 Allergy status to other drugs, medicaments and biological substances

== ENCOUNTER → 2023-02-05 | Outpatient (CLI) | payer OTHER ==
[~2023-02-05] MED LIST changes: +BOTOX THERAPEUTIC 100 UNIT VIAL IM ONE; +diazePAM 5MG TABLET As Ordered ONE; +oxyCODONE 5MG TAB As Ordered ONE
== END ==
LOC: M PAIN 11:00
PROVIDERS: ATTEND Anesthesiology
DX: G43.709 Chronic migraine without aura, not intractable, without status migrainosus (principal); E11.9 Type 2 diabetes mellitus without complications; I10 Essential (primary) hypertension; E03.9 Hypothyroidism, unspecified; Z88.1 Allergy status to other antibiotic agents; Z88.8 Allergy status to other drugs, medicaments and biological substances; Z79.4 Long term (current) use of insulin; Z79.84 Long term (current) use of oral hypoglycemic drugs; Z79.890 Hormone replacement therapy; Z79.899 Other long term (current) drug therapy
CPT/HCPCS: 64615; J0585

== ENCOUNTER → 2023-02-28 | Outpatient (CLI) | payer OTHER ==
[~2023-02-28] MED LIST changes: -BOTOX THERAPEUTIC 100 UNIT VIAL IM ONE; -diazePAM 5MG TABLET As Ordered ONE; -oxyCODONE 5MG TAB As Ordered ONE
== END ==
LOC: M RAD 10:10
PROVIDERS: ATTEND Orthopaedic Surgery
DX: M12.06 Chronic postrheumatic arthropathy [Jaccoud], knee (principal)
CPT/HCPCS: 78315; A9503

== ENCOUNTER → 2023-03-05 | Outpatient (CLI) | payer OTHER ==
[2023-03-05 13:02] LABS: BASO # 0.1 10^3/uL (0.0-0.2); BASO % 0.8 % (0.0-1.0); EOS # 0.3 10^3/uL (0.0-0.5); EOS % 2.9 % (0.0-3.0); HEMATOCRIT 45.8 % (42.0-52.0); HEMOGLOBIN 13.8 g/dl (13.5-17.5); LYMPH # 1.8 10^3/uL (1.5-5.0); LYMPH % 17.6 % (24.0-44.0); MEAN CORPUSCULAR HEMOGLOBIN 25.1 pg (27.0-33.0); MEAN CORPUSCULAR HGB CONC 30.1 g/dl (32.0-36.5); MEAN CORPUSCULAR VOLUME 83.3 fl (80.0-96.0); MONO % 9.5 % (2.0-8.0); NEUTROPHILS # 7.1 10^3/uL (1.5-8.5); NEUTROPHILS % 68.3 % (36.0-66.0); PLATELET COUNT, AUTOMATED 313 10^3/uL (150-450); WHITE BLOOD COUNT 10.4 10^3/uL (4.0-10.0)
[2023-03-05 13:54] LABS: ERYTHROCYTE SEDIMENTATION RATE 20 mm/hr (0-20)
== END ==
LOC: M PLALAB 10:30
PROVIDERS: ATTEND Orthopaedic Surgery
DX: S43.431D Superior glenoid labrum lesion of right shoulder, subsequent encounter (principal)

== ENCOUNTER → 2023-03-27 | Outpatient (CLI) | payer OTHER | LOC: M PAIN 08:30 | PROVIDERS: ATTEND Anesthesiology | DX: M47.812 Spondylosis without myelopathy or radiculopathy, cervical region (principal); G89.29 Other chronic pain; E11.9 Type 2 diabetes mellitus without complications; I10 Essential (primary) hypertension; E07.9 Disorder of thyroid, unspecified; K21.9 Gastro-esophageal reflux disease without esophagitis; G43.909 Migraine, unspecified, not intractable, without status migrainosus; M25.562 Pain in left knee; M62.830 Muscle spasm of back; Z79.4 Long term (current) use of insulin; Z79.890 Hormone replacement therapy; Z79.899 Other long term (current) drug therapy; Z88.1 Allergy status to other antibiotic agents; Z88.8 Allergy status to other drugs, medicaments and biological substances ==

== ENCOUNTER → 2023-05-15 | Outpatient (CLI) | payer OTHER ==
[~2023-05-15] MED LIST changes: +ISOVUE-M 300 61% 15ML VIAL As Ordered ONE; +LIDOCAINE 1% SDV 30ML VIAL As Ordered ONE; +MIDAZOLAM INJ 2MG/2ML VIAL As Ordered ONE; +TRIAMCINOLONE ACETONIDE SUSP 40MG/ML 1ML VIAL As Ordered ONE; +diphenhydrAMINE 50MG/ML VIAL As Ordered ONE; +fentaNYL 100 MCG/2 ML INJECTION As Ordered ONE
== END ==
LOC: M PAIN 13:00
PROVIDERS: ATTEND Anesthesiology
DX: M47.812 Spondylosis without myelopathy or radiculopathy, cervical region (principal); G89.29 Other chronic pain; E11.9 Type 2 diabetes mellitus without complications; I10 Essential (primary) hypertension; E03.9 Hypothyroidism, unspecified; G43.909 Migraine, unspecified, not intractable, without status migrainosus; Z88.1 Allergy status to other antibiotic agents; Z88.8 Allergy status to other drugs, medicaments and biological substances; Z79.4 Long term (current) use of insulin; Z79.890 Hormone replacement therapy; Z79.899 Other long term (current) drug therapy
CPT/HCPCS: 64490; 64491; 99152; J0665; J1200; J2250; J3010; J3301; Q9967

== ENCOUNTER → 2023-06-15 | Outpatient (CLI) | payer OTHER ==
[~2023-06-15] MED LIST changes: -ISOVUE-M 300 61% 15ML VIAL As Ordered ONE; -LIDOCAINE 1% SDV 30ML VIAL As Ordered ONE; -MIDAZOLAM INJ 2MG/2ML VIAL As Ordered ONE; -TRIAMCINOLONE ACETONIDE SUSP 40MG/ML 1ML VIAL As Ordered ONE; -diphenhydrAMINE 50MG/ML VIAL As Ordered ONE; -fentaNYL 100 MCG/2 ML INJECTION As Ordered ONE
== END ==
LOC: M PAIN 10:00
PROVIDERS: ATTEND Nurse Practitioner Family
DX: M47.812 Spondylosis without myelopathy or radiculopathy, cervical region (principal); G89.29 Other chronic pain; E11.9 Type 2 diabetes mellitus without complications; I10 Essential (primary) hypertension; E07.9 Disorder of thyroid, unspecified; K21.9 Gastro-esophageal reflux disease without esophagitis; G43.909 Migraine, unspecified, not intractable, without status migrainosus; Z79.890 Hormone replacement therapy; Z79.899 Other long term (current) drug therapy; Z79.4 Long term (current) use of insulin; Z88.1 Allergy status to other antibiotic agents; Z88.8 Allergy status to other drugs, medicaments and biological substances

== ENCOUNTER → 2023-08-20 | Outpatient (CLI) | payer OTHER ==
[~2023-08-20] MED LIST changes: +MELO15TA28 PO
== END ==
LOC: M PAIN 14:00
PROVIDERS: ATTEND Nurse Practitioner Family
DX: M79.12 Myalgia of auxiliary muscles, head and neck (principal); G89.29 Other chronic pain; E11.9 Type 2 diabetes mellitus without complications; I10 Essential (primary) hypertension; E07.9 Disorder of thyroid, unspecified; K21.9 Gastro-esophageal reflux disease without esophagitis; G43.909 Migraine, unspecified, not intractable, without status migrainosus; M25.562 Pain in left knee; Z79.890 Hormone replacement therapy; Z79.899 Other long term (current) drug therapy; Z88.1 Allergy status to other antibiotic agents; Z88.8 Allergy status to other drugs, medicaments and biological substances

== ENCOUNTER → 2023-09-17 | Outpatient (CLI) | payer MEDICARE, MEDICAID, OTHER ==
[~2023-09-17] MED LIST changes: -FLUT50SP17; +FLUTISP
== END ==
LOC: M SLEEP 20:00
PROVIDERS: ATTEND Physician Assistant
DX: G47.33 Obstructive sleep apnea (adult) (pediatric) (principal)

== ENCOUNTER → 2023-10-03 | Outpatient (CLI) | payer OTHER | LOC: M PAIN 13:45 → M TMPAIN 13:45 | PROVIDERS: ATTEND Anesthesiology | DX: G43.709 Chronic migraine without aura, not intractable, without status migrainosus (principal); Z79.4 Long term (current) use of insulin; Z79.899 Other long term (current) drug therapy; Z88.1 Allergy status to other antibiotic agents; Z88.8 Allergy status to other drugs, medicaments and biological substances ==